=== PATIENT | male | born 1980 | race Caucasian/White ===

== ENCOUNTER 2018-01-05 03:18 | Inpatient (IN) ==
[2018-01-05] MEDS ORDERED: Sodium Chlor 0.9% Inj 500 ML IV.SIG ONE (03:25)
--- NOTE | 2018-01-05 03:35 | ED ---
HPI General Chief complaint: Overdose Stated complaint: Medical Time Seen by Provider: 01/05/18 03:24 Source: patient and EMS Mode of arrival: EMS Limitations: altered mental status (The patient is drowsy on arrival.) History of Present Illness HPI narrative: The patient is a 37 year old male who presents to the [facility] emergency department with a history of being found by a friend with a decreased level of consciousness. The patient according to the friend had used heroin this evening. The patient was noted to be apneic by ambulance services. The patient had emesis noted on his person. The patient had a thready pulse. The patient had IV access obtained and was given an total 2.4 mg of Narcan before he became more awake and alert. The patient continues to be slightly drowsy, however he had 2 episodes of vomiting in route to this facility. The patient reportedly has wheezes, rhonchi in bilateral lung gorman with diminished O2 saturations in spite of use of nonrebreather mask at high as 91%. Ambulance services are concerned that the patient may have aspirated. They report that they placed an NG tube in the patient and suctioned out a significant amount of fluid from his stomach, however he did not tolerate having the tube in place and it was removed prior to arrival. The patient's history is limited as the patient is drowsy on exam and IV heroin this evening. He reports that this is the first time that he is used heroin. He denies using any other drugs. Related Data Home Medications Medication Instructions Recorded Confirmed Unable to Obtain Home Meds 01/05/18 01/05/18 Allergies Allergy/AdvReac Type Severity Reaction Status Date / Time No Allergy Information Allergy Unverified 01/05/18 03:22 Available Review of Systems ROS Unobtainable ROS Unobtainable: unobtainable due to mental status PMFSH History History Provided By: Patient and Medical Record Medical History Medical History IVDU (intravenous drug user) (Acute) Patient denies medical problems (Acute) Surgical History Surgical History No history of previous surgery (Acute) Social History Social History Substance History: Active Abuse Smoking Status: Unknown if ever smoked How Often Do You Have a Drink Containing Alcohol: Unable to Obtain Recent Travel in [facility] within the Last 8 Weeks: No Recent Out of Country Travel within the Last 8 Weeks: No Exam Const General: cooperative and lethargic Orientation: awake, oriented to person, not oriented to place and not oriented to time [facility] Head: normocephalic and atraumatic Nose: no nasal discharge and no epistaxis Mouth: moist mucous membranes Throat: posterior oropharynx normal and uvula midline Eyes Sclera: normal sclerae Pupils: PERRL Neck Neck: no meningeal signs, trachea midline and no JVD Resp Effort & Inspection: audible wheezes and uses accessory muscles Auscultation: no crackles, rhonchi, wheezes and other (Patient has scattered rhonchi audible. The patient has expiratory wheezes audible anteriorly and posteriorly.) Cardio Rate: tachycardic (Sinus tachycardia in the 1 teens, no pulse deficits to the extremities on simultaneous auscultation and palpation of his radial artery) Rhythm: regular rhythm Heart Sounds: no gallops, no murmurs and no rubs GI Inspection: non-distended Palpation: soft, no hepatosplenomegaly and nontender Skin General: dry skin (warm) Neuro General: alert, awake, oriented (To person, however not place or time. ) and other ( The patient is uncooperative with formal neurologic testing although he does not have any noted facial asymmetry. The patient does spontaneously move all extremities with equal strength. Patient has intact sensation over all dermatomes.) Speech: speech normal Motor: no movement abnormalities noted Extrem General: normal to inspection, no clubbing, no cyanosis and no edema Procedures Intubation Time Out Performed: Yes Sedative: etomidate Mg Given: 20 Paralytic: succinylcholine Mg Given: 100 Laryngoscope: fiber optic video scope ET Tube Size: 8 ET Tube Uncuffed: Yes Tube Secured Depth (cm): 23 Tube Secured Location: teeth Tube Placement Confirmation: visualized tube passing through cords, equal breath sounds bilaterally, no breath sounds over epigastrium and confirmation by capnometry Patient Tolerated Procedure: well Intubation Complications: none Course Initial Documented Vital Signs Temperature 97.6 F 01/05/18 03:22 Pulse Rate 114 H 01/05/18 03:22 Respiratory Rate 28 H 01/05/18 03:22 Blood Pressure 150/86 H 01/05/18 03:22 Pulse Oximetry 91 L 01/05/18 03:22 Last Documented Vital Signs Temperature 100.3 F H 01/05/18 16:00 Pulse Rate 109 H 01/05/18 18:00 Respiratory Rate 20 01/05/18 18:00 Blood Pressure 106/63 01/05/18 18:00 Pulse Oximetry 91 L 01/05/18 18:00 Critical Care Time Critical Care Time: Yes Total Critical Care Time: 38 Attestation: Aggregate critical care time was 38 minutes. Time to perform other separately billable procedures was not included in the critical care time. My time did not include minutes spent treating any other patients simultaneously or on activities that did not directly contribute to the patient's treatment. The services I provided to this patient were to treat and/or prevent clinically significant deterioration that could result in: Hypoxic brain injury, versus respiratory failure, versus cardiovascular collapse from recurrent apnea, versus sepsis I provided critical care services requiring my management, as noted below: Chart data review, documentation time, medication orders and management, vital sign assessments/reviewing monitor data, ordering and reviewing lab tests, ordering and interpreting/reviewing x-rays and diagnostic studies, care of the patient and discussion of the patient with the admitting physicians. Medical Decision Making MDM Narrative Medical decision making narrative: During the course of the patient's emergency department visit, the patient's history, examination, and differential diagnosis were reviewed with the patient. The patient was placed on a monitor tech with oximetry and frequent blood pressure monitoring. The patient had IV access obtained and blood work sent for analysis. Diagnostic evaluation was started regarding the patient altered level of consciousness, possible aspiration. The patient was initially provided normal saline 500 mL bolus x1, DuoNeb's x3, continuation on a nonrebreather mask to supplement his oxygenation. The patient was being observed in the emergency department, the patient had another episode of vomiting. The patient was given Zofran 4 mg IV. The chest x -ray revealed a significant infiltrate in the right lower lung field, with continued desaturation in spite of placement on a nonrebreather mask, the patient was prepped for rapid sequence intubation which he consented to. The patient was intubated by me. An OG tube was placed to low intermittent suction, Barlow catheter was placed to gravity. The patient was placed on a propofol drip for sedation on the ventilator. Diagnostic studies revealed a white count of 14.3, hemoglobin 15.4, platelets 248 was 75.1 neutrophils, PT 10.3, PTT 24.9, chemistry revealed a BUN of 19, creatinine 1.44, calcium 7.5, AST 61, cardiac enzymes within normal limits, BNP is 4, lipase 162. Urine drug screen is positive for opiates, cocaine, cannabinoids. Alcohol level is 61, acetaminophen is less than 2, salicylate 2.4. A CT scan of the brain showed no acute intracranial abnormality, air- fluid levels in the right maxillary and sphenoid sinuses. CT scan of the chest revealed bilateral pulmonary opacity with prominent areas of consolidation in the lower lobes, central peribronchial vascular opacities in the mid to upper lung zones, difficult to diagnose if this is related to pulmonary edema versus infection. He has prominent elevation of the right hemidiaphragm, old right clavicle fracture. The patient's case including history, pertinent physical examination findings, and laboratory studies were discussed with Dr. Cortes. It was agreed that the patient would be admitted to the intensivit's service. The patient was admitted to the hospital in critical condition and sent to a bed under the care of the public health nutritionist's service. Medical Screen Exam Complete: Yes Emergency Medical Condition: Yes Differential Diagnosis Differential Diagnosis: Accidental versus intentional heroin overdose, versus polysubstance abuse, versus pulmonary edema, versus congestive heart failure, versus endocarditis, versus aspiration Medical Records Medical records reviewed: Yes I reviewed the patient's medical records. Lab Data Lab results reviewed: Yes I reviewed the patient's lab results. Result diagrams: 01/05/18 14:20 01/05/18 14:20 Lab Results 01/05/18 01/05/18 01/05/18 Range/Units 03:45 03:45 03:45 WBC 14.3 H (4.0-11.0) th/mm3 RBC 4.64 (4.50-5.90) mil/mm3 Hgb 15.4 (13.0-17.0) gm/dL Hct 46.1 (39.0-51.0) % MCV 99.3 (80.0-100.0) fL MCH 33.3 (27.0-34.0) pg MCHC 33.5 (32.0-36.0) % RDW 13.5 (11.6-17.2) % Plt Count 248 (150-450) th/mm3 MPV 8.6 (7.0-11.0) fL Neut % (Auto) 75.1 H (16.0-70.0) % Lymph % (Auto) 15.4 (9.0-44.0) % [place] % (Auto) 8.4 H (0.0-8.0) % Eos % (Auto) 0.5 (0.0-4.0) % Baso % (Auto) 0.6 (0.0-2.0) % Neut # (Auto) 10.7 H (1.8-7.7) th/mm3 Lymph # (Auto) 2.2 (1.0-4.8) th/mm3 [place] # (Auto) 1.2 H (0.0-0.9) th/mm3 Eos # (Auto) 0.1 (0.0-0.4) th/mm3 Baso # (Auto) 0.1 (0.0-0.2) th/mm3 WBC Differential . Differential Comment Auto diff final PT 10.3 (9.8-11.6) sec INR 1.0 Ratio APTT 24.9 (23.4-31.7) sec Puncture Site Patient Temperature O2 Saturation (90-100) % ABG pH (7.380-7.420) ABG pCO2 (38-42) mmHg ABG pO2 (61-120) mmHg ABG HCO3 (22-26) mmol/L ABG O2 Content (12.0-20.0) Vol % ABG Base Excess (-2-2) mmol/L ABG Methemoglobin (0-2) % Chang Test Hemoglobin (12.0-16.0) G/DL Carboxyhemoglobin (0-4) % O2 Delivery Device Vent Setting Inspired O2 % Critical Value Sodium 142 (136-145) meq/L Potassium 4.0 (3.5-5.1) meq/L Chloride 107 (98-107) meq/L Carbon Dioxide 24.4 (21.0-32.0) meq/L Anion Gap 11 (5-15) meq/L BUN 19 H (7-18) mg/dL Creatinine 1.44 H (0.60-1.30) mg/dL Estimated GFR 56 L (>89) mL/min POC Glucose (68-110) mg/dl Random Glucose 206 H (74-106) mg/dL Lactic Acid (0.4-2.0) mmol/L Calcium 7.5 L (8.5-10.1) mg/dL Magnesium (1.5-2.5) mg/dL Total Bilirubin 0.4 (0.2-1.0) mg/dL AST 61 H (15-37) U/L ALT 64 (12-78) U/L Alkaline Phosphatase 82 (45-117) U/L Total Creatine Kinase 121 (39-308) U/L CK-MB (CK-2) Less than 1.0 (0.5-3.6) ng/mL Troponin I Less than 0.02 L (0.02-0.05) ng/mL B-Natriuretic Peptide (0-100) pg/mL Total Protein 8.3 H (6.4-8.2) g/dL Albumin 4.1 (3.4-5.0) g/dL Lipase 162 (73-393) U/L Nasal Screen MRSA (PCR) (Negative) Salicylates Urine Opiates Screen (Neg) Acetaminophen (10.0-30.0) mcg/mL Ur Barbiturates Screen (Neg) Ur Amphetamines Screen (Neg) U Benzodiazepines Scrn (Neg) Urine Cocaine Screen (Neg) U Cannabinoids Screen (Neg) Serum Alcohol 61 H (0-5) mg/dL 01/05/18 01/05/18 01/05/18 Range/Units 03:45 03:45 03:45 WBC (4.0-11.0) th/mm3 RBC (4.50-5.90) mil/mm3 Hgb (13.0-17.0) gm/dL Hct (39.0-51.0) % MCV (80.0-100.0) fL MCH (27.0-34.0) pg MCHC (32.0-36.0) % RDW (11.6-17.2) % Plt Count (150-450) th/mm3 MPV (7.0-11.0) fL Neut % (Auto) (16.0-70.0) % Lymph % (Auto) (9.0-44.0) % [place] % (Auto) (0.0-8.0) % Eos % (Auto) (0.0-4.0) % Baso % (Auto) (0.0-2.0) % Neut # (Auto) (1.8-7.7) th/mm3 Lymph # (Auto) (1.0-4.8) th/mm3 [place] # (Auto) (0.0-0.9) th/mm3 Eos # (Auto) (0.0-0.4) th/mm3 Baso # (Auto) (0.0-0.2) th/mm3 WBC Differential Differential Comment PT (9.8-11.6) sec INR Ratio APTT (23.4-31.7) sec Puncture Site Patient Temperature O2 Saturation (90-100) % ABG pH (7.380-7.420) ABG pCO2 (38-42) mmHg ABG pO2 (61-120) mmHg ABG HCO3 (22-26) mmol/L ABG O2 Content (12.0-20.0) Vol % ABG Base Excess (-2-2) mmol/L ABG Methemoglobin (0-2) % Chang Test Hemoglobin (12.0-16.0) G/DL Carboxyhemoglobin (0-4) % O2 Delivery Device Vent Setting Inspired O2 % Critical Value Sodium (136-145) meq/L Potassium (3.5-5.1) meq/L Chloride (98-107) meq/L Carbon Dioxide (21.0-32.0) meq/L Anion Gap (5-15) meq/L BUN (7-18) mg/dL Creatinine (0.60-1.30) mg/dL Estimated GFR (>89) mL/min POC Glucose (68-110) mg/dl Random Glucose (74-106) mg/dL Lactic Acid (0.4-2.0) mmol/L Calcium (8.5-10.1) mg/dL Magnesium (1.5-2.5) mg/dL Total Bilirubin (0.2-1.0) mg/dL AST (15-37) U/L ALT (12-78) U/L Alkaline Phosphatase (45-117) U/L Total Creatine Kinase (39-308) U/L CK-MB (CK-2) (0.5-3.6) ng/mL Troponin I (0.02-0.05) ng/mL B-Natriuretic Peptide 4 (0-100) pg/mL Total Protein (6.4-8.2) g/dL Albumin (3.4-5.0) g/dL Lipase (73-393) U/L Nasal Screen MRSA (PCR) (Negative) Salicylates Cancelled Urine Opiates Screen (Neg) Acetaminophen Less than 2.0 L (10.0-30.0) mcg/mL Ur Barbiturates Screen (Neg) Ur Amphetamines Screen (Neg) U Benzodiazepines Scrn (Neg) Urine Cocaine Screen (Neg) U Cannabinoids Screen (Neg) Serum Alcohol (0-5) mg/dL 01/05/18 01/05/18 01/05/18 Range/Units 03:45 04:20 04:24 WBC (4.0-11.0) th/mm3 RBC (4.50-5.90) mil/mm3 Hgb (13.0-17.0) gm/dL Hct (39.0-51.0) % MCV (80.0-100.0) fL MCH (27.0-34.0) pg MCHC (32.0-36.0) % RDW (11.6-17.2) % Plt Count (150-450) th/mm3 MPV (7.0-11.0) fL Neut % (Auto) (16.0-70.0) % Lymph % (Auto) (9.0-44.0) % [place] % (Auto) (0.0-8.0) % Eos % (Auto) (0.0-4.0) % Baso % (Auto) (0.0-2.0) % Neut # (Auto) (1.8-7.7) th/mm3 Lymph # (Auto) (1.0-4.8) th/mm3 [place] # (Auto) (0.0-0.9) th/mm3 Eos # (Auto) (0.0-0.4) th/mm3 Baso # (Auto) (0.0-0.2) th/mm3 WBC Differential Differential Comment PT (9.8-11.6) sec INR Ratio APTT (23.4-31.7) sec Puncture Site Patient Temperature O2 Saturation (90-100) % ABG pH (7.380-7.420) ABG pCO2 (38-42) mmHg ABG pO2 (61-120) mmHg ABG HCO3 (22-26) mmol/L ABG O2 Content (12.0-20.0) Vol % ABG Base Excess (-2-2) mmol/L ABG Methemoglobin (0-2) % Chang Test Hemoglobin (12.0-16.0) G/DL Carboxyhemoglobin (0-4) % O2 Delivery Device Vent Setting Inspired O2 % Critical Value Sodium (136-145) meq/L Potassium (3.5-5.1) meq/L Chloride (98-107) meq/L Carbon Dioxide (21.0-32.0) meq/L Anion Gap (5-15) meq/L BUN (7-18) mg/dL Creatinine (0.60-1.30) mg/dL Estimated GFR (>89) mL/min POC Glucose (68-110) mg/dl Random Glucose (74-106) mg/dL Lactic Acid 2.6 H (0.4-2.0) mmol/L Calcium (8.5-10.1) mg/dL Magnesium (1.5-2.5) mg/dL Total Bilirubin (0.2-1.0) mg/dL AST (15-37) U/L ALT (12-78) U/L Alkaline Phosphatase (45-117) U/L Total Creatine Kinase (39-308) U/L CK-MB (CK-2) (0.5-3.6) ng/mL Troponin I (0.02-0.05) ng/mL B-Natriuretic Peptide (0-100) pg/mL Total Protein (6.4-8.2) g/dL Albumin (3.4-5.0) g/dL Lipase (73-393) U/L Nasal Screen MRSA (PCR) (Negative) Salicylates 2.4 L Urine Opiates Screen Pos H (Neg) Acetaminophen (10.0-30.0) mcg/mL Ur Barbiturates Screen Neg (Neg) Ur Amphetamines Screen Neg (Neg) U Benzodiazepines Scrn Neg (Neg) Urine Cocaine Screen Pos H (Neg) U Cannabinoids Screen Pos H (Neg) Serum Alcohol (0-5) mg/dL 01/05/18 01/05/18 01/05/18 Range/Units 05:00 07:00 07:33 WBC (4.0-11.0) th/mm3 RBC (4.50-5.90) mil/mm3 Hgb (13.0-17.0) gm/dL Hct (39.0-51.0) % MCV (80.0-100.0) fL MCH (27.0-34.0) pg MCHC (32.0-36.0) % RDW (11.6-17.2) % Plt Count (150-450) th/mm3 MPV (7.0-11.0) fL Neut % (Auto) (16.0-70.0) % Lymph % (Auto) (9.0-44.0) % [place] % (Auto) (0.0-8.0) % Eos % (Auto) (0.0-4.0) % Baso % (Auto) (0.0-2.0) % Neut # (Auto) (1.8-7.7) th/mm3 Lymph # (Auto) (1.0-4.8) th/mm3 [place] # (Auto) (0.0-0.9) th/mm3 Eos # (Auto) (0.0-0.4) th/mm3 Baso # (Auto) (0.0-0.2) th/mm3 WBC Differential Differential Comment PT (9.8-11.6) sec INR Ratio APTT (23.4-31.7) sec Puncture Site Right radial Patient Temperature 98.6 O2 Saturation 93 (90-100) % ABG pH 7.26 L* (7.380-7.420) ABG pCO2 52 H* (38-42) mmHg ABG pO2 133 H (61-120) mmHg ABG HCO3 23 (22-26) mmol/L ABG O2 Content 19.8 (12.0-20.0) Vol % ABG Base Excess -3.4 L (-2-2) mmol/L ABG Methemoglobin 1.0 (0-2) % Chang Test Present Hemoglobin 15.0 (12.0-16.0) G/DL Carboxyhemoglobin 4.1 H (0-4) % O2 Delivery Device Ventilator Vent Setting Inspired O2 100 % Critical Value Yes Sodium (136-145) meq/L Potassium (3.5-5.1) meq/L Chloride (98-107) meq/L Carbon Dioxide (21.0-32.0) meq/L Anion Gap (5-15) meq/L BUN (7-18) mg/dL Creatinine (0.60-1.30) mg/dL Estimated GFR (>89) mL/min POC Glucose (68-110) mg/dl Random Glucose (74-106) mg/dL Lactic Acid 2.6 H (0.4-2.0) mmol/L Calcium (8.5-10.1) mg/dL Magnesium (1.5-2.5) mg/dL Total Bilirubin (0.2-1.0) mg/dL AST (15-37) U/L ALT (12-78) U/L Alkaline Phosphatase (45-117) U/L Total Creatine Kinase (39-308) U/L CK-MB (CK-2) (0.5-3.6) ng/mL Troponin I (0.02-0.05) ng/mL B-Natriuretic Peptide (0-100) pg/mL Total Protein (6.4-8.2) g/dL Albumin (3.4-5.0) g/dL Lipase (73-393) U/L Nasal Screen MRSA (PCR) Not detected (Negative) Salicylates Urine Opiates Screen (Neg) Acetaminophen (10.0-30.0) mcg/mL Ur Barbiturates Screen (Neg) Ur Amphetamines Screen (Neg) U Benzodiazepines Scrn (Neg) Urine Cocaine Screen (Neg) U Cannabinoids Screen (Neg) Serum Alcohol (0-5) mg/dL 01/05/18 01/05/18 01/05/18 Range/Units 09:36 12:57 14:17 WBC (4.0-11.0) th/mm3 RBC (4.50-5.90) mil/mm3 Hgb (13.0-17.0) gm/dL Hct (39.0-51.0) % MCV (80.0-100.0) fL MCH (27.0-34.0) pg MCHC (32.0-36.0) % RDW (11.6-17.2) % Plt Count (150-450) th/mm3 MPV (7.0-11.0) fL Neut % (Auto) (16.0-70.0) % Lymph % (Auto) (9.0-44.0) % [place] % (Auto) (0.0-8.0) % Eos % (Auto) (0.0-4.0) % Baso % (Auto) (0.0-2.0) % Neut # (Auto) (1.8-7.7) th/mm3 Lymph # (Auto) (1.0-4.8) th/mm3 [place] # (Auto) (0.0-0.9) th/mm3 Eos # (Auto) (0.0-0.4) th/mm3 Baso # (Auto) (0.0-0.2) th/mm3 WBC Differential Differential Comment PT (9.8-11.6) sec INR Ratio APTT (23.4-31.7) sec Puncture Site Right radial Left radial Patient Temperature 98.6 98.6 O2 Saturation 89 L* 94 (90-100) % ABG pH 7.31 L 7.36 L (7.380-7.420) ABG pCO2 50 H 45 H (38-42) mmHg ABG pO2 68 90 (61-120) mmHg ABG HCO3 24 25 (22-26) mmol/L ABG O2 Content 19.7 20.5 H (12.0-20.0) Vol % ABG Base Excess -1.0 -0.2 (-2-2) mmol/L ABG Methemoglobin 1.4 1.5 (0-2) % Chang Test Present Present Hemoglobin 15.8 15.4 (12.0-16.0) G/DL Carboxyhemoglobin 1.9 1.2 (0-4) % O2 Delivery Device Ventilator Ventilator Vent Setting Prvc ac Prvc ac Inspired O2 75 70 % Critical Value Yes No Sodium (136-145) meq/L Potassium (3.5-5.1) meq/L Chloride (98-107) meq/L Carbon Dioxide (21.0-32.0) meq/L Anion Gap (5-15) meq/L BUN (7-18) mg/dL Creatinine (0.60-1.30) mg/dL Estimated GFR (>89) mL/min POC Glucose 122 H (68-110) mg/dl Random Glucose (74-106) mg/dL Lactic Acid (0.4-2.0) mmol/L Calcium (8.5-10.1) mg/dL Magnesium (1.5-2.5) mg/dL Total Bilirubin (0.2-1.0) mg/dL AST (15-37) U/L ALT (12-78) U/L Alkaline Phosphatase (45-117) U/L Total Creatine Kinase (39-308) U/L CK-MB (CK-2) (0.5-3.6) ng/mL Troponin I (0.02-0.05) ng/mL B-Natriuretic Peptide (0-100) pg/mL Total Protein (6.4-8.2) g/dL Albumin (3.4-5.0) g/dL Lipase (73-393) U/L Nasal Screen MRSA (PCR) (Negative) Salicylates Urine Opiates Screen (Neg) Acetaminophen (10.0-30.0) mcg/mL Ur Barbiturates Screen (Neg) Ur Amphetamines Screen (Neg) U Benzodiazepines Scrn (Neg) Urine Cocaine Screen (Neg) U Cannabinoids Screen (Neg) Serum Alcohol (0-5) mg/dL 01/05/18 01/05/18 Range/Units 14:20 14:20 WBC 8.0 (4.0-11.0) th/mm3 RBC 4.44 L (4.50-5.90) mil/mm3 Hgb 15.4 (13.0-17.0) gm/dL Hct 43.3 (39.0-51.0) % MCV 97.6 (80.0-100.0) fL MCH 34.6 H (27.0-34.0) pg MCHC 35.5 (32.0-36.0) % RDW 13.4 (11.6-17.2) % Plt Count 180 (150-450) th/mm3 MPV 8.9 (7.0-11.0) fL Neut % (Auto) 80.4 H (16.0-70.0) % Lymph % (Auto) 6.7 L (9.0-44.0) % [place] % (Auto) 12.5 H (0.0-8.0) % Eos % (Auto) 0.3 (0.0-4.0) % Baso % (Auto) 0.1 (0.0-2.0) % Neut # (Auto) 6.4 (1.8-7.7) th/mm3 Lymph # (Auto) 0.5 L (1.0-4.8) th/mm3 [place] # (Auto) 1.0 H (0.0-0.9) th/mm3 Eos # (Auto) 0.0 (0.0-0.4) th/mm3 Baso # (Auto) 0.0 (0.0-0.2) th/mm3 WBC Differential . Differential Comment Auto diff final PT (9.8-11.6) sec INR Ratio APTT (23.4-31.7) sec Puncture Site Patient Temperature O2 Saturation (90-100) % ABG pH (7.380-7.420) ABG pCO2 (38-42) mmHg ABG pO2 (61-120) mmHg ABG HCO3 (22-26) mmol/L ABG O2 Content (12.0-20.0) Vol % ABG Base Excess (-2-2) mmol/L ABG Methemoglobin (0-2) % Chang Test Hemoglobin (12.0-16.0) G/DL Carboxyhemoglobin (0-4) % O2 Delivery Device Vent Setting Inspired O2 % Critical Value Sodium 145 (136-145) meq/L Potassium 3.9 (3.5-5.1) meq/L Chloride 111 H (98-107) meq/L Carbon Dioxide 26.6 (21.0-32.0) meq/L Anion Gap 7 (5-15) meq/L BUN 20 H (7-18) mg/dL Creatinine 1.13 (0.60-1.30) mg/dL Estimated GFR 73 L (>89) mL/min POC Glucose (68-110) mg/dl Random Glucose 108 H (74-106) mg/dL Lactic Acid (0.4-2.0) mmol/L Calcium 8.0 L (8.5-10.1) mg/dL Magnesium 1.5 (1.5-2.5) mg/dL Total Bilirubin 1.3 H (0.2-1.0) mg/dL AST 41 H (15-37) U/L ALT 48 (12-78) U/L Alkaline Phosphatase 56 (45-117) U/L Total Creatine Kinase (39-308) U/L CK-MB (CK-2) (0.5-3.6) ng/mL Troponin I (0.02-0.05) ng/mL B-Natriuretic Peptide (0-100) pg/mL Total Protein 6.3 L D (6.4-8.2) g/dL Albumin 3.3 L D (3.4-5.0) g/dL Lipase (73-393) U/L Nasal Screen MRSA (PCR) (Negative) Salicylates Urine Opiates Screen (Neg) Acetaminophen (10.0-30.0) mcg/mL Ur Barbiturates Screen (Neg) Ur Amphetamines Screen (Neg) U Benzodiazepines Scrn (Neg) Urine Cocaine Screen (Neg) U Cannabinoids Screen (Neg) Serum Alcohol (0-5) mg/dL Imaging Data Radiologist's impression: Chest CT 01/05/18 00:00 CONCLUSION: 1. Bilateral pulmonary opacity with prominent areas of consolidation in the lower lobes. Central peribronchovascular opacities in the mid to upper lung zones. Difficult diagnosis is pulmonary edema versus infection. 2. No significant pleural effusion. 3. Prominent elevation of the right hemidiaphragm. 4. Old right clavicle fracture. Chest X-Ray 01/05/18 03:25 CONCLUSION: 1. Prominent elevation of right hemidiaphragm. 2. Right lower lobe consolidation versus atelectasis. 3. Small to moderate sized right pleural effusion. Chest X-Ray 01/05/18 04:08 CONCLUSION: Persistent elevation of the right hemidiaphragm. Increased patchy bilateral pulmonary opacity. Right pleural effusion unchanged. Head CT 01/05/18 05:01 CONCLUSION: 1. No acute intracranial findings. 2. Air-fluid levels in the right maxillary and sphenoid sinuses suggesting possible acute sinusitis versus air-fluid levels related to intubation.. . ECG Data Attestation: I personally reviewed and interpreted this ECG as follows: Interpretation: The patient had an EKG done on arrival. The patient's EKG reveals a sinus tachycardia rate of 115, QRS duration is 95 ms, QTC [address] segment elevation. Discharge Plan Discharge Disposition Patient Disposition: 30 Still Patient Discharge Details Diagnosis: Respiratory failure, Heroin overdose Physicians Team ED Provider: Leeanne Lovett Primary Care Provider: UNKNOWN, Attending Provider: Izzy Cortes Status ED Status: Left Department Discharge Information Discharge Date/Time: 01/05/18 06:01
[2018-01-05] MEDS ORDERED: Propofol 1000 mg/100 ml Inj 1,000 MG/100 ML BOTTLE IV.CONT PRN (03:44)
[2018-01-05] MEDS ORDERED: Etomidate Inj 40 MG/20 ML Vial IV.PUSH ONE (03:44)
[2018-01-05] MEDS ORDERED: Succinylcholine Inj 100 MG/5 ML Syringe IV.PUSH ONE (03:44)
[2018-01-05 03:53] LABS: Baso # (Auto) 0.1 th/mm3 (0.0-0.2); Baso % (Auto) 0.6 % (0.0-2.0); Eos # (Auto) 0.1 th/mm3 (0.0-0.4); Eos % (Auto) 0.5 % (0.0-4.0); Hematocrit 46.1 % (39.0-51.0); Hemoglobin 15.4 gm/dL (13.0-17.0); Lymph # (Auto) 2.2 th/mm3 (1.0-4.8); Lymph % (Auto) 15.4 % (9.0-44.0); Mean Corpuscular HGB Conc 33.5 % (32.0-36.0); Mean Corpuscular Hemoglobin 33.3 pg (27.0-34.0); Mean Corpuscular Volume 99.3 fL (80.0-100.0); Mean Platelet Volume 8.6 fL (7.0-11.0); Mono # (Auto) 1.2 th/mm3 (0.0-0.9); Mono % (Auto) 8.4 % (0.0-8.0); Neut # (Auto) 10.7 th/mm3 (1.8-7.7); Neut % (Auto) 75.1 % (16.0-70.0); Platelet Count 248 th/mm3 (150-450); Red Blood Count 4.64 mil/mm3 (4.50-5.90); Red Cell Distribution Width 13.5 % (11.6-17.2); White Blood Count 14.3 th/mm3 (4.0-11.0)
--- NOTE | 2018-01-05 03:53 | XR ---
EXAM DATE: 01/05/2018 3:48 AM EST AGE/SEX: 37 years / Male INDICATIONS: Short of breath. Possible overdose. CLINICAL DATA: This is the patient's initial encounter. Patient reports that signs and symptoms have been present for 1 day and indicates a pain score of Nonresponsive. MEDICAL/SURGICAL HISTORY: Non-responsive. Non-responsive. COMPARISON: No prior exams available for comparison. FINDINGS: Single AP view of the chest. Elevation of the right hemidiaphragm. Small to moderate-sized right pleu ral effusion. Right lower lobe consolidation versus atelectasis. Left lung clear. No evidence of pneu mothorax. Cardiomediastinal silhouette within normal limits. CONCLUSION: 1. Prominent elevation of right hemidiaphragm. 2. Right lower lobe consolidation versus atelectasis. 3. Small to moderate sized right pleural effusion. Electronically signed by: Joseph Locke MD 01/05/2018 3:52 AM EST
[2018-01-05 04:04] LABS: Activated Partial Thrombo Time 24.9 sec (23.4-31.7); Prothrombin Time 10.3 sec (9.8-11.6)
[2018-01-05 04:12] LABS: Alanine Aminotransferase 64 U/L (12-78)
[2018-01-05 04:16] LABS: Alkaline Phosphatase 82 U/L (45-117); Creatine Kinase 121 U/L (39-308); Total Protein 8.3 g/dL (6.4-8.2)
[2018-01-05 04:17] LABS: Albumin 4.1 g/dL (3.4-5.0); Anion Gap 11 meq/L (5-15); Aspartate Aminotransferase 61 U/L (15-37); Blood Urea Nitrogen 19 mg/dL (7-18); Calcium 7.5 mg/dL (8.5-10.1); Carbon Dioxide 24.4 meq/L (21.0-32.0); Chloride 107 meq/L (98-107); Glomerular Filtration Rate 56 mL/min (>89); Glucose,Random 206 mg/dL (74-106); Lipase 162 U/L (73-393); Sodium 142 meq/L (136-145)
[2018-01-05 04:24] LABS: Alcohol 61 mg/dL (0-5)
[2018-01-05] MEDS ORDERED: Ampicillin/Sulbactam Inj 3 GM in Sodium Chloride 0.9% Inj 100 ML IV.SIG ONE (04:24)
[2018-01-05 04:43] LABS: Amphetamine Screen,Urine Neg (Neg); Barbiturate Screen,Urine Neg (Neg); Cannabinoid Screen,Urine Pos (Neg); Cocaine Screen,Urine Pos (Neg)
[2018-01-05 04:46] LABS: Opiate Screen,Urine Pos (Neg)
[2018-01-05] MEDS ORDERED: fentaNYL Citrate Inj 100 MCG/2 ML Ampul IV PUSH PRN (04:48)
[2018-01-05] MEDS ORDERED: Bisacodyl 10 MG Supp RECTAL PRN (04:48)
--- NOTE | 2018-01-05 05:04 | P.HPCC ---
History of Present Illness Service: Critical care medicine Primary Care Physician: UNKNOWN Chief Complaint: Opioid overdose, vomiting, hypoxia History of Present Illness: 37-year-old male who is brought to [facility] emergency department after friends contacted [facility] due to decreased mental status with suspected heroin overdose. He had used heroin earlier in the evening. [facility] reportedly found him laying in emesis with a thready pulse. They gave him sequential doses of Narcan to a total of 2.4 mg IV at which point he became more awake and alert. He then had multiple episodes of vomiting in route. NG tube was placed by the paramedics and they aspirated gastric contents and then removed s NG prior to arrival. His room air sats were reportedly 84% and he was placed on NR. Patient told Dr. Lovett that this was his first time using heroin and that he injected it. CXR demonstrated RLL opacity. He was started on Unasyn for aspiration pneumonia and given nebs. He eventually was intubated due to hypoxia with sats in high 80s despite nonrebreather. Talkback Host consulted for admission. - Diagnosis (1) Heroin overdose (2) Polysubstance abuse (3) Cocaine abuse (4) Elevated ETOH level (5) Marijuana abuse (6) TORREY (acute kidney injury) (7) Severe sepsis (8) Acute respiratory failure with hypoxia (9) Aspiration pneumonia (10) Vomiting (11) Hyperglycemia Review of Systems unobtainable due to endotracheal tube, unobtainable due to mental status PMFSH - History History Provided By: Patient, Medical Record - Medical / Surgical Hx Neg / Unobtainable Medical Problems Denied: Unable to Obtain Surgical History: Unable to Obtain - Medical History Medical History: Medical History (Last Updated 01/05/18 @ 03:25 by Jodie Vaz) Patient denies medical problems - Surgical History Surgical History: Surgical History (Last Updated 01/05/18 @ 03:25 by Jodie Vaz) No history of previous surgery - Social History I have reviewed the patient's Social History: Yes - Tobacco History Smoking Status: Unknown if ever smoked - Alcohol History How Often Do You Have a Drink Containing Alcohol: Unable to Obtain - Substance Use History Substance History: Active Abuse - Substance Use Type LSD, Mushrooms Status: Active Route Used: Inhalation - Travel History Recent Travel in the [facility] Within the Last 8 Weeks: No Recent Travel Out of the Country Within the Last 8 Weeks: No - Immunization History Tetanus Immunization: Unable to Assess Medications and Allergies Active Medications: Active Medications Acetaminophen (Tylenol) 650 mg PO Q6H PRN PRN Reason: PAIN 1-10 AND/OR FEVER >101F Al Hydroxide/Mg Hydroxide (Milk Of Magnesia Liq) 30 ml PO Q12H PRN PRN Reason: Mild Constipation Albuterol (Albuterol Neb (Prn)) 2.5 mg NEB Q2HR NEB PRN PRN Reason: SHORTNESS OF BREATH/WHEEZING Albuterol (Duoneb Neb (Ocsar)) 1 ampul NEB Q6HR NEB OSCAR Bisacodyl (Dulcolax Supp) 10 mg RECTAL DAILY PRN PRN Reason: SEVERE CONSITIPATION Chlorhexidine Gluconate (Chlorhexidine 2% Cloth) 3 pack TOPICAL DAILY@0400 OSCAR Stop: 01/11/18 03:59 Chlorhexidine Gluconate (Chlorhexidine 2% Cloth) 3 pack TOPICAL DAILY@0400 PRN PRN Reason: Extra cloth needed Stop: 01/11/18 03:59 Dextrose (D50w Vial) 50 ml IV.PUSH UNSCH PRN PRN Reason: PER HYPOGLYCEMIA PROTOCOL Famotidine (Pepcid Pf Inj) 20 mg IV.PUSH Q12HR OSCAR Fentanyl Citrate (Fentanyl Inj) 50 mcg IV PUSH Q1H PRN PRN Reason: Pain scale 6-10, &/or sedation Glucagon (Glucagon Inj) 1 mg OTHER PRN PRN PRN Reason: for Hypoglycemia Protocol Propofol (Diprivan 1000 Mg/100 Ml Inj) 1,000 mg in 100 mls @ 2.585 mls/hr IV.CONT TITRATE PRN; Protocol PRN Reason: Per Protocol Last Titration: 01/05/18 04:31 Dose: 60 mcg/kg/min, 31.03 mls/hr Ampicillin Sodium/Sulbactam (Sodium 3 gm/ Sodium Chloride) 100 mls @ 200 mls/ hr IV.SIG Q6H OSCAR Potassium Chloride/Dextrose/Sod Cl (D5w/1/2ns + Kcl 20 Meq Inj) 1,000 mls @ 100 mls/hr IV.CONT .Q10H OSCAR Insulin Aspart (Novolog Insulin Correctional Sugar Inj) 0 unit SQ Q6HR OSCAR; Protocol Lactulose (Lactulose Liq) 30 ml PO DAILY PRN PRN Reason: SEVERE CONSITIPATION Ondansetron HCl (Zofran Inj) 4 mg IV.PUSH Q6H PRN PRN Reason: NAUSEA OR VOMITING Senna/Docusate Sodium (Rosette-Colace) 1 tab PO BID OSCAR Sennosides (Senokot) 17.2 mg PO Q12H PRN PRN Reason: Moderate Constipation Sodium Chloride (Ns Flush) 2 ml IV.FLUSH PRN PRN PRN Reason: FLUSH AFTER USING IV ACCESS Sodium Chloride (Ns Flush) 2 ml IV.FLUSH BID OSCAR Sodium Chloride (Ns Flush) 2 ml IV.FLUSH PRN PRN PRN Reason: FLUSH AFTER USING IV ACCESS Allergies Allergy/AdvReac Type Severity Reaction Status Date / Time No Allergy Information Allergy Unverified 01/05/18 03:22 Available Home Medications Medication Instructions Recorded Confirmed Type Unable to Obtain Home Meds 01/05/18 01/05/18 History Results - Labs CBC & Chem 7: 01/05/18 03:45 01/05/18 03:45 Labs: Short CBC 01/05/18 Range/Units 03:45 WBC 14.3 H (4.0-11.0) th/mm3 Hgb 15.4 (13.0-17.0) gm/dL Hct 46.1 (39.0-51.0) % Plt Count 248 (150-450) th/mm3 BMP 01/05/18 03:45 Sodium 142 Potassium 4.0 Chloride 107 Carbon Dioxide 24.4 BUN 19 H Creatinine 1.44 H Calcium 7.5 L Cardiac Enzymes 01/05/18 Range/Units 03:45 Total Creatine Kinase 121 (39-308) U/L CK-MB (CK-2) Less than 1.0 (0.5-3.6) ng/mL Troponin I Less than 0.02 L (0.02-0.05) ng/mL Liver Function 01/05/18 Range/Units 03:45 Total Bilirubin 0.4 (0.2-1.0) mg/dL AST 61 H (15-37) U/L ALT 64 (12-78) U/L Alkaline Phosphatase 82 (45-117) U/L Albumin 4.1 (3.4-5.0) g/dL - Imaging Impressions Chest X-Ray 01/05/18 03:25 CONCLUSION: 1. Prominent elevation of right hemidiaphragm. 2. Right lower lobe consolidation versus atelectasis. 3. Small to moderate sized right pleural effusion. Exam Vital signs: Vital Signs 01/05/18 03:22 01/05/18 03:24 01/05/18 03:25 Temperature 97.6 F Pulse Rate 114 H 114 H 118 H Respiratory Rate 28 H 16 Blood Pressure 150/86 H Pulse Oximetry 91 L 01/05/18 03:33 01/05/18 03:35 01/05/18 03:42 Temperature Pulse Rate 116 H 118 H 120 H Respiratory Rate 29 H 24 16 Blood Pressure 142/77 H Pulse Oximetry 86 L 01/05/18 04:08 01/05/18 04:09 01/05/18 04:17 Temperature Pulse Rate 106 H 109 H 106 H Respiratory Rate 14 25 H Blood Pressure 132/75 150/80 H Pulse Oximetry 93 L 91 L 97 01/05/18 04:20 01/05/18 04:45 Temperature Pulse Rate 96 H Respiratory Rate 23 14 Blood Pressure 132/70 Pulse Oximetry 94 L 98 Intake & Output 01/04/18 01/04/18 01/05/18 06:59 18:59 06:59 Intake Total 500 / 500 Balance 500 / 500 Weight 86.183 kg Intake: IV 500 / 500 NS Inj 500 ML @ Wide Open IV. 500 / 500 SIG BOLUS ONE Rx#:[id number] Narrative: GENERAL: Well-nourished, well-developed patient who is orotracheally intubated. He is on sedation with propofol 60 mg/kg/min currently. SKIN: Warm and dry. No splinter hemorrhages HEAD: Atraumatic. Normocephalic. EYES: Pupils equal and round, 2 mm and sluggishly reactive bilaterally.. No scleral icterus. No injection or drainage. ENT: No nasal bleeding or discharge. Mucous membranes pink and moist. NECK: Trachea midline. No JVD. CARDIOVASCULAR: Regular rate and rhythm. No murmurs rubs or gallops. RESPIRATORY: Orotracheally intubated. Rhonchorous breath sounds bilaterally. Diminished right base. Occasional wheeze. GASTROINTESTINAL: Abdomen soft, non-tender, nondistended. Bowel sounds present. OG tube in place. MUSCULOSKELETAL: Extremities without clubbing, cyanosis, or edema. No obvious deformities. NEUROLOGICAL: Sedated on propofol. Opens eyes to stimulation and all extremities without apparent focal deficit. Caprini VTE Risk Assessment Caprini VTE Risk Assessment: Moderate/High Risk (score >= 2) Caprini Risk Assessment Model: Point Value = 1 Point Value = 2 Point Value = 3 Point Value = 5 Age 41-60 Minor surgery BMI > 25 kg/m2 Swollen legs Varicose veins or History of unexplained or recurrent spontaneous Oral contraceptives or hormone replacement Sepsis (< 1 month) Serious lung disease, including pneumonia (< 1 month) Abnormal pulmonary function Acute myocardial infarction Congestive heart failure (< 1 month) History of inflammatory bowel disease Medical patient at bed rest Age 61-74 Arthroscopic surgery Major open surgery (> 45 min) Laparoscopic surgery (> 45 min) Malignancy Confined to bed (> 72 hours) Immobilizing plaster cast Central venous access Age >= 75 History of VTE Family history of VTE Factor V Leiden Prothrombin [id number] Lupus anticoagulant Anticardiolipin antibodies Elevated serum homocysteine Heparin-induced thrombocytopenia Other congenital or acquired thrombophilia Stroke (< 1 month) Elective arthroplasty Hip, pelvis, or leg fracture Acute spinal cord injury (< 1 month) Prophylaxis Regimen: Total Risk Factor Score Risk Level Prophylaxis Regimen 0-1 Low Early ambulation 2 Moderate Order ONE of the following: *Sequential Compression Device (SCD) *Heparin 5000 units SQ BID 3-4 Higher Order ONE of the following medications: *Heparin 5000 units SQ TID *Enoxaparin/Lovenox 40 mg SQ daily (WT < 150 kg, CrCl > 30 mL/min) *Enoxaparin/Lovenox 30 mg SQ daily (WT < 150 kg, CrCl > 10-29 mL/min) *Enoxaparin/Lovenox 30 mg SQ BID (WT < 150 kg, CrCl > 30 mL/min) AND/OR *Sequential Compression Device (SCD) 5 or more Highest Order ONE of the following medications: *Heparin 5000 units SQ TID (Preferred with Epidurals) *Enoxaparin/Lovenox 40 mg SQ daily (WT < 150 kg, CrCl > 30 mL/min) *Enoxaparin/Lovenox 30 mg SQ daily (WT < 150 kg, CrCl > 10-29 mL/min) *Enoxaparin/Lovenox 30 mg SQ BID (WT < 150 kg, CrCl > 30 mL/min) AND *Sequential Compression Device (SCD) Assessment and Plan - Problem List (1) Heroin overdose Code(s): T40.1X1A - Poisoning by heroin, accidental (unintentional), initial encounter Status: Acute (2) Polysubstance abuse Code(s): F19.10 - Other psychoactive substance abuse, uncomplicated Status: Chronic (3) Cocaine abuse Code(s): F14.10 - Cocaine abuse, uncomplicated Status: Acute (4) Elevated ETOH level Code(s): R78.0 - Finding of alcohol in blood Status: Acute (5) Marijuana abuse Code(s): F12.10 - Cannabis abuse, uncomplicated Status: Acute (6) TORREY (acute kidney injury) Code(s): N17.9 - Acute kidney failure, unspecified Status: Acute (7) Severe sepsis Code(s): A41.9 - Sepsis, unspecified organism; R65.20 - Severe sepsis without septic shock Status: Acute (8) Acute respiratory failure with hypoxia Code(s): J96.01 - Acute respiratory failure with hypoxia Status: Acute (9) Aspiration pneumonia Code(s): J69.0 - Pneumonitis due to inhalation of food and vomit Status: Acute (10) Vomiting Code(s): R11.10 - Vomiting, unspecified Status: Acute (11) Hyperglycemia Code(s): R73.9 - Hyperglycemia, unspecified Status: Acute - Assessment and Plan Plan: NEURO: Heroin overdose Polysubstance abuse (marijuana, opiate, cocaine) Alcohol level was 61 on admission. Propofol and fentanyl will provide sedation. Monitor for signs and symptoms of alcohol withdrawal Thiamine/multivitamin supplementation Follow-up CT brain RESP: Acute hypoxemic respiratory failure Acute aspiration pneumonia Intubated in ED 01/05 due to hypoxia. PRVC with ventilator bundle. Daily sedation vacation and spontaneous breathing trial 01/06 DuoNeb every 6 hours. Albuterol every 2 hours as needed. CXR shows RLL opacity. F/u CT scan to evaluate for effusion. CV: Telemetry and BP monitoring in ICU Received normal saline 500 in the emergency department. We will give another 1 L normal saline bolus now. GI: Vomiting - likely secondary to opioid withdrawal OGT to RENNY Eng prn . FEN/RENAL: TORREY - suspect pre-renal secondary to overdose and sepsis. CPK is normal ID: Severe Sepsis secondary to aspiration pneumonia Follow-up blood cultures. Send sputum culture. Received Unasyn in the emergency department for community-acquired aspiration pneumonia which will continue for now. We will add vancomycin if there is any evidence septic emboli noted on the CT scan. HEME: No acute hematologic issues. Coags are normal. ENDO: Acute hyperglycemia Monitor bedside glucose every 6 hours and administer low-dose insulin sliding scale as indicated. PROPH: SCDs for DVT prophylaxis. Initiate Lovenox 40 mg subcu daily for DVT prophylaxis if CT brain is negative. Famotidine IV for stress ulcer prophylaxis ACCESS: Peripheral IV in left EJ is providing adequate access at this time. Full code There is no family contact information at this point Discussed with Dr. Lovett. Level 3 H&P
[2018-01-05] MEDS: KCL 20 mEq/D5W/NaCl 0.45% Inj 1,000 ML IV.CONT SCH ×2 (05:13→15:12)
[2018-01-05 05:26] LABS: ABG Base Excess -3.4 mmol/L (-2-2); ABG PCO2 52 mmHg (38-42); ABG PO2 133 mmHg (61-120)
--- NOTE | 2018-01-05 05:32 | XR ---
EXAM DATE: 01/05/2018 5:01 AM EST AGE/SEX: 37 years / Male INDICATIONS: Post intubation. CLINICAL DATA: This is the patient's subsequent encounter. Patient reports that signs and symptoms h ave been present for 1 day and indicates a pain score of Nonresponsive. MEDICAL/SURGICAL HISTORY: Non-responsive. Non-responsive. COMPARISON: [facility] [place] 1V SINGLE AP, 01/05/2018. . FINDINGS: Single AP view the chest. Endotracheal tube is now in place with the tip 4 to 5 cm above the jhony. Nasogastric tube is in place with the tip below the [id number] of the radiograph. Persistent eleva tion of the right hemidiaphragm. Increased patchy bilateral pulmonary opacity. Right pleural effusion unchanged. CONCLUSION: Persistent elevation of the right hemidiaphragm. Increased patchy bilateral pulmonary opacity. Right pleural effusion unchanged. Electronically signed by: Joseph Locke MD 01/05/2018 5:31 AM EST
[2018-01-05] MEDS: fentaNYL 10 mcg/mL Premix Drip 2,500 MCG/250 ML BAG IV.SIG PRN ×2 (05:42→22:50)
[2018-01-05] MEDS ORDERED: Sod Chloride 0.9% Inj 1,000 ML IV.SIG SCH (05:45)
--- NOTE | 2018-01-05 06:34 | CT ---
EXAM DATE: 01/05/2018 6:20 AM EST AGE/SEX: 37 years / Male INDICATIONS: Altered mental status. CLINICAL DATA: This is the patient's initial encounter. Patient reports that signs and symptoms have been present for 1 day and indicates a pain score of Nonresponsive. MEDICAL/SURGICAL HISTORY: Non-responsive. Non-responsive. RADIATION DOSE: 56.35 CTDI (mGy) COMPARISON: No prior exams available for comparison. TECHNIQUE: CT of the head without contrast. Using automated exposure control and adjustment of the mA and/or kV according to patient size, radiation dose was kept as low as reasonably achievable to ob tain optimal diagnostic quality images. DICOM format image data is available electronically for revi ew and comparison. FINDINGS: Cerebrum: The ventricles are normal for age. No evidence of midline shift, mass lesion, hemorrhage or acute infarction. No extraaxial fluid collections are seen. Posterior Fossa: The cerebellum and brainstem are intact. The 4th ventricle is midline. The cerebe llopontine angle is unremarkable. Extracranial: Moderate partial opacification of the ethmoid sinuses. Small air-fluid level right max illary sinus. Moderate-sized air-fluid levels sphenoid sinus. Skull: The calvaria is intact. No evidence of skull fracture. CONCLUSION: 1. No acute intracranial findings. 2. Air-fluid levels in the right maxillary and sphenoid sinuses suggesting possible acute sinusitis versus air-fluid levels related to intubation.. . Electronically signed by: Joseph Locke MD 01/05/2018 6:33 AM EST
--- NOTE | 2018-01-05 06:40 | CT ---
EXAM DATE: 01/05/2018 6:21 AM EST AGE/SEX: 37 years / Male INDICATIONS: Respiratory failure. CLINICAL DATA: This is the patient's initial encounter. Patient reports that signs and symptoms have been present for 1 day and indicates a pain score of Nonresponsive. MEDICAL/SURGICAL HISTORY: Non-responsive. Non-responsive. RADIATION DOSE: 7.09 CTDI (mGy) COMPARISON: No prior exams available for comparison. TECHNIQUE: Multiple contiguous axial images were obtained through the chest without contrast. Image s were obtained in suspended respiration using multiple row detector helical technique. Using [place] exposure control and adjustment of the mA and/or kV according to patient size, radiation dose was kept as low as reasonably achievable to obtain optimal diagnostic quality images. DICOM format imag e data is available electronically for review and comparison. FINDINGS: Lungs: Large area of left lower lobe consolidation with air bronchograms. Moderate-sized area of rig ht lower lobe pulmonary consolidation Fairly symmetric central bilateral mid to upper lung zone perib ronchovascular opacities that are mixed rounded opacities and ill-defined groundglass opacity. Promin ent elevation of the right hemidiaphragm. Mediastinum: No enlarged lymph nodes. Aortic diameter within normal limits. Pleurae: No significant pleural effusion. No evidence of pneumothorax. Axillae: Unremarkable. Bony Structures: Old right clavicle fracture. Miscellaneous: Upper abdomen is unremarkable. CONCLUSION: 1. Bilateral pulmonary opacity with prominent areas of consolidation in the lower lobes. Central per ibronchovascular opacities in the mid to upper lung zones. Difficult diagnosis is pulmonary edema yudi phuong infection. 2. No significant pleural effusion. 3. Prominent elevation of the right hemidiaphragm. 4. Old right clavicle fracture. Electronically signed by: Joseph Locke MD 01/05/2018 6:39 AM EST
[2018-01-05] MEDS ORDERED: Propofol Inj 500 MG/50 ML Vial ONE (07:18)
[2018-01-05] MEDS: Famotidine PF Inj 20 MG/2 ML Vial IV.PUSH SCH ×2 (08:37→22:32)
[2018-01-05] MEDS: Insulin NovoLOG Aspart Correctional Sugar Inj SQ SCH ×3 (08:38→18:15)
[2018-01-05] MEDS: Chlorhexidine 0.12% Oral Kit 15 ML UDC OROPHARYNG SCH ×2 (08:38→22:32)
[2018-01-05] MEDS: Senna/Docusate Sodium 8.6/50 MG Tablet PO SCH ×2 (08:39→22:33)
[2018-01-05] MEDS: Propofol 1000 mg/100 ml Inj 1,000 MG/100 ML BOTTLE IV.CONT PRN ×3 (08:39→18:45)
[2018-01-05] MEDS: Thiamine Inj 100 MG in Sodium Chlor 0.9% Inj 100 ML IV.SIG SCH (09:24)
[2018-01-05] MEDS: Ampicillin/Sulbactam Inj 3 GM in Sodium Chloride 0.9% Inj 100 ML IV.SIG SCH ×3 (09:24→22:33)
[2018-01-05 09:46] LABS: ABG PCO2 50 mmHg (38-42); ABG PO2 68 mmHg (61-120)
--- NOTE | 2018-01-05 13:25 | ECG ---
Date Performed: 01/05/2018 Time Performed: 03:29:43 PTAGE: 37 years EKG: SINUS TACHYCARDIA ABNORMAL RHYTHM ECG Since the PREVIOUS TRACING , no significant change noted PREVIOUS TRACIN09/02/1994 17.35 DOCTOR: Macey Esparza Interpretating Date/Time 01/05/2018 13:22:53
[2018-01-05] MEDS: Oral Hygiene Kit OROPHARYNG SCH ×2 (13:32→15:55)
--- NOTE | 2018-01-05 13:47 | ECG ---
Date Performed: 01/05/2018 Time Performed: 09:58:57 PTAGE: 37 years EKG: Sinus tachycardia NONSPECIFIC T-WAVE ABNORMALITY Compared to previous tracing patient has d eveloped inferior T wave inversion but there is otherwise no overt serial change ABNORMAL RHYTHM ECG PREVIOUS TRACING : 01/05/2018 03.29 DOCTOR: Macey Esparza Interpretating Date/Time 01/05/2018 13:45:51
[2018-01-05 14:27] LABS: ABG Base Excess -0.2 mmol/L (-2-2); ABG PCO2 45 mmHg (38-42); ABG PO2 90 mmHg (61-120)
[2018-01-05 14:52] LABS: Baso % (Auto) 0.1 % (0.0-2.0); Eos % (Auto) 0.3 % (0.0-4.0); Hematocrit 43.3 % (39.0-51.0); Hemoglobin 15.4 gm/dL (13.0-17.0); Lymph # (Auto) 0.5 th/mm3 (1.0-4.8); Lymph % (Auto) 6.7 % (9.0-44.0); Mean Corpuscular HGB Conc 35.5 % (32.0-36.0); Mean Corpuscular Hemoglobin 34.6 pg (27.0-34.0); Mean Corpuscular Volume 97.6 fL (80.0-100.0); Mean Platelet Volume 8.9 fL (7.0-11.0); Mono % (Auto) 12.5 % (0.0-8.0); Neut # (Auto) 6.4 th/mm3 (1.8-7.7); Neut % (Auto) 80.4 % (16.0-70.0); Platelet Count 180 th/mm3 (150-450); Red Blood Count 4.44 mil/mm3 (4.50-5.90); Red Cell Distribution Width 13.4 % (11.6-17.2)
[2018-01-05 15:18] LABS: Alanine Aminotransferase 48 U/L (12-78); Albumin 3.3 g/dL (3.4-5.0); Alkaline Phosphatase 56 U/L (45-117); Anion Gap 7 meq/L (5-15); Aspartate Aminotransferase 41 U/L (15-37); Blood Urea Nitrogen 20 mg/dL (7-18); Carbon Dioxide 26.6 meq/L (21.0-32.0); Chloride 111 meq/L (98-107); Glomerular Filtration Rate 73 mL/min (>89); Glucose,Random 108 mg/dL (74-106); Magnesium 1.5 mg/dL (1.5-2.5); Potassium 3.9 meq/L (3.5-5.1); Sodium 145 meq/L (136-145); Total Protein 6.3 g/dL (6.4-8.2)
[2018-01-06] MEDS: Propofol 1000 mg/100 ml Inj 1,000 MG/100 ML BOTTLE IV.CONT PRN ×5 (00:50→22:34)
[2018-01-06] MEDS: Insulin NovoLOG Aspart Correctional Sugar Inj SQ SCH ×4 (01:10→17:47)
[2018-01-06] MEDS: Oral Hygiene Kit OROPHARYNG SCH ×4 (01:11→16:18)
[2018-01-06] MEDS: KCL 20 mEq/D5W/NaCl 0.45% Inj 1,000 ML IV.CONT SCH ×4 (01:58→23:02)
--- NOTE | 2018-01-06 03:47 | XR ---
EXAM DATE: 01/06/2018 3:44 AM EST AGE/SEX: 37 years / Male INDICATIONS: Respiratory disease. CLINICAL DATA: This is the patient's subsequent encounter. Patient reports that signs and symptoms h ave been present for 2 days and indicates a pain score of Nonresponsive. MEDICAL/SURGICAL HISTORY: . Respiratory failure. S/P heroin overdose. Non-responsive. COMPARISON: [facility], CHEST 1V SINGLE AP, 01/05/2018. . FINDINGS: Single AP view of the chest. Endotracheal tube and nasogastric tube remain in place. Bilateral lower lung zone opacity right greater than left with slight decrease on the right and no significant change of the left. No evidence of pleural effusion or pneumothorax. Cardiomediastinal silhouette unchanged . Persistent elevation of the right hemidiaphragm. CONCLUSION: Persistent elevation of the right hemidiaphragm. Persistent bilateral lower lung zone parenchymal opa city. Slight increase in right lower lung aeration when compared to the prior study. Electronically signed by: Joseph Locke MD 01/06/2018 3:46 AM EST
[2018-01-06] MEDS ORDERED: Chlorhexidine Gluconate 2% 1 Pack (2 Cloths) TOPICAL PRN (04:00)
[2018-01-06 04:09] LABS: Baso % (Auto) 0.4 % (0.0-2.0); Eos # (Auto) 0.1 th/mm3 (0.0-0.4); Eos % (Auto) 0.8 % (0.0-4.0); Hematocrit 39.8 % (39.0-51.0); Hemoglobin 13.7 gm/dL (13.0-17.0); Lymph # (Auto) 1.4 th/mm3 (1.0-4.8); Lymph % (Auto) 13.5 % (9.0-44.0); Mean Corpuscular HGB Conc 34.5 % (32.0-36.0); Mean Corpuscular Hemoglobin 33.6 pg (27.0-34.0); Mean Corpuscular Volume 97.2 fL (80.0-100.0); Mono # (Auto) 0.8 th/mm3 (0.0-0.9); Mono % (Auto) 7.9 % (0.0-8.0); Neut # (Auto) 8.1 th/mm3 (1.8-7.7); Neut % (Auto) 77.4 % (16.0-70.0); Platelet Count 158 th/mm3 (150-450); Red Cell Distribution Width 13.4 % (11.6-17.2); White Blood Count 10.5 th/mm3 (4.0-11.0)
[2018-01-06 04:28] LABS: Alanine Aminotransferase 39 U/L (12-78); Albumin 2.9 g/dL (3.4-5.0); Anion Gap 6 meq/L (5-15); Aspartate Aminotransferase 38 U/L (15-37); Blood Urea Nitrogen 27 mg/dL (7-18); Calcium 7.7 mg/dL (8.5-10.1); Carbon Dioxide 26.8 meq/L (21.0-32.0); Chloride 108 meq/L (98-107); Glomerular Filtration Rate 67 mL/min (>89); Glucose,Random 136 mg/dL (74-106); Potassium 4.6 meq/L (3.5-5.1); Sodium 141 meq/L (136-145)
[2018-01-06 04:30] LABS: Alkaline Phosphatase 50 U/L (45-117)
[2018-01-06] MEDS: Chlorhexidine Gluconate 2% 1 Pack (2 Cloths) TOPICAL SCH (04:46)
[2018-01-06] MEDS: Ampicillin/Sulbactam Inj 3 GM in Sodium Chloride 0.9% Inj 100 ML IV.SIG SCH ×4 (04:46→23:06)
[2018-01-06] MEDS: Thiamine Inj 100 MG in Sodium Chlor 0.9% Inj 100 ML IV.SIG SCH (05:38)
[2018-01-06] MEDS: Senna/Docusate Sodium 8.6/50 MG Tablet PO SCH ×2 (08:25→23:06)
[2018-01-06] MEDS: Famotidine PF Inj 20 MG/2 ML Vial IV.PUSH SCH ×2 (08:25→23:02)
[2018-01-06] MEDS: Chlorhexidine 0.12% Oral Kit 15 ML UDC OROPHARYNG SCH ×2 (08:25→22:33)
--- NOTE | 2018-01-06 08:58 | P.PNCC ---
Subjective Subjective Remarks/Hospital Course: 37-year-old male who is brought to [facility] emergency department after friends contacted [facility] due to decreased mental status with suspected heroin overdose. He had used heroin earlier in the evening. [facility] reportedly found him laying in emesis with a thready pulse. They gave him sequential doses of Narcan to a total of 2.4 mg IV at which point he became more awake and alert. He then had multiple episodes of vomiting in route. NG tube was placed by the paramedics and they aspirated gastric contents and then removed s NG prior to arrival. His room air sats were reportedly 84% and he was placed on NR. Patient told Dr. Lovett that this was his first time using heroin and that he injected it. CXR demonstrated RLL opacity. He was started on Unasyn for aspiration pneumonia and given nebs. He eventually was intubated due to hypoxia with sats in high 80s despite nonrebreather. [employer] consulted for admission. 01/06: Remains sedated and intubated, requires PEEP 12 and FiO2 70%, will try to wean these today if tolerated. Objective Vital Signs / I&O: Vital Signs 01/05/18 09:00 01/05/18 09:30 01/05/18 10:00 Temperature Pulse Rate 109 H 108 H 104 H Respiratory Rate 16 16 20 Blood Pressure 114/69 101/59 L Pulse Oximetry 92 L 91 L 95 01/05/18 10:30 01/05/18 11:00 01/05/18 11:29 Temperature Pulse Rate 104 H 103 H Respiratory Rate 20 20 20 Blood Pressure 104/60 Pulse Oximetry 95 96 96 01/05/18 11:30 01/05/18 12:00 01/05/18 12:30 Temperature 100.3 F H Pulse Rate 103 H 103 H 103 H Respiratory Rate 20 20 20 Blood Pressure 101/58 L Pulse Oximetry 96 96 96 01/05/18 13:00 01/05/18 13:30 01/05/18 14:00 Temperature Pulse Rate 103 H 103 H 103 H Respiratory Rate 20 20 20 Blood Pressure 94/59 L 98/54 L Pulse Oximetry 95 95 96 01/05/18 14:30 01/05/18 15:00 01/05/18 15:30 Temperature Pulse Rate 103 H 101 H 101 H Respiratory Rate 20 20 20 Blood Pressure 92/53 L 90/58 L Pulse Oximetry 94 L 95 94 L 01/05/18 15:35 01/05/18 15:53 01/05/18 16:00 Temperature 100.3 F H Pulse Rate 100 H 102 H 101 H Respiratory Rate 20 20 20 Blood Pressure 89/56 L 101/57 L 95/54 L Pulse Oximetry 94 L 93 L 94 L 01/05/18 16:28 01/05/18 16:30 01/05/18 16:31 Temperature Pulse Rate 101 H 104 H Respiratory Rate 20 20 24 Blood Pressure 110/58 L Pulse Oximetry 95 95 01/05/18 17:00 01/05/18 17:30 01/05/18 18:00 Temperature Pulse Rate 107 H 109 H 109 H Respiratory Rate 20 20 20 Blood Pressure 103/56 L 101/59 L 106/63 Pulse Oximetry 95 92 L 91 L 01/05/18 19:00 01/05/18 19:30 01/05/18 19:55 Temperature 100.4 F H Pulse Rate 110 H 107 H 105 H Respiratory Rate 19 20 20 Blood Pressure 114/63 102/57 L Pulse Oximetry 94 L 93 L 95 01/05/18 20:00 01/05/18 20:30 01/05/18 21:00 Temperature Pulse Rate 105 H 113 H 110 H Respiratory Rate 20 19 20 Blood Pressure 117/58 L 100/56 L 103/59 L Pulse Oximetry 95 91 L 94 L 01/05/18 21:30 01/05/18 22:00 01/05/18 22:30 Temperature Pulse Rate 109 H 106 H 103 H Respiratory Rate 20 19 20 Blood Pressure 107/55 L 103/57 L 101/57 L Pulse Oximetry 94 L 95 95 01/05/18 23:00 01/05/18 23:30 01/06/18 00:00 Temperature 100 F H Pulse Rate 105 H 105 H 104 H Respiratory Rate 20 20 20 Blood Pressure 108/55 L 99/57 L 113/56 L Pulse Oximetry 93 L 95 94 L 01/06/18 00:18 01/06/18 00:30 01/06/18 01:00 Temperature Pulse Rate 100 H 100 H Respiratory Rate 20 20 20 Blood Pressure 95/54 L 93/53 L Pulse Oximetry 97 96 01/06/18 01:08 01/06/18 01:30 01/06/18 02:00 Temperature Pulse Rate 99 H 99 H Respiratory Rate 20 20 20 Blood Pressure 98/56 L 93/52 L Pulse Oximetry 96 99 98 01/06/18 02:30 01/06/18 03:00 01/06/18 03:30 Temperature Pulse Rate 98 H 97 H 96 H Respiratory Rate 20 20 20 Blood Pressure 94/55 L 96/54 L 106/62 Pulse Oximetry 98 98 98 01/06/18 03:35 01/06/18 04:00 01/06/18 04:15 Temperature 100 F H Pulse Rate 96 H 102 H Respiratory Rate 20 20 20 Blood Pressure 104/59 L Pulse Oximetry 99 99 01/06/18 04:30 01/06/18 05:00 01/06/18 05:30 Temperature Pulse Rate 98 H 94 H 93 H Respiratory Rate 20 20 20 Blood Pressure 103/59 L 100/58 L Pulse Oximetry 98 99 99 01/06/18 06:00 Temperature Pulse Rate 90 Respiratory Rate 20 Blood Pressure 101/59 L Pulse Oximetry 99 Intake & Output 01/05/18 01/06/18 01/06/18 18:59 06:59 18:59 Intake Total 2591 / 2591 1650 / 1650 Output Total 1080 / 1080 470 / 470 Balance 1511 / 1511 1180 / 1180 Weight 83.1 kg Intake: IV 2591 / 2591 1650 / 1650 D5W/1/2NS + KCL 20 mEq Inj 1, 950 / 950 1000 / 1000 000 ML @ 100 mls/hr IV.CONT . Q10H VU Rx#:[id number] Diprivan 1000 mg/100 ml Inj 1, 340 / 340 200 / 200 000 mg In 100 ml @ 5 MCG/KG/MIN 2.585 mls/hr IV.CONT TITRATE PRN Rx#:[id number] Unasyn Inj 3 GM In NS Inj 100 200 / 200 200 / 200 ML @ 200 mls/hr IV.SIG Q6H VU Rx#:[id number] NS Inj 1,000 ML @ 1000 mls/hr 1000 / 1000 IV.SIG BOLUS VU Rx#:[id number] Thiamine Inj 100 MG In NS Inj 101 / 101 100 ML @ 100 mls/hr IV.SIG DAILY@0600 VU Rx#:[id number] fentaNYL 10 mcg/mL Premix Drip 250 / 250 2,500 mcg In 250 ml @ 50 MCG/HR 5 mls/hr IV.SIG TITRATE PRN Rx #:[id number] Output: Urine Amount (Catheter) 1050 / 1050 400 / 400 Indwelling Urethral Catheter 1050 / 1050 400 / 400 Gastric Drainage 30 / 30 70 / 70 Orogastric Tube 70 / 70 Result Diagrams: 01/06/18 03:58 01/06/18 03:58 Objective Remarks: GEN: Intubated and sedated, no acute distress HEENT: NCAT, pupils pinpoint NECK: Trachea midline CARDIO: Regular rate and rhythm PULM: Diminished at bases bilaterally, slight rhonchi, no wheezing ABD/GI: Soft, non-distended EXT/MSK: No peripheral edema SKIN: No rashes or lesions NEURO: GCS 5T (E1VTM4), RASS -2 PSYCH: Unable to assess Assessment and Plan - Assessment and Plan Plan: NEURO: Heroin overdose Polysubstance abuse (marijuana, opiate, cocaine) Alcohol level was 61 on admission. Propofol and fentanyl for sedation, sedation vacation today Thiamine/multivitamin supplementation CTH negative RESP: Acute hypoxemic respiratory failure Acute aspiration pneumonia Intubated in ED 01/05 due to hypoxia. PRVC with ventilator bundle. Daily sedation vacation and spontaneous breathing trial starting today DuoNeb every 6 hours. Albuterol every 2 hours as needed. CXR shows RLL opacity, likely aspiration pneumonia (see below) CV: Telemetry and BP monitoring in ICU LR @ maintenance GI: Vomiting - likely secondary to opioid withdrawal Start TFs today Zofran prn . FEN/RENAL: TORREY - suspect pre-renal secondary to overdose and sepsis, improving CPK is normal Urine output adequate ID: Severe Sepsis secondary to aspiration pneumonia Continue Unasyn for aspiration MRSA swab negative Blood and sputum cultures pending Tmax 100.4F overnight HEME: No acute hematologic issues. Coags are normal. ENDO: Acute hyperglycemia Monitor bedside glucose every 6 hours and administer low-dose insulin sliding scale as indicated. PROPH: -PPI -SCDs/ lovenox ACCESS: Peripheral IV in left EJ OVERALL: This patient remains critically ill requiring ventilator support for aspiration pneumonia/ pneumonitis and drug overdose. He requires continued ICU level of care. Level 2 follow up To help prompt me to consider important information that might be impacting today's encounter and assessment, information from prior notes written by myself or my colleagues may have been "brought forward" into today's note. My signature on this note, however, is an attestation that I personally performed the exam, history, and/or decision-making noted today, and, unless otherwise indicated, the interactions with patient, family, and staff as well as the review of records all occurred today. I also attest that the listed assessment and stated plan reflect my best clinical judgment today based on the combination of historical information, prior notes, and today's exam/ interactions. Code Status: Full
[2018-01-06] MEDS ORDERED: Sodium Phosphate Inj 30 MMOL in Sodium Chlor 0.9% Inj 250 ML IV.SIG PRN (08:59)
[2018-01-06] MEDS ORDERED: Magnesium Sulfate Inj 4 GM in Sodium Chlor 0.9% Inj 92 ML IV.SIG PRN (08:59)
[2018-01-06] MEDS ORDERED: Magnesium Oxide 400 MG Tablet PO PRN (08:59)
[2018-01-06] MEDS ORDERED: Magnesium Sulfate Inj 2 GM in Sodium Chlor 0.9% Inj 96 ML IV.SIG PRN (08:59)
[2018-01-06] MEDS ORDERED: Potassium Phosphate 500 MG Soluble Tablet PO PRN ×2 (08:59)
[2018-01-06] MEDS ORDERED: Potassium Phosphate Inj 30 MMOL in Sodium Chlor 0.9% Inj 250 ML IV.SIG PRN (08:59)
[2018-01-06] MEDS ORDERED: Vancomycin Consult Pharmacy OTHER PRN (09:12)
[2018-01-06] MEDS ORDERED: Vancomycin Inj 1,500 MG in Sodium Chlor 0.9% Inj 500 ML IV.SIG ONE (10:00)
[2018-01-06] MEDS ORDERED: Vancomycin Inj 1,000 MG in Sodium Chlor 0.9% Inj 250 ML IV.SIG SCH (10:00)
[2018-01-06] MEDS: Enoxaparin Inj 40 MG/0.4 ML Syringe SQ SCH (11:05)
[2018-01-06] MEDS: Beneprotein Powder Packet G-TUBE SCH ×2 (12:54→17:47)
--- NOTE | 2018-01-06 13:33 | P.DIET ---
Nutritional Evaluation Type of nutrition evaluation: initial Nutrition consult regarding: Tube Feeding Objective - Diagnosis Respiratory Failure s/p heroin overdose - Objective % IBW: 103 (IBW = 178#) Energy Needs - Lower Range (kCal/kg): 28 Energy Needs - Upper Range (kCal/kg): 32 Lower Limit kCal/kg (kCals): 2,327 Upper Limit kCal/kg (kCals): 2,659 Lower Limit Protein Factor (Grams per Kg): 1.2 Upper Limit Protein Factor (Grams per Kg): 1.6 Lower Protein Needs (Protein): 100 Upper Protein Needs (Protein): 133 Dietitian Reviewed in Medical Record: Curent medications, Intake & Output, Labs , Medical history, Tube feeding Feeding - Current Tube Feeding Diprivan Rate: 18 (mls/hr) Lipid kCals From Diprivan: 475 Assessment Assessment: Pt is at high nutrition risk 2' to the need for TFing. Current order is for Jevity 1.5 @ 45 mls/hr goal with Beneprotein 2 packs tid. Recommend increase TF rate to 65 mls/hr to provide 2340 kcals, 100 gms protein and 1186 mls of free water. Beneprotein as ordered will provide 36 additional grams of protein. Some additional kcals will also come from propofol (1.1 kcal/ml) when running. Recommendations: Jevity 1.5 @ 65 mls/hr goal Beneprotein as ordered Dietitian to Monitor: Lab values, Tube feeding tolerance, Weight change, Medical course
[2018-01-06] MEDS: fentaNYL 10 mcg/mL Premix Drip 2,500 MCG/250 ML BAG IV.SIG PRN (15:32)
[2018-01-06] MEDS: Vancomycin Inj 1,500 MG in Sodium Chlor 0.9% Inj 500 ML IV.SIG SCH (23:55)
[2018-01-07] MEDS: Propofol 1000 mg/100 ml Inj 1,000 MG/100 ML BOTTLE IV.CONT PRN ×6 (02:08→23:55)
[2018-01-07] MEDS: Oral Hygiene Kit OROPHARYNG SCH ×5 (02:08→23:56)
[2018-01-07] MEDS: fentaNYL 10 mcg/mL Premix Drip 2,500 MCG/250 ML BAG IV.SIG PRN ×3 (02:09→22:05)
[2018-01-07] MEDS: Ampicillin/Sulbactam Inj 3 GM in Sodium Chloride 0.9% Inj 100 ML IV.SIG SCH ×4 (03:55→21:10)
[2018-01-07 04:37] LABS: Baso % (Auto) 0.3 % (0.0-2.0); Eos # (Auto) 0.2 th/mm3 (0.0-0.4); Eos % (Auto) 1.8 % (0.0-4.0); Hematocrit 37.4 % (39.0-51.0); Hemoglobin 12.9 gm/dL (13.0-17.0); Lymph # (Auto) 1.1 th/mm3 (1.0-4.8); Lymph % (Auto) 11.3 % (9.0-44.0); Mean Corpuscular HGB Conc 34.4 % (32.0-36.0); Mean Corpuscular Hemoglobin 34.3 pg (27.0-34.0); Mean Corpuscular Volume 99.9 fL (80.0-100.0); Mono # (Auto) 0.8 th/mm3 (0.0-0.9); Mono % (Auto) 8.2 % (0.0-8.0); Neut # (Auto) 7.6 th/mm3 (1.8-7.7); Neut % (Auto) 78.4 % (16.0-70.0); Platelet Count 126 th/mm3 (150-450); Red Blood Count 3.75 mil/mm3 (4.50-5.90); Red Cell Distribution Width 13.5 % (11.6-17.2); White Blood Count 9.7 th/mm3 (4.0-11.0)
[2018-01-07 04:55] LABS: Alanine Aminotransferase 31 U/L (12-78); Albumin 2.7 g/dL (3.4-5.0); Alkaline Phosphatase 53 U/L (45-117); Anion Gap 7 meq/L (5-15); Aspartate Aminotransferase 28 U/L (15-37); Blood Urea Nitrogen 14 mg/dL (7-18); Calcium 8.3 mg/dL (8.5-10.1); Carbon Dioxide 24.2 meq/L (21.0-32.0); Chloride 106 meq/L (98-107); Glomerular Filtration Rate Greater Than 89 mL/min (>89); Glucose,Random 110 mg/dL (74-106); Magnesium 1.6 mg/dL (1.5-2.5); Potassium 4.1 meq/L (3.5-5.1); Sodium 137 meq/L (136-145); Total Protein 6.1 g/dL (6.4-8.2)
[2018-01-07] MEDS: Chlorhexidine Gluconate 2% 1 Pack (2 Cloths) TOPICAL SCH (05:46)
[2018-01-07] MEDS: Insulin NovoLOG Aspart Correctional Sugar Inj SQ SCH ×4 (05:47→17:25)
[2018-01-07] MEDS: Thiamine Inj 100 MG in Sodium Chlor 0.9% Inj 100 ML IV.SIG SCH (06:00)
[2018-01-07] MEDS: Senna/Docusate Sodium 8.6/50 MG Tablet PO SCH ×2 (08:55→21:09)
[2018-01-07] MEDS: Enoxaparin Inj 40 MG/0.4 ML Syringe SQ SCH (08:55)
[2018-01-07] MEDS: Beneprotein Powder Packet G-TUBE SCH ×3 (08:56→17:21)
[2018-01-07] MEDS: Famotidine PF Inj 20 MG/2 ML Vial IV.PUSH SCH ×2 (08:56→21:09)
[2018-01-07] MEDS: Chlorhexidine 0.12% Oral Kit 15 ML UDC OROPHARYNG SCH ×2 (08:56→21:09)
[2018-01-07] MEDS: Vancomycin Inj 1,500 MG in Sodium Chlor 0.9% Inj 500 ML IV.SIG SCH (10:20)
--- NOTE | 2018-01-07 14:06 | P.PNCC ---
Subjective Subjective Remarks/Hospital Course: 37-year-old male who is brought to [facility] emergency department after friends contacted [facility] due to decreased mental status with suspected heroin overdose. He had used heroin earlier in the evening. [facility] reportedly found him laying in emesis with a thready pulse. They gave him sequential doses of Narcan to a total of 2.4 mg IV at which point he became more awake and alert. He then had multiple episodes of vomiting in route. NG tube was placed by the paramedics and they aspirated gastric contents and then removed s NG prior to arrival. His room air sats were reportedly 84% and he was placed on NR. Patient told Dr. Lovett that this was his first time using heroin and that he injected it. CXR demonstrated RLL opacity. He was started on Unasyn for aspiration pneumonia and given nebs. He eventually was intubated due to hypoxia with sats in high 80s despite nonrebreather. [employer] consulted for admission. 01/06: Remains sedated and intubated, requires PEEP 12 and FiO2 70%, will try to wean these today if tolerated. 01/07: Agitated overnight and this morning, 2 episodes where the patient bit down on ETT, desaturated, and became unstable. Not tolerating pressure support trials. Objective Vital Signs / I&O: Vital Signs 01/06/18 14:30 01/06/18 15:00 01/06/18 15:30 Temperature Pulse Rate 88 90 90 Respiratory Rate 20 20 20 Blood Pressure 106/59 L 103/59 L 106/59 L Pulse Oximetry 98 97 96 01/06/18 16:00 01/06/18 16:30 01/06/18 17:00 Temperature 100 F H Pulse Rate 92 H 89 88 Respiratory Rate 20 20 20 Blood Pressure 110/61 110/61 110/61 Pulse Oximetry 96 95 96 01/06/18 17:30 01/06/18 17:47 01/06/18 18:00 Temperature 99.8 F H Pulse Rate 90 88 92 H Respiratory Rate 20 20 Blood Pressure 106/56 L 108/58 L Pulse Oximetry 97 97 01/06/18 20:00 01/06/18 21:20 01/06/18 21:24 Temperature Pulse Rate 89 Respiratory Rate 20 20 19 Blood Pressure Pulse Oximetry 95 01/06/18 23:26 01/06/18 23:30 01/06/18 23:31 Temperature Pulse Rate 96 H 95 H 96 H Respiratory Rate 20 20 20 Blood Pressure 114/58 L 120/60 Pulse Oximetry 100 100 99 01/06/18 23:36 01/06/18 23:41 01/06/18 23:46 Temperature Pulse Rate 94 H 94 H 94 H Respiratory Rate 20 20 20 Blood Pressure 120/61 122/62 122/62 Pulse Oximetry 100 99 99 01/06/18 23:51 01/06/18 23:56 01/07/18 00:00 Temperature Pulse Rate 92 H 91 H 91 H Respiratory Rate 20 20 20 Blood Pressure 124/60 126/61 Pulse Oximetry 99 100 99 01/07/18 00:01 01/07/18 00:06 01/07/18 00:11 Temperature Pulse Rate 91 H 90 90 Respiratory Rate 20 20 20 Blood Pressure 122/61 125/61 123/61 Pulse Oximetry 99 99 99 01/07/18 00:16 01/07/18 00:21 01/07/18 00:26 Temperature Pulse Rate 90 86 88 Respiratory Rate 20 20 20 Blood Pressure 118/57 L 116/56 L 126/61 Pulse Oximetry 99 99 98 01/07/18 00:30 01/07/18 00:31 01/07/18 00:36 Temperature Pulse Rate 89 88 85 Respiratory Rate 20 20 20 Blood Pressure 117/59 L 119/59 L Pulse Oximetry 98 98 98 01/07/18 00:41 01/07/18 00:46 01/07/18 00:51 Temperature Pulse Rate 83 83 82 Respiratory Rate 20 20 20 Blood Pressure 121/60 121/61 125/64 Pulse Oximetry 99 99 99 01/07/18 00:56 01/07/18 01:00 01/07/18 01:01 Temperature Pulse Rate 84 81 81 Respiratory Rate 20 20 20 Blood Pressure 123/64 125/64 Pulse Oximetry 98 98 99 01/07/18 01:06 01/07/18 01:11 01/07/18 01:16 Temperature Pulse Rate 80 81 79 Respiratory Rate 20 20 20 Blood Pressure 126/68 128/67 127/70 Pulse Oximetry 98 99 99 01/07/18 01:21 01/07/18 01:26 01/07/18 01:30 Temperature Pulse Rate 81 81 79 Respiratory Rate 20 20 20 Blood Pressure 123/66 124/66 Pulse Oximetry 98 98 98 01/07/18 01:31 01/07/18 01:36 01/07/18 01:41 Temperature Pulse Rate 79 78 78 Respiratory Rate 20 20 20 Blood Pressure 120/66 117/66 119/66 Pulse Oximetry 98 98 99 01/07/18 01:46 01/07/18 01:51 01/07/18 01:56 Temperature Pulse Rate 87 80 77 Respiratory Rate 15 20 20 Blood Pressure 123/70 120/68 125/68 Pulse Oximetry 99 97 98 01/07/18 02:00 01/07/18 02:01 01/07/18 02:06 Temperature Pulse Rate 77 79 75 Respiratory Rate 20 20 20 Blood Pressure 127/70 128/73 Pulse Oximetry 99 99 100 01/07/18 02:11 01/07/18 02:16 01/07/18 02:21 Temperature Pulse Rate 73 75 77 Respiratory Rate 20 20 20 Blood Pressure 129/75 124/74 120/73 Pulse Oximetry 99 99 99 01/07/18 02:26 01/07/18 02:30 01/07/18 02:31 Temperature Pulse Rate 78 78 76 Respiratory Rate 20 20 20 Blood Pressure 121/73 125/73 Pulse Oximetry 99 99 99 01/07/18 02:36 01/07/18 02:41 01/07/18 02:46 Temperature Pulse Rate 75 75 74 Respiratory Rate 20 20 20 Blood Pressure 130/74 127/73 122/75 Pulse Oximetry 99 100 100 01/07/18 02:51 01/07/18 02:56 01/07/18 03:00 Temperature Pulse Rate 75 74 75 Respiratory Rate 20 20 20 Blood Pressure 125/75 128/74 Pulse Oximetry 100 99 100 01/07/18 03:01 01/07/18 03:06 01/07/18 03:11 Temperature Pulse Rate 75 75 75 Respiratory Rate 20 20 20 Blood Pressure 123/73 128/79 123/77 Pulse Oximetry 99 99 99 01/07/18 03:30 01/07/18 04:00 01/07/18 04:02 Temperature 98.7 F Pulse Rate 76 74 74 Respiratory Rate 20 20 20 Blood Pressure 125/74 Pulse Oximetry 99 100 100 01/07/18 04:09 01/07/18 04:30 01/07/18 05:00 Temperature Pulse Rate 74 78 76 Respiratory Rate 20 20 20 Blood Pressure Pulse Oximetry 98 99 99 01/07/18 05:02 01/07/18 05:30 01/07/18 06:00 Temperature Pulse Rate 77 77 76 Respiratory Rate 20 20 20 Blood Pressure 115/65 Pulse Oximetry 99 99 99 01/07/18 06:02 01/07/18 06:30 01/07/18 07:00 Temperature 98.8 F Pulse Rate 74 78 74 Respiratory Rate 20 20 20 Blood Pressure 119/67 117/67 Pulse Oximetry 99 99 99 01/07/18 07:02 01/07/18 07:30 01/07/18 08:00 Temperature 98.8 F Pulse Rate 74 74 75 Respiratory Rate 20 20 20 Blood Pressure 117/67 117/67 Pulse Oximetry 99 99 98 01/07/18 08:02 01/07/18 08:30 01/07/18 09:00 Temperature 98.8 F Pulse Rate 72 71 70 Respiratory Rate 20 20 20 Blood Pressure 117/67 116/64 Pulse Oximetry 98 100 100 01/07/18 09:02 01/07/18 09:30 01/07/18 10:00 Temperature Pulse Rate 72 72 73 Respiratory Rate 20 20 20 Blood Pressure 116/64 106/64 Pulse Oximetry 99 99 100 01/07/18 10:02 01/07/18 10:08 01/07/18 10:30 Temperature Pulse Rate 74 77 77 Respiratory Rate 20 20 20 Blood Pressure 106/64 Pulse Oximetry 98 99 98 01/07/18 11:00 01/07/18 11:02 01/07/18 11:30 Temperature Pulse Rate 79 77 74 Respiratory Rate 20 20 20 Blood Pressure 117/65 117/65 Pulse Oximetry 95 94 L 99 01/07/18 11:52 01/07/18 12:00 01/07/18 12:02 Temperature 98.4 F Pulse Rate 92 H 85 84 Respiratory Rate 24 21 20 Blood Pressure 129/71 129/71 127/70 Pulse Oximetry 97 97 98 01/07/18 12:30 01/07/18 13:27 Temperature Pulse Rate 78 Respiratory Rate 20 20 Blood Pressure Pulse Oximetry 99 Intake & Output 01/06/18 01/07/18 01/07/18 18:59 06:59 18:59 Intake Total 1650 / 1650 2558 / 2558 551 / 551 Output Total 680 / 680 1280 / 1280 Balance 970 / 970 1278 / 1278 551 / 551 Weight 83.1 kg 86.7 kg Intake: IV 1650 / 1650 1265 / 1265 551 / 551 D5W/1/2NS + KCL 20 mEq Inj 1, 1000 / 1000 000 ML @ 100 mls/hr IV.CONT . Q10H VU Rx#:[id number] Diprivan 1000 mg/100 ml Inj 1, 200 / 200 300 / 300 100 / 100 000 mg In 100 ml @ 5 MCG/KG/MIN 2.585 mls/hr IV.CONT TITRATE PRN Rx#:[id number] Unasyn Inj 3 GM In NS Inj 100 200 / 200 200 / 200 100 / 100 ML @ 200 mls/hr IV.SIG Q6H VU Rx#:[id number] Thiamine Inj 100 MG In NS Inj 101 / 101 100 ML @ 100 mls/hr IV.SIG DAILY@0600 VU Rx#:[id number] Vancomycin Inj 1,500 MG In NS 515 / 515 Inj 500 ML @ 250 mls/hr IV.SIG Q12H VU Rx#:[id number] fentaNYL 10 mcg/mL Premix Drip 250 / 250 250 / 250 250 / 250 2,500 mcg In 250 ml @ 50 MCG/HR 5 mls/hr IV.SIG TITRATE PRN Rx #:[id number] Tube Feeding 243 / 243 Tube Irrigant 1050 / 1050 Output: Urine Amount (Catheter) 600 / 600 1200 / 1200 Indwelling Urethral Catheter 600 / 600 1200 / 1200 Gastric Drainage 80 / 80 80 / 80 Orogastric Tube 80 / 80 80 / 80 Other: Weight On Admission 83.1 kg Result Diagrams: 01/07/18 04:22 01/07/18 04:22 Objective Remarks: GEN: Intubated and sedated, no current agitation HEENT: NCAT, pupils pinpoint NECK: Trachea midline CARDIO: Regular rate and rhythm PULM: Mechanical breath sounds bilaterally ABD/GI: Soft, non-distended EXT/MSK: No peripheral edema SKIN: No rashes or lesions NEURO: GCS 9T (E3VTM5), RASS 0 to -1 PSYCH: Unable to assess Assessment and Plan - Assessment and Plan Plan: NEURO: Heroin overdose Polysubstance abuse (marijuana, opiate, cocaine) Alcohol level was 61 on admission. Propofol and fentanyl for sedation-- will add PRN ativan and precedex gtt as patient becomes extremely agitated with even slight drop in sedation Thiamine/multivitamin supplementation CTH negative RESP: Acute hypoxemic respiratory failure Acute aspiration pneumonia Intubated in ED 01/05 due to hypoxia. PRVC with ventilator bundle, would like to continue spontaneous breathing trials when sedation regimen is changed DuoNeb every 6 hours. Albuterol every 2 hours as needed. CXR shows RLL opacity, likely aspiration pneumonia (see below) CV: Telemetry and BP monitoring in ICU GI: Vomiting - likely secondary to opioid withdrawal Continue TFs at goal Zofran prn. FEN/RENAL: TORREY - suspect pre-renal secondary to overdose and sepsis, improving CPK is normal Urine output adequate D/C maintenance fluids ID: Severe Sepsis secondary to aspiration pneumonia Continue Unasyn for aspiration for total of 1 week MRSA swab negative Blood cultures from 01/05 growing staph epidermidis in both bottles, repeat cultures sent 01/06 no growth at 1 day * Start on vancomycin yesterday when prelim results showed staph, now identified as not MRSA, d/c Afebrile overnight HEME: No acute hematologic issues. Coags are normal. ENDO: Acute hyperglycemia Monitor bedside glucose every 6 hours and administer low-dose insulin sliding scale as indicated. PROPH: -PPI -SCDs/ lovenox ACCESS: Peripheral IV in left EJ OVERALL: This patient remains critically ill requiring ventilator support for aspiration pneumonia/ pneumonitis and drug overdose. He requires continued ICU level of care. Level 2 follow up To help prompt me to consider important information that might be impacting today's encounter and assessment, information from prior notes written by myself or my colleagues may have been "brought forward" into today's note. My signature on this note, however, is an attestation that I personally performed the exam, history, and/or decision-making noted today, and, unless otherwise indicated, the interactions with patient, family, and staff as well as the review of records all occurred today. I also attest that the listed assessment and stated plan reflect my best clinical judgment today based on the combination of historical information, prior notes, and today's exam/ interactions. Code Status: Full
[2018-01-07] MEDS ORDERED: Dexmedetomidine Inj 200 MCG in Sodium Chlor 0.9% Inj 48 ML IV.CONT PRN (15:21)
--- NOTE | 2018-01-07 15:46 | XR ---
EXAM DATE: 01/07/2018 3:29 PM EST AGE/SEX: 37 years / Male INDICATIONS: Respiratory failure. CLINICAL DATA: This is the patient's subsequent encounter. Patient reports that signs and symptoms h ave been present for 4 - 6 days and indicates a pain score of Nonresponsive. MEDICAL/SURGICAL HISTORY: . Respiratory failure. S/P heroin overdose. Non-responsive. COMPARISON: [facility] [place], CHEST 1V SINGLE AP, 01/06/2018. . FINDINGS: Worsening consolidation with pleural fluid and probably a basilar pneumothorax seen on the right. Mild patchy consolidation of the left mid and lower lung only slightly worse in the interim. No left pneumothorax or large effusion seen. Endotracheal tube tip is at the level of the thoracic inlet. There is a nasogastric tube coiled in th e stomach. CONCLUSION: 1. Worsening consolidation and a suspected developing hydropneumothorax at the right base. 2. Modest worsening of parenchymal consolidation of the left mid and lower lung. Electronically signed by: Yo Gautam MD 01/07/2018 3:44 PM EST
[2018-01-07] MEDS ORDERED: RASS Change Order OTHER ONE (16:00)
[2018-01-07] MEDS ORDERED: HYDROmorphone PF Inj 2 MG/ML Vial IV.PUSH ONE (16:34)
[2018-01-07 17:00] LABS: ABG Base Excess -1.1 mmol/L (-2-2); ABG PCO2 82 mmHg (38-42); ABG PO2 92 mmHg (61-120)
[2018-01-07 20:24] LABS: ABG Base Excess 0.5 mmol/L (-2-2); ABG PCO2 36 mmHg (38-42); ABG PO2 130 mmHg (61-120)
[2018-01-07] MEDS ORDERED: Pharmacy Ordered Lab Info OTHER ONE (21:45)
[2018-01-08] MEDS: Insulin NovoLOG Aspart Correctional Sugar Inj SQ SCH ×4 (00:54→18:41)
[2018-01-08] MEDS: Chlorhexidine Gluconate 2% 1 Pack (2 Cloths) TOPICAL SCH (03:22)
[2018-01-08] MEDS: Ampicillin/Sulbactam Inj 3 GM in Sodium Chloride 0.9% Inj 100 ML IV.SIG SCH ×4 (03:22→21:45)
[2018-01-08] MEDS: Oral Hygiene Kit OROPHARYNG SCH ×3 (03:22→17:01)
[2018-01-08 03:59] LABS: Baso % (Auto) 0.4 % (0.0-2.0); Eos # (Auto) 0.2 th/mm3 (0.0-0.4); Eos % (Auto) 2.1 % (0.0-4.0); Hemoglobin 13.2 gm/dL (13.0-17.0); Lymph # (Auto) 0.9 th/mm3 (1.0-4.8); Mean Corpuscular HGB Conc 34.8 % (32.0-36.0); Mean Corpuscular Hemoglobin 33.9 pg (27.0-34.0); Mean Corpuscular Volume 97.3 fL (80.0-100.0); Mean Platelet Volume 9.8 fL (7.0-11.0); Mono # (Auto) 0.9 th/mm3 (0.0-0.9); Mono % (Auto) 9.8 % (0.0-8.0); Neut # (Auto) 7.3 th/mm3 (1.8-7.7); Neut % (Auto) 77.7 % (16.0-70.0); Platelet Count 151 th/mm3 (150-450); White Blood Count 9.4 th/mm3 (4.0-11.0)
[2018-01-08 04:20] LABS: Albumin 2.5 g/dL (3.4-5.0); Anion Gap 9 meq/L (5-15); Aspartate Aminotransferase 28 U/L (15-37); Blood Urea Nitrogen 9 mg/dL (7-18); Calcium 8.8 mg/dL (8.5-10.1); Carbon Dioxide 23.2 meq/L (21.0-32.0); Chloride 110 meq/L (98-107); Glomerular Filtration Rate Greater Than 89 mL/min (>89); Glucose,Random 86 mg/dL (74-106); Magnesium 1.9 mg/dL (1.5-2.5); Potassium 3.4 meq/L (3.5-5.1); Sodium 142 meq/L (136-145)
[2018-01-08 04:26] LABS: Alanine Aminotransferase 27 U/L (12-78); Alkaline Phosphatase 95 U/L (45-117); Total Protein 6.3 g/dL (6.4-8.2)
[2018-01-08] MEDS: Propofol 1000 mg/100 ml Inj 1,000 MG/100 ML BOTTLE IV.CONT PRN ×5 (06:23→22:55)
[2018-01-08] MEDS: fentaNYL 10 mcg/mL Premix Drip 2,500 MCG/250 ML BAG IV.SIG PRN ×2 (07:49→18:45)
[2018-01-08 09:23] LABS: ABG Base Excess -0.6 mmol/L (-2-2); ABG PCO2 37 mmHg (38-42); ABG PO2 100 mmHg (61-120)
[2018-01-08] MEDS: Enoxaparin Inj 40 MG/0.4 ML Syringe SQ SCH (10:54)
[2018-01-08] MEDS: Senna/Docusate Sodium 8.6/50 MG Tablet PO SCH ×2 (10:54→21:23)
[2018-01-08] MEDS: Famotidine PF Inj 20 MG/2 ML Vial IV.PUSH SCH ×2 (10:54→21:23)
[2018-01-08] MEDS: Chlorhexidine 0.12% Oral Kit 15 ML UDC OROPHARYNG SCH ×2 (10:55→21:24)
[2018-01-08] MEDS: Beneprotein Powder Packet G-TUBE SCH ×3 (10:56→18:41)
--- NOTE | 2018-01-08 12:14 | CT ---
EXAM DATE: 01/08/2018 12:03 PM EST AGE/SEX: 37 years / Male INDICATIONS: Pneumonia, worsening right lower lobe consolidation CLINICAL DATA: This is the patient's initial encounter. Patient reports that signs and symptoms have been present for 3 days and indicates a pain score of Nonresponsive. MEDICAL/SURGICAL HISTORY: . IV drug use None. RADIATION DOSE: 15.89 CTDI (mGy) ; Patient positioning COMPARISON: [facility] [place], [place] CHEST W/O CONTRAST, 01/05/2018. . TECHNIQUE: Multiple contiguous axial images were obtained through the chest without contrast. Image s were obtained in suspended respiration using multiple row detector helical technique. Using [employer] exposure control and adjustment of the mA and/or kV according to patient size, radiation dose was kept as low as reasonably achievable to obtain optimal diagnostic quality images. DICOM format imag e data is available electronically for review and comparison. FINDINGS: Lungs: Increasing patchy airspace disease is identified throughout both upper lobes. There is persis tent dense consolidating infiltrate in both lower lobes with air bronchograms. Endotracheal tube remains in good position. Mediastinum: There is good visualization of the great vessels of the middle mediastinum. No evidenc e of mediastinal or hilar adenopathy/mass. Pleurae: Increasing right pleural effusion is noted. Axillae: Unremarkable. Bony Structures: Unremarkable. Miscellaneous: The examination was extended to include the upper abdomen, and both adrenal glands ar e normal in size and configuration. CONCLUSION: 1. Increasing airspace disease especially in both upper lobes. 2. Persistent dense consolidation in the lower lobes without significant improvement. 3. Increasing right pleural effusion. Electronically signed by: Eugenio Houston MD 01/08/2018 12:13 PM EST
--- NOTE | 2018-01-08 14:59 | P.PNCC ---
Subjective Subjective Remarks/Hospital Course: 37-year-old male who is brought to [facility] emergency department after friends contacted [facility] due to decreased mental status with suspected heroin overdose. He had used heroin earlier in the evening. [facility] reportedly found him laying in emesis with a thready pulse. They gave him sequential doses of Narcan to a total of 2.4 mg IV at which point he became more awake and alert. He then had multiple episodes of vomiting in route. NG tube was placed by the paramedics and they aspirated gastric contents and then removed s NG prior to arrival. His room air sats were reportedly 84% and he was placed on NR. Patient told Dr. Lovett that this was his first time using heroin and that he injected it. CXR demonstrated RLL opacity. He was started on Unasyn for aspiration pneumonia and given nebs. He eventually was intubated due to hypoxia with sats in high 80s despite nonrebreather. [employer] consulted for admission. 01/06: Remains sedated and intubated, requires PEEP 12 and FiO2 70%, will try to wean these today if tolerated. 01/07: Agitated overnight and this morning, 2 episodes where the patient bit down on ETT, desaturated, and became unstable. Not tolerating pressure support trials. 01/08: Remains sedated, orally intubated on mechanical ventilation. PEEP remains at +12. CT chest done today shows worsening consolidations. Pleural effusion. Objective Vital Signs / I&O: Vital Signs 01/07/18 15:00 01/07/18 15:02 01/07/18 15:08 Temperature Pulse Rate 82 86 102 H Respiratory Rate 21 18 10 L Blood Pressure 125/58 L 153/81 H Pulse Oximetry 98 97 01/07/18 15:10 01/07/18 15:15 01/07/18 15:20 Temperature Pulse Rate 94 H 88 92 H Respiratory Rate 17 14 12 Blood Pressure 156/81 H 135/68 134/65 Pulse Oximetry 86 L 99 94 L 01/07/18 15:25 01/07/18 15:30 01/07/18 15:35 Temperature Pulse Rate 94 H 94 H 100 H Respiratory Rate 13 12 12 Blood Pressure 133/64 132/64 138/66 Pulse Oximetry 93 L 94 L 94 L 01/07/18 15:40 01/07/18 15:45 01/07/18 15:50 Temperature Pulse Rate 99 H 100 H 102 H Respiratory Rate 12 12 12 Blood Pressure 131/66 139/70 149/71 H Pulse Oximetry 92 L 92 L 90 L 01/07/18 15:55 01/07/18 16:00 01/07/18 16:04 Temperature Pulse Rate 104 H 108 H 109 H Respiratory Rate 12 15 12 Blood Pressure 138/70 149/73 H 140/73 Pulse Oximetry 94 L 91 L 94 L 01/07/18 16:05 01/07/18 16:10 01/07/18 16:15 Temperature Pulse Rate 109 H 109 H 107 H Respiratory Rate 15 12 12 Blood Pressure 147/75 H 139/70 149/73 H Pulse Oximetry 93 L 94 L 95 01/07/18 16:20 01/07/18 16:25 01/07/18 16:26 Temperature Pulse Rate 108 H 121 H 121 H Respiratory Rate 12 13 16 Blood Pressure 139/84 175/88 H 165/83 H Pulse Oximetry 91 L 92 L 93 L 01/07/18 16:30 01/07/18 16:35 01/07/18 16:40 Temperature Pulse Rate 125 H 120 H 114 H Respiratory Rate 21 12 12 Blood Pressure 178/84 H 159/71 H 160/73 H Pulse Oximetry 92 L 94 L 93 L 01/07/18 16:45 01/07/18 16:50 01/07/18 16:55 Temperature Pulse Rate 115 H 115 H 115 H Respiratory Rate 13 12 14 Blood Pressure 156/74 H 155/74 H 166/82 H Pulse Oximetry 89 L 92 L 92 L 01/07/18 17:00 01/07/18 17:05 01/07/18 17:10 Temperature 98.4 F Pulse Rate 116 H 116 H 114 H Respiratory Rate 16 20 16 Blood Pressure 152/78 H 160/74 H 164/77 H Pulse Oximetry 92 L 92 L 91 L 01/07/18 17:15 01/07/18 17:16 01/07/18 17:20 Temperature Pulse Rate 112 H 110 H Respiratory Rate 16 16 16 Blood Pressure 144/66 H 140/68 Pulse Oximetry 93 L 93 L 01/07/18 17:21 01/07/18 17:26 01/07/18 17:30 Temperature Pulse Rate 103 H 101 H 99 H Respiratory Rate 16 16 16 Blood Pressure 132/67 127/66 Pulse Oximetry 93 L 93 L 93 L 01/07/18 17:31 01/07/18 17:36 01/07/18 17:41 Temperature Pulse Rate 98 H 96 H 95 H Respiratory Rate 16 16 16 Blood Pressure 126/64 124/65 124/65 Pulse Oximetry 93 L 95 96 01/07/18 17:46 01/07/18 17:51 01/07/18 17:56 Temperature Pulse Rate 93 H 92 H 91 H Respiratory Rate 16 16 16 Blood Pressure 127/65 128/64 128/65 Pulse Oximetry 98 99 99 01/07/18 18:00 01/07/18 18:01 01/07/18 18:02 Temperature Pulse Rate 90 90 90 Respiratory Rate 16 16 16 Blood Pressure 128/66 Pulse Oximetry 99 99 99 01/07/18 18:06 01/07/18 20:09 01/07/18 22:06 Temperature Pulse Rate 90 77 74 Respiratory Rate 16 16 16 Blood Pressure 135/69 131/70 Pulse Oximetry 99 100 100 01/07/18 22:11 01/07/18 22:16 01/07/18 22:21 Temperature Pulse Rate 74 73 73 Respiratory Rate 16 16 16 Blood Pressure 132/71 131/73 131/73 Pulse Oximetry 99 99 99 01/07/18 22:26 01/07/18 22:31 01/07/18 22:36 Temperature Pulse Rate 73 73 72 Respiratory Rate 16 16 16 Blood Pressure 135/76 128/73 129/72 Pulse Oximetry 99 98 98 01/07/18 22:41 01/07/18 22:46 01/07/18 22:51 Temperature Pulse Rate 72 73 71 Respiratory Rate 16 16 16 Blood Pressure 130/73 134/71 132/73 Pulse Oximetry 99 100 100 01/07/18 22:56 01/07/18 23:00 01/07/18 23:01 Temperature Pulse Rate 71 71 71 Respiratory Rate 16 16 16 Blood Pressure 135/72 135/69 Pulse Oximetry 100 100 100 01/07/18 23:06 01/07/18 23:11 01/07/18 23:16 Temperature Pulse Rate 71 72 77 Respiratory Rate 16 16 20 Blood Pressure 135/71 129/71 122/65 Pulse Oximetry 100 100 100 01/07/18 23:21 01/07/18 23:26 01/07/18 23:31 Temperature Pulse Rate 77 68 72 Respiratory Rate 16 22 16 Blood Pressure 123/66 128/76 118/68 Pulse Oximetry 100 96 97 01/07/18 23:34 01/07/18 23:47 01/07/18 23:52 Temperature Pulse Rate 70 67 Respiratory Rate 15 16 16 Blood Pressure 123/70 126/68 Pulse Oximetry 97 98 97 01/08/18 00:00 01/08/18 00:02 01/08/18 00:17 Temperature 99 F Pulse Rate 65 66 61 Respiratory Rate 16 16 16 Blood Pressure 124/68 124/68 128/72 Pulse Oximetry 97 97 98 01/08/18 00:32 01/08/18 00:47 01/08/18 01:00 Temperature Pulse Rate 63 64 63 Respiratory Rate 16 16 16 Blood Pressure 124/70 120/66 Pulse Oximetry 98 97 97 01/08/18 01:02 01/08/18 01:17 01/08/18 01:32 Temperature Pulse Rate 62 58 L 58 L Respiratory Rate 16 16 16 Blood Pressure 127/67 125/71 131/75 Pulse Oximetry 97 98 98 01/08/18 01:47 01/08/18 02:00 01/08/18 02:02 Temperature Pulse Rate 60 59 L 57 L Respiratory Rate 16 16 16 Blood Pressure 126/72 127/77 Pulse Oximetry 96 97 98 01/08/18 02:17 01/08/18 02:32 01/08/18 02:47 Temperature Pulse Rate 57 L 59 L 58 L Respiratory Rate 16 16 16 Blood Pressure 130/78 130/75 122/71 Pulse Oximetry 98 98 96 01/08/18 03:00 01/08/18 03:02 01/08/18 03:17 Temperature Pulse Rate 59 L 57 L 56 L Respiratory Rate 16 16 16 Blood Pressure 125/75 123/75 Pulse Oximetry 96 96 97 01/08/18 03:32 01/08/18 03:47 01/08/18 03:54 Temperature Pulse Rate 56 L 60 56 L Respiratory Rate 16 16 16 Blood Pressure 118/75 116/70 Pulse Oximetry 96 95 01/08/18 04:00 01/08/18 04:02 01/08/18 04:05 Temperature 98.1 F Pulse Rate 56 L 57 L Respiratory Rate 16 16 16 Blood Pressure 122/72 122/72 Pulse Oximetry 96 96 95 01/08/18 04:17 01/08/18 04:32 01/08/18 04:47 Temperature Pulse Rate 59 L 57 L 54 L Respiratory Rate 16 16 16 Blood Pressure 128/73 119/70 121/73 Pulse Oximetry 95 95 95 01/08/18 05:00 01/08/18 05:02 01/08/18 05:17 Temperature Pulse Rate 55 L 56 L 53 L Respiratory Rate 16 16 16 Blood Pressure 118/72 123/77 Pulse Oximetry 94 L 94 L 95 01/08/18 05:32 01/08/18 05:47 01/08/18 06:00 Temperature Pulse Rate 51 L 50 L 51 L Respiratory Rate 16 16 16 Blood Pressure 122/78 124/82 Pulse Oximetry 96 97 96 01/08/18 06:02 01/08/18 06:17 01/08/18 08:00 Temperature Pulse Rate 50 L 53 L Respiratory Rate 16 16 16 Blood Pressure 123/80 125/81 Pulse Oximetry 96 96 01/08/18 08:47 01/08/18 08:49 01/08/18 09:00 Temperature Pulse Rate 46 L 48 L 50 L Respiratory Rate 16 16 16 Blood Pressure 131/84 130/86 Pulse Oximetry 99 100 100 01/08/18 09:02 01/08/18 09:17 01/08/18 09:32 Temperature Pulse Rate 50 L 53 L 55 L Respiratory Rate 16 16 16 Blood Pressure 130/86 131/81 127/78 Pulse Oximetry 100 100 100 01/08/18 09:47 01/08/18 10:00 01/08/18 10:02 Temperature Pulse Rate 68 78 74 Respiratory Rate 17 16 16 Blood Pressure 123/65 119/66 Pulse Oximetry 100 74 L 100 01/08/18 10:17 01/08/18 10:32 01/08/18 10:47 Temperature Pulse Rate 75 86 73 Respiratory Rate 16 16 16 Blood Pressure 114/66 118/65 109/61 Pulse Oximetry 98 78 L 95 01/08/18 11:00 01/08/18 11:02 01/08/18 11:17 Temperature Pulse Rate 69 76 73 Respiratory Rate 16 16 16 Blood Pressure 103/58 L 103/58 L 97/55 L Pulse Oximetry 96 93 L 93 L 01/08/18 11:32 01/08/18 11:47 01/08/18 12:00 Temperature Pulse Rate 84 81 83 Respiratory Rate 12 14 16 Blood Pressure 126/79 125/75 118/66 Pulse Oximetry 93 L 95 86 L 01/08/18 12:02 01/08/18 12:17 01/08/18 12:22 Temperature Pulse Rate 80 70 Respiratory Rate 16 16 16 Blood Pressure 118/66 112/60 Pulse Oximetry 86 L 89 L 96 01/08/18 12:32 01/08/18 12:47 01/08/18 13:00 Temperature Pulse Rate 67 65 64 Respiratory Rate 16 16 16 Blood Pressure 107/55 L 108/55 L 110/55 L Pulse Oximetry 90 L 91 L 88 L 01/08/18 13:02 01/08/18 13:17 01/08/18 13:32 Temperature Pulse Rate 63 61 59 L Respiratory Rate 16 16 16 Blood Pressure 110/55 L 110/56 L 107/57 L Pulse Oximetry 88 L 88 L 89 L 01/08/18 13:47 01/08/18 14:00 01/08/18 14:02 Temperature Pulse Rate 59 L 57 L 58 L Respiratory Rate 16 16 16 Blood Pressure 115/64 110/64 110/64 Pulse Oximetry 89 L 91 L 91 L Intake & Output 01/07/18 01/08/18 01/08/18 18:59 06:59 18:59 Intake Total 4091 / 4091 650 / 650 350 / 350 Output Total 1300 / 1300 600 / 600 Balance 2791 / 2791 50 / 50 350 / 350 Weight 86.4 kg Intake: IV 3266 / 3266 650 / 650 350 / 350 LR 1000 mL Inj 1,000 ML @ 84 1000 / 1000 mls/hr IV.CONT .[id number] [facility] Rx# :[id number] Diprivan 1000 mg/100 ml Inj 1, 200 / 200 200 / 200 100 / 100 000 mg In 100 ml @ 5 MCG/KG/MIN 2.585 mls/hr IV.CONT TITRATE PRN Rx#:[id number] Unasyn Inj 3 GM In NS Inj 100 200 / 200 200 / 200 ML @ 200 mls/hr IV.SIG Q6H [facility] Rx#:[id number] Thiamine Inj 100 MG In NS Inj 101 / 101 100 ML @ 100 mls/hr IV.SIG DAILY@0600 [facility] Rx#:[id number] Vancomycin Inj 1,500 MG In NS 515 / 515 Inj 500 ML @ 250 mls/hr IV.SIG Q12H [facility] Rx#:[id number] fentaNYL 10 mcg/mL Premix Drip 250 / 250 250 / 250 250 / 250 2,500 mcg In 250 ml @ 50 MCG/HR 5 mls/hr IV.SIG TITRATE PRN Rx #:[id number] Oral 0 / 0 Tube Feeding 225 / 225 Tube Irrigant 0 / 0 Water Bolus Amount 600 / 600 Output: Stool 0 / 0 Urine Amount (Catheter) 1300 / 1300 600 / 600 Indwelling Urethral Catheter 1300 / 1300 600 / 600 Result Diagrams: 01/08/18 03:33 01/08/18 03:33 Objective Remarks: GEN: Intubated and sedated, no current agitation HEENT: NCAT, pupils pinpoint NECK: Trachea midline CARDIO: Regular rate and rhythm PULM: Orally intubated on mechanical ventilation, air entry decreased bilaterally at bases, scattered rhonchi. Bilateral wheezing. ABD/GI: Soft, non-distended EXT/MSK: No peripheral edema SKIN: No rashes or lesions NEURO: Sedated, orally intubated on mechanical ventilation. PSYCH: Unable to assess Assessment and Plan - Problem List (1) Heroin overdose Code(s): T40.1X1A - Poisoning by heroin, accidental (unintentional), initial encounter Status: Acute (2) Polysubstance abuse Code(s): F19.10 - Other psychoactive substance abuse, uncomplicated Status: Chronic (3) Cocaine abuse Code(s): F14.10 - Cocaine abuse, uncomplicated Status: Acute (4) Elevated ETOH level Code(s): R78.0 - Finding of alcohol in blood Status: Acute (5) Marijuana abuse Code(s): F12.10 - Cannabis abuse, uncomplicated Status: Acute (6) TORREY (acute kidney injury) Code(s): N17.9 - Acute kidney failure, unspecified Status: Acute (7) Severe sepsis Code(s): A41.9 - Sepsis, unspecified organism; R65.20 - Severe sepsis without septic shock Status: Acute (8) Acute respiratory failure with hypoxia Code(s): J96.01 - Acute respiratory failure with hypoxia Status: Acute (9) Aspiration pneumonia Code(s): J69.0 - Pneumonitis due to inhalation of food and vomit Status: Acute (10) Vomiting Code(s): R11.10 - Vomiting, unspecified Status: Acute (11) Hyperglycemia Code(s): R73.9 - Hyperglycemia, unspecified Status: Acute - Assessment and Plan Plan: NEURO: Heroin overdose Polysubstance abuse (marijuana, opiate, cocaine) Alcohol level was 61 on admission. Propofol and fentanyl for sedation-- will add PRN ativan and precedex gtt as patient becomes extremely agitated with even slight drop in sedation Thiamine/multivitamin supplementation CTH negative RESP: Acute hypoxemic respiratory failure Acute aspiration pneumonia Intubated in ED 01/05 due to hypoxia. PRVC with ventilator bundle, would like to continue spontaneous breathing trials when sedation regimen is changed DuoNeb every 6 hours. Albuterol every 2 hours as needed. CXR shows RLL opacity, likely aspiration pneumonia (see below) CT chest with bilateral consolidations and right pleural effusion which on my review does not appear to be large hence scheduling for CT-guided pigtail catheter placement and to obtain pleural fluid samples for cultures. CV: Telemetry and BP monitoring in ICU GI: Vomiting - likely secondary to opioid withdrawal Continue TFs at goal Zofran prn. FEN/RENAL: TORREY - suspect pre-renal secondary to overdose and sepsis, improving CPK is normal Urine output adequate D/C maintenance fluids ID: Severe Sepsis secondary to aspiration pneumonia Continue Unasyn for aspiration. MRSA swab negative Blood cultures from 01/05 growing staph epidermidis in both bottles, repeat cultures sent 01/06 no growth at 1 day * Start on vancomycin yesterday when prelim results showed staph, now identified as not MRSA, stopped on 01/07 Consult ID for antibiotic management in view of worsening respiratory status/ sepsis. HEME: No acute hematologic issues. Coags are normal. ENDO: Acute hyperglycemia Monitor bedside glucose every 6 hours and administer low-dose insulin sliding scale as indicated. PROPH: -PPI -SCDs/ lovenox ACCESS: Peripheral IV in left EJ OVERALL: This patient remains critically ill requiring ventilator support for aspiration pneumonia/ pneumonitis and drug overdose. He requires continued ICU level of care. Condition remains critical. Time spent on critical care excluding procedures 35 minutes To help prompt me to consider important information that might be impacting today's encounter and assessment, information from prior notes written by myself or my colleagues may have been "brought forward" into today's note. My signature on this note, however, is an attestation that I personally performed the exam, history, and/or decision-making noted today, and, unless otherwise indicated, the interactions with patient, family, and staff as well as the review of records all occurred today. I also attest that the listed assessment and stated plan reflect my best clinical judgment today based on the combination of historical information, prior notes, and today's exam/ interactions.
--- NOTE | 2018-01-08 15:04 | P.PNADD ---
Addendum to Inpatient Note Reason for Addendum: Additional Documentation Additional information: Spoke with Dr. Sunshine from interventional radiology. On review of CT films both of us agreed that the right pleural effusion is not large enough to tap at this time. Patient has significant consolidation and an elevated right hemidiaphragm. Will hold off on thoracentesis/pigtail catheter placement at this time.
[2018-01-08] MEDS: Methadone 10 MG Tablet PO SCH (18:44)
--- NOTE | 2018-01-08 20:11 | MG ---
cc: Arturo Lucas MD ELECTROENCEPHALOGRAM NUMBER: [id number]. CLINICAL HISTORY: Intubated on Diprivan, used heroine, vomited, clenching fists. MEDICATIONS: Ativan. DESCRIPTION: Diffuse 5 Hz slowing is seen, sometimes up into the 6 Hz range. Recording overall is synchronous and symmetric. No epileptiform or seizure activity is noted. There are no hemisphere asymmetries. Photic stimulation is performed without any posterior driving. IMPRESSION: Diffuse theta slowing consistent with a moderate diffuse encephalopathy, but no focal abnormalities noted. No seizure activity is seen. Arturo Lucas MD DJM/ts , 07:19 PM , 07:22 PM
[2018-01-09] MEDS: Insulin NovoLOG Aspart Correctional Sugar Inj SQ SCH ×4 (01:09→18:51)
[2018-01-09] MEDS: Oral Hygiene Kit OROPHARYNG SCH ×4 (01:09→16:40)
[2018-01-09] MEDS: Potassium Chlor 20 mEq Premix 20 MEQ/100 ML PIGGYBACK IV.SIG PRN ×3 (01:49→22:25)
[2018-01-09] MEDS: Propofol 1000 mg/100 ml Inj 1,000 MG/100 ML BOTTLE IV.CONT PRN ×5 (03:04→19:43)
[2018-01-09] MEDS: fentaNYL 10 mcg/mL Premix Drip 2,500 MCG/250 ML BAG IV.SIG PRN ×3 (03:09→22:27)
[2018-01-09] MEDS: Ampicillin/Sulbactam Inj 3 GM in Sodium Chloride 0.9% Inj 100 ML IV.SIG SCH (03:40)
[2018-01-09 05:08] LABS: Baso % (Auto) 0.4 % (0.0-2.0); Eos # (Auto) 0.2 th/mm3 (0.0-0.4); Eos % (Auto) 2.1 % (0.0-4.0); Hematocrit 38.4 % (39.0-51.0); Lymph # (Auto) 0.8 th/mm3 (1.0-4.8); Lymph % (Auto) 8.6 % (9.0-44.0); Mean Corpuscular HGB Conc 33.9 % (32.0-36.0); Mean Corpuscular Hemoglobin 33.5 pg (27.0-34.0); Mean Platelet Volume 8.9 fL (7.0-11.0); Mono # (Auto) 1.5 th/mm3 (0.0-0.9); Mono % (Auto) 16.4 % (0.0-8.0); Neut # (Auto) 6.6 th/mm3 (1.8-7.7); Neut % (Auto) 72.5 % (16.0-70.0); Platelet Count 184 th/mm3 (150-450); Red Blood Count 3.88 mil/mm3 (4.50-5.90); Red Cell Distribution Width 13.4 % (11.6-17.2)
[2018-01-09 05:27] LABS: Alanine Aminotransferase 22 U/L (12-78); Albumin 2.4 g/dL (3.4-5.0); Anion Gap 10 meq/L (5-15); Aspartate Aminotransferase 25 U/L (15-37); Blood Urea Nitrogen 9 mg/dL (7-18); Calcium 8.6 mg/dL (8.5-10.1); Carbon Dioxide 24.8 meq/L (21.0-32.0); Chloride 111 meq/L (98-107); Glomerular Filtration Rate Greater Than 89 mL/min (>89); Glucose,Random 72 mg/dL (74-106); Magnesium 1.8 mg/dL (1.5-2.5); Potassium 3.2 meq/L (3.5-5.1); Sodium 146 meq/L (136-145)
[2018-01-09 05:30] LABS: Alkaline Phosphatase 99 U/L (45-117); Total Protein 6.4 g/dL (6.4-8.2)
[2018-01-09] MEDS: Chlorhexidine Gluconate 2% 1 Pack (2 Cloths) TOPICAL SCH (05:55)
[2018-01-09] MEDS: Methadone 10 MG Tablet PO SCH ×2 (06:01→17:48)
--- NOTE | 2018-01-09 09:47 | P.PNCC ---
Subjective Subjective Remarks/Hospital Course: 37-year-old male who is brought to [facility] emergency department after friends contacted [facility] due to decreased mental status with suspected heroin overdose. He had used heroin earlier in the evening. [facility] reportedly found him laying in emesis with a thready pulse. They gave him sequential doses of Narcan to a total of 2.4 mg IV at which point he became more awake and alert. He then had multiple episodes of vomiting in route. NG tube was placed by the paramedics and they aspirated gastric contents and then removed s NG prior to arrival. His room air sats were reportedly 84% and he was placed on NR. Patient told Dr. Lovett that this was his first time using heroin and that he injected it. CXR demonstrated RLL opacity. He was started on Unasyn for aspiration pneumonia and given nebs. He eventually was intubated due to hypoxia with sats in high 80s despite nonrebreather. Focused Factory Manager consulted for admission. 01/06: Remains sedated and intubated, requires PEEP 12 and FiO2 70%, will try to wean these today if tolerated. 01/07: Agitated overnight and this morning, 2 episodes where the patient bit down on ETT, desaturated, and became unstable. Not tolerating pressure support trials. 01/08: Remains sedated, orally intubated on mechanical ventilation. PEEP remains at +12. CT chest done today shows worsening consolidations. Pleural effusion. 01/09: Remains critically ill with severe bilateral lower lobe consolidated pneumonias. Requiring markedly elevated mean airway pressure still. Patient is nutritionally depleted and not responding well to our aggressive medical treatment. Objective Vital Signs / I&O: Vital Signs 01/08/18 09:47 01/08/18 10:00 01/08/18 10:02 Temperature Pulse Rate 68 78 74 Respiratory Rate 17 16 16 Blood Pressure 123/65 119/66 Pulse Oximetry 100 74 L 100 01/08/18 10:17 01/08/18 10:32 01/08/18 10:47 Temperature Pulse Rate 75 86 73 Respiratory Rate 16 16 16 Blood Pressure 114/66 118/65 109/61 Pulse Oximetry 98 78 L 95 01/08/18 11:00 01/08/18 11:02 01/08/18 11:17 Temperature Pulse Rate 69 76 73 Respiratory Rate 16 16 16 Blood Pressure 103/58 L 103/58 L 97/55 L Pulse Oximetry 96 93 L 93 L 01/08/18 11:32 01/08/18 11:47 01/08/18 12:00 Temperature Pulse Rate 84 81 83 Respiratory Rate 12 14 18 Blood Pressure 126/79 125/75 118/66 Pulse Oximetry 93 L 95 86 L 01/08/18 12:02 01/08/18 12:17 01/08/18 12:22 Temperature Pulse Rate 80 70 Respiratory Rate 16 16 16 Blood Pressure 118/66 112/60 Pulse Oximetry 86 L 89 L 96 01/08/18 12:32 01/08/18 12:47 01/08/18 13:00 Temperature Pulse Rate 67 65 64 Respiratory Rate 16 16 16 Blood Pressure 107/55 L 108/55 L 110/55 L Pulse Oximetry 90 L 91 L 88 L 01/08/18 13:02 01/08/18 13:17 01/08/18 13:32 Temperature Pulse Rate 63 61 59 L Respiratory Rate 16 16 16 Blood Pressure 110/55 L 110/56 L 107/57 L Pulse Oximetry 88 L 88 L 89 L 01/08/18 13:47 01/08/18 14:00 01/08/18 14:02 Temperature Pulse Rate 59 L 57 L 58 L Respiratory Rate 16 16 16 Blood Pressure 115/64 110/64 110/64 Pulse Oximetry 89 L 91 L 91 L 01/08/18 14:17 01/08/18 14:32 01/08/18 14:47 Temperature 98.2 F 98.8 F Pulse Rate 58 L 56 L 59 L Respiratory Rate 16 16 16 Blood Pressure 115/66 111/65 113/65 Pulse Oximetry 92 L 93 L 92 L 01/08/18 15:00 01/08/18 15:02 01/08/18 15:17 Temperature 98.2 F Pulse Rate 59 L 60 59 L Respiratory Rate 16 16 16 Blood Pressure 116/66 116/66 118/67 Pulse Oximetry 92 L 93 L 93 L 01/08/18 15:32 01/08/18 15:47 01/08/18 16:00 Temperature Pulse Rate 62 63 81 Respiratory Rate 16 16 18 Blood Pressure 118/66 121/68 Pulse Oximetry 93 L 93 L 91 L 01/08/18 16:02 01/08/18 16:17 01/08/18 16:32 Temperature 99.0 F Pulse Rate 84 80 93 H Respiratory Rate 17 16 16 Blood Pressure 113/58 L 124/63 148/77 H Pulse Oximetry 90 L 90 L 87 L 01/08/18 16:47 01/08/18 17:00 01/08/18 17:02 Temperature 97.9 F Pulse Rate 87 81 81 Respiratory Rate 18 18 18 Blood Pressure 121/55 L 118/58 L Pulse Oximetry 94 L 93 L 93 L 01/08/18 17:15 01/08/18 17:17 01/08/18 17:32 Temperature Pulse Rate 77 76 Respiratory Rate 18 18 18 Blood Pressure 112/58 L 112/57 L Pulse Oximetry 94 L 94 L 95 01/08/18 17:47 01/08/18 18:00 01/08/18 18:02 Temperature 98.1 F Pulse Rate 78 74 74 Respiratory Rate 18 18 18 Blood Pressure 109/58 L 111/58 L 111/58 L Pulse Oximetry 96 96 96 01/08/18 18:17 01/08/18 18:32 01/08/18 18:47 Temperature Pulse Rate 73 72 72 Respiratory Rate 18 18 18 Blood Pressure 109/58 L 114/62 114/62 Pulse Oximetry 97 97 97 01/08/18 19:00 01/08/18 19:02 01/08/18 19:17 Temperature Pulse Rate 73 73 73 Respiratory Rate 18 18 18 Blood Pressure 114/63 115/63 Pulse Oximetry 97 97 96 01/08/18 19:32 01/08/18 19:47 01/08/18 20:00 Temperature 99.0 F Pulse Rate 74 79 75 Respiratory Rate 18 18 18 Blood Pressure 116/66 116/63 Pulse Oximetry 96 94 L 92 L 01/08/18 20:02 01/08/18 20:17 01/08/18 20:32 Temperature Pulse Rate 75 75 76 Respiratory Rate 18 18 18 Blood Pressure 110/61 110/59 L 109/59 L Pulse Oximetry 92 L 96 100 01/08/18 20:58 01/08/18 21:00 01/08/18 21:02 Temperature Pulse Rate 96 H 99 H Respiratory Rate 17 19 17 Blood Pressure Pulse Oximetry 94 L 94 L 01/08/18 21:30 01/08/18 22:00 01/08/18 22:30 Temperature Pulse Rate 104 H 106 H 95 H Respiratory Rate 21 20 18 Blood Pressure 142/87 H 156/83 H 136/68 Pulse Oximetry 94 L 95 90 L 01/08/18 23:00 01/08/18 23:30 01/08/18 23:32 Temperature Pulse Rate 95 H 96 H Respiratory Rate 18 18 18 Blood Pressure 141/79 H 140/75 Pulse Oximetry 92 L 93 L 93 L 01/09/18 00:00 01/09/18 00:30 01/09/18 01:00 Temperature 99.8 F H Pulse Rate 108 H 93 H 89 Respiratory Rate 18 18 18 Blood Pressure 145/76 H 133/68 133/72 Pulse Oximetry 93 L 93 L 94 L 01/09/18 01:30 01/09/18 02:00 01/09/18 02:30 Temperature Pulse Rate 90 86 85 Respiratory Rate 18 18 18 Blood Pressure 130/69 127/69 125/68 Pulse Oximetry 95 95 96 01/09/18 03:00 01/09/18 03:30 01/09/18 03:42 Temperature Pulse Rate 89 97 H 101 H Respiratory Rate 18 22 22 Blood Pressure 119/71 169/102 H Pulse Oximetry 95 94 L 94 L 01/09/18 03:49 01/09/18 04:00 01/09/18 04:30 Temperature 99.6 F Pulse Rate 93 H 95 H 92 H Respiratory Rate 18 18 18 Blood Pressure 136/73 140/72 130/71 Pulse Oximetry 96 94 L 95 01/09/18 05:00 01/09/18 05:30 01/09/18 06:00 Temperature Pulse Rate 89 87 84 Respiratory Rate 18 18 18 Blood Pressure 123/67 123/63 112/57 L Pulse Oximetry 94 L 93 L 92 L 01/09/18 08:49 01/09/18 08:50 Temperature Pulse Rate 72 Respiratory Rate 18 18 Blood Pressure Pulse Oximetry 97 Intake & Output 01/08/18 01/09/18 01/09/18 18:59 06:59 18:59 Intake Total 1700 / 1700 750 / 750 Output Total 700 / 700 425 / 425 Balance 1000 / 1000 325 / 325 Weight 86.9 kg Intake: IV 1000 / 1000 750 / 750 Diprivan 1000 mg/100 ml Inj 1, 300 / 300 200 / 200 000 mg In 100 ml @ 5 MCG/KG/MIN 2.585 mls/hr IV.CONT TITRATE PRN Rx#:[id number] Unasyn Inj 3 GM In NS Inj 100 200 / 200 200 / 200 ML @ 200 mls/hr IV.SIG Q6H VU Rx#:[id number] KCl 20 mEq Premix Inj 20 meq In 100 / 100 100 ml @ 50 mls/hr IV.SIG Q2H PRN Rx#:[id number] fentaNYL 10 mcg/mL Premix Drip 500 / 500 250 / 250 2,500 mcg In 250 ml @ 50 MCG/HR 5 mls/hr IV.SIG TITRATE PRN Rx #:[id number] Tube Feeding 0 / 0 Water Bolus Amount 700 / 700 Output: Urine Amount (Catheter) 700 / 700 375 / 375 Indwelling Urethral Catheter 700 / 700 375 / 375 Gastric Drainage 50 / 50 Orogastric Tube 50 / 50 Other: # Bowel Movements 0 Result Diagrams: 01/09/18 04:32 01/09/18 04:32 Objective Remarks: GEN: Intubated and sedated, HEENT: NCAT, pupils 2mm NECK: Trachea midline, orotracheal intubation, neck supple CARDIO: Regular rate and rhythm PULM: Air entry markedly decreased bilaterally at bases, scattered rhonchi and mobile secretions persist. Light bilateral wheezing. ABD/GI: Soft, non-distended. No guarding, bowel sounds are active. EXT/MSK: No peripheral edema, tepid, adequately perfused. SKIN: No rashes or lesions NEURO: Sedated, orally intubated on mechanical ventilation. Withdraws 4 limbs to noxious stimulation. PSYCH: Unable to assess Assessment and Plan - Problem List (1) Heroin overdose Code(s): T40.1X1A - Poisoning by heroin, accidental (unintentional), initial encounter Status: Acute (2) Polysubstance abuse Code(s): F19.10 - Other psychoactive substance abuse, uncomplicated Status: Chronic (3) Cocaine abuse Code(s): F14.10 - Cocaine abuse, uncomplicated Status: Acute (4) Elevated ETOH level Code(s): R78.0 - Finding of alcohol in blood Status: Acute (5) Marijuana abuse Code(s): F12.10 - Cannabis abuse, uncomplicated Status: Acute (6) TORREY (acute kidney injury) Code(s): N17.9 - Acute kidney failure, unspecified Status: Acute (7) Severe sepsis Code(s): A41.9 - Sepsis, unspecified organism; R65.20 - Severe sepsis without septic shock Status: Acute (8) Acute respiratory failure with hypoxia Code(s): J96.01 - Acute respiratory failure with hypoxia Status: Acute (9) Aspiration pneumonia Code(s): J69.0 - Pneumonitis due to inhalation of food and vomit Status: Acute (10) Vomiting Code(s): R11.10 - Vomiting, unspecified Status: Acute (11) Hyperglycemia Code(s): R73.9 - Hyperglycemia, unspecified Status: Acute (12) Protein-calorie malnutrition, moderate Code(s): E44.0 - Moderate protein-calorie malnutrition Status: Acute - Assessment and Plan Plan: NEURO: Heroin overdose Polysubstance abuse (marijuana, opiate, cocaine) Alcohol level was 61 on admission. Propofol and fentanyl for sedation-- PRN ativan and precedex gtt as patient becomes extremely agitated with even slight drop in sedation Thiamine/multivitamin supplementation CTH negative Tolerance to narcotic analgesia implies chronic narcotic use RESP: Acute hypoxemic respiratory failure Acute aspiration pneumonia Intubated in ED 01/05 due to hypoxia. PRVC with ventilator bundle, would like to continue spontaneous breathing trials when sedation regimen is changed. PEEP 12 DuoNeb every 6 hours. Albuterol every 2 hours as needed. CXR shows RLL opacity, likely aspiration pneumonia (see below) CT chest with dense bilateral basilar consolidations and small right pleural effusion CV: Telemetry and BP monitoring in ICU GI: Vomiting - likely secondary to opioid withdrawal Continue TFs at goal Zofran prn. FEN/RENAL: TORREY - suspect pre-renal secondary to overdose and sepsis, improving CPK is normal Urine output adequate D/C maintenance fluids ID: Severe Sepsis secondary to aspiration pneumonia Continue Unasyn for aspiration. MRSA swab negative Blood cultures from 01/05 growing staph epidermidis in both bottles, repeat cultures sent 01/06 no growth at 1 day * Start on vancomycin yesterday when prelim results showed staph, now identified as not MRSA, stopped on 01/07 Consult ID for antibiotic management in view of worsening respiratory status/ sepsis. HEME: No acute hematologic issues. Coags are normal. ENDO: Acute hyperglycemia Monitor bedside glucose every 6 hours and administer low-dose insulin sliding scale as indicated. Poor control continues PROPH: -PPI -SCDs/ lovenox ACCESS: Peripheral IV in left EJ OVERALL: This patient remains critically ill requiring ventilator support for aspiration pneumonia and drug overdose. He requires continued ICU level of care. His early response to aggressive medical therapy has been poor undoubtedly related to chronic debilitation and poor baseline nutritional status. Critical care time 40 minutes aside from procedures.
[2018-01-09] MEDS: Enoxaparin Inj 40 MG/0.4 ML Syringe SQ SCH (10:06)
[2018-01-09] MEDS ORDERED: Vancomycin Consult Pharmacy 1 EACH OTHER SCH (10:30)
[2018-01-09] MEDS: Senna/Docusate Sodium 8.6/50 MG Tablet PO SCH ×2 (11:06→22:24)
[2018-01-09] MEDS: Chlorhexidine 0.12% Oral Kit 15 ML UDC OROPHARYNG SCH ×2 (11:06→22:24)
[2018-01-09] MEDS: Famotidine PF Inj 20 MG/2 ML Vial IV.PUSH SCH ×2 (11:07→22:27)
[2018-01-09] MEDS: Beneprotein Powder Packet G-TUBE SCH ×3 (11:07→18:41)
[2018-01-09] MEDS: Piperacil/Tazo 4.5 GM Premix 4.5 GM/100 ML BAG IV.SIG SCH ×3 (11:09→22:24)
[2018-01-09] MEDS: Vancomycin Inj 1,500 MG in Sodium Chlor 0.9% Inj 500 ML IV.SIG SCH (11:59)
--- NOTE | 2018-01-09 12:25 | MB ---
cc: Bishnu Lozoya MD DATE: 01/09/2018 REQUESTING PHYSICIAN: Julio Kent MD REASON: Sepsis, pneumonia. HISTORY OF PRESENT ILLNESS: This is a 37-year-old white male who was brought in to the emergency department when he was found down by a friend. The patient was noted to have overdosed on drugs. He was noted to have used IV heroin. In the emergency department, his temperature was normal. Chest x-ray was performed and showed an elevation of the right hemidiaphragm and right lower lobe consolidation versus atelectasis and small to moderate-sized right pleural effusion. The white blood cell count was elevated at 14.3. The patient was admitted on 01/05/2018. Later in the day, the white blood cell count was down to 8.0 on 01/05/2018 and it has remained normal since that time. The patient was intubated. He remains on the ventilator and on sedation. He is currently on 100% FiO2. He was put on Unasyn for aspiration pneumonia on admission. Blood cultures obtained on admission have Staph coagulase negative. This is present in 4/4 bottles. Sputum culture on 01/06/2018 has no growth. Repeated blood culture on 01/06/2018 has no growth in 2 days. Information was obtained from medical records since the patient is unresponsive. PAST MEDICAL HISTORY: Intravenous drug abuse. ALLERGIES: NO ALLERGY INFORMATION AVAILABLE. MEDICATIONS: 1. Lovenox. 2. Pepcid. 3. Ativan. 4. Theragran. 5. Potassium. 6. Rosette-Colace. 7. Beneprotein powder. 8. Ampicillin. SOCIAL HISTORY: Unable to obtain. REVIEW OF SYSTEMS: Unable to obtain. PHYSICAL EXAMINATION: GENERAL: This is a well-developed male who on the ventilator and unresponsive. VITAL SIGNS: Include temperature 99.6, BP 112/72, heart rate 72. HEENT: Unable to fully assess. The sclerae are nonicteric. Mild scleral edema. Pupils reactive to light. No icterus. Oropharynx intubated. NECK: No adenopathy or swelling. LUNGS: Coarse breath sounds bilaterally. HEART: Regular S1, S2, without murmurs, rubs or gallops. ABDOMEN: Bowel sounds present. Soft. No tenderness appreciated. RECTAL: Not performed. EXTREMITIES: No clubbing or cyanosis or edema. No embolic lesions visible. SKIN: No diffuse rash. NEUROLOGIC: Unable to assess. PSYCHIATRIC: Unable to assess. LABORATORY DATA: WBC 9.0, platelets 184, 72% neutrophils, 8% lymphocytes, 16% monocytes. Creatinine 0.67. Estimated GFR greater than 89. Sodium 146. Liver function tests normal. IMPRESSION: 1. Pneumonia. 2. Bacteremia due to Staphylococcus. 3. Acute respiratory failure. 4. Intravenous drug use. 5. Probable aspiration. RECOMMENDATIONS: 1. Discontinue ampicillin/sulbactam. 2. Begin piperacillin/tazobactam. 3. Begin vancomycin. Pharmacy to manage. 4. Follow the blood cultures. 5. Monitor clinical response. Thank you for this consultation. I will follow the patient's progress with you and make further recommendations and followup as necessary. MD SHADIA Christensen/marian , 10:38 AM , 10:51 AM
[2018-01-09] MEDS: Potassium Chlor 40 mEq Premix 40 MEQ/100 ML PIGGYBACK IV.SIG PRN (12:43)
[2018-01-10] MEDS: Insulin NovoLOG Aspart Correctional Sugar Inj SQ SCH ×5 (00:13→23:09)
[2018-01-10] MEDS: Oral Hygiene Kit OROPHARYNG SCH ×5 (00:14→23:09)
[2018-01-10] MEDS: Propofol 1000 mg/100 ml Inj 1,000 MG/100 ML BOTTLE IV.CONT PRN ×5 (00:18→23:45)
[2018-01-10] MEDS: Vancomycin Inj 1,500 MG in Sodium Chlor 0.9% Inj 500 ML IV.SIG SCH ×3 (00:31→23:08)
[2018-01-10] MEDS: Chlorhexidine Gluconate 2% 1 Pack (2 Cloths) TOPICAL SCH (03:27)
[2018-01-10] MEDS: Piperacil/Tazo 4.5 GM Premix 4.5 GM/100 ML BAG IV.SIG SCH ×4 (04:19→22:15)
[2018-01-10 05:40] LABS: Hematocrit 42.5 % (39.0-51.0); Hemoglobin 14.3 gm/dL (13.0-17.0); Mean Corpuscular HGB Conc 33.6 % (32.0-36.0); Mean Corpuscular Hemoglobin 33.5 pg (27.0-34.0); Mean Corpuscular Volume 99.5 fL (80.0-100.0); Mean Platelet Volume 9.4 fL (7.0-11.0); Platelet Count 182 th/mm3 (150-450); Red Blood Count 4.27 mil/mm3 (4.50-5.90); Red Cell Distribution Width 13.5 % (11.6-17.2); White Blood Count 9.8 th/mm3 (4.0-11.0)
[2018-01-10] MEDS: Methadone 10 MG Tablet PO SCH ×2 (05:40→18:34)
[2018-01-10 06:01] LABS: Alanine Aminotransferase 21 U/L (12-78); Albumin 2.3 g/dL (3.4-5.0); Anion Gap 12 meq/L (5-15); Aspartate Aminotransferase 25 U/L (15-37); Blood Urea Nitrogen 8 mg/dL (7-18); Calcium 8.5 mg/dL (8.5-10.1); Carbon Dioxide 23.3 meq/L (21.0-32.0); Chloride 109 meq/L (98-107); Glomerular Filtration Rate Greater Than 89 mL/min (>89); Glucose,Random 66 mg/dL (74-106); Magnesium 1.6 mg/dL (1.5-2.5); Potassium 3.7 meq/L (3.5-5.1); Sodium 144 meq/L (136-145)
[2018-01-10 06:04] LABS: Alkaline Phosphatase 110 U/L (45-117); Total Protein 6.5 g/dL (6.4-8.2)
[2018-01-10] MEDS: Dextrose 50% in Water 50 ML Vial IV.PUSH PRN ×2 (06:48→21:30)
[2018-01-10] MEDS: fentaNYL 10 mcg/mL Premix Drip 2,500 MCG/250 ML BAG IV.SIG PRN ×2 (09:02→18:32)
[2018-01-10] MEDS: Famotidine PF Inj 20 MG/2 ML Vial IV.PUSH SCH ×2 (09:46→20:23)
[2018-01-10] MEDS: Enoxaparin Inj 40 MG/0.4 ML Syringe SQ SCH (09:46)
[2018-01-10 10:54] LABS: Eosinophils 1 % (0-4); Lymphocytes 10 % (9-44); Monocytes 16 % (0-8)
[2018-01-10 10:55] LABS: Platelet Estimate Normal (Normal); Platelet Morphology Clumped (Normal); Toxic Vacuolation Present
[2018-01-10] MEDS: Beneprotein Powder Packet G-TUBE SCH ×3 (11:37→18:29)
[2018-01-10] MEDS: Chlorhexidine 0.12% Oral Kit 15 ML UDC OROPHARYNG SCH ×2 (11:37→20:24)
[2018-01-10] MEDS: Senna/Docusate Sodium 8.6/50 MG Tablet PO SCH ×2 (11:47→20:23)
--- NOTE | 2018-01-10 12:36 | P.PNCC ---
Subjective Subjective Remarks/Hospital Course: 37-year-old male who is brought to [facility] emergency department after friends contacted [facility] due to decreased mental status with suspected heroin overdose. He had used heroin earlier in the evening. [facility] reportedly found him laying in emesis with a thready pulse. They gave him sequential doses of Narcan to a total of 2.4 mg IV at which point he became more awake and alert. He then had multiple episodes of vomiting in route. NG tube was placed by the paramedics and they aspirated gastric contents and then removed s NG prior to arrival. His room air sats were reportedly 84% and he was placed on NR. Patient told Dr. Lovett that this was his first time using heroin and that he injected it. CXR demonstrated RLL opacity. He was started on Unasyn for aspiration pneumonia and given nebs. He eventually was intubated due to hypoxia with sats in high 80s despite nonrebreather. Archivist Economic History consulted for admission. 01/06: Remains sedated and intubated, requires PEEP 12 and FiO2 70%, will try to wean these today if tolerated. 01/07: Agitated overnight and this morning, 2 episodes where the patient bit down on ETT, desaturated, and became unstable. Not tolerating pressure support trials. 01/08: Remains sedated, orally intubated on mechanical ventilation. PEEP remains at +12. CT chest done today shows worsening consolidations. Pleural effusion. 01/09: Remains critically ill with severe bilateral lower lobe consolidated pneumonias. Requiring markedly elevated mean airway pressure still. Patient is nutritionally depleted and not responding well to our aggressive medical treatment. 01/10: Continued requirements for markedly elevated fractional inspiratory oxygen concentration. Continued dense consolidation in both lower lobes PEEP reduced to avoid overexpansion of upper lobes. Objective Vital Signs / I&O: Vital Signs 01/09/18 13:00 01/09/18 13:30 01/09/18 14:00 Temperature 98.4 F 98.5 F Pulse Rate 60 59 L 57 L Respiratory Rate 18 18 18 Blood Pressure 115/70 118/75 125/82 Pulse Oximetry 95 95 96 01/09/18 14:30 01/09/18 15:00 01/09/18 15:30 Temperature Pulse Rate 56 L 62 63 Respiratory Rate 18 18 18 Blood Pressure 125/83 117/74 112/70 Pulse Oximetry 96 96 94 L 01/09/18 16:00 01/09/18 16:30 01/09/18 16:55 Temperature 98.8 F Pulse Rate 59 L 57 L Respiratory Rate 18 18 18 Blood Pressure 112/66 120/78 Pulse Oximetry 95 96 01/09/18 17:00 01/09/18 17:30 01/09/18 18:00 Temperature Pulse Rate 56 L 58 L 72 Respiratory Rate 18 18 18 Blood Pressure 119/77 117/75 115/76 Pulse Oximetry 95 94 L 94 L 01/09/18 18:30 01/09/18 19:00 01/09/18 19:30 Temperature Pulse Rate 83 79 77 Respiratory Rate 18 18 18 Blood Pressure 124/72 124/70 120/66 Pulse Oximetry 88 L 87 L 96 01/09/18 20:00 01/09/18 20:30 01/09/18 20:49 Temperature 99.4 F Pulse Rate 70 79 86 Respiratory Rate 18 18 18 Blood Pressure 120/69 124/75 Pulse Oximetry 94 L 97 96 01/09/18 21:00 01/09/18 21:30 01/09/18 22:00 Temperature Pulse Rate 85 94 H 86 Respiratory Rate 18 18 18 Blood Pressure 123/75 133/75 122/72 Pulse Oximetry 96 93 L 94 L 01/09/18 22:30 01/09/18 23:00 01/09/18 23:30 Temperature Pulse Rate 84 79 74 Respiratory Rate 18 18 18 Blood Pressure 123/71 118/70 122/75 Pulse Oximetry 94 L 95 96 01/10/18 00:00 01/10/18 01:00 01/10/18 01:39 Temperature 99.2 F Pulse Rate 86 80 Respiratory Rate 18 18 18 Blood Pressure 131/82 120/70 Pulse Oximetry 94 L 94 L 94 L 01/10/18 02:00 01/10/18 03:00 01/10/18 04:00 Temperature 99 F Pulse Rate 74 70 85 Respiratory Rate 18 18 18 Blood Pressure 122/72 125/80 127/75 Pulse Oximetry 95 95 92 L 01/10/18 04:08 01/10/18 05:00 01/10/18 06:00 Temperature Pulse Rate 79 72 Respiratory Rate 19 18 18 Blood Pressure 118/66 129/81 Pulse Oximetry 92 L 93 L 95 01/10/18 09:40 Temperature Pulse Rate 76 Respiratory Rate 14 Blood Pressure Pulse Oximetry 95 Intake & Output 01/09/18 01/10/18 01/10/18 18:59 06:59 18:59 Intake Total 1450 / 1450 2680 / 2680 350 / 350 Output Total 600 / 600 500 / 500 Balance 850 / 850 2180 / 2180 350 / 350 Weight 87.6 kg Intake: IV 750 / 750 1979 / 1979 350 / 350 Diprivan 1000 mg/100 ml Inj 1, 200 / 200 300 / 300 100 / 100 000 mg In 100 ml @ 5 MCG/KG/MIN 2.585 mls/hr IV.CONT TITRATE PRN Rx#:[id number] Zosyn 4.5 GM Premix 4.5 gm In 200 / 200 200 / 200 100 ml @ 200 mls/hr IV.SIG Q6H VU Rx#:[id number] KCl 20 mEq Premix Inj 20 meq In 200 / 200 100 ml @ 50 mls/hr IV.SIG Q2H PRN Rx#:[id number] KCl 40 mEq Premix Inj 40 meq In 100 / 100 100 ml @ 25 mls/hr IV.SIG Q2H PRN Rx#:[id number] Vancomycin Inj 1,500 MG In NS 1030 / 1030 Inj 500 ML @ 250 mls/hr IV.SIG Q12H VU Rx#:[id number] fentaNYL 10 mcg/mL Premix Drip 250 / 250 250 / 250 250 / 250 2,500 mcg In 250 ml @ 50 MCG/HR 5 mls/hr IV.SIG TITRATE PRN Rx #:[id number] Oral 0 / 0 0 / 0 Tube Feeding 0 / 0 0 / 0 Tube Irrigant 0 / 0 0 / 0 Water Bolus Amount 700 / 700 700 / 700 Output: Stool 0 / 0 0 / 0 Urine Amount (Catheter) 450 / 450 500 / 500 Indwelling Urethral Catheter 450 / 450 500 / 500 Gastric Drainage 150 / 150 Orogastric Tube 150 / 150 Other: # Bowel Movements 0 0 Result Diagrams: 01/10/18 04:37 01/10/18 04:37 Objective Remarks: GEN: Intubated and sedated, HEENT: NCAT, pupils 2mm NECK: Trachea midline, orotracheal intubation, neck supple CARDIO: Regular rate and rhythm, no JVD. PULM: Air entry markedly decreased bilaterally at bases. Bilateral rhonchi and mobile secretions persist. Light bilateral wheezing. ABD/GI: Soft, non-distended. No guarding, bowel sounds are active. EXT/MSK: No peripheral edema, tepid, adequately perfused. SKIN: No rashes or lesions NEURO: Sedated, orally intubated on mechanical ventilation. Withdraws 4 limbs to noxious stimulation. Assessment and Plan - Problem List (1) Heroin overdose Code(s): T40.1X1A - Poisoning by heroin, accidental (unintentional), initial encounter Status: Acute (2) Polysubstance abuse Code(s): F19.10 - Other psychoactive substance abuse, uncomplicated Status: Chronic (3) Cocaine abuse Code(s): F14.10 - Cocaine abuse, uncomplicated Status: Acute (4) Elevated ETOH level Code(s): R78.0 - Finding of alcohol in blood Status: Acute (5) Marijuana abuse Code(s): F12.10 - Cannabis abuse, uncomplicated Status: Acute (6) TORREY (acute kidney injury) Code(s): N17.9 - Acute kidney failure, unspecified Status: Acute (7) Severe sepsis Code(s): A41.9 - Sepsis, unspecified organism; R65.20 - Severe sepsis without septic shock Status: Acute (8) Acute respiratory failure with hypoxia Code(s): J96.01 - Acute respiratory failure with hypoxia Status: Acute (9) Aspiration pneumonia Code(s): J69.0 - Pneumonitis due to inhalation of food and vomit Status: Acute (10) Vomiting Code(s): R11.10 - Vomiting, unspecified Status: Acute (11) Hyperglycemia Code(s): R73.9 - Hyperglycemia, unspecified Status: Acute (12) Protein-calorie malnutrition, moderate Code(s): E44.0 - Moderate protein-calorie malnutrition Status: Acute - Assessment and Plan Plan: NEURO: Heroin overdose Polysubstance abuse (marijuana, opiate, cocaine) Alcohol level was 61 on admission. Propofol and fentanyl for sedation-- PRN ativan and precedex gtt as patient becomes extremely agitated with even slight drop in sedation Thiamine/multivitamin supplementation CTH negative Tolerance to narcotic analgesia implies chronic narcotic use We may need to start methadone to wean fentanyl. RESP: Acute hypoxemic respiratory failure Acute aspiration pneumonia Intubated in ED 01/05 due to hypoxia. PRVC with ventilator bundle, would like to continue spontaneous breathing trials when sedation regimen is changed. PEEP 12 DuoNeb every 6 hours. Albuterol every 2 hours as needed. CXR shows RLL opacity, likely aspiration pneumonia (see below) CT chest with dense bilateral basilar consolidations and small right pleural effusion CV: Telemetry and BP monitoring in ICU GI: Vomiting - likely secondary to opioid withdrawal Continue TFs at goal Zofran prn. FEN/RENAL: TORREY - suspect pre-renal secondary to overdose and sepsis, improving CPK is normal Urine output adequate D/C maintenance fluids ID: Severe Sepsis secondary to aspiration pneumonia Continue Unasyn for aspiration. MRSA swab negative Blood cultures from 01/05 growing staph epidermidis in both bottles, repeat cultures sent 01/06 no growth at 1 day * Start on vancomycin yesterday when prelim results showed staph, now identified as not MRSA, stopped on 01/07 Consult ID for antibiotic management in view of worsening respiratory status/ sepsis. HEME: No acute hematologic issues. Coags are normal. ENDO: Acute hyperglycemia Monitor bedside glucose every 6 hours and administer low-dose insulin sliding scale as indicated. Poor control continues PROPH: -PPI -SCDs/ lovenox ACCESS: Peripheral IV in left EJ OVERALL: This patient remains critically ill requiring ventilator support for aspiration pneumonia and heroin drug overdose. He requires continued ICU level of care. His early response to aggressive medical therapy has been poor, undoubtedly related to chronic debilitation and poor baseline nutritional status. His long-term prognosis is guarded, largely due to concerns about his nutritional and immune status. Critical care time 42 minutes aside from procedures.
[2018-01-11] MEDS: fentaNYL 10 mcg/mL Premix Drip 2,500 MCG/250 ML BAG IV.SIG PRN ×3 (02:50→21:18)
[2018-01-11] MEDS: Oral Hygiene Kit OROPHARYNG SCH ×6 (03:29→23:46)
[2018-01-11] MEDS: Propofol 1000 mg/100 ml Inj 1,000 MG/100 ML BOTTLE IV.CONT PRN ×5 (03:52→19:50)
[2018-01-11] MEDS: Piperacil/Tazo 4.5 GM Premix 4.5 GM/100 ML BAG IV.SIG SCH ×4 (04:28→22:00)
[2018-01-11 04:59] LABS: Albumin 2.2 g/dL (3.4-5.0); Anion Gap 6 meq/L (5-15); Aspartate Aminotransferase 28 U/L (15-37); Blood Urea Nitrogen 5 mg/dL (7-18); Calcium 8.6 mg/dL (8.5-10.1); Carbon Dioxide 27.6 meq/L (21.0-32.0); Chloride 108 meq/L (98-107); Glomerular Filtration Rate Greater Than 89 mL/min (>89); Glucose,Random 86 mg/dL (74-106); Magnesium 1.6 mg/dL (1.5-2.5); Potassium 3.5 meq/L (3.5-5.1); Sodium 142 meq/L (136-145)
[2018-01-11 05:01] LABS: Alanine Aminotransferase 22 U/L (12-78)
[2018-01-11 05:03] LABS: Alkaline Phosphatase 112 U/L (45-117); Total Protein 6.3 g/dL (6.4-8.2)
[2018-01-11] MEDS: Methadone 10 MG Tablet PO SCH ×2 (05:03→15:37)
[2018-01-11] MEDS: Insulin NovoLOG Aspart Correctional Sugar Inj SQ SCH ×4 (05:04→23:46)
[2018-01-11 05:58] LABS: Baso # (Auto) 0.1 th/mm3 (0.0-0.2); Baso % (Auto) 0.9 % (0.0-2.0); Eos # (Auto) 0.2 th/mm3 (0.0-0.4); Eos % (Auto) 2.6 % (0.0-4.0); Hematocrit 38.9 % (39.0-51.0); Hemoglobin 13.5 gm/dL (13.0-17.0); Lymph # (Auto) 1.2 th/mm3 (1.0-4.8); Lymph % (Auto) 13.9 % (9.0-44.0); Mean Corpuscular HGB Conc 34.6 % (32.0-36.0); Mean Corpuscular Hemoglobin 33.7 pg (27.0-34.0); Mean Corpuscular Volume 97.3 fL (80.0-100.0); Mean Platelet Volume 9.1 fL (7.0-11.0); Mono # (Auto) 1.4 th/mm3 (0.0-0.9); Mono % (Auto) 17.1 % (0.0-8.0); Neut # (Auto) 5.5 th/mm3 (1.8-7.7); Neut % (Auto) 65.5 % (16.0-70.0); Platelet Count 220 th/mm3 (150-450); Red Cell Distribution Width 13.2 % (11.6-17.2); White Blood Count 8.4 th/mm3 (4.0-11.0)
[2018-01-11] MEDS: Chlorhexidine 0.12% Oral Kit 15 ML UDC OROPHARYNG SCH ×3 (08:45→20:57)
[2018-01-11] MEDS: Famotidine PF Inj 20 MG/2 ML Vial IV.PUSH SCH ×2 (08:46→20:56)
[2018-01-11] MEDS: Enoxaparin Inj 40 MG/0.4 ML Syringe SQ SCH (08:46)
[2018-01-11] MEDS: Beneprotein Powder Packet G-TUBE SCH ×3 (08:46→18:06)
[2018-01-11] MEDS: Senna/Docusate Sodium 8.6/50 MG Tablet PO SCH ×2 (08:46→20:56)
[2018-01-11] MEDS ORDERED: Pharmacy Ordered Lab Info OTHER ONE (11:45)
[2018-01-11] MEDS: Vancomycin Inj 1,500 MG in Sodium Chlor 0.9% Inj 500 ML IV.SIG SCH (12:15)
--- NOTE | 2018-01-11 13:29 | P.PNID ---
Subjective Remarks: Patient is on the ventilator and is not responsive. He has his eyes open and is staring straight ahead of the ceiling. Not moving the eyes from side to side. Afebrile. White blood cell count is normal. Repeated blood culture is negative. 37-year-old white male who was brought in to the emergency department when he was found down by a friend. The patient was noted to have overdosed on drugs. He was noted to have used IV heroin. In the emergency department, his temperature was normal. Chest x-ray was performed and showed an elevation of the right hemidiaphragm and right lower lobe consolidation versus atelectasis and small to moderate-sized right pleural effusion. The white blood cell count was elevated at 14.3. Blood cultures obtained on admission have Staph coagulase negative. This is present in 4/4 bottles. Past Medical History: PAST MEDICAL HISTORY: Intravenous drug abuse. Allergies/Adverse Reactions: Allergies No Allergy Information Available Allergy (Unverified 01/05/18 03:22) UTO Objective Vital Signs 01/10/18 14:00 01/10/18 15:00 01/10/18 16:00 Temperature 98.0 F 98.4 F Pulse Rate 70 68 70 Respiratory Rate 14 14 14 Blood Pressure 116/74 140/87 142/95 H Pulse Oximetry 93 L 94 L 93 L 01/10/18 17:00 01/10/18 18:00 01/10/18 18:37 Temperature 98.5 F 98.7 F Pulse Rate 70 76 Respiratory Rate 14 14 14 Blood Pressure 126/82 124/75 Pulse Oximetry 91 L 91 L 91 L 01/10/18 19:00 01/10/18 20:00 01/10/18 20:18 Temperature 99.3 F Pulse Rate 79 75 Respiratory Rate 14 14 14 Blood Pressure 121/72 113/65 Pulse Oximetry 90 L 91 L 93 L 01/10/18 20:24 01/10/18 21:00 01/10/18 22:00 Temperature Pulse Rate 72 83 73 Respiratory Rate 14 14 14 Blood Pressure 127/76 118/71 Pulse Oximetry 92 L 93 L 01/10/18 23:00 01/11/18 00:00 01/11/18 01:00 Temperature 97.7 F Pulse Rate 68 65 68 Respiratory Rate 14 14 14 Blood Pressure 114/74 122/83 123/85 Pulse Oximetry 93 L 95 94 L 01/11/18 01:20 01/11/18 02:00 01/11/18 03:00 Temperature Pulse Rate 65 69 Respiratory Rate 14 14 14 Blood Pressure 116/74 121/81 Pulse Oximetry 95 93 L 92 L 01/11/18 04:00 01/11/18 04:10 01/11/18 05:00 Temperature 98.0 F Pulse Rate 69 73 Respiratory Rate 14 14 14 Blood Pressure 120/78 117/70 Pulse Oximetry 92 L 93 L 91 L 01/11/18 06:00 01/11/18 08:04 01/11/18 12:19 Temperature Pulse Rate 75 Respiratory Rate 14 14 14 Blood Pressure 113/64 Pulse Oximetry 94 L 93 L 92 L Intake & Output 01/10/18 01/11/18 01/11/18 18:59 06:59 18:59 Intake Total 1400 / 1400 2930 / 2930 550 / 550 Output Total 150 / 150 1300 / 1300 Balance 1250 / 1250 1630 / 1630 550 / 550 Weight 89.3 kg Intake: IV 700 / 700 1880 / 1880 550 / 550 Diprivan 1000 mg/100 ml Inj 1, 100 / 100 300 / 300 200 / 200 000 mg In 100 ml @ 5 MCG/KG/MIN 2.585 mls/hr IV.CONT TITRATE PRN Rx#:[id number] Zosyn 4.5 GM Premix 4.5 gm In 100 / 100 300 / 300 100 / 100 100 ml @ 200 mls/hr IV.SIG Q6H [facility] Rx#:[id number] Vancomycin Inj 1,500 MG In NS 1030 / 1030 Inj 500 ML @ 250 mls/hr IV.SIG Q12H [facility] Rx#:[id number] fentaNYL 10 mcg/mL Premix Drip 500 / 500 250 / 250 250 / 250 2,500 mcg In 250 ml @ 50 MCG/HR 5 mls/hr IV.SIG TITRATE PRN Rx #:[id number] Oral 0 / 0 Tube Feeding 0 / 0 0 / 0 Tube Irrigant 0 / 0 0 / 0 Water Bolus Amount 700 / 700 1050 / 1050 Output: Stool 0 / 0 Urine Amount (Catheter) 1300 / 1300 Indwelling Urethral Catheter 1300 / 1300 Gastric Drainage 150 / 150 Orogastric Tube 150 / 150 Other: # Bowel Movements 0 01/06/18 10:00 Blood - Peripheral Aerobic Blood Culture - Final No growth in 5 days 01/06/18 10:00 Blood - Peripheral Anaerobic Blood Culture - Final No growth in 5 days 01/06/18 09:50 Blood - Peripheral Aerobic Blood Culture - Final No growth in 5 days 01/06/18 09:50 Blood - Peripheral Anaerobic Blood Culture - Final No growth in 5 days 01/05/18 04:25 Blood - Peripheral Aerobic Blood Culture - Final Staphylococcus haemolyticus 01/05/18 04:25 Blood - Peripheral Anaerobic Blood Culture - Final Staphylococcus coag negative 01/06/18 01:50 Sputum - Endotracheal Gram Stain - Final 01/06/18 01:50 Sputum - Endotracheal Sputum Culture - Final Rare growth normal respiratory alistair 01/05/18 04:15 Blood - Peripheral Aerobic Blood Culture - Final Staphylococcus epidermidis 01/05/18 04:15 Blood - Peripheral Anaerobic Blood Culture - Final Staphylococcus coag negative Lab - Hematology Results 01/10/18 01/11/18 04:37 05:29 WBC 9.8 8.4 RBC 4.27 L 4.00 L Hgb 14.3 13.5 Hct 42.5 38.9 L MCV 99.5 97.3 MCH 33.5 33.7 MCHC 33.6 34.6 RDW 13.5 13.2 Plt Count 182 220 MPV 9.4 9.1 Prelim Diff (Auto) Manual diff required Neut % (Auto) 65.5 Lymph % (Auto) 13.9 [place] % (Auto) 17.1 H Eos % (Auto) 2.6 Baso % (Auto) 0.9 Neut # (Auto) 5.5 Lymph # (Auto) 1.2 [place] # (Auto) 1.4 H Eos # (Auto) 0.2 Baso # (Auto) 0.1 WBC Differential Manual diff final . Seg Neuts % (Manual) 65 Band Neuts % (Manual) 8 H Lymphocytes % (Manual) 10 Monocytes % (Manual) 16 H Eosinophils % (Manual) 1 Abs Neuts (Manual) 7.2 Differential Comment . Auto diff final Toxic Vacuolation Present H Platelet Estimate Normal Platelet Morphology Clumped H Lab - Chemistry Results 01/10/18 01/10/18 01/10/18 00:07 04:37 07:02 Sodium 144 Potassium 3.7 Chloride 109 H Carbon Dioxide 23.3 Anion Gap 12 BUN 8 Creatinine 0.66 Estimated GFR Greater than 89 POC Glucose 79 187 H Random Glucose 66 L Calcium 8.5 Magnesium 1.6 Total Bilirubin 0.7 AST 25 ALT 21 Alkaline Phosphatase 110 Total Protein 6.5 Albumin 2.3 L 01/10/18 01/10/18 01/10/18 18:36 21:26 22:05 Sodium Potassium Chloride Carbon Dioxide Anion Gap BUN Creatinine Estimated GFR POC Glucose 80 72 173 H Random Glucose Calcium Magnesium Total Bilirubin AST ALT Alkaline Phosphatase Total Protein Albumin 01/11/18 01/11/18 01/11/18 01:01 04:25 12:22 Sodium 142 Potassium 3.5 Chloride 108 H Carbon Dioxide 27.6 Anion Gap 6 BUN 5 L Creatinine 0.60 Estimated GFR Greater than 89 POC Glucose 110 96 Random Glucose 86 Calcium 8.6 Magnesium 1.6 Total Bilirubin 0.7 AST 28 ALT 22 Alkaline Phosphatase 112 Total Protein 6.3 L Albumin 2.2 L Imaging: ITS Impressions Head CT 01/05/18 05:01 CONCLUSION: 1. No acute intracranial findings. 2. Air-fluid levels in the right maxillary and sphenoid sinuses suggesting possible acute sinusitis versus air-fluid levels related to intubation.. . Chest X-Ray 01/07/18 15:11 CONCLUSION: 1. Worsening consolidation and a suspected developing hydropneumothorax at the right base. 2. Modest worsening of parenchymal consolidation of the left mid and lower lung. Chest CT 01/08/18 00:00 CONCLUSION: 1. Increasing airspace disease especially in both upper lobes. 2. Persistent dense consolidation in the lower lobes without significant improvement. 3. Increasing right pleural effusion. Physical Exam: PHYSICAL EXAMINATION: GENERAL: On the ventilator and unresponsive. HEENT: The sclerae are nonicteric. Mild scleral edema. Pupils reactive to light. No icterus. Oropharynx intubated. LUNGS: Coarse breath sounds bilaterally. HEART: Regular S1, S2, without murmurs, rubs or gallops. ABDOMEN: Bowel sounds present. Soft. No tenderness appreciated. EXTREMITIES: No clubbing or cyanosis or edema. No embolic lesions visible. SKIN: No diffuse rash. NEUROLOGIC: Unable to assess. PSYCHIATRIC: Unable to assess. Assessment and Plan - Plan IMPRESSION: 1. Pneumonia. 2. Bacteremia due to Staphylococcus coag negative. 3. Acute respiratory failure. 4. Intravenous drug use. 5. Probable aspiration. RECOMMENDATIONS: 1. Continue piperacillin/tazobactam. 2. Continue vancomycin. Pharmacy to manage. 3. Monitor clinical response.
[2018-01-11 14:15] LABS: ABG Base Excess 0.2 mmol/L (-2-2); ABG PCO2 45 mmHg (38-42); ABG PO2 78 mmHg (61-120)
--- NOTE | 2018-01-11 14:34 | P.PNCC ---
Subjective Subjective Remarks/Hospital Course: 37-year-old male who is brought to [facility] emergency department after friends contacted [facility] due to decreased mental status with suspected heroin overdose. He had used heroin earlier in the evening. [facility] reportedly found him laying in emesis with a thready pulse. They gave him sequential doses of Narcan to a total of 2.4 mg IV at which point he became more awake and alert. He then had multiple episodes of vomiting in route. NG tube was placed by the paramedics and they aspirated gastric contents and then removed s NG prior to arrival. His room air sats were reportedly 84% and he was placed on NR. Patient told Dr. Lovett that this was his first time using heroin and that he injected it. CXR demonstrated RLL opacity. He was started on Unasyn for aspiration pneumonia and given nebs. He eventually was intubated due to hypoxia with sats in high 80s despite nonrebreather. [employer] consulted for admission. 01/06: Remains sedated and intubated, requires PEEP 12 and FiO2 70%, will try to wean these today if tolerated. 01/07: Agitated overnight and this morning, 2 episodes where the patient bit down on ETT, desaturated, and became unstable. Not tolerating pressure support trials. 01/08: Remains sedated, orally intubated on mechanical ventilation. PEEP remains at +12. CT chest done today shows worsening consolidations. Pleural effusion. 01/09: Remains critically ill with severe bilateral lower lobe consolidated pneumonias. Requiring markedly elevated mean airway pressure still. Patient is nutritionally depleted and not responding well to our aggressive medical treatment. 01/10: Continued requirements for markedly elevated fractional inspiratory oxygen concentration. Continued dense consolidation in both lower lobes PEEP reduced to avoid overexpansion of upper lobes. 01/11: Converted to airway pressure release ventilation because of inability to oxygenate adequately. We will probably have to add Flolan. Lengthy discussion with family about the severity of his respiratory problems and pneumonia. Objective Vital Signs / I&O: Vital Signs 01/10/18 15:00 01/10/18 16:00 01/10/18 17:00 Temperature 98.4 F 98.5 F Pulse Rate 68 70 70 Respiratory Rate 14 14 14 Blood Pressure 140/87 142/95 H 126/82 Pulse Oximetry 94 L 93 L 91 L 01/10/18 18:00 01/10/18 18:37 01/10/18 19:00 Temperature 98.7 F Pulse Rate 76 79 Respiratory Rate 14 14 14 Blood Pressure 124/75 121/72 Pulse Oximetry 91 L 91 L 90 L 01/10/18 20:00 01/10/18 20:18 01/10/18 20:24 Temperature 99.3 F Pulse Rate 75 72 Respiratory Rate 14 14 14 Blood Pressure 113/65 Pulse Oximetry 91 L 93 L 01/10/18 21:00 01/10/18 22:00 01/10/18 23:00 Temperature Pulse Rate 83 73 68 Respiratory Rate 14 14 14 Blood Pressure 127/76 118/71 114/74 Pulse Oximetry 92 L 93 L 93 L 01/11/18 00:00 01/11/18 01:00 01/11/18 01:20 Temperature 97.7 F Pulse Rate 65 68 Respiratory Rate 14 14 14 Blood Pressure 122/83 123/85 Pulse Oximetry 95 94 L 95 01/11/18 02:00 01/11/18 03:00 01/11/18 04:00 Temperature 98.0 F Pulse Rate 65 69 69 Respiratory Rate 14 14 14 Blood Pressure 116/74 121/81 120/78 Pulse Oximetry 93 L 92 L 92 L 01/11/18 04:10 01/11/18 05:00 01/11/18 06:00 Temperature Pulse Rate 73 75 Respiratory Rate 14 14 14 Blood Pressure 117/70 113/64 Pulse Oximetry 93 L 91 L 94 L 01/11/18 07:00 01/11/18 08:00 01/11/18 08:04 Temperature 99.1 F Pulse Rate 75 75 Respiratory Rate 14 14 14 Blood Pressure 111/69 111/65 Pulse Oximetry 93 L 93 L 93 L 01/11/18 09:00 01/11/18 10:00 01/11/18 11:00 Temperature Pulse Rate 78 77 80 Respiratory Rate 14 14 14 Blood Pressure 115/70 114/68 113/68 Pulse Oximetry 93 L 93 L 93 L 01/11/18 12:00 01/11/18 12:03 01/11/18 12:19 Temperature 99.7 F H Pulse Rate 81 81 Respiratory Rate 14 14 14 Blood Pressure 112/64 Pulse Oximetry 92 L 92 L 92 L 01/11/18 13:00 Temperature Pulse Rate 113 H Respiratory Rate 27 H Blood Pressure 166/83 H Pulse Oximetry 86 L Intake & Output 01/10/18 01/11/18 01/11/18 18:59 06:59 18:59 Intake Total 1400 / 1400 2930 / 2930 550 / 550 Output Total 150 / 150 1300 / 1300 Balance 1250 / 1250 1630 / 1630 550 / 550 Weight 89.3 kg Intake: IV 700 / 700 1880 / 1880 550 / 550 Diprivan 1000 mg/100 ml Inj 1, 100 / 100 300 / 300 200 / 200 000 mg In 100 ml @ 5 MCG/KG/MIN 2.585 mls/hr IV.CONT TITRATE PRN Rx#:[id number] Zosyn 4.5 GM Premix 4.5 gm In 100 / 100 300 / 300 100 / 100 100 ml @ 200 mls/hr IV.SIG Q6H [facility] Rx#:[id number] Vancomycin Inj 1,500 MG In NS 1030 / 1030 Inj 500 ML @ 250 mls/hr IV.SIG Q12H [facility] Rx#:[id number] fentaNYL 10 mcg/mL Premix Drip 500 / 500 250 / 250 250 / 250 2,500 mcg In 250 ml @ 50 MCG/HR 5 mls/hr IV.SIG TITRATE PRN Rx #:[id number] Oral 0 / 0 Tube Feeding 0 / 0 0 / 0 Tube Irrigant 0 / 0 0 / 0 Water Bolus Amount 700 / 700 1050 / 1050 Output: Stool 0 / 0 Urine Amount (Catheter) 1300 / 1300 Indwelling Urethral Catheter 1300 / 1300 Gastric Drainage 150 / 150 Orogastric Tube 150 / 150 Other: # Bowel Movements 0 Result Diagrams: 01/11/18 05:29 01/11/18 04:25 Objective Remarks: GEN: Intubated and sedated, ill appearing HEENT: NCAT, pupils 2mm, reactive to light NECK: Trachea midline, orotracheal intubation, neck supple CARDIO: Regular rate and rhythm, no JVD. PULM: Air entry markedly decreased bilaterally at bases. Bilateral rhonchi and mobile secretions persist. ABD/GI: Soft, non-distended. No guarding, bowel sounds are active. EXT/MSK: 1+ peripheral edema, warm, adequately perfused. SKIN: No rashes or lesions NEURO: Sedated, orally intubated on mechanical ventilation. Withdraws 4 limbs to noxious stimulation. Opens eyes but does not track. Attempts to squeeze with left hand. Assessment and Plan - Problem List (1) Heroin overdose Code(s): T40.1X1A - Poisoning by heroin, accidental (unintentional), initial encounter Status: Acute (2) Polysubstance abuse Code(s): F19.10 - Other psychoactive substance abuse, uncomplicated Status: Chronic (3) Cocaine abuse Code(s): F14.10 - Cocaine abuse, uncomplicated Status: Acute (4) Elevated ETOH level Code(s): R78.0 - Finding of alcohol in blood Status: Acute (5) Marijuana abuse Code(s): F12.10 - Cannabis abuse, uncomplicated Status: Acute (6) TORREY (acute kidney injury) Code(s): N17.9 - Acute kidney failure, unspecified Status: Acute (7) Severe sepsis Code(s): A41.9 - Sepsis, unspecified organism; R65.20 - Severe sepsis without septic shock Status: Acute (8) Acute respiratory failure with hypoxia Code(s): J96.01 - Acute respiratory failure with hypoxia Status: Acute (9) Aspiration pneumonia Code(s): J69.0 - Pneumonitis due to inhalation of food and vomit Status: Acute (10) Vomiting Code(s): R11.10 - Vomiting, unspecified Status: Acute (11) Hyperglycemia Code(s): R73.9 - Hyperglycemia, unspecified Status: Acute (12) Protein-calorie malnutrition, moderate Code(s): E44.0 - Moderate protein-calorie malnutrition Status: Acute - Assessment and Plan Plan: NEURO: Heroin overdose Polysubstance abuse (marijuana, opiate, cocaine) Alcohol level was 61 on admission. Propofol and fentanyl for sedation-- PRN ativan and precedex gtt as patient becomes extremely agitated with even slight drop in sedation Thiamine/multivitamin supplementation CT negative Tolerance to narcotic analgesia implies chronic narcotic use We may need to start methadone to wean fentanyl. RESP: Acute hypoxemic respiratory failure Acute aspiration pneumonia Intubated in ED 01/05 due to hypoxia. PRVC with ventilator bundle, would like to continue spontaneous breathing trials when sedation regimen is changed. PEEP 12 DuoNeb every 6 hours. Albuterol every 2 hours as needed. CXR shows RLL opacity, likely aspiration pneumonia (see below) CT chest with dense bilateral basilar consolidations and small right pleural effusion CV: Telemetry and BP monitoring in ICU GI: Vomiting - likely secondary to opioid withdrawal Continue TFs at goal Zofran prn. FEN/RENAL: TORREY - suspect pre-renal secondary to overdose and sepsis, improving CPK is normal Urine output adequate D/C maintenance fluids ID: Severe Sepsis secondary to aspiration pneumonia Continue Unasyn for aspiration. MRSA swab negative Blood cultures from 01/05 growing staph epidermidis in both bottles, repeat cultures sent 01/06 no growth at 1 day * Start on vancomycin yesterday when prelim results showed staph, now identified as not MRSA, stopped on 01/07 Consult ID for antibiotic management in view of worsening respiratory status/ sepsis. HEME: No acute hematologic issues. Coags are normal. ENDO: Acute hyperglycemia Monitor bedside glucose every 6 hours and administer low-dose insulin sliding scale as indicated. Poor control continues PROPH: -PPI -SCDs/ lovenox ACCESS: Peripheral IV in left EJ OVERALL: This patient remains critically ill requiring ventilator support for aspiration pneumonia and heroin drug overdose. He requires continued ICU level of care. His early response to aggressive medical therapy has been poor, undoubtedly related to chronic debilitation and poor baseline nutritional status. His long-term prognosis is guarded, largely due to concerns about his nutritional and immune status. Critical care time 42 minutes aside from procedures.
[2018-01-11] MEDS ORDERED: EPOPROSTENOL NEB SCH (14:45)
[2018-01-11] MEDS: Epoprostenol (30,000/mL) Neb 100 ML in Sodium Chlor 0.9% Inj 0 ML NEB SCH ×2 (16:40→23:45)
[2018-01-11] MEDS: Ampicillin/Sulbactam Inj 3 GM in Sodium Chloride 0.9% Inj 100 ML IV.SIG SCH (21:23)
[2018-01-11] MEDS: Vancomycin Inj 1,750 MG in Sodium Chlor 0.9% Inj 500 ML IV.SIG SCH (23:45)
[2018-01-12] MEDS: Propofol 1000 mg/100 ml Inj 1,000 MG/100 ML BOTTLE IV.CONT PRN ×7 (03:29→23:48)
[2018-01-12] MEDS: Methadone 10 MG Tablet PO SCH ×2 (03:30→15:37)
[2018-01-12] MEDS: Oral Hygiene Kit OROPHARYNG SCH ×6 (03:30→17:01)
[2018-01-12] MEDS: Piperacil/Tazo 4.5 GM Premix 4.5 GM/100 ML BAG IV.SIG SCH ×4 (04:18→22:24)
[2018-01-12 04:36] LABS: ABG Base Excess 1.9 mmol/L (-2-2); ABG PCO2 58 mmHg (38-42); ABG PO2 109 mmHg (61-120)
[2018-01-12 05:12] LABS: Baso # (Auto) 0.1 th/mm3 (0.0-0.2); Baso % (Auto) 0.5 % (0.0-2.0); Eos # (Auto) 0.1 th/mm3 (0.0-0.4); Hematocrit 37.1 % (39.0-51.0); Hemoglobin 12.8 gm/dL (13.0-17.0); Lymph # (Auto) 0.9 th/mm3 (1.0-4.8); Lymph % (Auto) 9.1 % (9.0-44.0); Mean Corpuscular HGB Conc 34.6 % (32.0-36.0); Mean Corpuscular Hemoglobin 33.6 pg (27.0-34.0); Mean Corpuscular Volume 97.1 fL (80.0-100.0); Mean Platelet Volume 8.9 fL (7.0-11.0); Mono # (Auto) 1.8 th/mm3 (0.0-0.9); Mono % (Auto) 18.7 % (0.0-8.0); Neut # (Auto) 6.9 th/mm3 (1.8-7.7); Neut % (Auto) 70.7 % (16.0-70.0); Platelet Count 263 th/mm3 (150-450); Red Blood Count 3.82 mil/mm3 (4.50-5.90); Red Cell Distribution Width 13.2 % (11.6-17.2); White Blood Count 9.8 th/mm3 (4.0-11.0)
[2018-01-12 05:29] LABS: Albumin 2.3 g/dL (3.4-5.0); Anion Gap 6 meq/L (5-15); Aspartate Aminotransferase 32 U/L (15-37); Blood Urea Nitrogen 12 mg/dL (7-18); Calcium 8.6 mg/dL (8.5-10.1); Carbon Dioxide 28.7 meq/L (21.0-32.0); Chloride 104 meq/L (98-107); Glomerular Filtration Rate Greater Than 89 mL/min (>89); Glucose,Random 116 mg/dL (74-106); Potassium 3.7 meq/L (3.5-5.1); Sodium 139 meq/L (136-145)
[2018-01-12 05:31] LABS: Alanine Aminotransferase 22 U/L (12-78)
[2018-01-12 05:33] LABS: Alkaline Phosphatase 108 U/L (45-117); Total Protein 6.7 g/dL (6.4-8.2)
[2018-01-12] MEDS: Insulin NovoLOG Aspart Correctional Sugar Inj SQ SCH ×3 (05:38→18:31)
[2018-01-12] MEDS: fentaNYL 10 mcg/mL Premix Drip 2,500 MCG/250 ML BAG IV.SIG PRN ×2 (06:45→16:30)
--- NOTE | 2018-01-12 08:10 | P.PNCC ---
Subjective Subjective Remarks/Hospital Course: 37-year-old male who is brought to [facility] emergency department after friends contacted [facility] due to decreased mental status with suspected heroin overdose. He had used heroin earlier in the evening. [facility] reportedly found him laying in emesis with a thready pulse. They gave him sequential doses of Narcan to a total of 2.4 mg IV at which point he became more awake and alert. He then had multiple episodes of vomiting in route. NG tube was placed by the paramedics and they aspirated gastric contents and then removed s NG prior to arrival. His room air sats were reportedly 84% and he was placed on NR. Patient told Dr. Lovett that this was his first time using heroin and that he injected it. CXR demonstrated RLL opacity. He was started on Unasyn for aspiration pneumonia and given nebs. He eventually was intubated due to hypoxia with sats in high 80s despite nonrebreather. [employer] consulted for admission. 01/06: Remains sedated and intubated, requires PEEP 12 and FiO2 70%, will try to wean these today if tolerated. 01/07: Agitated overnight and this morning, 2 episodes where the patient bit down on ETT, desaturated, and became unstable. Not tolerating pressure support trials. 01/08: Remains sedated, orally intubated on mechanical ventilation. PEEP remains at +12. CT chest done today shows worsening consolidations. Pleural effusion. 01/09: Remains critically ill with severe bilateral lower lobe consolidated pneumonias. Requiring markedly elevated mean airway pressure still. Patient is nutritionally depleted and not responding well to our aggressive medical treatment. 01/10: Continued requirements for markedly elevated fractional inspiratory oxygen concentration. Continued dense consolidation in both lower lobes PEEP reduced to avoid overexpansion of upper lobes. 01/11: Converted to airway pressure release ventilation because of inability to oxygenate adequately. We will probably have to add Flolan. Lengthy discussion with family about the severity of his respiratory problems and pneumonia. 01/12: Some progress but remains with high A-aO2 gradient. ET tube above clavicles; repositioned. Copious foul secretions. High requirement requirements for analgesia and sedation due to alcohol history. Will continue methadone and start scheduled Librium in an attempt to lower the intravenous requirements. Objective Vital Signs / I&O: Vital Signs 01/11/18 09:00 01/11/18 10:00 01/11/18 11:00 Temperature Pulse Rate 78 77 80 Respiratory Rate 14 14 14 Blood Pressure 115/70 114/68 113/68 Pulse Oximetry 93 L 93 L 93 L 01/11/18 12:00 01/11/18 12:03 01/11/18 12:19 Temperature 99.7 F H Pulse Rate 81 81 Respiratory Rate 14 14 14 Blood Pressure 112/64 Pulse Oximetry 92 L 92 L 92 L 01/11/18 13:00 01/11/18 14:00 01/11/18 15:00 Temperature Pulse Rate 113 H 114 H 110 H Respiratory Rate 27 H 20 21 Blood Pressure 166/83 H 175/96 H 155/90 H Pulse Oximetry 86 L 91 L 92 L 01/11/18 16:00 01/11/18 16:01 01/11/18 16:06 Temperature 100.0 F H Pulse Rate 106 H 116 H Respiratory Rate 23 28 H 15 Blood Pressure 170/116 H 172/106 H Pulse Oximetry 92 L 91 L 92 L 01/11/18 17:00 01/11/18 18:00 01/11/18 19:00 Temperature 99.9 F H Pulse Rate 130 H 127 H 97 H Respiratory Rate 20 27 H 18 Blood Pressure 178/109 H 164/106 H 126/70 Pulse Oximetry 94 L 95 94 L 01/11/18 20:00 01/11/18 20:49 01/11/18 21:00 Temperature Pulse Rate 80 88 Respiratory Rate 18 11 L 14 Blood Pressure 112/66 137/90 Pulse Oximetry 95 97 95 01/11/18 22:00 01/11/18 23:00 01/11/18 23:46 Temperature Pulse Rate 96 H 90 Respiratory Rate 19 10 L 11 L Blood Pressure 144/80 H 117/68 Pulse Oximetry 93 L 91 L 92 L 01/12/18 00:00 01/12/18 01:00 01/12/18 02:00 Temperature 98.7 F Pulse Rate 84 91 H 93 H Respiratory Rate 10 L 20 10 L Blood Pressure 122/75 144/99 H 128/72 Pulse Oximetry 94 L 92 L 96 01/12/18 03:00 01/12/18 04:00 01/12/18 04:10 Temperature 99.0 F Pulse Rate 85 79 Respiratory Rate 10 L 9 L 10 L Blood Pressure 105/83 122/68 Pulse Oximetry 96 95 95 11/27/18 05:00 01/12/18 06:00 Temperature Pulse Rate 77 75 Respiratory Rate 10 L 10 L Blood Pressure 116/70 118/71 Pulse Oximetry 95 93 L Intake & Output 01/11/18 01/12/18 01/12/18 18:59 06:59 18:59 Intake Total 2047 / 2047 3037.5 / 3037.5 Output Total 2099 600 / 600 Balance -52 / -52 2437.5 / 2437.5 Weight 89.7 kg Intake: IV 1265 / 1265 1587.5 / 1587.5 Diprivan 1000 mg/100 ml Inj 1, 300 / 300 300 / 300 000 mg In 100 ml @ 5 MCG/KG/MIN 2.585 mls/hr IV.CONT TITRATE PRN Rx#:[id number] Zosyn 4.5 GM Premix 4.5 gm In 200 / 200 200 / 200 100 ml @ 200 mls/hr IV.SIG Q6H VU Rx#:[id number] Vancomycin Inj 1,750 MG In NS 515 / 515 517.5 / 517.5 Inj 500 ML @ 250 mls/hr IV.SIG Q12H VU Rx#:[id number] fentaNYL 10 mcg/mL Premix Drip 250 / 250 500 / 500 2,500 mcg In 250 ml @ 50 MCG/HR 5 mls/hr IV.SIG TITRATE PRN Rx #:[id number] Flolan (30,000 ng/mL) Neb 100 70 / 70 ML In NS Inj 0 ML @ 5 mls/hr NEB Q8H VU Rx#:[id number] Oral 0 / 0 Tube Feeding 83 / 83 300 / 300 Water Bolus Amount 700 / 700 1150 / 1150 Output: Stool 0 / 0 Urine Amount (Catheter) 2099 600 / 600 Indwelling Urethral Catheter 2099 600 / 600 Other: # Bowel Movements 0 Result Diagrams: 01/12/18 04:53 01/12/18 04:53 Objective Remarks: GEN: Intubated and sedated, ill appearing HEENT: NCAT, pupils 2mm, reactive to light NECK: Trachea midline, orotracheal intubation, neck supple CARDIO: Regular rate and rhythm, NL S1S2, no JVD. PULM: Air entry markedly decreased bilaterally at bases. Profuse bilateral rhonchi and many mobile secretions persist. ABD/GI: Soft, non-distended. No guarding, bowel sounds are active. EXT/MSK: 1+ peripheral edema, warm, adequately perfused. SKIN: No rashes or lesions, clammy. NEURO: Sedated, orally intubated on mechanical ventilation. Withdraws 4 limbs to noxious stimulation. Opens eyes but does not track. Attempts to squeeze with left hand.Strong cough and gag reflex. Assessment and Plan - Problem List (1) Heroin overdose Code(s): T40.1X1A - Poisoning by heroin, accidental (unintentional), initial encounter Status: Acute (2) Polysubstance abuse Code(s): F19.10 - Other psychoactive substance abuse, uncomplicated Status: Chronic (3) Cocaine abuse Code(s): F14.10 - Cocaine abuse, uncomplicated Status: Acute (4) Elevated ETOH level Code(s): R78.0 - Finding of alcohol in blood Status: Acute (5) Marijuana abuse Code(s): F12.10 - Cannabis abuse, uncomplicated Status: Acute (6) TORREY (acute kidney injury) Code(s): N17.9 - Acute kidney failure, unspecified Status: Acute (7) Severe sepsis Code(s): A41.9 - Sepsis, unspecified organism; R65.20 - Severe sepsis without septic shock Status: Acute (8) Acute respiratory failure with hypoxia Code(s): J96.01 - Acute respiratory failure with hypoxia Status: Acute (9) Aspiration pneumonia Code(s): J69.0 - Pneumonitis due to inhalation of food and vomit Status: Acute (10) Vomiting Code(s): R11.10 - Vomiting, unspecified Status: Acute (11) Hyperglycemia Code(s): R73.9 - Hyperglycemia, unspecified Status: Acute (12) Protein-calorie malnutrition, moderate Code(s): E44.0 - Moderate protein-calorie malnutrition Status: Acute - Assessment and Plan Plan: NEURO: Heroin overdose Polysubstance abuse (marijuana, opiate, cocaine) Alcohol level was 61 on admission. Propofol and fentanyl for sedation-- PRN ativan and precedex gtt as patient becomes extremely agitated with even slight drop in sedation Thiamine/multivitamin supplementation CTH negative Tolerance to narcotic analgesia implies chronic narcotic use We may need to start methadone to wean fentanyl. RESP: Acute hypoxemic respiratory failure Acute aspiration pneumonia Intubated in ED 01/05 due to hypoxia. PRVC with ventilator bundle, would like to continue spontaneous breathing trials when sedation regimen is changed. PEEP 12 DuoNeb every 6 hours. Albuterol every 2 hours as needed. CXR shows RLL opacity, likely aspiration pneumonia (see below) CT chest with dense bilateral basilar consolidations and small right pleural effusion CV: Telemetry and BP monitoring in ICU GI: Vomiting - likely secondary to opioid withdrawal Continue TFs at goal Zofran prn. FEN/RENAL: TORREY - suspect pre-renal secondary to overdose and sepsis, improving CPK is normal Urine output adequate D/C maintenance fluids ID: Severe Sepsis secondary to aspiration pneumonia Continue Unasyn for aspiration. MRSA swab negative Blood cultures from 01/05 growing staph epidermidis in both bottles, repeat cultures sent 01/06 no growth at 1 day * Start on vancomycin yesterday when prelim results showed staph, now identified as not MRSA, stopped on 01/07 Consult ID for antibiotic management in view of worsening respiratory status/ sepsis. HEME: No acute hematologic issues. Coags are normal. ENDO: Acute hyperglycemia Monitor bedside glucose every 6 hours and administer low-dose insulin sliding scale as indicated. Poor control continues PROPH: -PPI -SCDs/ lovenox ACCESS: Peripheral IV in left EJ OVERALL: This patient remains critically ill requiring ventilator support for aspiration pneumonia and heroin drug overdose. He requires continued ICU level of care. His early response to aggressive medical therapy has been poor, undoubtedly related to chronic debilitation and poor baseline nutritional status. His long-term prognosis is guarded, largely due to concerns about his nutritional and immune status. Critical care time 42 minutes aside from procedures.
[2018-01-12] MEDS: Chlorhexidine 0.12% Oral Kit 15 ML UDC OROPHARYNG SCH ×4 (08:40→20:54)
--- NOTE | 2018-01-12 09:01 | XR ---
EXAM DATE: 01/12/2018 8:57 AM EST AGE/SEX: 37 years / Male INDICATIONS: Evaluate et tube placement. CLINICAL DATA: This is the patient's subsequent encounter. Patient reports that signs and symptoms h ave been present for 1 week and indicates a pain score of Nonresponsive. MEDICAL/SURGICAL HISTORY: Non-responsive. Non-responsive. COMPARISON: [facility], CHEST 1V SINGLE AP, 01/07/2018. . FINDINGS: The ET tube is in good position. The nasogastric tube present. There are bilateral parenchymal infilt rates most notably in the right lower lobe. These are unchanged when compared to previous examination . There is right basilar effusion again stable compared to prior. The heart is normal in size. Visualized bony structures are intact. CONCLUSION: 1. ET tube in good position. 2. Extensive bibasilar infiltrates worse on the right than the left. 3. Stable appearance of the pulmonary parenchyma compared to previous. Electronically signed by: Ramin Ayala MD 01/12/2018 9:00 AM EST
[2018-01-12] MEDS: Enoxaparin Inj 40 MG/0.4 ML Syringe SQ SCH (09:38)
[2018-01-12] MEDS: Beneprotein Powder Packet G-TUBE SCH ×3 (09:38→17:01)
[2018-01-12] MEDS: Famotidine PF Inj 20 MG/2 ML Vial IV.PUSH SCH ×2 (09:39→20:54)
[2018-01-12] MEDS: Senna/Docusate Sodium 8.6/50 MG Tablet PO SCH ×2 (09:39→20:55)
[2018-01-12] MEDS: Epoprostenol (30,000/mL) Neb 100 ML in Sodium Chlor 0.9% Inj 0 ML NEB SCH ×3 (11:20→23:52)
[2018-01-12] MEDS: Vancomycin Inj 1,750 MG in Sodium Chlor 0.9% Inj 500 ML IV.SIG SCH ×2 (11:25→23:03)
--- NOTE | 2018-01-12 15:08 | P.PNID ---
Subjective Remarks: Patient is on the ventilator and is not responsive. Copious secretions noted. White blood cell count is normal. Afebrile. 37-year-old white male who was brought in to the emergency department when he was found down by a friend. The patient was noted to have overdosed on drugs. He was noted to have used IV heroin. In the emergency department, his temperature was normal. Chest x-ray was performed and showed an elevation of the right hemidiaphragm and right lower lobe consolidation versus atelectasis and small to moderate-sized right pleural effusion. The white blood cell count was elevated at 14.3. Blood cultures obtained on admission have Staph coagulase negative. This is present in 4/4 bottles. Past Medical History: PAST MEDICAL HISTORY: Intravenous drug abuse. Allergies/Adverse Reactions: Allergies No Allergy Information Available Allergy (Unverified 01/05/18 03:22) UTO Objective Vital Signs 01/11/18 16:00 01/11/18 16:01 01/11/18 16:06 Temperature 100.0 F H Pulse Rate 106 H 116 H Respiratory Rate 23 28 H 15 Blood Pressure 170/116 H 172/106 H Pulse Oximetry 92 L 91 L 92 L 01/11/18 17:00 01/11/18 18:00 01/11/18 19:00 Temperature 99.9 F H Pulse Rate 130 H 127 H 97 H Respiratory Rate 20 27 H 18 Blood Pressure 178/109 H 164/106 H 126/70 Pulse Oximetry 94 L 95 94 L 01/11/18 20:00 01/11/18 20:49 01/11/18 21:00 Temperature Pulse Rate 80 88 Respiratory Rate 18 11 L 14 Blood Pressure 112/66 137/90 Pulse Oximetry 95 97 95 01/11/18 22:00 01/11/18 23:00 01/11/18 23:46 Temperature Pulse Rate 96 H 90 Respiratory Rate 19 10 L 11 L Blood Pressure 144/80 H 117/68 Pulse Oximetry 93 L 91 L 92 L 01/12/18 00:00 01/12/18 01:00 01/12/18 02:00 Temperature 98.7 F Pulse Rate 84 91 H 93 H Respiratory Rate 10 L 20 10 L Blood Pressure 122/75 144/99 H 128/72 Pulse Oximetry 94 L 92 L 96 01/12/18 03:00 01/12/18 04:00 01/12/18 04:10 Temperature 99.0 F Pulse Rate 85 79 Respiratory Rate 10 L 9 L 10 L Blood Pressure 105/83 122/68 Pulse Oximetry 96 95 95 01/12/18 05:00 01/12/18 06:00 01/12/18 07:00 Temperature Pulse Rate 77 75 79 Respiratory Rate 10 L 10 L 10 L Blood Pressure 116/70 118/71 121/76 Pulse Oximetry 95 93 L 93 L 01/12/18 08:00 01/12/18 08:09 01/12/18 09:00 Temperature 99.7 F H Pulse Rate 85 78 Respiratory Rate 10 L 10 L 0 L Blood Pressure 124/75 130/81 Pulse Oximetry 94 L 95 96 01/12/18 10:00 01/12/18 11:00 01/12/18 11:36 Temperature Pulse Rate 97 H 90 Respiratory Rate 11 L 0 L 10 L Blood Pressure 137/92 H 130/80 Pulse Oximetry 96 94 L 98 01/12/18 12:00 01/12/18 13:00 Temperature 99.9 F H Pulse Rate 89 85 Respiratory Rate 10 L 10 L Blood Pressure 131/86 130/74 Pulse Oximetry 96 95 Intake & Output 01/11/18 01/12/18 01/12/18 18:59 06:59 18:59 Intake Total 2048 / 2048 3037.5 / 3037.5 400 / 400 Output Total 2100 / 2100 600 / 600 Balance -52 / -52 2437.5 / 2437.5 400 / 400 Weight 89.7 kg Intake: IV 1265 / 1265 1587.5 / 1587.5 400 / 400 Diprivan 1000 mg/100 ml Inj 1, 300 / 300 300 / 300 200 / 200 000 mg In 100 ml @ 5 MCG/KG/MIN 2.585 mls/hr IV.CONT TITRATE PRN Rx#:[id number] Zosyn 4.5 GM Premix 4.5 gm In 200 / 200 200 / 200 100 / 100 100 ml @ 200 mls/hr IV.SIG Q6H VU Rx#:[id number] Vancomycin Inj 1,750 MG In NS 515 / 515 517.5 / 517.5 Inj 500 ML @ 250 mls/hr IV.SIG Q12H VU Rx#:[id number] fentaNYL 10 mcg/mL Premix Drip 250 / 250 500 / 500 2,500 mcg In 250 ml @ 50 MCG/HR 5 mls/hr IV.SIG TITRATE PRN Rx #:[id number] Flolan (30,000 ng/mL) Neb 100 70 / 70 100 / 100 ML In NS Inj 0 ML @ 5 mls/hr NEB Q8H VU Rx#:[id number] Oral 0 / 0 Tube Feeding 83 / 83 300 / 300 Water Bolus Amount 700 / 700 1150 / 1150 Output: Stool 0 / 0 Urine Amount (Catheter) 2099 600 / 600 Indwelling Urethral Catheter 2099 600 / 600 Other: # Bowel Movements 0 01/06/18 10:00 Blood - Peripheral Aerobic Blood Culture - Final No growth in 5 days 01/06/18 10:00 Blood - Peripheral Anaerobic Blood Culture - Final No growth in 5 days 01/06/18 09:50 Blood - Peripheral Aerobic Blood Culture - Final No growth in 5 days 01/06/18 09:50 Blood - Peripheral Anaerobic Blood Culture - Final No growth in 5 days 01/05/18 04:25 Blood - Peripheral Aerobic Blood Culture - Final Staphylococcus haemolyticus 01/05/18 04:25 Blood - Peripheral Anaerobic Blood Culture - Final Staphylococcus coag negative Lab - Hematology Results 01/11/18 01/12/18 05:29 04:53 WBC 8.4 9.8 RBC 4.00 L 3.82 L Hgb 13.5 12.8 L Hct 38.9 L 37.1 L MCV 97.3 97.1 MCH 33.7 33.6 MCHC 34.6 34.6 RDW 13.2 13.2 Plt Count 220 263 MPV 9.1 8.9 Neut % (Auto) 65.5 70.7 H Lymph % (Auto) 13.9 9.1 [place] % (Auto) 17.1 H 18.7 H Eos % (Auto) 2.6 1.0 Baso % (Auto) 0.9 0.5 Neut # (Auto) 5.5 6.9 Lymph # (Auto) 1.2 0.9 L [place] # (Auto) 1.4 H 1.8 H Eos # (Auto) 0.2 0.1 Baso # (Auto) 0.1 0.1 WBC Differential . . Differential Comment Auto diff final Auto diff final Lab - Chemistry Results 01/10/18 01/10/18 01/10/18 18:36 21:26 22:05 Sodium Potassium Chloride Carbon Dioxide Anion Gap BUN Creatinine Estimated GFR POC Glucose 80 72 173 H Random Glucose Calcium Magnesium Total Bilirubin AST ALT Alkaline Phosphatase Total Protein Albumin 01/11/18 01/11/18 01/11/18 01:01 04:25 12:22 Sodium 142 Potassium 3.5 Chloride 108 H Carbon Dioxide 27.6 Anion Gap 6 BUN 5 L Creatinine 0.60 Estimated GFR Greater than 89 POC Glucose 110 96 Random Glucose 86 Calcium 8.6 Magnesium 1.6 Total Bilirubin 0.7 AST 28 ALT 22 Alkaline Phosphatase 112 Total Protein 6.3 L Albumin 2.2 L 01/11/18 01/11/18 01/12/18 18:12 23:30 04:53 Sodium 139 Potassium 3.7 Chloride 104 Carbon Dioxide 28.7 Anion Gap 6 BUN 12 Creatinine 0.73 Estimated GFR Greater than 89 POC Glucose 103 100 Random Glucose 116 H Calcium 8.6 Magnesium Total Bilirubin 0.7 AST 32 ALT 22 Alkaline Phosphatase 108 Total Protein 6.7 Albumin 2.3 L 01/12/18 12:50 Sodium Potassium Chloride Carbon Dioxide Anion Gap BUN Creatinine Estimated GFR POC Glucose 114 H Random Glucose Calcium Magnesium Total Bilirubin AST ALT Alkaline Phosphatase Total Protein Albumin Imaging: ITS Impressions Head CT 01/05/18 05:01 CONCLUSION: 1. No acute intracranial findings. 2. Air-fluid levels in the right maxillary and sphenoid sinuses suggesting possible acute sinusitis versus air-fluid levels related to intubation.. . Chest CT 01/08/18 00:00 CONCLUSION: 1. Increasing airspace disease especially in both upper lobes. 2. Persistent dense consolidation in the lower lobes without significant improvement. 3. Increasing right pleural effusion. Chest X-Ray 01/12/18 00:00 CONCLUSION: 1. ET tube in good position. 2. Extensive bibasilar infiltrates worse on the right than the left. 3. Stable appearance of the pulmonary parenchyma compared to previous. Physical Exam: PHYSICAL EXAMINATION: GENERAL: On the ventilator and unresponsive. HEENT: The sclerae are nonicteric. Mild scleral edema. Pupils reactive to light. No icterus. Oropharynx intubated. LUNGS: Coarse breath sounds bilaterally. HEART: Regular S1, S2, without murmurs, rubs or gallops. ABDOMEN: Bowel sounds present. Soft. No tenderness appreciated. EXTREMITIES: No clubbing or cyanosis or edema. No embolic lesions visible. SKIN: No diffuse rash. NEUROLOGIC: Unable to assess. PSYCHIATRIC: Unable to assess. Assessment and Plan - Plan IMPRESSION: 1. Pneumonia. 2. Bacteremia due to Staphylococcus coag negative. 3. Acute respiratory failure. 4. Intravenous drug use. 5. Probable aspiration. RECOMMENDATIONS: 1. Continue piperacillin/tazobactam. 2. Continue vancomycin. 3. Monitor temperature. 4. Monitor clinical response.
[2018-01-12 17:00] LABS: ABG Base Excess 4.5 mmol/L (-2-2); ABG PCO2 43 mmHg (38-42); ABG PO2 97 mmHg (61-120)
[2018-01-12] MEDS: chlordiazePOXIDE 25 MG Capsule PO SCH (18:10)
--- NOTE | 2018-01-12 21:55 | XR ---
EXAM DATE: 01/12/2018 9:51 PM EST AGE/SEX: 37 years / Male INDICATIONS: Ileus. CLINICAL DATA: This is the patient's initial encounter. Patient reports that signs and symptoms have been present for 1 day and indicates a pain score of Nonresponsive. MEDICAL/SURGICAL HISTORY: Non-responsive. Non-responsive. COMPARISON: No prior exams available for comparison. FINDINGS: The abdominal bowel gas pattern is normal. No abnormal masses, calcifications, or organomegaly is s een. The osseous structures are unremarkable. Nasogastric tube within the stomach. CONCLUSION: Normal bowel gas pattern. No concerning calcifications seen. Electronically signed by: Alvarado Marshall MD 01/12/2018 9:54 PM EST
[2018-01-13] MEDS: Insulin NovoLOG Aspart Correctional Sugar Inj SQ SCH ×4 (00:28→17:15)
[2018-01-13] MEDS: Oral Hygiene Kit OROPHARYNG SCH ×8 (00:29→16:19)
[2018-01-13] MEDS: Methadone 10 MG Tablet PO SCH ×2 (02:03→14:01)
[2018-01-13] MEDS: chlordiazePOXIDE 25 MG Capsule PO SCH ×3 (02:03→17:06)
[2018-01-13 04:00] LABS: ABG Base Excess 4.3 mmol/L (-2-2); ABG PCO2 39 mmHg (38-42); ABG PO2 90 mmHg (61-120)
[2018-01-13] MEDS: Propofol 1000 mg/100 ml Inj 1,000 MG/100 ML BOTTLE IV.CONT PRN ×6 (04:06→23:37)
[2018-01-13] MEDS: Piperacil/Tazo 4.5 GM Premix 4.5 GM/100 ML BAG IV.SIG SCH ×4 (04:09→23:36)
[2018-01-13 05:14] LABS: Baso # (Auto) 0.1 th/mm3 (0.0-0.2); Baso % (Auto) 0.5 % (0.0-2.0); Eos # (Auto) 0.1 th/mm3 (0.0-0.4); Eos % (Auto) 0.6 % (0.0-4.0); Hematocrit 35.7 % (39.0-51.0); Hemoglobin 12.5 gm/dL (13.0-17.0); Lymph # (Auto) 1.1 th/mm3 (1.0-4.8); Mean Corpuscular HGB Conc 35.1 % (32.0-36.0); Mean Corpuscular Hemoglobin 33.1 pg (27.0-34.0); Mean Corpuscular Volume 94.2 fL (80.0-100.0); Mono # (Auto) 1.8 th/mm3 (0.0-0.9); Mono % (Auto) 15.2 % (0.0-8.0); Neut % (Auto) 74.7 % (16.0-70.0); Platelet Count 278 th/mm3 (150-450); Red Blood Count 3.79 mil/mm3 (4.50-5.90); Red Cell Distribution Width 13.2 % (11.6-17.2)
[2018-01-13] MEDS: Epoprostenol (30,000/mL) Neb 100 ML in Sodium Chlor 0.9% Inj 0 ML NEB SCH ×3 (08:35→23:37)
[2018-01-13] MEDS: Senna/Docusate Sodium 8.6/50 MG Tablet PO SCH ×2 (09:00→21:04)
[2018-01-13] MEDS: Famotidine PF Inj 20 MG/2 ML Vial IV.PUSH SCH ×2 (09:01→21:02)
[2018-01-13] MEDS: Enoxaparin Inj 40 MG/0.4 ML Syringe SQ SCH (09:01)
[2018-01-13] MEDS: Chlorhexidine 0.12% Oral Kit 15 ML UDC OROPHARYNG SCH ×4 (09:02→21:03)
[2018-01-13] MEDS: Vancomycin Inj 1,750 MG in Sodium Chlor 0.9% Inj 500 ML IV.SIG SCH (10:40)
[2018-01-13] MEDS ORDERED: Pharmacy Ordered Lab Info OTHER ONE (10:45)
[2018-01-13] MEDS: Beneprotein Powder Packet G-TUBE SCH ×3 (11:24→17:06)
[2018-01-13 11:36] LABS: Alanine Aminotransferase 19 U/L (12-78); Albumin 2.2 g/dL (3.4-5.0); Anion Gap 11 meq/L (5-15); Aspartate Aminotransferase 24 U/L (15-37); Blood Urea Nitrogen 17 mg/dL (7-18); Carbon Dioxide 29.3 meq/L (21.0-32.0); Chloride 102 meq/L (98-107); Glomerular Filtration Rate Greater Than 89 mL/min (>89); Glucose,Random 117 mg/dL (74-106); Potassium 3.2 meq/L (3.5-5.1); Sodium 142 meq/L (136-145)
[2018-01-13 11:38] LABS: Alkaline Phosphatase 95 U/L (45-117); Total Protein 6.9 g/dL (6.4-8.2); Vancomycin,Trough 10.9 mcg/mL (5.0-10.0)
[2018-01-13] MEDS: Potassium Chlor 20 mEq Premix 20 MEQ/100 ML PIGGYBACK IV.SIG PRN ×4 (15:04→21:51)
--- NOTE | 2018-01-13 15:19 | P.PNID ---
Subjective Remarks: Patient is on the ventilator and is not responsive. Copious secretions noted. White blood cell count is normal. Low grade fever. 37-year-old white male who was brought in to the emergency department when he was found down by a friend. The patient was noted to have overdosed on drugs. He was noted to have used IV heroin. In the emergency department, his temperature was normal. Chest x-ray was performed and showed an elevation of the right hemidiaphragm and right lower lobe consolidation versus atelectasis and small to moderate-sized right pleural effusion. The white blood cell count was elevated at 14.3. Blood cultures obtained on admission have Staph coagulase negative. This is present in 4/4 bottles. Past Medical History: PAST MEDICAL HISTORY: Intravenous drug abuse. Allergies/Adverse Reactions: Allergies No Allergy Information Available Allergy (Unverified 01/05/18 03:22) UTO Objective Vital Signs 01/12/18 15:22 01/12/18 16:00 01/12/18 17:00 Temperature 97.9 F Pulse Rate 86 87 Respiratory Rate 10 L 10 L 11 L Blood Pressure 129/82 130/75 Pulse Oximetry 96 94 L 96 01/12/18 18:00 01/12/18 19:00 01/12/18 20:00 Temperature 100.4 F H Pulse Rate 89 82 81 Respiratory Rate 11 L 16 15 Blood Pressure 134/82 135/82 135/79 Pulse Oximetry 95 93 L 96 01/12/18 20:15 01/12/18 21:00 01/12/18 22:00 Temperature Pulse Rate 88 87 Respiratory Rate 11 L 16 13 Blood Pressure 149/93 H 144/80 H Pulse Oximetry 97 94 L 95 01/12/18 23:00 01/12/18 23:48 01/13/18 00:00 Temperature 99.4 F Pulse Rate 92 H 84 Respiratory Rate 14 11 L 12 Blood Pressure 147/93 H 137/83 Pulse Oximetry 97 96 96 01/13/18 01:00 01/13/18 02:00 01/13/18 03:00 Temperature Pulse Rate 89 87 84 Respiratory Rate 16 17 13 Blood Pressure 139/90 143/98 H 136/89 Pulse Oximetry 95 97 01/13/18 04:00 01/13/18 04:12 01/13/18 05:00 Temperature 99.1 F Pulse Rate 74 77 Respiratory Rate 14 10 L 20 Blood Pressure 136/85 139/83 Pulse Oximetry 95 95 96 01/13/18 06:00 01/13/18 07:00 01/13/18 08:00 Temperature 98.8 F Pulse Rate 80 79 88 Respiratory Rate 24 25 H 31 H Blood Pressure 146/83 H 137/84 149/100 H Pulse Oximetry 95 95 93 L 01/13/18 08:17 01/13/18 09:00 01/13/18 10:00 Temperature Pulse Rate 85 77 Respiratory Rate 25 H 15 10 L Blood Pressure 133/78 124/74 Pulse Oximetry 95 95 01/13/18 11:00 01/13/18 11:44 01/13/18 12:00 Temperature 98.5 F Pulse Rate 78 82 Respiratory Rate 10 L 12 14 Blood Pressure 130/81 138/86 Pulse Oximetry 96 97 95 01/13/18 13:00 01/13/18 14:00 01/13/18 15:00 Temperature Pulse Rate 77 75 78 Respiratory Rate 10 L 10 L 10 L Blood Pressure 146/96 H 147/96 H 142/86 H Pulse Oximetry 91 L 95 95 Intake & Output 01/12/18 01/13/18 01/13/18 18:59 06:59 18:59 Intake Total 1501.5 / 1501.5 1317.5 / 1317.5 917.5 / 917.5 Output Total 2100 / 2100 700 / 700 Balance -598.5 / -598.5 617.5 / 617.5 917.5 / 917.5 Weight 88.7 kg Intake: IV 1367.5 / 1367.5 1217.5 / 1217.5 917.5 / 917.5 Diprivan 1000 mg/100 ml Inj 1, 300 / 300 400 / 400 200 / 200 000 mg In 100 ml @ 5 MCG/KG/MIN 2.585 mls/hr IV.CONT TITRATE PRN Rx#:[id number] Zosyn 4.5 GM Premix 4.5 gm In 200 / 200 200 / 200 100 / 100 100 ml @ 200 mls/hr IV.SIG Q6H VU Rx#:[id number] Vancomycin Inj 1,750 MG In NS 517.5 / 517.5 517.5 / 517.5 517.5 / 517.5 Inj 500 ML @ 250 mls/hr IV.SIG Q12H [facility], [facility]1983 Rx#:[id number] fentaNYL 10 mcg/mL Premix Drip 250 / 250 2,500 mcg In 250 ml @ 50 MCG/HR 5 mls/hr IV.SIG TITRATE PRN Rx #:[id number] Flolan (30,000 ng/mL) Neb 100 100 / 100 100 / 100 100 / 100 ML In NS Inj 0 ML @ 5 mls/hr NEB Q8H [facility], [facility]–1983 Rx#:[id number] Tube Feeding 134 / 134 Tube Irrigant 100 / 100 Output: Urine Amount (Catheter) 2099 500 / 500 Indwelling Urethral Catheter 2099 500 / 500 Gastric Drainage 200 / 200 Orogastric Tube 200 / 200 01/06/18 10:00 Blood - Peripheral Aerobic Blood Culture - Final No growth in 5 days 01/06/18 10:00 Blood - Peripheral Anaerobic Blood Culture - Final No growth in 5 days 01/06/18 09:50 Blood - Peripheral Aerobic Blood Culture - Final No growth in 5 days 01/06/18 09:50 Blood - Peripheral Anaerobic Blood Culture - Final No growth in 5 days Lab - Hematology Results 01/12/18 01/13/18 04:53 05:00 WBC 9.8 12.0 H RBC 3.82 L 3.79 L Hgb 12.8 L 12.5 L Hct 37.1 L 35.7 L MCV 97.1 94.2 MCH 33.6 33.1 MCHC 34.6 35.1 RDW 13.2 13.2 Plt Count 263 278 MPV 8.9 9.0 Neut % (Auto) 70.7 H 74.7 H Lymph % (Auto) 9.1 9.0 [place] % (Auto) 18.7 H 15.2 H Eos % (Auto) 1.0 0.6 Baso % (Auto) 0.5 0.5 Neut # (Auto) 6.9 9.0 H Lymph # (Auto) 0.9 L 1.1 [place] # (Auto) 1.8 H 1.8 H Eos # (Auto) 0.1 0.1 Baso # (Auto) 0.1 0.1 WBC Differential . . Differential Comment Auto diff final Auto diff final Lab - Chemistry Results 01/11/18 01/11/18 01/12/18 18:12 23:30 04:53 Sodium 139 Potassium 3.7 Chloride 104 Carbon Dioxide 28.7 Anion Gap 6 BUN 12 Creatinine 0.73 Estimated GFR Greater than 89 POC Glucose 103 100 Random Glucose 116 H Calcium 8.6 Total Bilirubin 0.7 AST 32 ALT 22 Alkaline Phosphatase 108 Total Protein 6.7 Albumin 2.3 L 01/12/18 01/12/18 01/13/18 12:50 18:18 00:04 Sodium Potassium Chloride Carbon Dioxide Anion Gap BUN Creatinine Estimated GFR POC Glucose 114 H 120 H 118 H Random Glucose Calcium Total Bilirubin AST ALT Alkaline Phosphatase Total Protein Albumin 01/13/18 01/13/18 01/13/18 06:49 10:45 11:15 Sodium 142 Potassium 3.2 L Chloride 102 Carbon Dioxide 29.3 Anion Gap 11 BUN 17 Creatinine 0.55 L Estimated GFR Greater than 89 POC Glucose 115 H 133 H Random Glucose 117 H Calcium 9.0 Total Bilirubin 0.7 AST 24 ALT 19 Alkaline Phosphatase 95 Total Protein 6.9 Albumin 2.2 L Imaging: ITS Impressions Head CT 01/05/18 05:01 CONCLUSION: 1. No acute intracranial findings. 2. Air-fluid levels in the right maxillary and sphenoid sinuses suggesting possible acute sinusitis versus air-fluid levels related to intubation.. . Chest CT 01/08/18 00:00 CONCLUSION: 1. Increasing airspace disease especially in both upper lobes. 2. Persistent dense consolidation in the lower lobes without significant improvement. 3. Increasing right pleural effusion. Abdomen X-Ray 01/12/18 00:00 CONCLUSION: Normal bowel gas pattern. No concerning calcifications seen. Chest X-Ray 01/12/18 00:00 CONCLUSION: 1. ET tube in good position. 2. Extensive bibasilar infiltrates worse on the right than the left. 3. Stable appearance of the pulmonary parenchyma compared to previous. Physical Exam: PHYSICAL EXAMINATION: GENERAL: On the ventilator and unresponsive. HEENT: The sclerae are nonicteric. Mild scleral edema. Pupils reactive to light. No icterus. Oropharynx intubated. LUNGS: Coarse breath sounds bilaterally. HEART: Regular S1, S2, without murmurs, rubs or gallops. ABDOMEN: Bowel sounds present. Soft. No tenderness appreciated. EXTREMITIES: No clubbing or cyanosis or edema. No embolic lesions visible. SKIN: No diffuse rash. NEUROLOGIC: Unable to assess. PSYCHIATRIC: Unable to assess. Assessment and Plan - Plan IMPRESSION: 1. Pneumonia. 2. Bacteremia due to Staphylococcus coag negative. 3. Acute respiratory failure. 4. Intravenous drug use. 5. Probable aspiration. RECOMMENDATIONS: 1. Continue piperacillin/tazobactam. 2. Continue vancomycin. 3. Monitor temperature. 4. Monitor clinical response.
--- NOTE | 2018-01-13 18:37 | P.PNCC ---
Subjective Subjective Remarks/Hospital Course: 37-year-old male who is brought to [facility] emergency department after friends contacted [facility] due to decreased mental status with suspected heroin overdose. He had used heroin earlier in the evening. [facility] reportedly found him laying in emesis with a thready pulse. They gave him sequential doses of Narcan to a total of 2.4 mg IV at which point he became more awake and alert. He then had multiple episodes of vomiting in route. NG tube was placed by the paramedics and they aspirated gastric contents and then removed s NG prior to arrival. His room air sats were reportedly 84% and he was placed on NR. Patient told Dr. Lovett that this was his first time using heroin and that he injected it. CXR demonstrated RLL opacity. He was started on Unasyn for aspiration pneumonia and given nebs. He eventually was intubated due to hypoxia with sats in high 80s despite nonrebreather. [employer] consulted for admission. 01/06: Remains sedated and intubated, requires PEEP 12 and FiO2 70%, will try to wean these today if tolerated. 01/07: Agitated overnight and this morning, 2 episodes where the patient bit down on ETT, desaturated, and became unstable. Not tolerating pressure support trials. 01/08: Remains sedated, orally intubated on mechanical ventilation. PEEP remains at +12. CT chest done today shows worsening consolidations. Pleural effusion. 01/09: Remains critically ill with severe bilateral lower lobe consolidated pneumonias. Requiring markedly elevated mean airway pressure still. Patient is nutritionally depleted and not responding well to our aggressive medical treatment. 01/10: Continued requirements for markedly elevated fractional inspiratory oxygen concentration. Continued dense consolidation in both lower lobes PEEP reduced to avoid overexpansion of upper lobes. 01/11: Converted to airway pressure release ventilation because of inability to oxygenate adequately. We will probably have to add Flolan. Lengthy discussion with family about the severity of his respiratory problems and pneumonia. 01/12: Some progress but remains with high A-aO2 gradient. ET tube above clavicles; repositioned. Copious foul secretions. High requirement requirements for analgesia and sedation due to alcohol history. Will continue methadone and start scheduled Librium in an attempt to lower the intravenous requirements. 01/13: Remains sedated, orally intubated on mechanical ventilation. Objective Vital Signs / I&O: Vital Signs 01/12/18 19:00 01/12/18 20:00 01/12/18 20:15 Temperature 100.4 F H Pulse Rate 82 81 Respiratory Rate 16 15 11 L Blood Pressure 135/82 135/79 Pulse Oximetry 93 L 96 97 01/12/18 21:00 01/12/18 22:00 01/12/18 23:00 Temperature Pulse Rate 88 87 92 H Respiratory Rate 16 13 14 Blood Pressure 149/93 H 144/80 H 147/93 H Pulse Oximetry 94 L 95 97 01/12/18 23:48 01/13/18 00:00 01/13/18 01:00 Temperature 99.4 F Pulse Rate 84 89 Respiratory Rate 11 L 12 16 Blood Pressure 137/83 139/90 Pulse Oximetry 96 96 95 01/13/18 02:00 01/13/18 03:00 01/13/18 04:00 Temperature 99.1 F Pulse Rate 87 84 74 Respiratory Rate 17 13 14 Blood Pressure 143/98 H 136/89 136/85 Pulse Oximetry 97 95 01/13/18 04:12 01/13/18 05:00 01/13/18 06:00 Temperature Pulse Rate 77 80 Respiratory Rate 10 L 20 24 Blood Pressure 139/83 146/83 H Pulse Oximetry 95 96 95 01/13/18 07:00 01/13/18 08:00 01/13/18 08:17 Temperature 98.8 F Pulse Rate 79 88 Respiratory Rate 25 H 31 H 25 H Blood Pressure 137/84 149/100 H Pulse Oximetry 95 93 L 95 01/13/18 09:00 01/13/18 10:00 01/13/18 11:00 Temperature Pulse Rate 85 77 78 Respiratory Rate 15 10 L 10 L Blood Pressure 133/78 124/74 130/81 Pulse Oximetry 95 96 01/13/18 11:44 01/13/18 12:00 01/13/18 13:00 Temperature 98.5 F Pulse Rate 82 77 Respiratory Rate 12 14 10 L Blood Pressure 138/86 146/96 H Pulse Oximetry 97 95 91 L 01/13/18 14:00 01/13/18 15:00 01/13/18 16:00 Temperature 99.4 F Pulse Rate 75 78 80 Respiratory Rate 10 L 10 L 20 Blood Pressure 147/96 H 142/86 H 146/92 H Pulse Oximetry 95 95 98 01/13/18 16:26 01/13/18 17:00 01/13/18 18:00 Temperature Pulse Rate 78 80 Respiratory Rate 11 L 11 L 11 L Blood Pressure 143/89 H 150/90 H Pulse Oximetry 97 98 98 Intake & Output 01/12/18 01/13/18 01/13/18 18:59 06:59 18:59 Intake Total 1501.5 / 1501.5 1317.5 / 1317.5 1317.5 / 1317.5 Output Total 2099 700 / 700 550 / 550 Balance -598.5 / -598.5 617.5 / 617.5 767.5 / 767.5 Weight 88.7 kg Intake: IV 1367.5 / 1367.5 1217.5 / 1217.5 1317.5 / 1317.5 Diprivan 1000 mg/100 ml Inj 1, 300 / 300 400 / 400 300 / 300 000 mg In 100 ml @ 5 MCG/KG/MIN 2.585 mls/hr IV.CONT TITRATE PRN Rx#:[id number] Zosyn 4.5 GM Premix 4.5 gm In 200 / 200 200 / 200 200 / 200 100 ml @ 200 mls/hr IV.SIG Q6H VU Rx#:[id number] KCl 20 mEq Premix Inj 20 meq In 200 / 200 100 ml @ 50 mls/hr IV.SIG Q2H PRN Rx#:[id number] Vancomycin Inj 1,750 MG In NS 517.5 / 517.5 517.5 / 517.5 517.5 / 517.5 Inj 500 ML @ 250 mls/hr IV.SIG Q12H VU Rx#:[id number] fentaNYL 10 mcg/mL Premix Drip 250 / 250 2,500 mcg In 250 ml @ 50 MCG/HR 5 mls/hr IV.SIG TITRATE PRN Rx #:[id number] Flolan (30,000 ng/mL) Neb 100 100 / 100 100 / 100 100 / 100 ML In NS Inj 0 ML @ 5 mls/hr NEB Q8H VU Rx#:[id number] Tube Feeding 134 / 134 Tube Irrigant 100 / 100 Output: Urine Amount (Catheter) 2099 500 / 500 450 / 450 Indwelling Urethral Catheter 2099 500 / 500 450 / 450 Gastric Drainage 200 / 200 100 / 100 Orogastric Tube 200 / 200 100 / 100 Other: Date of Last Bowel Movement 01/13/18 # Bowel Movements 1 Result Diagrams: 01/13/18 05:00 01/13/18 10:45 Objective Remarks: GEN: Intubated and sedated, ill appearing HEENT: NCAT, pupils 2mm, reactive to light NECK: Trachea midline, orotracheal intubation, neck supple CARDIO: Regular rate and rhythm, NL S1S2, no JVD. PULM: Air entry markedly decreased bilaterally at bases. Profuse bilateral rhonchi and many mobile secretions persist. ABD/GI: Soft, non-distended. No guarding, bowel sounds are active. EXT/MSK: 1+ peripheral edema, warm, adequately perfused. SKIN: No rashes or lesions, clammy. NEURO: Sedated, orally intubated on mechanical ventilation. Withdraws 4 limbs to noxious stimulation. Opens eyes but does not track. Attempts to squeeze with left hand.Strong cough and gag reflex. Assessment and Plan - Problem List (1) Heroin overdose Code(s): T40.1X1A - Poisoning by heroin, accidental (unintentional), initial encounter Status: Acute (2) Polysubstance abuse Code(s): F19.10 - Other psychoactive substance abuse, uncomplicated Status: Chronic (3) Cocaine abuse Code(s): F14.10 - Cocaine abuse, uncomplicated Status: Acute (4) Elevated ETOH level Code(s): R78.0 - Finding of alcohol in blood Status: Acute (5) Marijuana abuse Code(s): F12.10 - Cannabis abuse, uncomplicated Status: Acute (6) TORREY (acute kidney injury) Code(s): N17.9 - Acute kidney failure, unspecified Status: Acute (7) Severe sepsis Code(s): A41.9 - Sepsis, unspecified organism; R65.20 - Severe sepsis without septic shock Status: Acute (8) Acute respiratory failure with hypoxia Code(s): J96.01 - Acute respiratory failure with hypoxia Status: Acute (9) Aspiration pneumonia Code(s): J69.0 - Pneumonitis due to inhalation of food and vomit Status: Acute (10) Vomiting Code(s): R11.10 - Vomiting, unspecified Status: Acute (11) Hyperglycemia Code(s): R73.9 - Hyperglycemia, unspecified Status: Acute (12) Protein-calorie malnutrition, moderate Code(s): E44.0 - Moderate protein-calorie malnutrition Status: Acute - Assessment and Plan Plan: NEURO: Heroin overdose Polysubstance abuse (marijuana, opiate, cocaine) Alcohol level was 61 on admission. Propofol and fentanyl for sedation-- PRN ativan and precedex gtt as patient becomes extremely agitated with even slight drop in sedation Thiamine/multivitamin supplementation CTH negative Tolerance to narcotic analgesia implies chronic narcotic use On methadone to wean fentanyl. RESP: Acute hypoxemic respiratory failure Acute aspiration pneumonia Intubated in ED 01/05 due to hypoxia. PRVC with ventilator bundle, would like to continue spontaneous breathing trials when sedation regimen is changed. PEEP 12 DuoNeb every 6 hours. Albuterol every 2 hours as needed. CXR shows RLL opacity, likely aspiration pneumonia (see below) CT chest with dense bilateral basilar consolidations and small right pleural effusion CV: Telemetry and BP monitoring in ICU GI: Vomiting - likely secondary to opioid withdrawal Continue TFs at goal Zofran prn. FEN/RENAL: TORREY - suspect pre-renal secondary to overdose and sepsis, improving CPK is normal Urine output adequate D/C maintenance fluids ID: Severe Sepsis secondary to aspiration pneumonia Continue Unasyn for aspiration. MRSA swab negative Blood cultures from 01/05 growing staph epidermidis in both bottles, repeat cultures sent 01/06 no growth at 1 day * Start on vancomycin yesterday when prelim results showed staph, now identified as not MRSA, stopped on 01/07 Consult ID for antibiotic management in view of worsening respiratory status/ sepsis. HEME: No acute hematologic issues. Coags are normal. ENDO: Acute hyperglycemia Monitor bedside glucose every 6 hours and administer low-dose insulin sliding scale as indicated. Poor control continues PROPH: -PPI -SCDs/ lovenox ACCESS: Peripheral IV in left EJ OVERALL: This patient remains critically ill requiring ventilator support for aspiration pneumonia and heroin drug overdose. He requires continued ICU level of care. His early response to aggressive medical therapy has been poor, undoubtedly related to chronic debilitation and poor baseline nutritional status. His long-term prognosis is guarded, largely due to concerns about his nutritional and immune status. Critical care time 40 minutes aside from procedures.
[2018-01-13] MEDS: Vancomycin Inj 2,000 MG in Sodium Chlor 0.9% Inj 500 ML IV.SIG SCH (21:02)
[2018-01-14] MEDS: Insulin NovoLOG Aspart Correctional Sugar Inj SQ SCH ×4 (02:15→17:27)
[2018-01-14] MEDS: Oral Hygiene Kit OROPHARYNG SCH ×8 (02:16→16:59)
[2018-01-14] MEDS: chlordiazePOXIDE 25 MG Capsule PO SCH ×3 (02:17→17:04)
[2018-01-14] MEDS: Methadone 10 MG Tablet PO SCH ×2 (02:17→14:51)
[2018-01-14 04:42] LABS: ABG Base Excess 3.9 mmol/L (-2-2); ABG PCO2 39 mmHg (38-42); ABG PO2 59 mmHg (61-120)
[2018-01-14] MEDS: Piperacil/Tazo 4.5 GM Premix 4.5 GM/100 ML BAG IV.SIG SCH ×4 (04:54→23:00)
[2018-01-14 05:06] LABS: Baso # (Auto) 0.1 th/mm3 (0.0-0.2); Baso % (Auto) 0.4 % (0.0-2.0); Eos # (Auto) 0.1 th/mm3 (0.0-0.4); Eos % (Auto) 0.7 % (0.0-4.0); Hematocrit 35.8 % (39.0-51.0); Hemoglobin 12.4 gm/dL (13.0-17.0); Lymph # (Auto) 1.4 th/mm3 (1.0-4.8); Lymph % (Auto) 9.2 % (9.0-44.0); Mean Corpuscular HGB Conc 34.8 % (32.0-36.0); Mean Corpuscular Volume 94.9 fL (80.0-100.0); Mean Platelet Volume 8.9 fL (7.0-11.0); Mono # (Auto) 1.8 th/mm3 (0.0-0.9); Mono % (Auto) 12.1 % (0.0-8.0); Neut # (Auto) 11.7 th/mm3 (1.8-7.7); Neut % (Auto) 77.6 % (16.0-70.0); Platelet Count 349 th/mm3 (150-450); Red Blood Count 3.77 mil/mm3 (4.50-5.90); Red Cell Distribution Width 13.5 % (11.6-17.2); White Blood Count 15.1 th/mm3 (4.0-11.0)
[2018-01-14 05:16] LABS: Albumin 2.2 g/dL (3.4-5.0); Anion Gap 8 meq/L (5-15); Aspartate Aminotransferase 25 U/L (15-37); Blood Urea Nitrogen 18 mg/dL (7-18); Calcium 9.3 mg/dL (8.5-10.1); Carbon Dioxide 27.1 meq/L (21.0-32.0); Chloride 105 meq/L (98-107); Glomerular Filtration Rate Greater Than 89 mL/min (>89); Glucose,Random 103 mg/dL (74-106); Potassium 3.5 meq/L (3.5-5.1); Sodium 140 meq/L (136-145)
[2018-01-14 05:17] LABS: Alanine Aminotransferase 20 U/L (12-78)
[2018-01-14 05:19] LABS: Alkaline Phosphatase 139 U/L (45-117); Total Protein 7.1 g/dL (6.4-8.2)
[2018-01-14] MEDS: Propofol 1000 mg/100 ml Inj 1,000 MG/100 ML BOTTLE IV.CONT PRN ×5 (06:54→23:20)
[2018-01-14] MEDS: fentaNYL 10 mcg/mL Premix Drip 2,500 MCG/250 ML BAG IV.SIG PRN (06:57)
[2018-01-14] MEDS: Enoxaparin Inj 40 MG/0.4 ML Syringe SQ SCH (08:17)
[2018-01-14] MEDS: Vancomycin Inj 2,000 MG in Sodium Chlor 0.9% Inj 500 ML IV.SIG SCH ×2 (08:17→21:02)
[2018-01-14] MEDS: Famotidine PF Inj 20 MG/2 ML Vial IV.PUSH SCH ×2 (08:18→20:59)
[2018-01-14] MEDS: Epoprostenol (30,000/mL) Neb 100 ML in Sodium Chlor 0.9% Inj 0 ML NEB SCH ×2 (08:36→17:00)
[2018-01-14] MEDS: Beneprotein Powder Packet G-TUBE SCH ×3 (09:39→17:05)
[2018-01-14] MEDS: Chlorhexidine 0.12% Oral Kit 15 ML UDC OROPHARYNG SCH ×3 (09:39→20:59)
[2018-01-14] MEDS: Senna/Docusate Sodium 8.6/50 MG Tablet PO SCH ×2 (09:40→21:00)
--- NOTE | 2018-01-14 12:29 | P.PNID ---
Subjective Remarks: Patient is on the ventilator and is not responsive. Sedated. Copious secretions noted. Continues to have low-grade fever. Blood culture from 01/06 as no growth. White blood cell count has increased. 37-year-old white male who was brought in to the emergency department when he was found down by a friend. The patient was noted to have overdosed on drugs. He was noted to have used IV heroin. In the emergency department, his temperature was normal. Chest x-ray was performed and showed an elevation of the right hemidiaphragm and right lower lobe consolidation versus atelectasis and small to moderate-sized right pleural effusion. The white blood cell count was elevated at 14.3. Blood cultures obtained on admission have Staph coagulase negative. This is present in 4/4 bottles. Past Medical History: PAST MEDICAL HISTORY: Intravenous drug abuse. Allergies/Adverse Reactions: Allergies No Allergy Information Available Allergy (Unverified 01/05/18 03:22) UTO Objective Vital Signs 01/13/18 13:00 01/13/18 14:00 01/13/18 15:00 Temperature Pulse Rate 77 75 78 Respiratory Rate 10 L 10 L 10 L Blood Pressure 146/96 H 147/96 H 142/86 H Pulse Oximetry 91 L 95 95 01/13/18 16:00 01/13/18 16:26 01/13/18 17:00 Temperature 99.4 F Pulse Rate 80 78 Respiratory Rate 20 11 L 11 L Blood Pressure 146/92 H 143/89 H Pulse Oximetry 98 97 98 01/13/18 18:00 01/13/18 19:00 01/13/18 19:53 Temperature Pulse Rate 80 84 Respiratory Rate 11 L 21 12 Blood Pressure 150/90 H 150/96 H Pulse Oximetry 98 97 96 01/13/18 20:00 01/13/18 21:00 01/13/18 22:00 Temperature 99.8 F H Pulse Rate 84 79 76 Respiratory Rate 16 11 L 10 L Blood Pressure 151/95 H 142/92 H 143/89 H Pulse Oximetry 95 96 96 01/13/18 23:00 01/13/18 23:31 01/14/18 00:00 Temperature 99.8 F H Pulse Rate 68 71 Respiratory Rate 11 L 11 L 10 L Blood Pressure 145/95 H 145/91 H Pulse Oximetry 95 96 95 01/14/18 01:00 01/14/18 02:00 01/14/18 02:25 Temperature Pulse Rate 73 77 Respiratory Rate 10 L 10 L 11 L Blood Pressure 149/96 H 151/98 H Pulse Oximetry 98 98 99 01/14/18 03:00 01/14/18 04:00 01/14/18 04:08 Temperature 100.8 F H Pulse Rate 80 79 Respiratory Rate 11 L 12 10 L Blood Pressure 144/85 H 149/97 H Pulse Oximetry 92 L 93 L 92 L 01/14/18 05:00 01/14/18 06:00 01/14/18 07:00 Temperature Pulse Rate 75 73 75 Respiratory Rate 10 L 11 L 11 L Blood Pressure 137/81 137/82 141/85 H Pulse Oximetry 92 L 93 L 91 L 01/14/18 07:22 01/14/18 08:00 01/14/18 09:00 Temperature 99.6 F Pulse Rate 81 86 Respiratory Rate 11 L 11 L 11 L Blood Pressure 142/93 H 142/82 H Pulse Oximetry 92 L 92 L 94 L 01/14/18 10:00 01/14/18 11:00 01/14/18 12:00 Temperature 99.4 F Pulse Rate 79 76 78 Respiratory Rate 11 L 11 L 11 L Blood Pressure 138/84 145/91 H 143/88 H Pulse Oximetry 92 L 93 L 94 L 01/14/18 12:14 Temperature Pulse Rate Respiratory Rate 11 L Blood Pressure Pulse Oximetry 93 L Intake & Output 01/13/18 01/14/18 01/14/18 18:59 06:59 18:59 Intake Total 1317.5 / 1317.5 1470 / 1470 300 / 300 Output Total 550 / 550 375 / 375 Balance 767.5 / 767.5 1095 / 1095 300 / 300 Weight 89.4 kg Intake: IV 1317.5 / 1317.5 1470 / 1470 300 / 300 Diprivan 1000 mg/100 ml Inj 1, 300 / 300 200 / 200 100 / 100 000 mg In 100 ml @ 5 MCG/KG/MIN 2.585 mls/hr IV.CONT TITRATE PRN Rx#:[id number] Zosyn 4.5 GM Premix 4.5 gm In 200 / 200 200 / 200 100 / 100 100 ml @ 200 mls/hr IV.SIG Q6H [facility] Rx#:[id number] KCl 20 mEq Premix Inj 20 meq In 200 / 200 200 / 200 100 ml @ 50 mls/hr IV.SIG Q2H PRN Rx#:[id number] Vancomycin Inj 2,000 MG In NS 517.5 / 517.5 520 / 520 Inj 500 ML @ 260 mls/hr IV.SIG Q12H [facility] Rx#:[id number] fentaNYL 10 mcg/mL Premix Drip 250 / 250 2,500 mcg In 250 ml @ 50 MCG/HR 5 mls/hr IV.SIG TITRATE PRN Rx #:[id number] Flolan (30,000 ng/mL) Neb 100 100 / 100 100 / 100 100 / 100 ML In NS Inj 0 ML @ 5 mls/hr NEB Q8H [facility] Rx#:[id number] Output: Urine 350 / 350 Urine Amount (Catheter) 450 / 450 Indwelling Urethral Catheter 450 / 450 Gastric Drainage 100 / 100 25 / 25 Orogastric Tube 100 / 100 25 / 25 Other: Date of Last Bowel Movement 01/13/18 # Bowel Movements 1 0 # Emeses 1 01/06/18 10:00 Blood - Peripheral Aerobic Blood Culture - Final No growth in 5 days 01/06/18 10:00 Blood - Peripheral Anaerobic Blood Culture - Final No growth in 5 days 01/06/18 09:50 Blood - Peripheral Aerobic Blood Culture - Final No growth in 5 days 01/06/18 09:50 Blood - Peripheral Anaerobic Blood Culture - Final No growth in 5 days Lab - Hematology Results 01/13/18 01/14/18 05:00 04:23 WBC 12.0 H 15.1 H RBC 3.79 L 3.77 L Hgb 12.5 L 12.4 L Hct 35.7 L 35.8 L MCV 94.2 94.9 MCH 33.1 33.0 MCHC 35.1 34.8 RDW 13.2 13.5 Plt Count 278 349 MPV 9.0 8.9 Prelim Diff (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 . Differential Comment Auto diff final Auto diff final Lab - Chemistry Results 01/12/18 01/12/18 01/13/18 12:50 18:18 00:04 Sodium Potassium Chloride Carbon Dioxide Anion Gap BUN Creatinine Estimated GFR POC Glucose 114 H 120 H 118 H Random Glucose Calcium Total Bilirubin AST ALT Alkaline Phosphatase Total Protein Albumin 01/13/18 01/13/18 01/13/18 06:49 10:45 11:15 Sodium 142 Potassium 3.2 L Chloride 102 Carbon Dioxide 29.3 Anion Gap 11 BUN 17 Creatinine 0.55 L Estimated GFR Greater than 89 POC Glucose 115 H 133 H Random Glucose 117 H Calcium 9.0 Total Bilirubin 0.7 AST 24 ALT 19 Alkaline Phosphatase 95 Total Protein 6.9 Albumin 2.2 L 01/13/18 01/13/18 01/14/18 17:13 23:27 04:23 Sodium 140 Potassium 3.5 Chloride 105 Carbon Dioxide 27.1 Anion Gap 8 BUN 18 Creatinine 0.54 L Estimated GFR Greater than 89 POC Glucose 115 H 136 H Random Glucose 103 Calcium 9.3 Total Bilirubin 0.9 AST 25 ALT 20 Alkaline Phosphatase 139 H Total Protein 7.1 Albumin 2.2 L 01/14/18 10:41 Sodium Potassium Chloride Carbon Dioxide Anion Gap BUN Creatinine Estimated GFR POC Glucose 102 Random Glucose Calcium Total Bilirubin AST ALT Alkaline Phosphatase Total Protein Albumin Imaging: ITS Impressions Head CT 01/05/18 05:01 CONCLUSION: 1. No acute intracranial findings. 2. Air-fluid levels in the right maxillary and sphenoid sinuses suggesting possible acute sinusitis versus air-fluid levels related to intubation.. . Chest CT 01/08/18 00:00 CONCLUSION: 1. Increasing airspace disease especially in both upper lobes. 2. Persistent dense consolidation in the lower lobes without significant improvement. 3. Increasing right pleural effusion. Abdomen X-Ray 01/12/18 00:00 CONCLUSION: Normal bowel gas pattern. No concerning calcifications seen. Chest X-Ray 01/12/18 00:00 CONCLUSION: 1. ET tube in good position. 2. Extensive bibasilar infiltrates worse on the right than the left. 3. Stable appearance of the pulmonary parenchyma compared to previous. Physical Exam: PHYSICAL EXAMINATION: GENERAL: On the ventilator and unresponsive. HEENT: The sclerae are nonicteric. Mild scleral edema. No icterus. Oropharynx intubated. LUNGS: Coarse breath sounds bilateral. HEART: Regular S1, S2, without murmurs, rubs or gallops. ABDOMEN: Bowel sounds present. Soft. EXTREMITIES: No clubbing or cyanosis or edema. No embolic lesions visible. SKIN: No diffuse rash. NEUROLOGIC: Unable to assess. PSYCHIATRIC: Unable to assess. Assessment and Plan - Plan IMPRESSION: 1. Pneumonia. 2. Bacteremia due to Staphylococcus coag negative. Repeat blood cultures have no growth. This possibly could be contamination. 3. Acute respiratory failure. 4. Intravenous drug use. 5. Probable aspiration. RECOMMENDATIONS: 1. Continue piperacillin/tazobactam. 2. Continue vancomycin. 3. Monitor temperature. 4. Monitor clinical response. 5. Monitor white blood cell count.
--- NOTE | 2018-01-14 13:14 | P.PNCC ---
Subjective Subjective Remarks/Hospital Course: 37-year-old male who is brought to [facility] emergency department after friends contacted [facility] due to decreased mental status with suspected heroin overdose. He had used heroin earlier in the evening. [facility] reportedly found him laying in emesis with a thready pulse. They gave him sequential doses of Narcan to a total of 2.4 mg IV at which point he became more awake and alert. He then had multiple episodes of vomiting in route. NG tube was placed by the paramedics and they aspirated gastric contents and then removed s NG prior to arrival. His room air sats were reportedly 84% and he was placed on NR. Patient told Dr. Lovett that this was his first time using heroin and that he injected it. CXR demonstrated RLL opacity. He was started on Unasyn for aspiration pneumonia and given nebs. He eventually was intubated due to hypoxia with sats in high 80s despite nonrebreather. Heating Operators Engineer consulted for admission. 01/06: Remains sedated and intubated, requires PEEP 12 and FiO2 70%, will try to wean these today if tolerated. 01/07: Agitated overnight and this morning, 2 episodes where the patient bit down on ETT, desaturated, and became unstable. Not tolerating pressure support trials. 01/08: Remains sedated, orally intubated on mechanical ventilation. PEEP remains at +12. CT chest done today shows worsening consolidations. Pleural effusion. 01/09: Remains critically ill with severe bilateral lower lobe consolidated pneumonias. Requiring markedly elevated mean airway pressure still. Patient is nutritionally depleted and not responding well to our aggressive medical treatment. 01/10: Continued requirements for markedly elevated fractional inspiratory oxygen concentration. Continued dense consolidation in both lower lobes PEEP reduced to avoid overexpansion of upper lobes. 01/11: Converted to airway pressure release ventilation because of inability to oxygenate adequately. We will probably have to add Flolan. Lengthy discussion with family about the severity of his respiratory problems and pneumonia. 01/12: Some progress but remains with high A-aO2 gradient. ET tube above clavicles; repositioned. Copious foul secretions. High requirement requirements for analgesia and sedation due to alcohol history. Will continue methadone and start scheduled Librium in an attempt to lower the intravenous requirements. 01/13: Remains sedated, orally intubated on mechanical ventilation. 01/14: Remains sedated, orally intubated on mechanical ventilation. Remains on APRV mode. On inhaled Flolan. Objective Vital Signs / I&O: Vital Signs 01/13/18 14:00 01/13/18 15:00 01/13/18 16:00 Temperature 99.4 F Pulse Rate 75 78 80 Respiratory Rate 10 L 10 L 20 Blood Pressure 147/96 H 142/86 H 146/92 H Pulse Oximetry 95 95 98 01/13/18 16:26 01/13/18 17:00 01/13/18 18:00 Temperature Pulse Rate 78 80 Respiratory Rate 11 L 11 L 11 L Blood Pressure 143/89 H 150/90 H Pulse Oximetry 97 98 98 01/13/18 19:00 01/13/18 19:53 01/13/18 20:00 Temperature 99.8 F H Pulse Rate 84 84 Respiratory Rate 21 12 16 Blood Pressure 150/96 H 151/95 H Pulse Oximetry 97 96 95 01/13/18 21:00 01/13/18 22:00 01/13/18 23:00 Temperature Pulse Rate 79 76 68 Respiratory Rate 11 L 10 L 11 L Blood Pressure 142/92 H 143/89 H 145/95 H Pulse Oximetry 96 96 95 01/13/18 23:31 01/14/18 00:00 01/14/18 01:00 Temperature 99.8 F H Pulse Rate 71 73 Respiratory Rate 11 L 10 L 10 L Blood Pressure 145/91 H 149/96 H Pulse Oximetry 96 95 98 01/14/18 02:00 01/14/18 02:25 01/14/18 03:00 Temperature Pulse Rate 77 80 Respiratory Rate 10 L 11 L 11 L Blood Pressure 151/98 H 144/85 H Pulse Oximetry 98 99 92 L 01/14/18 04:00 01/14/18 04:08 01/14/18 05:00 Temperature 100.8 F H Pulse Rate 79 75 Respiratory Rate 12 10 L 10 L Blood Pressure 149/97 H 137/81 Pulse Oximetry 93 L 92 L 92 L 01/14/18 06:00 01/14/18 07:00 01/14/18 07:22 Temperature Pulse Rate 73 75 Respiratory Rate 11 L 11 L 11 L Blood Pressure 137/82 141/85 H Pulse Oximetry 93 L 91 L 92 L 01/14/18 08:00 01/14/18 09:00 01/14/18 10:00 Temperature 99.6 F Pulse Rate 81 86 79 Respiratory Rate 11 L 11 L 11 L Blood Pressure 142/93 H 142/82 H 138/84 Pulse Oximetry 92 L 94 L 92 L 01/14/18 11:00 01/14/18 12:00 01/14/18 12:14 Temperature 99.4 F Pulse Rate 76 78 Respiratory Rate 11 L 11 L 11 L Blood Pressure 145/91 H 143/88 H Pulse Oximetry 93 L 94 L 93 L Intake & Output 01/13/18 01/14/18 01/14/18 18:59 06:59 18:59 Intake Total 1317.5 / 1317.5 1470 / 1470 300 / 300 Output Total 550 / 550 375 / 375 Balance 767.5 / 767.5 1095 / 1095 300 / 300 Weight 89.4 kg Intake: IV 1317.5 / 1317.5 1470 / 1470 300 / 300 Diprivan 1000 mg/100 ml Inj 1, 300 / 300 200 / 200 100 / 100 000 mg In 100 ml @ 5 MCG/KG/MIN 2.585 mls/hr IV.CONT TITRATE PRN Rx#:[id number] Zosyn 4.5 GM Premix 4.5 gm In 200 / 200 200 / 200 100 / 100 100 ml @ 200 mls/hr IV.SIG Q6H [facility] Rx#:[id number] KCl 20 mEq Premix Inj 20 meq In 200 / 200 200 / 200 100 ml @ 50 mls/hr IV.SIG Q2H PRN Rx#:[id number] Vancomycin Inj 2,000 MG In NS 517.5 / 517.5 520 / 520 Inj 500 ML @ 260 mls/hr IV.SIG Q12H [facility] Rx#:[id number] fentaNYL 10 mcg/mL Premix Drip 250 / 250 2,500 mcg In 250 ml @ 50 MCG/HR 5 mls/hr IV.SIG TITRATE PRN Rx #:[id number] Flolan (30,000 ng/mL) Neb 100 100 / 100 100 / 100 100 / 100 ML In NS Inj 0 ML @ 5 mls/hr NEB Q8H [facility] Rx#:[id number] Output: Urine 350 / 350 Urine Amount (Catheter) 450 / 450 Indwelling Urethral Catheter 450 / 450 Gastric Drainage 100 / 100 25 / 25 Orogastric Tube 100 / 100 25 / 25 Other: Date of Last Bowel Movement 01/13/18 # Bowel Movements 1 0 # Emeses 1 Result Diagrams: 01/14/18 04:23 01/14/18 04:23 Objective Remarks: GEN: Intubated and sedated, ill appearing HEENT: NCAT, pupils 2mm, reactive to light NECK: Trachea midline, orotracheal intubation, neck supple CARDIO: Regular rate and rhythm, NL S1S2, no JVD. PULM: Air entry markedly decreased bilaterally at bases. Profuse bilateral rhonchi and many mobile secretions persist. ABD/GI: Soft, non-distended. No guarding, bowel sounds are active. EXT/MSK: 1+ peripheral edema, warm, adequately perfused. SKIN: No rashes or lesions, clammy. NEURO: Sedated, orally intubated on mechanical ventilation. Withdraws 4 limbs to noxious stimulation. Opens eyes but does not track. Attempts to squeeze with left hand.Strong cough and gag reflex. Assessment and Plan - Problem List (1) Heroin overdose Code(s): T40.1X1A - Poisoning by heroin, accidental (unintentional), initial encounter Status: Acute (2) Polysubstance abuse Code(s): F19.10 - Other psychoactive substance abuse, uncomplicated Status: Chronic (3) Cocaine abuse Code(s): F14.10 - Cocaine abuse, uncomplicated Status: Acute (4) Elevated ETOH level Code(s): R78.0 - Finding of alcohol in blood Status: Acute (5) Marijuana abuse Code(s): F12.10 - Cannabis abuse, uncomplicated Status: Acute (6) TORREY (acute kidney injury) Code(s): N17.9 - Acute kidney failure, unspecified Status: Acute (7) Severe sepsis Code(s): A41.9 - Sepsis, unspecified organism; R65.20 - Severe sepsis without septic shock Status: Acute (8) Acute respiratory failure with hypoxia Code(s): J96.01 - Acute respiratory failure with hypoxia Status: Acute (9) Aspiration pneumonia Code(s): J69.0 - Pneumonitis due to inhalation of food and vomit Status: Acute (10) Vomiting Code(s): R11.10 - Vomiting, unspecified Status: Acute (11) Hyperglycemia Code(s): R73.9 - Hyperglycemia, unspecified Status: Acute (12) Protein-calorie malnutrition, moderate Code(s): E44.0 - Moderate protein-calorie malnutrition Status: Acute - Assessment and Plan Plan: NEURO: Heroin overdose Polysubstance abuse (marijuana, opiate, cocaine) Alcohol level was 61 on admission. Propofol and fentanyl for sedation-- PRN ativan and precedex gtt as patient becomes extremely agitated with even slight drop in sedation Thiamine/multivitamin supplementation CTH negative Tolerance to narcotic analgesia implies chronic narcotic use On methadone to wean fentanyl. RESP: Acute hypoxemic respiratory failure Acute aspiration pneumonia Intubated in ED 01/05 due to hypoxia. PRVC with ventilator bundle, would like to continue spontaneous breathing trials when sedation regimen is changed. PEEP 12 DuoNeb every 6 hours. Albuterol every 2 hours as needed. CXR shows RLL opacity, likely aspiration pneumonia (see below) CT chest with dense bilateral basilar consolidations and small right pleural effusion CV: Telemetry and BP monitoring in ICU GI: Vomiting - likely secondary to opioid withdrawal Continue TFs at goal Zofran prn. FEN/RENAL: TORREY - suspect pre-renal secondary to overdose and sepsis, improving CPK is normal Urine output adequate D/C maintenance fluids ID: Severe Sepsis secondary to aspiration pneumonia Continue for aspiration. MRSA swab negative Blood cultures from 01/05 growing staph epidermidis in both bottles, repeat cultures sent 01/06 no growth at 1 day Consulted ID for antibiotic management in view of worsening respiratory status/ sepsis. On zosyn/ Vancomycin IV. HEME: No acute hematologic issues. Coags are normal. ENDO: Acute hyperglycemia Monitor bedside glucose every 6 hours and administer low-dose insulin sliding scale as indicated. Poor control continues PROPH: -PPI -SCDs/ lovenox ACCESS: Peripheral IV in left EJ OVERALL: This patient remains critically ill requiring ventilator support for aspiration pneumonia and heroin drug overdose. He requires continued ICU level of care. His early response to aggressive medical therapy has been poor, undoubtedly related to chronic debilitation and poor baseline nutritional status. His long-term prognosis is guarded, largely due to concerns about his nutritional and immune status. Critical care time 40 minutes aside from procedures.
--- NOTE | 2018-01-14 14:42 | P.DIET ---
Nutritional Evaluation Type of nutrition evaluation: follow-up Nutrition consult regarding: Tube Feeding Objective - Diagnosis Respiratory Failure s/p heroin overdose - Objective % IBW: 103 (IBW = 178#) Energy Needs - Lower Range (kCal/kg): 28 Energy Needs - Upper Range (kCal/kg): 32 Lower Limit kCal/kg (kCals): 2,327 Upper Limit kCal/kg (kCals): 2,659 Lower Limit Protein Factor (Grams per Kg): 1.2 Upper Limit Protein Factor (Grams per Kg): 1.6 Lower Protein Needs (Protein): 100 Upper Protein Needs (Protein): 133 Dietitian Reviewed in Medical Record: Curent medications, Intake & Output, Labs , Medical history, Tube feeding Diet Order: NPO Assessment Assessment: Pt remains at high nutrition risk 2' to the need for TFing. TF currrently on hold. Recommend Jevity 1.5 @ 65 mls/hr to provide 2340 kcals, 100 gms protein and 1186 mls of free water. Beneprotein as ordered will provide 36 additional grams of protein. Some additional kcals will also come from propofol (1.1 kcal/ ml) when running. Labs, wts and clinical course reviewed. Recommendations: Jevity 1.5 @ 65 mls/hr goal Beneprotein as ordered Dietitian to Monitor: Lab values, Tube feeding tolerance, Weight change, Medical course
[2018-01-14] MEDS ORDERED: Epoprostenol (30,000/mL) Neb 80 ML in Sodium Chlor 0.9% Inj 20 ML NEB SCH (17:00)
[2018-01-14] MEDS ORDERED: Labetalol HCl Inj 100 MG/20 ML Vial IV.PUSH PRN (17:45)
[2018-01-15] MEDS ORDERED: Epoprostenol (30,000/mL) Neb 60 ML in Sodium Chlor 0.9% Inj 40 ML NEB SCH (01:00)
[2018-01-15] MEDS: Oral Hygiene Kit OROPHARYNG SCH ×4 (01:25→17:21)
[2018-01-15] MEDS: Insulin NovoLOG Aspart Correctional Sugar Inj SQ SCH ×4 (01:25→17:47)
[2018-01-15] MEDS: Piperacil/Tazo 4.5 GM Premix 4.5 GM/100 ML BAG IV.SIG SCH ×4 (04:11→23:02)
[2018-01-15] MEDS: Methadone 10 MG Tablet PO SCH ×2 (04:12→14:07)
[2018-01-15] MEDS: chlordiazePOXIDE 25 MG Capsule PO SCH ×3 (04:14→17:21)
--- NOTE | 2018-01-15 04:18 | XR ---
EXAM DATE: 01/15/2018 4:05 AM EST AGE/SEX: 37 years / Male INDICATIONS: Respiratory failure. CLINICAL DATA: This is the patient's subsequent encounter. Patient reports that signs and symptoms h ave been present for 1 week and indicates a pain score of Nonresponsive. MEDICAL/SURGICAL HISTORY: . Respiratory failure. S/P heroin overdose Non-responsive. COMPAR[place]: [facility] [place] 1[place] SING[place], 01/12/[place]. . FINDINGS: Portable AP views of the chest demonstrate a normal size cardiac silhouette. ETT and nasogastric tube remain present. EKG lines overlie the patient. There is elevation the right hemidiaphragm with mild opacity at the right base. There is mild patchy airspace opacity in the left midlung zone. No pneumot horax or pleural effusion is identified. CONCLUSION: Mildly improved airspace opacity in the left midlung zone and right lung base. Electronically signed by: Yo Patricia MD 01/15/2018 4:17 AM EST
[2018-01-15] MEDS: Propofol 1000 mg/100 ml Inj 1,000 MG/100 ML BOTTLE IV.CONT PRN ×6 (04:42→21:39)
[2018-01-15 04:44] LABS: Baso # (Auto) 0.1 th/mm3 (0.0-0.2); Baso % (Auto) 0.6 % (0.0-2.0); Eos # (Auto) 0.3 th/mm3 (0.0-0.4); Eos % (Auto) 2.1 % (0.0-4.0); Hematocrit 34.4 % (39.0-51.0); Lymph # (Auto) 1.4 th/mm3 (1.0-4.8); Lymph % (Auto) 11.9 % (9.0-44.0); Mean Corpuscular HGB Conc 34.9 % (32.0-36.0); Mean Corpuscular Hemoglobin 33.1 pg (27.0-34.0); Mean Corpuscular Volume 94.8 fL (80.0-100.0); Mean Platelet Volume 8.6 fL (7.0-11.0); Mono # (Auto) 1.7 th/mm3 (0.0-0.9); Mono % (Auto) 14.3 % (0.0-8.0); Neut # (Auto) 8.6 th/mm3 (1.8-7.7); Neut % (Auto) 71.1 % (16.0-70.0); Platelet Count 374 th/mm3 (150-450); Red Blood Count 3.63 mil/mm3 (4.50-5.90); Red Cell Distribution Width 13.5 % (11.6-17.2); White Blood Count 12.1 th/mm3 (4.0-11.0)
[2018-01-15 05:05] LABS: Alanine Aminotransferase 22 U/L (12-78); Albumin 2.2 g/dL (3.4-5.0); Anion Gap 9 meq/L (5-15); Aspartate Aminotransferase 34 U/L (15-37); Blood Urea Nitrogen 20 mg/dL (7-18); Calcium 8.6 mg/dL (8.5-10.1); Carbon Dioxide 28.1 meq/L (21.0-32.0); Chloride 105 meq/L (98-107); Glomerular Filtration Rate Greater Than 89 mL/min (>89); Glucose,Random 101 mg/dL (74-106); Potassium 3.5 meq/L (3.5-5.1); Sodium 142 meq/L (136-145)
[2018-01-15 05:08] LABS: Alkaline Phosphatase 134 U/L (45-117); Total Protein 7.1 g/dL (6.4-8.2)
[2018-01-15 05:42] LABS: ABG Base Excess 2.2 mmol/L (-2-2); ABG PCO2 43 mmHg (38-42); ABG PO2 74 mmHg (61-120)
[2018-01-15] MEDS: Vancomycin Inj 2,000 MG in Sodium Chlor 0.9% Inj 500 ML IV.SIG SCH ×2 (08:00→20:59)
[2018-01-15] MEDS: Famotidine PF Inj 20 MG/2 ML Vial IV.PUSH SCH ×2 (08:01→20:59)
[2018-01-15] MEDS: Enoxaparin Inj 40 MG/0.4 ML Syringe SQ SCH (08:01)
[2018-01-15] MEDS: Senna/Docusate Sodium 8.6/50 MG Tablet PO SCH ×2 (08:01→20:59)
[2018-01-15] MEDS: Beneprotein Powder Packet G-TUBE SCH ×3 (08:37→17:21)
[2018-01-15] MEDS ORDERED: Pharmacy Ordered Lab Info OTHER ONE (08:45)
[2018-01-15] MEDS ORDERED: Epoprostenol (30,000/mL) Neb 40 ML in Sodium Chlor 0.9% Inj 60 ML NEB SCH (09:00)
[2018-01-15] MEDS: Chlorhexidine 0.12% Oral Kit 15 ML UDC OROPHARYNG SCH ×2 (10:06→20:58)
[2018-01-15] MEDS: fentaNYL 10 mcg/mL Premix Drip 2,500 MCG/250 ML BAG IV.SIG PRN (10:55)
--- NOTE | 2018-01-15 12:54 | P.PNID ---
Subjective Remarks: Patient is on the ventilator and is not responsive. Sedated. On roto bed. Copious secretions noted. Continues to have low-grade fever. Blood culture from 01/06 as no growth. Sputum culture pending. 37-year-old white male who was brought in to the emergency department when he was found down by a friend. The patient was noted to have overdosed on drugs. He was noted to have used IV heroin. In the emergency department, his temperature was normal. Chest x-ray was performed and showed an elevation of the right hemidiaphragm and right lower lobe consolidation versus atelectasis and small to moderate-sized right pleural effusion. The white blood cell count was elevated at 14.3. Blood cultures obtained on admission have Staph coagulase negative. Past Medical History: PAST MEDICAL HISTORY: Intravenous drug abuse. Allergies/Adverse Reactions: Allergies No Allergy Information Available Allergy (Unverified 01/05/18 03:22) UTO Objective Vital Signs 01/14/18 13:00 01/14/18 14:00 01/14/18 14:09 Temperature Pulse Rate 77 81 80 Respiratory Rate 10 L 10 L 19 Blood Pressure 135/82 139/86 Pulse Oximetry 94 L 97 92 L 01/14/18 15:00 01/14/18 16:00 01/14/18 16:18 Temperature 99.4 F Pulse Rate 82 80 Respiratory Rate 14 11 L 10 L Blood Pressure 145/92 H 142/84 H Pulse Oximetry 94 L 94 L 92 L 01/14/18 17:00 01/14/18 18:00 01/14/18 19:00 Temperature Pulse Rate 76 78 80 Respiratory Rate 11 L 13 28 H Blood Pressure 133/85 137/84 145/92 H Pulse Oximetry 92 L 92 L 93 L 01/14/18 20:00 01/14/18 20:06 01/14/18 21:00 Temperature 100.1 F H Pulse Rate 92 H 91 H 91 H Respiratory Rate 30 H 30 H 27 H Blood Pressure 153/89 H 127/73 Pulse Oximetry 92 L 93 L 93 L 01/14/18 22:00 01/14/18 23:00 01/15/18 00:00 Temperature Pulse Rate 80 79 75 Respiratory Rate 11 L 17 19 Blood Pressure 145/92 H 143/96 H 145/92 H Pulse Oximetry 93 L 92 L 95 01/15/18 00:15 01/15/18 01:00 01/15/18 02:00 Temperature 100.2 F H Pulse Rate 76 80 83 Respiratory Rate 13 14 16 Blood Pressure 144/83 H 126/68 Pulse Oximetry 95 93 L 93 L 01/15/18 03:00 01/15/18 04:00 01/15/18 05:00 Temperature 100.1 F H Pulse Rate 82 80 82 Respiratory Rate 17 13 20 Blood Pressure 149/93 H 135/78 140/76 Pulse Oximetry 93 L 95 90 L 01/15/18 06:00 01/15/18 07:00 01/15/18 08:00 Temperature 98.2 F Pulse Rate 78 74 71 Respiratory Rate 21 21 20 Blood Pressure 138/85 139/92 H 129/79 Pulse Oximetry 91 L 92 L 93 L 01/15/18 08:37 01/15/18 09:00 01/15/18 10:00 Temperature Pulse Rate 71 71 Respiratory Rate 22 11 L 21 Blood Pressure 121/75 125/77 Pulse Oximetry 92 L 91 L 89 L 01/15/18 11:00 01/15/18 12:00 Temperature 99.7 F H Pulse Rate 74 77 Respiratory Rate 21 24 Blood Pressure 136/86 141/90 H Pulse Oximetry 91 L 91 L Intake & Output 01/14/18 01/15/18 01/15/18 18:59 06:59 18:59 Intake Total 1220 / 1220 1212 / 1212 1070 / 1070 Output Total 600 / 600 325 / 325 Balance 620 / 620 887 / 887 1070 / 1070 Intake: IV 1220 / 1220 1020 / 1020 1070 / 1070 Diprivan 1000 mg/100 ml Inj 1, 300 / 300 200 / 200 200 / 200 000 mg In 100 ml @ 5 MCG/KG/MIN 2.585 mls/hr IV.CONT TITRATE PRN Rx#:[id number] Zosyn 4.5 GM Premix 4.5 gm In 200 / 200 200 / 200 100 / 100 100 ml @ 200 mls/hr IV.SIG Q6H [facility] Rx#:[id number] Vancomycin Inj 2,000 MG In NS 520 / 520 520 / 520 520 / 520 Inj 500 ML @ 260 mls/hr IV.SIG Q12H [facility] Rx#:[id number] fentaNYL 10 mcg/mL Premix Drip 250 / 250 2,500 mcg In 250 ml @ 50 MCG/HR 5 mls/hr IV.SIG TITRATE PRN Rx #:[id number] Flolan (30,000 ng/mL) Neb 80 ML 200 / 200 100 / 100 In NS Inj 20 ML @ 5 mls/hr NEB Q8H [facility] Rx#:[id number] Tube Feeding 192 / 192 Output: Urine 500 / 500 Urine Amount (Catheter) 325 / 325 Indwelling Urethral Catheter 325 / 325 Gastric Drainage 100 / 100 Orogastric Tube 100 / 100 Other: Date of Last Bowel Movement 01/13/18 01/14/18 01/14/18 # Bowel Movements 0 01/14/18 15:15 Sputum - Endotracheal Gram Stain - Final 01/14/18 15:15 Sputum - Endotracheal Sputum Culture - Pending Lab - Hematology Results 01/14/18 01/15/18 04:23 04:33 WBC 15.1 H 12.1 H RBC 3.77 L 3.63 L Hgb 12.4 L 12.0 L Hct 35.8 L 34.4 L MCV 94.9 94.8 MCH 33.0 33.1 MCHC 34.8 34.9 RDW 13.5 13.5 Plt Count 349 374 MPV 8.9 8.6 Prelim Diff (Auto) [employer] Neut % (Auto) 77.6 H 71.1 H Lymph % (Auto) 9.2 11.9 [place] % (Auto) 12.1 H 14.3 H Eos % (Auto) 0.7 2.1 Baso % (Auto) 0.4 0.6 Neut # (Auto) 11.7 H 8.6 H Lymph # (Auto) 1.4 1.4 [place] # (Auto) 1.8 H 1.7 H Eos # (Auto) 0.1 0.3 Baso # (Auto) 0.1 0.1 WBC Differential . . Differential Comment Auto diff final Auto diff final Lab - Chemistry Results 01/13/18 01/13/18 01/14/18 17:13 23:27 04:23 Sodium 140 Potassium 3.5 Chloride 105 Carbon Dioxide 27.1 Anion Gap 8 BUN 18 Creatinine 0.54 L Estimated GFR Greater than 89 POC Glucose 115 H 136 H Random Glucose 103 Calcium 9.3 Total Bilirubin 0.9 AST 25 ALT 20 Alkaline Phosphatase 139 H Total Protein 7.1 Albumin 2.2 L 01/14/18 01/14/18 01/15/18 10:41 17:22 01:23 Sodium Potassium Chloride Carbon Dioxide Anion Gap BUN Creatinine Estimated GFR POC Glucose 102 90 97 Random Glucose Calcium Total Bilirubin AST ALT Alkaline Phosphatase Total Protein Albumin 01/15/18 01/15/18 04:33 11:24 Sodium 142 Potassium 3.5 Chloride 105 Carbon Dioxide 28.1 Anion Gap 9 BUN 20 H Creatinine 0.60 Estimated GFR Greater than 89 POC Glucose 101 Random Glucose 101 Calcium 8.6 Total Bilirubin 1.0 AST 34 ALT 22 Alkaline Phosphatase 134 H Total Protein 7.1 Albumin 2.2 L Imaging: ITS Impressions Head CT 01/05/18 05:01 CONCLUSION: 1. No acute intracranial findings. 2. Air-fluid levels in the right maxillary and sphenoid sinuses suggesting possible acute sinusitis versus air-fluid levels related to intubation.. . Chest CT 01/08/18 00:00 CONCLUSION: 1. Increasing airspace disease especially in both upper lobes. 2. Persistent dense consolidation in the lower lobes without significant improvement. 3. Increasing right pleural effusion. Abdomen X-Ray 01/12/18 00:00 CONCLUSION: Normal bowel gas pattern. No concerning calcifications seen. Chest X-Ray 01/15/18 05:00 CONCLUSION: Mildly improved airspace opacity in the left midlung zone and right lung base. Physical Exam: PHYSICAL EXAMINATION: GENERAL: On the ventilator. Unresponsive. HEENT: The sclerae are nonicteric. Mild scleral edema. No icterus. Oropharynx intubated. LUNGS: Good air movement bilateral. HEART: Regular S1, S2, without murmurs, rubs or gallops. ABDOMEN: Bowel sounds present. Soft. EXTREMITIES: No clubbing or cyanosis or edema. No embolic lesions visible. SKIN: No diffuse rash. NEUROLOGIC: Unable to assess. PSYCHIATRIC: Unable to assess. Assessment and Plan - Plan IMPRESSION: 1. Pneumonia. 2. Bacteremia due to Staphylococcus coag negative. Repeat blood cultures have no growth. This possibly could be contamination. 3. Acute respiratory failure. 4. Intravenous drug use. 5. Probable aspiration. RECOMMENDATIONS: 1. Continue piperacillin/tazobactam. 2. Continue vancomycin. 3. Monitor temperature. 4. Follow sputum culture. 5. Monitor clinical response.
[2018-01-15] MEDS: Epoprostenol (30,000/mL) Neb 60 ML in Sodium Chlor 0.9% Inj 40 ML NEB SCH (13:07)
--- NOTE | 2018-01-15 17:44 | P.PNCC ---
Subjective Subjective Remarks/Hospital Course: 37-year-old male who is brought to [facility] emergency department after friends contacted [facility] due to decreased mental status with suspected heroin overdose. He had used heroin earlier in the evening. [facility] reportedly found him laying in emesis with a thready pulse. They gave him sequential doses of Narcan to a total of 2.4 mg IV at which point he became more awake and alert. He then had multiple episodes of vomiting in route. NG tube was placed by the paramedics and they aspirated gastric contents and then removed s NG prior to arrival. His room air sats were reportedly 84% and he was placed on NR. Patient told Dr. Lovett that this was his first time using heroin and that he injected it. CXR demonstrated RLL opacity. He was started on Unasyn for aspiration pneumonia and given nebs. He eventually was intubated due to hypoxia with sats in high 80s despite nonrebreather. [employer] consulted for admission. 01/06: Remains sedated and intubated, requires PEEP 12 and FiO2 70%, will try to wean these today if tolerated. 01/07: Agitated overnight and this morning, 2 episodes where the patient bit down on ETT, desaturated, and became unstable. Not tolerating pressure support trials. 01/08: Remains sedated, orally intubated on mechanical ventilation. PEEP remains at +12. CT chest done today shows worsening consolidations. Pleural effusion. 01/09: Remains critically ill with severe bilateral lower lobe consolidated pneumonias. Requiring markedly elevated mean airway pressure still. Patient is nutritionally depleted and not responding well to our aggressive medical treatment. 01/10: Continued requirements for markedly elevated fractional inspiratory oxygen concentration. Continued dense consolidation in both lower lobes PEEP reduced to avoid overexpansion of upper lobes. 01/11: Converted to airway pressure release ventilation because of inability to oxygenate adequately. We will probably have to add Flolan. Lengthy discussion with family about the severity of his respiratory problems and pneumonia. 01/12: Some progress but remains with high A-aO2 gradient. ET tube above clavicles; repositioned. Copious foul secretions. High requirement requirements for analgesia and sedation due to alcohol history. Will continue methadone and start scheduled Librium in an attempt to lower the intravenous requirements. 01/13: Remains sedated, orally intubated on mechanical ventilation. 01/14: Remains sedated, orally intubated on mechanical ventilation. Remains on APRV mode. On inhaled Flolan. 01/15: Remains sedated, intubated on AP RV mode mechanical ventilation. Inhaled Flolan titrated down to 30 ng/kg/min. Placed on rotarest bed yesterday. Starting Lasix to mobilize fluid in view of positive fluid balance. Objective Vital Signs / I&O: Vital Signs 01/14/18 18:00 01/14/18 19:00 01/14/18 20:00 Temperature 100.1 F H Pulse Rate 78 80 92 H Respiratory Rate 13 28 H 30 H Blood Pressure 137/84 145/92 H 153/89 H Pulse Oximetry 92 L 93 L 92 L 01/14/18 20:06 01/14/18 21:00 01/14/18 22:00 Temperature Pulse Rate 91 H 91 H 80 Respiratory Rate 30 H 27 H 11 L Blood Pressure 127/73 145/92 H Pulse Oximetry 93 L 93 L 93 L 01/14/18 23:00 01/15/18 00:00 01/15/18 00:15 Temperature Pulse Rate 79 75 76 Respiratory Rate 17 19 13 Blood Pressure 143/96 H 145/92 H Pulse Oximetry 92 L 95 95 01/15/18 01:00 01/15/18 02:00 01/15/18 03:00 Temperature 100.2 F H Pulse Rate 80 83 82 Respiratory Rate 14 16 17 Blood Pressure 144/83 H 126/68 149/93 H Pulse Oximetry 93 L 93 L 93 L 01/15/18 04:00 01/15/18 05:00 01/15/18 06:00 Temperature 100.1 F H Pulse Rate 80 82 78 Respiratory Rate 13 20 21 Blood Pressure 135/78 140/76 138/85 Pulse Oximetry 95 90 L 91 L 01/15/18 07:00 01/15/18 08:00 01/15/18 08:37 Temperature 98.2 F Pulse Rate 74 71 Respiratory Rate 21 20 22 Blood Pressure 139/92 H 129/79 Pulse Oximetry 92 L 93 L 92 L 01/15/18 09:00 01/15/18 10:00 01/15/18 11:00 Temperature Pulse Rate 71 71 74 Respiratory Rate 11 L 21 21 Blood Pressure 121/75 125/77 136/86 Pulse Oximetry 91 L 89 L 91 L 01/15/18 12:00 01/15/18 13:00 01/15/18 14:00 Temperature 99.7 F H Pulse Rate 77 76 77 Respiratory Rate 24 21 21 Blood Pressure 141/90 H 133/82 128/72 Pulse Oximetry 91 L 92 L 92 L 01/15/18 15:00 01/15/18 15:45 01/15/18 16:00 Temperature 98.5 F Pulse Rate 78 75 Respiratory Rate 21 25 H 32 H Blood Pressure 128/78 157/98 H Pulse Oximetry 92 L 92 L 91 L 01/15/18 17:00 Temperature Pulse Rate 78 Respiratory Rate 20 Blood Pressure 139/75 Pulse Oximetry 92 L Intake & Output 01/14/18 01/15/18 01/15/18 18:59 06:59 18:59 Intake Total 1220 / 1220 1212 / 1212 1270 / 1270 Output Total 600 / 600 325 / 325 Balance 620 / 620 887 / 887 1270 / 1270 Intake: IV 1220 / 1220 1020 / 1020 1270 / 1270 Diprivan 1000 mg/100 ml Inj 1, 300 / 300 200 / 200 400 / 400 000 mg In 100 ml @ 5 MCG/KG/MIN 2.585 mls/hr IV.CONT TITRATE PRN Rx#:[id number] Zosyn 4.5 GM Premix 4.5 gm In 200 / 200 200 / 200 100 / 100 100 ml @ 200 mls/hr IV.SIG Q6H [facility] Rx#:[id number] Vancomycin Inj 2,000 MG In NS 520 / 520 520 / 520 520 / 520 Inj 500 ML @ 260 mls/hr IV.SIG Q12H [facility] Rx#:[id number] fentaNYL 10 mcg/mL Premix Drip 250 / 250 2,500 mcg In 250 ml @ 50 MCG/HR 5 mls/hr IV.SIG TITRATE PRN Rx #:[id number] Flolan (30,000 ng/mL) Neb 80 ML 200 / 200 100 / 100 In NS Inj 20 ML @ 5 mls/hr NEB Q8H [facility] Rx#:[id number] Tube Feeding 192 / 192 Output: Urine 500 / 500 Urine Amount (Catheter) 325 / 325 Indwelling Urethral Catheter 325 / 325 Gastric Drainage 100 / 100 Orogastric Tube 100 / 100 Other: Date of Last Bowel Movement 01/13/18 01/14/18 01/14/18 # Bowel Movements 0 Result Diagrams: 01/15/18 04:33 01/15/18 04:33 Imaging: Impressions Chest X-Ray 01/15/18 05:00 CONCLUSION: Mildly improved airspace opacity in the left midlung zone and right lung base. Objective Remarks: GEN: Intubated and sedated, ill appearing HEENT: NCAT, pupils 2mm, reactive to light NECK: Trachea midline, orotracheal intubation, neck supple CARDIO: Regular rate and rhythm, NL S1S2, no JVD. PULM: Air entry markedly decreased bilaterally at bases. Profuse bilateral rhonchi and many mobile secretions persist. ABD/GI: Soft, non-distended. No guarding, bowel sounds are active. EXT/MSK: 1+ peripheral edema, warm, adequately perfused. SKIN: No rashes or lesions, clammy. NEURO: Sedated, orally intubated on mechanical ventilation. Withdraws 4 limbs to noxious stimulation. Opens eyes but does not track. Attempts to squeeze with left hand.Strong cough and gag reflex. Assessment and Plan - Problem List (1) Heroin overdose Code(s): T40.1X1A - Poisoning by heroin, accidental (unintentional), initial encounter Status: Acute (2) Polysubstance abuse Code(s): F19.10 - Other psychoactive substance abuse, uncomplicated Status: Chronic (3) Cocaine abuse Code(s): F14.10 - Cocaine abuse, uncomplicated Status: Acute (4) Elevated ETOH level Code(s): R78.0 - Finding of alcohol in blood Status: Acute (5) Marijuana abuse Code(s): F12.10 - Cannabis abuse, uncomplicated Status: Acute (6) TORREY (acute kidney injury) Code(s): N17.9 - Acute kidney failure, unspecified Status: Acute (7) Severe sepsis Code(s): A41.9 - Sepsis, unspecified organism; R65.20 - Severe sepsis without septic shock Status: Acute (8) Acute respiratory failure with hypoxia Code(s): J96.01 - Acute respiratory failure with hypoxia Status: Acute (9) Aspiration pneumonia Code(s): J69.0 - Pneumonitis due to inhalation of food and vomit Status: Acute (10) Vomiting Code(s): R11.10 - Vomiting, unspecified Status: Acute (11) Hyperglycemia Code(s): R73.9 - Hyperglycemia, unspecified Status: Acute (12) Protein-calorie malnutrition, moderate Code(s): E44.0 - Moderate protein-calorie malnutrition Status: Acute - Assessment and Plan Plan: NEURO: Heroin overdose Polysubstance abuse (marijuana, opiate, cocaine) Alcohol level was 61 on admission. Propofol and fentanyl for sedation-- PRN ativan and precedex gtt as patient becomes extremely agitated with even slight drop in sedation Thiamine/multivitamin supplementation CTH negative Tolerance to narcotic analgesia implies chronic narcotic use On methadone to wean fentanyl. Continue librium RESP: Acute hypoxemic respiratory failure Acute aspiration pneumonia Intubated in ED 01/05 due to hypoxia. APRV mode mech ventilation, inhaled flolan titrated down to 30 ng/kg/min. DuoNeb every 6 hours. Albuterol every 2 hours as needed. CXR shows RLL opacity, likely aspiration pneumonia (see below) CT chest with dense bilateral basilar consolidations and small right pleural effusion CV: Telemetry and BP monitoring in ICU GI: Vomiting - likely secondary to opioid withdrawal Continue TFs at goal Zofran prn. FEN/RENAL: TORREY - suspect pre-renal secondary to overdose and sepsis, improved CPK is normal Urine output adequate Starting Lasix 40 mg IV daily to mobilize fluid on 01/15 in view of positive fluid balance. ID: Severe Sepsis secondary to aspiration pneumonia Continue for aspiration. MRSA swab negative Blood cultures from 01/05 growing staph epidermidis in both bottles, repeat cultures sent 01/06 no growth at 1 day Consulted ID for antibiotic management in view of worsening respiratory status/ sepsis. On zosyn/ Vancomycin IV. HEME: No acute hematologic issues. Coags are normal. ENDO: Acute hyperglycemia Monitor bedside glucose every 6 hours and administer low-dose insulin sliding scale as indicated. Poor control continues PROPH: -PPI -SCDs/ lovenox ACCESS: Peripheral IV in left EJ OVERALL: This patient remains critically ill requiring ventilator support for aspiration pneumonia and heroin drug overdose. He requires continued ICU level of care. His early response to aggressive medical therapy has been poor, undoubtedly related to chronic debilitation and poor baseline nutritional status. His long-term prognosis is guarded, largely due to concerns about his nutritional and immune status. Critical care time 40 minutes aside from procedures.
[2018-01-16] MEDS: Insulin NovoLOG Aspart Correctional Sugar Inj SQ SCH ×4 (00:17→18:45)
[2018-01-16] MEDS: Oral Hygiene Kit OROPHARYNG SCH ×5 (00:17→23:41)
[2018-01-16] MEDS: Epoprostenol (30,000/mL) Neb 60 ML in Sodium Chlor 0.9% Inj 40 ML NEB SCH ×4 (00:36→20:12)
[2018-01-16] MEDS: Methadone 10 MG Tablet PO SCH ×2 (02:15→15:42)
[2018-01-16] MEDS: chlordiazePOXIDE 25 MG Capsule PO SCH ×3 (02:15→17:29)
[2018-01-16] MEDS: Propofol 1000 mg/100 ml Inj 1,000 MG/100 ML BOTTLE IV.CONT PRN ×6 (02:16→21:34)
[2018-01-16] MEDS: Piperacil/Tazo 4.5 GM Premix 4.5 GM/100 ML BAG IV.SIG SCH ×4 (04:05→23:40)
[2018-01-16 04:46] LABS: Glomerular Filtration Rate Greater Than 89 mL/min (>89)
[2018-01-16 05:06] LABS: ABG Base Excess 5.5 mmol/L (-2-2); ABG PCO2 44 mmHg (38-42); ABG PO2 120 mmHg (61-120)
[2018-01-16] MEDS: Senna/Docusate Sodium 8.6/50 MG Tablet PO SCH ×2 (08:17→20:28)
[2018-01-16] MEDS: fentaNYL 10 mcg/mL Premix Drip 2,500 MCG/250 ML BAG IV.SIG PRN (08:18)
[2018-01-16] MEDS: Enoxaparin Inj 40 MG/0.4 ML Syringe SQ SCH (08:19)
[2018-01-16] MEDS: Beneprotein Powder Packet G-TUBE SCH ×3 (08:19→17:29)
[2018-01-16] MEDS: Chlorhexidine 0.12% Oral Kit 15 ML UDC OROPHARYNG SCH ×2 (08:19→19:35)
[2018-01-16] MEDS: Famotidine PF Inj 20 MG/2 ML Vial IV.PUSH SCH ×2 (08:20→20:28)
[2018-01-16] MEDS ORDERED: Pharmacy Ordered Lab Info OTHER ONE (08:45)
[2018-01-16] MEDS: Vancomycin Inj 2,000 MG in Sodium Chlor 0.9% Inj 500 ML IV.SIG SCH ×2 (09:05→20:29)
--- NOTE | 2018-01-16 12:52 | P.PNCC ---
Subjective Subjective Remarks/Hospital Course: 37-year-old male who is brought to [facility] emergency department after friends contacted [facility] due to decreased mental status with suspected heroin overdose. He had used heroin earlier in the evening. [facility] reportedly found him laying in emesis with a thready pulse. They gave him sequential doses of Narcan to a total of 2.4 mg IV at which point he became more awake and alert. He then had multiple episodes of vomiting in route. NG tube was placed by the paramedics and they aspirated gastric contents and then removed s NG prior to arrival. His room air sats were reportedly 84% and he was placed on NR. Patient told Dr. Lovett that this was his first time using heroin and that he injected it. CXR demonstrated RLL opacity. He was started on Unasyn for aspiration pneumonia and given nebs. He eventually was intubated due to hypoxia with sats in high 80s despite nonrebreather. Trolley Collector consulted for admission. 01/06: Remains sedated and intubated, requires PEEP 12 and FiO2 70%, will try to wean these today if tolerated. 01/07: Agitated overnight and this morning, 2 episodes where the patient bit down on ETT, desaturated, and became unstable. Not tolerating pressure support trials. 01/08: Remains sedated, orally intubated on mechanical ventilation. PEEP remains at +12. CT chest done today shows worsening consolidations. Pleural effusion. 01/09: Remains critically ill with severe bilateral lower lobe consolidated pneumonias. Requiring markedly elevated mean airway pressure still. Patient is nutritionally depleted and not responding well to our aggressive medical treatment. 01/10: Continued requirements for markedly elevated fractional inspiratory oxygen concentration. Continued dense consolidation in both lower lobes PEEP reduced to avoid overexpansion of upper lobes. 01/11: Converted to airway pressure release ventilation because of inability to oxygenate adequately. We will probably have to add Flolan. Lengthy discussion with family about the severity of his respiratory problems and pneumonia. 01/12: Some progress but remains with high A-aO2 gradient. ET tube above clavicles; repositioned. Copious foul secretions. High requirement requirements for analgesia and sedation due to alcohol history. Will continue methadone and start scheduled Librium in an attempt to lower the intravenous requirements. 01/13: Remains sedated, orally intubated on mechanical ventilation. 01/14: Remains sedated, orally intubated on mechanical ventilation. Remains on APRV mode. On inhaled Flolan. 01/15: Remains sedated, intubated on AP RV mode mechanical ventilation. Inhaled Flolan titrated down to 30 ng/kg/min. Placed on rotarest bed yesterday. Starting Lasix to mobilize fluid in view of positive fluid balance. 01/16: Dense consolidation right lower lobe causing severe shunting and hypoxemia. He will likely require pronating to drain the basilar lower lobes. Patient remains critically ill with an unrelenting bilateral pneumonia proving refractory to our best antibiotic and ventilatory interventions. Objective Vital Signs / I&O: Vital Signs 01/15/18 13:00 01/15/18 14:00 01/15/18 15:00 Temperature Pulse Rate 76 77 78 Respiratory Rate 21 21 21 Blood Pressure 133/82 128/72 128/78 Pulse Oximetry 92 L 92 L 92 L 01/15/18 15:45 01/15/18 16:00 01/15/18 17:00 Temperature 98.5 F Pulse Rate 75 78 Respiratory Rate 25 H 32 H 20 Blood Pressure 157/98 H 139/75 Pulse Oximetry 92 L 91 L 92 L 01/15/18 18:00 01/15/18 19:00 01/15/18 20:00 Temperature 101.0 F H Pulse Rate 76 84 85 Respiratory Rate 14 14 17 Blood Pressure 145/89 H 149/89 H 142/85 H Pulse Oximetry 92 L 91 L 92 L 01/15/18 20:49 01/15/18 21:00 01/15/18 22:00 Temperature Pulse Rate 84 86 Respiratory Rate 20 16 21 Blood Pressure 129/73 129/66 Pulse Oximetry 94 L 93 L 91 L 01/15/18 23:00 01/16/18 00:00 01/16/18 00:06 Temperature Pulse Rate 82 81 Respiratory Rate 11 L 14 10 L Blood Pressure 140/88 130/69 Pulse Oximetry 91 L 94 L 94 L 01/16/18 01:00 01/16/18 02:00 01/16/18 03:00 Temperature Pulse Rate 81 79 78 Respiratory Rate 12 11 L 12 Blood Pressure 127/69 130/71 132/78 Pulse Oximetry 92 L 92 L 94 L 01/16/18 03:38 01/16/18 04:00 01/16/18 05:00 Temperature 100.3 F H Pulse Rate 80 77 Respiratory Rate 10 L 10 L 11 L Blood Pressure 137/82 136/83 Pulse Oximetry 94 L 95 92 L 01/16/18 06:00 01/16/18 07:00 01/16/18 07:45 Temperature Pulse Rate 74 79 Respiratory Rate 11 L 21 21 Blood Pressure 146/89 H 134/70 Pulse Oximetry 84 L 92 L 93 L 01/16/18 08:00 01/16/18 09:00 01/16/18 10:00 Temperature 99.4 F 100.3 F H Pulse Rate 78 79 84 Respiratory Rate 21 21 21 Blood Pressure Pulse Oximetry 92 L 93 L 92 L 01/16/18 11:00 01/16/18 11:16 01/16/18 12:00 Temperature Pulse Rate 84 87 Respiratory Rate 21 22 21 Blood Pressure Pulse Oximetry 91 L 92 L 92 L Intake & Output 01/15/18 01/16/18 01/16/18 18:59 06:59 18:59 Intake Total 1602 / 1602 1302 / 1302 350 / 350 Output Total 500 / 500 2700 / 2700 Balance 1102 / 1102 -1398 / -1398 350 / 350 Weight 97.6 kg Intake: IV 1370 / 1370 1120 / 1120 350 / 350 Diprivan 1000 mg/100 ml Inj 1, 400 / 400 250 / 250 100 / 100 000 mg In 100 ml @ 5 MCG/KG/MIN 2.585 mls/hr IV.CONT TITRATE PRN Rx#:[id number] Zosyn 4.5 GM Premix 4.5 gm In 200 / 200 200 / 200 100 ml @ 200 mls/hr IV.SIG Q6H VU Rx#:[id number] Vancomycin Inj 2,000 MG In NS 520 / 520 520 / 520 Inj 500 ML @ 260 mls/hr IV.SIG Q12H VU Rx#:[id number] fentaNYL 10 mcg/mL Premix Drip 250 / 250 250 / 250 2,500 mcg In 250 ml @ 50 MCG/HR 5 mls/hr IV.SIG TITRATE PRN Rx #:[id number] Flolan (30,000 ng/mL) Neb 60 ML 100 / 100 In NS Inj 40 ML @ 5 mls/hr NEB Q8H VU Rx#:[id number] Tube Feeding 232 / 232 182 / 182 Output: Urine Amount (Catheter) 500 / 500 2700 / 2700 Indwelling Urethral Catheter 500 / 500 2700 / 2700 Other: Date of Last Bowel Movement 01/13/18 01/14/18 01/14/18 # Bowel Movements 0 Result Diagrams: 01/15/18 04:33 01/16/18 04:17 Objective Remarks: GEN: Intubated and sedated, ill appearing HEENT: NCAT, pupils 2mm, reactive to light. Trachea midline, orotracheal intubation, neck supple CARDIO: Tachycardic rate and rhythm, NL S1S2, no JVD. PULM: Air entry markedly decreased in bases. Continued bilateral rhonchi and many mobile secretions persist. ABD/GI: Soft, non-distended. No guarding, bowel sounds are active. No tenderness. EXT/MSK: 1+ peripheral edema, warm, adequately perfused. SKIN: No rashes or lesions. Well perfused. NEURO: Sedated, orally intubated on mechanical ventilation. Withdraws 4 limbs to noxious stimulation. Opens eyes but does not track. Attempts to squeeze with left hand intermittently. Strong cough and gag reflex persist. Assessment and Plan - Problem List (1) Heroin overdose Code(s): T40.1X1A - Poisoning by heroin, accidental (unintentional), initial encounter Status: Acute (2) Polysubstance abuse Code(s): F19.10 - Other psychoactive substance abuse, uncomplicated Status: Chronic (3) Cocaine abuse Code(s): F14.10 - Cocaine abuse, uncomplicated Status: Acute (4) Elevated ETOH level Code(s): R78.0 - Finding of alcohol in blood Status: Acute (5) Marijuana abuse Code(s): F12.10 - Cannabis abuse, uncomplicated Status: Acute (6) TORREY (acute kidney injury) Code(s): N17.9 - Acute kidney failure, unspecified Status: Acute (7) Severe sepsis Code(s): A41.9 - Sepsis, unspecified organism; R65.20 - Severe sepsis without septic shock Status: Acute (8) Acute respiratory failure with hypoxia Code(s): J96.01 - Acute respiratory failure with hypoxia Status: Acute (9) Aspiration pneumonia Code(s): J69.0 - Pneumonitis due to inhalation of food and vomit Status: Acute (10) Vomiting Code(s): R11.10 - Vomiting, unspecified Status: Acute (11) Hyperglycemia Code(s): R73.9 - Hyperglycemia, unspecified Status: Acute (12) Protein-calorie malnutrition, moderate Code(s): E44.0 - Moderate protein-calorie malnutrition Status: Acute - Assessment and Plan Plan: NEURO: Heroin overdose Polysubstance abuse (marijuana, opiate, cocaine) Alcohol level was 61 on admission. Propofol and fentanyl for sedation-- PRN ativan and precedex gtt as patient becomes extremely agitated with even slight drop in sedation Thiamine/multivitamin supplementation CTH negative Tolerance to narcotic analgesia implies chronic narcotic use On methadone to wean fentanyl. Continue librium. No further withdrawal symptomatology. RESP: Acute hypoxemic respiratory failure Acute aspiration pneumonia Intubated in ED 01/05 due to hypoxia. APRV mode mech ventilation, inhaled flolan titrated down to 30 ng/kg/min. DuoNeb every 6 hours. Albuterol every 2 hours as needed. CXR shows RLL opacity, likely aspiration pneumonia (see below) CT chest with dense bilateral basilar consolidations and small right pleural effusion Patient initially improved on APR V mode but is now deteriorating, may well require proning. CV: Telemetry and BP monitoring in ICU GI: Vomiting - likely secondary to opioid withdrawal Continue TFs at goal Zofran prn. Problem resolved. FEN/RENAL: TORREY - suspect pre-renal secondary to overdose and sepsis, improved CPK is normal Urine output adequate Starting Lasix 40 mg IV daily to mobilize fluid on 01/15 in view of positive fluid balance. ID: Severe Sepsis secondary to aspiration pneumonia Continue for aspiration. MRSA swab negative Blood cultures from 01/05 growing staph epidermidis in both bottles, repeat cultures sent 01/06 no growth at 1 day Consulted ID for antibiotic management in view of worsening respiratory status/ sepsis. On zosyn/ Vancomycin IV. Organism eludes us. HEME: No acute hematologic issues aside from leukocytosis.. Coags are normal. ENDO: Acute hyperglycemia Monitor bedside glucose every 6 hours and administer low-dose insulin sliding scale as indicated. Poor diabetic control continues PROPH: -PPI -SCDs/ lovenox ACCESS: Peripheral IV in left EJ OVERALL: This patient remains critically ill requiring quite high levels of ventilator support for aspiration pneumonia and heroin drug overdose. He requires continued ICU level of care. His initial response to aggressive medical therapy has been poor, undoubtedly related to chronic debilitation and poor baseline nutritional status. His long-term prognosis is guarded, largely due to concerns about his nutritional and immune status. At this juncture he is failing bilevel ventilation and may require to be prone. Critical care time 45 minutes aside from procedures.
--- NOTE | 2018-01-16 17:28 | P.PCN ---
Date of procedure: 01/16/18 Procedure: Diagnosis: Hypoxia make respiratory failure, pneumonia Procedure: Therapeutic flexible bronchoscopy Narrative: Timeout performed and patient was suitably identified. Through an elbow and the side port of a ventilatory circuit the bronchoscope was delivered into the tracheobronchial tree. The patient is on mechanical ventilation and usual ICU devices are in place. Sedation is minimized such that we can produce vigorous coughing. The left tracheobronchial tree is inspected, branching anatomy is normal, all bronchial segments are widely patent. The mucosa is generally clean. The right tracheobronchial tree demonstrates a clean right upper lobe takeoff and subsegmental bronchi. The middle lobe orifice and the basilar segments have inspissated sputum which has been suctioned and sent for culture. Irrigation with normal saline was used to clean out all bronchial segments in the lower lobe and middle lobe. Bronchoscope was then removed and the elbow replaced with a regular circuit. Sputum is foul and dark in color.
[2018-01-17] MEDS: Insulin NovoLOG Aspart Correctional Sugar Inj SQ SCH ×4 (00:08→17:46)
[2018-01-17] MEDS: chlordiazePOXIDE 25 MG Capsule PO SCH ×3 (00:16→16:53)
[2018-01-17] MEDS: Propofol 1000 mg/100 ml Inj 1,000 MG/100 ML BOTTLE IV.CONT PRN ×6 (01:00→22:03)
[2018-01-17] MEDS: Methadone 10 MG Tablet PO SCH ×2 (03:35→14:24)
[2018-01-17] MEDS: Epoprostenol (30,000/mL) Neb 60 ML in Sodium Chlor 0.9% Inj 40 ML NEB SCH ×3 (04:02→20:58)
[2018-01-17] MEDS: Oral Hygiene Kit OROPHARYNG SCH ×3 (04:02→16:54)
[2018-01-17] MEDS: Piperacil/Tazo 4.5 GM Premix 4.5 GM/100 ML BAG IV.SIG SCH ×4 (04:56→23:48)
[2018-01-17 05:39] LABS: Baso # (Auto) 0.1 th/mm3 (0.0-0.2); Baso % (Auto) 0.4 % (0.0-2.0); Eos # (Auto) 0.3 th/mm3 (0.0-0.4); Eos % (Auto) 2.3 % (0.0-4.0); Hematocrit 34.6 % (39.0-51.0); Hemoglobin 11.6 gm/dL (13.0-17.0); Lymph # (Auto) 1.1 th/mm3 (1.0-4.8); Lymph % (Auto) 9.7 % (9.0-44.0); Mean Corpuscular HGB Conc 33.5 % (32.0-36.0); Mean Corpuscular Hemoglobin 32.3 pg (27.0-34.0); Mean Corpuscular Volume 96.3 fL (80.0-100.0); Mean Platelet Volume 8.9 fL (7.0-11.0); Mono # (Auto) 2.2 th/mm3 (0.0-0.9); Mono % (Auto) 18.5 % (0.0-8.0); Neut # (Auto) 8.1 th/mm3 (1.8-7.7); Neut % (Auto) 69.1 % (16.0-70.0); Platelet Count 353 th/mm3 (150-450); Red Blood Count 3.59 mil/mm3 (4.50-5.90); Red Cell Distribution Width 13.3 % (11.6-17.2); White Blood Count 11.8 th/mm3 (4.0-11.0)
[2018-01-17 06:07] LABS: Albumin 2.2 g/dL (3.4-5.0); Anion Gap 6 meq/L (5-15); Aspartate Aminotransferase 37 U/L (15-37); Blood Urea Nitrogen 19 mg/dL (7-18); Carbon Dioxide 30.4 meq/L (21.0-32.0); Chloride 101 meq/L (98-107); Glomerular Filtration Rate Greater Than 89 mL/min (>89); Glucose,Random 105 mg/dL (74-106); Potassium 3.6 meq/L (3.5-5.1); Sodium 137 meq/L (136-145)
[2018-01-17 06:09] LABS: Alanine Aminotransferase 30 U/L (12-78)
[2018-01-17 06:11] LABS: Alkaline Phosphatase 145 U/L (45-117)
--- NOTE | 2018-01-17 06:43 | XR ---
EXAM DATE: 01/17/2018 6:27 AM EST AGE/SEX: 37 years / Male INDICATIONS: Hypoxemia. Evaluate for pneumonia. CLINICAL DATA: This is the patient's subsequent encounter. Patient reports that signs and symptoms h ave been present for 1 week and indicates a pain score of Nonresponsive. MEDICAL/SURGICAL HISTORY: . IV drug user. Non-responsive. [place]PARISON: [facility] [place] 1[place] SING[place] AP[place]/15/2018. . FINDINGS: Portable AP view of the chest demonstrates a normal-sized cardiac silhouette. Endotracheal tube and n asogastric tube remain present and EKG lines overlie the patient. There is persistent elevation of th e right hemidiaphragm with opacity at the right lung base. No pneumothorax or definite effusion is id entified. The bones demonstrate no acute finding. CONCLUSION: No significant interval change is identified. There is persistent right basilar opacity representing either atelectasis or consolidation. Electronically signed by: Yo Patricia MD 01/17/2018 6:42 AM EST
[2018-01-17 07:15] LABS: ABG Base Excess 6.8 mmol/L (-2-2); ABG PCO2 52 mmHg (38-42); ABG PO2 115 mmHg (61-120)
[2018-01-17] MEDS: fentaNYL 10 mcg/mL Premix Drip 2,500 MCG/250 ML BAG IV.SIG PRN (07:51)
[2018-01-17] MEDS: Chlorhexidine 0.12% Oral Kit 15 ML UDC OROPHARYNG SCH ×2 (07:52→20:57)
[2018-01-17] MEDS: Beneprotein Powder Packet G-TUBE SCH ×3 (08:42→17:46)
[2018-01-17] MEDS: Enoxaparin Inj 40 MG/0.4 ML Syringe SQ SCH (08:42)
[2018-01-17] MEDS: Famotidine PF Inj 20 MG/2 ML Vial IV.PUSH SCH ×2 (08:42→20:57)
[2018-01-17] MEDS: Senna/Docusate Sodium 8.6/50 MG Tablet PO SCH ×2 (08:42→20:58)
[2018-01-17] MEDS: Vancomycin Inj 2,000 MG in Sodium Chlor 0.9% Inj 500 ML IV.SIG SCH ×2 (08:43→20:56)
--- NOTE | 2018-01-17 14:48 | P.PNCC ---
Subjective Subjective Remarks/Hospital Course: 37-year-old male who is brought to [facility] emergency department after friends contacted [facility] due to decreased mental status with suspected heroin overdose. He had used heroin earlier in the evening. [facility] reportedly found him laying in emesis with a thready pulse. They gave him sequential doses of Narcan to a total of 2.4 mg IV at which point he became more awake and alert. He then had multiple episodes of vomiting in route. NG tube was placed by the paramedics and they aspirated gastric contents and then removed s NG prior to arrival. His room air sats were reportedly 84% and he was placed on NR. Patient told Dr. Lovett that this was his first time using heroin and that he injected it. CXR demonstrated RLL opacity. He was started on Unasyn for aspiration pneumonia and given nebs. He eventually was intubated due to hypoxia with sats in high 80s despite nonrebreather. Undertaker Assistant consulted for admission. 01/06: Remains sedated and intubated, requires PEEP 12 and FiO2 70%, will try to wean these today if tolerated. 01/07: Agitated overnight and this morning, 2 episodes where the patient bit down on ETT, desaturated, and became unstable. Not tolerating pressure support trials. 01/08: Remains sedated, orally intubated on mechanical ventilation. PEEP remains at +12. CT chest done today shows worsening consolidations. Pleural effusion. 01/09: Remains critically ill with severe bilateral lower lobe consolidated pneumonias. Requiring markedly elevated mean airway pressure still. Patient is nutritionally depleted and not responding well to our aggressive medical treatment. 01/10: Continued requirements for markedly elevated fractional inspiratory oxygen concentration. Continued dense consolidation in both lower lobes PEEP reduced to avoid overexpansion of upper lobes. 01/11: Converted to airway pressure release ventilation because of inability to oxygenate adequately. We will probably have to add Flolan. Lengthy discussion with family about the severity of his respiratory problems and pneumonia. 01/12: Some progress but remains with high A-aO2 gradient. ET tube above clavicles; repositioned. Copious foul secretions. High requirement requirements for analgesia and sedation due to alcohol history. Will continue methadone and start scheduled Librium in an attempt to lower the intravenous requirements. 01/13: Remains sedated, orally intubated on mechanical ventilation. 01/14: Remains sedated, orally intubated on mechanical ventilation. Remains on APRV mode. On inhaled Flolan. 01/15: Remains sedated, intubated on AP RV mode mechanical ventilation. Inhaled Flolan titrated down to 30 ng/kg/min. Placed on rotarest bed yesterday. Starting Lasix to mobilize fluid in view of positive fluid balance. 01/16: Dense consolidation right lower lobe causing severe shunting and hypoxemia. He will likely require pronating to drain the basilar lower lobes. Patient remains critically ill with an unrelenting bilateral pneumonia proving refractory to our best antibiotic and ventilatory interventions. 01/17: Persistent shunting through consolidated right lower lobe is producing profound hypoxemia. Presently requiring roto-rest bed and markedly elevated mean airway pressures on mechanical ventilation. Sputum obtained during alveolar lavage of the right lower lobe yesterday is still pending. Patient remains critically ill and generally edematous. Objective Vital Signs / I&O: Vital Signs 01/16/18 15:00 01/16/18 15:18 01/16/18 16:00 Temperature 99.2 F Pulse Rate 85 85 Respiratory Rate 19 19 20 Blood Pressure Pulse Oximetry 93 L 93 L 92 L 01/16/18 17:00 01/16/18 17:20 01/16/18 18:00 Temperature Pulse Rate 113 H 93 H Respiratory Rate 45 H 21 Blood Pressure 162/88 H 144/71 H Pulse Oximetry 89 L 92 L 99 01/16/18 19:00 01/16/18 20:00 01/16/18 21:00 Temperature 100.0 F H Pulse Rate 87 87 84 Respiratory Rate Blood Pressure 139/74 140/73 140/75 Pulse Oximetry 100 99 98 01/16/18 21:20 01/16/18 22:00 01/16/18 23:00 Temperature Pulse Rate 87 87 Respiratory Rate 21 Blood Pressure 138/75 140/78 Pulse Oximetry 98 98 97 01/17/18 00:00 01/17/18 00:19 01/17/18 01:00 Temperature 100.0 F H Pulse Rate 87 87 Respiratory Rate 22 Blood Pressure 144/82 H 153/92 H Pulse Oximetry 97 98 98 01/17/18 02:00 01/17/18 03:00 01/17/18 04:00 Temperature 99.8 F H Pulse Rate 89 89 91 H Respiratory Rate Blood Pressure 156/91 H 154/81 H 156/87 H Pulse Oximetry 96 97 96 01/17/18 04:34 01/17/18 04:36 01/17/18 05:00 Temperature Pulse Rate 91 H 90 Respiratory Rate 28 H Blood Pressure 153/90 H 152/84 H Pulse Oximetry 99 99 96 01/17/18 06:00 01/17/18 07:00 01/17/18 07:46 Temperature Pulse Rate 93 H 89 Respiratory Rate 18 20 Blood Pressure 144/81 H Pulse Oximetry 96 96 96 01/17/18 08:00 01/17/18 09:00 01/17/18 10:00 Temperature 99.1 F Pulse Rate 87 84 84 Respiratory Rate 18 18 19 Blood Pressure Pulse Oximetry 95 95 96 01/17/18 11:00 01/17/18 11:17 01/17/18 12:00 Temperature 100.2 F H Pulse Rate 89 90 Respiratory Rate 19 20 20 Blood Pressure Pulse Oximetry 95 96 96 Intake & Output 01/16/18 01/17/18 01/17/18 18:59 06:59 18:59 Intake Total 1969 / 1970 1393 / 1393 1170 / 1170 Output Total 1850 / 1850 750 / 750 Balance 120 / 120 643 / 643 1170 / 1170 Intake: IV 1370 / 1370 1120 / 1120 1170 / 1170 Diprivan 1000 mg/100 ml Inj 1, 300 / 300 300 / 300 200 / 200 000 mg In 100 ml @ 5 MCG/KG/MIN 2.585 mls/hr IV.CONT TITRATE PRN Rx#:[id number] Zosyn 4.5 GM Premix 4.5 gm In 200 / 200 200 / 200 100 / 100 100 ml @ 200 mls/hr IV.SIG Q6H UV Rx#:[id number] Vancomycin Inj 2,000 MG In NS 520 / 520 520 / 520 520 / 520 Inj 500 ML @ 260 mls/hr IV.SIG Q12H VU Rx#:[id number] fentaNYL 10 mcg/mL Premix Drip 250 / 250 250 / 250 2,500 mcg In 250 ml @ 50 MCG/HR 5 mls/hr IV.SIG TITRATE PRN Rx #:[id number] Flolan (30,000 ng/mL) Neb 60 ML 100 / 100 100 / 100 100 / 100 In NS Inj 40 ML @ 5 mls/hr NEB Q8H VU Rx#:[id number] Tube Feeding 240 / 240 273 / 273 Water Bolus Amount 360 / 360 Output: Urine Amount (Catheter) 1849 750 / 750 Indwelling Urethral Catheter 1849 750 / 750 Gastric Drainage 0 / 0 Orogastric Tube 0 / 0 Other: Date of Last Bowel Movement 01/14/18 01/14/18 01/14/18 # Bowel Movements 0 Result Diagrams: 01/17/18 05:25 01/17/18 05:25 Objective Remarks: GEN: Intubated and sedated, ill appearing, encephalopathic. HEENT: Reactive pupils 2mm, Trachea midline, orotracheal intubation, neck supple CARDIO: Tachycardic rate and rhythm, NL S1S2, no JVD. PULM: Air entry markedly decreased in right base continued bilateral rhonchi and some mobile secretions persist. ABD/GI: Soft, non-distended. No guarding, bowel sounds are active. No tenderness. EXT/MSK: 2+ peripheral edema, warm, adequately perfused. SKIN: No rashes or lesions. Well perfused. NEURO: Sedated, orally intubated on mechanical ventilation. Withdraws 4 limbs to noxious stimulation. Opens eyes but does not track. Strong cough and gag reflex persist. No more tremors or seizures. Assessment and Plan - Problem List (1) Heroin overdose Code(s): T40.1X1A - Poisoning by heroin, accidental (unintentional), initial encounter Status: Acute (2) Polysubstance abuse Code(s): F19.10 - Other psychoactive substance abuse, uncomplicated Status: Chronic (3) Cocaine abuse Code(s): F14.10 - Cocaine abuse, uncomplicated Status: Acute (4) Elevated ETOH level Code(s): R78.0 - Finding of alcohol in blood Status: Acute (5) Marijuana abuse Code(s): F12.10 - Cannabis abuse, uncomplicated Status: Acute (6) TORREY (acute kidney injury) Code(s): N17.9 - Acute kidney failure, unspecified Status: Acute (7) Severe sepsis Code(s): A41.9 - Sepsis, unspecified organism; R65.20 - Severe sepsis without septic shock Status: Acute (8) Acute respiratory failure with hypoxia Code(s): J96.01 - Acute respiratory failure with hypoxia Status: Acute (9) Aspiration pneumonia Code(s): J69.0 - Pneumonitis due to inhalation of food and vomit Status: Acute (10) Vomiting Code(s): R11.10 - Vomiting, unspecified Status: Acute (11) Hyperglycemia Code(s): R73.9 - Hyperglycemia, unspecified Status: Acute (12) Protein-calorie malnutrition, moderate Code(s): E44.0 - Moderate protein-calorie malnutrition Status: Acute - Assessment and Plan Plan: NEURO: Heroin overdose Polysubstance abuse (marijuana, opiate, cocaine) Propofol and fentanyl for sedation-- PRN ativan and precedex gtt Thiamine/multivitamin supplementation CTH negative Tolerance to narcotic analgesia implies chronic narcotic use On methadone to wean fentanyl. Continue librium, reduced to 25 mg p.o. twice daily No further withdrawal symptomatology. RESP: Acute hypoxemic respiratory failure Acute aspiration pneumonia Intubated in ED 01/05 due to hypoxia. APRV mode mech ventilation, inhaled flolan titrated down to 30 ng/kg/min. DuoNeb every 6 hours. Albuterol every 2 hours as needed. CXR shows RLL opacity, likely aspiration pneumonia (see below) CT chest with dense bilateral basilar consolidations and small right pleural effusion Patient initially improved on APRV mode but is now deteriorating, may well require proning. Considerable sputum withdrawn from right lower lobe yesterday during bronchoscopy, culture results pending CV: Telemetry and BP monitoring in ICU GI: Continue tube feedings at goal Zofran prn. Problem resolved. FEN/RENAL: TORREY - suspect pre-renal secondary to overdose and sepsis, improved CPK is normal Urine output adequate Increase Lasix 40 mg IV twice daily to mobilize fluid ID: Severe Sepsis secondary to aspiration pneumonia Continue for aspiration. MRSA swab negative Blood cultures from 01/05 growing staph epidermidis in both bottles, repeat cultures sent 01/06 no growth at 1 day Consulted ID for antibiotic management in view of worsening respiratory status/ sepsis. On zosyn/ Vancomycin IV. Organism eludes us, sputum culture from 01/16 pending result HEME: No acute hematologic issues aside from leukocytosis.. Coags are normal. ENDO: Acute hyperglycemia Monitor bedside glucose every 6 hours and administer low-dose insulin sliding scale as indicated. Poor diabetic control has been an intermittent problem PROPH: -PPI -SCDs/ lovenox ACCESS: OVERALL: This patient remains critically ill requiring quite high levels of ventilator support for aspiration pneumonia and heroin drug overdose. His initial response to aggressive medical therapy has been poor, undoubtedly related to chronic debilitation and poor baseline nutritional status. His long- term prognosis is guarded, largely due to concerns about his nutritional and immune status. He initially failed bilevel ventilation but did more poorly on conventional. He requires constant manipulation of the assessment of his arterial blood gases, fluid removal, and antibiotic adjustment. He remains very unstable from a respiratory standpoint. Critical care time 46 minutes aside from procedures.
[2018-01-18] MEDS: Propofol 1000 mg/100 ml Inj 1,000 MG/100 ML BOTTLE IV.CONT PRN ×5 (01:59→21:31)
[2018-01-18] MEDS: fentaNYL 10 mcg/mL Premix Drip 2,500 MCG/250 ML BAG IV.SIG PRN ×2 (02:00→13:37)
[2018-01-18] MEDS: Methadone 10 MG Tablet PO SCH ×2 (03:36→15:52)
[2018-01-18] MEDS: chlordiazePOXIDE 25 MG Capsule PO SCH ×2 (03:37→15:36)
--- NOTE | 2018-01-18 03:38 | XR ---
EXAM DATE: 01/18/2018 3:14 AM EST AGE/SEX: 37 years / Male INDICATIONS: Hypoxemia. Evaluate for pneumonia. CLINICAL DATA: This is the patient's subsequent encounter. Patient reports that signs and symptoms h ave been present for 2 weeks and indicates a pain score of Nonresponsive. MEDICAL/SURGICAL HISTORY: . Smoker. IV drug user. None. COMPARISON: [facility] – [place], CHEST 1V SINGLE AP, 01/17/2018. . FINDINGS: A single AP view of the chest demonstrates right basilar consolidation which is unchanged. Left lung is clear. Heart is normal in size. Tip of the endotracheal tube 6 cm from the jhony. Nasogastric tub e tip courses off the inferior margin of the film. CONCLUSION: Unchanged right lower lobe consolidation. Electronically signed by: Srinivas Sharpe MD 01/18/2018 3:37 AM EST
[2018-01-18] MEDS: Oral Hygiene Kit OROPHARYNG SCH ×4 (04:21→15:36)
[2018-01-18] MEDS: Epoprostenol (30,000/mL) Neb 60 ML in Sodium Chlor 0.9% Inj 40 ML NEB SCH ×4 (04:21→11:39)
[2018-01-18 04:45] LABS: Baso # (Auto) 0.1 th/mm3 (0.0-0.2); Baso % (Auto) 0.8 % (0.0-2.0); Eos # (Auto) 0.3 th/mm3 (0.0-0.4); Eos % (Auto) 2.9 % (0.0-4.0); Lymph % (Auto) 8.8 % (9.0-44.0); Mean Corpuscular HGB Conc 34.5 % (32.0-36.0); Mean Corpuscular Hemoglobin 33.1 pg (27.0-34.0); Mean Corpuscular Volume 95.9 fL (80.0-100.0); Mono # (Auto) 2.6 th/mm3 (0.0-0.9); Mono % (Auto) 22.1 % (0.0-8.0); Neut # (Auto) 7.8 th/mm3 (1.8-7.7); Neut % (Auto) 65.4 % (16.0-70.0); Platelet Count 342 th/mm3 (150-450); Red Blood Count 3.34 mil/mm3 (4.50-5.90); Red Cell Distribution Width 13.5 % (11.6-17.2); White Blood Count 11.9 th/mm3 (4.0-11.0)
[2018-01-18] MEDS: Piperacil/Tazo 4.5 GM Premix 4.5 GM/100 ML BAG IV.SIG SCH ×4 (04:55→23:00)
[2018-01-18 05:06] LABS: Anion Gap 6 meq/L (5-15); Blood Urea Nitrogen 21 mg/dL (7-18); Calcium 8.8 mg/dL (8.5-10.1); Chloride 99 meq/L (98-107); Glomerular Filtration Rate Greater Than 89 mL/min (>89); Glucose,Random 102 mg/dL (74-106); Potassium 3.4 meq/L (3.5-5.1); Sodium 138 meq/L (136-145)
[2018-01-18] MEDS: Potassium Chlor 20 mEq Premix 20 MEQ/100 ML PIGGYBACK IV.SIG PRN (05:26)
[2018-01-18] MEDS: Insulin NovoLOG Aspart Correctional Sugar Inj SQ SCH ×4 (05:53→19:02)
[2018-01-18 06:12] LABS: ABG PCO2 53 mmHg (38-42); ABG PO2 68 mmHg (61-120)
[2018-01-18 07:35] LABS: Eosinophils 1 % (0-4); Lymphocytes 9 % (9-44); Monocytes 15 % (0-8); Myelocytes 1 % (0-0); Platelet Estimate Normal (Normal); Platelet Morphology Normal (Normal)
[2018-01-18] MEDS ORDERED: Cisatracurium Inj 20 MG/10 ML Vial IV.PUSH ONE (10:08)
[2018-01-18] MEDS: Famotidine PF Inj 20 MG/2 ML Vial IV.PUSH SCH ×2 (10:13→21:31)
[2018-01-18] MEDS: Vancomycin Inj 2,000 MG in Sodium Chlor 0.9% Inj 500 ML IV.SIG SCH (10:13)
--- NOTE | 2018-01-18 10:16 | P.PNCC ---
Subjective Subjective Remarks/Hospital Course: 37-year-old male who is brought to [facility] emergency department after friends contacted [facility] due to decreased mental status with suspected heroin overdose. He had used heroin earlier in the evening. [facility] reportedly found him laying in emesis with a thready pulse. They gave him sequential doses of Narcan to a total of 2.4 mg IV at which point he became more awake and alert. He then had multiple episodes of vomiting in route. NG tube was placed by the paramedics and they aspirated gastric contents and then removed s NG prior to arrival. His room air sats were reportedly 84% and he was placed on NR. Patient told Dr. Lovett that this was his first time using heroin and that he injected it. CXR demonstrated RLL opacity. He was started on Unasyn for aspiration pneumonia and given nebs. He eventually was intubated due to hypoxia with sats in high 80s despite nonrebreather. [employer] consulted for admission. 01/06: Remains sedated and intubated, requires PEEP 12 and FiO2 70%, will try to wean these today if tolerated. 01/07: Agitated overnight and this morning, 2 episodes where the patient bit down on ETT, desaturated, and became unstable. Not tolerating pressure support trials. 01/08: Remains sedated, orally intubated on mechanical ventilation. PEEP remains at +12. CT chest done today shows worsening consolidations. Pleural effusion. 01/09: Remains critically ill with severe bilateral lower lobe consolidated pneumonias. Requiring markedly elevated mean airway pressure still. Patient is nutritionally depleted and not responding well to our aggressive medical treatment. 01/10: Continued requirements for markedly elevated fractional inspiratory oxygen concentration. Continued dense consolidation in both lower lobes PEEP reduced to avoid overexpansion of upper lobes. 01/11: Converted to airway pressure release ventilation because of inability to oxygenate adequately. We will probably have to add Flolan. Lengthy discussion with family about the severity of his respiratory problems and pneumonia. 01/12: Some progress but remains with high A-aO2 gradient. ET tube above clavicles; repositioned. Copious foul secretions. High requirement requirements for analgesia and sedation due to alcohol history. Will continue methadone and start scheduled Librium in an attempt to lower the intravenous requirements. 01/13: Remains sedated, orally intubated on mechanical ventilation. 01/14: Remains sedated, orally intubated on mechanical ventilation. Remains on APRV mode. On inhaled Flolan. 01/15: Remains sedated, intubated on AP RV mode mechanical ventilation. Inhaled Flolan titrated down to 30 ng/kg/min. Placed on rotarest bed yesterday. Starting Lasix to mobilize fluid in view of positive fluid balance. 01/16: Dense consolidation right lower lobe causing severe shunting and hypoxemia. He will likely require pronating to drain the basilar lower lobes. Patient remains critically ill with an unrelenting bilateral pneumonia proving refractory to our best antibiotic and ventilatory interventions. 01/17: Persistent shunting through consolidated right lower lobe is producing profound hypoxemia. Presently requiring roto-rest bed and markedly elevated mean airway pressures on mechanical ventilation. Sputum obtained during alveolar lavage of the right lower lobe yesterday is still pending. Patient remains critically ill and generally edematous. 01/18: Not progressing on Roto-Rest bed. Remains on 65% FiO2, inhaled Flolan, AP RV mode mechanical ventilation. We will attempt to place on prone ventilation after neuromuscular blockade and switching to pressure control inverse ratio mode mechanical ventilation. Also placing Dobbhoff to see if he tolerates tube feeds better and will be placing central line Objective Vital Signs / I&O: Vital Signs 01/17/18 11:00 01/17/18 11:17 01/17/18 12:00 Temperature 100.2 F H Pulse Rate 89 90 Respiratory Rate 19 20 20 Blood Pressure Pulse Oximetry 95 96 96 01/17/18 13:00 01/17/18 14:00 01/17/18 15:00 Temperature Pulse Rate 89 88 87 Respiratory Rate 15 15 18 Blood Pressure Pulse Oximetry 96 95 96 01/17/18 15:24 01/17/18 16:00 01/17/18 17:00 Temperature 100.2 F H Pulse Rate 89 89 Respiratory Rate 21 20 18 Blood Pressure Pulse Oximetry 95 95 95 01/17/18 18:00 01/17/18 19:00 01/17/18 20:00 Temperature 100.1 F H Pulse Rate 92 H 94 H 95 H Respiratory Rate 22 19 Blood Pressure 138/75 131/72 Pulse Oximetry 93 L 93 L 93 L 01/17/18 20:27 01/17/18 21:00 01/17/18 22:00 Temperature Pulse Rate 93 H 95 H Respiratory Rate 20 Blood Pressure 132/72 136/81 Pulse Oximetry 96 94 L 94 L 01/17/18 23:00 01/18/18 00:00 01/18/18 00:05 Temperature Pulse Rate 95 H 94 H Respiratory Rate 21 Blood Pressure 133/75 Pulse Oximetry 93 L 93 L 94 L 01/18/18 01:00 01/18/18 02:00 01/18/18 03:00 Temperature Pulse Rate 92 H 90 88 Respiratory Rate Blood Pressure 130/69 Pulse Oximetry 94 L 94 L 94 L 01/18/18 03:53 01/18/18 04:00 01/18/18 05:00 Temperature 99.2 F Pulse Rate 87 85 Respiratory Rate 21 21 Blood Pressure 127/72 Pulse Oximetry 92 L 93 L 92 L 01/18/18 06:00 Temperature Pulse Rate 83 Respiratory Rate Blood Pressure 133/83 Pulse Oximetry 91 L Intake & Output 01/17/18 01/18/18 01/18/18 18:59 06:59 18:59 Intake Total 2135 / 2135 1707 / 1707 Output Total 1850 / 1850 1000 / 1000 Balance 285 / 285 707 / 707 Weight 98.8 kg Intake: IV 1370 / 1370 1370 / 1370 Diprivan 1000 mg/100 ml Inj 1, 300 / 300 300 / 300 000 mg In 100 ml @ 5 MCG/KG/MIN 2.585 mls/hr IV.CONT TITRATE PRN Rx#:[id number] Zosyn 4.5 GM Premix 4.5 gm In 200 / 200 200 / 200 100 ml @ 200 mls/hr IV.SIG Q6H VU Rx#:[id number] Vancomycin Inj 2,000 MG In NS 520 / 520 520 / 520 Inj 500 ML @ 260 mls/hr IV.SIG Q12H VU Rx#:[id number] fentaNYL 10 mcg/mL Premix Drip 250 / 250 250 / 250 2,500 mcg In 250 ml @ 50 MCG/HR 5 mls/hr IV.SIG TITRATE PRN Rx #:[id number] Flolan (30,000 ng/mL) Neb 60 ML 100 / 100 100 / 100 In NS Inj 40 ML @ 5 mls/hr NEB Q8H VU Rx#:[id number] Oral 0 / 0 Tube Feeding 345 / 345 237 / 237 Water Bolus Amount 420 / 420 100 / 100 Output: Urine 1850 / 1850 Stool 0 / 0 Urine Amount (Catheter) 1000 / 1000 Indwelling Urethral Catheter 1000 / 1000 Gastric Drainage 0 / 0 Orogastric Tube 0 / 0 Other: Date of Last Bowel Movement 01/14/18 01/14/18 # Bowel Movements 0 0 Result Diagrams: 01/18/18 04:35 01/18/18 04:35 Objective Remarks: GEN: Intubated and sedated, ill appearing, encephalopathic. HEENT: Reactive pupils 2mm, Trachea midline, orotracheal intubation, neck supple CARDIO: Tachycardic rate and rhythm, NL S1S2, no JVD. PULM: Air entry markedly decreased in right base continued bilateral rhonchi and some mobile secretions persist. ABD/GI: Soft, non-distended. No guarding, bowel sounds are active. No tenderness. EXT/MSK: 2+ peripheral edema, warm, adequately perfused. SKIN: No rashes or lesions. Well perfused. NEURO: Sedated, orally intubated on mechanical ventilation. Withdraws 4 limbs to noxious stimulation. Opens eyes but does not track. Strong cough and gag reflex persist. No more tremors or seizures. Assessment and Plan - Problem List (1) Heroin overdose Code(s): T40.1X1A - Poisoning by heroin, accidental (unintentional), initial encounter Status: Acute (2) Polysubstance abuse Code(s): F19.10 - Other psychoactive substance abuse, uncomplicated Status: Chronic (3) Cocaine abuse Code(s): F14.10 - Cocaine abuse, uncomplicated Status: Acute (4) Elevated ETOH level Code(s): R78.0 - Finding of alcohol in blood Status: Acute (5) Marijuana abuse Code(s): F12.10 - Cannabis abuse, uncomplicated Status: Acute (6) TORREY (acute kidney injury) Code(s): N17.9 - Acute kidney failure, unspecified Status: Acute (7) Severe sepsis Code(s): A41.9 - Sepsis, unspecified organism; R65.20 - Severe sepsis without septic shock Status: Acute (8) Acute respiratory failure with hypoxia Code(s): J96.01 - Acute respiratory failure with hypoxia Status: Acute (9) Aspiration pneumonia Code(s): J69.0 - Pneumonitis due to inhalation of food and vomit Status: Acute (10) Vomiting Code(s): R11.10 - Vomiting, unspecified Status: Acute (11) Hyperglycemia Code(s): R73.9 - Hyperglycemia, unspecified Status: Acute (12) Protein-calorie malnutrition, moderate Code(s): E44.0 - Moderate protein-calorie malnutrition Status: Acute - Assessment and Plan Plan: NEURO: Heroin overdose Polysubstance abuse (marijuana, opiate, cocaine) Propofol and fentanyl for sedation-- PRN ativan and precedex gtt Thiamine/multivitamin supplementation CTH negative Tolerance to narcotic analgesia implies chronic narcotic use On methadone to wean fentanyl. Continue librium, reduced to 25 mg p.o. twice daily No further withdrawal symptomatology. RESP: Acute hypoxemic respiratory failure Acute aspiration pneumonia Intubated in ED 01/05 due to hypoxia. APRV mode mech ventilation, inhaled flolan titrated down to 30 ng/kg/min. Plan to switching to pressure control mode mechanical ventilation inverse ratio with neuromuscular blockade and then prone ventilation on 01/18 DuoNeb every 6 hours. Albuterol every 2 hours as needed. CXR shows RLL opacity, likely aspiration pneumonia (see below) CT chest with dense bilateral basilar consolidations and small right pleural effusion Patient initially improved on APRV mode but is now deteriorating, may well require proning. Considerable sputum withdrawn from right lower lobe yesterday during bronchoscopy, culture results pending CV: Telemetry and BP monitoring in ICU GI: Continue tube feedings at goal Zofran prn. Problem resolved. FEN/RENAL: TORREY - suspect pre-renal secondary to overdose and sepsis, improved CPK is normal Urine output adequate Increase Lasix 40 mg IV twice daily to mobilize fluid ID: Severe Sepsis secondary to aspiration pneumonia Continue for aspiration. MRSA swab negative Blood cultures from 01/05 growing staph epidermidis in both bottles, repeat cultures sent 01/06 no growth at 1 day Consulted ID for antibiotic management in view of worsening respiratory status/ sepsis. On zosyn/ Vancomycin IV. Organism eludes us, sputum culture from 01/16 pending result HEME: No acute hematologic issues aside from leukocytosis.. Coags are normal. ENDO: Acute hyperglycemia Monitor bedside glucose every 6 hours and administer low-dose insulin sliding scale as indicated. Poor diabetic control has been an intermittent problem PROPH: -PPI -SCDs/ lovenox ACCESS: OVERALL: This patient remains critically ill requiring quite high levels of ventilator support for aspiration pneumonia and heroin drug overdose. His initial response to aggressive medical therapy has been poor, undoubtedly related to chronic debilitation and poor baseline nutritional status. His long- term prognosis is guarded, largely due to concerns about his nutritional and immune status. He initially failed bilevel ventilation but did more poorly on conventional. He requires constant manipulation of the assessment of his arterial blood gases, fluid removal, and antibiotic adjustment. He remains very unstable from a respiratory standpoint. Critical care time 45 minutes aside from procedures.
[2018-01-18] MEDS: Beneprotein Powder Packet G-TUBE SCH ×3 (10:19→17:31)
[2018-01-18] MEDS: Senna/Docusate Sodium 8.6/50 MG Tablet PO SCH ×2 (10:19→21:31)
[2018-01-18] MEDS: Enoxaparin Inj 40 MG/0.4 ML Syringe SQ SCH (10:19)
[2018-01-18] MEDS: Chlorhexidine 0.12% Oral Kit 15 ML UDC OROPHARYNG SCH ×2 (10:19→22:05)
--- NOTE | 2018-01-18 12:14 | XR ---
EXAM DATE: 01/18/2018 12:05 PM EST AGE/SEX: 37 years / Male INDICATIONS: Central line placement. CLINICAL DATA: This is the patient's subsequent encounter. Patient reports that signs and symptoms h ave been present for 1 week and indicates a pain score of Nonresponsive. MEDICAL/SURGICAL HISTORY: . Smoker. IV drug user. None. COMPARISON: [facility], CHEST 1V SINGLE AP, 01/18/2018. . FINDINGS: Portable AP view of the chest demonstrates a normal-sized cardiac silhouette. ETT, nasogastric tube, and feeding tube are present. Right IJ line distal tip is in the SVC. No pneumothorax is identified. There is stable elevation of the right hemidiaphragm with right basilar airspace opacity. CONCLUSION: 1. Right IJ central line distal tip overlies the SVC. No pneumothorax is visualized. 2. Stable opacity at the right lung base. Electronically signed by: Yo Patricia MD 01/18/2018 12:13 PM EST
--- NOTE | 2018-01-18 12:15 | XR ---
EXAM DATE: 01/18/2018 12:07 PM EST AGE/SEX: 37 years / Male INDICATIONS: Dobbhoff placement. CLINICAL DATA: This is the patient's subsequent encounter. Patient reports that signs and symptoms h ave been present for 1 week and indicates a pain score of Nonresponsive. MEDICAL/SURGICAL HISTORY: . Smoker. IV drug user. None. COMPARISON: [facility] – [place], ABDOMEN 1V KUB, 01/12/2018. . FINDINGS: Single portable frontal view of the abdomen demonstrates nasogastric tube distal tip in the stomach a nd the feeding tube distal tip in the antropyloric region. There is a nonobstructive bowel gas patter n. Right hemidiaphragm remains elevated. CONCLUSION: Feeding tube distal tip is in the distal stomach in the antropyloric region. Electronically signed by: Yo Patricia MD 01/18/2018 12:14 PM EST
--- NOTE | 2018-01-18 13:11 | P.PCN ---
Date of procedure: 01/18/18 Pre-op diagnosis: Acute resp failure, ARDS Post-op diagnosis: same Procedure: PROCEDURE PERFORMED Right internal jugular vein central venous catheter placement INFORMED CONSENT Informed consent obtained from family and documented on chart. ANESTHESIA 1% Lidocaine for local infiltration anesthesia. PROCEDURE After sterile prepping and draping using 1% lidocaine for local infiltration anesthesia, the right external jugular vein was cannulated using an introducer angiocath with dark non-pulsatile blood return. Angiocath was advanced via the rt external jugular vein without any resistance and the needle was then removed. Blood return was confirmed through the Angiocath following which a guidewire was passed through the Angiocath into the right external jugular vein without any resistance and the Angiocath was then removed. After making a skin rafi and dilation of tract, a 20 cm antimicrobial coated triple lumen catheter was passed over the guidewire by modified Seldinger technique into the right internal jugular vein up to the 19 cm joe and the guidewire was then removed. Good blood return obtained through all three ports which were then flushed and capped. After suturing the catheter in place, a Bio-occlusive dressing with Biopatch was applied to the site. The patient tolerated the procedure well with no immediate complications noted. A postprocedure chest x-ray was ordered and reviewed with good placement of Right IJ central venous catheter with tip overlying SVC. No pneumothorax on post- procedure film. Central line was sutured in place due to high risk for dislodgment with prone ventilation as well as excessive moisture/sweating in the neck region making it difficult to place StatLock.
--- NOTE | 2018-01-18 13:27 | P.PNID ---
Subjective Remarks: Patient nonresponsive on the ventilator. Sedated. On roto bed. Continues to have low-grade fever. Blood culture from 01/06 as no growth. Sputum culture has no growth. 37-year-old white male who was brought in to the emergency department when he was found down by a friend. The patient was noted to have overdosed on drugs. He was noted to have used IV heroin. In the emergency department, his temperature was normal. Chest x-ray was performed and showed an elevation of the right hemidiaphragm and right lower lobe consolidation versus atelectasis and small to moderate-sized right pleural effusion. The white blood cell count was elevated at 14.3. Blood cultures obtained on admission have Staph coagulase negative. Past Medical History: PAST MEDICAL HISTORY: Intravenous drug abuse. Allergies/Adverse Reactions: Allergies No Allergy Information Available Allergy (Unverified 01/05/18 03:22) UTO Objective Vital Signs 01/17/18 14:00 01/17/18 15:00 01/17/18 15:24 Temperature Pulse Rate 88 87 Respiratory Rate 15 18 21 Blood Pressure Pulse Oximetry 95 96 95 01/17/18 16:00 01/17/18 17:00 01/17/18 18:00 Temperature 100.2 F H Pulse Rate 89 89 92 H Respiratory Rate 20 18 22 Blood Pressure Pulse Oximetry 95 95 93 L 01/17/18 19:00 01/17/18 20:00 01/17/18 20:27 Temperature 100.1 F H Pulse Rate 94 H 95 H Respiratory Rate 19 20 Blood Pressure 138/75 131/72 Pulse Oximetry 93 L 93 L 96 01/17/18 21:00 01/17/18 22:00 01/17/18 23:00 Temperature Pulse Rate 93 H 95 H 95 H Respiratory Rate Blood Pressure 132/72 136/81 Pulse Oximetry 94 L 94 L 93 L 01/18/18 00:00 01/18/18 00:05 01/18/18 01:00 Temperature Pulse Rate 94 H 92 H Respiratory Rate 21 Blood Pressure 133/75 Pulse Oximetry 93 L 94 L 94 L 01/18/18 02:00 01/18/18 03:00 01/18/18 03:53 Temperature Pulse Rate 90 88 Respiratory Rate 21 Blood Pressure 130/69 Pulse Oximetry 94 L 94 L 92 L 01/18/18 04:00 01/18/18 05:00 01/18/18 06:00 Temperature 99.2 F Pulse Rate 87 85 83 Respiratory Rate 21 Blood Pressure 127/72 133/83 Pulse Oximetry 93 L 92 L 91 L 01/18/18 10:00 Temperature Pulse Rate Respiratory Rate 11 L Blood Pressure Pulse Oximetry 93 L Intake & Output 01/17/18 01/18/18 01/18/18 18:59 06:59 18:59 Intake Total 2135 / 2135 1707 / 1707 100 / 100 Output Total 1850 / 1850 1000 / 1000 Balance 285 / 285 707 / 707 100 / 100 Weight 98.8 kg Intake: IV 1370 / 1370 1370 / 1370 100 / 100 Diprivan 1000 mg/100 ml Inj 1, 300 / 300 300 / 300 000 mg In 100 ml @ 5 MCG/KG/MIN 2.585 mls/hr IV.CONT TITRATE PRN Rx#:[id number] Zosyn 4.5 GM Premix 4.5 gm In 200 / 200 200 / 200 100 ml @ 200 mls/hr IV.SIG Q6H VU Rx#:[id number] Vancomycin Inj 2,000 MG In NS 520 / 520 520 / 520 Inj 500 ML @ 260 mls/hr IV.SIG Q12H VU Rx#:[id number] fentaNYL 10 mcg/mL Premix Drip 250 / 250 250 / 250 2,500 mcg In 250 ml @ 50 MCG/HR 5 mls/hr IV.SIG TITRATE PRN Rx #:[id number] Flolan (30,000 ng/mL) Neb 60 ML 100 / 100 100 / 100 100 / 100 In NS Inj 40 ML @ 5 mls/hr NEB Q8H VU Rx#:[id number] Oral 0 / 0 Tube Feeding 345 / 345 237 / 237 Water Bolus Amount 420 / 420 100 / 100 Output: Urine 1850 / 1850 Stool 0 / 0 Urine Amount (Catheter) 1000 / 1000 Indwelling Urethral Catheter 1000 / 1000 Gastric Drainage 0 / 0 Orogastric Tube 0 / 0 Other: Date of Last Bowel Movement 01/14/18 01/14/18 # Bowel Movements 0 0 01/16/18 16:40 Sputum - Endotracheal Gram Stain - Final 01/16/18 16:40 Sputum - Endotracheal Sputum Culture - Final Rare growth normal respiratory alistair 01/14/18 15:15 Sputum - Endotracheal Gram Stain - Final 01/14/18 15:15 Sputum - Endotracheal Sputum Culture - Final Rare growth normal respiratory alistair at 24 hours Lab - Hematology Results 01/17/18 01/18/18 05:25 04:35 WBC 11.8 H 11.9 H RBC 3.59 L 3.34 L Hgb 11.6 L 11.0 L Hct 34.6 L 32.0 L MCV 96.3 95.9 MCH 32.3 33.1 MCHC 33.5 34.5 RDW 13.3 13.5 Plt Count 353 342 MPV 8.9 9.0 Prelim Diff (Auto) Slide review pending Slide review pending Neut % (Auto) 69.1 65.4 Lymph % (Auto) 9.7 8.8 L Surry % (Auto) 18.5 H 22.1 H Eos % (Auto) 2.3 2.9 Baso % (Auto) 0.4 0.8 Neut # (Auto) 8.1 H 7.8 H Lymph # (Auto) 1.1 1.0 Surry # (Auto) 2.2 H 2.6 H Eos # (Auto) 0.3 0.3 Baso # (Auto) 0.1 0.1 WBC Differential . Manual diff final Diff Scan Auto diff confirmed Seg Neuts % (Manual) 68 Band Neuts % (Manual) 5 Lymphocytes % (Manual) 9 Monocytes % (Manual) 15 H Eosinophils % (Manual) 1 Basophils % (Manual) 1 Myelocytes % (Man) 1 H Abs Neuts (Manual) 8.8 H Differential Comment . . Platelet Estimate Normal Platelet Morphology Normal Lab - Chemistry Results 01/16/18 01/17/18 01/17/18 18:43 00:04 05:25 Sodium 137 Potassium 3.6 Chloride 101 Carbon Dioxide 30.4 Anion Gap 6 BUN 19 H Creatinine 0.71 Estimated GFR Greater than 89 POC Glucose 95 102 Random Glucose 105 Calcium 9.0 Total Bilirubin 1.5 H AST 37 ALT 30 Alkaline Phosphatase 145 H Total Protein 7.0 Albumin 2.2 L 01/17/18 01/17/18 01/17/18 05:28 11:33 17:40 Sodium Potassium Chloride Carbon Dioxide Anion Gap BUN Creatinine Estimated GFR POC Glucose 106 92 101 Random Glucose Calcium Total Bilirubin AST ALT Alkaline Phosphatase Total Protein Albumin 01/17/18 01/18/18 01/18/18 23:55 04:35 11:43 Sodium 138 Potassium 3.4 L Chloride 99 Carbon Dioxide 33.0 H Anion Gap 6 BUN 21 H Creatinine 0.82 Estimated GFR Greater than 89 POC Glucose 106 108 Random Glucose 102 Calcium 8.8 Total Bilirubin AST ALT Alkaline Phosphatase Total Protein Albumin Imaging: ITS Impressions Head CT 01/05/18 05:01 CONCLUSION: 1. No acute intracranial findings. 2. Air-fluid levels in the right maxillary and sphenoid sinuses suggesting possible acute sinusitis versus air-fluid levels related to intubation.. . Chest CT 01/08/18 00:00 CONCLUSION: 1. Increasing airspace disease especially in both upper lobes. 2. Persistent dense consolidation in the lower lobes without significant improvement. 3. Increasing right pleural effusion. Chest X-Ray 01/18/18 11:26 CONCLUSION: 1. Right IJ central line distal tip overlies the SVC. No pneumothorax is visualized. 2. Stable opacity at the right lung base. Abdomen X-Ray 01/18/18 11:51 CONCLUSION: Feeding tube distal tip is in the distal stomach in the antropyloric region. Physical Exam: PHYSICAL EXAMINATION: GENERAL: On the ventilator. Unresponsive. HEENT: The sclerae are nonicteric. Mild scleral edema. No icterus. Oropharynx intubated. LUNGS: Decreased breath sounds. HEART: Regular S1, S2, without murmurs, rubs or gallops. ABDOMEN: Bowel sounds present. Soft. EXTREMITIES: No clubbing or cyanosis or edema. No embolic lesions visible. SKIN: No diffuse rash. NEUROLOGIC: Unable to assess. PSYCHIATRIC: Unable to assess. Assessment and Plan - Plan IMPRESSION: 1. Pneumonia. 2. Bacteremia due to Staphylococcus coag negative. Repeat blood cultures have no growth. This possibly could be contamination. 3. Acute respiratory failure. 4. Intravenous drug use. 5. Probable aspiration. RECOMMENDATIONS: 1. Continue piperacillin/tazobactam. 2. Stop vancomycin. 3. Monitor temperature. 4. Follow sputum culture. 5. Monitor clinical response.
[2018-01-18] MEDS: Cisatracurium Inj 100 MG in Sodium Chlor 0.9% Inj 240 ML IV.CONT PRN ×2 (13:30→19:42)
[2018-01-18] MEDS: Midazolam 100 MG/100 ML Inj 100 MG/100 ML BAG IV.CONT PRN (13:34)
[2018-01-18 14:04] LABS: ABG Base Excess 9.5 mmol/L (-2-2); ABG PCO2 57 mmHg (38-42); ABG PO2 70 mmHg (61-120)
[2018-01-18 16:31] LABS: ABG Base Excess 7.4 mmol/L (-2-2); ABG PCO2 47 mmHg (38-42); ABG PO2 66 mmHg (61-120)
[2018-01-18] MEDS: Dextrose 50% in Water 50 ML Vial IV.PUSH PRN (19:06)
[2018-01-19] MEDS: Propofol 1000 mg/100 ml Inj 1,000 MG/100 ML BOTTLE IV.CONT PRN ×5 (01:48→21:28)
[2018-01-19] MEDS: Oral Hygiene Kit OROPHARYNG SCH ×4 (01:48→15:44)
[2018-01-19] MEDS: Cisatracurium Inj 100 MG in Sodium Chlor 0.9% Inj 240 ML IV.CONT PRN ×6 (01:50→20:53)
[2018-01-19] MEDS: chlordiazePOXIDE 25 MG Capsule PO SCH ×2 (03:29→15:43)
[2018-01-19] MEDS: Methadone 10 MG Tablet PO SCH ×2 (03:29→15:43)
[2018-01-19] MEDS: Insulin NovoLOG Aspart Correctional Sugar Inj SQ SCH ×4 (03:33→17:13)
[2018-01-19 05:09] LABS: ABG Base Excess 8.4 mmol/L (-2-2); ABG PCO2 66 mmHg (38-42); ABG PO2 70 mmHg (61-120)
[2018-01-19] MEDS: Midazolam 100 MG/100 ML Inj 100 MG/100 ML BAG IV.CONT PRN ×2 (05:10→20:15)
[2018-01-19] MEDS: Piperacil/Tazo 4.5 GM Premix 4.5 GM/100 ML BAG IV.SIG SCH ×4 (05:12→22:47)
[2018-01-19 05:36] LABS: Hematocrit 32.7 % (39.0-51.0); Hemoglobin 11.3 gm/dL (13.0-17.0); Mean Corpuscular HGB Conc 34.6 % (32.0-36.0); Mean Corpuscular Hemoglobin 33.1 pg (27.0-34.0); Mean Corpuscular Volume 95.8 fL (80.0-100.0); Mean Platelet Volume 9.4 fL (7.0-11.0); Platelet Count 409 th/mm3 (150-450); Red Blood Count 3.42 mil/mm3 (4.50-5.90); Red Cell Distribution Width 13.1 % (11.6-17.2)
[2018-01-19] MEDS: Epoprostenol (30,000/mL) Neb 60 ML in Sodium Chlor 0.9% Inj 40 ML NEB SCH ×3 (07:14→13:51)
[2018-01-19 07:20] LABS: Anion Gap 6 meq/L (5-15); Blood Urea Nitrogen 23 mg/dL (7-18); Calcium 8.5 mg/dL (8.5-10.1); Carbon Dioxide 35.8 meq/L (21.0-32.0); Chloride 98 meq/L (98-107); Glomerular Filtration Rate Greater Than 89 mL/min (>89); Glucose,Random 96 mg/dL (74-106); Potassium 3.5 meq/L (3.5-5.1); Sodium 140 meq/L (136-145)
[2018-01-19] MEDS: fentaNYL 10 mcg/mL Premix Drip 2,500 MCG/250 ML BAG IV.SIG PRN ×2 (07:30→17:59)
[2018-01-19 07:40] LABS: Eosinophils 3 % (0-4); Lymphocytes 9 % (9-44); Monocytes 17 % (0-8); Myelocytes 1 % (0-0)
[2018-01-19 07:41] LABS: Platelet Estimate Normal (Normal)
--- NOTE | 2018-01-19 08:07 | XR ---
EXAM DATE: 01/19/2018 8:01 AM EST AGE/SEX: 37 years / Male INDICATIONS: Pulmonary Edema. CLINICAL DATA: This is the patient's subsequent encounter. Patient reports that signs and symptoms h ave been present for 2 weeks and indicates a pain score of Nonresponsive. MEDICAL/SURGICAL HISTORY: . Smoker. IV drug user. None. COMPARISON: [facility] – [place], CHEST 1V SINGLE AP, 01/18/2018. . FINDINGS: Portable AP view of the chest demonstrates a normal-sized cardiac silhouette. Right IJ line, nasogast glynn tube, and ETT remain present. EKG lines overlie the patient. There is stable elevation the right hemidiaphragm. No effusion, consolidation, or pneumothorax is identified. There are a few linear opac ities in the left upper to midlung zone peripherally and in the right midlung zone. Bones demonstrate no acute finding. CONCLUSION: Mild interstitial opacity in the mid aspect of the lungs bilaterally. Although nonspecific this could represent a mild degree of interstitial pulmonary edema. Otherwise, there is improved aeration at th e right lung base. Electronically signed by: Yo Patricia MD 01/19/2018 8:06 AM EST
[2018-01-19] MEDS: Chlorhexidine 0.12% Oral Kit 15 ML UDC OROPHARYNG SCH ×2 (08:28→20:54)
[2018-01-19] MEDS: Beneprotein Powder Packet G-TUBE SCH ×3 (08:37→17:04)
[2018-01-19] MEDS: Famotidine PF Inj 20 MG/2 ML Vial IV.PUSH SCH ×2 (08:37→21:26)
[2018-01-19] MEDS: Senna/Docusate Sodium 8.6/50 MG Tablet PO SCH ×2 (08:37→21:27)
[2018-01-19] MEDS: Enoxaparin Inj 40 MG/0.4 ML Syringe SQ SCH (08:37)
--- NOTE | 2018-01-19 10:05 | P.PNCC ---
Subjective Subjective Remarks/Hospital Course: 37-year-old male who is brought to [facility] emergency department after friends contacted [facility] due to decreased mental status with suspected heroin overdose. He had used heroin earlier in the evening. [facility] reportedly found him laying in emesis with a thready pulse. They gave him sequential doses of Narcan to a total of 2.4 mg IV at which point he became more awake and alert. He then had multiple episodes of vomiting in route. NG tube was placed by the paramedics and they aspirated gastric contents and then removed s NG prior to arrival. His room air sats were reportedly 84% and he was placed on NR. Patient told Dr. Lovett that this was his first time using heroin and that he injected it. CXR demonstrated RLL opacity. He was started on Unasyn for aspiration pneumonia and given nebs. He eventually was intubated due to hypoxia with sats in high 80s despite nonrebreather. Service Line Coordinator consulted for admission. 01/06: Remains sedated and intubated, requires PEEP 12 and FiO2 70%, will try to wean these today if tolerated. 01/07: Agitated overnight and this morning, 2 episodes where the patient bit down on ETT, desaturated, and became unstable. Not tolerating pressure support trials. 01/08: Remains sedated, orally intubated on mechanical ventilation. PEEP remains at +12. CT chest done today shows worsening consolidations. Pleural effusion. 01/09: Remains critically ill with severe bilateral lower lobe consolidated pneumonias. Requiring markedly elevated mean airway pressure still. Patient is nutritionally depleted and not responding well to our aggressive medical treatment. 01/10: Continued requirements for markedly elevated fractional inspiratory oxygen concentration. Continued dense consolidation in both lower lobes PEEP reduced to avoid overexpansion of upper lobes. 01/11: Converted to airway pressure release ventilation because of inability to oxygenate adequately. We will probably have to add Flolan. Lengthy discussion with family about the severity of his respiratory problems and pneumonia. 01/12: Some progress but remains with high A-aO2 gradient. ET tube above clavicles; repositioned. Copious foul secretions. High requirement requirements for analgesia and sedation due to alcohol history. Will continue methadone and start scheduled Librium in an attempt to lower the intravenous requirements. 01/13: Remains sedated, orally intubated on mechanical ventilation. 01/14: Remains sedated, orally intubated on mechanical ventilation. Remains on APRV mode. On inhaled Flolan. 01/15: Remains sedated, intubated on AP RV mode mechanical ventilation. Inhaled Flolan titrated down to 30 ng/kg/min. Placed on rotarest bed yesterday. Starting Lasix to mobilize fluid in view of positive fluid balance. 01/16: Dense consolidation right lower lobe causing severe shunting and hypoxemia. He will likely require pronating to drain the basilar lower lobes. Patient remains critically ill with an unrelenting bilateral pneumonia proving refractory to our best antibiotic and ventilatory interventions. 01/17: Persistent shunting through consolidated right lower lobe is producing profound hypoxemia. Presently requiring roto-rest bed and markedly elevated mean airway pressures on mechanical ventilation. Sputum obtained during alveolar lavage of the right lower lobe yesterday is still pending. Patient remains critically ill and generally edematous. 01/18: Not progressing on Roto-Rest bed. Remains on 65% FiO2, inhaled Flolan, AP RV mode mechanical ventilation. We will attempt to place on prone ventilation after neuromuscular blockade and switching to pressure control inverse ratio mode mechanical ventilation. Also placing Dobbhoff to see if he tolerates tube feeds better and will be placing central line 01/19: Placed on prone ventilation on 01/19 after switching to PC/AC PIP+18, PEEP+ 15, Rate 18, I :E 3.5:1, FiO2 65%. FiO2 requirement down to 40% with proning. Remains on inhaled flolan. On neuromuscular blockade. Objective Vital Signs / I&O: Vital Signs 01/18/18 10:00 01/18/18 11:00 01/18/18 12:00 Temperature Pulse Rate 83 81 79 Respiratory Rate 11 L Blood Pressure 122/69 121/73 Pulse Oximetry 92 L 93 L 92 L 01/18/18 13:00 01/18/18 13:29 01/18/18 14:00 Temperature 99.1 F Pulse Rate 78 78 Respiratory Rate 18 Blood Pressure 121/72 Pulse Oximetry 94 L 94 L 93 L 01/18/18 15:00 01/18/18 16:00 01/18/18 16:15 Temperature 99.1 F 99.3 F Pulse Rate 78 Respiratory Rate 18 Blood Pressure 112/58 L Pulse Oximetry 94 L 93 L 91 L 01/18/18 17:00 01/18/18 18:00 01/18/18 19:00 Temperature 99.7 F H 100.4 F H 100.9 F H Pulse Rate 78 80 84 Respiratory Rate 18 Blood Pressure 139/91 H Pulse Oximetry 93 L 98 96 01/18/18 19:57 01/18/18 20:00 01/18/18 21:00 Temperature 100.9 F H 100.4 F H Pulse Rate 82 83 Respiratory Rate 18 18 18 Blood Pressure 122/67 Pulse Oximetry 95 100 95 01/18/18 22:00 01/18/18 23:00 01/19/18 00:00 Temperature 100.6 F H 99.7 F H 99.7 F H Pulse Rate 88 89 84 Respiratory Rate 18 18 18 Blood Pressure 122/74 126/78 Pulse Oximetry 93 L 93 L 93 L 01/19/18 01:00 01/19/18 01:15 01/19/18 02:00 Temperature 99.5 F 99.7 F H Pulse Rate 86 89 Respiratory Rate 18 18 18 Blood Pressure 122/74 Pulse Oximetry 92 L 92 L 89 L 01/19/18 03:00 01/19/18 03:51 01/19/18 04:00 Temperature 99.9 F H 100.2 F H Pulse Rate 95 H 92 H Respiratory Rate 18 18 18 Blood Pressure 105/54 L Pulse Oximetry 94 L 93 L 93 L 01/19/18 05:00 01/19/18 06:00 01/19/18 07:00 Temperature 100.6 F H 100.9 F H 100.8 F H Pulse Rate 93 H 93 H 94 H Respiratory Rate 18 18 Blood Pressure 142/89 H Pulse Oximetry 92 L 95 92 L 01/19/18 08:00 01/19/18 08:55 01/19/18 09:00 Temperature 99.4 F Pulse Rate 93 H 84 Respiratory Rate 18 Blood Pressure 118/65 Pulse Oximetry 91 L 97 93 L Intake & Output 01/18/18 01/19/18 01/19/18 18:59 06:59 18:59 Intake Total 870 / 870 2519 / 2519 100 / 100 Output Total 2875 / 2875 1350 / 1350 Balance -2004 / 1169 / 1169 100 / 100 Intake: IV 750 / 750 2220 / 2220 100 / 100 Nimbex Inj 100 MG In NS Inj 240 750 / 750 ML @ 1 MCG/KG/MIN 14.82 mls/hr IV.CONT TITRATE PRN Rx#: [id number] Versed Inj 100 mg In 100 ml @ 2 100 / 100 MG/HR 2 mls/hr IV.CONT TITRATE PRN Rx#:[id number] Diprivan 1000 mg/100 ml Inj 1, 200 / 200 300 / 300 000 mg In 100 ml @ 5 MCG/KG/MIN 2.585 mls/hr IV.CONT TITRATE PRN Rx#:[id number] Zosyn 4.5 GM Premix 4.5 gm In 100 / 100 200 / 200 100 / 100 100 ml @ 200 mls/hr IV.SIG Q6H [facility] Rx#:[id number] KCl 20 mEq Premix Inj 20 meq In 100 / 100 100 ml @ 50 mls/hr IV.SIG Q2H PRN Rx#:[id number] Vancomycin Inj 2,000 MG In NS 520 / 520 Inj 500 ML @ 260 mls/hr IV.SIG Q12H [facility] Rx#:[id number] fentaNYL 10 mcg/mL Premix Drip 250 / 250 250 / 250 2,500 mcg In 250 ml @ 50 MCG/HR 5 mls/hr IV.SIG TITRATE PRN Rx #:[id number] Flolan (30,000 ng/mL) Neb 60 ML 100 / 100 100 / 100 In NS Inj 40 ML @ 5 mls/hr NEB Q8H [facility] Rx#:[id number] Tube Feeding 60 / 60 239 / 239 Tube Irrigant 60 / 60 Water Bolus Amount 60 / 60 Output: Urine 1050 / 1050 Urine Amount (Catheter) 2575 / 2575 Indwelling Urethral Catheter 2575 / 2575 Gastric Drainage 300 / 300 300 / 300 Left Nare 250 / 250 Orogastric Tube 50 / 50 300 / 300 Other: Date of Last Bowel Movement 02/13/18 01/14/18 01/14/18 Result Diagrams: 01/19/18 05:20 01/19/18 06:30 Other Results: Laboratory Results - last 24 hr 01/18/18 01/18/18 01/18/18 11:43 13:55 16:20 WBC RBC Hgb Hct MCV MCH MCHC RDW Plt Count MPV Prelim Diff (Auto) WBC Differential Seg Neuts % (Manual) Band Neuts % (Manual) Lymphocytes % (Manual) Monocytes % (Manual) Eosinophils % (Manual) Basophils % (Manual) Myelocytes % (Man) Abs Neuts (Manual) Differential Comment Platelet Estimate Platelet Morphology Puncture Site Art line Art line Patient Temperature 98.6 98.6 O2 Saturation 91 91 ABG pH 7.40 7.44 H ABG pCO2 57 H* 47 H ABG pO2 70 66 ABG HCO3 35 H 32 H ABG O2 Content 14.3 16.9 ABG Base Excess 9.5 H 7.4 H ABG Methemoglobin 1.3 1.3 Hemoglobin 11.1 L 13.2 Carboxyhemoglobin 1.2 1.2 O2 Delivery Device Ventilator Ventilator Vent Setting Inspired O2 65 40 Critical Value Yes No Sodium Potassium Chloride Carbon Dioxide Anion Gap BUN Creatinine Estimated GFR POC Glucose 108 Random Glucose Calcium 01/18/18 01/19/18 01/19/18 23:03 04:59 05:20 WBC 11.0 RBC 3.42 L Hgb 11.3 L Hct 32.7 L MCV 95.8 MCH 33.1 MCHC 34.6 RDW 13.1 Plt Count 409 MPV 9.4 Prelim Diff (Auto) Manual diff required WBC Differential Manual diff final Seg Neuts % (Manual) 60 Band Neuts % (Manual) 9 H Lymphocytes % (Manual) 9 Monocytes % (Manual) 17 H Eosinophils % (Manual) 3 Basophils % (Manual) 1 Myelocytes % (Man) 1 H Abs Neuts (Manual) 7.7 Differential Comment . Platelet Estimate Normal Platelet Morphology Enlarged H Puncture Site Art line Patient Temperature 98.6 O2 Saturation 90 ABG pH 7.33 L ABG pCO2 66 H* ABG pO2 70 ABG HCO3 34 H ABG O2 Content 14.3 ABG Base Excess 8.4 H ABG Methemoglobin 1.4 Hemoglobin 11.3 L Carboxyhemoglobin 1.4 O2 Delivery Device Ventilator Vent Setting Pc/ac Inspired O2 40 Critical Value Yes Sodium Potassium Chloride Carbon Dioxide Anion Gap BUN Creatinine Estimated GFR POC Glucose 91 Random Glucose Calcium 01/19/18 06:30 WBC RBC Hgb Hct MCV MCH MCHC RDW Plt Count MPV Prelim Diff (Auto) WBC Differential Seg Neuts % (Manual) Band Neuts % (Manual) Lymphocytes % (Manual) Monocytes % (Manual) Eosinophils % (Manual) Basophils % (Manual) Myelocytes % (Man) Abs Neuts (Manual) Differential Comment Platelet Estimate Platelet Morphology Puncture Site Patient Temperature O2 Saturation ABG pH ABG pCO2 ABG pO2 ABG HCO3 ABG O2 Content ABG Base Excess ABG Methemoglobin Hemoglobin Carboxyhemoglobin O2 Delivery Device Vent Setting Inspired O2 Critical Value Sodium 140 Potassium 3.5 Chloride 98 Carbon Dioxide 35.8 H Anion Gap 6 BUN 23 H Creatinine 0.69 Estimated GFR Greater than 89 POC Glucose Random Glucose 96 Calcium 8.5 Imaging: Impressions Chest X-Ray 01/18/18 04:00 CONCLUSION: Unchanged right lower lobe consolidation. Chest X-Ray 01/18/18 11:26 CONCLUSION: 1. Right IJ central line distal tip overlies the SVC. No pneumothorax is visualized. 2. Stable opacity at the right lung base. Abdomen X-Ray 01/18/18 11:51 CONCLUSION: Feeding tube distal tip is in the distal stomach in the antropyloric region. Chest X-Ray 01/19/18 07:05 CONCLUSION: Mild interstitial opacity in the mid aspect of the lungs bilaterally. Although nonspecific this could represent a mild degree of interstitial pulmonary edema. Otherwise, there is improved aeration at the right lung base. Objective Remarks: GEN: Intubated and sedated, ill appearing, encephalopathic. HEENT: Reactive pupils 2mm, Trachea midline, orotracheal intubation, neck supple CARDIO: Tachycardic rate and rhythm, NL S1S2, no JVD. PULM: Air entry markedly decreased in right base continued bilateral rhonchi and some mobile secretions persist. ABD/GI: Soft, non-distended. No guarding, bowel sounds are active. No tenderness. EXT/MSK: 2+ peripheral edema, warm, adequately perfused. SKIN: No rashes or lesions. Well perfused. NEURO: Sedated, orally intubated on mechanical ventilation. Withdraws 4 limbs to noxious stimulation. Opens eyes but does not track. Strong cough and gag reflex persist. No more tremors or seizures. Assessment and Plan - Problem List (1) Heroin overdose Code(s): T40.1X1A - Poisoning by heroin, accidental (unintentional), initial encounter Status: Acute (2) Polysubstance abuse Code(s): F19.10 - Other psychoactive substance abuse, uncomplicated Status: Chronic (3) Cocaine abuse Code(s): F14.10 - Cocaine abuse, uncomplicated Status: Acute (4) Elevated ETOH level Code(s): R78.0 - Finding of alcohol in blood Status: Acute (5) Marijuana abuse Code(s): F12.10 - Cannabis abuse, uncomplicated Status: Acute (6) TORREY (acute kidney injury) Code(s): N17.9 - Acute kidney failure, unspecified Status: Acute (7) Severe sepsis Code(s): A41.9 - Sepsis, unspecified organism; R65.20 - Severe sepsis without septic shock Status: Acute (8) Acute respiratory failure with hypoxia Code(s): J96.01 - Acute respiratory failure with hypoxia Status: Acute (9) Aspiration pneumonia Code(s): J69.0 - Pneumonitis due to inhalation of food and vomit Status: Acute (10) Vomiting Code(s): R11.10 - Vomiting, unspecified Status: Acute (11) Hyperglycemia Code(s): R73.9 - Hyperglycemia, unspecified Status: Acute (12) Protein-calorie malnutrition, moderate Code(s): E44.0 - Moderate protein-calorie malnutrition Status: Acute - Assessment and Plan Plan: NEURO: Heroin overdose Polysubstance abuse (marijuana, opiate, cocaine) Propofol/ versed/ fentanyl for sedation Thiamine/multivitamin supplementation CTH negative Tolerance to narcotic analgesia implies chronic narcotic use On methadone to wean fentanyl. Continue librium, reduced to 25 mg p.o. twice daily No further withdrawal symptomatology. RESP: Acute hypoxemic respiratory failure Acute aspiration pneumonia Intubated in ED 01/05 due to hypoxia. inhaled flolan titrated down to 30 ng/kg/min. Switched from APRV to pressure control mode mechanical ventilation inverse ratio with neuromuscular blockade and prone ventilation on 01/18 with decrease in FiO2 requirement DuoNeb every 6 hours. Albuterol every 2 hours as needed. CXR shows improvement RLL opacity following proning CT chest with dense bilateral basilar consolidations and small right pleural effusion Considerable sputum withdrawn from right lower lobe yesterday during bronchoscopy, culture results pending CV: Telemetry and BP monitoring in ICU GI: Continue tube feedings via dobhoff, advance to goal as tolerated. Having high residuals. On Reglan IV. May need to decrease fentanyl gtt as also on methadone. Zofran prn. FEN/RENAL: TORREY - suspect pre-renal secondary to overdose and sepsis, improved CPK is normal Urine output adequate Increase Lasix 40 mg IV Q6H to mobilize fluid ID: Severe Sepsis secondary to aspiration pneumonia Continue for aspiration. MRSA swab negative Blood cultures from 01/05 growing staph epidermidis in both bottles, repeat cultures sent 01/06 no growth at 1 day Consulted ID for antibiotic management in view of worsening respiratory status/ sepsis. On zosyn/ Vancomycin IV. Organism eludes us, sputum culture from 01/16 pending result HEME: No acute hematologic issues aside from leukocytosis.. Coags are normal. ENDO: Acute hyperglycemia Monitor bedside glucose every 6 hours and administer low-dose insulin sliding scale as indicated. Poor diabetic control has been an intermittent problem PROPH: -PPI -SCDs/ lovenox ACCESS: RIJ central line placed 01/18 OVERALL: This patient remains critically ill requiring quite high levels of ventilator support for aspiration pneumonia and heroin drug overdose. His initial response to aggressive medical therapy has been poor, undoubtedly related to chronic debilitation and poor baseline nutritional status. His long- term prognosis is guarded, largely due to concerns about his nutritional and immune status. He initially failed bilevel ventilation but did more poorly on conventional. He requires constant manipulation of the assessment of his arterial blood gases, fluid removal, and antibiotic adjustment. He remains very unstable from a respiratory standpoint. Critical care time 45 minutes aside from procedures.
--- NOTE | 2018-01-19 12:02 | P.PNID ---
Subjective Remarks: Patient nonresponsive on the ventilator. FiO2 decreased to 40%. Sedated. Prone on roto bed. Continues to have low-grade fever. Blood culture from 01/06 as no growth. Sputum culture has normal alistair. 37-year-old white male who was brought in to the emergency department when he was found down by a friend. The patient was noted to have overdosed on drugs. He was noted to have used IV heroin. In the emergency department, his temperature was normal. Chest x-ray was performed and showed an elevation of the right hemidiaphragm and right lower lobe consolidation versus atelectasis and small to moderate-sized right pleural effusion. The white blood cell count was elevated at 14.3. Blood cultures on admission had Staph coagulase negative. Past Medical History: PAST MEDICAL HISTORY: Intravenous drug abuse. Allergies/Adverse Reactions: Allergies No Allergy Information Available Allergy (Unverified 01/05/18 03:22) UTO Objective Vital Signs 01/18/18 12:00 01/18/18 13:00 01/18/18 13:29 Temperature 99.1 F Pulse Rate 79 78 Respiratory Rate 18 Blood Pressure 121/73 Pulse Oximetry 92 L 94 L 94 L 01/18/18 14:00 01/18/18 15:00 01/18/18 16:00 Temperature 99.1 F 99.3 F Pulse Rate 78 78 Respiratory Rate Blood Pressure 121/72 112/58 L Pulse Oximetry 93 L 94 L 93 L 01/18/18 16:15 01/18/18 17:00 01/18/18 18:00 Temperature 99.7 F H 100.4 F H Pulse Rate 78 80 Respiratory Rate 18 Blood Pressure 139/91 H Pulse Oximetry 91 L 93 L 98 01/18/18 19:00 01/18/18 19:57 01/18/18 20:00 Temperature 100.9 F H 100.9 F H Pulse Rate 84 82 Respiratory Rate 18 18 18 Blood Pressure 122/67 Pulse Oximetry 96 95 100 01/18/18 21:00 01/18/18 22:00 01/18/18 23:00 Temperature 100.4 F H 100.6 F H 99.7 F H Pulse Rate 83 88 89 Respiratory Rate 18 18 18 Blood Pressure 122/74 Pulse Oximetry 95 93 L 93 L 01/19/18 00:00 01/19/18 01:00 01/19/18 01:15 Temperature 99.7 F H 99.5 F Pulse Rate 84 86 Respiratory Rate 18 18 18 Blood Pressure 126/78 Pulse Oximetry 93 L 92 L 92 L 01/19/18 02:00 01/19/18 03:00 01/19/18 03:51 Temperature 99.7 F H 99.9 F H Pulse Rate 89 95 H Respiratory Rate 18 18 18 Blood Pressure 122/74 Pulse Oximetry 89 L 94 L 93 L 01/19/18 04:00 01/19/18 05:00 01/19/18 06:00 Temperature 100.2 F H 100.6 F H 100.9 F H Pulse Rate 92 H 93 H 93 H Respiratory Rate 18 18 18 Blood Pressure 105/54 L 142/89 H Pulse Oximetry 93 L 92 L 95 01/19/18 07:00 01/19/18 08:00 01/19/18 08:55 Temperature 100.8 F H Pulse Rate 94 H 93 H Respiratory Rate 18 Blood Pressure 118/65 Pulse Oximetry 92 L 91 L 97 01/19/18 09:00 01/19/18 10:00 01/19/18 11:00 Temperature 99.4 F Pulse Rate 84 80 79 Respiratory Rate Blood Pressure 121/72 Pulse Oximetry 93 L 88 L 95 Intake & Output 01/18/18 01/19/18 01/19/18 18:59 06:59 18:59 Intake Total 870 / 870 2519 / 2519 450 / 450 Output Total 2875 / 2875 1350 / 1350 Balance -2004 / 1169 / 1169 450 / 450 Intake: IV 750 / 750 2220 / 2220 450 / 450 Nimbex Inj 100 MG In NS Inj 240 750 / 750 250 / 250 ML @ 1 MCG/KG/MIN 14.82 mls/hr IV.CONT TITRATE PRN Rx#: [id number] Versed Inj 100 mg In 100 ml @ 2 100 / 100 MG/HR 2 mls/hr IV.CONT TITRATE PRN Rx#:[id number] Diprivan 1000 mg/100 ml Inj 1, 200 / 200 300 / 300 000 mg In 100 ml @ 5 MCG/KG/MIN 2.585 mls/hr IV.CONT TITRATE PRN Rx#:[id number] Zosyn 4.5 GM Premix 4.5 gm In 100 / 100 200 / 200 200 / 200 100 ml @ 200 mls/hr IV.SIG Q6H [facility] Rx#:[id number] KCl 20 mEq Premix Inj 20 meq In 100 / 100 100 ml @ 50 mls/hr IV.SIG Q2H PRN Rx#:[id number] Vancomycin Inj 2,000 MG In NS 520 / 520 Inj 500 ML @ 260 mls/hr IV.SIG Q12H [facility] Rx#:[id number] fentaNYL 10 mcg/mL Premix Drip 250 / 250 250 / 250 2,500 mcg In 250 ml @ 50 MCG/HR 5 mls/hr IV.SIG TITRATE PRN Rx #:[id number] Flolan (30,000 ng/mL) Neb 60 ML 100 / 100 100 / 100 In NS Inj 40 ML @ 5 mls/hr NEB Q8H [facility] Rx#:[id number] Tube Feeding 60 / 60 239 / 239 Tube Irrigant 60 / 60 Water Bolus Amount 60 / 60 Output: Urine 1050 / 1050 Urine Amount (Catheter) 2575 / 2575 Indwelling Urethral Catheter 2575 / 2575 Gastric Drainage 300 / 300 300 / 300 Left Nare 250 / 250 Orogastric Tube 50 / 50 300 / 300 Other: Date of Last Bowel Movement 02/13/18 01/14/18 01/14/18 01/16/18 16:40 Sputum - Endotracheal Gram Stain - Final 01/16/18 16:40 Sputum - Endotracheal Sputum Culture - Final Rare growth normal respiratory alistair 01/14/18 15:15 Sputum - Endotracheal Gram Stain - Final 01/14/18 15:15 Sputum - Endotracheal Sputum Culture - Final Rare growth normal respiratory alistair at 24 hours Lab - Hematology Results 01/18/18 01/19/18 04:35 05:20 WBC 11.9 H 11.0 RBC 3.34 L 3.42 L Hgb 11.0 L 11.3 L Hct 32.0 L 32.7 L MCV 95.9 95.8 MCH 33.1 33.1 MCHC 34.5 34.6 RDW 13.5 13.1 Plt Count 342 409 MPV 9.0 9.4 Prelim Diff (Auto) Slide review pending Manual diff required Neut % (Auto) 65.4 Lymph % (Auto) 8.[address] [place] % (Auto) 22.1 H Eos % (Auto) 2.9 Baso % (Auto) 0.8 Neut # (Auto) 7.8 H Lymph # (Auto) 1.0 [place] # (Auto) 2.6 H Eos # (Auto) 0.3 Baso # (Auto) 0.1 WBC Differential Manual diff final Manual diff final Seg Neuts % (Manual) 68 60 Band Neuts % (Manual) 5 9 H Lymphocytes % (Manual) 9 9 Monocytes % (Manual) 15 H 17 H Eosinophils % (Manual) 1 3 Basophils % (Manual) 1 1 Myelocytes % (Man) 1 H 1 H Abs Neuts (Manual) 8.8 H 7.7 Differential Comment . . Platelet Estimate Normal Normal Platelet Morphology Normal Enlarged H Lab - Chemistry Results 01/17/18 01/17/18 01/18/18 17:40 23:55 04:35 Sodium 138 Potassium 3.4 L Chloride 99 Carbon Dioxide 33.0 H Anion Gap 6 BUN 21 H Creatinine 0.82 Estimated GFR Greater than 89 POC Glucose 101 106 Random Glucose 102 Calcium 8.8 01/18/18 01/18/18 01/19/18 11:43 23:03 06:30 Sodium 140 Potassium 3.5 Chloride 98 Carbon Dioxide 35.8 H Anion Gap 6 BUN 23 H Creatinine 0.69 Estimated GFR Greater than 89 POC Glucose 108 91 Random Glucose 96 Calcium 8.5 01/19/18 11:22 Sodium Potassium Chloride Carbon Dioxide Anion Gap BUN Creatinine Estimated GFR POC Glucose 98 Random Glucose Calcium Imaging: ITS Impressions Head CT 01/05/18 05:01 CONCLUSION: 1. No acute intracranial findings. 2. Air-fluid levels in the right maxillary and sphenoid sinuses suggesting possible acute sinusitis versus air-fluid levels related to intubation.. . Chest CT 01/08/18 00:00 CONCLUSION: 1. Increasing airspace disease especially in both upper lobes. 2. Persistent dense consolidation in the lower lobes without significant improvement. 3. Increasing right pleural effusion. Abdomen X-Ray 01/18/18 11:51 CONCLUSION: Feeding tube distal tip is in the distal stomach in the antropyloric region. Chest X-Ray 01/19/18 07:05 CONCLUSION: Mild interstitial opacity in the mid aspect of the lungs bilaterally. Although nonspecific this could represent a mild degree of interstitial pulmonary edema. Otherwise, there is improved aeration at the right lung base. Physical Exam: PHYSICAL EXAMINATION: GENERAL: On the ventilator. Unresponsive. HEENT: Oropharynx intubated. LUNGS: Decreased breath sounds. HEART: Regular S1, S2, without murmurs, rubs or gallops. ABDOMEN: Unable to assess because of rotator bed. EXTREMITIES: No clubbing or cyanosis or edema. No embolic lesions visible. SKIN: No diffuse rash. NEUROLOGIC: Unable to assess. PSYCHIATRIC: Unable to assess. Assessment and Plan - Plan IMPRESSION: 1. Pneumonia. 2. Bacteremia due to Staphylococcus coag negative. Repeat blood cultures have no growth. This possibly could be contamination. 3. Acute respiratory failure. 4. Intravenous drug use. 5. Probable aspiration. Chest x-ray shows improved aeration. RECOMMENDATIONS: 1. Continue piperacillin/tazobactam. 2. Monitor temperature. 3. Monitor clinical status.
--- NOTE | 2018-01-19 18:47 | XR ---
EXAM DATE: 01/19/2018 6:36 PM EST AGE/SEX: 37 years / Male INDICATIONS: F/U dobhoff position. CLINICAL DATA: This is the patient's subsequent encounter. Patient reports that signs and symptoms h ave been present for 2 weeks and indicates a pain score of Nonresponsive. MEDICAL/SURGICAL HISTORY: . Smoker. IV drug user. Non-responsive. COMPARISON: [facility] [place], [facility] [place], 01/18/2018. . FINDINGS: Dobbhoff feeding tube tip is in the mid stomach, actually a little more proximal than was yesterday. There appears to be a nasogastric tube with tip in the upper stomach, sidehole near the GE junction. CONCLUSION: Nasogastric tube tip is in the upper stomach and Dobbhoff feeding tube tip is in the mid stomach. Electronically signed by: Yo Gautam MD 01/19/2018 6:46 PM EST
[2018-01-19] MEDS ORDERED: Epoprostenol (30,000/mL) Neb 40 ML in Sodium Chlor 0.9% Inj 60 ML NEB SCH (20:00)
[2018-01-19] MEDS ORDERED: Dextrose 5%/NaCl 0.9% Inj 1,000 ML IV.CONT SCH (23:15)
[2018-01-20] MEDS: Propofol 1000 mg/100 ml Inj 1,000 MG/100 ML BOTTLE IV.CONT PRN ×6 (01:00→21:22)
[2018-01-20] MEDS: Insulin NovoLOG Aspart Correctional Sugar Inj SQ SCH ×4 (01:08→18:47)
[2018-01-20] MEDS: Cisatracurium Inj 100 MG in Sodium Chlor 0.9% Inj 240 ML IV.CONT PRN ×8 (03:39→22:12)
[2018-01-20] MEDS: Oral Hygiene Kit OROPHARYNG SCH ×4 (03:54→16:56)
[2018-01-20] MEDS ORDERED: Epoprostenol (30,000/mL) Neb 20 ML in Sodium Chlor 0.9% Inj 80 ML NEB SCH (04:00)
[2018-01-20] MEDS: Piperacil/Tazo 4.5 GM Premix 4.5 GM/100 ML BAG IV.SIG SCH ×4 (04:07→23:00)
[2018-01-20 04:30] LABS: Baso # (Auto) 0.1 th/mm3 (0.0-0.2); Baso % (Auto) 1.1 % (0.0-2.0); Eos # (Auto) 0.4 th/mm3 (0.0-0.4); Eos % (Auto) 5.8 % (0.0-4.0); Hematocrit 31.5 % (39.0-51.0); Lymph # (Auto) 1.3 th/mm3 (1.0-4.8); Lymph % (Auto) 17.5 % (9.0-44.0); Mean Corpuscular HGB Conc 34.8 % (32.0-36.0); Mean Corpuscular Hemoglobin 32.8 pg (27.0-34.0); Mean Corpuscular Volume 94.5 fL (80.0-100.0); Mean Platelet Volume 9.1 fL (7.0-11.0); Mono # (Auto) 1.7 th/mm3 (0.0-0.9); Mono % (Auto) 23.3 % (0.0-8.0); Neut # (Auto) 3.9 th/mm3 (1.8-7.7); Neut % (Auto) 52.3 % (16.0-70.0); Platelet Count 440 th/mm3 (150-450); Red Blood Count 3.34 mil/mm3 (4.50-5.90); Red Cell Distribution Width 13.4 % (11.6-17.2); White Blood Count 7.4 th/mm3 (4.0-11.0)
[2018-01-20 04:44] LABS: Anion Gap 6 meq/L (5-15); Blood Urea Nitrogen 20 mg/dL (7-18); Calcium 8.5 mg/dL (8.5-10.1); Carbon Dioxide 35.8 meq/L (21.0-32.0); Chloride 99 meq/L (98-107); Glomerular Filtration Rate Greater Than 89 mL/min (>89); Glucose,Random 90 mg/dL (74-106); Sodium 141 meq/L (136-145)
[2018-01-20 04:52] LABS: Potassium 2.9 meq/L (3.5-5.1)
[2018-01-20] MEDS: Methadone 10 MG Tablet PO SCH ×2 (05:18→16:55)
[2018-01-20] MEDS: chlordiazePOXIDE 25 MG Capsule PO SCH ×2 (05:18→16:55)
[2018-01-20] MEDS: Potassium Chlor 40 mEq Premix 40 MEQ/100 ML PIGGYBACK IV.SIG PRN ×2 (05:31→09:49)
[2018-01-20 05:40] LABS: ABG PCO2 47 mmHg (38-42); ABG PO2 144 mmHg (61-120)
[2018-01-20] MEDS: fentaNYL 10 mcg/mL Premix Drip 2,500 MCG/250 ML BAG IV.SIG PRN ×2 (06:57→22:13)
--- NOTE | 2018-01-20 08:41 | XR ---
EXAM DATE: 01/20/2018 8:34 AM EST AGE/SEX: 37 years / Male INDICATIONS: Dobbhoff placement. CLINICAL DATA: This is the patient's subsequent encounter. Patient reports that signs and symptoms h ave been present for 2 weeks and indicates a pain score of Nonresponsive. MEDICAL/SURGICAL HISTORY: . Smoker. IV drug user. None. None. COMPARISON: [facility] – [place], ABDOMEN 1V KUB, 01/19/2018. . FINDINGS: Single portable supine frontal view the abdomen demonstrates nasogastric tube tip in the gastric body . Feeding tube is also present with weighted tip in the right upper quadrant likely within the first portion the duodenum or gastric pylorus. There is a nonobstructive bowel gas pattern. CONCLUSION: Feeding tube distal tip is either in the first portion of the duodenum or pylorus region of the stoma ch. Electronically signed by: Yo Patricia MD 01/20/2018 8:39 AM EST
--- NOTE | 2018-01-20 08:42 | XR ---
EXAM DATE: 01/20/2018 8:35 AM EST AGE/SEX: 37 years / Male INDICATIONS: Respiratory Disease. CLINICAL DATA: This is the patient's subsequent encounter. Patient reports that signs and symptoms h ave been present for 2 weeks and indicates a pain score of Nonresponsive. MEDICAL/SURGICAL HISTORY: . Smoker. IV drug user. None. COMPAR[place]: [facility] [place] 1V SINGLE AP, 01/19/2018. [facility] [place] 1V SINGLE AP, 01/18/2018. . FINDINGS: Portable AP view of the chest demonstrates a normal-sized cardiac silhouette. ETT, nasogastric tube, feeding tube, and right IJ line remain present. Additionally, EKG lines overlie the patient. There is elevation the right hemidiaphragm with small oral based opacity. No airspace consolidation or pneumo thorax is identified. CONCLUSION: Small pleural-based opacity on the right likely representing a small volume of pleural fluid. No othe r abnormality is identified. Electronically signed by: Yo Patricia MD 01/20/2018 8:41 AM EST
[2018-01-20] MEDS: Chlorhexidine 0.12% Oral Kit 15 ML UDC OROPHARYNG SCH ×2 (08:58→20:47)
[2018-01-20] MEDS: Famotidine PF Inj 20 MG/2 ML Vial IV.PUSH SCH ×2 (08:59→20:46)
[2018-01-20] MEDS: Senna/Docusate Sodium 8.6/50 MG Tablet PO SCH ×2 (09:01→20:47)
[2018-01-20] MEDS: Beneprotein Powder Packet G-TUBE SCH ×3 (09:02→18:29)
[2018-01-20] MEDS: Enoxaparin Inj 40 MG/0.4 ML Syringe SQ SCH (09:02)
[2018-01-20] MEDS: Midazolam 100 MG/100 ML Inj 100 MG/100 ML BAG IV.CONT PRN ×2 (09:49→23:45)
--- NOTE | 2018-01-20 11:32 | P.PNCC ---
Subjective Subjective Remarks/Hospital Course: 37-year-old male who is brought to [facility] emergency department after friends contacted [facility] due to decreased mental status with suspected heroin overdose. He had used heroin earlier in the evening. [facility] reportedly found him laying in emesis with a thready pulse. They gave him sequential doses of Narcan to a total of 2.4 mg IV at which point he became more awake and alert. He then had multiple episodes of vomiting in route. NG tube was placed by the paramedics and they aspirated gastric contents and then removed s NG prior to arrival. His room air sats were reportedly 84% and he was placed on NR. Patient told Dr. Lovett that this was his first time using heroin and that he injected it. CXR demonstrated RLL opacity. He was started on Unasyn for aspiration pneumonia and given nebs. He eventually was intubated due to hypoxia with sats in high 80s despite nonrebreather. [facility] Shopper consulted for admission. 01/06: Remains sedated and intubated, requires PEEP 12 and FiO2 70%, will try to wean these today if tolerated. 01/07: Agitated overnight and this morning, 2 episodes where the patient bit down on ETT, desaturated, and became unstable. Not tolerating pressure support trials. 01/08: Remains sedated, orally intubated on mechanical ventilation. PEEP remains at +12. CT chest done today shows worsening consolidations. Pleural effusion. 01/09: Remains critically ill with severe bilateral lower lobe consolidated pneumonias. Requiring markedly elevated mean airway pressure still. Patient is nutritionally depleted and not responding well to our aggressive medical treatment. 01/10: Continued requirements for markedly elevated fractional inspiratory oxygen concentration. Continued dense consolidation in both lower lobes PEEP reduced to avoid overexpansion of upper lobes. 01/11: Converted to airway pressure release ventilation because of inability to oxygenate adequately. We will probably have to add Flolan. Lengthy discussion with family about the severity of his respiratory problems and pneumonia. 01/12: Some progress but remains with high A-aO2 gradient. ET tube above clavicles; repositioned. Copious foul secretions. High requirement requirements for analgesia and sedation due to alcohol history. Will continue methadone and start scheduled Librium in an attempt to lower the intravenous requirements. 01/13: Remains sedated, orally intubated on mechanical ventilation. 01/14: Remains sedated, orally intubated on mechanical ventilation. Remains on APRV mode. On inhaled Flolan. 01/15: Remains sedated, intubated on AP RV mode mechanical ventilation. Inhaled Flolan titrated down to 30 ng/kg/min. Placed on rotarest bed yesterday. Starting Lasix to mobilize fluid in view of positive fluid balance. 01/16: Dense consolidation right lower lobe causing severe shunting and hypoxemia. He will likely require pronating to drain the basilar lower lobes. Patient remains critically ill with an unrelenting bilateral pneumonia proving refractory to our best antibiotic and ventilatory interventions. 01/17: Persistent shunting through consolidated right lower lobe is producing profound hypoxemia. Presently requiring roto-rest bed and markedly elevated mean airway pressures on mechanical ventilation. Sputum obtained during alveolar lavage of the right lower lobe yesterday is still pending. Patient remains critically ill and generally edematous. 01/18: Not progressing on Roto-Rest bed. Remains on 65% FiO2, inhaled Flolan, AP RV mode mechanical ventilation. We will attempt to place on prone ventilation after neuromuscular blockade and switching to pressure control inverse ratio mode mechanical ventilation. Also placing Dobbhoff to see if he tolerates tube feeds better and will be placing central line 01/19: Placed on prone ventilation on 01/19 after switching to PC/AC PIP+18, PEEP+ 15, Rate 18, I :E 3.5:1, FiO2 65%. FiO2 requirement down to 40% with proning. Remains on inhaled flolan. On neuromuscular blockade. 01/20: Continue to include ventilation. Flolan being titrated down. Chest x- ray showed significant improvement in aeration bilaterally. Objective Vital Signs / I&O: Vital Signs 01/19/18 12:00 01/19/18 12:24 01/19/18 13:00 Temperature 98.5 F Pulse Rate 78 80 84 Respiratory Rate Blood Pressure 127/81 119/70 Pulse Oximetry 95 94 L 94 L 01/19/18 14:00 01/19/18 15:00 01/19/18 16:00 Temperature 99.4 F Pulse Rate 83 80 78 Respiratory Rate 18 18 Blood Pressure 110/64 99/57 L Pulse Oximetry 93 L 94 L 94 L 01/19/18 16:01 01/19/18 16:23 01/19/18 16:28 Temperature Pulse Rate 78 79 Respiratory Rate 18 Blood Pressure 102/58 L 104/57 L Pulse Oximetry 94 L 94 L 96 01/19/18 17:00 01/19/18 18:00 01/19/18 19:00 Temperature 99.3 F Pulse Rate 78 78 80 Respiratory Rate 18 18 Blood Pressure 111/64 Pulse Oximetry 94 L 95 95 01/19/18 20:00 01/19/18 21:00 01/19/18 21:02 Temperature 99.3 F Pulse Rate 75 75 Respiratory Rate 18 Blood Pressure 117/70 Pulse Oximetry 95 96 96 01/19/18 22:00 01/19/18 23:00 01/20/18 00:00 Temperature 99.1 F Pulse Rate 74 77 78 Respiratory Rate 18 18 18 Blood Pressure 148/100 H 108/59 L Pulse Oximetry 96 96 96 01/20/18 01:00 01/20/18 01:21 01/20/18 02:00 Temperature 99.3 F 99.5 F Pulse Rate 78 78 Respiratory Rate 18 18 18 Blood Pressure 106/54 L Pulse Oximetry 96 96 96 01/20/18 03:00 01/20/18 04:00 01/20/18 04:28 Temperature 99.3 F 99.1 F Pulse Rate 76 75 Respiratory Rate 18 18 18 Blood Pressure 132/80 Pulse Oximetry 96 99 96 01/20/18 05:00 01/20/18 06:00 01/20/18 07:00 Temperature 99.1 F 99.3 F Pulse Rate 77 78 81 Respiratory Rate 18 18 Blood Pressure 137/89 Pulse Oximetry 96 95 96 01/20/18 08:00 01/20/18 08:31 01/20/18 09:00 Temperature 97.8 F Pulse Rate 79 76 Respiratory Rate 18 Blood Pressure 129/80 Pulse Oximetry 94 L 40 L 93 L 01/20/18 10:00 Temperature Pulse Rate 77 Respiratory Rate Blood Pressure 104/56 L Pulse Oximetry 96 Intake & Output 01/19/18 01/20/18 01/20/18 18:59 06:59 18:59 Intake Total 1652 / 1652 1830 / 1830 550 / 550 Output Total 3450 / 3450 2200 / 2200 Balance -1798 / -1798 -370 / -370 550 / 550 Weight 104.4 kg Intake: IV 1500 / 1500 1760 / 1760 550 / 550 Nimbex Inj 100 MG In NS Inj 240 750 / 750 1000 / 1000 250 / 250 ML @ 1 MCG/KG/MIN 14.82 mls/hr IV.CONT TITRATE PRN Rx#: [id number] Versed Inj 100 mg In 100 ml @ 2 100 / 100 100 / 100 MG/HR 2 mls/hr IV.CONT TITRATE PRN Rx#:[id number] Diprivan 1000 mg/100 ml Inj 1, 200 / 200 210 / 210 100 / 100 000 mg In 100 ml @ 5 MCG/KG/MIN 2.585 mls/hr IV.CONT TITRATE PRN Rx#:[id number] Zosyn 4.5 GM Premix 4.5 gm In 300 / 300 200 / 200 100 ml @ 200 mls/hr IV.SIG Q6H VU Rx#:[id number] KCl 40 mEq Premix Inj 40 meq In 100 / 100 100 ml @ 25 mls/hr IV.SIG Q2H PRN Rx#:[id number] fentaNYL 10 mcg/mL Premix Drip 250 / 250 250 / 250 2,500 mcg In 250 ml @ 50 MCG/HR 5 mls/hr IV.SIG TITRATE PRN Rx #:[id number] Tube Feeding 152 / 152 40 / 40 Water Bolus Amount 30 / 30 Output: Urine 2200 / 2200 Urine Amount (Catheter) 3150 / 3150 Indwelling Urethral Catheter 3150 / 3150 Gastric Drainage 300 / 300 Orogastric Tube 300 / 300 Other: Date of Last Bowel Movement 01/14/18 01/19/18 # Bowel Movements 1 # Incontinent Bowel Movements 0 Result Diagrams: 01/20/18 04:00 01/20/18 04:00 Objective Remarks: GEN: Intubated and sedated, on neuromuscular blockade HEENT: Reactive pupils 2mm, Trachea midline, orotracheal intubation, neck supple CARDIO: S1-S2 regular, no murmur. Neck: Right IJ central line in place PULM: Orally intubated on mechanical ventilation, good air entry bilaterally, scattered rhonchi, no wheezing ABD/GI: Soft, non-distended. No guarding, bowel sounds are active. No tenderness. EXT/MSK: 2+ peripheral edema, warm, adequately perfused. SKIN: No rashes or lesions. Well perfused. Skin blistering over abdominal wall. NEURO: Sedated, orally intubated on mechanical ventilation. On neuromuscular blockade Assessment and Plan - Problem List (1) Heroin overdose Code(s): T40.1X1A - Poisoning by heroin, accidental (unintentional), initial encounter Status: Acute (2) Polysubstance abuse Code(s): F19.10 - Other psychoactive substance abuse, uncomplicated Status: Chronic (3) Cocaine abuse Code(s): F14.10 - Cocaine abuse, uncomplicated Status: Acute (4) Elevated ETOH level Code(s): R78.0 - Finding of alcohol in blood Status: Acute (5) Marijuana abuse Code(s): F12.10 - Cannabis abuse, uncomplicated Status: Acute (6) TORREY (acute kidney injury) Code(s): N17.9 - Acute kidney failure, unspecified Status: Acute (7) Severe sepsis Code(s): A41.9 - Sepsis, unspecified organism; R65.20 - Severe sepsis without septic shock Status: Acute (8) Acute respiratory failure with hypoxia Code(s): J96.01 - Acute respiratory failure with hypoxia Status: Acute (9) Aspiration pneumonia Code(s): J69.0 - Pneumonitis due to inhalation of food and vomit Status: Acute (10) Vomiting Code(s): R11.10 - Vomiting, unspecified Status: Acute (11) Hyperglycemia Code(s): R73.9 - Hyperglycemia, unspecified Status: Acute (12) Protein-calorie malnutrition, moderate Code(s): E44.0 - Moderate protein-calorie malnutrition Status: Acute - Assessment and Plan Plan: NEURO: Heroin overdose Polysubstance abuse (marijuana, opiate, cocaine) Propofol/ versed/ fentanyl for sedation. On Nimbex for neuromuscular blockade Thiamine/multivitamin supplementation CT head negative Tolerance to narcotic analgesia implies chronic narcotic use On methadone to wean fentanyl. Continue librium, reduced to 25 mg p.o. twice daily RESP: Acute hypoxemic respiratory failure Acute aspiration pneumonia Intubated in ED 01/05 due to hypoxia. inhaled flolan being titrated down and hopefully will discontinue on 01/21 Switched from APRV to pressure control mode mechanical ventilation inverse ratio with neuromuscular blockade and prone ventilation on 01/18 with decrease in FiO2 requirement. Inspiratory pressure to keep tidal volume 450-500 cc, rate 18 peep +15, decreasing I time gradually, FiO2 40% DuoNeb every 6 hours. Albuterol every 2 hours as needed. CXR shows improvement RLL opacity following proning CT chest with dense bilateral basilar consolidations and small right pleural effusion Considerable sputum withdrawn from right lower lobe yesterday during bronchoscopy, culture results normal alistair. Significant improvement in lung aeration following prone ventilation. CV: Telemetry and BP monitoring in ICU Being diuresed to mobilize fluid GI: Continue tube feedings via dobhoff, advance to goal as tolerated. Having high residuals. On Reglan IV. Decrease fentanyl gtt as also on methadone. Zofran prn. FEN/RENAL: TORREY - suspect pre-renal secondary to overdose and sepsis, improved CPK is normal Urine output adequate Increased Lasix 40 mg IV Q6H to mobilize fluid on 01/19. Added Diamox for 01/20 and 01/21 for metabolic alkalosis secondary to diuresis with Lasix. ID: Severe Sepsis secondary to aspiration pneumonia MRSA swab negative Blood cultures from 01/05 growing staph epidermidis in both bottles, repeat cultures sent 01/06 no growth at 1 day Consulted ID for antibiotic management in view of worsening respiratory status/ sepsis. On zosyn IV. Vancomycin discontinued Organism eludes us, sputum culture from 01/16 pending result HEME: No acute hematologic issues aside from leukocytosis.. Coags are normal. ENDO: Acute hyperglycemia Monitor bedside glucose every 6 hours and administer low-dose insulin sliding scale as indicated. Poor diabetic control has been an intermittent problem PROPH: -PPI -SCDs/ lovenox ACCESS: RIJ central line placed 01/18 OVERALL: This patient remains critically ill requiring quite high levels of ventilator support for aspiration pneumonia and heroin drug overdose. His initial response to aggressive medical therapy has been poor, undoubtedly related to chronic debilitation and poor baseline nutritional status. His long- term prognosis is guarded, largely due to concerns about his nutritional and immune status. He initially failed bilevel ventilation but did more poorly on conventional. Now on prone ventilation. He requires constant manipulation of the assessment of his arterial blood gases, fluid removal, and antibiotic adjustment. He remains very unstable from a respiratory standpoint. Critical care time 45 minutes aside from procedures.
--- NOTE | 2018-01-20 11:33 | P.PNID ---
Subjective Remarks: Patient nonresponsive on the ventilator. FiO2 at 40%. Prone on roto bed. Temperature is lower. Blood culture from 01/06 as no growth. Sputum culture has normal alistair. 37-year-old white male who was brought in to the emergency department when he was found down by a friend. The patient was noted to have overdosed on drugs. He was noted to have used IV heroin. In the emergency department, his temperature was normal. Chest x-ray was performed and showed an elevation of the right hemidiaphragm and right lower lobe consolidation versus atelectasis and small to moderate-sized right pleural effusion. The white blood cell count was elevated at 14.3. Blood cultures on admission had Staph coagulase negative. Past Medical History: PAST MEDICAL HISTORY: Intravenous drug abuse. Allergies/Adverse Reactions: Allergies No Allergy Information Available Allergy (Verified 01/20/18 01:00) UTO Objective Vital Signs 01/19/18 12:00 01/19/18 12:24 01/19/18 13:00 Temperature 98.5 F Pulse Rate 78 80 84 Respiratory Rate Blood Pressure 127/81 119/70 Pulse Oximetry 95 94 L 94 L 01/19/18 14:00 01/19/18 15:00 01/19/18 16:00 Temperature 99.4 F Pulse Rate 83 80 78 Respiratory Rate 18 18 Blood Pressure 110/64 99/57 L Pulse Oximetry 93 L 94 L 94 L 01/19/18 16:01 01/19/18 16:23 01/19/18 16:28 Temperature Pulse Rate 78 79 Respiratory Rate 18 Blood Pressure 102/58 L 104/57 L Pulse Oximetry 94 L 94 L 96 01/19/18 17:00 01/19/18 18:00 01/19/18 19:00 Temperature 99.3 F Pulse Rate 78 78 80 Respiratory Rate 18 18 Blood Pressure 111/64 Pulse Oximetry 94 L 95 95 01/19/18 20:00 01/19/18 21:00 01/19/18 21:02 Temperature 99.3 F Pulse Rate 75 75 Respiratory Rate 18 Blood Pressure 117/70 Pulse Oximetry 95 96 96 01/19/18 22:00 01/19/18 23:00 01/20/18 00:00 Temperature 99.1 F Pulse Rate 74 77 78 Respiratory Rate 18 18 18 Blood Pressure 148/100 H 108/59 L Pulse Oximetry 96 96 96 01/20/18 01:00 01/20/18 01:21 01/20/18 02:00 Temperature 99.3 F 99.5 F Pulse Rate 78 78 Respiratory Rate 18 18 18 Blood Pressure 106/54 L Pulse Oximetry 96 96 96 01/20/18 03:00 01/20/18 04:00 01/20/18 04:28 Temperature 99.3 F 99.1 F Pulse Rate 76 75 Respiratory Rate 18 18 18 Blood Pressure 132/80 Pulse Oximetry 96 99 96 01/20/18 05:00 01/20/18 06:00 01/20/18 07:00 Temperature 99.1 F 99.3 F Pulse Rate 77 78 81 Respiratory Rate 18 18 Blood Pressure 137/89 Pulse Oximetry 96 95 96 01/20/18 08:00 01/20/18 08:31 01/20/18 09:00 Temperature 97.8 F Pulse Rate 79 76 Respiratory Rate 18 Blood Pressure 129/80 Pulse Oximetry 94 L 40 L 93 L 01/20/18 10:00 Temperature Pulse Rate 77 Respiratory Rate Blood Pressure 104/56 L Pulse Oximetry 96 Intake & Output 01/19/18 01/20/18 01/20/18 18:59 06:59 18:59 Intake Total 1652 / 1652 1830 / 1830 550 / 550 Output Total 3450 / 3450 2200 / 2200 Balance -1798 / -1798 -370 / -370 550 / 550 Weight 104.4 kg Intake: IV 1500 / 1500 1760 / 1760 550 / 550 Nimbex Inj 100 MG In NS Inj 240 750 / 750 1000 / 1000 250 / 250 ML @ 1 MCG/KG/MIN 14.82 mls/hr IV.CONT TITRATE PRN Rx#: [id number] Versed Inj 100 mg In 100 ml @ 2 100 / 100 100 / 100 MG/HR 2 mls/hr IV.CONT TITRATE PRN Rx#:[id number] Diprivan 1000 mg/100 ml Inj 1, 200 / 200 210 / 210 100 / 100 000 mg In 100 ml @ 5 MCG/KG/MIN 2.585 mls/hr IV.CONT TITRATE PRN Rx#:[id number] Zosyn 4.5 GM Premix 4.5 gm In 300 / 300 200 / 200 100 ml @ 200 mls/hr IV.SIG Q6H VU Rx#:[id number] KCl 40 mEq Premix Inj 40 meq In 100 / 100 100 ml @ 25 mls/hr IV.SIG Q2H PRN Rx#:[id number] fentaNYL 10 mcg/mL Premix Drip 250 / 250 250 / 250 2,500 mcg In 250 ml @ 50 MCG/HR 5 mls/hr IV.SIG TITRATE PRN Rx #:[id number] Tube Feeding 152 / 152 40 / 40 Water Bolus Amount 30 / 30 Output: Urine 2200 / 2200 Urine Amount (Catheter) 3150 / 3150 Indwelling Urethral Catheter 3150 / 3150 Gastric Drainage 300 / 300 Orogastric Tube 300 / 300 Other: Date of Last Bowel Movement 01/14/18 01/19/18 01/19/18 # Bowel Movements 1 # Incontinent Bowel Movements 0 01/16/18 16:40 Sputum - Endotracheal Gram Stain - Final 01/16/18 16:40 Sputum - Endotracheal Sputum Culture - Final Rare growth normal respiratory alistair Lab - Hematology Results 01/19/18 01/20/18 05:20 04:00 WBC 11.0 7.4 RBC 3.42 L 3.34 L Hgb 11.3 L 11.0 L Hct 32.7 L 31.5 L MCV 95.8 94.5 MCH 33.1 32.8 MCHC 34.6 34.8 RDW 13.1 13.4 Plt Count 409 440 MPV 9.4 9.1 Prelim Diff (Auto) Manual diff required Neut % (Auto) 52.3 Lymph % (Auto) 17.5 [place] % (Auto) 23.3 H Eos % (Auto) 5.8 H Baso % (Auto) 1.1 Neut # (Auto) 3.9 Lymph # (Auto) 1.3 [place] # (Auto) 1.7 H Eos # (Auto) 0.4 Baso # (Auto) 0.1 WBC Differential Manual diff final . Seg Neuts % (Manual) 60 Band Neuts % (Manual) 9 H Lymphocytes % (Manual) 9 Monocytes % (Manual) 17 H Eosinophils % (Manual) 3 Basophils % (Manual) 1 Myelocytes % (Man) 1 H Abs Neuts (Manual) 7.7 Differential Comment . Auto diff final Platelet Estimate Normal Platelet Morphology Enlarged H Lab - Chemistry Results 01/18/18 01/18/18 01/19/18 11:43 23:03 06:30 Sodium 140 Potassium 3.5 Chloride 98 Carbon Dioxide 35.8 H Anion Gap 6 BUN 23 H Creatinine 0.69 Estimated GFR Greater than 89 POC Glucose 108 91 Random Glucose 96 Calcium 8.5 01/19/18 01/19/18 01/20/18 11:22 17:12 00:13 Sodium Potassium Chloride Carbon Dioxide Anion Gap BUN Creatinine Estimated GFR POC Glucose 98 73 103 Random Glucose Calcium 01/20/18 01/20/18 03:58 04:00 Sodium 141 Potassium 2.9 L* Chloride 99 Carbon Dioxide 35.8 H Anion Gap 6 BUN 20 H Creatinine 0.65 Estimated GFR Greater than 89 POC Glucose 76 Random Glucose 90 Calcium 8.5 Imaging: ITS Impressions Head CT 01/05/18 05:01 CONCLUSION: 1. No acute intracranial findings. 2. Air-fluid levels in the right maxillary and sphenoid sinuses suggesting possible acute sinusitis versus air-fluid levels related to intubation.. . Chest CT 01/08/18 00:00 CONCLUSION: 1. Increasing airspace disease especially in both upper lobes. 2. Persistent dense consolidation in the lower lobes without significant improvement. 3. Increasing right pleural effusion. Chest X-Ray 01/20/18 00:00 CONCLUSION: Small pleural-based opacity on the right likely representing a small volume of pleural fluid. No other abnormality is identified. Abdomen X-Ray 01/20/18 05:00 CONCLUSION: Feeding tube distal tip is either in the first portion of the duodenum or pylorus region of the stomach. Physical Exam: PHYSICAL EXAMINATION: Limited by patient being on Rotobed. GENERAL: On the ventilator. Unresponsive. HEENT: Oropharynx intubated. LUNGS: Breath sounds are diminished.. HEART: Regular S1, S2, without murmurs, rubs or gallops. ABDOMEN: Unable to assess because of rotator bed. EXTREMITIES: No clubbing or cyanosis or edema. No embolic lesions visible. SKIN: No diffuse rash. NEUROLOGIC: Unable to assess. PSYCHIATRIC: Unable to assess. Assessment and Plan - Plan IMPRESSION: 1. Pneumonia. 2. Bacteremia due to Staphylococcus coag negative. Repeat blood cultures have no growth. This possibly could be contamination. 3. Acute respiratory failure. 4. Intravenous drug use. 5. Probable aspiration. Chest x-ray shows improved aeration. RECOMMENDATIONS: 1. Continue piperacillin/tazobactam. 2. Monitor temperature. 3. Monitor clinical status. I will be off 01/21/18 - 01/25/18. Other ID MD covering in my absence.
[2018-01-20 15:06] LABS: ABG Base Excess 8.8 mmol/L (-2-2); ABG PCO2 45 mmHg (38-42); ABG PO2 119 mmHg (61-120)
[2018-01-20] MEDS: Potassium Chloride 25 MEQ Effervescent Tablet PO PRN (16:58)
[2018-01-20] MEDS ORDERED: Albumin Human 5% Inj 500 ML IV.SIG ONE (21:13)
[2018-01-20 23:59] LABS: Anion Gap 6 meq/L (5-15); Blood Urea Nitrogen 21 mg/dL (7-18); Calcium 8.3 mg/dL (8.5-10.1); Carbon Dioxide 33.2 meq/L (21.0-32.0); Chloride 102 meq/L (98-107); Glomerular Filtration Rate Greater Than 89 mL/min (>89); Glucose,Random 109 mg/dL (74-106); Phosphorus 4.5 mg/dL (2.5-4.9); Potassium 3.4 meq/L (3.5-5.1); Sodium 141 meq/L (136-145)
[2018-01-21] MEDS: Oral Hygiene Kit OROPHARYNG SCH ×4 (00:26→16:33)
[2018-01-21] MEDS: Insulin NovoLOG Aspart Correctional Sugar Inj SQ SCH ×4 (00:26→17:43)
[2018-01-21] MEDS: Potassium Chloride 25 MEQ Effervescent Tablet PO PRN (00:35)
[2018-01-21] MEDS: Propofol 1000 mg/100 ml Inj 1,000 MG/100 ML BOTTLE IV.CONT PRN ×6 (01:21→21:38)
[2018-01-21] MEDS: Cisatracurium Inj 100 MG in Sodium Chlor 0.9% Inj 240 ML IV.CONT PRN ×6 (01:47→22:30)
[2018-01-21] MEDS: chlordiazePOXIDE 25 MG Capsule PO SCH ×2 (02:08→15:32)
[2018-01-21] MEDS: Methadone 10 MG Tablet PO SCH ×2 (02:08→14:29)
[2018-01-21] MEDS: Piperacil/Tazo 4.5 GM Premix 4.5 GM/100 ML BAG IV.SIG SCH ×4 (04:25→22:01)
[2018-01-21 05:35] LABS: Hematocrit 32.8 % (39.0-51.0); Hemoglobin 11.1 gm/dL (13.0-17.0); Mean Corpuscular HGB Conc 33.8 % (32.0-36.0); Mean Corpuscular Hemoglobin 32.5 pg (27.0-34.0); Mean Platelet Volume 8.6 fL (7.0-11.0); Platelet Count 477 th/mm3 (150-450); Red Blood Count 3.42 mil/mm3 (4.50-5.90); Red Cell Distribution Width 13.3 % (11.6-17.2); White Blood Count 6.1 th/mm3 (4.0-11.0)
[2018-01-21 05:36] LABS: ABG Base Excess 5.6 mmol/L (-2-2); ABG PCO2 50 mmHg (38-42); ABG PO2 154 mmHg (61-120)
[2018-01-21 05:57] LABS: Anion Gap 8 meq/L (5-15); Blood Urea Nitrogen 19 mg/dL (7-18); Calcium 8.8 mg/dL (8.5-10.1); Carbon Dioxide 29.3 meq/L (21.0-32.0); Chloride 103 meq/L (98-107); Glomerular Filtration Rate Greater Than 89 mL/min (>89); Glucose,Random 106 mg/dL (74-106); Potassium 3.5 meq/L (3.5-5.1); Sodium 140 meq/L (136-145)
[2018-01-21] MEDS: Potassium Chlor 40 mEq Premix 40 MEQ/100 ML PIGGYBACK IV.SIG PRN ×3 (05:59→18:31)
--- NOTE | 2018-01-21 07:47 | XR ---
EXAM DATE: 01/21/2018 7:44 AM EST AGE/SEX: 37 years / Male INDICATIONS: Respiratory disease CLINICAL DATA: This is the patient's subsequent encounter. Patient reports that signs and symptoms h ave been present for 4 - 6 days and indicates a pain score of Nonresponsive. MEDICAL/SURGICAL HISTORY: None. Smoker. IV drug user. None. COMPARISON: [facility] – [place], CHEST 1V SINGLE AP, 01/20/2018. . FINDINGS: Portable AP view of the chest demonstrates a normal-sized cardiac silhouette. ETT, nasogastric tube, feeding tube, and right IJ line are present and EKG lines overlie the patient. There is stable elevat ion of the right hemidiaphragm with small right pleural-based opacity. No airspace consolidation or p neumothorax is identified. The bones and soft tissues demonstrate no acute abnormality. CONCLUSION: Stable chest x-ray with small right pleural-based opacity which could represent a small volume of ple ural fluid. Electronically signed by: Yo Patricia MD 01/21/2018 7:46 AM EST
[2018-01-21] MEDS: Chlorhexidine 0.12% Oral Kit 15 ML UDC OROPHARYNG SCH ×2 (07:49→20:33)
[2018-01-21 08:16] LABS: ABG Base Excess 4.7 mmol/L (-2-2); ABG PCO2 60 mmHg (38-42); ABG PO2 76 mmHg (61-120)
[2018-01-21] MEDS ORDERED: Pharmacy Ordered Lab Info OTHER ONE (08:45)
[2018-01-21] MEDS: Senna/Docusate Sodium 8.6/50 MG Tablet PO SCH ×2 (08:56→20:33)
[2018-01-21] MEDS: Famotidine PF Inj 20 MG/2 ML Vial IV.PUSH SCH ×2 (08:56→20:33)
[2018-01-21] MEDS: Enoxaparin Inj 40 MG/0.4 ML Syringe SQ SCH (08:56)
[2018-01-21 09:01] LABS: Eosinophils 9 % (0-4); Monocytes 20 % (0-8); Myelocytes 3 % (0-0)
[2018-01-21 09:02] LABS: Lymphocytes 20 % (9-44); Platelet Morphology Normal (Normal); RBC Morphology Normal (Normal)
[2018-01-21] MEDS: Beneprotein Powder Packet G-TUBE SCH ×4 (11:17→18:00)
[2018-01-21] MEDS: Midazolam 100 MG/100 ML Inj 100 MG/100 ML BAG IV.CONT PRN (13:29)
[2018-01-21] MEDS: fentaNYL 10 mcg/mL Premix Drip 2,500 MCG/250 ML BAG IV.SIG PRN (13:56)
--- NOTE | 2018-01-21 17:02 | P.PNCC ---
Subjective Subjective Remarks/Hospital Course: 37-year-old male who is brought to [facility] emergency department after friends contacted [facility] due to decreased mental status with suspected heroin overdose. He had used heroin earlier in the evening. [facility] reportedly found him laying in emesis with a thready pulse. They gave him sequential doses of Narcan to a total of 2.4 mg IV at which point he became more awake and alert. He then had multiple episodes of vomiting in route. NG tube was placed by the paramedics and they aspirated gastric contents and then removed s NG prior to arrival. His room air sats were reportedly 84% and he was placed on NR. Patient told Dr. Lovett that this was his first time using heroin and that he injected it. CXR demonstrated RLL opacity. He was started on Unasyn for aspiration pneumonia and given nebs. He eventually was intubated due to hypoxia with sats in high 80s despite nonrebreather. [facility] consulted for admission. 01/06: Remains sedated and intubated, requires PEEP 12 and FiO2 70%, will try to wean these today if tolerated. 01/07: Agitated overnight and this morning, 2 episodes where the patient bit down on ETT, desaturated, and became unstable. Not tolerating pressure support trials. 01/08: Remains sedated, orally intubated on mechanical ventilation. PEEP remains at +12. CT chest done today shows worsening consolidations. Pleural effusion. 01/09: Remains critically ill with severe bilateral lower lobe consolidated pneumonias. Requiring markedly elevated mean airway pressure still. Patient is nutritionally depleted and not responding well to our aggressive medical treatment. 01/10: Continued requirements for markedly elevated fractional inspiratory oxygen concentration. Continued dense consolidation in both lower lobes PEEP reduced to avoid overexpansion of upper lobes. 01/11: Converted to airway pressure release ventilation because of inability to oxygenate adequately. We will probably have to add Flolan. Lengthy discussion with family about the severity of his respiratory problems and pneumonia. 01/12: Some progress but remains with high A-aO2 gradient. ET tube above clavicles; repositioned. Copious foul secretions. High requirement requirements for analgesia and sedation due to alcohol history. Will continue methadone and start scheduled Librium in an attempt to lower the intravenous requirements. 01/13: Remains sedated, orally intubated on mechanical ventilation. 01/14: Remains sedated, orally intubated on mechanical ventilation. Remains on APRV mode. On inhaled Flolan. 01/15: Remains sedated, intubated on AP RV mode mechanical ventilation. Inhaled Flolan titrated down to 30 ng/kg/min. Placed on rotarest bed yesterday. Starting Lasix to mobilize fluid in view of positive fluid balance. 01/16: Dense consolidation right lower lobe causing severe shunting and hypoxemia. He will likely require pronating to drain the basilar lower lobes. Patient remains critically ill with an unrelenting bilateral pneumonia proving refractory to our best antibiotic and ventilatory interventions. 01/17: Persistent shunting through consolidated right lower lobe is producing profound hypoxemia. Presently requiring roto-rest bed and markedly elevated mean airway pressures on mechanical ventilation. Sputum obtained during alveolar lavage of the right lower lobe yesterday is still pending. Patient remains critically ill and generally edematous. 01/18: Not progressing on Roto-Rest bed. Remains on 65% FiO2, inhaled Flolan, AP RV mode mechanical ventilation. We will attempt to place on prone ventilation after neuromuscular blockade and switching to pressure control inverse ratio mode mechanical ventilation. Also placing Dobbhoff to see if he tolerates tube feeds better and will be placing central line 01/19: Placed on prone ventilation on 01/19 after switching to PC/AC PIP+18, PEEP+ 15, Rate 18, I :E 3.5:1, FiO2 65%. FiO2 requirement down to 40% with proning. Remains on inhaled flolan. On neuromuscular blockade. 01/20: Continues on prone ventilation. Flolan being titrated down. Chest x-ray showed significant improvement in aeration bilaterally. 01/21: Remains on prone ventilation. On sedation and neuromuscular blockade. Flolan off since yesterday. O2 sats dropped on attempting to titrate PEEP below 14. Remains on 45-50% FiO2, rate 18, I:E ratio 1.5 :1 Objective Vital Signs / I&O: Vital Signs 01/20/18 17:00 01/20/18 17:27 01/20/18 18:00 Temperature Pulse Rate 78 88 Respiratory Rate 16 Blood Pressure 110/65 Pulse Oximetry 96 94 L 94 L 01/20/18 19:00 01/20/18 20:00 01/20/18 20:29 Temperature 98.6 F Pulse Rate 81 81 Respiratory Rate 16 Blood Pressure Pulse Oximetry 95 97 97 01/20/18 20:35 01/20/18 20:37 01/20/18 20:46 Temperature Pulse Rate 79 79 78 Respiratory Rate Blood Pressure 98/56 L 134/81 127/76 Pulse Oximetry 97 96 96 01/20/18 21:00 01/20/18 22:00 01/20/18 22:32 Temperature Pulse Rate 82 81 82 Respiratory Rate Blood Pressure 117/66 124/75 Pulse Oximetry 96 96 96 01/20/18 23:00 01/21/18 00:00 01/21/18 01:00 Temperature 98.6 F Pulse Rate 76 76 81 Respiratory Rate 16 Blood Pressure 112/55 L Pulse Oximetry 96 97 96 01/21/18 01:22 01/21/18 02:00 01/21/18 03:00 Temperature Pulse Rate 76 74 Respiratory Rate 16 16 16 Blood Pressure 101/56 L Pulse Oximetry 96 96 96 01/21/18 04:00 01/21/18 04:52 01/21/18 05:00 Temperature 98 F Pulse Rate 72 70 Respiratory Rate 16 16 16 Blood Pressure 111/67 Pulse Oximetry 96 96 97 01/21/18 06:00 01/21/18 07:00 01/21/18 08:00 Temperature 97.5 F L Pulse Rate 75 77 79 Respiratory Rate 16 16 16 Blood Pressure 105/55 L Pulse Oximetry 96 94 L 94 L 01/21/18 08:12 01/21/18 08:51 01/21/18 09:00 Temperature Pulse Rate 93 H Respiratory Rate 17 18 Blood Pressure Pulse Oximetry 93 L 95 96 01/21/18 10:00 01/21/18 11:00 01/21/18 12:00 Temperature 97.3 F L 97.7 F 97.9 F Pulse Rate 84 79 78 Respiratory Rate 18 18 18 Blood Pressure Pulse Oximetry 98 98 98 01/21/18 12:08 01/21/18 13:00 01/21/18 14:00 Temperature 98.2 F 98.2 F Pulse Rate 82 88 Respiratory Rate 19 18 18 Blood Pressure Pulse Oximetry 98 97 96 01/21/18 15:00 01/21/18 15:19 01/21/18 16:00 Temperature 98.8 F 98.6 F Pulse Rate 97 H 96 H Respiratory Rate 18 18 18 Blood Pressure Pulse Oximetry 96 95 96 Intake & Output 01/20/18 01/21/18 01/21/18 18:59 06:59 18:59 Intake Total 2602 / 2602 2531 / 2531 1250 / 1250 Output Total 3125 / 3125 2350 / 2350 200 / 200 Balance -523 / -523 181 / 181 1050 / 1050 Weight 72.6 kg Intake: IV 0 / 2070 2050 / 0 1250 / 1250 Nimbex Inj 100 MG In NS Inj 240 750 / 750 700 / 700 500 / 500 ML @ 1 MCG/KG/MIN 14.82 mls/hr IV.CONT TITRATE PRN Rx#: [id number] D5W/Normal Saline Inj 1,000 ML 420 / 420 @ 42 mls/hr IV.CONT .[id number] [facility] Rx#:[id number] Versed Inj 100 mg In 100 ml @ 2 100 / 100 100 / 100 100 / 100 MG/HR 2 mls/hr IV.CONT TITRATE PRN Rx#:[id number] Diprivan 1000 mg/100 ml Inj 1, 300 / 300 300 / 300 200 / 200 000 mg In 100 ml @ 5 MCG/KG/MIN 2.585 mls/hr IV.CONT TITRATE PRN Rx#:[id number] Alburx 5% Inj 500 ML @ 250 mls/ 500 / 500 hr IV.SIG NOW ONE Rx#:[id number] Zosyn 4.5 GM Premix 4.5 gm In 200 / 200 200 / 200 100 / 100 100 ml @ 200 mls/hr IV.SIG Q6H [facility] Rx#:[id number] KCl 40 mEq Premix Inj 40 meq In 200 / 200 100 / 100 100 ml @ 25 mls/hr IV.SIG UNSCH PRN Rx#:[id number] fentaNYL 10 mcg/mL Premix Drip 250 / 250 250 / 250 2,500 mcg In 250 ml @ 50 MCG/HR 5 mls/hr IV.SIG TITRATE PRN Rx #:[id number] Tube Feeding 292 / 292 361 / 361 Tube Irrigant 240 / 240 120 / 120 Output: Urine Amount (Catheter) 3025 / 3025 2250 / 2250 Indwelling Urethral Catheter 3025 / 3025 2250 / 2250 Gastric Drainage 100 / 100 100 / 100 200 / 200 Orogastric Tube 100 / 100 100 / 100 200 / 200 Other: Date of Last Bowel Movement 01/20/18 01/20/18 01/20/18 # Incontinent Bowel Movements 1 Result Diagrams: 01/21/18 05:15 01/21/18 14:18 Imaging: Impressions Abdomen X-Ray 01/19/18 16:00 CONCLUSION: Nasogastric tube tip is in the upper stomach and Dobbhoff feeding tube tip is in the mid stomach. Chest X-Ray 01/20/18 00:00 CONCLUSION: Small pleural-based opacity on the right likely representing a small volume of pleural fluid. No other abnormality is identified. Abdomen X-Ray 01/20/18 05:00 CONCLUSION: Feeding tube distal tip is either in the first portion of the duodenum or pylorus region of the stomach. Chest X-Ray 01/21/18 07:09 CONCLUSION: Stable chest x-ray with small right pleural-based opacity which could represent a small volume of pleural fluid. Objective Remarks: GEN: Intubated and sedated, on neuromuscular blockade HEENT: Reactive pupils 2mm, Trachea midline, orotracheal intubation CARDIO: S1-S2 regular, no murmur. Neck: Right IJ central line in place PULM: Orally intubated on mechanical ventilation, good air entry bilaterally, scattered rhonchi, no wheezing ABD/GI: Soft, non-distended. No guarding, bowel sounds are active. No tenderness. EXT/MSK: 2+ peripheral edema, warm, adequately perfused. SKIN: No rashes or lesions. Well perfused. Skin blistering over abdominal wall. NEURO: Sedated, orally intubated on mechanical ventilation. On neuromuscular blockade Assessment and Plan - Problem List (1) Heroin overdose Code(s): T40.1X1A - Poisoning by heroin, accidental (unintentional), initial encounter Status: Acute (2) Polysubstance abuse Code(s): F19.10 - Other psychoactive substance abuse, uncomplicated Status: Chronic (3) Cocaine abuse Code(s): F14.10 - Cocaine abuse, uncomplicated Status: Acute (4) Elevated ETOH level Code(s): R78.0 - Finding of alcohol in blood Status: Acute (5) Marijuana abuse Code(s): F12.10 - Cannabis abuse, uncomplicated Status: Acute (6) TORREY (acute kidney injury) Code(s): N17.9 - Acute kidney failure, unspecified Status: Acute (7) Severe sepsis Code(s): A41.9 - Sepsis, unspecified organism; R65.20 - Severe sepsis without septic shock Status: Acute (8) Acute respiratory failure with hypoxia Code(s): J96.01 - Acute respiratory failure with hypoxia Status: Acute (9) Aspiration pneumonia Code(s): J69.0 - Pneumonitis due to inhalation of food and vomit Status: Acute (10) Vomiting Code(s): R11.10 - Vomiting, unspecified Status: Acute (11) Hyperglycemia Code(s): R73.9 - Hyperglycemia, unspecified Status: Acute (12) Protein-calorie malnutrition, moderate Code(s): E44.0 - Moderate protein-calorie malnutrition Status: Acute - Assessment and Plan Plan: NEURO: Heroin overdose Polysubstance abuse (marijuana, opiate, cocaine) Propofol/ versed/ fentanyl for sedation. On Nimbex for neuromuscular blockade Thiamine/multivitamin supplementation CT head negative Tolerance to narcotic analgesia implies chronic narcotic use On methadone to wean fentanyl. Continue librium 25 mg p.o. twice daily RESP: Acute hypoxemic respiratory failure Acute aspiration pneumonia Intubated in ED 01/05 due to hypoxia. inhaled flolan being titrated down and discontinued on 01/21 Switched from APRV to pressure control mode mechanical ventilation inverse ratio with neuromuscular blockade and prone ventilation on 01/18 with decrease in FiO2 requirement. Inspiratory pressure to keep tidal volume 450-500 cc, rate 18 peep +14, decreasing I time gradually, FiO2 40-50%% DuoNeb every 6 hours. Albuterol every [address] chest with dense bilateral basilar consolidations and small right pleural effusion Considerable sputum withdrawn from right lower lobe on 01/16 during bronchoscopy , culture results normal alistair. Significant improvement in lung aeration following prone ventilation. CV: Telemetry and BP monitoring in ICU Being diuresed to mobilize fluid GI: Continue tube feedings via dobhoff, advance to goal as tolerated. Having high residuals. On Reglan IV. Decrease fentanyl gtt as also on methadone. Zofran prn. FEN/RENAL: TORREY - suspect pre-renal secondary to overdose and sepsis, improved CPK is normal Urine output adequate Lasix 40 mg IV Q6H to mobilize fluid on 01/19. Added Diamox for 01/20 and 01/21 for metabolic alkalosis secondary to diuresis with Lasix. ID: Severe Sepsis secondary to aspiration pneumonia MRSA swab negative Blood cultures from 01/05 growing staph epidermidis in both bottles, repeat cultures sent 01/06 no growth at 1 day Consulted ID for antibiotic management in view of worsening respiratory status/ sepsis. On zosyn IV. Vancomycin discontinued Organism eludes us, sputum culture from 01/16 pending result HEME: No acute hematologic issues aside from leukocytosis.. Coags are normal. ENDO: Acute hyperglycemia Monitor bedside glucose every 6 hours and administer low-dose insulin sliding scale as indicated. Poor diabetic control has been an intermittent problem PROPH: -PPI -SCDs/ lovenox ACCESS: RIJ central line placed 01/18 OVERALL: This patient remains critically ill requiring quite high levels of ventilator support for aspiration pneumonia and heroin drug overdose. His initial response to aggressive medical therapy has been poor, undoubtedly related to chronic debilitation and poor baseline nutritional status. His long- term prognosis is guarded, largely due to concerns about his nutritional and immune status. He initially failed bilevel ventilation but did more poorly on conventional. Now on prone ventilation. He requires constant manipulation of the assessment of his arterial blood gases, fluid removal, and antibiotic adjustment. He remains very unstable from a respiratory standpoint. Critical care time 45 minutes aside from procedures.
[2018-01-22] MEDS: Midazolam 100 MG/100 ML Inj 100 MG/100 ML BAG IV.CONT PRN ×3 (00:39→18:07)
[2018-01-22] MEDS: Oral Hygiene Kit OROPHARYNG SCH ×5 (00:40→23:08)
[2018-01-22] MEDS: Insulin NovoLOG Aspart Correctional Sugar Inj SQ SCH ×5 (00:40→23:53)
[2018-01-22] MEDS: Cisatracurium Inj 100 MG in Sodium Chlor 0.9% Inj 240 ML IV.CONT PRN ×9 (01:19→22:50)
[2018-01-22] MEDS: Propofol 1000 mg/100 ml Inj 1,000 MG/100 ML BOTTLE IV.CONT PRN ×7 (01:38→23:55)
[2018-01-22] MEDS: chlordiazePOXIDE 25 MG Capsule PO SCH (02:33)
[2018-01-22] MEDS: Methadone 10 MG Tablet PO SCH ×2 (02:33→14:06)
[2018-01-22] MEDS: Piperacil/Tazo 4.5 GM Premix 4.5 GM/100 ML BAG IV.SIG SCH ×4 (04:41→22:35)
[2018-01-22 05:48] LABS: ABG Base Excess 4.6 mmol/L (-2-2); ABG PCO2 75 mmHg (38-42); ABG PO2 258 mmHg (61-120)
[2018-01-22 06:06] LABS: Hematocrit 35.8 % (39.0-51.0); Hemoglobin 12.3 gm/dL (13.0-17.0); Mean Corpuscular HGB Conc 34.3 % (32.0-36.0); Mean Corpuscular Hemoglobin 32.7 pg (27.0-34.0); Mean Corpuscular Volume 95.5 fL (80.0-100.0); Mean Platelet Volume 8.5 fL (7.0-11.0); Platelet Count 620 th/mm3 (150-450); Red Blood Count 3.75 mil/mm3 (4.50-5.90); Red Cell Distribution Width 13.4 % (11.6-17.2); White Blood Count 13.3 th/mm3 (4.0-11.0)
[2018-01-22 06:26] LABS: Alanine Aminotransferase 36 U/L (12-78)
[2018-01-22 06:28] LABS: Alkaline Phosphatase 146 U/L (45-117); Total Protein 7.8 g/dL (6.4-8.2)
[2018-01-22 06:31] LABS: Albumin 2.5 g/dL (3.4-5.0); Anion Gap 4 meq/L (5-15); Aspartate Aminotransferase 58 U/L (15-37); Blood Urea Nitrogen 23 mg/dL (7-18); Calcium 9.1 mg/dL (8.5-10.1); Carbon Dioxide 33.6 meq/L (21.0-32.0); Chloride 98 meq/L (98-107); Glomerular Filtration Rate Greater Than 89 mL/min (>89); Glucose,Random 127 mg/dL (74-106); Sodium 136 meq/L (136-145)
[2018-01-22 06:32] LABS: Potassium 4.7 meq/L (3.5-5.1)
[2018-01-22] MEDS: Chlorhexidine 0.12% Oral Kit 15 ML UDC OROPHARYNG SCH ×2 (08:35→21:06)
[2018-01-22] MEDS: Beneprotein Powder Packet G-TUBE SCH ×3 (08:36→17:23)
[2018-01-22] MEDS: Enoxaparin Inj 40 MG/0.4 ML Syringe SQ SCH (08:36)
[2018-01-22] MEDS: Famotidine PF Inj 20 MG/2 ML Vial IV.PUSH SCH ×2 (08:36→21:06)
[2018-01-22] MEDS: Senna/Docusate Sodium 8.6/50 MG Tablet PO SCH ×2 (08:36→21:06)
[2018-01-22 08:42] LABS: ABG Base Excess 4.5 mmol/L (-2-2); ABG PCO2 78 mmHg (38-42); ABG PO2 130 mmHg (61-120)
--- NOTE | 2018-01-22 08:45 | XR ---
EXAM DATE: 01/22/2018 8:39 AM EST AGE/SEX: 37 years / Male INDICATIONS: Respiratory Disease. CLINICAL DATA: This is the patient's subsequent encounter. Patient reports that signs and symptoms h ave been present for 3 weeks and indicates a pain score of Nonresponsive. MEDICAL/SURGICAL HISTORY: . Smoker. IV drug user. None. COMPARISON: C, CHEST 1V SINGLE AP, 01/21/2018. . FINDINGS: 2 portable AP views of the chest demonstrate a normal-sized cardiac silhouette. ETT, NG tube, feeding tube, and right IJ line remain present. Multiple EKG lines overlie the patient. There is chronic sandor vation of the right hemidiaphragm. No effusion, consolidation, or pneumothorax is identified. Bones a nd soft tissues demonstrate no acute abnormality. CONCLUSION: No acute abnormality is identified. The pleural-based opacity on the right documented on yesterday's examination is no longer visualized. Electronically signed by: Yo Patricia MD 01/22/2018 8:43 AM EST
[2018-01-22] MEDS: fentaNYL 10 mcg/mL Premix Drip 2,500 MCG/250 ML BAG IV.SIG PRN (10:18)
--- NOTE | 2018-01-22 11:58 | P.PNCC ---
Subjective Subjective Remarks/Hospital Course: 37-year-old male who is brought to [facility] emergency department after friends contacted [facility] due to decreased mental status with suspected heroin overdose. He had used heroin earlier in the evening. [facility] reportedly found him laying in emesis with a thready pulse. They gave him sequential doses of Narcan to a total of 2.4 mg IV at which point he became more awake and alert. He then had multiple episodes of vomiting in route. NG tube was placed by the paramedics and they aspirated gastric contents and then removed s NG prior to arrival. His room air sats were reportedly 84% and he was placed on NR. Patient told Dr. Lovett that this was his first time using heroin and that he injected it. CXR demonstrated RLL opacity. He was started on Unasyn for aspiration pneumonia and given nebs. He eventually was intubated due to hypoxia with sats in high 80s despite nonrebreather. Sand [employer]er consulted for admission. 01/06: Remains sedated and intubated, requires PEEP 12 and FiO2 70%, will try to wean these today if tolerated. 01/07: Agitated overnight and this morning, 2 episodes where the patient bit down on ETT, desaturated, and became unstable. Not tolerating pressure support trials. 01/08: Remains sedated, orally intubated on mechanical ventilation. PEEP remains at +12. CT chest done today shows worsening consolidations. Pleural effusion. 01/09: Remains critically ill with severe bilateral lower lobe consolidated pneumonias. Requiring markedly elevated mean airway pressure still. Patient is nutritionally depleted and not responding well to our aggressive medical treatment. 01/10: Continued requirements for markedly elevated fractional inspiratory oxygen concentration. Continued dense consolidation in both lower lobes PEEP reduced to avoid overexpansion of upper lobes. 01/11: Converted to airway pressure release ventilation because of inability to oxygenate adequately. We will probably have to add Flolan. Lengthy discussion with family about the severity of his respiratory problems and pneumonia. 01/12: Some progress but remains with high A-aO2 gradient. ET tube above clavicles; repositioned. Copious foul secretions. High requirement requirements for analgesia and sedation due to alcohol history. Will continue methadone and start scheduled Librium in an attempt to lower the intravenous requirements. 01/13: Remains sedated, orally intubated on mechanical ventilation. 01/14: Remains sedated, orally intubated on mechanical ventilation. Remains on APRV mode. On inhaled Flolan. 01/15: Remains sedated, intubated on AP RV mode mechanical ventilation. Inhaled Flolan titrated down to 30 ng/kg/min. Placed on rotarest bed yesterday. Starting Lasix to mobilize fluid in view of positive fluid balance. 01/16: Dense consolidation right lower lobe causing severe shunting and hypoxemia. He will likely require pronating to drain the basilar lower lobes. Patient remains critically ill with an unrelenting bilateral pneumonia proving refractory to our best antibiotic and ventilatory interventions. 01/17: Persistent shunting through consolidated right lower lobe is producing profound hypoxemia. Presently requiring roto-rest bed and markedly elevated mean airway pressures on mechanical ventilation. Sputum obtained during alveolar lavage of the right lower lobe yesterday is still pending. Patient remains critically ill and generally edematous. 01/18: Not progressing on Roto-Rest bed. Remains on 65% FiO2, inhaled Flolan, AP RV mode mechanical ventilation. We will attempt to place on prone ventilation after neuromuscular blockade and switching to pressure control inverse ratio mode mechanical ventilation. Also placing Dobbhoff to see if he tolerates tube feeds better and will be placing central line 01/19: Placed on prone ventilation on 01/19 after switching to PC/AC PIP+18, PEEP+ 15, Rate 18, I :E 3.5:1, FiO2 65%. FiO2 requirement down to 40% with proning. Remains on inhaled flolan. On neuromuscular blockade. 01/20: Continues on prone ventilation. Flolan being titrated down. Chest x-ray showed significant improvement in aeration bilaterally. 01/21: Remains on prone ventilation. On sedation and neuromuscular blockade. Flolan off since yesterday. O2 sats dropped on attempting to titrate PEEP below 14. Remains on 45-50% FiO2, rate 18, I:E ratio 1.5 :1 01/22: Sedated, orally intubated on mechanical ventilation. Remains on prone ventilation. PCO2 climbing. Changed to PRBC mode, PEEP +12. Increased rate to 24 and tidal volume to 500 this morning in view of elevated PCO2 on ABG. Chest x-ray is essentially clear bilaterally. Obtaining lower extremity venous Dopplers to evaluate for DVT and a 2D echo. Objective Vital Signs / I&O: Vital Signs 01/21/18 12:00 01/21/18 12:08 01/21/18 13:00 Temperature 97.9 F 98.2 F Pulse Rate 78 82 Respiratory Rate 18 19 18 Pulse Oximetry 98 98 97 01/21/18 14:00 01/21/18 15:00 01/21/18 15:19 Temperature 98.2 F 98.8 F Pulse Rate 88 97 H Respiratory Rate 18 18 18 Pulse Oximetry 96 96 95 01/21/18 16:00 01/21/18 17:00 01/21/18 18:00 Temperature 98.6 F 98.8 F 99.1 F Pulse Rate 96 H 93 H 103 H Respiratory Rate 18 18 18 Pulse Oximetry 96 96 97 01/21/18 19:00 01/21/18 19:52 01/21/18 20:00 Temperature 99.0 F Pulse Rate 104 H 106 H Respiratory Rate 18 18 18 Pulse Oximetry 97 96 96 01/21/18 21:00 01/21/18 22:00 01/21/18 23:00 Temperature 98.6 F 99.3 F 100.2 F H Pulse Rate 112 H 110 H 118 H Respiratory Rate 18 18 18 Pulse Oximetry 97 100 96 01/21/18 23:25 01/22/18 00:00 01/22/18 01:00 Temperature 99.9 F H 99.3 F Pulse Rate 117 H 117 H Respiratory Rate 18 18 18 Pulse Oximetry 96 97 96 01/22/18 02:00 01/22/18 03:00 01/22/18 04:00 Temperature 99.0 F 98.6 F 98.4 F Pulse Rate 116 H 112 H 107 H Respiratory Rate 18 18 18 Pulse Oximetry 95 98 96 01/22/18 04:22 01/22/18 05:00 01/22/18 06:00 Temperature 98.2 F 98.1 F Pulse Rate 104 H 105 H Respiratory Rate 18 18 18 Pulse Oximetry 96 96 96 01/22/18 07:00 01/22/18 08:00 01/22/18 08:29 Temperature 98.1 F 98.1 F Pulse Rate 108 H 105 H Respiratory Rate 22 Pulse Oximetry 95 95 96 01/22/18 09:00 01/22/18 10:00 01/22/18 11:00 Temperature 97.7 F 97.9 F 97.9 F Pulse Rate 99 H 97 H 92 H Respiratory Rate Pulse Oximetry 96 97 100 01/22/18 11:32 Temperature Pulse Rate Respiratory Rate 27 H Pulse Oximetry Intake & Output 01/21/18 01/22/18 01/22/18 18:59 06:59 18:59 Intake Total 2654 / 2654 1918 / 1918 800 / 800 Output Total 3825 / 3825 4000 / 4000 Balance -1171 / -1171 -2082 / -2082 800 / 800 Weight 75.2 kg Intake: IV 1800 / 1800 1700 / 1700 800 / 800 Nimbex Inj 100 MG In NS Inj 240 750 / 750 1000 / 1000 500 / 500 ML @ 1 MCG/KG/MIN 14.82 mls/hr IV.CONT TITRATE PRN Rx#: [id number] Versed Inj 100 mg In 100 ml @ 2 100 / 100 100 / 100 100 / 100 MG/HR 2 mls/hr IV.CONT TITRATE PRN Rx#:[id number] Diprivan 1000 mg/100 ml Inj 1, 300 / 300 300 / 300 100 / 100 000 mg In 100 ml @ 5 MCG/KG/MIN 2.585 mls/hr IV.CONT TITRATE PRN Rx#:[id number] Zosyn 4.5 GM Premix 4.5 gm In 200 / 200 200 / 200 100 / 100 100 ml @ 200 mls/hr IV.SIG Q6H VU Rx#:[id number] KCl 40 mEq Premix Inj 40 meq In 200 / 200 100 / 100 100 ml @ 25 mls/hr IV.SIG UNSCH PRN Rx#:[id number] fentaNYL 10 mcg/mL Premix Drip 250 / 250 2,500 mcg In 250 ml @ 50 MCG/HR 5 mls/hr IV.SIG TITRATE PRN Rx #:[id number] Tube Feeding 394 / 394 158 / 158 Tube Irrigant 60 / 60 Water Bolus Amount 460 / 460 Output: Stool 0 / 0 100 / 100 Urine Amount (Catheter) 3625 / 3625 3400 / 3400 Indwelling Urethral Catheter 3625 / 3625 3400 / 3400 Gastric Drainage 200 / 200 500 / 500 Orogastric Tube 200 / 200 500 / 500 Other: Date of Last Bowel Movement 01/20/18 01/22/18 01/22/18 Result Diagrams: 01/22/18 05:45 01/22/18 05:45 Imaging: Impressions Chest X-Ray 01/21/18 07:09 CONCLUSION: Stable chest x-ray with small right pleural-based opacity which could represent a small volume of pleural fluid. Chest X-Ray 01/22/18 07:38 CONCLUSION: No acute abnormality is identified. The pleural-based opacity on the right documented on yesterday's examination is no longer visualized. Objective Remarks: GEN: Intubated and sedated, on neuromuscular blockade HEENT: Reactive pupils 2mm, Trachea midline, orotracheal intubation CARDIO: S1-S2 regular, no murmur. Neck: Right IJ central line in place PULM: Orally intubated on mechanical ventilation, good air entry bilaterally, scattered rhonchi, no wheezing ABD/GI: Soft, non-distended. No guarding, bowel sounds are active. No tenderness. EXT/MSK: 2+ peripheral edema, warm, adequately perfused. SKIN: No rashes or lesions. Well perfused. Skin blistering over abdominal wall. NEURO: Sedated, orally intubated on mechanical ventilation. On neuromuscular blockade Assessment and Plan - Problem List (1) Heroin overdose Code(s): T40.1X1A - Poisoning by heroin, accidental (unintentional), initial encounter Status: Acute (2) Polysubstance abuse Code(s): F19.10 - Other psychoactive substance abuse, uncomplicated Status: Chronic (3) Cocaine abuse Code(s): F14.10 - Cocaine abuse, uncomplicated Status: Acute (4) Elevated ETOH level Code(s): R78.0 - Finding of alcohol in blood Status: Acute (5) Marijuana abuse Code(s): F12.10 - Cannabis abuse, uncomplicated Status: Acute (6) TORREY (acute kidney injury) Code(s): N17.9 - Acute kidney failure, unspecified Status: Acute (7) Severe sepsis Code(s): A41.9 - Sepsis, unspecified organism; R65.20 - Severe sepsis without septic shock Status: Acute (8) Acute respiratory failure with hypoxia Code(s): J96.01 - Acute respiratory failure with hypoxia Status: Acute (9) Aspiration pneumonia Code(s): J69.0 - Pneumonitis due to inhalation of food and vomit Status: Acute (10) Vomiting Code(s): R11.10 - Vomiting, unspecified Status: Acute (11) Hyperglycemia Code(s): R73.9 - Hyperglycemia, unspecified Status: Acute (12) Protein-calorie malnutrition, moderate Code(s): E44.0 - Moderate protein-calorie malnutrition Status: Acute - Assessment and Plan Plan: NEURO: Heroin overdose Polysubstance abuse (marijuana, opiate, cocaine) Propofol/ versed/ fentanyl for sedation. On Nimbex for neuromuscular blockade Thiamine/multivitamin supplementation CT head negative Tolerance to narcotic analgesia implies chronic narcotic use On methadone to wean fentanyl. Continue librium 25 mg p.o. twice daily RESP: Acute hypoxemic respiratory failure Acute aspiration pneumonia Intubated in ED 01/05 due to hypoxia. inhaled flolan discontinued on 01/21 Initially on AP RV mode which was switched to pressure control inverse ratio mechanical ventilation with Proning on 01/18. Changed to PRVC on 01/21 a.m. in view of elevated PCO2 to ensure adequate tidal volumes. PEEP +12, rate 22, FiO2 45%. I:E 1:1 DuoNeb every 6 hours. Albuterol every [address] chest with dense bilateral basilar consolidations and small right pleural effusion Considerable sputum withdrawn from right lower lobe on 01/16 during bronchoscopy , culture results normal alistair. Significant improvement in lung aeration following prone ventilation however now PCO2 climbing. CV: Telemetry and BP monitoring in ICU Being diuresed to mobilize fluid Check lower extremity venous Dopplers for DVTs and 2D echo to assess RV/LV function and for shunting. GI: Continue tube feedings via dobhoff, advance to goal as tolerated. Having high residuals. On Reglan IV. Decrease fentanyl gtt as also on methadone. Zofran prn. FEN/RENAL: TORREY - suspect pre-renal secondary to overdose and sepsis, improved CPK is normal Urine output adequate Lasix 40 mg IV Q6H to mobilize fluid on 01/19. Received Diamox on 01/20 and 01/21 for metabolic alkalosis secondary to diuresis with Lasix. ID: Severe Sepsis secondary to aspiration pneumonia MRSA swab negative Blood cultures from 01/05 growing staph epidermidis in both bottles, repeat cultures sent 01/06 no growth at 1 day Consulted ID for antibiotic management in view of worsening respiratory status/ sepsis. On zosyn IV. Vancomycin discontinued Organism eludes us, sputum culture from 01/16 pending result Will obtain akers cultures on 01/22 due to fever and leukocytosis. HEME: No acute hematologic issues aside from leukocytosis.. Coags are normal. ENDO: Acute hyperglycemia Monitor bedside glucose every 6 hours and administer low-dose insulin sliding scale as indicated. Poor diabetic control has been an intermittent problem PROPH: -PPI -SCDs/ lovenox ACCESS: RIJ central line placed 01/18 OVERALL: This patient remains critically ill requiring quite high levels of ventilator support for aspiration pneumonia and heroin drug overdose. His initial response to aggressive medical therapy has been poor, undoubtedly related to chronic debilitation and poor baseline nutritional status. His long- term prognosis is guarded, largely due to concerns about his nutritional and immune status. He initially failed bilevel ventilation but did more poorly on conventional. Now on prone ventilation. He requires constant manipulation of the assessment of his arterial blood gases, fluid removal, and antibiotic adjustment. He remains very unstable from a respiratory standpoint. Critical care time 45 minutes aside from procedures.
[2018-01-22 13:23] LABS: ABG Base Excess 7.2 mmol/L (-2-2); ABG PCO2 55 mmHg (38-42); ABG PO2 78 mmHg (61-120)
--- NOTE | 2018-01-22 14:38 | US ---
EXAM DATE: 01/22/2018 2:34 PM EST AGE/SEX: 37 years / Male INDICATIONS: Bilateral leg swelling. CLINICAL DATA: This is the patient's initial encounter. Patient reports that signs and symptoms have been present for 1 day and indicates a pain score of Nonresponsive. MEDICAL/SURGICAL HISTORY: . IV drug abuse/overdose. None. COMPARISON: No prior exams available for comparison. TECHNIQUE: Venous ultrasound of both lower extremities was performed from the inguinal ligament to t he proximal calf. Real-time, color Doppler and spectral tracing, compression and augmentation techni ques were used. FINDINGS: Right Leg: Normal compression of the deep venous system from the inguinal region to the proximal tyler f. No echogenic clot is seen. Normal response of the venous system to augmentation and respiration. Left Leg: Normal compression of the deep venous system from the inguinal region to the proximal calf . No echogenic clot is seen. Normal response of the venous system to augmentation and respiration. Other: None. CONCLUSION: No venous thrombosis is identified within either lower extremity. Electronically signed by: Yo Patricia MD 01/22/2018 2:36 PM EST
--- NOTE | 2018-01-22 14:38 | US ---
EXAM DATE: 01/22/2018 2:36 PM EST AGE/SEX: 37 years / Male INDICATIONS: Bilateral arm swelling. CLINICAL DATA: This is the patient's initial encounter. Patient reports that signs and symptoms have been present for 1 day and indicates a pain score of Nonresponsive. MEDICAL/SURGICAL HISTORY: . IV drug abuse/overdose. None. COMPARISON: No prior exams available for comparison. FINDINGS: Right Upper Extremity: The vessels are compressible and augmentation response is documented. No fill ing defects are seen. The flow is phasic with respiration. Left Upper Extremity: The vessels are compressible and augmentation response is documented. No filli ng defects are seen. The flow is phasic with respiration. Other: None. CONCLUSION: No venous thrombosis is identified within either upper extremity. Electronically signed by: Yo Patricia MD 01/22/2018 2:37 PM EST
--- NOTE | 2018-01-22 15:07 | P.CONGS ---
[facility] Consult Note Consult date: 01/22/18 Reason for consult: other (Ventilator dependent need tracheostomy) Narrative: CONSULTATION NOTE FOR SURGICAL ATTENDING, DR. KEHINDE IVEY Discussed with Dr. Milner critical care Patient on the ventilator aspiration pneumonitis needs tracheostomy Review of Systems unobtainable due to endotracheal tube, unobtainable due to mental condition, unobtainable due to mental status PMFSH - History History Provided By: Family Member, Medical Record - Medical / Surgical Hx Neg / Unobtainable Medical Problems Denied: Unable to Obtain - Medical History Medical History: Medical History (Last Reviewed 01/22/18 @ 15:03 by Kehinde Ivey MD) IVDU (intravenous drug user) Patient denies medical problems - Surgical History Surgical History: Surgical History (Last Reviewed 01/22/18 @ 15:03 by Kehinde Ivey MD) No history of previous surgery - Social History I have reviewed the patient's Social History: Yes - Tobacco History Second Hand Smoke Exposure: Yes Tobacco Use In Past 30 Days: Yes Smoking Status: Current every day smoker Tobacco Type: Cigarettes - Alcohol History How Often Do You Have a Drink Containing Alcohol: 4 or more times a week - Substance Use History Substance History: Active Abuse - Substance Use Type LSD, Mushrooms Status: Active Route Used: By Mouth, Inhalation, Intravenously Frequency: weekly Last Used: 6 days ago - Travel History Recent Travel in the [place] Within the Last 8 Weeks: Yes Recent Travel Out of the Country Within the Last 8 Weeks: No - Immunization History Tetanus Immunization: <5 Years Hx Influenza Vaccine This Season: No Medications and Allergies Active Medications: Active Medications Acetaminophen (Tylenol) 650 mg PO Q6H PRN PRN Reason: PAIN 1-10 AND/OR FEVER >101F Al Hydroxide/Mg Hydroxide (Milk Of Magnesia Liq) 30 ml PO Q12H PRN PRN Reason: Mild Constipation Last Admin: 01/18/18 03:36 Dose: 30 ml Albuterol (Albuterol Neb (Prn)) 2.5 mg NEB Q2HR NEB PRN PRN Reason: SHORTNESS OF BREATH/WHEEZING Last Admin: 01/15/18 00:15 Dose: 2.5 mg Bisacodyl (Dulcolax Supp) 10 mg RECTAL DAILY PRN PRN Reason: SEVERE CONSITIPATION Last Admin: 01/19/18 08:38 Dose: 10 mg Chlordiazepoxide (Librium) 25 mg PO DAILY [facility] Chlorhexidine Gluconate (Peridex 0.12% Oral Kit) 15 ml OROPHARYNG BID@0800, 2000 [facility] Last Admin: 01/22/18 08:35 Dose: 15 ml Dextrose (D50w Vial) 50 ml IV.PUSH UNSCH PRN PRN Reason: PER HYPOGLYCEMIA PROTOCOL Last Admin: 01/18/18 19:06 Dose: 50 ml Enoxaparin Sodium (Lovenox Inj) 40 mg SQ DAILY [facility] Last Admin: 01/22/18 08:36 Dose: 40 mg Famotidine (Pepcid Pf Inj) 20 mg IV.PUSH Q12HR [facility] Last Admin: 01/22/18 08:36 Dose: 20 mg Fentanyl Citrate (Fentanyl Inj) 50 mcg IV PUSH Q1H PRN PRN Reason: Pain scale 6-10, &/or sedation Last Admin: 01/13/18 23:37 Dose: 50 mcg Furosemide (Lasix Inj) 40 mg IV.PUSH Q6H [facility] Last Admin: 01/22/18 10:10 Dose: 40 mg Glucagon (Glucagon Inj) 1 mg OTHER PRN PRN PRN Reason: for Hypoglycemia Protocol Fentanyl (Fentanyl 10 Mcg/Ml Premix Drip) 2,500 mcg in 250 mls @ 5 mls/hr IV.SIG TITRATE PRN; Protocol PRN Reason: Per Protocol Last Admin: 01/22/18 10:18 Dose: 150 mcg/hr, 15 mls/hr Propofol (Diprivan 1000 Mg/100 Ml Inj) 1,000 mg in 100 mls @ 2.585 mls/hr IV.CONT TITRATE PRN; Protocol PRN Reason: Per Protocol Last Admin: 01/22/18 12:36 Dose: 50 mcg/kg/min, 25.86 mls/hr Magnesium Sulfate 4 gm/ Sodium (Chloride) 100 mls @ 50 mls/hr IV.SIG UNSCH PRN PRN Reason: For Magnesium 0.9 - 1.1 mg/dL Magnesium Sulfate 2 gm/ Sodium (Chloride) 100 mls @ 50 mls/hr IV.SIG UNSCH PRN PRN Reason: For Magnesium 1.2 - 1.6 mg/dL Potassium Chloride (Kcl 40 Meq Premix Inj) 40 meq in 100 mls @ 25 mls/hr IV.SIG Q2H PRN PRN Reason: For Potassium 2.8 - 3.2 mEq/L Last Infusion: 01/20/18 11:00 Dose: Infused Potassium Chloride (Kcl 20 Meq Premix Inj) 20 meq in 100 mls @ 50 mls/hr IV.SIG Q2H PRN PRN Reason: For Potassium 3.3 - 3.5 mEq/L Last Infusion: 01/18/18 07:30 Dose: Infused Potassium Chloride (Kcl 40 Meq Premix Inj) 40 meq in 100 mls @ 25 mls/hr IV.SIG UNSCH PRN PRN Reason: For Potassium 3.3 - 3.5 mEq/L Last Infusion: 01/21/18 20:39 Dose: Infused Potassium Chloride (Kcl 20 Meq Premix Inj) 20 meq in 100 mls @ 50 mls/hr IV.SIG Q2H PRN PRN Reason: For Potassium 2.8 - 3.2 mEq/L Last Infusion: 01/13/18 20:30 Dose: Infused Potassium Phosphate 30 mmol/ (Sodium Chloride) 260 mls @ 42 mls/hr IV.SIG UNSCH PRN PRN Reason: SEE LABEL COMMENTS Sodium Phosphate 30 mmol/ (Sodium Chloride) 260 mls @ 42 mls/hr IV.SIG UNSCH PRN PRN Reason: For Phosphorus < 2.5 mg/dL Piperacillin/Tazobactam/Dextrose (Zosyn 4.5 Gm Premix) 4.5 gm in 100 mls @ 200 mls/hr IV.SIG Q6H VU Last Infusion: 01/22/18 11:22 Dose: Infused Midazolam HCl (Versed Inj) 100 mg in 100 mls @ 2 mls/hr IV.CONT TITRATE PRN; Protocol PRN Reason: See protocol Last Admin: 01/22/18 08:36 Dose: 10 mg/hr, 10 mls/hr Cisatracurium Besylate 100 mg/ (Sodium Chloride) 250 mls @ 14.82 mls/hr IV.CONT TITRATE PRN; Protocol PRN Reason: Per Protocol Last Admin: 01/22/18 13:33 Dose: 7 mcg/kg/min, 103.74 mls/hr Insulin Aspart (Novolog Insulin Correctional Sugar Inj) 0 unit SQ Q6HR VU; Protocol Last Admin: 01/22/18 11:38 Dose: Not Given Labetalol HCl (Trandate Inj) 20 mg IV.PUSH Q2H PRN PRN Reason: SBP>160, DBP>90 Lactulose (Lactulose Liq) 30 ml PO DAILY PRN PRN Reason: SEVERE CONSITIPATION Last Admin: 01/21/18 17:19 Dose: 30 ml Lorazepam (Ativan Inj) 1 mg IV.PUSH Q2H PRN PRN Reason: AGITATION Last Admin: 01/12/18 01:59 Dose: 1 mg Magnesium Oxide (Mag-Ox) 800 mg PO UNSCH PRN PRN Reason: For Magnesium 1.2 - 1.6 mg/dL Methadone HCl (Dolophine) 10 mg PO Q12H VU Last Admin: 01/22/18 14:06 Dose: 10 mg Metoclopramide HCl (Reglan Inj) 10 mg IV.PUSH Q8HR VU; Protocol Last Admin: 01/22/18 13:41 Dose: 10 mg Miscellaneous (Pill Splitter) 1 each OTHER UNSCH PRN PRN Reason: PILL SPLITTER Miscellaneous Medication () 1 each OROPHARYNG 0000,0400,1200,1600 VU Last Admin: 01/22/18 11:39 Dose: 1 each Multivitamins (Theragran) 1 tab NG/OG DAILY VU Last Admin: 01/22/18 08:36 Dose: 1 tab Ondansetron HCl (Zofran Inj) 4 mg IV.PUSH Q6H PRN PRN Reason: NAUSEA OR VOMITING Last Admin: 01/13/18 06:28 Dose: 4 mg Potassium Bicarb/Potassium Chloride (K-Lyte Cl Eff) 50 meq PO UNSCH PRN PRN Reason: For Potassium 3.3 - 3.5 mEq/L Last Admin: 01/21/18 00:35 Dose: 50 meq Potassium Phosphate (K-Phos Original) 2,000 mg PO Q4H PRN PRN Reason: Phosphorus Less Than 2.5 mg/dL Potassium Phosphate (K-Phos Original) 2,000 mg PO UNSCH PRN PRN Reason: SEE LABEL COMMENTS Senna/Docusate Sodium (Rosette-Colace) 1 tab PO BID [facility] Last Admin: 01/22/18 08:36 Dose: 1 tab Sennosides (Senokot) 17.2 mg PO Q12H PRN PRN Reason: Moderate Constipation Sodium Chloride (Ns Flush) 2 ml IV.FLUSH BID [facility] Last Admin: 01/22/18 08:36 Dose: 2 ml Sodium Chloride (Ns Flush) 2 ml IV.FLUSH PRN PRN PRN Reason: FLUSH AFTER USING IV ACCESS Whey (Beneprotein Powder) 2 packet G-TUBE TID [facility] Last Admin: 01/22/18 12:04 Dose: 2 packet Allergies Allergy/AdvReac Type Severity Reaction Status Date / Time No Allergy Information Allergy Verified 01/20/18 01:00 Available Home Medications Medication Instructions Recorded Confirmed Type No Known Home Medications 01/11/18 01/11/18 History Exam Vital signs: Initial Documented Vital Signs Temperature 97.6 F 01/05/18 03:22 Pulse Rate 114 H 01/05/18 03:22 Respiratory Rate 28 H 01/05/18 03:22 Blood Pressure 150/86 H 01/05/18 03:22 Pulse Oximetry 91 L 01/05/18 03:22 Last Documented Vital Signs Temperature 99.5 F 01/22/18 15:00 Pulse Rate 102 H 01/22/18 15:00 Respiratory Rate 20 01/22/18 14:51 Blood Pressure 105/55 L 01/21/18 06:00 Pulse Oximetry 94 L 01/22/18 15:00 Narrative: Patient on the ventilator on the Rotobed Limited examination Of face and head covered by Rotobed pillows Endotracheal tube in place Neck is thin High ventilator settings Barlow catheter NG tube Results - Labs 01/22/18 05:45 01/22/18 05:45 Laboratory Last Values WBC 13.3 th/mm3 (4.0-11.0) H 01/22/18 05:45 RBC 3.75 mil/mm3 (4.50-5.90) L 01/22/18 05:45 Hgb 12.3 gm/dL (13.0-17.0) L 01/22/18 05:45 Hct 35.8 % (39.0-51.0) L 01/22/18 05:45 MCV 95.5 fL (80.0-100.0) 01/22/18 05:45 MCH 32.7 pg (27.0-34.0) 01/22/18 05:45 MCHC 34.3 % (32.0-36.0) 01/22/18 05:45 RDW 13.4 % (11.6-17.2) 01/22/18 05:45 Plt Count 620 th/mm3 (150-450) H 01/22/18 05:45 MPV 8.5 fL (7.0-11.0) 01/22/18 05:45 Prelim Diff (Auto) Manual diff required 01/21/18 05:15 Neut % (Auto) 52.3 % (16.0-70.0) 01/20/18 04:00 Lymph % (Auto) 17.5 % (9.0-44.0) 01/20/18 04:00 Haskell % (Auto) 23.3 % (0.0-8.0) H 01/20/18 04:00 Eos % (Auto) 5.8 % (0.0-4.0) H 01/20/18 04:00 Baso % (Auto) 1.1 % (0.0-2.0) 01/20/18 04:00 Neut # (Auto) 3.9 th/mm3 (1.8-7.7) 01/20/18 04:00 Lymph # (Auto) 1.3 th/mm3 (1.0-4.8) 01/20/18 04:00 Haskell # (Auto) 1.7 th/mm3 (0.0-0.9) H 01/20/18 04:00 Eos # (Auto) 0.4 th/mm3 (0.0-0.4) 01/20/18 04:00 Baso # (Auto) 0.1 th/mm3 (0.0-0.2) 01/20/18 04:00 WBC Differential Manual diff final 01/21/18 05:15 Diff Scan Auto diff confirmed 01/17/18 05:25 Seg Neuts % (Manual) 38 % (16-70) 01/21/18 05:15 Band Neuts % (Manual) 8 % (0-6) H 01/21/18 05:15 Lymphocytes % (Manual) 20 % (9-44) 01/21/18 05:15 Monocytes % (Manual) 20 % (0-8) H 01/21/18 05:15 Eosinophils % (Manual) 9 % (0-4) H 01/21/18 05:15 Basophils % (Manual) 2 % (0-2) 01/21/18 05:15 Myelocytes % (Man) 3 % (0-0) H 01/21/18 05:15 Abs Neuts (Manual) 3.0 th/mm3 (1.8-7.7) 01/21/18 05:15 Differential Comment . 01/21/18 05:15 Toxic Vacuolation Present (None) H 01/10/18 04:37 Platelet Estimate High (Normal) H 01/21/18 05:15 Platelet Morphology Normal (Normal) 01/21/18 05:15 RBC Morphology Normal (Normal) 01/21/18 05:15 PT 10.3 sec (9.8-11.6) 01/05/18 03:45 INR 1.0 Ratio 01/05/18 03:45 APTT 24.9 sec (23.4-31.7) 01/05/18 03:45 Puncture Site Art line 01/22/18 13:10 Patient Temperature 98.6 01/22/18 13:10 O2 Saturation 93 % (90-100) 01/22/18 13:10 ABG pH 7.39 (7.380-7.420) 01/22/18 13:10 ABG pCO2 55 mmHg (38-42) H* 01/22/18 13:10 ABG pO2 78 mmHg (61-120) 01/22/18 13:10 ABG HCO3 32 mmol/L (22-26) H 01/22/18 13:10 ABG O2 Content 14.5 Vol % (12.0-20.0) 01/22/18 13:10 ABG Base Excess 7.2 mmol/L (-2-2) H 01/22/18 13:10 ABG Methemoglobin 1.5 % (0-2) 01/22/18 13:10 Chang Test Present 01/21/18 08:06 Hemoglobin 11.0 G/DL (12.0-16.0) L 01/22/18 13:10 Carboxyhemoglobin 1.0 % (0-4) 01/22/18 13:10 O2 Delivery Device Ventilator 01/22/18 13:10 Vent Setting Prvc/ac 01/22/18 13:10 Inspired O2 40 % 01/22/18 13:10 Critical Value Yes 01/22/18 13:10 Sodium 136 meq/L (136-145) 01/22/18 05:45 Potassium 4.7 meq/L (3.5-5.1) 01/22/18 05:45 Chloride 98 meq/L (98-107) 01/22/18 05:45 Carbon Dioxide 33.6 meq/L (21.0-32.0) H 01/22/18 05:45 Anion Gap 4 meq/L (5-15) L 01/22/18 05:45 BUN 23 mg/dL (7-18) H 01/22/18 05:45 Creatinine 0.90 mg/dL (0.60-1.30) 01/22/18 05:45 Estimated GFR Greater than 89 mL/min (>89) 01/22/18 05:45 POC Glucose 111 mg/dl (68-110) H 01/22/18 11:34 Random Glucose 127 mg/dL (74-106) H 01/22/18 05:45 Lactic Acid 2.6 mmol/L (0.4-2.0) H 01/05/18 07:33 Calcium 9.1 mg/dL (8.5-10.1) 01/22/18 05:45 Phosphorus 4.5 mg/dL (2.5-4.9) 01/20/18 23:48 Magnesium 2.0 mg/dL (1.5-2.5) 01/20/18 23:48 Total Bilirubin 0.7 mg/dL (0.2-1.0) 01/22/18 05:45 AST 58 U/L (15-37) H 01/22/18 05:45 ALT 36 U/L (12-78) 01/22/18 05:45 Alkaline Phosphatase 146 U/L (45-117) H 01/22/18 05:45 Total Creatine Kinase 121 U/L (39-308) 01/05/18 03:45 CK-MB (CK-2) Less than 1.0 ng/mL (0.5-3.6) 01/05/18 03:45 Troponin I Less than 0.02 ng/mL (0.02-0.05) L 01/05/18 03:45 B-Natriuretic Peptide 4 pg/mL (0-100) 01/05/18 03:45 Total Protein 7.8 g/dL (6.4-8.2) D 01/22/18 05:45 Albumin 2.5 g/dL (3.4-5.0) L 01/22/18 05:45 Lipase 162 U/L (73-393) 01/05/18 03:45 Nasal Screen MRSA (PCR) Not detected (Negative) 01/05/18 07:00 Vancomycin Trough 13.6 mcg/mL (5.0-10.0) H 01/16/18 08:46 Salicylates 2.4 mg/dL (2.8-20.0) L 01/05/18 03:45 Urine Opiates Screen Pos (Neg) H 01/05/18 04:24 Acetaminophen Less than 2.0 mcg/mL (10.0-30.0) L 01/05/18 03:45 Ur Barbiturates Screen Neg (Neg) 01/05/18 04:24 Ur Amphetamines Screen Neg (Neg) 01/05/18 04:24 U Benzodiazepines Scrn Neg (Neg) 01/05/18 04:24 Urine Cocaine Screen Pos (Neg) H 01/05/18 04:24 U Cannabinoids Screen Pos (Neg) H 01/05/18 04:24 Serum Alcohol 61 mg/dL (0-5) H 01/05/18 03:45 - Imaging Imaging: ITS Impressions Head CT 01/05/18 05:01 CONCLUSION: 1. No acute intracranial findings. 2. Air-fluid levels in the right maxillary and sphenoid sinuses suggesting possible acute sinusitis versus air-fluid levels related to intubation.. . Chest CT 01/08/18 00:00 CONCLUSION: 1. Increasing airspace disease especially in both upper lobes. 2. Persistent dense consolidation in the lower lobes without significant improvement. 3. Increasing right pleural effusion. Abdomen X-Ray 01/20/18 05:00 CONCLUSION: Feeding tube distal tip is either in the first portion of the duodenum or pylorus region of the stomach. Venous Doppler Study 01/22/18 00:00 CONCLUSION: No venous thrombosis is identified within either upper extremity. Chest X-Ray 01/22/18 07:38 CONCLUSION: No acute abnormality is identified. The pleural-based opacity on the right documented on yesterday's examination is no longer visualized. Chest x-ray: report reviewed, image reviewed Assessment and Plan - Assessment (1) Ventilator dependent Code(s): Z99.11 - Dependence on respirator [ventilator] status Status: Acute (2) Respiratory failure Code(s): J96.90 - Respiratory failure, unspecified, unspecified whether with hypoxia or hypercapnia Status: Acute Qualifiers: Chronicity: acute Respiratory failure complication: hypoxia and hypercapnia Qualified Code(s): J96.01 - Acute respiratory failure with hypoxia ; J96.02 - Acute respiratory failure with hypercapnia (3) Heroin overdose Code(s): T40.1X1A - Poisoning by heroin, accidental (unintentional), initial encounter Status: Acute Qualifiers: Encounter type: initial encounter Injury intent: undetermined intent Qualified Code(s): T40.1X4A - Poisoning by heroin, undetermined, initial encounter (4) Polysubstance abuse Code(s): F19.10 - Other psychoactive substance abuse, uncomplicated Status: Chronic (5) Cocaine abuse Code(s): F14.10 - Cocaine abuse, uncomplicated Status: Acute (6) Aspiration pneumonia Code(s): J69.0 - Pneumonitis due to inhalation of food and vomit Status: Acute - Attending Attestation CONSULTATION NOTE FOR SURGICAL ATTENDING, DR. KEHINDE IVEY Discussed with Dr. Noble critical care Hopefully will be stable enough to perform tracheostomy later next week I attest that I had a [id number] encounter with the patient on the same day, and personally performed and documented my assessment and findings in the medical record. The following services were provided during this hospital visit: Chart data review, vital sign assessments/reviewing monitor data Review of consultations notes if present. Medication orders/review and/or management Ordering and/or reviewing lab tests Ordering and/or interpreting/reviewing x-rays and/or diagnostic studies Care of the patient and discussion of the patient with the care team Documentation time To help prompt me to consider important information that might be impacting today's encounter and assessment, Information from prior notes written by myself or my colleagues may have been "brought forward/copy and pasted" into today's note.
--- NOTE | 2018-01-22 15:47 | P.DIET ---
Nutritional Evaluation Type of nutrition evaluation: follow-up Nutrition consult regarding: Tube Feeding Objective - Diagnosis Respiratory Failure s/p heroin overdose - Objective % IBW: 103 (IBW = 178#) Energy Needs - Lower Range (kCal/kg): 28 Energy Needs - Upper Range (kCal/kg): 32 Lower Limit kCal/kg (kCals): 2,327 Upper Limit kCal/kg (kCals): 2,659 Lower Limit Protein Factor (Grams per Kg): 1.2 Upper Limit Protein Factor (Grams per Kg): 1.6 Lower Protein Needs (Protein): 100 Upper Protein Needs (Protein): 133 Dietitian Reviewed in Medical Record: Curent medications, Intake & Output, Labs , Medical history, Tube feeding Diet Order: NPO Assessment Assessment: Pt remains at high nutrition risk 2' to the need for TFing. TF of Oxepa @ 10 mls /hr running, although that is not the order. Recommend Jevity 1.5 @ 65 mls/hr as ordered to provide 2340 kcals, 100 gms protein and 1186 mls of free water. Beneprotein as ordered will provide 36 additional grams of protein. Some additional kcals will also come from propofol (1.1 kcal/ml) when running. Labs, wts and clinical course reviewed. Recommendations: Jevity 1.5 @ 65 mls/hr goal Beneprotein as ordered Dietitian to Monitor: Lab values, Tube feeding tolerance, Weight change, Medical course
[2018-01-22 15:58] LABS: Bilirubin,Urine Negative (Negative); Clarity,Urine Clear (Clear); Color,Urine Yellow (Yellw/Straw); Glucose,Urine (UA) Negative (Negative); Hyaline Casts,Urine 5 /lpf (0-3); Leukocyte Esterase,Urine Negative (Negative); Nitrite,Urine Negative (Negative); Specific Gravity,Urine 1.026 (1.002-1.035)
--- NOTE | 2018-01-22 16:22 | ECHRPT ---
Indication: SHORTNESS OF BREATH CONCLUSIONS Normal left ventricular size. Wall thickness is normal. The left ventricular systolic function is mildly reduced with an estimated ejection fraction in the range of 45- 50%. The estimated pulmonary arterial pressure is 18 mmHg. BP: / HR: Rhythm: MEASUREMENTS (Male / Female) Normal Values Technical Quality:Very technically difficult study 2D ECHO LV Diastolic Diameter PLAX 4.4 cm 4.2 - 5.9 / 3.9 - 5.3 cm LV Systolic Diameter PLAX 3.2 cm IVS Diastolic Thickness 1.1 cm 0.6 - 1.0 / 0.6 - 0.9 cm LVPW Diastolic Thickness 1.0 cm 0.6 - 1.0 / 0.6 - 0.9 cm LV Relative Wall Thickness 0.5 RV Internal Dim ED PLAX 2.5 cm LVOT Diameter 2.0 cm Aortic Root Diameter 2.7 cm LA Systolic Diameter LX 2.2 cm 3.0 - 4.0 / 2.7 - 3.8 cm DOPPLER TR Peak Velocity 137.0 cm/s TR Peak Gradient 7.5 mmHg Right Atrial Pressure 10.0 mmHg Pulmonary Artery Systolic Pressu 17.5 mmHg Right Ventricular Systolic Press 17.5 mmHg FINDINGS LEFT VENTRICLE Normal left ventricular size. Wall thickness is normal. The left ventricular systolic function is mildly reduced with an estimated ejection fraction in the range of 45- 50%. RIGHT VENTRICLE Normal right ventricular size and systolic function. LEFT ATRIUM The left atrial size is normal. RIGHT ATRIUM The right atrium is not well visualized. ATRIAL SEPTUM The interatrial septum not well visualized. MITRAL VALVE Structurally normal mitral valve. No mitral valve regurgitation. AORTIC VALVE The aortic valve cusps are not well visualized. No stenosis TRICUSPID VALVE The estimated pulmonary arterial pressure is 18 mmHg. PULMONARY VALVE The pulmonary valve is not well visualized. VESSELS The inferior vena cava was not well visualized. PERICARDIUM No pericardial effusion. Shane Lovett MD (Electronically Signed) Final Date:22 January 2018 16:21
[2018-01-22 19:40] LABS: ABG Base Excess 6.7 mmol/L (-2-2); ABG PCO2 49 mmHg (38-42); ABG PO2 78 mmHg (61-120)
[2018-01-23] MEDS: Cisatracurium Inj 100 MG in Sodium Chlor 0.9% Inj 240 ML IV.CONT PRN ×8 (01:27→23:57)
[2018-01-23] MEDS: fentaNYL 10 mcg/mL Premix Drip 2,500 MCG/250 ML BAG IV.SIG PRN ×2 (01:39→18:30)
[2018-01-23] MEDS: Methadone 10 MG Tablet PO SCH ×2 (02:55→16:56)
[2018-01-23] MEDS: Midazolam 100 MG/100 ML Inj 100 MG/100 ML BAG IV.CONT PRN ×3 (03:08→21:36)
[2018-01-23] MEDS: Piperacil/Tazo 4.5 GM Premix 4.5 GM/100 ML BAG IV.SIG SCH ×4 (04:03→22:18)
[2018-01-23] MEDS: Oral Hygiene Kit OROPHARYNG SCH ×3 (04:03→16:53)
[2018-01-23] MEDS: Propofol 1000 mg/100 ml Inj 1,000 MG/100 ML BOTTLE IV.CONT PRN ×5 (04:10→21:38)
[2018-01-23] MEDS: Insulin NovoLOG Aspart Correctional Sugar Inj SQ SCH ×3 (05:01→18:29)
[2018-01-23 05:22] LABS: ABG Base Excess 8.9 mmol/L (-2-2); ABG PCO2 51 mmHg (38-42); ABG PO2 100 mmHg (61-120)
[2018-01-23 07:52] LABS: Anion Gap 6 meq/L (5-15); Blood Urea Nitrogen 19 mg/dL (7-18); Calcium 8.2 mg/dL (8.5-10.1); Carbon Dioxide 35.5 meq/L (21.0-32.0); Chloride 99 meq/L (98-107); Glomerular Filtration Rate Greater Than 89 mL/min (>89); Glucose,Random 109 mg/dL (74-106); Magnesium 2.1 mg/dL (1.5-2.5); Phosphorus 2.4 mg/dL (2.5-4.9); Sodium 140 meq/L (136-145); Triglycerides 520 mg/dL (42-150)
[2018-01-23 07:54] LABS: Potassium 2.6 meq/L (3.5-5.1)
[2018-01-23] MEDS: Potassium Chloride 25 MEQ Effervescent Tablet PO PRN (08:09)
[2018-01-23] MEDS: Senna/Docusate Sodium 8.6/50 MG Tablet PO SCH ×2 (08:09→20:17)
[2018-01-23] MEDS: Famotidine PF Inj 20 MG/2 ML Vial IV.PUSH SCH ×2 (08:09→20:17)
[2018-01-23] MEDS: Enoxaparin Inj 40 MG/0.4 ML Syringe SQ SCH (08:09)
[2018-01-23] MEDS: Potassium Chlor 40 mEq Premix 40 MEQ/100 ML PIGGYBACK IV.SIG PRN ×2 (08:10→17:48)
[2018-01-23] MEDS: Beneprotein Powder Packet G-TUBE SCH ×3 (08:11→17:00)
[2018-01-23] MEDS: Chlorhexidine 0.12% Oral Kit 15 ML UDC OROPHARYNG SCH ×2 (08:11→20:17)
[2018-01-23 10:11] LABS: ABG Base Excess 7.2 mmol/L (-2-2); ABG PCO2 60 mmHg (38-42); ABG PO2 65 mmHg (61-120)
--- NOTE | 2018-01-23 10:32 | P.PNCC ---
Subjective Subjective Remarks/Hospital Course: 37-year-old male who is brought to [facility] emergency department after friends contacted [facility] due to decreased mental status with suspected heroin overdose. He had used heroin earlier in the evening. [facility] reportedly found him laying in emesis with a thready pulse. They gave him sequential doses of Narcan to a total of 2.4 mg IV at which point he became more awake and alert. He then had multiple episodes of vomiting in route. NG tube was placed by the paramedics and they aspirated gastric contents and then removed s NG prior to arrival. His room air sats were reportedly 84% and he was placed on NR. Patient told Dr. Lovett that this was his first time using heroin and that he injected it. CXR demonstrated RLL opacity. He was started on Unasyn for aspiration pneumonia and given nebs. He eventually was intubated due to hypoxia with sats in high 80s despite nonrebreather. [employer] consulted for admission. 01/06: Remains sedated and intubated, requires PEEP 12 and FiO2 70%, will try to wean these today if tolerated. 01/07: Agitated overnight and this morning, 2 episodes where the patient bit down on ETT, desaturated, and became unstable. Not tolerating pressure support trials. 01/08: Remains sedated, orally intubated on mechanical ventilation. PEEP remains at +12. CT chest done today shows worsening consolidations. Pleural effusion. 01/09: Remains critically ill with severe bilateral lower lobe consolidated pneumonias. Requiring markedly elevated mean airway pressure still. Patient is nutritionally depleted and not responding well to our aggressive medical treatment. 01/10: Continued requirements for markedly elevated fractional inspiratory oxygen concentration. Continued dense consolidation in both lower lobes PEEP reduced to avoid overexpansion of upper lobes. 01/11: Converted to airway pressure release ventilation because of inability to oxygenate adequately. We will probably have to add Flolan. Lengthy discussion with family about the severity of his respiratory problems and pneumonia. 01/12: Some progress but remains with high A-aO2 gradient. ET tube above clavicles; repositioned. Copious foul secretions. High requirement requirements for analgesia and sedation due to alcohol history. Will continue methadone and start scheduled Librium in an attempt to lower the intravenous requirements. 01/13: Remains sedated, orally intubated on mechanical ventilation. 01/14: Remains sedated, orally intubated on mechanical ventilation. Remains on APRV mode. On inhaled Flolan. 01/15: Remains sedated, intubated on AP RV mode mechanical ventilation. Inhaled Flolan titrated down to 30 ng/kg/min. Placed on rotarest bed yesterday. Starting Lasix to mobilize fluid in view of positive fluid balance. 01/16: Dense consolidation right lower lobe causing severe shunting and hypoxemia. He will likely require pronating to drain the basilar lower lobes. Patient remains critically ill with an unrelenting bilateral pneumonia proving refractory to our best antibiotic and ventilatory interventions. 01/17: Persistent shunting through consolidated right lower lobe is producing profound hypoxemia. Presently requiring roto-rest bed and markedly elevated mean airway pressures on mechanical ventilation. Sputum obtained during alveolar lavage of the right lower lobe yesterday is still pending. Patient remains critically ill and generally edematous. 01/18: Not progressing on Roto-Rest bed. Remains on 65% FiO2, inhaled Flolan, AP RV mode mechanical ventilation. We will attempt to place on prone ventilation after neuromuscular blockade and switching to pressure control inverse ratio mode mechanical ventilation. Also placing Dobbhoff to see if he tolerates tube feeds better and will be placing central line 01/19: Placed on prone ventilation on 01/19 after switching to PC/AC PIP+18, PEEP+ 15, Rate 18, I :E 3.5:1, FiO2 65%. FiO2 requirement down to 40% with proning. Remains on inhaled flolan. On neuromuscular blockade. 01/20: Continues on prone ventilation. Flolan being titrated down. Chest x-ray showed significant improvement in aeration bilaterally. 01/21: Remains on prone ventilation. On sedation and neuromuscular blockade. Flolan off since yesterday. O2 sats dropped on attempting to titrate PEEP below 14. Remains on 45-50% FiO2, rate 18, I:E ratio 1.5 :1 01/22: Sedated, orally intubated on mechanical ventilation. Remains on prone ventilation. PCO2 climbing. Changed to PRVC mode, PEEP +12. Increased rate to 24 and tidal volume to 500 this morning in view of elevated PCO2 on ABG. Chest x-ray is essentially clear bilaterally. Obtaining lower extremity venous Dopplers to evaluate for DVT and a 2D echo. 01/23: Remains sedated, orally intubated on neuromuscular blockade. Stopping from ventilation today. On PRVC mode mechanical ventilation tidal volume 450, rate 18, FiO2 40%, PEEP +10. Decreased I time to 1.2 seconds. Gradually advancing Dobbhoff feeds. Plan on stopping neuromuscular blockade later today. Objective Vital Signs / I&O: Vital Signs 01/22/18 11:00 01/22/18 11:32 01/22/18 12:00 Temperature 97.9 F 98.4 F Pulse Rate 92 H 85 Respiratory Rate 27 H Blood Pressure Pulse Oximetry 100 100 01/22/18 13:00 01/22/18 14:00 01/22/18 14:51 Temperature 99.3 F 99.9 F H Pulse Rate 90 98 H Respiratory Rate 20 Blood Pressure Pulse Oximetry 98 100 01/22/18 15:00 01/22/18 16:00 01/22/18 17:00 Temperature 99.5 F 98.8 F 98.2 F Pulse Rate 102 H 89 86 Respiratory Rate Blood Pressure Pulse Oximetry 94 L 96 97 01/22/18 18:00 01/22/18 19:00 01/22/18 20:00 Temperature 98.4 F 98.8 F 98.8 F Pulse Rate 87 83 86 Respiratory Rate 20 20 20 Blood Pressure Pulse Oximetry 97 100 100 01/22/18 20:39 01/22/18 21:00 01/22/18 22:00 Temperature 99.0 F 99.1 F Pulse Rate 91 H 92 H Respiratory Rate 20 20 20 Blood Pressure Pulse Oximetry 96 96 98 01/22/18 23:00 01/22/18 23:39 01/23/18 00:00 Temperature 98.6 F 98.4 F Pulse Rate 92 H 90 Respiratory Rate 20 20 20 Blood Pressure Pulse Oximetry 95 95 94 L 01/23/18 01:00 01/23/18 02:00 01/23/18 03:00 Temperature 98.4 F 98.6 F 98.6 F Pulse Rate 87 87 85 Respiratory Rate 20 20 20 Blood Pressure Pulse Oximetry 95 95 95 01/23/18 03:37 01/23/18 04:00 01/23/18 05:00 Temperature 98.6 F 98.6 F Pulse Rate 82 86 Respiratory Rate 20 20 20 Blood Pressure 131/67 Pulse Oximetry 95 96 95 01/23/18 05:56 01/23/18 05:57 12/08/18 08:38 Temperature 98.8 F Pulse Rate 87 88 Respiratory Rate 20 18 Blood Pressure Pulse Oximetry 95 94 L Intake & Output 01/22/18 01/23/18 01/23/18 18:59 06:59 18:59 Intake Total 2165 / 2165 2111 / 2111 350 / 350 Output Total 2675 / 2675 3025 / 3025 Balance -510 / -510 -914 / -914 350 / 350 Intake: IV 1950 / 1950 1850 / 1850 350 / 350 Nimbex Inj 100 MG In NS Inj 240 1250 / 1250 1000 / 1000 250 / 250 ML @ 1 MCG/KG/MIN 14.82 mls/hr IV.CONT TITRATE PRN Rx#: [id number] Versed Inj 100 mg In 100 ml @ 2 200 / 200 100 / 100 MG/HR 2 mls/hr IV.CONT TITRATE PRN Rx#:[id number] Diprivan 1000 mg/100 ml Inj 1, 300 / 300 300 / 300 100 / 100 000 mg In 100 ml @ 5 MCG/KG/MIN 2.585 mls/hr IV.CONT TITRATE PRN Rx#:[id number] Zosyn 4.5 GM Premix 4.5 gm In 200 / 200 200 / 200 100 ml @ 200 mls/hr IV.SIG Q6H VU Rx#:[id number] fentaNYL 10 mcg/mL Premix Drip 250 / 250 2,500 mcg In 250 ml @ 50 MCG/HR 5 mls/hr IV.SIG TITRATE PRN Rx #:[id number] Tube Feeding 95 / 95 261 / 261 Water Bolus Amount 120 / 120 Output: Stool 25 / 25 100 / 100 Urine Amount (Catheter) 2450 / 2450 2725 / 2725 Indwelling Urethral Catheter 2450 / 2450 2725 / 2725 Gastric Drainage 200 / 200 200 / 200 Orogastric Tube 200 / 200 200 / 200 Other: Date of Last Bowel Movement 01/22/18 01/22/18 Result Diagrams: 01/22/18 05:45 01/23/18 07:10 Imaging: Impressions Venous Doppler Study 01/22/18 00:00 CONCLUSION: No venous thrombosis is identified within either lower extremity. Venous Doppler Study 01/22/18 00:00 CONCLUSION: No venous thrombosis is identified within either upper extremity. Chest X-Ray 01/22/18 07:38 CONCLUSION: No acute abnormality is identified. The pleural-based opacity on the right documented on yesterday's examination is no longer visualized. Objective Remarks: GEN: Intubated and sedated, on neuromuscular blockade HEENT: Reactive pupils 2mm, Trachea midline, orotracheal intubation CARDIO: S1-S2 regular, no murmur. Neck: Right IJ central line in place PULM: Orally intubated on mechanical ventilation, good air entry bilaterally, scattered rhonchi, no wheezing ABD/GI: Soft, non-distended. No guarding, bowel sounds are active. No tenderness. EXT/MSK: 2+ peripheral edema, warm, adequately perfused. SKIN: No rashes or lesions. Well perfused. Skin blistering over abdominal wall. NEURO: Sedated, orally intubated on mechanical ventilation. On neuromuscular blockade Assessment and Plan - Problem List (1) Heroin overdose Code(s): T40.1X1A - Poisoning by heroin, accidental (unintentional), initial encounter Status: Acute (2) Polysubstance abuse Code(s): F19.10 - Other psychoactive substance abuse, uncomplicated Status: Chronic (3) Cocaine abuse Code(s): F14.10 - Cocaine abuse, uncomplicated Status: Acute (4) Elevated ETOH level Code(s): R78.0 - Finding of alcohol in blood Status: Acute (5) Marijuana abuse Code(s): F12.10 - Cannabis abuse, uncomplicated Status: Acute (6) TORREY (acute kidney injury) Code(s): N17.9 - Acute kidney failure, unspecified Status: Acute (7) Severe sepsis Code(s): A41.9 - Sepsis, unspecified organism; R65.20 - Severe sepsis without septic shock Status: Acute (8) Acute respiratory failure with hypoxia Code(s): J96.01 - Acute respiratory failure with hypoxia Status: Acute (9) Aspiration pneumonia Code(s): J69.0 - Pneumonitis due to inhalation of food and vomit Status: Acute (10) Vomiting Code(s): R11.10 - Vomiting, unspecified Status: Acute (11) Hyperglycemia Code(s): R73.9 - Hyperglycemia, unspecified Status: Acute (12) Protein-calorie malnutrition, moderate Code(s): E44.0 - Moderate protein-calorie malnutrition Status: Acute - Assessment and Plan Plan: NEURO: Heroin overdose Polysubstance abuse (marijuana, opiate, cocaine) Propofol/ versed/ fentanyl for sedation. On Nimbex for neuromuscular blockade Thiamine/multivitamin supplementation CT head negative Tolerance to narcotic analgesia implies chronic narcotic use On methadone to wean fentanyl. Continue librium 25 mg p.o. twice daily RESP: Acute hypoxemic respiratory failure Acute aspiration pneumonia Intubated in ED 01/05 due to hypoxia. inhaled flolan discontinued on 01/21 Initially on AP RV mode which was switched to pressure control inverse ratio mechanical ventilation with Proning on 01/18. Changed to PRVC on 01/21 a.m. in view of elevated PCO2 to ensure adequate tidal volumes. PEEP +12, rate 22, FiO2 45%. I:E 1:1 DuoNeb every 6 hours. Albuterol every [address] chest with dense bilateral basilar consolidations and small right pleural effusion Considerable sputum withdrawn from right lower lobe on 01/16 during bronchoscopy , culture results normal alistair. Significant improvement in lung aeration following prone ventilation however now PCO2 climbing. CV: Telemetry and BP monitoring in ICU Being diuresed to mobilize fluid Lower extremity venous Dopplers negative for DVTs. F/U 2D echo to assess RV/LV function and for shunting. GI: Continue tube feedings via dobhoff, advance to goal as tolerated. Having high residuals. On Reglan IV. Decrease fentanyl gtt as also on methadone. Zofran prn. FEN/RENAL: TORREY - suspect pre-renal secondary to overdose and sepsis, improved CPK is normal Urine output adequate Lasix 40 mg IV Q6H to mobilize fluid on 01/19. Received Diamox on 01/20 and 01/21 for metabolic alkalosis secondary to diuresis with Lasix. ID: Severe Sepsis secondary to aspiration pneumonia MRSA swab negative Blood cultures from 01/05 growing staph epidermidis in both bottles, repeat cultures sent 01/06 no growth at 1 day Consulted ID for antibiotic management in view of worsening respiratory status/ sepsis. On zosyn IV. Vancomycin discontinued Organism eludes us, sputum culture from 01/16 pending result Ordered akers cultures on 01/22 due to fever and leukocytosis. HEME: No acute hematologic issues aside from leukocytosis.. Coags are normal. ENDO: Acute hyperglycemia Monitor bedside glucose every 6 hours and administer low-dose insulin sliding scale as indicated. Poor diabetic control has been an intermittent problem PROPH: -PPI -SCDs/ lovenox ACCESS: RIJ central line placed 01/18 OVERALL: This patient remains critically ill requiring quite high levels of ventilator support for aspiration pneumonia and heroin drug overdose. His initial response to aggressive medical therapy has been poor, undoubtedly related to chronic debilitation and poor baseline nutritional status. His long- term prognosis is guarded, largely due to concerns about his nutritional and immune status. He initially failed bilevel ventilation but did more poorly on conventional. Now on prone ventilation. He requires constant manipulation of the assessment of his arterial blood gases, fluid removal, and antibiotic adjustment. He remains very unstable from a respiratory standpoint. Critical care time 45 minutes aside from procedures.
[2018-01-23] MEDS: chlordiazePOXIDE 25 MG Capsule PO SCH (18:29)
[2018-01-24] MEDS: Insulin NovoLOG Aspart Correctional Sugar Inj SQ SCH ×4 (00:05→17:32)
[2018-01-24] MEDS: Oral Hygiene Kit OROPHARYNG SCH ×4 (00:08→16:41)
[2018-01-24] MEDS: Propofol 1000 mg/100 ml Inj 1,000 MG/100 ML BOTTLE IV.CONT PRN ×6 (00:19→22:06)
[2018-01-24] MEDS: Methadone 10 MG Tablet PO SCH ×2 (02:55→14:43)
[2018-01-24] MEDS: Cisatracurium Inj 100 MG in Sodium Chlor 0.9% Inj 240 ML IV.CONT PRN ×4 (03:39→12:00)
[2018-01-24 04:20] LABS: ABG Base Excess 9.5 mmol/L (-2-2); ABG PCO2 62 mmHg (38-42); ABG PO2 106 mmHg (61-120)
[2018-01-24] MEDS: Piperacil/Tazo 4.5 GM Premix 4.5 GM/100 ML BAG IV.SIG SCH ×4 (04:57→23:35)
[2018-01-24 05:13] LABS: Alkaline Phosphatase 130 U/L (45-117)
[2018-01-24 05:14] LABS: Alanine Aminotransferase 31 U/L (12-78); Albumin 2.2 g/dL (3.4-5.0); Anion Gap 4 meq/L (5-15); Aspartate Aminotransferase 44 U/L (15-37); Blood Urea Nitrogen 17 mg/dL (7-18); Calcium 8.5 mg/dL (8.5-10.1); Carbon Dioxide 35.6 meq/L (21.0-32.0); Chloride 99 meq/L (98-107); Glomerular Filtration Rate Greater Than 89 mL/min (>89); Glucose,Random 108 mg/dL (74-106); Potassium 3.5 meq/L (3.5-5.1); Sodium 139 meq/L (136-145)
[2018-01-24] MEDS: Midazolam 100 MG/100 ML Inj 100 MG/100 ML BAG IV.CONT PRN ×2 (07:24→16:37)
--- NOTE | 2018-01-24 08:07 | XR ---
EXAM DATE: 01/24/2018 7:54 AM EST AGE/SEX: 37 years / Male INDICATIONS: Shortness of breath. CLINICAL DATA: This is the patient's subsequent encounter. Patient reports that signs and symptoms h ave been present for 3 days and indicates a pain score of Nonresponsive. MEDICAL/SURGICAL HISTORY: None. None. COMPARISON: [facility] [place] CHEST 1V SINGLE AP, 01/22/2018. . FINDINGS: Supportive devices remain in stable position. Increasing interstitial vascular prominence and development of significant right basilar opacity has occurred since the previous study. Osseous structures remain intact. CONCLUSION: Interval development of right basilar opacity characteristic of developing airspace disease and possi ble right pleural effusion. Increasing interstitial vascular prominence. Stable supportive devices. Electronically signed by: Eugenio Houston MD 01/24/2018 8:06 AM EST
[2018-01-24] MEDS: Beneprotein Powder Packet G-TUBE SCH ×3 (08:22→17:32)
[2018-01-24] MEDS: Famotidine PF Inj 20 MG/2 ML Vial IV.PUSH SCH ×2 (08:22→21:29)
[2018-01-24] MEDS: Potassium Chloride 25 MEQ Effervescent Tablet PO PRN (08:22)
[2018-01-24] MEDS: chlordiazePOXIDE 25 MG Capsule PO SCH (08:22)
[2018-01-24] MEDS: Senna/Docusate Sodium 8.6/50 MG Tablet PO SCH ×2 (08:22→21:29)
[2018-01-24] MEDS: Enoxaparin Inj 40 MG/0.4 ML Syringe SQ SCH (08:22)
[2018-01-24] MEDS: Chlorhexidine 0.12% Oral Kit 15 ML UDC OROPHARYNG SCH ×2 (08:23→21:28)
[2018-01-24] MEDS: fentaNYL 10 mcg/mL Premix Drip 2,500 MCG/250 ML BAG IV.SIG PRN (12:04)
--- NOTE | 2018-01-24 12:08 | P.PCN ---
Date of procedure: 01/24/18 Pre-op diagnosis: Acute hypoxemic respiratory failure, right lower lobe atelectasis Post-op diagnosis: same Procedure: Procedure fiberoptic bronchoscopy and bronchoalveolar lavage Informed consent obtained from family and documented in chart Anesthesia used patient is on continuous propofol, Versed, fentanyl and Nimbex infusions Procedure: Patient was placed on 100% oxygen via ET tube/mechanical ventilator. After ensuring adequate sedation/analgesia/ neuromuscular blockade, fiberoptic bronchoscope was inserted via adapter on ET tube and advanced into the trachea upto the jhony. Subsequently bronchoscope was advanced into the right mainstem bronchus and to the right lower lobe bronchus were mild to moderate amount of mucus was suctioned out. Bronchoalveolar lavage was performed RLL. Subsequently bronchoscope was withdrawn and advanced down the left sided airways with minimal mucous plugs which were suctioned out and bronchoalveolar lavage was performed. bronchoscope was withdrawn out of the ET tube. Patient tolerated the procedure well with no immediate complications noted. We will follow-up chest x-ray when available. Anesthesia: GETA Surgeon: Taqueria Ram Estimated blood loss (mL): 0 Pathology: other (BAL) Condition: critical Disposition: ICU
--- NOTE | 2018-01-24 12:10 | P.PNCC ---
Subjective Subjective Remarks/Hospital Course: 37-year-old male who is brought to [facility] emergency department after friends contacted [facility] due to decreased mental status with suspected heroin overdose. He had used heroin earlier in the evening. [facility] reportedly found him laying in emesis with a thready pulse. They gave him sequential doses of Narcan to a total of 2.4 mg IV at which point he became more awake and alert. He then had multiple episodes of vomiting in route. NG tube was placed by the paramedics and they aspirated gastric contents and then removed s NG prior to arrival. His room air sats were reportedly 84% and he was placed on NR. Patient told Dr. Lovett that this was his first time using heroin and that he injected it. CXR demonstrated RLL opacity. He was started on Unasyn for aspiration pneumonia and given nebs. He eventually was intubated due to hypoxia with sats in high 80s despite nonrebreather. Rules Examiner consulted for admission. 01/06: Remains sedated and intubated, requires PEEP 12 and FiO2 70%, will try to wean these today if tolerated. 01/07: Agitated overnight and this morning, 2 episodes where the patient bit down on ETT, desaturated, and became unstable. Not tolerating pressure support trials. 01/08: Remains sedated, orally intubated on mechanical ventilation. PEEP remains at +12. CT chest done today shows worsening consolidations. Pleural effusion. 01/09: Remains critically ill with severe bilateral lower lobe consolidated pneumonias. Requiring markedly elevated mean airway pressure still. Patient is nutritionally depleted and not responding well to our aggressive medical treatment. 01/10: Continued requirements for markedly elevated fractional inspiratory oxygen concentration. Continued dense consolidation in both lower lobes PEEP reduced to avoid overexpansion of upper lobes. 01/11: Converted to airway pressure release ventilation because of inability to oxygenate adequately. We will probably have to add Flolan. Lengthy discussion with family about the severity of his respiratory problems and pneumonia. 01/12: Some progress but remains with high A-aO2 gradient. ET tube above clavicles; repositioned. Copious foul secretions. High requirement requirements for analgesia and sedation due to alcohol history. Will continue methadone and start scheduled Librium in an attempt to lower the intravenous requirements. 01/13: Remains sedated, orally intubated on mechanical ventilation. 01/14: Remains sedated, orally intubated on mechanical ventilation. Remains on APRV mode. On inhaled Flolan. 01/15: Remains sedated, intubated on AP RV mode mechanical ventilation. Inhaled Flolan titrated down to 30 ng/kg/min. Placed on rotarest bed yesterday. Starting Lasix to mobilize fluid in view of positive fluid balance. 01/16: Dense consolidation right lower lobe causing severe shunting and hypoxemia. He will likely require pronating to drain the basilar lower lobes. Patient remains critically ill with an unrelenting bilateral pneumonia proving refractory to our best antibiotic and ventilatory interventions. 01/17: Persistent shunting through consolidated right lower lobe is producing profound hypoxemia. Presently requiring roto-rest bed and markedly elevated mean airway pressures on mechanical ventilation. Sputum obtained during alveolar lavage of the right lower lobe yesterday is still pending. Patient remains critically ill and generally edematous. 01/18: Not progressing on Roto-Rest bed. Remains on 65% FiO2, inhaled Flolan, AP RV mode mechanical ventilation. We will attempt to place on prone ventilation after neuromuscular blockade and switching to pressure control inverse ratio mode mechanical ventilation. Also placing Dobbhoff to see if he tolerates tube feeds better and will be placing central line 01/19: Placed on prone ventilation on 01/19 after switching to PC/AC PIP+18, PEEP+ 15, Rate 18, I :E 3.5:1, FiO2 65%. FiO2 requirement down to 40% with proning. Remains on inhaled flolan. On neuromuscular blockade. 01/20: Continues on prone ventilation. Flolan being titrated down. Chest x-ray showed significant improvement in aeration bilaterally. 01/21: Remains on prone ventilation. On sedation and neuromuscular blockade. Flolan off since yesterday. O2 sats dropped on attempting to titrate PEEP below 14. Remains on 45-50% FiO2, rate 18, I:E ratio 1.5 :1 01/22: Sedated, orally intubated on mechanical ventilation. Remains on prone ventilation. PCO2 climbing. Changed to PRVC mode, PEEP +12. Increased rate to 24 and tidal volume to 500 this morning in view of elevated PCO2 on ABG. Chest x-ray is essentially clear bilaterally. Obtaining lower extremity venous Dopplers to evaluate for DVT and a 2D echo. 01/23: Remains sedated, orally intubated on neuromuscular blockade. Stopping from ventilation today. On PRVC mode mechanical ventilation tidal volume 450, rate 18, FiO2 40%, PEEP +10. Decreased I time to 1.2 seconds. Gradually advancing Dobbhoff feeds. Plan on stopping neuromuscular blockade later today. 01/24: Intubated sedated remains on neuromuscular blockade. Worsening oxygenation FiO2 up to 60% PEEP increased to 12. Chest x-ray shows right-sided atelectasis versus airspace disease. Bronchoscopy performed and BAL sent. off prone therapy. Mother updated at the bedside Objective Vital Signs / I&O: Vital Signs 01/23/18 12:36 01/23/18 13:00 01/23/18 14:00 Temperature 98.6 F 98.6 F Pulse Rate 97 H 95 H Respiratory Rate 18 18 Pulse Oximetry 95 91 L 92 L 01/23/18 15:00 01/23/18 16:00 01/23/18 16:45 Temperature 98.8 F 99.0 F Pulse Rate 96 H 98 H Respiratory Rate 18 18 Pulse Oximetry 93 L 93 L 93 L 01/23/18 17:00 01/23/18 18:00 01/23/18 19:00 Temperature 99.0 F 99.1 F 99.0 F Pulse Rate 96 H 96 H 94 H Respiratory Rate 18 Pulse Oximetry 94 L 93 L 95 01/23/18 19:31 01/23/18 20:00 01/23/18 21:00 Temperature 98.8 F 98.8 F Pulse Rate 98 H 97 H Respiratory Rate 18 18 18 Pulse Oximetry 95 94 L 95 01/23/18 22:00 01/23/18 22:17 01/23/18 23:00 Temperature 99.0 F 99.3 F Pulse Rate 105 H 111 H Respiratory Rate 18 18 Pulse Oximetry 90 L 93 L 90 L 01/23/18 23:12 01/24/18 00:00 01/24/18 01:00 Temperature 99.3 F 97.9 F Pulse Rate 105 H 104 H Respiratory Rate 18 18 18 Pulse Oximetry 92 L 94 L 93 L 01/24/18 02:00 01/24/18 03:00 01/24/18 03:44 Temperature 99.0 F 99.0 F Pulse Rate 105 H 100 H Respiratory Rate 18 18 18 Pulse Oximetry 94 L 94 L 95 01/24/18 04:00 01/24/18 05:00 01/24/18 06:00 Temperature 99.3 F 99.1 F 98.6 F Pulse Rate 101 H 103 H 102 H Respiratory Rate 18 18 18 Pulse Oximetry 94 L 95 95 01/24/18 07:00 01/24/18 07:49 01/24/18 08:00 Temperature 98.8 F 98.2 F Pulse Rate 100 H 99 H Respiratory Rate 18 18 18 Pulse Oximetry 97 98 97 01/24/18 09:00 01/24/18 10:00 Temperature 98.6 F 98.8 F Pulse Rate 100 H 99 H Respiratory Rate 18 18 Pulse Oximetry 97 96 Intake & Output 01/23/18 01/24/18 01/24/18 18:59 06:59 18:59 Intake Total 2139 / 2139 2128 / 2128 800 / 800 Output Total 2500 / 2500 2775 / 2775 Balance -361 / -361 -647 / -647 800 / 800 Weight 74.3 kg Intake: IV 1700 / 1700 1700 / 1700 800 / 800 Nimbex Inj 100 MG In NS Inj 240 750 / 750 1000 / 1000 250 / 250 ML @ 1 MCG/KG/MIN 14.82 mls/hr IV.CONT TITRATE PRN Rx#: [id number] Versed Inj 100 mg In 100 ml @ 2 100 / 100 100 / 100 100 / 100 MG/HR 2 mls/hr IV.CONT TITRATE PRN Rx#:[id number] Diprivan 1000 mg/100 ml Inj 1, 300 / 300 300 / 300 200 / 200 000 mg In 100 ml @ 5 MCG/KG/MIN 2.585 mls/hr IV.CONT TITRATE PRN Rx#:[id number] Zosyn 4.5 GM Premix 4.5 gm In 200 / 200 200 / 200 100 ml @ 200 mls/hr IV.SIG Q6H VU Rx#:[id number] KCl 40 mEq Premix Inj 40 meq In 100 / 100 100 / 100 100 ml @ 25 mls/hr IV.SIG Q2H PRN Rx#:[id number] fentaNYL 10 mcg/mL Premix Drip 250 / 250 250 / 250 2,500 mcg In 250 ml @ 50 MCG/HR 5 mls/hr IV.SIG TITRATE PRN Rx #:[id number] Tube Feeding 409 / 409 428 / 428 Water Bolus Amount 30 / 30 Output: Stool 0 / 0 0 / 0 Urine Amount (Catheter) 2249 2525 / 2525 Indwelling Urethral Catheter 2249 2525 / 2525 Gastric Drainage 250 / 250 250 / 250 Orogastric Tube 250 / 250 250 / 250 Other: Date of Last Bowel Movement 01/23/18 01/23/18 01/23/18 Result Diagrams: 01/22/18 05:45 01/24/18 04:15 Objective Remarks: GEN: Intubated and sedated, on neuromuscular blockade HEENT: Reactive pupils 2mm, Trachea midline, orotracheal intubation CARDIO: S1-S2 regular, no murmur. Neck: Right IJ central line in place PULM: Orally intubated on mechanical ventilation, scattered rhonchi, no wheezing. Diminished air entry at the right base ABD/GI: Soft, non-distended. No guarding, bowel sounds are active. No tenderness. EXT/MSK: 2+ peripheral edema, warm, adequately perfused. SKIN: No rashes or lesions. Well perfused. Skin blistering over abdominal wall and chest wall NEURO: Sedated, orally intubated on mechanical ventilation. On neuromuscular blockade which limits neuro exam Assessment and Plan - Problem List (1) Heroin overdose Code(s): T40.1X1A - Poisoning by heroin, accidental (unintentional), initial encounter Status: Acute (2) Polysubstance abuse Code(s): F19.10 - Other psychoactive substance abuse, uncomplicated Status: Chronic (3) Cocaine abuse Code(s): F14.10 - Cocaine abuse, uncomplicated Status: Acute (4) Elevated ETOH level Code(s): R78.0 - Finding of alcohol in blood Status: Acute (5) Marijuana abuse Code(s): F12.10 - Cannabis abuse, uncomplicated Status: Acute (6) TORREY (acute kidney injury) Code(s): N17.9 - Acute kidney failure, unspecified Status: Acute (7) Severe sepsis Code(s): A41.9 - Sepsis, unspecified organism; R65.20 - Severe sepsis without septic shock Status: Acute (8) Acute respiratory failure with hypoxia Code(s): J96.01 - Acute respiratory failure with hypoxia Status: Acute (9) Aspiration pneumonia Code(s): J69.0 - Pneumonitis due to inhalation of food and vomit Status: Acute (10) Vomiting Code(s): R11.10 - Vomiting, unspecified Status: Acute (11) Hyperglycemia Code(s): R73.9 - Hyperglycemia, unspecified Status: Acute (12) Protein-calorie malnutrition, moderate Code(s): E44.0 - Moderate protein-calorie malnutrition Status: Acute - Assessment and Plan Plan: NEURO: Heroin overdose Polysubstance abuse (marijuana, opiate, cocaine) Propofol/ versed/ fentanyl for sedation. On Nimbex for neuromuscular blockade Discontinue Nimbex today 01/24/2018 Thiamine/multivitamin supplementation CT head negative Tolerance to narcotic analgesia implies chronic narcotic use On methadone to wean fentanyl. Continue librium 25 mg p.o. twice daily RESP: Acute hypoxemic respiratory failure Acute aspiration pneumonia New right lower lobe pneumonia Intubated in ED 01/05 due to hypoxia. inhaled flolan discontinued on 01/21 Initially on APRV mode which was switched to pressure control inverse ratio mechanical ventilation with Proning on 01/18. Changed to PRVC on 01/21 a.m. in view of elevated PCO2 to ensure adequate tidal volumes. Today PEEP +12, rate 22, FiO2 60%. I:E 1:1 Bronchoscopy/BAL for right lower lobe new infiltrate DuoNeb every 6 hours. Albuterol every [address] chest with dense bilateral basilar consolidations and small right pleural effusion Considerable sputum withdrawn from right lower lobe on 01/16 during bronchoscopy , culture results normal alistair. We will discontinue neuromuscular blockade today CV: Telemetry and BP monitoring in ICU Being diuresed to mobilize fluid Lower extremity venous Dopplers negative for DVTs. F/U 2D echo to assess RV/LV function and for shunting. GI: Continue tube feedings via dobhoff, advance to goal as tolerated. Having high residuals. On Reglan IV. Decrease fentanyl gtt as also on methadone. Zofran prn. FEN/RENAL: TORREY - suspect pre-renal secondary to overdose and sepsis, improved CPK is normal Urine output adequate Lasix 40 mg IV Q6H to mobilize fluid on 01/19. Received Diamox on 01/20 and 01/21 for metabolic alkalosis secondary to diuresis with Lasix. ID: Severe Sepsis secondary to aspiration pneumonia New right lower lobe infiltrate MRSA swab negative Blood cultures from 01/05 growing staph epidermidis in both bottles, repeat cultures sent 01/06 no growth at 1 day Consulted ID for antibiotic management in view of worsening respiratory status/ sepsis. On zosyn IV. Vancomycin discontinued. Restart vancomycin today 01/24/2018 for new right lower lobe infiltrate Ordered akers cultures on 01/22 due to fever and leukocytosis. HEME: No acute hematologic issues aside from leukocytosis.. Coags are normal. ENDO: Acute hyperglycemia Monitor bedside glucose every 6 hours and administer low-dose insulin sliding scale as indicated. Poor diabetic control has been an intermittent problem PROPH: -PPI -SCDs/ lovenox ACCESS: RIJ central line placed 01/18 OVERALL: This patient remains critically ill requiring quite high levels of ventilator support for aspiration pneumonia and heroin drug overdose. His initial response to aggressive medical therapy has been poor, undoubtedly related to chronic debilitation and poor baseline nutritional status. His long- term prognosis is guarded, largely due to concerns about his nutritional and immune status. He initially failed bilevel ventilation but did more poorly on conventional. Now on prone ventilation. He requires constant manipulation of the assessment of his arterial blood gases, fluid removal, and antibiotic adjustment. He remains very unstable from a respiratory standpoint. Critical care time 42 minutes aside from procedures.
[2018-01-24] MEDS ORDERED: Vancomycin Consult Pharmacy OTHER PRN (12:16)
[2018-01-24] MEDS ORDERED: Vancomycin Inj 1,000 MG in Sodium Chlor 0.9% Inj 250 ML IV.SIG ONE (12:16)
--- NOTE | 2018-01-24 14:22 | XR ---
EXAM DATE: 01/24/2018 1:38 PM EST AGE/SEX: 37 years / Male INDICATIONS: Post right bronch. CLINICAL DATA: This is the patient's subsequent encounter. Patient reports that signs and symptoms h ave been present for 4 - 6 days and indicates a pain score of 0/10. MEDICAL/SURGICAL HISTORY: Non-responsive. Non-responsive. COMPARISON: [facility], CHEST 1V SINGLE AP, 01/24/2018. . FINDINGS: The ET tube and right internal jugular central lines are well placed. There appears to be a large bor e NG tube with its tip directed into the stomach. The heart size is normal. There is increased densit y at the lung bases bilaterally being worse on the right. There is silhouetting of the right hemidiap hragm and the lateral aspect of the left hemidiaphragm. There are some prominent interstitial marking s diffusely. A pneumothorax is not seen. CONCLUSION: Diffuse interstitial prominence/disease. Edema could've this appearance. Bibasilar areas of atelectasis or consolidation being worse on the right. Electronically signed by: Yo Brar MD 01/24/2018 2:21 PM EST
[2018-01-25] MEDS: Propofol 1000 mg/100 ml Inj 1,000 MG/100 ML BOTTLE IV.CONT PRN ×5 (00:07→23:02)
[2018-01-25] MEDS: Insulin NovoLOG Aspart Correctional Sugar Inj SQ SCH ×5 (00:43→23:51)
[2018-01-25] MEDS: Oral Hygiene Kit OROPHARYNG SCH ×5 (00:43→23:50)
[2018-01-25] MEDS: Vancomycin Inj 1,500 MG in Sodium Chlor 0.9% Inj 500 ML IV.SIG SCH ×2 (02:52→13:35)
[2018-01-25] MEDS: Methadone 10 MG Tablet PO SCH ×2 (02:52→14:52)
[2018-01-25] MEDS: fentaNYL 10 mcg/mL Premix Drip 2,500 MCG/250 ML BAG IV.SIG PRN ×2 (04:38→23:03)
[2018-01-25] MEDS: Piperacil/Tazo 4.5 GM Premix 4.5 GM/100 ML BAG IV.SIG SCH ×3 (04:38→17:40)
[2018-01-25 05:07] LABS: Hematocrit 33.9 % (39.0-51.0); Hemoglobin 11.8 gm/dL (13.0-17.0); Mean Corpuscular HGB Conc 34.7 % (32.0-36.0); Mean Corpuscular Hemoglobin 32.8 pg (27.0-34.0); Mean Corpuscular Volume 94.5 fL (80.0-100.0); Mean Platelet Volume 8.3 fL (7.0-11.0); Platelet Count 612 th/mm3 (150-450); Red Blood Count 3.59 mil/mm3 (4.50-5.90); Red Cell Distribution Width 13.6 % (11.6-17.2); White Blood Count 14.4 th/mm3 (4.0-11.0)
[2018-01-25 05:17] LABS: ABG Base Excess 10.1 mmol/L (-2-2); ABG PCO2 50 mmHg (38-42); ABG PO2 74 mmHg (61-120)
[2018-01-25 05:47] LABS: Alanine Aminotransferase 29 U/L (12-78); Albumin 2.2 g/dL (3.4-5.0); Alkaline Phosphatase 151 U/L (45-117); Anion Gap 7 meq/L (5-15); Aspartate Aminotransferase 40 U/L (15-37); Blood Urea Nitrogen 15 mg/dL (7-18); Calcium 8.8 mg/dL (8.5-10.1); Carbon Dioxide 33.9 meq/L (21.0-32.0); Chloride 98 meq/L (98-107); Glomerular Filtration Rate Greater Than 89 mL/min (>89); Glucose,Random 119 mg/dL (74-106); Potassium 3.8 meq/L (3.5-5.1); Sodium 139 meq/L (136-145)
--- NOTE | 2018-01-25 05:53 | XR ---
EXAM DATE: 01/25/2018 5:48 AM EST AGE/SEX: 37 years / Male INDICATIONS: Respiratory failure. CLINICAL DATA: This is the patient's subsequent encounter. Patient reports that signs and symptoms h ave been present for 3 weeks and indicates a pain score of Nonresponsive. MEDICAL/SURGICAL HISTORY: . IVDU. Smoker. . Central line. COMPARISON: 01/24/2018. FINDINGS: Single AP view the chest. Endotracheal tube, nasogastric tube, right IJ central venous catheter remai n in place. Persistent elevation of the right hemidiaphragm. Persistent right lower lung consolidatio n versus atelectasis. Persistent left perihilar pulmonary opacity. No significant interval change. No evidence of pneumothorax. CONCLUSION: Bilateral pulmonary opacity again seen along with elevation of the right hemidiaphragm. No significan t interval change. Electronically signed by: Joseph Locke MD 01/25/2018 5:52 AM EST
[2018-01-25] MEDS: Chlorhexidine 0.12% Oral Kit 15 ML UDC OROPHARYNG SCH ×2 (09:07→21:14)
[2018-01-25] MEDS: chlordiazePOXIDE 25 MG Capsule PO SCH (09:08)
[2018-01-25] MEDS: Famotidine PF Inj 20 MG/2 ML Vial IV.PUSH SCH ×2 (09:08→21:14)
[2018-01-25] MEDS: Enoxaparin Inj 40 MG/0.4 ML Syringe SQ SCH (09:08)
[2018-01-25] MEDS: Senna/Docusate Sodium 8.6/50 MG Tablet PO SCH ×2 (09:08→21:14)
[2018-01-25] MEDS: Beneprotein Powder Packet G-TUBE SCH ×3 (09:08→17:40)
--- NOTE | 2018-01-25 10:26 | P.PNCC ---
Subjective Subjective Remarks/Hospital Course: 37-year-old male who is brought to [facility] emergency department after friends contacted [facility] due to decreased mental status with suspected heroin overdose. He had used heroin earlier in the evening. [facility] reportedly found him laying in emesis with a thready pulse. They gave him sequential doses of Narcan to a total of 2.4 mg IV at which point he became more awake and alert. He then had multiple episodes of vomiting in route. NG tube was placed by the paramedics and they aspirated gastric contents and then removed s NG prior to arrival. His room air sats were reportedly 84% and he was placed on NR. Patient told Dr. Lovett that this was his first time using heroin and that he injected it. CXR demonstrated RLL opacity. He was started on Unasyn for aspiration pneumonia and given nebs. He eventually was intubated due to hypoxia with sats in high 80s despite nonrebreather. Transformer Mechanic consulted for admission. 01/06: Remains sedated and intubated, requires PEEP 12 and FiO2 70%, will try to wean these today if tolerated. 01/07: Agitated overnight and this morning, 2 episodes where the patient bit down on ETT, desaturated, and became unstable. Not tolerating pressure support trials. 01/08: Remains sedated, orally intubated on mechanical ventilation. PEEP remains at +12. CT chest done today shows worsening consolidations. Pleural effusion. 01/09: Remains critically ill with severe bilateral lower lobe consolidated pneumonias. Requiring markedly elevated mean airway pressure still. Patient is nutritionally depleted and not responding well to our aggressive medical treatment. 01/10: Continued requirements for markedly elevated fractional inspiratory oxygen concentration. Continued dense consolidation in both lower lobes PEEP reduced to avoid overexpansion of upper lobes. 01/11: Converted to airway pressure release ventilation because of inability to oxygenate adequately. We will probably have to add Flolan. Lengthy discussion with family about the severity of his respiratory problems and pneumonia. 01/12: Some progress but remains with high A-aO2 gradient. ET tube above clavicles; repositioned. Copious foul secretions. High requirement requirements for analgesia and sedation due to alcohol history. Will continue methadone and start scheduled Librium in an attempt to lower the intravenous requirements. 01/13: Remains sedated, orally intubated on mechanical ventilation. 01/14: Remains sedated, orally intubated on mechanical ventilation. Remains on APRV mode. On inhaled Flolan. 01/15: Remains sedated, intubated on AP RV mode mechanical ventilation. Inhaled Flolan titrated down to 30 ng/kg/min. Placed on rotarest bed yesterday. Starting Lasix to mobilize fluid in view of positive fluid balance. 01/16: Dense consolidation right lower lobe causing severe shunting and hypoxemia. He will likely require pronating to drain the basilar lower lobes. Patient remains critically ill with an unrelenting bilateral pneumonia proving refractory to our best antibiotic and ventilatory interventions. 01/17: Persistent shunting through consolidated right lower lobe is producing profound hypoxemia. Presently requiring roto-rest bed and markedly elevated mean airway pressures on mechanical ventilation. Sputum obtained during alveolar lavage of the right lower lobe yesterday is still pending. Patient remains critically ill and generally edematous. 01/18: Not progressing on Roto-Rest bed. Remains on 65% FiO2, inhaled Flolan, AP RV mode mechanical ventilation. We will attempt to place on prone ventilation after neuromuscular blockade and switching to pressure control inverse ratio mode mechanical ventilation. Also placing Dobbhoff to see if he tolerates tube feeds better and will be placing central line 01/19: Placed on prone ventilation on 01/19 after switching to PC/AC PIP+18, PEEP+ 15, Rate 18, I :E 3.5:1, FiO2 65%. FiO2 requirement down to 40% with proning. Remains on inhaled flolan. On neuromuscular blockade. 01/20: Continues on prone ventilation. Flolan being titrated down. Chest x-ray showed significant improvement in aeration bilaterally. 01/21: Remains on prone ventilation. On sedation and neuromuscular blockade. Flolan off since yesterday. O2 sats dropped on attempting to titrate PEEP below 14. Remains on 45-50% FiO2, rate 18, I:E ratio 1.5 :1 01/22: Sedated, orally intubated on mechanical ventilation. Remains on prone ventilation. PCO2 climbing. Changed to PRVC mode, PEEP +12. Increased rate to 24 and tidal volume to 500 this morning in view of elevated PCO2 on ABG. Chest x-ray is essentially clear bilaterally. Obtaining lower extremity venous Dopplers to evaluate for DVT and a 2D echo. 01/23: Remains sedated, orally intubated on neuromuscular blockade. Stopping from ventilation today. On PRVC mode mechanical ventilation tidal volume 450, rate 18, FiO2 40%, PEEP +10. Decreased I time to 1.2 seconds. Gradually advancing Dobbhoff feeds. Plan on stopping neuromuscular blockade later today. 01/24: Intubated sedated remains on neuromuscular blockade. Worsening oxygenation FiO2 up to 60% PEEP increased to 12. Chest x-ray shows right-sided atelectasis versus airspace disease. Bronchoscopy performed and BAL sent. off prone therapy. Mother updated at the bedside 01/25: Patient remains intubated sedation lightened. Eyes are open withdraws lower extremities localizes with left upper extremity slightly withdraws right. Off Nimbex. FiO2 down to 50% PEEP now 10. Persistent right lower lobe infiltrate/effusion. Check CT chest to better evaluate. Status post bronchoscopy yesterday Objective Vital Signs / I&O: Vital Signs 01/24/18 11:00 01/24/18 12:00 01/24/18 13:00 Temperature 99.0 F 98.6 F 98.4 F Pulse Rate 95 H 101 H 96 H Respiratory Rate Pulse Oximetry 100 96 96 01/24/18 14:00 01/24/18 15:00 01/24/18 16:00 Temperature 98.2 F 98.1 F 98.4 F Pulse Rate 96 H 90 88 Respiratory Rate Pulse Oximetry 96 99 98 01/24/18 16:28 01/24/18 16:29 01/24/18 17:00 Temperature 98.6 F Pulse Rate 87 Respiratory Rate 18 18 Pulse Oximetry 100 01/24/18 17:25 01/24/18 18:00 01/24/18 19:00 Temperature 99.1 F 99.7 F H Pulse Rate 94 H 104 H Respiratory Rate 18 18 Pulse Oximetry 100 100 97 01/24/18 19:50 01/24/18 20:00 01/24/18 21:00 Temperature 100.0 F H 100.2 F H Pulse Rate 105 H 111 H Respiratory Rate 19 18 18 Pulse Oximetry 92 L 92 L 95 01/24/18 22:00 01/24/18 23:00 01/24/18 23:33 Temperature 100.6 F H 100.6 F H Pulse Rate 107 H 102 H Respiratory Rate 18 20 18 Pulse Oximetry 98 94 L 95 01/25/18 00:00 01/25/18 01:00 01/25/18 02:00 Temperature 100.0 F H 100.4 F H 100.4 F H Pulse Rate 100 H 114 H 111 H Respiratory Rate 19 18 18 Pulse Oximetry 96 100 94 L 01/25/18 03:00 01/25/18 03:06 01/25/18 04:00 Temperature 100.4 F H 100.0 F H Pulse Rate 109 H 110 H Respiratory Rate 20 18 18 Pulse Oximetry 100 100 94 L 01/25/18 05:00 01/25/18 06:00 01/25/18 07:50 Temperature 100.0 F H 99.9 F H Pulse Rate 103 H 103 H Respiratory Rate 18 18 20 Pulse Oximetry 98 91 L 97 Intake & Output 01/24/18 01/25/18 01/25/18 18:59 06:59 18:59 Intake Total 1886 / 1886 1515 / 1515 100 / 100 Output Total 2500 / 2500 2675 / 2675 Balance -614 / -614 -1160 / -1160 100 / 100 Weight 84.1 kg Intake: IV 1850 / 1850 1265 / 1265 100 / 100 Nimbex Inj 100 MG In NS Inj 240 750 / 750 ML @ 1 MCG/KG/MIN 14.82 mls/hr IV.CONT TITRATE PRN Rx#: [id number] Versed Inj 100 mg In 100 ml @ 2 200 / 200 MG/HR 2 mls/hr IV.CONT TITRATE PRN Rx#:[id number] Diprivan 1000 mg/100 ml Inj 1, 300 / 300 300 / 300 100 / 100 000 mg In 100 ml @ 5 MCG/KG/MIN 2.585 mls/hr IV.CONT TITRATE PRN Rx#:[id number] Zosyn 4.5 GM Premix 4.5 gm In 100 / 100 200 / 200 100 ml @ 200 mls/hr IV.SIG Q6H [facility] Rx#:[id number] Vancomycin Inj 1,000 MG In NS 250 / 250 Inj 250 ML @ 250 mls/hr IV.SIG ONCE ONE Rx#:[id number] Vancomycin Inj 1,500 MG In NS 515 / 515 Inj 500 ML @ 250 mls/hr IV.SIG Q12H [facility] Rx#:[id number] fentaNYL 10 mcg/mL Premix Drip 250 / 250 250 / 250 2,500 mcg In 250 ml @ 50 MCG/HR 5 mls/hr IV.SIG TITRATE PRN Rx #:[id number] Tube Feeding 16 / 16 210 / 210 Tube Irrigant 40 / 40 Water Bolus Amount 20 / 20 Output: Stool 200 / 200 300 / 300 Urine Amount (Catheter) 2250 / 2250 2350 / 2350 Indwelling Urethral Catheter 2249 / 2249 2349 / 2350 Gastric Drainage 50 / 50 25 / 25 Orogastric Tube 50 / 50 25 / 25 Other: Date of Last Bowel Movement 01/24/18 01/25/18 Result Diagrams: 01/25/18 04:45 01/25/18 04:45 Objective Remarks: GEN: Intubated and sedated, off neuromuscular blockade HEENT: Reactive pupils 2mm, Trachea midline, orotracheally intubated CARDIO: S1-S2 regular, no murmur. Neck: Right IJ central line in place PULM: Orally intubated on mechanical ventilation, scattered rhonchi, no wheezing. Diminished air entry at the right base ABD/GI: Soft, non-distended. No guarding, bowel sounds are active. No tenderness. EXT/MSK: 2+ peripheral edema, warm, adequately perfused. SKIN: No rashes or lesions. Well perfused. Skin blistering over abdominal wall and chest wall NEURO: Sedated, orally intubated on mechanical ventilation. Localizes with left upper extremity withdraws bilateral lower extremity Assessment and Plan - Problem List (1) Heroin overdose Code(s): T40.1X1A - Poisoning by heroin, accidental (unintentional), initial encounter Status: Acute (2) Polysubstance abuse Code(s): F19.10 - Other psychoactive substance abuse, uncomplicated Status: Chronic (3) Cocaine abuse Code(s): F14.10 - Cocaine abuse, uncomplicated Status: Acute (4) Elevated ETOH level Code(s): R78.0 - Finding of alcohol in blood Status: Acute (5) Marijuana abuse Code(s): F12.10 - Cannabis abuse, uncomplicated Status: Acute (6) TORREY (acute kidney injury) Code(s): N17.9 - Acute kidney failure, unspecified Status: Acute (7) Severe sepsis Code(s): A41.9 - Sepsis, unspecified organism; R65.20 - Severe sepsis without septic shock Status: Acute (8) Acute respiratory failure with hypoxia Code(s): J96.01 - Acute respiratory failure with hypoxia Status: Acute (9) Aspiration pneumonia Code(s): J69.0 - Pneumonitis due to inhalation of food and vomit Status: Acute (10) Vomiting Code(s): R11.10 - Vomiting, unspecified Status: Acute (11) Hyperglycemia Code(s): R73.9 - Hyperglycemia, unspecified Status: Acute (12) Protein-calorie malnutrition, moderate Code(s): E44.0 - Moderate protein-calorie malnutrition Status: Acute - Assessment and Plan Plan: NEURO: Heroin overdose Polysubstance abuse (marijuana, opiate, cocaine) Propofol/versed/fentanyl for sedation. On Nimbex for neuromuscular blockade Discontinued Nimbex 01/24/2018 Thiamine/multivitamin supplementation CT head negative Tolerance to narcotic analgesia implies chronic narcotic use On methadone to wean fentanyl. Continue librium 25 mg p.o. twice daily RESP: Acute hypoxemic respiratory failure Acute aspiration pneumonia New right lower lobe infiltrate Intubated in ED 01/05 due to hypoxia. inhaled Flolan discontinued on 01/21. Nimbex discontinued 01/24/2018 Initially on APRV mode which was switched to pressure control inverse ratio mechanical ventilation with Proning on 01/18. Changed to PRVC on 01/21 a.m. in view of elevated PCO2 to ensure adequate tidal volumes. Currently on conventional ventilation PRVC AC PEEP +10, rate 18, FiO2 50%. I:E 1 :1.1 Bronchoscopy/BAL for right lower lobe new infiltrate. CT chest to better evaluate effusion DuoNeb every 6 hours. Albuterol every 2 hours as needed. Previous CT chest with dense bilateral basilar consolidations and small right pleural effusion Considerable sputum withdrawn from right lower lobe on 01/16 during bronchoscopy , culture results normal alistair. CV: Telemetry and BP monitoring in ICU Being diuresed to mobilize fluid Lower extremity venous Dopplers negative for DVTs. F/U 2D echo to assess RV/LV function and for shunting. Echo Normal left ventricular size. EF 45-50%. GI: Continue tube feedings via Dobbhoff, advance to goal as tolerated. Having high residuals. On Reglan IV. Decrease fentanyl gtt as also on methadone. Zofran prn. FEN/RENAL: TORREY - suspect pre-renal secondary to overdose and sepsis, improved CPK is normal Urine output adequate Lasix 40 mg IV Q6H to mobilize fluid started on 01/19. Received Diamox on 01/20 and 01/21 for metabolic alkalosis secondary to diuresis with Lasix. ID: Severe Sepsis secondary to aspiration pneumonia New right lower lobe infiltrate MRSA swab negative Blood cultures from 01/05 growing staph epidermidis in both bottles, repeat cultures sent 01/06 no growth at 1 day Consulted ID for antibiotic management in view of worsening respiratory status/ sepsis. On Zosyn IV. Vancomycin discontinued. Restarted vancomycin today 01/24/2018 for new right lower lobe infiltrate Ordered akers cultures on 01/22 due to fever and leukocytosis.-Negative to date HEME: No acute hematologic issues aside from leukocytosis. Coags are normal. ENDO: Acute hyperglycemia Monitor bedside glucose every 6 hours and administer low-dose insulin sliding scale as indicated. Poor diabetic control has been an intermittent problem PROPH: -PPI -SCDs/ lovenox ACCESS: RIJ central line placed 01/18 OVERALL: This patient remains critically ill requiring high levels of ventilator support for aspiration pneumonia and heroin drug overdose. His initial response to aggressive medical therapy has been poor, undoubtedly related to chronic debilitation and poor baseline nutritional status. His long- term prognosis is guarded, largely due to concerns about his nutritional and immune status. He initially failed bilevel ventilation but did more poorly on conventional. Improved on prone ventilation, now off. He remains very unstable from a respiratory standpoint. Critical care time 40 minutes aside from procedures. Code Status: Full
--- NOTE | 2018-01-25 18:11 | P.PNID ---
Subjective Remarks: ID X cover chart was reviewed 37-year-old white male who was brought in to the emergency department when he was found down by a friend. The patient was noted to have overdosed on drugs. He was noted to have used IV heroin. In the emergency department, his temperature was normal. Chest x-ray was performed and showed an elevation of the right hemidiaphragm and right lower lobe consolidation versus atelectasis and small to moderate-sized right pleural effusion. The white blood cell count was elevated at 14.3. Blood cultures on admission had Staph coagulase negative. low grade fevers noted in the last 48 hrs MIld leukocytosis On vent, CPAP persistent infiltrate, but BAL from RLL non purulent and NGTD @ 24 hrs Antibiotics: zosyn vanco Past Medical History: PAST MEDICAL HISTORY: Intravenous drug abuse. Allergies/Adverse Reactions: Allergies No Allergy Information Available Allergy (Verified 01/20/18 01:00) UTO Objective Vital Signs 01/24/18 19:00 01/24/18 19:50 01/24/18 20:00 Temperature 99.7 F H 100.0 F H Pulse Rate 104 H 105 H Respiratory Rate 18 19 18 Pulse Oximetry 97 92 L 92 L 01/24/18 21:00 01/24/18 22:00 01/24/18 23:00 Temperature 100.2 F H 100.6 F H 100.6 F H Pulse Rate 111 H 107 H 102 H Respiratory Rate 18 18 20 Pulse Oximetry 95 98 94 L 01/24/18 23:33 01/25/18 00:00 01/25/18 01:00 Temperature 100.0 F H 100.4 F H Pulse Rate 100 H 114 H Respiratory Rate 18 19 18 Pulse Oximetry 95 96 100 01/25/18 02:00 01/25/18 03:00 01/25/18 03:06 Temperature 100.4 F H 100.4 F H Pulse Rate 111 H 109 H Respiratory Rate 18 20 18 Pulse Oximetry 94 L 100 100 01/25/18 04:00 01/25/18 05:00 01/25/18 06:00 Temperature 100.0 F H 100.0 F H 99.9 F H Pulse Rate 110 H 103 H 103 H Respiratory Rate 18 18 18 Pulse Oximetry 94 L 98 91 L 01/25/18 07:00 01/25/18 07:50 01/25/18 08:00 Temperature 99.3 F 99.5 F Pulse Rate 102 H 105 H Respiratory Rate 18 20 19 Pulse Oximetry 96 97 95 01/25/18 09:00 01/25/18 10:00 01/25/18 11:00 Temperature 99.7 F H 99.7 F H 99.9 F H Pulse Rate 109 H 104 H 105 H Respiratory Rate 24 16 16 Pulse Oximetry 95 95 93 L 01/25/18 11:15 01/25/18 12:00 01/25/18 13:00 Temperature 99.9 F H 99.9 F H Pulse Rate 106 H 107 H 112 H Respiratory Rate 16 16 25 H Pulse Oximetry 93 L 93 L 93 L 01/25/18 14:00 01/25/18 15:00 01/25/18 16:00 Temperature 99.5 F 99.5 F 99.5 F Pulse Rate 103 H 107 H 104 H Respiratory Rate 16 17 16 Pulse Oximetry 95 97 92 L 01/25/18 17:00 01/25/18 17:03 01/25/18 18:00 Temperature 99.3 F 99.3 F Pulse Rate 104 H 106 H Respiratory Rate 12 12 34 H Pulse Oximetry 94 L 93 L 89 L Intake & Output 01/24/18 01/25/18 01/25/18 18:59 06:59 18:59 Intake Total 1886 / 1886 1515 / 1515 1797 / 1797 Output Total 2500 / 2500 2675 / 2675 2350 / 2350 Balance -614 / -614 -1160 / -1160 -553 / -553 Weight 84.1 kg Intake: IV 1850 / 1850 1265 / 1265 815 / 815 Nimbex Inj 100 MG In NS Inj 240 750 / 750 ML @ 1 MCG/KG/MIN 14.82 mls/hr IV.CONT TITRATE PRN Rx#: [id number] Versed Inj 100 mg In 100 ml @ 2 200 / 200 MG/HR 2 mls/hr IV.CONT TITRATE PRN Rx#:[id number] Diprivan 1000 mg/100 ml Inj 1, 300 / 300 300 / 300 200 / 200 000 mg In 100 ml @ 5 MCG/KG/MIN 2.585 mls/hr IV.CONT TITRATE PRN Rx#:[id number] Zosyn 4.5 GM Premix 4.5 gm In 100 / 100 200 / 200 100 / 100 100 ml @ 200 mls/hr IV.SIG Q6H [facility] Rx#:[id number] Vancomycin Inj 1,000 MG In NS 250 / 250 Inj 250 ML @ 250 mls/hr IV.SIG ONCE ONE Rx#:[id number] Vancomycin Inj 1,500 MG In NS 515 / 515 515 / 515 Inj 500 ML @ 250 mls/hr IV.SIG Q12H [facility] Rx#:[id number] fentaNYL 10 mcg/mL Premix Drip 250 / 250 250 / 250 2,500 mcg In 250 ml @ 50 MCG/HR 5 mls/hr IV.SIG TITRATE PRN Rx #:[id number] Tube Feeding 16 / 16 210 / 210 202 / 202 Tube Irrigant 40 / 40 Water Bolus Amount 20 / 20 Other 780 / 780 Output: Stool 200 / 200 300 / 300 450 / 450 Urine Amount (Catheter) 2250 / 2250 2350 / 2350 1750 / 1750 Indwelling Urethral Catheter 2250 / 2250 2350 / 2350 1750 / 1750 Gastric Drainage 50 / 50 25 / 25 150 / 150 Orogastric Tube 50 / 50 25 / 25 150 / 150 Other: Date of Last Bowel Movement 01/24/18 01/25/18 01/25/18 # Incontinent Bowel Movements 2 01/24/18 13:00 Bronchial - Right Lower Lobe Gram Stain - Final 01/24/18 13:00 Bronchial - Right Lower Lobe Bronchial Culture - Preliminary No growth in 24 hours 01/22/18 13:15 Blood - Peripheral Aerobic Blood Culture - Preliminary No growth in 3 days 01/22/18 13:15 Blood - Peripheral Anaerobic Blood Culture - Preliminary No growth in 3 days 01/22/18 13:24 Blood - Peripheral Aerobic Blood Culture - Preliminary No growth in 3 days 01/22/18 13:24 Blood - Peripheral Anaerobic Blood Culture - Preliminary No growth in 3 days 01/22/18 13:30 Sputum - Endotracheal Gram Stain - Final 01/22/18 13:30 Sputum - Endotracheal Sputum Culture - Final Heavy growth normal respiratory alistair Lab - Hematology Results 01/25/18 04:45 WBC 14.4 H RBC 3.59 L Hgb 11.8 L Hct 33.9 L MCV 94.5 MCH 32.8 MCHC 34.7 RDW 13.6 Plt Count 612 H MPV 8.3 Lab - Chemistry Results 01/24/18 01/24/18 01/24/18 00:02 04:15 14:51 Sodium 139 Potassium 3.5 D Chloride 99 Carbon Dioxide 35.6 H Anion Gap 4 L BUN 17 Creatinine 0.77 Estimated GFR Greater than 89 POC Glucose 109 90 Random Glucose 108 H Calcium 8.5 Total Bilirubin 0.5 AST 44 H ALT 31 Alkaline Phosphatase 130 H Total Protein 7.0 D Albumin 2.2 L 01/25/18 01/25/18 01/25/18 00:40 04:45 12:59 Sodium 139 Potassium 3.8 Chloride 98 Carbon Dioxide 33.9 H Anion Gap 7 BUN 15 Creatinine 0.68 Estimated GFR Greater than 89 POC Glucose 117 H 120 H Random Glucose 119 H Calcium 8.8 Total Bilirubin 0.7 AST 40 H ALT 29 Alkaline Phosphatase 151 H Total Protein 7.0 Albumin 2.2 L 01/25/18 17:32 Sodium Potassium Chloride Carbon Dioxide Anion Gap BUN Creatinine Estimated GFR POC Glucose 119 H Random Glucose Calcium Total Bilirubin AST ALT Alkaline Phosphatase Total Protein Albumin Imaging: ITS Impressions Head CT 01/05/18 05:01 CONCLUSION: 1. No acute intracranial findings. 2. Air-fluid levels in the right maxillary and sphenoid sinuses suggesting possible acute sinusitis versus air-fluid levels related to intubation.. . Chest CT 01/08/18 00:00 CONCLUSION: 1. Increasing airspace disease especially in both upper lobes. 2. Persistent dense consolidation in the lower lobes without significant improvement. 3. Increasing right pleural effusion. Abdomen X-Ray 01/20/18 05:00 CONCLUSION: Feeding tube distal tip is either in the first portion of the duodenum or pylorus region of the stomach. Venous Doppler Study 01/22/18 00:00 CONCLUSION: No venous thrombosis is identified within either upper extremity. Chest X-Ray 01/25/18 06:00 CONCLUSION: Bilateral pulmonary opacity again seen along with elevation of the right hemidiaphragm. No significant interval change. Physical Exam: PHYSICAL EXAMINATION: Limited by patient being on Rotobed. GENERAL: On the ventilator. Unresponsive. HEENT: Oropharynx intubated. NEECK: trach in midline no JVD LUNGS: Breath sounds are diminished.. HEART: Regular S1, S2, without murmurs, rubs or gallops. ABDOMEN: soft not tender inconmtinent of luiquid brown stool dignishield in place EXTREMITIES: No clubbing or cyanosis Promionent nopn pitting R forearm edema No embolic lesions visible. SKIN: No diffuse rash. NEUROLOGIC: Unable to assess. PSYCHIATRIC: Unable to assess. Assessment and Plan - Plan IMPRESSION: 1. Pneumonia. 2. Bacteremia due to Staphylococcus coag negative. Repeat blood cultures have no growth. This possibly could be contamination. 3. Acute respiratory failure. 4. Intravenous drug use. 5. Probable aspiration. Chest x-ray shows improved aeration. ? R UE DVT abx associated diarrhea, r/o c.diff RECOMMENDATIONS: 1. complete piperacillin/tazobactam. 2. US RUE 3. chk stool for c.diff CT to follow dDr Dontfraid is back in am
--- NOTE | 2018-01-25 22:57 | CT ---
EXAM DATE: 01/25/2018 10:47 PM EST AGE/SEX: 37 years / Male INDICATIONS: Evaluate pleural effusions. CLINICAL DATA: This is the patient's subsequent encounter. Patient reports that signs and symptoms h ave been present for 2 days and indicates a pain score of Nonresponsive. MEDICAL/SURGICAL HISTORY: . IV drug user None. RADIATION DOSE: 9.40 CTDI (mGy) COMPARISON: [facility] – [place], CT CHEST W/O CONTRAST, 01/08/2018. . TECHNIQUE: Multiple contiguous axial images were obtained through the chest without contrast. Image s were obtained in suspended respiration using multiple row detector helical technique. Using [place] exposure control and adjustment of the mA and/or kV according to patient size, radiation dose was kept as low as reasonably achievable to obtain optimal diagnostic quality images. DICOM format imag e data is available electronically for review and comparison. FINDINGS: Comparison is January 08. In the upper lobes airspace disease has improved bilaterally. There is als o overall improvement in airspace consolidation at both lung bases. Dense consolidation and atelectas is remains at the bases however with air bronchograms. Small bilateral pleural effusions have improve d. Nasogastric tube and feeding tube are seen entering the stomach. Right central line in superior vena cava. No acute findings in the upper abdomen. Spleen appears enlarged. CONCLUSION: 1. Small bilateral pleural effusions overall improved from January 08. 2. Improving bilateral airspace consolidation in the lungs. 3. Endotracheal tube, nasogastric tube and feeding tube and right central line in good position. Electronically signed by: Kehinde Olmstead MD 01/25/2018 10:56 PM EST
[2018-01-26] MEDS: Oral Hygiene Kit OROPHARYNG SCH ×4 (03:37→23:29)
[2018-01-26] MEDS: Methadone 10 MG Tablet PO SCH ×2 (03:40→14:31)
[2018-01-26] MEDS: Propofol 1000 mg/100 ml Inj 1,000 MG/100 ML BOTTLE IV.CONT PRN ×4 (03:45→22:21)
[2018-01-26 05:28] LABS: ABG Base Excess 11.8 mmol/L (-2-2); ABG PCO2 47 mmHg (38-42); ABG PO2 104 mmHg (61-120)
[2018-01-26 05:34] LABS: Alanine Aminotransferase 24 U/L (12-78); Albumin 2.3 g/dL (3.4-5.0); Alkaline Phosphatase 133 U/L (45-117); Anion Gap 9 meq/L (5-15); Aspartate Aminotransferase 29 U/L (15-37); Blood Urea Nitrogen 16 mg/dL (7-18); Calcium 8.8 mg/dL (8.5-10.1); Carbon Dioxide 36.7 meq/L (21.0-32.0); Chloride 94 meq/L (98-107); Glomerular Filtration Rate Greater Than 89 mL/min (>89); Glucose,Random 116 mg/dL (74-106); Sodium 140 meq/L (136-145); Total Protein 7.2 g/dL (6.4-8.2)
[2018-01-26 05:39] LABS: Potassium 2.9 meq/L (3.5-5.1)
[2018-01-26] MEDS: Insulin NovoLOG Aspart Correctional Sugar Inj SQ SCH ×4 (05:39→23:44)
[2018-01-26] MEDS: Potassium Chlor 40 mEq Premix 40 MEQ/100 ML PIGGYBACK IV.SIG PRN ×3 (05:46→18:53)
--- NOTE | 2018-01-26 08:02 | P.PNCC ---
Subjective Subjective Remarks/Hospital Course: 37-year-old male who is brought to [facility] emergency department after friends contacted [facility] due to decreased mental status with suspected heroin overdose. He had used heroin earlier in the evening. [facility] reportedly found him laying in emesis with a thready pulse. They gave him sequential doses of Narcan to a total of 2.4 mg IV at which point he became more awake and alert. He then had multiple episodes of vomiting in route. NG tube was placed by the paramedics and they aspirated gastric contents and then removed s NG prior to arrival. His room air sats were reportedly 84% and he was placed on NR. Patient told Dr. Lovett that this was his first time using heroin and that he injected it. CXR demonstrated RLL opacity. He was started on Unasyn for aspiration pneumonia and given nebs. He eventually was intubated due to hypoxia with sats in high 80s despite nonrebreather. Project Associate consulted for admission. 01/06: Remains sedated and intubated, requires PEEP 12 and FiO2 70%, will try to wean these today if tolerated. 01/07: Agitated overnight and this morning, 2 episodes where the patient bit down on ETT, desaturated, and became unstable. Not tolerating pressure support trials. 01/08: Remains sedated, orally intubated on mechanical ventilation. PEEP remains at +12. CT chest done today shows worsening consolidations. Pleural effusion. 01/09: Remains critically ill with severe bilateral lower lobe consolidated pneumonias. Requiring markedly elevated mean airway pressure still. Patient is nutritionally depleted and not responding well to our aggressive medical treatment. 01/10: Continued requirements for markedly elevated fractional inspiratory oxygen concentration. Continued dense consolidation in both lower lobes PEEP reduced to avoid overexpansion of upper lobes. 01/11: Converted to airway pressure release ventilation because of inability to oxygenate adequately. We will probably have to add Flolan. Lengthy discussion with family about the severity of his respiratory problems and pneumonia. 01/12: Some progress but remains with high A-aO2 gradient. ET tube above clavicles; repositioned. Copious foul secretions. High requirement requirements for analgesia and sedation due to alcohol history. Will continue methadone and start scheduled Librium in an attempt to lower the intravenous requirements. 01/13: Remains sedated, orally intubated on mechanical ventilation. 01/14: Remains sedated, orally intubated on mechanical ventilation. Remains on APRV mode. On inhaled Flolan. 01/15: Remains sedated, intubated on AP RV mode mechanical ventilation. Inhaled Flolan titrated down to 30 ng/kg/min. Placed on rotarest bed yesterday. Starting Lasix to mobilize fluid in view of positive fluid balance. 01/16: Dense consolidation right lower lobe causing severe shunting and hypoxemia. He will likely require pronating to drain the basilar lower lobes. Patient remains critically ill with an unrelenting bilateral pneumonia proving refractory to our best antibiotic and ventilatory interventions. 01/17: Persistent shunting through consolidated right lower lobe is producing profound hypoxemia. Presently requiring roto-rest bed and markedly elevated mean airway pressures on mechanical ventilation. Sputum obtained during alveolar lavage of the right lower lobe yesterday is still pending. Patient remains critically ill and generally edematous. 01/18: Not progressing on Roto-Rest bed. Remains on 65% FiO2, inhaled Flolan, AP RV mode mechanical ventilation. We will attempt to place on prone ventilation after neuromuscular blockade and switching to pressure control inverse ratio mode mechanical ventilation. Also placing Dobbhoff to see if he tolerates tube feeds better and will be placing central line 01/19: Placed on prone ventilation on 01/19 after switching to PC/AC PIP+18, PEEP+ 15, Rate 18, I :E 3.5:1, FiO2 65%. FiO2 requirement down to 40% with proning. Remains on inhaled flolan. On neuromuscular blockade. 01/20: Continues on prone ventilation. Flolan being titrated down. Chest x-ray showed significant improvement in aeration bilaterally. 01/21: Remains on prone ventilation. On sedation and neuromuscular blockade. Flolan off since yesterday. O2 sats dropped on attempting to titrate PEEP below 14. Remains on 45-50% FiO2, rate 18, I:E ratio 1.5 :1 01/22: Sedated, orally intubated on mechanical ventilation. Remains on prone ventilation. PCO2 climbing. Changed to PRVC mode, PEEP +12. Increased rate to 24 and tidal volume to 500 this morning in view of elevated PCO2 on ABG. Chest x-ray is essentially clear bilaterally. Obtaining lower extremity venous Dopplers to evaluate for DVT and a 2D echo. 01/23: Remains sedated, orally intubated on neuromuscular blockade. Stopping from ventilation today. On PRVC mode mechanical ventilation tidal volume 450, rate 18, FiO2 40%, PEEP +10. Decreased I time to 1.2 seconds. Gradually advancing Dobbhoff feeds. Plan on stopping neuromuscular blockade later today. 01/24: Intubated sedated remains on neuromuscular blockade. Worsening oxygenation FiO2 up to 60% PEEP increased to 12. Chest x-ray shows right-sided atelectasis versus airspace disease. Bronchoscopy performed and BAL sent. off prone therapy. Mother updated at the bedside 01/25: Patient remains intubated sedation lightened. Eyes are open withdraws lower extremities localizes with left upper extremity slightly withdraws right. Off Nimbex. FiO2 down to 50% PEEP now 10. Persistent right lower lobe infiltrate/effusion. Check CT chest to better evaluate. Status post bronchoscopy yesterday 01/26: Remains intubated sedated remains off Nimbex. More awake eyes are open spontaneously moving upper extremities though generalized weakness persist. Weaker on the lower extremity. FiO2 requirement has increased overnight now 55 % PEEP at 10. We will proceed with tracheostomy with general surgery Dr. Ivey Objective Vital Signs / I&O: Vital Signs 01/25/18 09:00 01/25/18 10:00 01/25/18 11:00 Temperature 99.7 F H 99.7 F H 99.9 F H Pulse Rate 109 H 104 H 105 H Respiratory Rate 24 16 16 Blood Pressure Pulse Oximetry 95 95 93 L 01/25/18 11:15 01/25/18 12:00 01/25/18 13:00 Temperature 99.9 F H 99.9 F H Pulse Rate 106 H 107 H 112 H Respiratory Rate 16 16 25 H Blood Pressure Pulse Oximetry 93 L 93 L 93 L 01/25/18 14:00 01/25/18 15:00 01/25/18 16:00 Temperature 99.5 F 99.5 F 99.5 F Pulse Rate 103 H 107 H 104 H Respiratory Rate 16 17 16 Blood Pressure Pulse Oximetry 95 97 92 L 01/25/18 17:00 01/25/18 17:03 01/25/18 18:00 Temperature 99.3 F 99.3 F Pulse Rate 104 H 106 H Respiratory Rate 12 12 34 H Blood Pressure Pulse Oximetry 94 L 93 L 89 L 01/25/18 19:00 01/25/18 20:00 01/25/18 21:00 Temperature 99.3 F 99.5 F 99.9 F H Pulse Rate 103 H 102 H 103 H Respiratory Rate 17 19 17 Blood Pressure Pulse Oximetry 89 L 88 L 92 L 01/25/18 22:00 01/25/18 22:22 01/25/18 22:41 Temperature 99.5 F Pulse Rate 100 H 105 H Respiratory Rate 16 22 Blood Pressure 142/92 H Pulse Oximetry 88 L 97 99 01/25/18 23:00 01/25/18 23:26 01/26/18 00:00 Temperature 99.7 F H 99.7 F H 99.9 F H Pulse Rate 107 H 105 H 108 H Respiratory Rate 24 19 21 Blood Pressure 141/81 H 155/88 H Pulse Oximetry 90 L 87 L 88 L 01/26/18 00:03 01/26/18 01:00 01/26/18 02:00 Temperature 99.9 F H 99.9 F H Pulse Rate 109 H 109 H 102 H Respiratory Rate 18 18 16 Blood Pressure 161/99 H 148/80 H Pulse Oximetry 94 L 94 L 01/26/18 03:00 01/26/18 04:00 01/26/18 04:17 Temperature 99.7 F H 99.7 F H Pulse Rate 103 H 100 H Respiratory Rate 16 16 16 Blood Pressure 142/91 H 133/80 Pulse Oximetry 100 95 94 L 01/26/18 05:00 01/26/18 06:00 Temperature 99.1 F 98.8 F Pulse Rate 97 H 104 H Respiratory Rate 16 16 Blood Pressure 134/82 138/81 Pulse Oximetry 95 93 L Intake & Output 01/25/18 01/26/18 01/26/18 18:59 06:59 18:59 Intake Total 1897 / 1897 377 / 377 Output Total 2350 / 2350 2486 / 2486 Balance -453 / -453 -2109 / -2109 Weight 76.8 kg Intake: IV 915 / 915 200 / 200 Diprivan 1000 mg/100 ml Inj 1, 200 / 200 200 / 200 000 mg In 100 ml @ 5 MCG/KG/MIN 2.585 mls/hr IV.CONT TITRATE PRN Rx#:[id number] Zosyn 4.5 GM Premix 4.5 gm In 200 / 200 100 ml @ 200 mls/hr IV.SIG Q6H VU Rx#:[id number] Vancomycin Inj 1,500 MG In NS 515 / 515 Inj 500 ML @ 250 mls/hr IV.SIG Q12H [facility] Rx#:[id number] Tube Feeding 202 / 202 117 / 117 Tube Irrigant 60 / 60 Other 780 / 780 Output: Stool 450 / 450 111 / 111 Urine Amount (Catheter) 1750 / 1750 2375 / 2375 Indwelling Urethral Catheter 1750 / 1750 2375 / 2375 Gastric Drainage 150 / 150 Orogastric Tube 150 / 150 Other: Date of Last Bowel Movement 01/25/18 01/25/18 # Incontinent Bowel Movements 2 Result Diagrams: 01/25/18 04:45 01/26/18 04:50 Objective Remarks: GEN: Intubated and sedated, off neuromuscular blockade HEENT: Reactive pupils 2mm, Trachea midline, orotracheally intubated CARDIO: S1-S2 regular, no murmur. Neck: Right IJ central line in place PULM: Orally intubated on mechanical ventilation, scattered rhonchi, no wheezing. PRVC PEEP 10, FiO2 55% ABD/GI: Soft, non-distended. No guarding, bowel sounds are active. No tenderness. EXT/MSK: 2+ peripheral edema, warm, adequately perfused. SKIN: No rashes or lesions. Well perfused. Skin blistering over abdominal wall and chest wall NEURO: Sedated, orally intubated on mechanical ventilation. Localizes with left upper extremity weakly withdraws bilateral lower extremity Assessment and Plan - Problem List (1) Heroin overdose Code(s): T40.1X1A - Poisoning by heroin, accidental (unintentional), initial encounter Status: Acute (2) Polysubstance abuse Code(s): F19.10 - Other psychoactive substance abuse, uncomplicated Status: Chronic (3) Cocaine abuse Code(s): F14.10 - Cocaine abuse, uncomplicated Status: Acute (4) Elevated ETOH level Code(s): R78.0 - Finding of alcohol in blood Status: Acute (5) Marijuana abuse Code(s): F12.10 - Cannabis abuse, uncomplicated Status: Acute (6) TORREY (acute kidney injury) Code(s): N17.9 - Acute kidney failure, unspecified Status: Acute (7) Severe sepsis Code(s): A41.9 - Sepsis, unspecified organism; R65.20 - Severe sepsis without septic shock Status: Acute (8) Acute respiratory failure with hypoxia Code(s): J96.01 - Acute respiratory failure with hypoxia Status: Acute (9) Aspiration pneumonia Code(s): J69.0 - Pneumonitis due to inhalation of food and vomit Status: Acute (10) Vomiting Code(s): R11.10 - Vomiting, unspecified Status: Acute (11) Hyperglycemia Code(s): R73.9 - Hyperglycemia, unspecified Status: Acute (12) Protein-calorie malnutrition, moderate Code(s): E44.0 - Moderate protein-calorie malnutrition Status: Acute - Assessment and Plan Plan: NEURO: Heroin overdose Polysubstance abuse (marijuana, opiate, cocaine) Critical illness neuromyopathy Propofol/versed/fentanyl for sedation. Discontinued Nimbex 01/24/2018 Thiamine/multivitamin supplementation CT head negative. Tolerance to narcotic analgesia implies chronic narcotic use On methadone to wean fentanyl. Continue librium 25 mg p.o. twice daily PT/OT daily RESP: Acute hypoxemic respiratory failure Acute aspiration pneumonia New right lower lobe infiltrate Intubated in ED 01/05 due to hypoxia. inhaled Flolan discontinued on 01/21. Nimbex discontinued 01/24/2018 Initially on APRV mode which was switched to pressure control inverse ratio mechanical ventilation with Proning on 01/18. Changed to PRVC on 01/21 a.m. in view of elevated PCO2 to ensure adequate tidal volumes. Currently on conventional ventilation PRVC AC PEEP +10, rate 18, FiO2 55%. Bronchoscopy/BAL for right lower lobe new infiltrate. CT chest -bibasilar consolidation DuoNeb every 6 hours. Albuterol every 2 hours as needed. Previous CT chest with dense bilateral basilar consolidations and small right pleural effusion Considerable sputum withdrawn from right lower lobe on 01/16 during bronchoscopy , culture results normal alistair. Tracheostomy today with general surgery CV: Telemetry and BP monitoring in ICU Being diuresed to mobilize fluid Lower extremity venous Dopplers negative for DVTs. F/U 2D echo to assess RV/LV function and for shunting. Echo Normal left ventricular size. EF 45-50%. GI: Continue tube feedings via Dobbhoff, advance to goal as tolerated. Having high residuals. Holding tube feeds for tracheostomy On Reglan IV. Zofran prn. FEN/RENAL: TORREY - suspect pre-renal secondary to overdose and sepsis, improved CPK is normal Urine output adequate Lasix 40 mg IV Q6H to mobilize fluid started on 01/19. Received Diamox on 01/20 and 01/21 for metabolic alkalosis secondary to diuresis with Lasix. ID: Severe Sepsis secondary to aspiration pneumonia Right lower lobe infiltrate MRSA swab negative Blood cultures from 01/05 growing staph epidermidis in both bottles, repeat cultures sent 01/06 no growth at 1 day Consulted ID for antibiotic management in view of worsening respiratory status/ sepsis. On Zosyn IV. Vancomycin discontinued. Restarted vancomycin 01/24/2018 for new right lower lobe infiltrate-if bronc cultures negative will discontinue- negative to date Ordered akers cultures on 01/22 due to fever and leukocytosis.-Negative to date HEME: No acute hematologic issues aside from leukocytosis. Coags are normal. ENDO: Acute hyperglycemia Monitor bedside glucose every 6 hours and administer low-dose insulin sliding scale as indicated. Poor diabetic control has been an intermittent problem PROPH: -PPI -SCDs/ lovenox-held for trach ACCESS: RIJ central line placed 01/18-DC after establishing PIV OVERALL: This patient remains critically ill requiring high levels of ventilator support for aspiration pneumonia and heroin drug overdose. His initial response to aggressive medical therapy has been poor, undoubtedly related to chronic debilitation and poor baseline nutritional status. His long- term prognosis is guarded, largely due to concerns about his nutritional and immune status. He initially failed bilevel ventilation but did more poorly on conventional. Improved on prone ventilation, now on conventional PRVC/AC. He remains very unstable from a respiratory standpoint. Critical care time 40 minutes aside from procedures.
[2018-01-26] MEDS: Beneprotein Powder Packet G-TUBE SCH ×3 (08:27→17:37)
[2018-01-26] MEDS: Famotidine PF Inj 20 MG/2 ML Vial IV.PUSH SCH ×2 (08:27→20:59)
[2018-01-26] MEDS: chlordiazePOXIDE 25 MG Capsule PO SCH (08:27)
[2018-01-26] MEDS: Senna/Docusate Sodium 8.6/50 MG Tablet PO SCH ×2 (08:27→20:59)
[2018-01-26] MEDS: Chlorhexidine 0.12% Oral Kit 15 ML UDC OROPHARYNG SCH ×2 (08:28→20:59)
--- NOTE | 2018-01-26 10:20 | P.PCN ---
Date of procedure: 01/26/18 Pre-op diagnosis: Acute hypoxemic respiratory failure Post-op diagnosis: same Procedure: Procedure: fiberoptic bronchoscopy for guiding percutaneous tracheostomy Informed consent obtained from family and documented in chart Anesthesia used patient is on continuous propofol, fentanyl and Versed, rocuronium IV push Procedure: Patient was placed on 100% oxygen via ET tube/mechanical ventilator. After ensuring adequate sedation/analgesia/ neuromuscular blockade, fiberoptic bronchoscope was inserted via adapter on ET tube and advanced into the trachea upto the jhony. Following this the ET tube was withdrawn to the 20 cm joe at the teeth to facilitate percutaneous tracheostomy. Percutaneous dilational tracheostomy performed by Dr. Ivey-see separate procedure note. Introduction of the Angiocath followed by guidewire placement and punch dilation followed by Blue Rhino dilation and insertion of the tracheostomy tube loaded on 28 Japanese dilator all visualized on video monitor. No visible injury to the posterior wall. Subsequently bronchoscope was removed from the ET tube and placed into the new tracheostomy and confirmed placement by visualizing main jhony. Patient tolerated procedure well Anesthesia: VELMA Surgeon: Taqueria Ram Estimated blood loss (mL): 0 Pathology: none sent Condition: critical Disposition: ICU
--- NOTE | 2018-01-26 10:28 | P.OP ---
- Preoperative Diagnosis (1) Ventilator dependent - Postoperative Diagnosis (1) Tracheostomy in place (2) Ventilator dependent Date of procedure: 01/26/18 Procedure: DATE OF PROCEDURE January 26 PREOP DIAGNOSIS: ventilator dependence POSTOP DIAGNOSIS: ventilator dependence PROCEDURE; Percutaneous Tracheostomy with bronchoscopic assistance. ANESTHESIA: IV sedation BRONCHOSCOPY done by [Dr. Rma] ATTENDING SURGEON: Kehinde Ivey M.D. DETAILS of PROCEDURE: Patient was in the intensive care unit on the ventilator. Patient was identified. Routine time out was performed. Neck was prepped with Betadine that was in the tracheostomy kit. Trachea was identified in the midline 2 fingerbreadths above the sternal notch. Area was anesthetized with the lidocaine supply within the tracheostomy Kit. 5mm horizontal incision is made. Angiocath was placed into the trachea. After air return a wire was threaded through the Angiocath. This was done under videoscopic surveillance by bronchoscopy. The blue rhino punch was then used to dilate up the tracheal track. Blue Rhino was then placed over the guidewire to dilate up the tracheal tract. The #8 Shiley tracheostomy was then placed over the Blue Rhino into the trachea. The Blue Rhino and the guidewire were removed. The tracheostomy was secured in place with the suture supply within the tracheostomy kit. Bronchoscopic evaluation showed the tracheostomy tube in good position with minimal bleeding. Sutured and dressing applied The patient was placed the on the ventilator in preprocedure state. Kehinde Ivey M.D. FACS. Surgeon: Kehinde Ivey MD Estimated blood loss (mL): 5
[2018-01-26] MEDS ORDERED: RESP: Racemic Epinephrine 2.25% 0.5 ML Neb ONE (10:39)
--- NOTE | 2018-01-26 10:44 | P.CONGI ---
History of Present Illness Consult date: 01/26/18 Consult reason: PEG tube placement Chief complaint: Respiratory Failure s/p Heroin Overdose History of Present Illness: This patient is a 37-year-old male who was brought to [place] emergency room post heroin overdose. Patient is now post placement of tracheostomy and is mechanically ventilated. Sinus tach in the 110's on cardiac rehabilitation program director blood pressure 114/68 patient currently with 95-96% saturation. Propofol and fentanyl currently infusing. Patient has NG tube in place with Oxepa infusing at 20 mL's per hour. Dignity shield in place with moderate amount of brown stool noted. Our service has been consulted to evaluate patient for PEG tube placement. Review of Systems All other systems reviewed negative except as stated in HPI PMFSH - History History Provided By: Family Member, Medical Record - Medical / Surgical Hx Neg / Unobtainable Medical Problems Denied: Unable to Obtain - Medical History Medical History: Medical History (Last Reviewed 01/26/18 @ 08:16 by Minerva Hoover) IVDU (intravenous drug user) Patient denies medical problems - Surgical History Surgical History: Surgical History (Last Reviewed 01/26/18 @ 08:16 by Minerva Hoover) No history of previous surgery - Tobacco History Second Hand Smoke Exposure: Yes Tobacco Use In Past 30 Days: Yes Smoking Status: Current every day smoker Tobacco Type: Cigarettes - Alcohol History How Often Do You Have a Drink Containing Alcohol: 4 or more times a week - Substance Use History Substance History: Active Abuse - Substance Use Type LSD, Mushrooms Status: Active Route Used: By Mouth, Inhalation, Intravenously Frequency: weekly Last Used: 6 days ago - Travel History Recent Travel in the [facility] Within the Last 8 Weeks: Yes Recent Travel Out of the Country Within the Last 8 Weeks: No - Immunization History Tetanus Immunization: <5 Years Hx Influenza Vaccine This Season: No Medications and Allergies Active Medications: Active Medications Acetaminophen (Tylenol) 650 mg PO Q6H PRN PRN Reason: PAIN 1-10 AND/OR FEVER >101F Al Hydroxide/Mg Hydroxide (Milk Of Magnesia Liq) 30 ml PO Q12H PRN PRN Reason: Mild Constipation Last Admin: 01/24/18 08:22 Dose: 30 ml Albuterol (Albuterol Neb (Prn)) 2.5 mg NEB Q2HR NEB PRN PRN Reason: SHORTNESS OF BREATH/WHEEZING Last Admin: 01/26/18 00:03 Dose: 2.5 mg Bisacodyl (Dulcolax Supp) 10 mg RECTAL DAILY PRN PRN Reason: SEVERE CONSITIPATION Last Admin: 01/19/18 08:38 Dose: 10 mg Chlordiazepoxide (Librium) 25 mg PO DAILY [facility] Last Admin: 01/26/18 08:27 Dose: 25 mg Chlorhexidine Gluconate (Peridex 0.12% Oral Kit) 15 ml OROPHARYNG BID@0800, 2000 [facility] Last Admin: 01/26/18 08:28 Dose: 15 ml Dextrose (D50w Vial) 50 ml IV.PUSH UNSCH PRN PRN Reason: PER HYPOGLYCEMIA PROTOCOL Last Admin: 01/18/18 19:06 Dose: 50 ml Enoxaparin Sodium (Lovenox Inj) 40 mg SQ DAILY [facility] Last Admin: 01/25/18 09:08 Dose: 40 mg Famotidine (Pepcid Pf Inj) 20 mg IV.PUSH Q12HR [facility] Last Admin: 01/26/18 08:27 Dose: 20 mg Fentanyl Citrate (Fentanyl Inj) 50 mcg IV PUSH Q1H PRN PRN Reason: Pain scale 6-10, &/or sedation Last Admin: 01/13/18 23:37 Dose: 50 mcg Furosemide (Lasix Inj) 40 mg IV.PUSH Q6H [facility] Last Admin: 01/26/18 05:27 Dose: 40 mg Glucagon (Glucagon Inj) 1 mg OTHER PRN PRN PRN Reason: for Hypoglycemia Protocol Fentanyl (Fentanyl 10 Mcg/Ml Premix Drip) 2,500 mcg in 250 mls @ 5 mls/hr IV.SIG TITRATE PRN; Protocol PRN Reason: Per Protocol Last Admin: 01/25/18 23:03 Dose: 1,000 mcg/hr, 100 mls/hr Propofol (Diprivan 1000 Mg/100 Ml Inj) 1,000 mg in 100 mls @ 2.585 mls/hr IV.CONT TITRATE PRN; Protocol PRN Reason: Per Protocol Last Admin: 01/26/18 09:33 Dose: 50 mcg/kg/min, 25.86 mls/hr Magnesium Sulfate 4 gm/ Sodium (Chloride) 100 mls @ 50 mls/hr IV.SIG UNSCH PRN PRN Reason: For Magnesium 0.9 - 1.1 mg/dL Magnesium Sulfate 2 gm/ Sodium (Chloride) 100 mls @ 50 mls/hr IV.SIG UNSCH PRN PRN Reason: For Magnesium 1.2 - 1.6 mg/dL Potassium Chloride (Kcl 40 Meq Premix Inj) 40 meq in 100 mls @ 25 mls/hr IV.SIG Q2H PRN PRN Reason: For Potassium 2.8 - 3.2 mEq/L Last Admin: 01/26/18 09:33 Dose: 25 mls/hr Potassium Chloride (Kcl 20 Meq Premix Inj) 20 meq in 100 mls @ 50 mls/hr IV.SIG Q2H PRN PRN Reason: For Potassium 3.3 - 3.5 mEq/L Last Infusion: 01/18/18 07:30 Dose: Infused Potassium Chloride (Kcl 40 Meq Premix Inj) 40 meq in 100 mls @ 25 mls/hr IV.SIG UNSCH PRN PRN Reason: For Potassium 3.3 - 3.5 mEq/L Last Infusion: 01/21/18 20:39 Dose: Infused Potassium Chloride (Kcl 20 Meq Premix Inj) 20 meq in 100 mls @ 50 mls/hr IV.SIG Q2H PRN PRN Reason: For Potassium 2.8 - 3.2 mEq/L Last Infusion: 01/13/18 20:30 Dose: Infused Potassium Phosphate 30 mmol/ (Sodium Chloride) 260 mls @ 42 mls/hr IV.SIG UNSCH PRN PRN Reason: SEE LABEL COMMENTS Sodium Phosphate 30 mmol/ (Sodium Chloride) 260 mls @ 42 mls/hr IV.SIG UNSCH PRN PRN Reason: For Phosphorus < 2.5 mg/dL Midazolam HCl (Versed Inj) 100 mg in 100 mls @ 2 mls/hr IV.CONT TITRATE PRN; Protocol PRN Reason: See protocol Last Titration: 01/25/18 00:36 Dose: 0 mg/hr, 0 mls/hr Cefazolin Sodium 1,000 mg/ (Sodium Chloride) 100 mls @ 200 mls/hr IV.SIG GEOLOGICAL SCOUT VU Stop: 01/29/18 10:32 Insulin Aspart (Novolog Insulin Correctional Sugar Inj) 0 unit SQ Q6HR VU; Protocol Last Admin: 01/26/18 05:39 Dose: Not Given Labetalol HCl (Trandate Inj) 20 mg IV.PUSH Q2H PRN PRN Reason: SBP>160, DBP>90 Last Admin: 01/25/18 04:54 Dose: 20 mg Lactulose (Lactulose Liq) 30 ml PO DAILY PRN PRN Reason: SEVERE CONSITIPATION Last Admin: 01/21/18 17:19 Dose: 30 ml Lorazepam (Ativan Inj) 1 mg IV.PUSH Q2H PRN PRN Reason: AGITATION Last Admin: 01/12/18 01:59 Dose: 1 mg Magnesium Oxide (Mag-Ox) 800 mg PO UNSCH PRN PRN Reason: For Magnesium 1.2 - 1.6 mg/dL Methadone HCl (Dolophine) 10 mg PO Q12H [facility] Last Admin: 01/26/18 03:40 Dose: 10 mg Metoclopramide HCl (Reglan Inj) 10 mg IV.PUSH Q8HR [facility]; Protocol Last Admin: 01/26/18 05:29 Dose: 10 mg Miscellaneous (Pill Splitter) 1 each OTHER UNSCH PRN PRN Reason: PILL SPLITTER Miscellaneous Medication () 1 each OROPHARYNG 0000,0400,1200,1600 [facility] Last Admin: 01/26/18 03:37 Dose: 1 each Multivitamins (Theragran) 1 tab NG/OG DAILY [facility] Last Admin: 01/26/18 08:28 Dose: 1 tab Ondansetron HCl (Zofran Inj) 4 mg IV.PUSH Q6H PRN PRN Reason: NAUSEA OR VOMITING Last Admin: 01/13/18 06:28 Dose: 4 mg Potassium Bicarb/Potassium Chloride (K-Lyte Cl Eff) 50 meq PO UNSCH PRN PRN Reason: For Potassium 3.3 - 3.5 mEq/L Last Admin: 01/24/18 08:22 Dose: 50 meq Potassium Phosphate (K-Phos Original) 2,000 mg PO Q4H PRN PRN Reason: Phosphorus Less Than 2.5 mg/dL Potassium Phosphate (K-Phos Original) 2,000 mg PO UNSCH PRN PRN Reason: SEE LABEL COMMENTS Senna/Docusate Sodium (Rosette-Colace) 1 tab PO BID [facility] Last Admin: 01/26/18 08:27 Dose: 1 tab Sennosides (Senokot) 17.2 mg PO Q12H PRN PRN Reason: Moderate Constipation Sodium Chloride (Ns Flush) 2 ml IV.FLUSH BID [facility] Last Admin: 01/26/18 08:27 Dose: 2 ml Sodium Chloride (Ns Flush) 2 ml IV.FLUSH PRN PRN PRN Reason: FLUSH AFTER USING IV ACCESS Whey (Beneprotein Powder) 2 packet G-TUBE TID [facility] Last Admin: 01/26/18 08:27 Dose: Not Given Allergies Allergy/AdvReac Type Severity Reaction Status Date / Time No Allergy Information Allergy Verified 01/20/18 01:00 Available Home Medications Medication Instructions Recorded Confirmed Type No Known Home Medications 01/11/18 01/11/18 History Exam Vital signs: Vital Signs 01/25/18 11:00 01/25/18 11:15 01/25/18 12:00 Temperature 99.9 F H 99.9 F H Pulse Rate 105 H 106 H 107 H Respiratory Rate 16 16 16 Blood Pressure Pulse Oximetry 93 L 93 L 93 L 01/25/18 13:00 01/25/18 14:00 01/25/18 15:00 Temperature 99.9 F H 99.5 F 99.5 F Pulse Rate 112 H 103 H 107 H Respiratory Rate 25 H 16 17 Blood Pressure Pulse Oximetry 93 L 95 97 01/25/18 16:00 01/25/18 17:00 01/25/18 17:03 Temperature 99.5 F 99.3 F Pulse Rate 104 H 104 H Respiratory Rate 16 12 12 Blood Pressure Pulse Oximetry 92 L 94 L 93 L 01/25/18 18:00 01/25/18 19:00 01/25/18 20:00 Temperature 99.3 F 99.3 F 99.5 F Pulse Rate 106 H 103 H 102 H Respiratory Rate 34 H 17 19 Blood Pressure Pulse Oximetry 89 L 89 L 88 L 01/25/18 21:00 01/25/18 22:00 01/25/18 22:22 Temperature 99.9 F H 99.5 F Pulse Rate 103 H 100 H Respiratory Rate 17 16 Blood Pressure Pulse Oximetry 92 L 88 L 97 01/25/18 22:41 01/25/18 23:00 01/25/18 23:26 Temperature 99.7 F H 99.7 F H Pulse Rate 105 H 107 H 105 H Respiratory Rate 22 24 19 Blood Pressure 142/92 H 141/81 H Pulse Oximetry 99 90 L 87 L 01/26/18 00:00 01/26/18 00:03 01/26/18 01:00 Temperature 99.9 F H 99.9 F H Pulse Rate 108 H 109 H 109 H Respiratory Rate 21 18 18 Blood Pressure 155/88 H 161/99 H Pulse Oximetry 88 L 94 L 01/26/18 02:00 01/26/18 03:00 01/26/18 04:00 Temperature 99.9 F H 99.7 F H 99.7 F H Pulse Rate 102 H 103 H 100 H Respiratory Rate 16 16 16 Blood Pressure 148/80 H 142/91 H 133/80 Pulse Oximetry 94 L 100 95 01/26/18 04:17 01/26/18 05:00 01/26/18 06:00 Temperature 99.1 F 98.8 F Pulse Rate 97 H 104 H Respiratory Rate 16 16 16 Blood Pressure 134/82 138/81 Pulse Oximetry 94 L 95 93 L 01/26/18 08:00 01/26/18 09:40 Temperature Pulse Rate Respiratory Rate 16 Blood Pressure Pulse Oximetry 93 L 98 Intake & Output 01/25/18 01/26/18 01/26/18 18:59 06:59 18:59 Intake Total 1897 / 1897 377 / 377 200 / 200 Output Total 2350 / 2350 2486 / 2486 Balance -453 / -453 -2109 / -2109 200 / 200 Weight 76.8 kg Intake: IV 915 / 915 200 / 200 200 / 200 Diprivan 1000 mg/100 ml Inj 1, 200 / 200 200 / 200 100 / 100 000 mg In 100 ml @ 5 MCG/KG/MIN 2.585 mls/hr IV.CONT TITRATE PRN Rx#:[id number] Zosyn 4.5 GM Premix 4.5 gm In 200 / 200 100 ml @ 200 mls/hr IV.SIG Q6H VU Rx#:[id number] KCl 40 mEq Premix Inj 40 meq In 100 / 100 100 ml @ 25 mls/hr IV.SIG Q2H PRN Rx#:[id number] Vancomycin Inj 1,500 MG In NS 515 / 515 Inj 500 ML @ 250 mls/hr IV.SIG Q12H VU Rx#:[id number] Tube Feeding 202 / 202 117 / 117 Tube Irrigant 60 / 60 Other 780 / 780 Output: Stool 450 / 450 111 / 111 Urine Amount (Catheter) 1750 / 1750 2375 / 2375 Indwelling Urethral Catheter 1749 Gastric Drainage 150 / 150 Orogastric Tube 150 / 150 Other: Date of Last Bowel Movement 01/25/18 01/25/18 # Incontinent Bowel Movements 2 - Constitutional Comments: Critically ill tracheostomy and mechanically ventilated - Routine HEENT Exam Head: Present: normocephalic - Routine Respiratory Exam Present: patient mechanically ventilated, CTA bilaterally - Routine Cardiovascular Exam Present: RRR, tachycardia - Routine Abdominal Exam Present: soft, normoactive bowel sounds. Absent: tenderness, distended, guarding, firm, surgical scars - Routine Skin Exam Present: dry, warm. Absent: pallor - Routine Neurological Exam Propofol Results - Labs CBC & Chem 7: 01/25/18 04:45 01/26/18 04:50 Labs: Laboratory Results - last 24 hr 01/25/18 01/25/18 01/25/18 12:59 17:32 23:45 Puncture Site Patient Temperature O2 Saturation ABG pH ABG pCO2 ABG pO2 ABG HCO3 ABG O2 Content ABG Base Excess ABG Methemoglobin Hemoglobin Carboxyhemoglobin O2 Delivery Device Vent Setting Inspired O2 Critical Value Sodium Potassium Chloride Carbon Dioxide Anion Gap BUN Creatinine Estimated GFR POC Glucose 120 H 119 H 114 H Random Glucose Calcium Total Bilirubin AST ALT Alkaline Phosphatase Total Protein Albumin Stl C.difficile DNA Amp St C. diff Tox Epid 027 01/26/18 01/26/18 01/26/18 04:50 05:14 05:32 Puncture Site Art line Patient Temperature 98.6 O2 Saturation 96 ABG pH 7.50 H ABG pCO2 47 H ABG pO2 104 ABG HCO3 36 H ABG O2 Content 15.3 ABG Base Excess 11.8 H ABG Methemoglobin 1.3 Hemoglobin 11.3 L Carboxyhemoglobin 1.0 O2 Delivery Device Vent Vent Setting Prvc/ac Inspired O2 55 Critical Value No Sodium 140 Potassium 2.9 L* D Chloride 94 L Carbon Dioxide 36.7 H Anion Gap 9 BUN 16 Creatinine 0.66 Estimated GFR Greater than 89 POC Glucose 111 H Random Glucose 116 H Calcium 8.8 Total Bilirubin 0.7 AST 29 ALT 24 Alkaline Phosphatase 133 H Total Protein 7.2 Albumin 2.3 L Stl C.difficile DNA Amp St C. diff Tox Epid 027 01/26/18 08:58 Puncture Site Patient Temperature O2 Saturation ABG pH ABG pCO2 ABG pO2 ABG HCO3 ABG O2 Content ABG Base Excess ABG Methemoglobin Hemoglobin Carboxyhemoglobin O2 Delivery Device Vent Setting Inspired O2 Critical Value Sodium Potassium Chloride Carbon Dioxide Anion Gap BUN Creatinine Estimated GFR POC Glucose Random Glucose Calcium Total Bilirubin AST ALT Alkaline Phosphatase Total Protein Albumin Stl C.difficile DNA Amp Negative St C. diff Tox Epid 027 Negative - Imaging Impressions Chest CT 01/25/18 00:00 CONCLUSION: 1. Small bilateral pleural effusions overall improved from January 08. 2. Improving bilateral airspace consolidation in the lungs. 3. Endotracheal tube, nasogastric tube and feeding tube and right central line in good position. Assessment and Plan - Plan This patient is a 37-year-old male who was brought to [place] emergency room post heroin overdose. Patient is now post placement of tracheostomy and is mechanically ventilated. Sinus tach in the 110's on cardiac rehabilitation program director blood pressure 114/68 patient currently with 95-96% saturation. Propofol and fentanyl currently infusing. Patient has NG tube in place with Oxepa infusing at 20 mL's per hour as per dietary recommendation. Dignity shield in place with moderate amount of brown stool noted. Our service has been consulted to evaluate patient for PEG tube placement. Plan -Hold tube feedings at midnight -Obtain consent for EGD with PEG placement -Hold Lovenox a.m. dose on 01/27/2018 -Ancef 1 g IV on-call for PEG tube placement -Supportive care -Further recommendations to follow This patient has been seen by myself and Dr. Nieto and this note is written on his behalf - Attending Attestation Dr. Nieto
--- NOTE | 2018-01-26 12:03 | P.PNID ---
Subjective Remarks: Notes reviewed. Patient just underwent tracheostomy. Sedated but opens eyes to command. Not following any other commands. No fever. Cultures no growth. 37-year-old white male who was brought in to the emergency department when he was found down by a friend. The patient was noted to have overdosed on drugs. He was noted to have used IV heroin. In the emergency department, his temperature was normal. Chest x-ray was performed and showed an elevation of the right hemidiaphragm and right lower lobe consolidation versus atelectasis and small to moderate-sized right pleural effusion. The white blood cell count was elevated at 14.3. Blood cultures on admission had Staph coagulase negative. Antibiotics: zosyn vanco Past Medical History: PAST MEDICAL HISTORY: Intravenous drug abuse. Allergies/Adverse Reactions: Allergies No Allergy Information Available Allergy (Verified 01/20/18 01:00) UTO Objective Vital Signs 01/25/18 12:00 01/25/18 13:00 01/25/18 14:00 Temperature 99.9 F H 99.9 F H 99.5 F Pulse Rate 107 H 112 H 103 H Respiratory Rate 16 25 H 16 Blood Pressure Pulse Oximetry 93 L 93 L 95 01/25/18 15:00 01/25/18 16:00 01/25/18 17:00 Temperature 99.5 F 99.5 F 99.3 F Pulse Rate 107 H 104 H 104 H Respiratory Rate 17 16 12 Blood Pressure Pulse Oximetry 97 92 L 94 L 01/25/18 17:03 01/25/18 18:00 01/25/18 19:00 Temperature 99.3 F 99.3 F Pulse Rate 106 H 103 H Respiratory Rate 12 34 H 17 Blood Pressure Pulse Oximetry 93 L 89 L 89 L 01/25/18 20:00 01/25/18 21:00 01/25/18 22:00 Temperature 99.5 F 99.9 F H 99.5 F Pulse Rate 102 H 103 H 100 H Respiratory Rate 19 17 16 Blood Pressure Pulse Oximetry 88 L 92 L 88 L 01/25/18 22:22 01/25/18 22:41 01/25/18 23:00 Temperature 99.7 F H Pulse Rate 105 H 107 H Respiratory Rate 22 24 Blood Pressure 142/92 H Pulse Oximetry 97 99 90 L 01/25/18 23:26 01/26/18 00:00 01/26/18 00:03 Temperature 99.7 F H 99.9 F H Pulse Rate 105 H 108 H 109 H Respiratory Rate 19 21 18 Blood Pressure 141/81 H 155/88 H Pulse Oximetry 87 L 88 L 01/26/18 01:00 01/26/18 02:00 01/26/18 03:00 Temperature 99.9 F H 99.9 F H 99.7 F H Pulse Rate 109 H 102 H 103 H Respiratory Rate 18 16 16 Blood Pressure 161/99 H 148/80 H 142/91 H Pulse Oximetry 94 L 94 L 100 01/26/18 04:00 01/26/18 04:17 01/26/18 05:00 Temperature 99.7 F H 99.1 F Pulse Rate 100 H 97 H Respiratory Rate 16 16 16 Blood Pressure 133/80 134/82 Pulse Oximetry 95 94 L 95 01/26/18 06:00 01/26/18 08:00 01/26/18 09:40 Temperature 98.8 F Pulse Rate 104 H Respiratory Rate 16 16 Blood Pressure 138/81 Pulse Oximetry 93 L 93 L 98 Intake & Output 01/25/18 01/26/18 01/26/18 18:59 06:59 18:59 Intake Total 1897 / 1897 377 / 377 200 / 200 Output Total 2350 / 2350 2486 / 2486 Balance -453 / -453 -2109 / -2109 200 / 200 Weight 76.8 kg Intake: IV 915 / 915 200 / 200 200 / 200 Diprivan 1000 mg/100 ml Inj 1, 200 / 200 200 / 200 100 / 100 000 mg In 100 ml @ 5 MCG/KG/MIN 2.585 mls/hr IV.CONT TITRATE PRN Rx#:[id number] Zosyn 4.5 GM Premix 4.5 gm In 200 / 200 100 ml @ 200 mls/hr IV.SIG Q6H VU Rx#:[id number] KCl 40 mEq Premix Inj 40 meq In 100 / 100 100 ml @ 25 mls/hr IV.SIG Q2H PRN Rx#:[id number] Vancomycin Inj 1,500 MG In NS 515 / 515 Inj 500 ML @ 250 mls/hr IV.SIG Q12H VU Rx#:[id number] Tube Feeding 202 / 202 117 / 117 Tube Irrigant 60 / 60 Other 780 / 780 Output: Stool 450 / 450 111 / 111 Urine Amount (Catheter) 1750 / 1750 2375 / 2375 Indwelling Urethral Catheter 1750 / 1750 2375 / 2375 Gastric Drainage 150 / 150 Orogastric Tube 150 / 150 Other: Date of Last Bowel Movement 01/25/18 01/25/18 # Incontinent Bowel Movements 2 01/22/18 13:15 Blood - Peripheral Aerobic Blood Culture - Preliminary No growth in 4 days 01/22/18 13:15 Blood - Peripheral Anaerobic Blood Culture - Preliminary No growth in 4 days 01/22/18 13:24 Blood - Peripheral Aerobic Blood Culture - Preliminary No growth in 4 days 01/22/18 13:24 Blood - Peripheral Anaerobic Blood Culture - Preliminary No growth in 4 days 01/24/18 13:00 Bronchial - Right Lower Lobe Gram Stain - Final 01/24/18 13:00 Bronchial - Right Lower Lobe Bronchial Culture - Final Moderate growth normal respiratory alistair 01/22/18 13:30 Sputum - Endotracheal Gram Stain - Final 01/22/18 13:30 Sputum - Endotracheal Sputum Culture - Final Heavy growth normal respiratory alistair Lab - Hematology Results 01/25/18 04:45 WBC 14.4 H RBC 3.59 L Hgb 11.8 L Hct 33.9 L MCV 94.5 MCH 32.8 MCHC 34.7 RDW 13.6 Plt Count 612 H MPV 8.3 Lab - Chemistry Results 01/24/18 01/25/18 01/25/18 14:51 00:40 04:45 Sodium 139 Potassium 3.8 Chloride 98 Carbon Dioxide 33.9 H Anion Gap 7 BUN 15 Creatinine 0.68 Estimated GFR Greater than 89 POC Glucose 90 117 H Random Glucose 119 H Calcium 8.8 Total Bilirubin 0.7 AST 40 H ALT 29 Alkaline Phosphatase 151 H Total Protein 7.0 Albumin 2.2 L 01/25/18 01/25/18 01/25/18 12:59 17:32 23:45 Sodium Potassium Chloride Carbon Dioxide Anion Gap BUN Creatinine Estimated GFR POC Glucose 120 H 119 H 114 H Random Glucose Calcium Total Bilirubin AST ALT Alkaline Phosphatase Total Protein Albumin 01/26/18 01/26/18 04:50 05:32 Sodium 140 Potassium 2.9 L* D Chloride 94 L Carbon Dioxide 36.7 H Anion Gap 9 BUN 16 Creatinine 0.66 Estimated GFR Greater than 89 POC Glucose 111 H Random Glucose 116 H Calcium 8.8 Total Bilirubin 0.7 AST 29 ALT 24 Alkaline Phosphatase 133 H Total Protein 7.2 Albumin 2.3 L Imaging: ITS Impressions Head CT 01/05/18 05:01 CONCLUSION: 1. No acute intracranial findings. 2. Air-fluid levels in the right maxillary and sphenoid sinuses suggesting possible acute sinusitis versus air-fluid levels related to intubation.. . Abdomen X-Ray 01/20/18 05:00 CONCLUSION: Feeding tube distal tip is either in the first portion of the duodenum or pylorus region of the stomach. Venous Doppler Study 01/22/18 00:00 CONCLUSION: No venous thrombosis is identified within either upper extremity. Chest CT 01/25/18 00:00 CONCLUSION: 1. Small bilateral pleural effusions overall improved from January 08. 2. Improving bilateral airspace consolidation in the lungs. 3. Endotracheal tube, nasogastric tube and feeding tube and right central line in good position. Chest X-Ray 01/25/18 06:00 CONCLUSION: Bilateral pulmonary opacity again seen along with elevation of the right hemidiaphragm. No significant interval change. Physical Exam: GENERAL: Patient in no acute distress. Sedated. HEENT: Oropharyngeal mucosa is slightly dry. LUNGS: Breath sounds are diminished but clear. HEART: Regular S1, S2, without murmurs, rubs or gallops. ABDOMEN: soft not tender EXTREMITIES: No clubbing or cyanosis or edema. SKIN: No diffuse rash. NEUROLOGIC: Unable to assess. PSYCHIATRIC: Unable to assess. Assessment and Plan - Plan IMPRESSION: 1. Pneumonia. 2. Bacteremia due to Staphylococcus coag negative. Repeat blood cultures have no growth. This possibly could be contamination. 3. Acute respiratory failure. 4. Intravenous drug use. 5. Probable aspiration. Chest x-ray shows improved aeration. ? R UE DVT abx associated diarrhea, c.diff negative. RECOMMENDATIONS: Monitor temperature. Monitor clinica status.
[2018-01-26] MEDS ORDERED: Pharmacy Ordered Lab Info OTHER ONE (13:45)
[2018-01-26 16:37] LABS: INR 1.1 Ratio; Prothrombin Time 10.8 sec (9.8-11.6)
[2018-01-26] MEDS: fentaNYL 10 mcg/mL Premix Drip 2,500 MCG/250 ML BAG IV.SIG PRN (16:38)
[2018-01-26] MEDS: Potassium Chlor 20 mEq Premix 20 MEQ/100 ML PIGGYBACK IV.SIG PRN ×3 (19:01→23:28)
[2018-01-27] MEDS: Potassium Chlor 20 mEq Premix 20 MEQ/100 ML PIGGYBACK IV.SIG PRN ×4 (01:41→23:10)
[2018-01-27] MEDS: Methadone 10 MG Tablet PO SCH ×2 (02:30→14:16)
[2018-01-27] MEDS: Oral Hygiene Kit OROPHARYNG SCH ×4 (04:11→23:47)
--- NOTE | 2018-01-27 04:17 | XR ---
EXAM DATE: 01/27/2018 4:13 AM EST AGE/SEX: 37 years / Male INDICATIONS: Respiratory disease. CLINICAL DATA: This is the patient's subsequent encounter. Patient reports that signs and symptoms h ave been present for 3 weeks and indicates a pain score of Nonresponsive. MEDICAL/SURGICAL HISTORY: . Smoker. IV drug user . Central line placement. COMPARISON: [facility] [place], CHEST 1V SINGLE AP, 01/25/2018. . FINDINGS: Single AP view the chest. Endotracheal tube is no longer seen. Tracheostomy tube is now present. Feed ing tube remains in place. Right IJ central venous catheter is no longer seen. There is persistent el evation of the right hemidiaphragm and right lower lung consolidation versus atelectasis. Lung opacit y at the right lung base has increased when compared to the prior study. Confluent opacity at the med ial left lung base is also increased. No evidence of pneumothorax. Cardiomediastinal silhouette uncha nged. CONCLUSION: 1. Tracheostomy tube now in place. 2. Increased confluent opacity at the lung bases indicating atelectasis versus consolidation. 3. Right hemidiaphragm elevation again seen. Electronically signed by: Joseph Locke MD 01/27/2018 4:16 AM EST
[2018-01-27] MEDS: Propofol 1000 mg/100 ml Inj 1,000 MG/100 ML BOTTLE IV.CONT PRN ×3 (04:52→17:25)
[2018-01-27 05:10] LABS: Alanine Aminotransferase 24 U/L (12-78); Albumin 2.4 g/dL (3.4-5.0); Anion Gap 6 meq/L (5-15); Aspartate Aminotransferase 29 U/L (15-37); Blood Urea Nitrogen 19 mg/dL (7-18); Calcium 8.9 mg/dL (8.5-10.1); Carbon Dioxide 33.9 meq/L (21.0-32.0); Chloride 100 meq/L (98-107); Glomerular Filtration Rate Greater Than 89 mL/min (>89); Glucose,Random 99 mg/dL (74-106); Magnesium 1.9 mg/dL (1.5-2.5); Potassium 3.4 meq/L (3.5-5.1); Sodium 140 meq/L (136-145)
[2018-01-27 05:12] LABS: Alkaline Phosphatase 124 U/L (45-117); Total Protein 7.1 g/dL (6.4-8.2)
[2018-01-27 05:21] LABS: Hematocrit 32.8 % (39.0-51.0); Hemoglobin 11.4 gm/dL (13.0-17.0); Mean Corpuscular HGB Conc 34.7 % (32.0-36.0); Mean Corpuscular Hemoglobin 32.6 pg (27.0-34.0); Mean Corpuscular Volume 93.9 fL (80.0-100.0); Mean Platelet Volume 8.6 fL (7.0-11.0); Platelet Count 498 th/mm3 (150-450); Red Blood Count 3.49 mil/mm3 (4.50-5.90); Red Cell Distribution Width 13.3 % (11.6-17.2); White Blood Count 16.4 th/mm3 (4.0-11.0)
[2018-01-27] MEDS: Insulin NovoLOG Aspart Correctional Sugar Inj SQ SCH ×4 (05:51→23:47)
[2018-01-27] MEDS: Chlorhexidine 0.12% Oral Kit 15 ML UDC OROPHARYNG SCH ×2 (08:32→20:46)
[2018-01-27] MEDS: chlordiazePOXIDE 25 MG Capsule PO SCH (08:32)
[2018-01-27] MEDS: Famotidine PF Inj 20 MG/2 ML Vial IV.PUSH SCH ×2 (08:32→21:28)
[2018-01-27] MEDS: Senna/Docusate Sodium 8.6/50 MG Tablet PO SCH ×2 (08:32→21:27)
[2018-01-27] MEDS: Beneprotein Powder Packet G-TUBE SCH ×3 (08:32→17:24)
--- NOTE | 2018-01-27 09:18 | P.PNGS ---
Subjective Interval history: DAILY PROGRESS NOTE FOR SURGICAL ATTENDING, DR. PREET BASILIO Eyes open On vent via trach TAWNY Maldonado at bedside Physical Exam Vital signs: Vital Signs 01/26/18 09:40 01/26/18 10:00 01/26/18 11:00 Temperature 99.3 F 99.0 F Pulse Rate 128 H 122 H Respiratory Rate 20 20 Blood Pressure Pulse Oximetry 98 98 94 L 01/26/18 12:00 01/26/18 12:06 01/26/18 13:00 Temperature 98.8 F 99.0 F Pulse Rate 117 H 119 H Respiratory Rate 20 16 16 Blood Pressure Pulse Oximetry 97 95 97 01/26/18 14:00 01/26/18 15:00 01/26/18 16:00 Temperature 98.6 F 98.8 F 98.8 F Pulse Rate 131 H 126 H 124 H Respiratory Rate 17 16 16 Blood Pressure 146/96 H 146/96 H Pulse Oximetry 93 L 93 L 95 01/26/18 16:22 01/26/18 17:00 01/26/18 18:00 Temperature 99.0 F Pulse Rate 109 H 104 H Respiratory Rate 16 22 16 Blood Pressure 152/90 H 139/85 Pulse Oximetry 93 L 94 L 93 L 01/26/18 19:00 01/26/18 20:00 01/26/18 21:00 Temperature 99.3 F Pulse Rate 108 H 96 H 88 Respiratory Rate 17 16 16 Blood Pressure 145/84 H 126/76 128/80 Pulse Oximetry 94 L 92 L 100 01/26/18 21:29 01/26/18 22:00 01/26/18 23:00 Temperature Pulse Rate 91 H 101 H Respiratory Rate 16 16 16 Blood Pressure 133/81 135/83 Pulse Oximetry 97 96 97 01/26/18 23:52 01/27/18 00:00 01/27/18 01:00 Temperature 99.1 F Pulse Rate 108 H 95 H Respiratory Rate 17 17 16 Blood Pressure 139/88 127/73 Pulse Oximetry 94 L 93 L 92 L 01/27/18 02:00 01/27/18 03:00 01/27/18 03:38 Temperature Pulse Rate 88 96 H Respiratory Rate 16 16 16 Blood Pressure 125/77 139/92 H Pulse Oximetry 95 100 94 L 01/27/18 04:00 01/27/18 05:00 01/27/18 06:00 Temperature 99.6 F Pulse Rate 89 90 86 Respiratory Rate 16 16 16 Blood Pressure 124/72 125/76 122/69 Pulse Oximetry 94 L 94 L 93 L 01/27/18 07:00 01/27/18 07:30 01/27/18 08:00 Temperature 98.7 F Pulse Rate 90 104 H 109 H Respiratory Rate 16 17 27 H Blood Pressure 123/71 140/87 Pulse Oximetry 92 L 93 L 94 L 01/27/18 08:43 Temperature Pulse Rate Respiratory Rate 17 Blood Pressure Pulse Oximetry 93 L Intake & Output 01/26/18 01/27/18 01/27/18 18:59 06:59 18:59 Intake Total 770 / 770 660 / 660 100 / 100 Output Total 2800 / 2800 1125 / 1125 Balance -2030 / -2030 -465 / -465 100 / 100 Weight 74.1 kg Intake: IV 650 / 650 600 / 600 100 / 100 Diprivan 1000 mg/100 ml Inj 1, 200 / 200 200 / 200 000 mg In 100 ml @ 5 MCG/KG/MIN 2.585 mls/hr IV.CONT TITRATE PRN Rx#:[id number] KCl 20 mEq Premix Inj 20 meq In 400 / 400 100 / 100 100 ml @ 50 mls/hr IV.SIG Q2H PRN Rx#:[id number] KCl 40 mEq Premix Inj 40 meq In 200 / 200 100 ml @ 25 mls/hr IV.SIG Q2H PRN Rx#:[id number] fentaNYL 10 mcg/mL Premix Drip 250 / 250 2,500 mcg In 250 ml @ 50 MCG/HR 5 mls/hr IV.SIG TITRATE PRN Rx #:[id number] Water Bolus Amount 60 / 60 Other 120 / 120 Output: Stool 100 / 100 Urine Amount (Catheter) 2700 / 2700 1125 / 1125 Indwelling Urethral Catheter 2700 / 2700 1125 / 1125 Other: Date of Last Bowel Movement 01/26/18 01/25/18 01/25/18 Narrative: Eyes open Trach in place with no drainage or bleeding - Urinary Catheter Management Indwelling Urethral Catheter Cath placed during this visit: yes, but has since been removed by the nurse Reason for continuing: Hourly intake/output Insertion date: 01/18/18 Insertion time: 09:10 Removal date: 01/17/18 Removal time: 09:14 Results - Labs 01/27/18 04:20 01/27/18 04:20 Laboratory Results - last 24 hr 01/26/18 01/26/18 01/26/18 08:58 16:15 18:05 WBC RBC Hgb Hct MCV MCH MCHC RDW Plt Count MPV PT 10.8 INR 1.1 Sodium Potassium 3.1 L Chloride Carbon Dioxide Anion Gap BUN Creatinine Estimated GFR POC Glucose Random Glucose Calcium Magnesium Total Bilirubin AST ALT Alkaline Phosphatase Total Protein Albumin Stl C.difficile DNA Amp Negative St C. diff Tox Epid 027 Negative 01/26/18 01/27/18 01/27/18 23:42 04:20 04:20 WBC 16.4 H RBC 3.49 L Hgb 11.4 L Hct 32.8 L MCV 93.9 MCH 32.6 MCHC 34.7 RDW 13.3 Plt Count 498 H MPV 8.6 PT INR Sodium 140 Potassium 3.4 L Chloride 100 Carbon Dioxide 33.9 H Anion Gap 6 BUN 19 H Creatinine 0.66 Estimated GFR Greater than 89 POC Glucose 95 Random Glucose 99 Calcium 8.9 Magnesium 1.9 Total Bilirubin 0.6 AST 29 ALT 24 Alkaline Phosphatase 124 H Total Protein 7.1 Albumin 2.4 L Stl C.difficile DNA Amp St C. diff Tox Epid 027 01/27/18 05:14 WBC RBC Hgb Hct MCV MCH MCHC RDW Plt Count MPV PT INR Sodium Potassium Chloride Carbon Dioxide Anion Gap BUN Creatinine Estimated GFR POC Glucose 95 Random Glucose Calcium Magnesium Total Bilirubin AST ALT Alkaline Phosphatase Total Protein Albumin Stl C.difficile DNA Amp St C. diff Tox Epid 027 - Imaging Imaging: ITS Impressions Head CT 01/05/18 05:01 CONCLUSION: 1. No acute intracranial findings. 2. Air-fluid levels in the right maxillary and sphenoid sinuses suggesting possible acute sinusitis versus air-fluid levels related to intubation.. . Abdomen X-Ray 01/20/18 05:00 CONCLUSION: Feeding tube distal tip is either in the first portion of the duodenum or pylorus region of the stomach. Venous Doppler Study 01/22/18 00:00 CONCLUSION: No venous thrombosis is identified within either upper extremity. Chest CT 01/25/18 00:00 CONCLUSION: 1. Small bilateral pleural effusions overall improved from January 08. 2. Improving bilateral airspace consolidation in the lungs. 3. Endotracheal tube, nasogastric tube and feeding tube and right central line in good position. Chest X-Ray 01/27/18 06:00 CONCLUSION: 1. Tracheostomy tube now in place. 2. Increased confluent opacity at the lung bases indicating atelectasis versus consolidation. 3. Right hemidiaphragm elevation again seen. Assessment and Plan - Assessment (1) Ventilator dependent Code(s): Z99.11 - Dependence on respirator [ventilator] status Status: Acute Plan: 37 year old make with aspiration pneumonitis; VDRF -POD1 trach placement -Continue routine trach care -Vent per [facility] -GS will sign off; Please call with any questions - Attending Attestation NOTE FOR SURGICAL ATTENDING, DR. PREET BASILIO I agree with above assessment and plan. The exam, history, and the medical decision-making described in the above note were completed with the assistance of the mid-level provider. I reviewed and agree with the findings presented. The following services were provided during this hospital visit: Chart data review, vital sign assessments/reviewing monitor data Review of consultations notes if present. Medication orders/review and/or management Ordering and/or reviewing lab tests Ordering and/or interpreting/reviewing x-rays and/or diagnostic studies Care of the patient and discussion of the patient with the care team Documentation time To help prompt me to consider important information that might be impacting today's encounter and assessment, Information from prior notes written by myself or my colleagues may have been "brought forward/copy and pasted" into today's note.
[2018-01-27] MEDS: fentaNYL 10 mcg/mL Premix Drip 2,500 MCG/250 ML BAG IV.SIG PRN (10:15)
--- NOTE | 2018-01-27 11:26 | P.PNCC ---
Subjective Subjective Remarks/Hospital Course: 37-year-old male who is brought to [facility] emergency department after friends contacted [facility] due to decreased mental status with suspected heroin overdose. He had used heroin earlier in the evening. [facility] reportedly found him laying in emesis with a thready pulse. They gave him sequential doses of Narcan to a total of 2.4 mg IV at which point he became more awake and alert. He then had multiple episodes of vomiting in route. NG tube was placed by the paramedics and they aspirated gastric contents and then removed s NG prior to arrival. His room air sats were reportedly 84% and he was placed on NR. Patient told Dr. Lovett that this was his first time using heroin and that he injected it. CXR demonstrated RLL opacity. He was started on Unasyn for aspiration pneumonia and given nebs. He eventually was intubated due to hypoxia with sats in high 80s despite nonrebreather. Lehr Stripper consulted for admission. 01/06: Remains sedated and intubated, requires PEEP 12 and FiO2 70%, will try to wean these today if tolerated. 01/07: Agitated overnight and this morning, 2 episodes where the patient bit down on ETT, desaturated, and became unstable. Not tolerating pressure support trials. 01/08: Remains sedated, orally intubated on mechanical ventilation. PEEP remains at +12. CT chest done today shows worsening consolidations. Pleural effusion. 01/09: Remains critically ill with severe bilateral lower lobe consolidated pneumonias. Requiring markedly elevated mean airway pressure still. Patient is nutritionally depleted and not responding well to our aggressive medical treatment. 01/10: Continued requirements for markedly elevated fractional inspiratory oxygen concentration. Continued dense consolidation in both lower lobes PEEP reduced to avoid overexpansion of upper lobes. 01/11: Converted to airway pressure release ventilation because of inability to oxygenate adequately. We will probably have to add Flolan. Lengthy discussion with family about the severity of his respiratory problems and pneumonia. 01/12: Some progress but remains with high A-aO2 gradient. ET tube above clavicles; repositioned. Copious foul secretions. High requirement requirements for analgesia and sedation due to alcohol history. Will continue methadone and start scheduled Librium in an attempt to lower the intravenous requirements. 01/13: Remains sedated, orally intubated on mechanical ventilation. 01/14: Remains sedated, orally intubated on mechanical ventilation. Remains on APRV mode. On inhaled Flolan. 01/15: Remains sedated, intubated on AP RV mode mechanical ventilation. Inhaled Flolan titrated down to 30 ng/kg/min. Placed on rotarest bed yesterday. Starting Lasix to mobilize fluid in view of positive fluid balance. 01/16: Dense consolidation right lower lobe causing severe shunting and hypoxemia. He will likely require pronating to drain the basilar lower lobes. Patient remains critically ill with an unrelenting bilateral pneumonia proving refractory to our best antibiotic and ventilatory interventions. 01/17: Persistent shunting through consolidated right lower lobe is producing profound hypoxemia. Presently requiring roto-rest bed and markedly elevated mean airway pressures on mechanical ventilation. Sputum obtained during alveolar lavage of the right lower lobe yesterday is still pending. Patient remains critically ill and generally edematous. 01/18: Not progressing on Roto-Rest bed. Remains on 65% FiO2, inhaled Flolan, AP RV mode mechanical ventilation. We will attempt to place on prone ventilation after neuromuscular blockade and switching to pressure control inverse ratio mode mechanical ventilation. Also placing Dobbhoff to see if he tolerates tube feeds better and will be placing central line 01/19: Placed on prone ventilation on 01/19 after switching to PC/AC PIP+18, PEEP+ 15, Rate 18, I :E 3.5:1, FiO2 65%. FiO2 requirement down to 40% with proning. Remains on inhaled flolan. On neuromuscular blockade. 01/20: Continues on prone ventilation. Flolan being titrated down. Chest x-ray showed significant improvement in aeration bilaterally. 01/21: Remains on prone ventilation. On sedation and neuromuscular blockade. Flolan off since yesterday. O2 sats dropped on attempting to titrate PEEP below 14. Remains on 45-50% FiO2, rate 18, I:E ratio 1.5 :1 01/22: Sedated, orally intubated on mechanical ventilation. Remains on prone ventilation. PCO2 climbing. Changed to PRVC mode, PEEP +12. Increased rate to 24 and tidal volume to 500 this morning in view of elevated PCO2 on ABG. Chest x-ray is essentially clear bilaterally. Obtaining lower extremity venous Dopplers to evaluate for DVT and a 2D echo. 01/23: Remains sedated, orally intubated on neuromuscular blockade. Stopping from ventilation today. On PRVC mode mechanical ventilation tidal volume 450, rate 18, FiO2 40%, PEEP +10. Decreased I time to 1.2 seconds. Gradually advancing Dobbhoff feeds. Plan on stopping neuromuscular blockade later today. 01/24: Intubated sedated remains on neuromuscular blockade. Worsening oxygenation FiO2 up to 60% PEEP increased to 12. Chest x-ray shows right-sided atelectasis versus airspace disease. Bronchoscopy performed and BAL sent. off prone therapy. Mother updated at the bedside 01/25: Patient remains intubated sedation lightened. Eyes are open withdraws lower extremities localizes with left upper extremity slightly withdraws right. Off Nimbex. FiO2 down to 50% PEEP now 10. Persistent right lower lobe infiltrate/effusion. Check CT chest to better evaluate. Status post bronchoscopy yesterday 01/26: Remains intubated sedated remains off Nimbex. More awake eyes are open spontaneously moving upper extremities though generalized weakness persist. Weaker on the lower extremity. FiO2 requirement has increased overnight now 55 % PEEP at 10. We will proceed with tracheostomy with general surgery Dr. Ivey. 01/27: Status post tracheostomy with acceptable airway pressures and improving oxygen requirements. Continues to look around a little bit better. Objective Vital Signs / I&O: Vital Signs 01/26/18 12:00 01/26/18 12:06 01/26/18 13:00 Temperature 98.8 F 99.0 F Pulse Rate 117 H 119 H Respiratory Rate 20 16 16 Blood Pressure Pulse Oximetry 97 95 97 01/26/18 14:00 01/26/18 15:00 01/26/18 16:00 Temperature 98.6 F 98.8 F 98.8 F Pulse Rate 131 H 126 H 124 H Respiratory Rate 17 16 16 Blood Pressure 146/96 H 146/96 H Pulse Oximetry 93 L 93 L 95 01/26/18 16:22 01/26/18 17:00 01/26/18 18:00 Temperature 99.0 F Pulse Rate 109 H 104 H Respiratory Rate 16 22 16 Blood Pressure 152/90 H 139/85 Pulse Oximetry 93 L 94 L 93 L 01/26/18 19:00 01/26/18 20:00 01/26/18 21:00 Temperature 99.3 F Pulse Rate 108 H 96 H 88 Respiratory Rate 17 16 16 Blood Pressure 145/84 H 126/76 128/80 Pulse Oximetry 94 L 92 L 100 01/26/18 21:29 01/26/18 22:00 01/26/18 23:00 Temperature Pulse Rate 91 H 101 H Respiratory Rate 16 16 16 Blood Pressure 133/81 135/83 Pulse Oximetry 97 96 97 01/26/18 23:52 01/27/18 00:00 01/27/18 01:00 Temperature 99.1 F Pulse Rate 108 H 95 H Respiratory Rate 17 17 16 Blood Pressure 139/88 127/73 Pulse Oximetry 94 L 93 L 92 L 01/27/18 02:00 01/27/18 03:00 01/27/18 03:38 Temperature Pulse Rate 88 96 H Respiratory Rate 16 16 16 Blood Pressure 125/77 139/92 H Pulse Oximetry 95 100 94 L 01/27/18 04:00 01/27/18 05:00 01/27/18 06:00 Temperature 99.6 F Pulse Rate 89 90 86 Respiratory Rate 16 16 16 Blood Pressure 124/72 125/76 122/69 Pulse Oximetry 94 L 94 L 93 L 01/27/18 07:00 01/27/18 07:30 01/27/18 08:00 Temperature 98.7 F Pulse Rate 90 104 H 109 H Respiratory Rate 16 17 27 H Blood Pressure 123/71 140/87 Pulse Oximetry 92 L 93 L 94 L 01/27/18 08:30 01/27/18 08:43 01/27/18 09:00 Temperature Pulse Rate 107 H 106 H Respiratory Rate 17 17 21 Blood Pressure 141/78 H Pulse Oximetry 93 L 93 L 94 L 01/27/18 09:30 01/27/18 10:00 Temperature Pulse Rate 100 H 101 H Respiratory Rate 16 17 Blood Pressure 139/81 Pulse Oximetry 94 L 93 L Intake & Output 01/26/18 01/27/18 01/27/18 18:59 06:59 18:59 Intake Total 770 / 770 660 / 660 450 / 450 Output Total 2800 / 2800 1125 / 1125 Balance -2030 / -2030 -465 / -465 450 / 450 Weight 74.1 kg Intake: IV 650 / 650 600 / 600 450 / 450 Diprivan 1000 mg/100 ml Inj 1, 200 / 200 200 / 200 100 / 100 000 mg In 100 ml @ 5 MCG/KG/MIN 2.585 mls/hr IV.CONT TITRATE PRN Rx#:[id number] KCl 20 mEq Premix Inj 20 meq In 400 / 400 100 / 100 100 ml @ 50 mls/hr IV.SIG Q2H PRN Rx#:[id number] KCl 40 mEq Premix Inj 40 meq In 200 / 200 100 ml @ 25 mls/hr IV.SIG Q2H PRN Rx#:[id number] fentaNYL 10 mcg/mL Premix Drip 250 / 250 250 / 250 2,500 mcg In 250 ml @ 50 MCG/HR 5 mls/hr IV.SIG TITRATE PRN Rx #:[id number] Water Bolus Amount 60 / 60 Other 120 / 120 Output: Stool 100 / 100 Urine Amount (Catheter) 2700 / 2700 1125 / 1125 Indwelling Urethral Catheter 2700 / 2700 1125 / 1125 Other: Date of Last Bowel Movement 01/26/18 01/25/18 01/25/18 Result Diagrams: 01/27/18 04:20 01/27/18 04:20 Objective Remarks: GEN: Intubated and sedated, off neuromuscular blockade HEENT: Reactive pupils. Trachea midline, new trach site clean and dry, CARDIO: S1-S2 regular, no murmur. Neck: Right IJ central line in place PULM: On mechanical ventilation, scattered rhonchi, no wheezing. PRVC PEEP 10, FiO2 50% ABD/GI: Soft, non-distended. No guarding, bowel sounds are active. No tenderness. EXT/MSK: 2+ peripheral edema, warm, adequately perfused. SKIN: No rashes or lesions. Skin blistering over abdominal wall and chest wall NEURO: Lightly sedated, localizes with left upper extremity weakly withdraws bilateral lower extremities. Attempts to track with eyes. Assessment and Plan - Problem List (1) Heroin overdose Code(s): T40.1X1A - Poisoning by heroin, accidental (unintentional), initial encounter Status: Acute (2) Polysubstance abuse Code(s): F19.10 - Other psychoactive substance abuse, uncomplicated Status: Chronic (3) Cocaine abuse Code(s): F14.10 - Cocaine abuse, uncomplicated Status: Acute (4) Elevated ETOH level Code(s): R78.0 - Finding of alcohol in blood Status: Acute (5) Marijuana abuse Code(s): F12.10 - Cannabis abuse, uncomplicated Status: Acute (6) TORREY (acute kidney injury) Code(s): N17.9 - Acute kidney failure, unspecified Status: Acute (7) Severe sepsis Code(s): A41.9 - Sepsis, unspecified organism; R65.20 - Severe sepsis without septic shock Status: Acute (8) Acute respiratory failure with hypoxia Code(s): J96.01 - Acute respiratory failure with hypoxia Status: Acute (9) Aspiration pneumonia Code(s): J69.0 - Pneumonitis due to inhalation of food and vomit Status: Acute (10) Vomiting Code(s): R11.10 - Vomiting, unspecified Status: Acute (11) Hyperglycemia Code(s): R73.9 - Hyperglycemia, unspecified Status: Acute (12) Protein-calorie malnutrition, moderate Code(s): E44.0 - Moderate protein-calorie malnutrition Status: Acute - Assessment and Plan Plan: NEURO: Heroin overdose Polysubstance abuse (marijuana, opiate, cocaine) Critical illness neuromyopathy Propofol/versed/fentanyl for sedation. Discontinued Nimbex 01/24/2018 Thiamine/multivitamin supplementation CT head negative. Tolerance to narcotic analgesia implies chronic narcotic use On methadone to wean fentanyl. Continue librium 25 mg p.o. twice daily PT/OT daily RESP: Acute hypoxemic respiratory failure Acute aspiration pneumonia New right lower lobe infiltrate Intubated in ED 01/05 due to hypoxia. inhaled Flolan discontinued on 01/21. Nimbex discontinued 01/24/2018 Initially on APRV mode which was switched to pressure control inverse ratio mechanical ventilation with Proning on 01/18. Changed to PRVC on 01/21 a.m. in view of elevated PCO2 to ensure adequate tidal volumes. Currently on conventional ventilation PRVC AC PEEP +10, rate 18, FiO2 55%. Bronchoscopy/BAL for right lower lobe new infiltrate. CT chest -bibasilar consolidation DuoNeb every 6 hours. Albuterol every 2 hours as needed. Previous CT chest with dense bilateral basilar consolidations and small right pleural effusion Considerable sputum withdrawn from right lower lobe on 01/16 during bronchoscopy , culture results normal alistair. Tracheostomy 01/26. CV: Telemetry and BP monitoring in ICU Being diuresed to mobilize fluid Lower extremity venous Dopplers negative for DVTs. F/U 2D echo to assess RV/LV function and for shunting. Echo Normal left ventricular size. Reduced EF 45-50%. GI: Continue tube feedings via Dobbhoff, advance to goal as tolerated. Having high residuals. Holding tube feeds for tracheostomy On Reglan IV. Zofran prn. FEN/RENAL: TORREY - suspect pre-renal secondary to overdose and sepsis, improved CPK is normal Urine output adequate Lasix 40 mg IV Q6H to mobilize fluid started on 01/19. Received Diamox on 01/20 and 01/21 for metabolic alkalosis secondary to diuresis with Lasix. ID: Severe Sepsis secondary to aspiration pneumonia Right lower lobe infiltrate MRSA swab negative Blood cultures from 01/05 growing staph epidermidis in both bottles, repeat cultures sent 01/06 no growth at 1 day Consulted ID for antibiotic management in view of worsening respiratory status/ sepsis. On Zosyn IV. Vancomycin discontinued. Restarted vancomycin 01/24/2018 for new right lower lobe infiltrate-if bronc cultures negative will discontinue- negative to date Ordered akers cultures on 01/22 due to fever and leukocytosis.-Negative to date HEME: No acute hematologic issues aside from leukocytosis. Coags are normal. Hemoglobin has remained stable. ENDO: Acute hyperglycemia Monitor bedside glucose every 6 hours and administer low-dose insulin sliding scale as indicated. Poor diabetic control has been an intermittent problem PROPH: -PPI -SCDs/restart Lovenox, held for trach ACCESS: RIJ central line placed 01/18-DC after establishing PIV OVERALL: This patient remains critically ill requiring high levels of ventilator support for aspiration pneumonia and heroin drug overdose. His initial response to aggressive medical therapy has been poor, undoubtedly related to chronic debilitation and poor baseline nutritional status. His long- term prognosis is guarded, largely due to concerns about his nutritional and immune status. He initially failed bilevel ventilation but did more poorly on conventional. Improved on prone ventilation, now on conventional PRVC/AC. He remains very unstable from a respiratory standpoint. He appears to be attempting to wake up more. Critical care time 38 minutes aside from procedures.
--- NOTE | 2018-01-27 13:49 | P.PCN ---
Date of procedure: 01/27/18 Pre-op diagnosis: Resp failure, unable to vent wean Post-op diagnosis: same Procedure: Percutaneous dilation tracheostomy Performed by Dr. Monteiro/Dr. Ram Informed consent was obtained family and documented in the chart. Neck was prepped with Betadine that was in the tracheostomy kit. Trachea was identified in the midline 2 fingerbreadths above the sternal notch. Area was anesthetized with the lidocaine with epinephrine within the tracheostomy Kit. Approximately half an inch vertical incision is made. Angiocath was placed into the trachea. A wire was threaded through the Angiocath under videoscopic guidance. The blue rhino punch was then used to dilate up the tracheal track. Blue Rhino was then placed over the guidewire to dilate followed by #8 Shiley tracheostomy placed over the 28 F loading dilator. The Blue Rhino and the guidewire were removed. The tracheostomy was secured in place with the suture supply within the tracheostomy kit. Bronchoscopic evaluation showed the tracheostomy tube in good position with minimal bleeding. Sutured and dressing applied and placed the on the ventilator with good tidal volume return. Estimated blood loss (mL): 2 Pathology: none sent Condition: critical Disposition: ICU
[2018-01-27 22:27] LABS: Albumin 2.6 g/dL (3.4-5.0); Anion Gap 12 meq/L (5-15); Aspartate Aminotransferase 32 U/L (15-37); Blood Urea Nitrogen 19 mg/dL (7-18); Calcium 9.6 mg/dL (8.5-10.1); Carbon Dioxide 28.5 meq/L (21.0-32.0); Chloride 99 meq/L (98-107); Glomerular Filtration Rate Greater Than 89 mL/min (>89); Glucose,Random 83 mg/dL (74-106); Potassium 3.1 meq/L (3.5-5.1); Sodium 139 meq/L (136-145)
[2018-01-27 22:28] LABS: Alanine Aminotransferase 24 U/L (12-78)
[2018-01-27 22:30] LABS: Alkaline Phosphatase 130 U/L (45-117); Total Protein 7.5 g/dL (6.4-8.2)
[2018-01-28] MEDS: Propofol 1000 mg/100 ml Inj 1,000 MG/100 ML BOTTLE IV.CONT PRN ×3 (00:10→10:52)
[2018-01-28] MEDS: Potassium Chlor 20 mEq Premix 20 MEQ/100 ML PIGGYBACK IV.SIG PRN ×5 (01:38→17:15)
[2018-01-28] MEDS: Methadone 10 MG Tablet PO SCH ×2 (03:05→17:12)
[2018-01-28] MEDS: Oral Hygiene Kit OROPHARYNG SCH ×4 (04:29→23:32)
[2018-01-28] MEDS: fentaNYL 10 mcg/mL Premix Drip 2,500 MCG/250 ML BAG IV.SIG PRN (04:48)
[2018-01-28] MEDS: Insulin NovoLOG Aspart Correctional Sugar Inj SQ SCH ×4 (05:55→23:32)
[2018-01-28] MEDS: Senna/Docusate Sodium 8.6/50 MG Tablet PO SCH ×2 (09:46→20:28)
[2018-01-28] MEDS: chlordiazePOXIDE 25 MG Capsule PO SCH (09:46)
[2018-01-28] MEDS: Famotidine PF Inj 20 MG/2 ML Vial IV.PUSH SCH ×2 (09:47→20:28)
[2018-01-28] MEDS: Chlorhexidine 0.12% Oral Kit 15 ML UDC OROPHARYNG SCH ×2 (09:50→20:28)
[2018-01-28] MEDS: Beneprotein Powder Packet G-TUBE SCH ×3 (11:56→17:47)
--- NOTE | 2018-01-28 12:16 | P.PNCC ---
Subjective Subjective Remarks/Hospital Course: 37-year-old male who is brought to [facility] emergency department after friends contacted [facility] due to decreased mental status with suspected heroin overdose. He had used heroin earlier in the evening. [facility] reportedly found him laying in emesis with a thready pulse. They gave him sequential doses of Narcan to a total of 2.4 mg IV at which point he became more awake and alert. He then had multiple episodes of vomiting in route. NG tube was placed by the paramedics and they aspirated gastric contents and then removed s NG prior to arrival. His room air sats were reportedly 84% and he was placed on NR. Patient told Dr. Lovett that this was his first time using heroin and that he injected it. CXR demonstrated RLL opacity. He was started on Unasyn for aspiration pneumonia and given nebs. He eventually was intubated due to hypoxia with sats in high 80s despite nonrebreather. Coordinator Of Placement consulted for admission. 01/06: Remains sedated and intubated, requires PEEP 12 and FiO2 70%, will try to wean these today if tolerated. 01/07: Agitated overnight and this morning, 2 episodes where the patient bit down on ETT, desaturated, and became unstable. Not tolerating pressure support trials. 01/08: Remains sedated, orally intubated on mechanical ventilation. PEEP remains at +12. CT chest done today shows worsening consolidations. Pleural effusion. 01/09: Remains critically ill with severe bilateral lower lobe consolidated pneumonias. Requiring markedly elevated mean airway pressure still. Patient is nutritionally depleted and not responding well to our aggressive medical treatment. 01/10: Continued requirements for markedly elevated fractional inspiratory oxygen concentration. Continued dense consolidation in both lower lobes PEEP reduced to avoid overexpansion of upper lobes. 01/11: Converted to airway pressure release ventilation because of inability to oxygenate adequately. We will probably have to add Flolan. Lengthy discussion with family about the severity of his respiratory problems and pneumonia. 01/12: Some progress but remains with high A-aO2 gradient. ET tube above clavicles; repositioned. Copious foul secretions. High requirement requirements for analgesia and sedation due to alcohol history. Will continue methadone and start scheduled Librium in an attempt to lower the intravenous requirements. 01/13: Remains sedated, orally intubated on mechanical ventilation. 01/14: Remains sedated, orally intubated on mechanical ventilation. Remains on APRV mode. On inhaled Flolan. 01/15: Remains sedated, intubated on AP RV mode mechanical ventilation. Inhaled Flolan titrated down to 30 ng/kg/min. Placed on rotarest bed yesterday. Starting Lasix to mobilize fluid in view of positive fluid balance. 01/16: Dense consolidation right lower lobe causing severe shunting and hypoxemia. He will likely require pronating to drain the basilar lower lobes. Patient remains critically ill with an unrelenting bilateral pneumonia proving refractory to our best antibiotic and ventilatory interventions. 01/17: Persistent shunting through consolidated right lower lobe is producing profound hypoxemia. Presently requiring roto-rest bed and markedly elevated mean airway pressures on mechanical ventilation. Sputum obtained during alveolar lavage of the right lower lobe yesterday is still pending. Patient remains critically ill and generally edematous. 01/18: Not progressing on Roto-Rest bed. Remains on 65% FiO2, inhaled Flolan, AP RV mode mechanical ventilation. We will attempt to place on prone ventilation after neuromuscular blockade and switching to pressure control inverse ratio mode mechanical ventilation. Also placing Dobbhoff to see if he tolerates tube feeds better and will be placing central line 01/19: Placed on prone ventilation on 01/19 after switching to PC/AC PIP+18, PEEP+ 15, Rate 18, I :E 3.5:1, FiO2 65%. FiO2 requirement down to 40% with proning. Remains on inhaled flolan. On neuromuscular blockade. 01/20: Continues on prone ventilation. Flolan being titrated down. Chest x-ray showed significant improvement in aeration bilaterally. 01/21: Remains on prone ventilation. On sedation and neuromuscular blockade. Flolan off since yesterday. O2 sats dropped on attempting to titrate PEEP below 14. Remains on 45-50% FiO2, rate 18, I:E ratio 1.5 :1 01/22: Sedated, orally intubated on mechanical ventilation. Remains on prone ventilation. PCO2 climbing. Changed to PRVC mode, PEEP +12. Increased rate to 24 and tidal volume to 500 this morning in view of elevated PCO2 on ABG. Chest x-ray is essentially clear bilaterally. Obtaining lower extremity venous Dopplers to evaluate for DVT and a 2D echo. 01/23: Remains sedated, orally intubated on neuromuscular blockade. Stopping from ventilation today. On PRVC mode mechanical ventilation tidal volume 450, rate 18, FiO2 40%, PEEP +10. Decreased I time to 1.2 seconds. Gradually advancing Dobbhoff feeds. Plan on stopping neuromuscular blockade later today. 01/24: Intubated sedated remains on neuromuscular blockade. Worsening oxygenation FiO2 up to 60% PEEP increased to 12. Chest x-ray shows right-sided atelectasis versus airspace disease. Bronchoscopy performed and BAL sent. off prone therapy. Mother updated at the bedside 01/25: Patient remains intubated sedation lightened. Eyes are open withdraws lower extremities localizes with left upper extremity slightly withdraws right. Off Nimbex. FiO2 down to 50% PEEP now 10. Persistent right lower lobe infiltrate/effusion. Check CT chest to better evaluate. Status post bronchoscopy yesterday 01/26: Remains intubated sedated remains off Nimbex. More awake eyes are open spontaneously moving upper extremities though generalized weakness persist. Weaker on the lower extremity. FiO2 requirement has increased overnight now 55 % PEEP at 10. We will proceed with tracheostomy with general surgery Dr. Ivey. 01/27: Status post tracheostomy with acceptable airway pressures and improving oxygen requirements. Continues to look around a little bit better. 01/28: TM temperature max 101.1, leukocytosis worsening. Neurologic function remains the same. Chest x-ray with clear gorman but unable to see behind the liver well. Objective Vital Signs / I&O: Vital Signs 01/27/18 12:30 01/27/18 13:00 01/27/18 13:30 Temperature Pulse Rate 100 H 127 H 108 H Respiratory Rate 16 16 18 Blood Pressure 159/99 H Pulse Oximetry 98 80 L 95 01/27/18 14:00 01/27/18 14:12 01/27/18 14:17 Temperature Pulse Rate 109 H 108 H 101 H Respiratory Rate 16 18 16 Blood Pressure 156/91 H 149/85 H 133/67 Pulse Oximetry 95 95 95 01/27/18 14:21 01/27/18 14:23 01/27/18 14:25 Temperature Pulse Rate 100 H 99 H 95 H Respiratory Rate 16 16 16 Blood Pressure 138/79 144/85 H 134/76 Pulse Oximetry 94 L 95 95 01/27/18 14:28 01/27/18 14:30 01/27/18 14:33 Temperature Pulse Rate 96 H 93 H 95 H Respiratory Rate 17 19 16 Blood Pressure 141/81 H 137/81 140/81 Pulse Oximetry 96 95 94 L 01/27/18 14:35 01/27/18 14:38 01/27/18 14:40 Temperature Pulse Rate 96 H 97 H 96 H Respiratory Rate 16 16 16 Blood Pressure 138/81 135/78 135/79 Pulse Oximetry 95 95 95 01/27/18 14:43 01/27/18 14:45 01/27/18 15:00 Temperature Pulse Rate 100 H 99 H 98 H Respiratory Rate 16 16 16 Blood Pressure 143/89 H 139/89 Pulse Oximetry 95 95 94 L 01/27/18 15:15 01/27/18 15:30 01/27/18 16:00 Temperature 100.1 F H Pulse Rate 99 H 97 H 102 H Respiratory Rate 16 16 23 Blood Pressure 138/89 142/87 H 141/87 H Pulse Oximetry 94 L 94 L 94 L 01/27/18 16:30 01/27/18 16:45 01/27/18 17:00 Temperature Pulse Rate 98 H 98 H Respiratory Rate 20 16 18 Blood Pressure 141/90 H 141/90 H Pulse Oximetry 94 L 95 94 L 01/27/18 17:30 01/27/18 17:48 01/27/18 18:00 Temperature Pulse Rate 101 H 103 H 105 H Respiratory Rate 24 21 Blood Pressure 137/85 140/84 Pulse Oximetry 94 L 93 L 01/27/18 18:30 01/27/18 19:00 01/27/18 19:30 Temperature Pulse Rate 102 H 101 H 101 H Respiratory Rate 16 17 16 Blood Pressure 138/82 141/83 H 135/84 Pulse Oximetry 94 L 95 95 01/27/18 20:00 01/27/18 20:30 01/27/18 21:00 Temperature 99.4 F Pulse Rate 106 H 100 H 100 H Respiratory Rate 21 16 16 Blood Pressure 139/84 139/85 138/86 Pulse Oximetry 95 95 95 01/27/18 21:18 01/27/18 21:30 01/27/18 22:00 Temperature Pulse Rate 101 H 99 H Respiratory Rate 18 16 16 Blood Pressure 141/89 H 140/82 Pulse Oximetry 95 95 93 L 01/27/18 22:30 01/27/18 23:00 12/12/18 23:30 Temperature Pulse Rate 98 H 107 H 110 H Respiratory Rate 17 19 28 H Blood Pressure 140/84 145/93 H 151/101 H Pulse Oximetry 94 L 94 L 94 L 01/28/18 00:00 01/28/18 00:30 01/28/18 01:00 Temperature 99.9 F H Pulse Rate 106 H 106 H 103 H Respiratory Rate 18 18 16 Blood Pressure 147/93 H 148/87 H 143/85 H Pulse Oximetry 93 L 93 L 94 L 01/28/18 01:30 01/28/18 01:56 01/28/18 02:00 Temperature Pulse Rate 96 H 92 H Respiratory Rate 16 16 16 Blood Pressure 119/68 117/71 Pulse Oximetry 94 L 94 L 94 L 01/28/18 02:30 01/28/18 03:00 01/28/18 03:30 Temperature Pulse Rate 90 89 90 Respiratory Rate 16 16 16 Blood Pressure 117/71 117/73 114/72 Pulse Oximetry 94 L 94 L 94 L 01/28/18 04:00 01/28/18 04:02 01/28/18 04:29 Temperature 98.8 F Pulse Rate 94 H 98 H Respiratory Rate 17 21 18 Blood Pressure 144/78 H Pulse Oximetry 95 94 L 95 01/28/18 04:30 01/28/18 05:00 01/28/18 05:30 Temperature Pulse Rate 100 H 98 H 107 H Respiratory Rate 16 17 16 Blood Pressure 141/86 H 137/95 H 133/88 Pulse Oximetry 95 96 96 01/28/18 06:00 01/28/18 07:00 01/28/18 08:00 Temperature 99.1 F Pulse Rate 92 H 88 95 H Respiratory Rate 16 16 17 Blood Pressure 123/75 126/78 127/79 Pulse Oximetry 96 97 96 01/28/18 09:00 01/28/18 10:00 01/28/18 11:00 Temperature Pulse Rate 86 84 86 Respiratory Rate 16 16 17 Blood Pressure 124/72 124/73 120/76 Pulse Oximetry 97 97 95 01/28/18 11:30 01/28/18 11:46 Temperature Pulse Rate 84 Respiratory Rate 18 17 Blood Pressure 119/66 Pulse Oximetry 95 95 Intake & Output 01/27/18 01/28/18 01/28/18 18:59 06:59 18:59 Intake Total 800 / 800 810 / 810 200 / 200 Output Total 1800 / 1800 2450 / 2450 Balance -1000 / -1000 -1640 / -1640 200 / 200 Weight 71.8 kg Intake: IV 750 / 750 750 / 750 100 / 100 Diprivan 1000 mg/100 ml Inj 1, 200 / 200 200 / 200 100 / 100 000 mg In 100 ml @ 5 MCG/KG/MIN 2.585 mls/hr IV.CONT TITRATE PRN Rx#:[id number] KCl 20 mEq Premix Inj 20 meq In 200 / 200 300 / 300 100 ml @ 50 mls/hr IV.SIG Q2H PRN Rx#:[id number] Ancef Inj 1,000 MG In NS Inj 100 / 100 100 ML @ 200 mls/hr IV.SIG PREPRESS PROOFER VU Rx#:[id number] fentaNYL 10 mcg/mL Premix Drip 250 / 250 250 / 250 2,500 mcg In 250 ml @ 50 MCG/HR 5 mls/hr IV.SIG TITRATE PRN Rx #:[id number] Tube Irrigant 60 / 60 Water Bolus Amount 100 / 100 Anesthesia Amount 50 / 50 Output: Stool 50 / 50 Urine Amount (Catheter) 1800 / 1800 2400 / 2400 Indwelling Urethral Catheter 1800 / 1800 2400 / 2400 Other: Date of Last Bowel Movement 01/25/18 01/28/18 01/28/18 Result Diagrams: 01/27/18 04:20 01/27/18 21:54 Objective Remarks: GEN: Intubated, calm HEENT: Reactive pupils to 1 mm. Trachea midline, new trach site clean and dry, CARDIO: S1-S2 regular, no murmur. Neck: Right IJ central line in place PULM: On mechanical ventilation, scattered rhonchi persist, no wheezing. ABD/GI: Soft, non-distended. No guarding, bowel sounds present. EXT/MSK: 1+ peripheral edema, warm, adequately perfused. SKIN: No rashes or lesions. Skin blistering over abdominal wall and chest wall NEURO: Lightly sedated, localizes with left upper extremity weakly withdraws both lower extremities to noxious stimulation. Attempts to track with eyes but does not focus. Breathes spontaneously over the ventilator. Assessment and Plan - Problem List (1) Heroin overdose Code(s): T40.1X1A - Poisoning by heroin, accidental (unintentional), initial encounter Status: Acute (2) Polysubstance abuse Code(s): F19.10 - Other psychoactive substance abuse, uncomplicated Status: Chronic (3) Cocaine abuse Code(s): F14.10 - Cocaine abuse, uncomplicated Status: Acute (4) Elevated ETOH level Code(s): R78.0 - Finding of alcohol in blood Status: Acute (5) Marijuana abuse Code(s): F12.10 - Cannabis abuse, uncomplicated Status: Acute (6) TORREY (acute kidney injury) Code(s): N17.9 - Acute kidney failure, unspecified Status: Acute (7) Severe sepsis Code(s): A41.9 - Sepsis, unspecified organism; R65.20 - Severe sepsis without septic shock Status: Acute (8) Acute respiratory failure with hypoxia Code(s): J96.01 - Acute respiratory failure with hypoxia Status: Acute (9) Aspiration pneumonia Code(s): J69.0 - Pneumonitis due to inhalation of food and vomit Status: Acute (10) Vomiting Code(s): R11.10 - Vomiting, unspecified Status: Acute (11) Hyperglycemia Code(s): R73.9 - Hyperglycemia, unspecified Status: Acute (12) Protein-calorie malnutrition, moderate Code(s): E44.0 - Moderate protein-calorie malnutrition Status: Acute - Assessment and Plan Plan: NEURO: Heroin overdose Polysubstance abuse (marijuana, opiate, cocaine) Critical illness neuromyopathy Propofol/versed/fentanyl for sedation. Discontinued Nimbex 01/24/2018 Thiamine/multivitamin supplementation CT head negative. Tolerance to narcotic analgesia implies chronic narcotic use On methadone to wean fentanyl. Taper off Librium 25 mg p.o. twice daily PT/OT daily RESP: Acute hypoxemic respiratory failure Acute aspiration pneumonia New right lower lobe infiltrate Intubated in ED 01/05 due to hypoxia. inhaled Flolan discontinued on 01/21. Nimbex discontinued 01/24/2018 Initially on APRV mode which was switched to pressure control inverse ratio mechanical ventilation with Proning on 01/18. Changed to PRVC on 01/21 a.m. in view of elevated PCO2 to ensure adequate tidal volumes. Currently on conventional ventilation PRVC AC PEEP +10, rate 18, FiO2 55%. Bronchoscopy/BAL for right lower lobe new infiltrate. CT chest -bibasilar consolidation DuoNeb every 6 hours. Albuterol every 2 hours as needed. Previous CT chest with dense bilateral basilar consolidations and small right pleural effusion Considerable sputum withdrawn from right lower lobe on 01/16 during bronchoscopy , culture results normal alistair. Tracheostomy 01/26. CV: Telemetry and BP monitoring in ICU Being diuresed to mobilize fluid Lower extremity venous Dopplers negative for DVTs. F/U 2D echo to assess RV/LV function and for shunting. Echo Normal left ventricular size. Reduced EF 45-50%. GI: Continue tube feedings via Dobbhoff, advance to goal as tolerated. Having high residuals. Holding tube feeds for tracheostomy On Reglan IV. Zofran prn. FEN/RENAL: TORREY - suspect pre-renal secondary to overdose and sepsis, improved CPK is normal Urine output adequate Lasix 40 mg IV Q6H to mobilize fluid started on 01/19. Received Diamox on 01/20 and 01/21 for metabolic alkalosis secondary to diuresis with Lasix. ID: Severe Sepsis secondary to aspiration pneumonia Right lower lobe infiltrate MRSA swab negative Blood cultures from 01/05 growing staph epidermidis in both bottles, repeat cultures sent 01/06 no growth at 1 day Consulted ID for antibiotic management in view of worsening respiratory status/ sepsis. On Zosyn IV. Vancomycin discontinued. Restarted vancomycin 01/24/2018 for new right lower lobe infiltrate-if bronc cultures negative will discontinue- negative to date Ordered akers cultures on 01/22 due to fever and leukocytosis.-Negative to date HEME: No acute hematologic issues aside from leukocytosis. Coags are normal. Hemoglobin has remained stable. ENDO: Acute hyperglycemia Monitor bedside glucose every 6 hours and administer low-dose insulin sliding scale as indicated. Poor diabetic control has been an intermittent problem PROPH: -PPI -SCDs/restart Lovenox, held for trach ACCESS: RIJ central line placed 01/18-DC after establishing PIV OVERALL: This patient remains critically ill requiring high levels of ventilator support for aspiration pneumonia and heroin drug overdose. His initial response to aggressive medical therapy has been poor, undoubtedly related to chronic debilitation and poor baseline nutritional status. His long- term prognosis is guarded, largely due to concerns about his nutritional and immune status. He initially failed bilevel ventilation but did more poorly on conventional. Improved on prone ventilation, now on conventional PRVC/AC. He remains very unstable from a respiratory standpoint. Critical care time 35 minutes aside from procedures.
--- NOTE | 2018-01-28 17:40 | P.PNGI ---
Subjective Interval history: Tolerating TF ok, site looks good Physical Exam Vital signs: Vital Signs 01/27/18 17:48 01/27/18 18:00 01/27/18 18:30 Temperature Pulse Rate 103 H 105 H 102 H Respiratory Rate 21 16 Blood Pressure 140/84 138/82 Pulse Oximetry 93 L 94 L 01/27/18 19:00 01/27/18 19:30 01/27/18 20:00 Temperature 99.4 F Pulse Rate 101 H 101 H 106 H Respiratory Rate 17 16 21 Blood Pressure 141/83 H 135/84 139/84 Pulse Oximetry 95 95 95 01/27/18 20:30 01/27/18 21:00 01/27/18 21:18 Temperature Pulse Rate 100 H 100 H Respiratory Rate 16 16 18 Blood Pressure 139/85 138/86 Pulse Oximetry 95 95 95 01/27/18 21:30 01/27/18 22:00 01/27/18 22:30 Temperature Pulse Rate 101 H 99 H 98 H Respiratory Rate 16 16 17 Blood Pressure 141/89 H 140/82 140/84 Pulse Oximetry 95 93 L 94 L 01/27/18 23:00 01/27/18 23:30 01/28/18 00:00 Temperature 99.9 F H Pulse Rate 107 H 110 H 106 H Respiratory Rate 19 28 H 18 Blood Pressure 145/93 H 151/101 H 147/93 H Pulse Oximetry 94 L 94 L 93 L 01/28/18 00:30 01/28/18 01:00 01/28/18 01:30 Temperature Pulse Rate 106 H 103 H 96 H Respiratory Rate 18 16 16 Blood Pressure 148/87 H 143/85 H 119/68 Pulse Oximetry 93 L 94 L 94 L 01/28/18 01:56 01/28/18 02:00 01/28/18 02:30 Temperature Pulse Rate 92 H 90 Respiratory Rate 16 16 16 Blood Pressure 117/71 117/71 Pulse Oximetry 94 L 94 L 94 L 01/28/18 03:00 01/28/18 03:30 01/28/18 04:00 Temperature 98.8 F Pulse Rate 89 90 94 H Respiratory Rate 16 16 17 Blood Pressure 117/73 114/72 Pulse Oximetry 94 L 94 L 95 01/28/18 04:02 01/28/18 04:29 01/28/18 04:30 Temperature Pulse Rate 98 H 100 H Respiratory Rate 21 18 16 Blood Pressure 144/78 H 141/86 H Pulse Oximetry 94 L 95 95 01/28/18 05:00 01/28/18 05:30 01/28/18 06:00 Temperature Pulse Rate 98 H 107 H 92 H Respiratory Rate 17 16 16 Blood Pressure 137/95 H 133/88 123/75 Pulse Oximetry 96 96 96 01/28/18 07:00 01/28/18 08:00 01/28/18 09:00 Temperature 99.1 F Pulse Rate 88 95 H 86 Respiratory Rate 16 17 16 Blood Pressure 126/78 127/79 124/72 Pulse Oximetry 97 96 97 01/28/18 10:00 01/28/18 11:00 01/28/18 11:30 Temperature Pulse Rate 84 86 84 Respiratory Rate 16 17 18 Blood Pressure 124/73 120/76 119/66 Pulse Oximetry 97 95 95 01/28/18 11:46 01/28/18 12:00 01/28/18 13:00 Temperature 99.0 F Pulse Rate 84 103 H Respiratory Rate 17 19 16 Blood Pressure 121/73 135/82 Pulse Oximetry 95 95 95 01/28/18 14:00 01/28/18 15:00 01/28/18 15:30 Temperature Pulse Rate 104 H 101 H 95 H Respiratory Rate 17 18 14 Blood Pressure 139/82 142/87 H Pulse Oximetry 90 L 93 L 96 01/28/18 16:00 01/28/18 17:00 01/28/18 17:27 Temperature 98.9 F Pulse Rate 97 H 102 H Respiratory Rate 17 26 H 18 Blood Pressure 135/93 H 142/88 H Pulse Oximetry 95 96 94 L Intake & Output 01/27/18 01/28/18 01/28/18 18:59 06:59 18:59 Intake Total 800 / 800 810 / 810 600 / 600 Output Total 1800 / 1800 2450 / 2450 Balance -1000 / -1000 -1640 / -1640 600 / 600 Weight 71.8 kg Intake: IV 750 / 750 750 / 750 300 / 300 Diprivan 1000 mg/100 ml Inj 1, 200 / 200 200 / 200 100 / 100 000 mg In 100 ml @ 5 MCG/KG/MIN 2.585 mls/hr IV.CONT TITRATE PRN Rx#:[id number] KCl 20 mEq Premix Inj 20 meq In 200 / 200 300 / 300 200 / 200 100 ml @ 50 mls/hr IV.SIG Q2H PRN Rx#:[id number] Ancef Inj 1,000 MG In NS Inj 100 / 100 100 ML @ 200 mls/hr IV.SIG FIRER GLOST KILN [facility] Rx#:[id number] fentaNYL 10 mcg/mL Premix Drip 250 / 250 250 / 250 2,500 mcg In 250 ml @ 50 MCG/HR 5 mls/hr IV.SIG TITRATE PRN Rx #:[id number] Tube Irrigant 60 / 60 Water Bolus Amount 300 / 300 Anesthesia Amount 50 / 50 Output: Stool 50 / 50 Urine Amount (Catheter) 1800 / 1800 2400 / 2400 Indwelling Urethral Catheter 1800 / 1800 2400 / 2400 Other: Date of Last Bowel Movement 01/25/18 01/28/18 01/28/18 Narrative: GEN: Awake CARDIO: S1-S2 regular, no murmur. Neck: Right IJ central line in place PULM: On mechanical ventilation via trach, scattered rhonchi ABD/GI: Soft, non-distended. No guarding, bowel sounds present. EXT/MSK: 1+ peripheral edema, warm, adequately perfused. SKIN: No rashes or lesions. NEURO: Lightly sedated, - Urinary Catheter Management Indwelling Urethral Catheter Cath placed during this visit: yes, but has since been removed by the nurse Reason for continuing: Decision to DC catheter Insertion date: 01/18/18 Insertion time: 09:10 Removal date: 01/28/18 Removal time: 06:00 Results - Labs CBC & Chem 7: 01/27/18 04:20 01/28/18 12:20 Laboratory Results - last 24 hr 01/27/18 01/27/18 01/27/18 17:31 21:54 23:29 Sodium 139 Potassium 3.1 L Chloride 99 Carbon Dioxide 28.5 Anion Gap 12 BUN 19 H Creatinine 0.62 Estimated GFR Greater than 89 POC Glucose 91 85 Random Glucose 83 Calcium 9.6 Total Bilirubin 0.7 AST 32 ALT 24 Alkaline Phosphatase 130 H Total Protein 7.5 Albumin 2.6 L 01/28/18 01/28/18 01/28/18 05:26 12:20 12:24 Sodium Potassium 3.5 Chloride Carbon Dioxide Anion Gap BUN Creatinine Estimated GFR POC Glucose 89 83 Random Glucose Calcium Total Bilirubin AST ALT Alkaline Phosphatase Total Protein Albumin 01/28/18 15:45 Sodium Potassium Chloride Carbon Dioxide Anion Gap BUN Creatinine Estimated GFR POC Glucose 84 Random Glucose Calcium Total Bilirubin AST ALT Alkaline Phosphatase Total Protein Albumin Assessment and Plan - Plan This patient is a 37-year-old male who was brought to [facility] emergency room post heroin overdose. Patient is now post placement of tracheostomy and is mechanically ventilated. Sinus tach in the 110's on electronic device monitor blood pressure 114/68 patient currently with 95-96% saturation. Propofol and fentanyl currently infusing. Patient has NG tube in place with Oxepa infusing at 20 mL's per hour as per dietary recommendation. Dignity shield in place with moderate amount of brown stool noted. Our service has been consulted to evaluate patient for PEG tube placement. 01/28/18 S/P EGD/PEG on 01/27/18 Plan -tube feedings per recommendations - Flush tube every feeding - GI will sign off -Supportive care This patient has been seen by myself and Dr. Nieto and this note is written on his behalf
[2018-01-29] MEDS: fentaNYL 10 mcg/mL Premix Drip 2,500 MCG/250 ML BAG IV.SIG PRN (02:07)
[2018-01-29] MEDS: Oral Hygiene Kit OROPHARYNG SCH ×4 (03:16→23:17)
[2018-01-29] MEDS: Methadone 10 MG Tablet PO SCH ×2 (03:16→15:17)
[2018-01-29 05:21] LABS: Baso # (Auto) 0.2 th/mm3 (0.0-0.2); Baso % (Auto) 1.4 % (0.0-2.0); Eos # (Auto) 0.8 th/mm3 (0.0-0.4); Eos % (Auto) 4.6 % (0.0-4.0); Hematocrit 34.6 % (39.0-51.0); Hemoglobin 11.8 gm/dL (13.0-17.0); Lymph # (Auto) 2.1 th/mm3 (1.0-4.8); Lymph % (Auto) 12.4 % (9.0-44.0); Mean Corpuscular Hemoglobin 31.5 pg (27.0-34.0); Mean Corpuscular Volume 92.5 fL (80.0-100.0); Mean Platelet Volume 8.8 fL (7.0-11.0); Mono % (Auto) 11.8 % (0.0-8.0); Neut # (Auto) 11.7 th/mm3 (1.8-7.7); Neut % (Auto) 69.8 % (16.0-70.0); Platelet Count 554 th/mm3 (150-450); Red Blood Count 3.74 mil/mm3 (4.50-5.90); Red Cell Distribution Width 13.2 % (11.6-17.2); White Blood Count 16.8 th/mm3 (4.0-11.0)
[2018-01-29] MEDS: Insulin NovoLOG Aspart Correctional Sugar Inj SQ SCH ×4 (05:57→23:16)
[2018-01-29 05:59] LABS: Albumin 2.9 g/dL (3.4-5.0); Anion Gap 10 meq/L (5-15); Aspartate Aminotransferase 33 U/L (15-37); Blood Urea Nitrogen 23 mg/dL (7-18); Calcium 9.6 mg/dL (8.5-10.1); Carbon Dioxide 31.4 meq/L (21.0-32.0); Chloride 97 meq/L (98-107); Glomerular Filtration Rate Greater Than 89 mL/min (>89); Glucose,Random 104 mg/dL (74-106); Potassium 3.3 meq/L (3.5-5.1); Sodium 138 meq/L (136-145)
[2018-01-29 06:00] LABS: Alanine Aminotransferase 29 U/L (12-78)
[2018-01-29] MEDS: Potassium Chlor 20 mEq Premix 20 MEQ/100 ML PIGGYBACK IV.SIG PRN ×2 (06:01→08:32)
[2018-01-29 06:02] LABS: Alkaline Phosphatase 151 U/L (45-117); Total Protein 8.1 g/dL (6.4-8.2)
[2018-01-29] MEDS: Chlorhexidine 0.12% Oral Kit 15 ML UDC OROPHARYNG SCH ×2 (08:33→20:53)
[2018-01-29] MEDS: chlordiazePOXIDE 25 MG Capsule PO SCH (08:33)
[2018-01-29] MEDS: Famotidine PF Inj 20 MG/2 ML Vial IV.PUSH SCH ×2 (08:33→20:53)
[2018-01-29] MEDS: Senna/Docusate Sodium 8.6/50 MG Tablet PO SCH ×2 (08:33→20:54)
[2018-01-29] MEDS: Beneprotein Powder Packet G-TUBE SCH ×3 (08:33→18:28)
--- NOTE | 2018-01-29 11:19 | P.DIET ---
Nutritional Evaluation Type of nutrition evaluation: follow-up Nutrition consult regarding: Tube Feeding Objective - Diagnosis Respiratory Failure s/p heroin overdose - Objective % IBW: 103 (IBW = 178#) Energy Needs - Lower Range (kCal/kg): 28 Energy Needs - Upper Range (kCal/kg): 32 Lower Limit kCal/kg (kCals): 2,327 Upper Limit kCal/kg (kCals): 2,659 Lower Limit Protein Factor (Grams per Kg): 1.2 Upper Limit Protein Factor (Grams per Kg): 1.6 Lower Protein Needs (Protein): 100 Upper Protein Needs (Protein): 133 Dietitian Reviewed in Medical Record: Curent medications, Intake & Output, Labs , Medical history, Tube feeding Diet Order: NPO Assessment Assessment: Pt remains at high nutrition risk 2' to the need for TFing. TF of Oxepa @ 20 mls /hr running and this provides 720 kcals and 30 gms protein. Recommend Jevity 1.5 @ 65 mls/hr to provide 2340 kcals, 100 gms protein and 1186 mls of free water. Beneprotein as ordered will provide 36 additional grams of protein. Labs , wts and clinical course reviewed. Hardware Assembler's note states "concern for nutritional status". Please note that the pt has been significantly underfed since admission. Recommendations: Jevity 1.5 @ 65 mls/hr goal Beneprotein as ordered Dietitian to Monitor: Lab values, Tube feeding tolerance, Weight change, Medical course
--- NOTE | 2018-01-29 12:48 | P.PNID ---
Infectious Disease Brief Note Vital Signs - 24 hr Patient is clinically stable at this point from ID standpoint. Continue to monitor without antibiotics. I will sign off now. Please call if further input is needed.
--- NOTE | 2018-01-29 14:56 | P.PNCC ---
Subjective Subjective Remarks/Hospital Course: 37-year-old male who is brought to [facility] emergency department after friends contacted [facility] due to decreased mental status with suspected heroin overdose. He had used heroin earlier in the evening. [facility] reportedly found him laying in emesis with a thready pulse. They gave him sequential doses of Narcan to a total of 2.4 mg IV at which point he became more awake and alert. He then had multiple episodes of vomiting in route. NG tube was placed by the paramedics and they aspirated gastric contents and then removed s NG prior to arrival. His room air sats were reportedly 84% and he was placed on NR. Patient told Dr. Lovett that this was his first time using heroin and that he injected it. CXR demonstrated RLL opacity. He was started on Unasyn for aspiration pneumonia and given nebs. He eventually was intubated due to hypoxia with sats in high 80s despite nonrebreather. Time Clerk consulted for admission. 01/06: Remains sedated and intubated, requires PEEP 12 and FiO2 70%, will try to wean these today if tolerated. 01/07: Agitated overnight and this morning, 2 episodes where the patient bit down on ETT, desaturated, and became unstable. Not tolerating pressure support trials. 01/08: Remains sedated, orally intubated on mechanical ventilation. PEEP remains at +12. CT chest done today shows worsening consolidations. Pleural effusion. 01/09: Remains critically ill with severe bilateral lower lobe consolidated pneumonias. Requiring markedly elevated mean airway pressure still. Patient is nutritionally depleted and not responding well to our aggressive medical treatment. 01/10: Continued requirements for markedly elevated fractional inspiratory oxygen concentration. Continued dense consolidation in both lower lobes PEEP reduced to avoid overexpansion of upper lobes. 01/11: Converted to airway pressure release ventilation because of inability to oxygenate adequately. We will probably have to add Flolan. Lengthy discussion with family about the severity of his respiratory problems and pneumonia. 01/12: Some progress but remains with high A-aO2 gradient. ET tube above clavicles; repositioned. Copious foul secretions. High requirement requirements for analgesia and sedation due to alcohol history. Will continue methadone and start scheduled Librium in an attempt to lower the intravenous requirements. 01/13: Remains sedated, orally intubated on mechanical ventilation. 01/14: Remains sedated, orally intubated on mechanical ventilation. Remains on APRV mode. On inhaled Flolan. 01/15: Remains sedated, intubated on AP RV mode mechanical ventilation. Inhaled Flolan titrated down to 30 ng/kg/min. Placed on rotarest bed yesterday. Starting Lasix to mobilize fluid in view of positive fluid balance. 01/16: Dense consolidation right lower lobe causing severe shunting and hypoxemia. He will likely require pronating to drain the basilar lower lobes. Patient remains critically ill with an unrelenting bilateral pneumonia proving refractory to our best antibiotic and ventilatory interventions. 01/17: Persistent shunting through consolidated right lower lobe is producing profound hypoxemia. Presently requiring roto-rest bed and markedly elevated mean airway pressures on mechanical ventilation. Sputum obtained during alveolar lavage of the right lower lobe yesterday is still pending. Patient remains critically ill and generally edematous. 01/18: Not progressing on Roto-Rest bed. Remains on 65% FiO2, inhaled Flolan, AP RV mode mechanical ventilation. We will attempt to place on prone ventilation after neuromuscular blockade and switching to pressure control inverse ratio mode mechanical ventilation. Also placing Dobbhoff to see if he tolerates tube feeds better and will be placing central line 01/19: Placed on prone ventilation on 01/19 after switching to PC/AC PIP+18, PEEP+ 15, Rate 18, I :E 3.5:1, FiO2 65%. FiO2 requirement down to 40% with proning. Remains on inhaled flolan. On neuromuscular blockade. 01/20: Continues on prone ventilation. Flolan being titrated down. Chest x-ray showed significant improvement in aeration bilaterally. 01/21: Remains on prone ventilation. On sedation and neuromuscular blockade. Flolan off since yesterday. O2 sats dropped on attempting to titrate PEEP below 14. Remains on 45-50% FiO2, rate 18, I:E ratio 1.5 :1 01/22: Sedated, orally intubated on mechanical ventilation. Remains on prone ventilation. PCO2 climbing. Changed to PRVC mode, PEEP +12. Increased rate to 24 and tidal volume to 500 this morning in view of elevated PCO2 on ABG. Chest x-ray is essentially clear bilaterally. Obtaining lower extremity venous Dopplers to evaluate for DVT and a 2D echo. 01/23: Remains sedated, orally intubated on neuromuscular blockade. Stopping from ventilation today. On PRVC mode mechanical ventilation tidal volume 450, rate 18, FiO2 40%, PEEP +10. Decreased I time to 1.2 seconds. Gradually advancing Dobbhoff feeds. Plan on stopping neuromuscular blockade later today. 01/24: Intubated sedated remains on neuromuscular blockade. Worsening oxygenation FiO2 up to 60% PEEP increased to 12. Chest x-ray shows right-sided atelectasis versus airspace disease. Bronchoscopy performed and BAL sent. off prone therapy. Mother updated at the bedside 01/25: Patient remains intubated sedation lightened. Eyes are open withdraws lower extremities localizes with left upper extremity slightly withdraws right. Off Nimbex. FiO2 down to 50% PEEP now 10. Persistent right lower lobe infiltrate/effusion. Check CT chest to better evaluate. Status post bronchoscopy yesterday 01/26: Remains intubated sedated remains off Nimbex. More awake eyes are open spontaneously moving upper extremities though generalized weakness persist. Weaker on the lower extremity. FiO2 requirement has increased overnight now 55 % PEEP at 10. We will proceed with tracheostomy with general surgery Dr. Ivey. 01/27: Status post tracheostomy with acceptable airway pressures and improving oxygen requirements. Continues to look around a little bit better. 01/28: TM temperature max 101.1, leukocytosis worsening. Neurologic function remains the same. Chest x-ray with clear gorman but unable to see behind the liver well. 01/29: Much more alert today. Up in chair breathing comfortably on T-piece. Continuing enteral nutrition. Objective Vital Signs / I&O: Vital Signs 01/28/18 15:00 01/28/18 15:30 01/28/18 16:00 Temperature 98.9 F Pulse Rate 101 H 95 H 97 H Respiratory Rate 18 14 17 Blood Pressure 142/87 H 135/93 H Pulse Oximetry 93 L 96 95 01/28/18 17:00 01/28/18 17:27 01/28/18 18:00 Temperature Pulse Rate 102 H 107 H Respiratory Rate 26 H 18 13 Blood Pressure 142/88 H 138/80 Pulse Oximetry 96 94 L 94 L 01/28/18 19:00 01/28/18 19:30 01/28/18 20:00 Temperature 99.1 F Pulse Rate 103 H 108 H 106 H Respiratory Rate 14 16 16 Blood Pressure 177/89 H 147/85 H 138/83 Pulse Oximetry 94 L 94 L 94 L 01/28/18 20:16 01/28/18 20:30 01/28/18 21:00 Temperature Pulse Rate 103 H 98 H Respiratory Rate 20 16 16 Blood Pressure 132/77 135/86 Pulse Oximetry 94 L 95 96 01/28/18 21:30 01/28/18 22:00 01/28/18 22:30 Temperature Pulse Rate 101 H 106 H 98 H Respiratory Rate 17 17 17 Blood Pressure 134/84 134/77 133/81 Pulse Oximetry 93 L 94 L 94 L 01/28/18 23:00 01/28/18 23:30 01/29/18 00:00 Temperature 99.0 F Pulse Rate 103 H 104 H 103 H Respiratory Rate 17 16 21 Blood Pressure 137/80 132/81 Pulse Oximetry 95 92 L 94 L 01/29/18 00:05 01/29/18 00:30 01/29/18 00:35 Temperature Pulse Rate 107 H 98 H Respiratory Rate 20 16 17 Blood Pressure 133/87 146/90 H Pulse Oximetry 93 L 92 L 01/29/18 01:00 01/29/18 01:30 01/29/18 02:00 Temperature Pulse Rate 101 H 102 H 103 H Respiratory Rate 16 16 16 Blood Pressure 145/90 H 141/85 H 143/87 H Pulse Oximetry 94 L 93 L 95 01/29/18 02:30 01/29/18 03:00 01/29/18 03:30 Temperature Pulse Rate 107 H 99 H 98 H Respiratory Rate 15 16 16 Blood Pressure 144/91 H 145/85 H 140/78 Pulse Oximetry 94 L 95 95 01/29/18 03:39 01/29/18 04:00 01/29/18 04:30 Temperature 99.2 F Pulse Rate 101 H 103 H Respiratory Rate 19 19 17 Blood Pressure 146/93 H 164/94 H Pulse Oximetry 96 94 L 95 01/29/18 05:00 01/29/18 05:30 01/29/18 06:00 Temperature Pulse Rate 96 H 104 H 94 H Respiratory Rate 16 16 16 Blood Pressure 158/79 H 136/79 127/81 Pulse Oximetry 92 L 94 L 93 L 01/29/18 06:30 01/29/18 07:00 01/29/18 08:00 Temperature 98.7 F Pulse Rate 102 H 95 H 94 H Respiratory Rate 17 16 16 Blood Pressure 129/77 143/75 H Pulse Oximetry 94 L 95 94 L 01/29/18 08:13 01/29/18 09:00 01/29/18 10:00 Temperature Pulse Rate 95 H 98 H Respiratory Rate 13 14 Blood Pressure 145/80 H 165/90 H Pulse Oximetry 93 L 94 L 01/29/18 11:00 01/29/18 12:00 01/29/18 12:01 Temperature 98.8 F Pulse Rate 96 H 105 H Respiratory Rate 16 14 12 Blood Pressure 135/80 129/84 Pulse Oximetry 95 96 95 01/29/18 13:00 01/29/18 14:00 Temperature Pulse Rate 104 H 104 H Respiratory Rate 14 17 Blood Pressure 127/84 138/91 H Pulse Oximetry 92 L 96 Intake & Output 01/28/18 01/29/18 01/29/18 18:59 06:59 18:59 Intake Total 800 / 800 753 / 753 580 / 580 Output Total 1350 / 1350 2650 / 2650 100 / 100 Balance -550 / -550 -1897 / -1897 480 / 480 Weight 72 kg Intake: IV 300 / 300 350 / 350 100 / 100 Diprivan 1000 mg/100 ml Inj 1, 100 / 100 000 mg In 100 ml @ 5 MCG/KG/MIN 2.585 mls/hr IV.CONT TITRATE PRN Rx#:[id number] KCl 20 mEq Premix Inj 20 meq In 200 / 200 100 / 100 100 / 100 100 ml @ 50 mls/hr IV.SIG Q2H PRN Rx#:[id number] fentaNYL 10 mcg/mL Premix Drip 250 / 250 2,500 mcg In 250 ml @ 50 MCG/HR 5 mls/hr IV.SIG TITRATE PRN Rx #:[id number] Tube Feeding 343 / 343 Water Bolus Amount 500 / 500 60 / 60 480 / 480 Output: Urine 1350 / 1350 Stool 50 / 50 Urine Amount (Catheter) 2600 / 2600 Condom 2600 / 2600 Gastric Drainage 100 / 100 Gastrostomy Tube (PEG) 100 / 100 Other: # Incontinent Voids 1 Date of Last Bowel Movement 01/28/18 01/29/18 01/29/18 Result Diagrams: 01/29/18 04:46 01/29/18 04:46 Objective Remarks: GEN: Intubated, calm HEENT: Reactive pupils to 1 mm. Trachea midline, new trach site clean and dry, CARDIO: S1-S2 regular, no murmur. Neck: Central line site clean, line has been removed PULM: Few scattered rhonchi persist, no wheezing. Comfortable respiratory pattern on T-piece. ABD/GI: Soft, non-distended. No guarding, bowel sounds present. EXT/MSK: 1+ peripheral edema, warm, adequately perfused. SKIN: No rashes or lesions. Skin blistering over abdominal wall and chest wall NEURO: Opens eyes and tracks well. Attempts to focus. Moves 4 limbs spontaneously. Very weak. Assessment and Plan - Problem List (1) Heroin overdose Code(s): T40.1X1A - Poisoning by heroin, accidental (unintentional), initial encounter Status: Acute (2) Polysubstance abuse Code(s): F19.10 - Other psychoactive substance abuse, uncomplicated Status: Chronic (3) Cocaine abuse Code(s): F14.10 - Cocaine abuse, uncomplicated Status: Acute (4) Elevated ETOH level Code(s): R78.0 - Finding of alcohol in blood Status: Acute (5) Marijuana abuse Code(s): F12.10 - Cannabis abuse, uncomplicated Status: Acute (6) TORREY (acute kidney injury) Code(s): N17.9 - Acute kidney failure, unspecified Status: Acute (7) Severe sepsis Code(s): A41.9 - Sepsis, unspecified organism; R65.20 - Severe sepsis without septic shock Status: Acute (8) Acute respiratory failure with hypoxia Code(s): J96.01 - Acute respiratory failure with hypoxia Status: Acute (9) Aspiration pneumonia Code(s): J69.0 - Pneumonitis due to inhalation of food and vomit Status: Acute (10) Vomiting Code(s): R11.10 - Vomiting, unspecified Status: Acute (11) Hyperglycemia Code(s): R73.9 - Hyperglycemia, unspecified Status: Acute (12) Protein-calorie malnutrition, moderate Code(s): E44.0 - Moderate protein-calorie malnutrition Status: Acute - Assessment and Plan Plan: NEURO: Heroin overdose Polysubstance abuse (marijuana, opiate, cocaine) Critical illness neuromyopathy Propofol/versed/fentanyl for sedation. Discontinued Nimbex 01/24/2018 Thiamine/multivitamin supplementation CT head negative. Tolerance to narcotic analgesia implies chronic narcotic use On methadone to wean fentanyl. PT/OT daily Librium has been discontinued RESP: Acute hypoxemic respiratory failure Acute aspiration pneumonia New right lower lobe infiltrate Intubated in ED 01/05 due to hypoxia. inhaled Flolan discontinued on 01/21. Nimbex discontinued 01/24/2018 Initially on APRV mode which was switched to pressure control inverse ratio mechanical ventilation with Proning on 01/18. Changed to PRVC on 01/21 a.m. in view of elevated PCO2 to ensure adequate tidal volumes. Currently on conventional ventilation PRVC AC PEEP +10, rate 18, FiO2 55%. Bronchoscopy/BAL for right lower lobe new infiltrate. CT chest -bibasilar consolidation DuoNeb every 6 hours. Albuterol every 2 hours as needed. Previous CT chest with dense bilateral basilar consolidations and small right pleural effusion Considerable sputum withdrawn from right lower lobe on 01/16 during bronchoscopy , culture results normal alistair. Tracheostomy 01/26. CV: Telemetry and BP monitoring in ICU Being diuresed to mobilize fluid Lower extremity venous Dopplers negative for DVTs. F/U 2D echo to assess RV/LV function and for shunting. Echo Normal left ventricular size. Reduced EF 45-50%. GI: Continue tube feedings via Dobbhoff, advance to goal as tolerated. Having high residuals. Holding tube feeds for tracheostomy On Reglan IV. Zofran prn. FEN/RENAL: TORREY - suspect pre-renal secondary to overdose and sepsis, improved CPK is normal Urine output adequate Lasix 40 mg IV Q6H to mobilize fluid started on 01/19. Received Diamox on 01/20 and 01/21 for metabolic alkalosis secondary to diuresis with Lasix. ID: Severe Sepsis secondary to aspiration pneumonia Right lower lobe infiltrate MRSA swab negative Blood cultures from 01/05 growing staph epidermidis in both bottles, repeat cultures sent 01/06 no growth at 1 day Consulted ID for antibiotic management in view of worsening respiratory status/ sepsis. On Zosyn IV. Vancomycin discontinued. Restarted vancomycin 01/24/2018 for new right lower lobe infiltrate-if bronc cultures negative will discontinue- negative to date Cultures negative to date HEME: No acute hematologic issues aside from leukocytosis. Coags are normal. Hemoglobin has remained stable. ENDO: Acute hyperglycemia Monitor bedside glucose every 6 hours and administer low-dose insulin sliding scale as indicated. Poor diabetic control has been an intermittent problem PROPH: -PPI -SCDs/restart Lovenox, held for trach ACCESS: RIJ central line placed 01/18-DC after establishing PIV OVERALL: This patient arrived to us critically ill requiring high levels of ventilator support for aspiration pneumonia and heroin drug overdose. His initial response to aggressive medical therapy has been poor, undoubtedly related to chronic debilitation and poor baseline nutritional status. His long- term prognosis was guarded, largely due to concerns about his nutritional and immune status. He initially failed bilevel ventilation but did more poorly on conventional. Improved on prone ventilation, now on conventional PRVC/AC. We are finally making some progress in clearing his pneumonia and weaning from the ventilator.
[2018-01-30] MEDS: Oral Hygiene Kit OROPHARYNG SCH ×3 (03:38→15:40)
[2018-01-30] MEDS: Methadone 10 MG Tablet PO SCH ×2 (03:38→15:40)
[2018-01-30 05:49] LABS: Baso # (Auto) 0.3 th/mm3 (0.0-0.2); Baso % (Auto) 1.4 % (0.0-2.0); Eos # (Auto) 0.9 th/mm3 (0.0-0.4); Eos % (Auto) 5.1 % (0.0-4.0); Hematocrit 35.8 % (39.0-51.0); Hemoglobin 12.6 gm/dL (13.0-17.0); Lymph # (Auto) 2.2 th/mm3 (1.0-4.8); Lymph % (Auto) 12.2 % (9.0-44.0); Mean Corpuscular HGB Conc 35.1 % (32.0-36.0); Mean Corpuscular Hemoglobin 31.9 pg (27.0-34.0); Mean Corpuscular Volume 90.8 fL (80.0-100.0); Mean Platelet Volume 8.9 fL (7.0-11.0); Mono # (Auto) 1.9 th/mm3 (0.0-0.9); Mono % (Auto) 10.3 % (0.0-8.0); Neut # (Auto) 12.9 th/mm3 (1.8-7.7); Platelet Count 577 th/mm3 (150-450); Red Blood Count 3.94 mil/mm3 (4.50-5.90); Red Cell Distribution Width 13.2 % (11.6-17.2); White Blood Count 18.2 th/mm3 (4.0-11.0)
[2018-01-30] MEDS: Insulin NovoLOG Aspart Correctional Sugar Inj SQ SCH ×2 (06:02→11:56)
[2018-01-30] MEDS: Beneprotein Powder Packet G-TUBE SCH ×3 (09:25→18:00)
[2018-01-30] MEDS: Chlorhexidine 0.12% Oral Kit 15 ML UDC OROPHARYNG SCH ×2 (09:25→20:40)
[2018-01-30] MEDS: Senna/Docusate Sodium 8.6/50 MG Tablet PO SCH ×2 (09:26→20:11)
[2018-01-30] MEDS: chlordiazePOXIDE 25 MG Capsule PO SCH (10:01)
[2018-01-30] MEDS: Famotidine PF Inj 20 MG/2 ML Vial IV.PUSH SCH ×2 (10:02→20:10)
--- NOTE | 2018-01-30 13:50 | P.PNCC ---
Subjective Subjective Remarks/Hospital Course: 37-year-old male who is brought to [facility] emergency department after friends contacted [facility] due to decreased mental status with suspected heroin overdose. He had used heroin earlier in the evening. [facility] reportedly found him laying in emesis with a thready pulse. They gave him sequential doses of Narcan to a total of 2.4 mg IV at which point he became more awake and alert. He then had multiple episodes of vomiting in route. NG tube was placed by the paramedics and they aspirated gastric contents and then removed s NG prior to arrival. His room air sats were reportedly 84% and he was placed on NR. Patient told Dr. Lovett that this was his first time using heroin and that he injected it. CXR demonstrated RLL opacity. He was started on Unasyn for aspiration pneumonia and given nebs. He eventually was intubated due to hypoxia with sats in high 80s despite nonrebreather. Instrumentation Designer consulted for admission. 01/06: Remains sedated and intubated, requires PEEP 12 and FiO2 70%, will try to wean these today if tolerated. 01/07: Agitated overnight and this morning, 2 episodes where the patient bit down on ETT, desaturated, and became unstable. Not tolerating pressure support trials. 01/08: Remains sedated, orally intubated on mechanical ventilation. PEEP remains at +12. CT chest done today shows worsening consolidations. Pleural effusion. 01/09: Remains critically ill with severe bilateral lower lobe consolidated pneumonias. Requiring markedly elevated mean airway pressure still. Patient is nutritionally depleted and not responding well to our aggressive medical treatment. 01/10: Continued requirements for markedly elevated fractional inspiratory oxygen concentration. Continued dense consolidation in both lower lobes PEEP reduced to avoid overexpansion of upper lobes. 01/11: Converted to airway pressure release ventilation because of inability to oxygenate adequately. We will probably have to add Flolan. Lengthy discussion with family about the severity of his respiratory problems and pneumonia. 01/12: Some progress but remains with high A-aO2 gradient. ET tube above clavicles; repositioned. Copious foul secretions. High requirement requirements for analgesia and sedation due to alcohol history. Will continue methadone and start scheduled Librium in an attempt to lower the intravenous requirements. 01/13: Remains sedated, orally intubated on mechanical ventilation. 01/14: Remains sedated, orally intubated on mechanical ventilation. Remains on APRV mode. On inhaled Flolan. 01/15: Remains sedated, intubated on AP RV mode mechanical ventilation. Inhaled Flolan titrated down to 30 ng/kg/min. Placed on rotarest bed yesterday. Starting Lasix to mobilize fluid in view of positive fluid balance. 01/16: Dense consolidation right lower lobe causing severe shunting and hypoxemia. He will likely require pronating to drain the basilar lower lobes. Patient remains critically ill with an unrelenting bilateral pneumonia proving refractory to our best antibiotic and ventilatory interventions. 01/17: Persistent shunting through consolidated right lower lobe is producing profound hypoxemia. Presently requiring roto-rest bed and markedly elevated mean airway pressures on mechanical ventilation. Sputum obtained during alveolar lavage of the right lower lobe yesterday is still pending. Patient remains critically ill and generally edematous. 01/18: Not progressing on Roto-Rest bed. Remains on 65% FiO2, inhaled Flolan, AP RV mode mechanical ventilation. We will attempt to place on prone ventilation after neuromuscular blockade and switching to pressure control inverse ratio mode mechanical ventilation. Also placing Dobbhoff to see if he tolerates tube feeds better and will be placing central line 01/19: Placed on prone ventilation on 01/19 after switching to PC/AC PIP+18, PEEP+ 15, Rate 18, I :E 3.5:1, FiO2 65%. FiO2 requirement down to 40% with proning. Remains on inhaled flolan. On neuromuscular blockade. 01/20: Continues on prone ventilation. Flolan being titrated down. Chest x-ray showed significant improvement in aeration bilaterally. 01/21: Remains on prone ventilation. On sedation and neuromuscular blockade. Flolan off since yesterday. O2 sats dropped on attempting to titrate PEEP below 14. Remains on 45-50% FiO2, rate 18, I:E ratio 1.5 :1 01/22: Sedated, orally intubated on mechanical ventilation. Remains on prone ventilation. PCO2 climbing. Changed to PRVC mode, PEEP +12. Increased rate to 24 and tidal volume to 500 this morning in view of elevated PCO2 on ABG. Chest x-ray is essentially clear bilaterally. Obtaining lower extremity venous Dopplers to evaluate for DVT and a 2D echo. 01/23: Remains sedated, orally intubated on neuromuscular blockade. Stopping from ventilation today. On PRVC mode mechanical ventilation tidal volume 450, rate 18, FiO2 40%, PEEP +10. Decreased I time to 1.2 seconds. Gradually advancing Dobbhoff feeds. Plan on stopping neuromuscular blockade later today. 01/24: Intubated sedated remains on neuromuscular blockade. Worsening oxygenation FiO2 up to 60% PEEP increased to 12. Chest x-ray shows right-sided atelectasis versus airspace disease. Bronchoscopy performed and BAL sent. off prone therapy. Mother updated at the bedside 01/25: Patient remains intubated sedation lightened. Eyes are open withdraws lower extremities localizes with left upper extremity slightly withdraws right. Off Nimbex. FiO2 down to 50% PEEP now 10. Persistent right lower lobe infiltrate/effusion. Check CT chest to better evaluate. Status post bronchoscopy yesterday 01/26: Remains intubated sedated remains off Nimbex. More awake eyes are open spontaneously moving upper extremities though generalized weakness persist. Weaker on the lower extremity. FiO2 requirement has increased overnight now 55 % PEEP at 10. We will proceed with tracheostomy with general surgery Dr. Ivey. 01/27: Status post tracheostomy with acceptable airway pressures and improving oxygen requirements. Continues to look around a little bit better. 01/28: TM temperature max 101.1, leukocytosis worsening. Neurologic function remains the same. Chest x-ray with clear gorman but unable to see behind the liver well. 01/29: Much more alert today. Up in chair breathing comfortably on T-piece. Continuing enteral nutrition. 01/30: Remains alert today, interactive through head nods, smiling occasionally. Seems to recognize family at bedside. Tolerating extending spontaneous breathing trials. We will work toward T-piece. Persistent leukocytosis is worrisome and we will investigate thoroughly. Objective Vital Signs / I&O: Vital Signs 01/29/18 14:00 01/29/18 15:00 01/29/18 15:30 Temperature Pulse Rate 104 H 99 H Respiratory Rate 17 16 Blood Pressure 138/91 H 130/73 Pulse Oximetry 96 95 93 L 01/29/18 16:00 01/29/18 17:00 01/29/18 18:00 Temperature 98.8 F Pulse Rate 108 H 107 H 106 H Respiratory Rate 21 20 22 Blood Pressure 133/78 135/78 147/90 H Pulse Oximetry 92 L 94 L 93 L 01/29/18 18:30 01/29/18 19:00 01/29/18 19:30 Temperature Pulse Rate 111 H 106 H Respiratory Rate 19 19 Blood Pressure 149/94 H 141/93 H 146/91 H Pulse Oximetry 97 98 01/29/18 20:00 01/29/18 20:29 01/29/18 20:30 Temperature 98.6 F Pulse Rate 105 H 104 H Respiratory Rate 18 15 17 Blood Pressure 138/89 140/88 Pulse Oximetry 94 L 94 L 96 01/29/18 21:00 01/29/18 21:30 01/29/18 22:00 Temperature Pulse Rate 99 H 99 H 96 H Respiratory Rate 12 15 16 Blood Pressure 140/90 129/81 120/75 Pulse Oximetry 95 95 95 01/29/18 22:30 01/29/18 23:00 01/29/18 23:30 Temperature Pulse Rate 97 H 91 H 104 H Respiratory Rate 18 17 16 Blood Pressure 119/76 123/81 139/90 Pulse Oximetry 95 96 93 L 01/30/18 00:00 01/30/18 00:10 01/30/18 00:30 Temperature 98.6 F Pulse Rate 109 H 102 H Respiratory Rate 14 22 15 Blood Pressure 132/83 135/85 Pulse Oximetry 94 L 93 L 95 01/30/18 01:00 01/30/18 01:30 01/30/18 02:00 Temperature Pulse Rate 101 H 100 H 100 H Respiratory Rate 13 13 14 Blood Pressure 138/87 137/79 Pulse Oximetry 95 95 95 01/30/18 02:30 01/30/18 03:00 01/30/18 03:01 Temperature Pulse Rate 100 H 95 H 93 H Respiratory Rate 13 20 18 Blood Pressure 146/85 H 139/91 H Pulse Oximetry 95 95 95 01/30/18 03:30 01/30/18 04:00 01/30/18 04:30 Temperature 98.7 F Pulse Rate 94 H 97 H 95 H Respiratory Rate 13 20 14 Blood Pressure 130/86 132/87 145/86 H Pulse Oximetry 95 98 97 01/30/18 05:00 01/30/18 05:02 01/30/18 05:30 Temperature Pulse Rate 99 H 95 H Respiratory Rate 17 17 14 Blood Pressure 132/85 126/78 Pulse Oximetry 96 97 96 01/30/18 06:00 01/30/18 06:30 01/30/18 07:00 Temperature Pulse Rate 97 H 94 H 97 H Respiratory Rate 13 13 17 Blood Pressure 136/83 131/82 132/82 Pulse Oximetry 96 95 96 01/30/18 07:30 01/30/18 08:00 01/30/18 08:13 Temperature 98.5 F Pulse Rate 92 H 97 H Respiratory Rate 18 16 14 Blood Pressure 131/78 132/79 Pulse Oximetry 96 95 94 L 01/30/18 08:30 01/30/18 09:00 01/30/18 09:30 Temperature Pulse Rate 99 H 91 H 91 H Respiratory Rate 14 12 13 Blood Pressure 132/79 121/72 123/73 Pulse Oximetry 92 L 92 L 93 L 01/30/18 10:00 01/30/18 10:30 01/30/18 11:00 Temperature Pulse Rate 96 H 103 H 104 H Respiratory Rate 13 13 13 Blood Pressure 129/81 130/81 131/77 Pulse Oximetry 95 92 L 91 L 01/30/18 11:30 01/30/18 11:45 01/30/18 12:00 Temperature 98.1 F Pulse Rate 107 H 114 H Respiratory Rate 19 13 17 Blood Pressure 129/82 133/86 Pulse Oximetry 90 L 92 L 91 L Intake & Output 01/29/18 01/30/18 01/30/18 18:59 06:59 18:59 Intake Total 1200 / 1200 470 / 470 250 / 250 Output Total 1090 / 1090 1999 / 1999 Balance 110 / 110 -1530 / -1530 250 / 250 Weight 71.7 kg Intake: IV 200 / 200 250 / 250 KCl 20 mEq Premix Inj 20 meq In 200 / 200 100 ml @ 50 mls/hr IV.SIG Q2H PRN Rx#:[id number] fentaNYL 10 mcg/mL Premix Drip 250 / 250 2,500 mcg In 250 ml @ 50 MCG/HR 5 mls/hr IV.SIG TITRATE PRN Rx #:[id number] Tube Feeding 240 / 240 250 / 250 Tube Irrigant 120 / 120 Water Bolus Amount 760 / 760 100 / 100 Output: Stool 40 / 40 Urine Amount (Catheter) 950 / 950 2000 / 2000 Condom 950 / 950 2000 / 1999 Gastric Drainage 100 / 100 Gastrostomy Tube (PEG) 100 / 100 Other: Date of Last Bowel Movement 01/29/18 01/29/1801/29/18 Result Diagrams: 01/30/18 05:17 01/30/18 10:03 Objective Remarks: GEN: Alert HEENT: Trachea midline, new trach site clean and dry, CARDIO: S1-S2 regular, no murmur. Neck: Supple. PULM: Few scattered rhonchi persist, no wheezing. Comfortable respiratory pattern on CPAP ABD/GI: Soft, non-distended. No guarding, bowel sounds present. EXT/MSK: 1+ peripheral edema, warm, adequately perfused. SKIN: No rashes or lesions. Superficial blisters drying nicely. NEURO: Opens eyes and tracks well. Now focusing. Moves 4 limbs spontaneously. Very weak but interactive. Assessment and Plan - Problem List (1) Heroin overdose Code(s): T40.1X1A - Poisoning by heroin, accidental (unintentional), initial encounter Status: Acute (2) Polysubstance abuse Code(s): F19.10 - Other psychoactive substance abuse, uncomplicated Status: Chronic (3) Cocaine abuse Code(s): F14.10 - Cocaine abuse, uncomplicated Status: Acute (4) Elevated ETOH level Code(s): R78.0 - Finding of alcohol in blood Status: Acute (5) Marijuana abuse Code(s): F12.10 - Cannabis abuse, uncomplicated Status: Acute (6) TORREY (acute kidney injury) Code(s): N17.9 - Acute kidney failure, unspecified Status: Acute (7) Severe sepsis Code(s): A41.9 - Sepsis, unspecified organism; R65.20 - Severe sepsis without septic shock Status: Acute (8) Acute respiratory failure with hypoxia Code(s): J96.01 - Acute respiratory failure with hypoxia Status: Acute (9) Aspiration pneumonia Code(s): J69.0 - Pneumonitis due to inhalation of food and vomit Status: Acute (10) Vomiting Code(s): R11.10 - Vomiting, unspecified Status: Acute (11) Hyperglycemia Code(s): R73.9 - Hyperglycemia, unspecified Status: Acute (12) Protein-calorie malnutrition, moderate Code(s): E44.0 - Moderate protein-calorie malnutrition Status: Acute - Assessment and Plan Plan: NEURO: Heroin overdose Polysubstance abuse (marijuana, opiate, cocaine) Critical illness neuromyopathy Propofol/versed/fentanyl for sedation. Discontinued Nimbex 01/24/2018 Thiamine/multivitamin supplementation CT head negative. Tolerance to narcotic analgesia implies chronic narcotic use On methadone and weaned fentanyl. PT/OT daily Librium has been discontinued and patient is more alert RESP: Acute hypoxemic respiratory failure Acute aspiration pneumonia New right lower lobe infiltrate Intubated in ED 01/05 due to hypoxia. inhaled Flolan discontinued on 01/21. Nimbex discontinued 01/24/2018 Initially on APRV mode which was switched to pressure control inverse ratio mechanical ventilation with Proning on 01/18. Changed to PRVC on 01/21 a.m. in view of elevated PCO2 to ensure adequate tidal volumes. Currently on conventional ventilation PRVC AC PEEP +10, rate 18, FiO2 55%. Bronchoscopy/BAL for right lower lobe new infiltrate. CT chest -bibasilar consolidation DuoNeb every 6 hours. Albuterol every 2 hours as needed. Previous CT chest with dense bilateral basilar consolidations and small right pleural effusion Considerable sputum withdrawn from right lower lobe on 01/16 during bronchoscopy , culture results normal alistair. Tracheostomy 01/26. CV: Telemetry and BP monitoring in ICU Being diuresed to mobilize fluid Lower extremity venous Dopplers negative for DVTs. F/U 2D echo to assess RV/LV function and for shunting. Echo Normal left ventricular size. Reduced EF 45-50%. GI: Continue tube feedings via Dobbhoff, advance to goal as tolerated. Having high residuals. Holding tube feeds for tracheostomy On Reglan IV. Zofran prn. Continue tube feeds on the clock FEN/RENAL: TORREY - suspect pre-renal secondary to overdose and sepsis, improved CPK is normal Urine output adequate Discontinue intravenous fluid. Received Diamox on 01/20 and 01/21 for metabolic alkalosis secondary to diuresis with Lasix. ID: Severe Sepsis secondary to aspiration pneumonia Right lower lobe infiltrate MRSA swab negative Blood cultures from 01/05 growing staph epidermidis in both bottles, repeat cultures sent 01/06 no growth at 1 day Consulted ID for antibiotic management in view of worsening respiratory status/ sepsis. On Zosyn IV. Vancomycin discontinued. Restarted vancomycin 01/24/2018 for new right lower lobe infiltrate-if bronc cultures negative will discontinue- negative to date Cultures negative to date Lung gorman have cleared nicely. Right hemidiaphragm is elevated due to intestine above the liver. HEME: No acute hematologic issues aside from leukocytosis. Coags are normal. Hemoglobin has remained stable. ENDO: Acute hyperglycemia Monitor bedside glucose every 6 hours and administer low-dose insulin sliding scale as indicated. Poor diabetic control has been an intermittent problem PROPH: -PPI -SCDs/ Lovenox ACCESS: Peripheral lines OVERALL: This patient arrived to us critically ill requiring high levels of ventilator support for aspiration pneumonia and heroin drug overdose. His initial response to aggressive medical therapy has been poor, undoubtedly related to chronic debilitation and poor baseline nutritional status. His long- term prognosis was guarded, largely due to concerns about his nutritional and immune status. He initially failed bilevel ventilation but did more poorly on conventional. Improved on prone ventilation, now on conventional PRVC/AC. We are finally making some progress in clearing his pneumonia and weaning from the ventilator. Another good day today for the patient.
[2018-01-31] MEDS: Methadone 10 MG Tablet PO SCH ×2 (03:44→15:00)
[2018-01-31] MEDS: Oral Hygiene Kit OROPHARYNG SCH ×4 (05:41→16:08)
[2018-01-31 06:04] LABS: Baso # (Auto) 0.2 th/mm3 (0.0-0.2); Baso % (Auto) 1.1 % (0.0-2.0); Eos # (Auto) 0.7 th/mm3 (0.0-0.4); Eos % (Auto) 3.2 % (0.0-4.0); Hemoglobin 12.9 gm/dL (13.0-17.0); Lymph # (Auto) 2.2 th/mm3 (1.0-4.8); Lymph % (Auto) 9.5 % (9.0-44.0); Mean Corpuscular HGB Conc 34.9 % (32.0-36.0); Mean Corpuscular Hemoglobin 31.7 pg (27.0-34.0); Mean Corpuscular Volume 90.9 fL (80.0-100.0); Mean Platelet Volume 9.1 fL (7.0-11.0); Mono # (Auto) 2.8 th/mm3 (0.0-0.9); Mono % (Auto) 12.1 % (0.0-8.0); Neut # (Auto) 17.1 th/mm3 (1.8-7.7); Neut % (Auto) 74.1 % (16.0-70.0); Platelet Count 568 th/mm3 (150-450); Red Blood Count 4.08 mil/mm3 (4.50-5.90); Red Cell Distribution Width 13.3 % (11.6-17.2); White Blood Count 23.1 th/mm3 (4.0-11.0)
[2018-01-31 07:26] LABS: Eosinophils 4 % (0-4); Lymphocytes 11 % (9-44); Metamyelocytes 1 % (0-1); Monocytes 13 % (0-8)
[2018-01-31 07:27] LABS: Platelet Morphology Normal (Normal); RBC Morphology Normal (Normal)
[2018-01-31] MEDS: Chlorhexidine 0.12% Oral Kit 15 ML UDC OROPHARYNG SCH ×2 (08:06→20:08)
[2018-01-31] MEDS: Senna/Docusate Sodium 8.6/50 MG Tablet PO SCH ×2 (08:52→20:07)
[2018-01-31] MEDS: Famotidine PF Inj 20 MG/2 ML Vial IV.PUSH SCH ×2 (08:52→20:07)
[2018-01-31] MEDS: Beneprotein Powder Packet G-TUBE SCH ×3 (08:53→17:31)
--- NOTE | 2018-01-31 12:54 | P.PNCC ---
Subjective Subjective Remarks/Hospital Course: 37-year-old male who is brought to [facility] emergency department after friends contacted [facility] due to decreased mental status with suspected heroin overdose. He had used heroin earlier in the evening. [facility] reportedly found him laying in emesis with a thready pulse. They gave him sequential doses of Narcan to a total of 2.4 mg IV at which point he became more awake and alert. He then had multiple episodes of vomiting in route. NG tube was placed by the paramedics and they aspirated gastric contents and then removed s NG prior to arrival. His room air sats were reportedly 84% and he was placed on NR. Patient told Dr. Lovett that this was his first time using heroin and that he injected it. CXR demonstrated RLL opacity. He was started on Unasyn for aspiration pneumonia and given nebs. He eventually was intubated due to hypoxia with sats in high 80s despite nonrebreather. Property Inspector consulted for admission. 01/06: Remains sedated and intubated, requires PEEP 12 and FiO2 70%, will try to wean these today if tolerated. 01/07: Agitated overnight and this morning, 2 episodes where the patient bit down on ETT, desaturated, and became unstable. Not tolerating pressure support trials. 01/08: Remains sedated, orally intubated on mechanical ventilation. PEEP remains at +12. CT chest done today shows worsening consolidations. Pleural effusion. 01/09: Remains critically ill with severe bilateral lower lobe consolidated pneumonias. Requiring markedly elevated mean airway pressure still. Patient is nutritionally depleted and not responding well to our aggressive medical treatment. 01/10: Continued requirements for markedly elevated fractional inspiratory oxygen concentration. Continued dense consolidation in both lower lobes PEEP reduced to avoid overexpansion of upper lobes. 01/11: Converted to airway pressure release ventilation because of inability to oxygenate adequately. We will probably have to add Flolan. Lengthy discussion with family about the severity of his respiratory problems and pneumonia. 01/12: Some progress but remains with high A-aO2 gradient. ET tube above clavicles; repositioned. Copious foul secretions. High requirement requirements for analgesia and sedation due to alcohol history. Will continue methadone and start scheduled Librium in an attempt to lower the intravenous requirements. 01/13: Remains sedated, orally intubated on mechanical ventilation. 01/14: Remains sedated, orally intubated on mechanical ventilation. Remains on APRV mode. On inhaled Flolan. 01/15: Remains sedated, intubated on AP RV mode mechanical ventilation. Inhaled Flolan titrated down to 30 ng/kg/min. Placed on rotarest bed yesterday. Starting Lasix to mobilize fluid in view of positive fluid balance. 01/16: Dense consolidation right lower lobe causing severe shunting and hypoxemia. He will likely require pronating to drain the basilar lower lobes. Patient remains critically ill with an unrelenting bilateral pneumonia proving refractory to our best antibiotic and ventilatory interventions. 01/17: Persistent shunting through consolidated right lower lobe is producing profound hypoxemia. Presently requiring roto-rest bed and markedly elevated mean airway pressures on mechanical ventilation. Sputum obtained during alveolar lavage of the right lower lobe yesterday is still pending. Patient remains critically ill and generally edematous. 01/18: Not progressing on Roto-Rest bed. Remains on 65% FiO2, inhaled Flolan, AP RV mode mechanical ventilation. We will attempt to place on prone ventilation after neuromuscular blockade and switching to pressure control inverse ratio mode mechanical ventilation. Also placing Dobbhoff to see if he tolerates tube feeds better and will be placing central line 01/19: Placed on prone ventilation on 01/19 after switching to PC/AC PIP+18, PEEP+ 15, Rate 18, I :E 3.5:1, FiO2 65%. FiO2 requirement down to 40% with proning. Remains on inhaled flolan. On neuromuscular blockade. 01/20: Continues on prone ventilation. Flolan being titrated down. Chest x-ray showed significant improvement in aeration bilaterally. 01/21: Remains on prone ventilation. On sedation and neuromuscular blockade. Flolan off since yesterday. O2 sats dropped on attempting to titrate PEEP below 14. Remains on 45-50% FiO2, rate 18, I:E ratio 1.5 :1 01/22: Sedated, orally intubated on mechanical ventilation. Remains on prone ventilation. PCO2 climbing. Changed to PRVC mode, PEEP +12. Increased rate to 24 and tidal volume to 500 this morning in view of elevated PCO2 on ABG. Chest x-ray is essentially clear bilaterally. Obtaining lower extremity venous Dopplers to evaluate for DVT and a 2D echo. 01/23: Remains sedated, orally intubated on neuromuscular blockade. Stopping from ventilation today. On PRVC mode mechanical ventilation tidal volume 450, rate 18, FiO2 40%, PEEP +10. Decreased I time to 1.2 seconds. Gradually advancing Dobbhoff feeds. Plan on stopping neuromuscular blockade later today. 01/24: Intubated sedated remains on neuromuscular blockade. Worsening oxygenation FiO2 up to 60% PEEP increased to 12. Chest x-ray shows right-sided atelectasis versus airspace disease. Bronchoscopy performed and BAL sent. off prone therapy. Mother updated at the bedside 01/25: Patient remains intubated sedation lightened. Eyes are open withdraws lower extremities localizes with left upper extremity slightly withdraws right. Off Nimbex. FiO2 down to 50% PEEP now 10. Persistent right lower lobe infiltrate/effusion. Check CT chest to better evaluate. Status post bronchoscopy yesterday 01/26: Remains intubated sedated remains off Nimbex. More awake eyes are open spontaneously moving upper extremities though generalized weakness persist. Weaker on the lower extremity. FiO2 requirement has increased overnight now 55 % PEEP at 10. We will proceed with tracheostomy with general surgery Dr. Ivey. 01/27: Status post tracheostomy with acceptable airway pressures and improving oxygen requirements. Continues to look around a little bit better. 01/28: TM temperature max 101.1, leukocytosis worsening. Neurologic function remains the same. Chest x-ray with clear gorman but unable to see behind the liver well. 01/29: Much more alert today. Up in chair breathing comfortably on T-piece. Continuing enteral nutrition. 01/30: Remains alert today, interactive through head nods, smiling occasionally. Seems to recognize family at bedside. Tolerating extending spontaneous breathing trials. We will work toward T-piece. Persistent leukocytosis is worrisome and we will investigate thoroughly. 01/31: Increasingly more alert each day. Now responding to family. Up in chair. Try to get him to T-piece now. Hopefully we can find inpatient rehab placement. Persistent leukocytosis is worrisome but he remains afebrile and he does not look ill. Objective Vital Signs / I&O: Vital Signs 01/30/18 13:00 01/30/18 13:30 01/30/18 14:00 Temperature Pulse Rate 113 H 115 H 109 H Respiratory Rate 18 19 Blood Pressure 137/82 136/85 Pulse Oximetry 91 L 91 L 01/30/18 14:06 01/30/18 14:11 01/30/18 14:30 Temperature Pulse Rate 110 H 109 H 100 H Respiratory Rate 21 19 Blood Pressure 135/82 131/80 Pulse Oximetry 94 L 93 L 93 L 01/30/18 15:00 01/30/18 15:30 01/30/18 16:00 Temperature 97.7 F Pulse Rate 98 H 96 H 102 H Respiratory Rate 21 21 21 Blood Pressure 122/75 124/77 120/77 Pulse Oximetry 93 L 93 L 94 L 01/30/18 16:07 01/30/18 16:30 01/30/18 17:00 Temperature Pulse Rate 101 H 117 H Respiratory Rate 19 22 11 L Blood Pressure 126/80 133/70 Pulse Oximetry 95 96 91 L 01/30/18 17:30 01/30/18 18:00 01/30/18 18:30 Temperature Pulse Rate 113 H 118 H 110 H Respiratory Rate 14 20 21 Blood Pressure 131/74 133/81 135/80 Pulse Oximetry 93 L 93 L 93 L 01/30/18 18:45 01/30/18 19:00 01/30/18 19:30 Temperature 98.0 F Pulse Rate 88 113 H 106 H Respiratory Rate 28 H 14 Blood Pressure 136/82 124/79 Pulse Oximetry 93 L 94 L 01/30/18 20:00 01/30/18 20:30 01/30/18 20:35 Temperature 97.9 F Pulse Rate 102 H 104 H Respiratory Rate 16 20 14 Blood Pressure 127/77 Pulse Oximetry 92 L 92 L 95 01/30/18 21:00 01/30/18 21:30 01/30/18 22:00 Temperature Pulse Rate 104 H 106 H 98 H Respiratory Rate 15 16 13 Blood Pressure 129/79 124/74 Pulse Oximetry 93 L 93 L 92 L 01/30/18 22:30 01/30/18 23:00 01/30/18 23:30 Temperature Pulse Rate 97 H 104 H 105 H Respiratory Rate 21 21 16 Blood Pressure 126/77 Pulse Oximetry 93 L 91 L 90 L 01/31/18 00:00 01/31/18 00:30 01/31/18 01:00 Temperature 98.4 F Pulse Rate 109 H 101 H 102 H Respiratory Rate 15 14 20 Blood Pressure 126/76 138/73 Pulse Oximetry 92 L 94 L 93 L 01/31/18 01:30 01/31/18 02:00 01/31/18 02:30 Temperature Pulse Rate 102 H 100 H 102 H Respiratory Rate 23 26 H 22 Blood Pressure 126/81 Pulse Oximetry 93 L 94 L 93 L 01/31/18 03:00 01/31/18 03:30 01/31/18 03:44 Temperature Pulse Rate 105 H 104 H Respiratory Rate 25 H 23 20 Blood Pressure 124/75 Pulse Oximetry 93 L 94 L 93 L 01/31/18 04:00 01/31/18 04:30 01/31/18 05:00 Temperature 98.7 F Pulse Rate 95 H 91 H 91 H Respiratory Rate 22 18 22 Blood Pressure 127/79 121/72 Pulse Oximetry 90 L 91 L 92 L 01/31/18 05:30 01/31/18 06:00 01/31/18 06:30 Temperature Pulse Rate 97 H 94 H 94 H Respiratory Rate 16 15 16 Blood Pressure 124/78 Pulse Oximetry 92 L 92 L 91 L 01/31/18 07:00 01/31/18 07:21 01/31/18 07:30 Temperature Pulse Rate 89 91 H Respiratory Rate 19 19 13 Blood Pressure 122/74 Pulse Oximetry 92 L 93 L 01/31/18 07:40 01/31/18 08:00 01/31/18 08:29 Temperature 97.7 F Pulse Rate 97 H 95 H Respiratory Rate 15 15 Blood Pressure 128/80 Pulse Oximetry 92 L 92 L 01/31/18 08:30 01/31/18 09:00 01/31/18 09:30 Temperature Pulse Rate 96 H 102 H 96 H Respiratory Rate 15 25 H 21 Blood Pressure 128/80 Pulse Oximetry 92 L 88 L 90 L 01/31/18 10:00 01/31/18 10:30 01/31/18 11:00 Temperature Pulse Rate 101 H 101 H 105 H Respiratory Rate 21 15 19 Blood Pressure 126/81 128/85 Pulse Oximetry 93 L 96 95 01/31/18 11:30 01/31/18 12:00 01/31/18 12:45 Temperature 97.9 F Pulse Rate 105 H 109 H Respiratory Rate 19 23 31 H Blood Pressure 137/88 Pulse Oximetry 97 96 94 L Intake & Output 01/30/18 01/31/18 01/31/18 18:59 06:59 18:59 Intake Total 610 / 610 681 / 681 Output Total 1275 / 1275 1000 / 1000 Balance -665 / -665 -319 / -319 Weight 73.1 kg Intake: IV 250 / 250 fentaNYL 10 mcg/mL Premix Drip 250 / 250 2,500 mcg In 250 ml @ 50 MCG/HR 5 mls/hr IV.SIG TITRATE PRN Rx #:[id number] Tube Feeding 300 / 300 621 / 621 Tube Irrigant 60 / 60 60 / 60 Output: Urine 1000 / 1000 Urine Amount (Catheter) 1275 / 1275 Condom 1275 / 1275 Other: Date of Last Bowel Movement 01/29/18 01/29/18 01/29/18 Result Diagrams: 01/31/18 05:08 01/30/18 10:03 Objective Remarks: GEN: Alert HEENT: Trachea midline, trach site clean and dry, CARDIO: S1-S2 regular, no murmur. Neck: Supple. PULM: Some mobile secretions but generally clear. Comfortable respiratory pattern on CPAP ABD/GI: Soft, non-distended. No guarding, bowel sounds active. EXT/MSK: Trace peripheral edema, warm, adequately perfused. SKIN: No rashes or lesions. Superficial blisters drying nicely. NEURO: Opens eyes and tracks well. Now focusing. Moves 4 limbs spontaneously. Assessment and Plan - Problem List (1) Heroin overdose Code(s): T40.1X1A - Poisoning by heroin, accidental (unintentional), initial encounter Status: Acute (2) Polysubstance abuse Code(s): F19.10 - Other psychoactive substance abuse, uncomplicated Status: Chronic (3) Cocaine abuse Code(s): F14.10 - Cocaine abuse, uncomplicated Status: Acute (4) Elevated ETOH level Code(s): R78.0 - Finding of alcohol in blood Status: Acute (5) Marijuana abuse Code(s): F12.10 - Cannabis abuse, uncomplicated Status: Acute (6) TORREY (acute kidney injury) Code(s): N17.9 - Acute kidney failure, unspecified Status: Acute (7) Severe sepsis Code(s): A41.9 - Sepsis, unspecified organism; R65.20 - Severe sepsis without septic shock Status: Acute (8) Acute respiratory failure with hypoxia Code(s): J96.01 - Acute respiratory failure with hypoxia Status: Acute (9) Aspiration pneumonia Code(s): J69.0 - Pneumonitis due to inhalation of food and vomit Status: Acute (10) Vomiting Code(s): R11.10 - Vomiting, unspecified Status: Acute (11) Hyperglycemia Code(s): R73.9 - Hyperglycemia, unspecified Status: Acute (12) Protein-calorie malnutrition, moderate Code(s): E44.0 - Moderate protein-calorie malnutrition Status: Acute - Assessment and Plan Plan: NEURO: Heroin overdose Polysubstance abuse (marijuana, opiate, cocaine) Critical illness neuromyopathy Propofol/versed/fentanyl for sedation. Discontinued Nimbex 01/24/2018 Thiamine/multivitamin supplementation CT head negative. Tolerance to narcotic analgesia implies chronic narcotic use On methadone and weaned fentanyl. PT/OT daily Librium has been discontinued and patient is more alert RESP: Acute hypoxemic respiratory failure Acute aspiration pneumonia New right lower lobe infiltrate Intubated in ED 01/05 due to hypoxia. inhaled Flolan discontinued on 01/21. Nimbex discontinued 01/24/2018 Initially on APRV mode which was switched to pressure control inverse ratio mechanical ventilation with Proning on 01/18. Changed to PRVC on 01/21 a.m. in view of elevated PCO2 to ensure adequate tidal volumes. Currently on conventional ventilation PRVC AC PEEP +10, rate 18, FiO2 55%. Bronchoscopy/BAL for right lower lobe new infiltrate. CT chest -bibasilar consolidation DuoNeb every 6 hours. Albuterol every 2 hours as needed. Previous CT chest with dense bilateral basilar consolidations and small right pleural effusion Considerable sputum withdrawn from right lower lobe on 01/16 during bronchoscopy , culture results normal alistair. Tracheostomy 01/26. CV: Telemetry and BP monitoring in ICU Being diuresed to mobilize fluid Lower extremity venous Dopplers negative for DVTs. F/U 2D echo to assess RV/LV function and for shunting. Echo Normal left ventricular size. Reduced EF 45-50%. GI: Continue tube feedings via Dobbhoff, advance to goal as tolerated. Having high residuals. Holding tube feeds for tracheostomy On Reglan IV. Zofran prn. Continue tube feeds on the clock FEN/RENAL: TORREY - suspect pre-renal secondary to overdose and sepsis, improved CPK is normal Urine output adequate Discontinue intravenous fluid. Received Diamox on 01/20 and 01/21 for metabolic alkalosis secondary to diuresis with Lasix. ID: Severe Sepsis secondary to aspiration pneumonia Right lower lobe infiltrate MRSA swab negative Blood cultures from 01/05 growing staph epidermidis in both bottles, repeat cultures sent 01/06 no growth at 1 day Consulted ID for antibiotic management in view of worsening respiratory status/ sepsis. On Zosyn IV. Vancomycin discontinued. Restarted vancomycin 01/24/2018 for new right lower lobe infiltrate-if bronc cultures negative will discontinue- negative to date Cultures negative to date Lung gorman have cleared nicely. Right hemidiaphragm is elevated due to intestine above the liver. HEME: No acute hematologic issues aside from leukocytosis. Coags are normal. Hemoglobin has remained stable. ENDO: Acute hyperglycemia Monitor bedside glucose every 6 hours and administer low-dose insulin sliding scale as indicated. Poor diabetic control has been an intermittent problem PROPH: -PPI -SCDs/ Lovenox ACCESS: Peripheral lines OVERALL: This patient arrived to us critically ill requiring high levels of ventilator support for aspiration pneumonia and heroin drug overdose. His initial response to aggressive medical therapy has been poor, undoubtedly related to chronic debilitation and poor baseline nutritional status. His long- term prognosis was guarded, largely due to concerns about his nutritional and immune status. He initially failed bilevel ventilation but did more poorly on conventional. Improved on prone ventilation, now on conventional PRVC/AC. We are finally making some progress in clearing his pneumonia and weaning from the ventilator. Another good day today for the patient.
[2018-02-01] MEDS: Methadone 10 MG Tablet PO SCH ×2 (03:13→15:53)
[2018-02-01] MEDS: Oral Hygiene Kit OROPHARYNG SCH ×4 (03:38→16:41)
[2018-02-01 06:55] LABS: Baso # (Auto) 0.2 th/mm3 (0.0-0.2); Eos # (Auto) 0.8 th/mm3 (0.0-0.4); Eos % (Auto) 3.4 % (0.0-4.0); Hematocrit 38.6 % (39.0-51.0); Lymph % (Auto) 8.1 % (9.0-44.0); Mean Corpuscular HGB Conc 33.7 % (32.0-36.0); Mean Corpuscular Hemoglobin 31.5 pg (27.0-34.0); Mean Corpuscular Volume 93.2 fL (80.0-100.0); Mean Platelet Volume 9.4 fL (7.0-11.0); Mono # (Auto) 2.9 th/mm3 (0.0-0.9); Mono % (Auto) 11.5 % (0.0-8.0); Neut # (Auto) 18.9 th/mm3 (1.8-7.7); Platelet Count 584 th/mm3 (150-450); Red Blood Count 4.14 mil/mm3 (4.50-5.90); Red Cell Distribution Width 13.5 % (11.6-17.2); White Blood Count 24.9 th/mm3 (4.0-11.0)
[2018-02-01 07:16] LABS: Anion Gap 6 meq/L (5-15); Blood Urea Nitrogen 24 mg/dL (7-18); Calcium 9.7 mg/dL (8.5-10.1); Carbon Dioxide 32.8 meq/L (21.0-32.0); Chloride 99 meq/L (98-107); Glomerular Filtration Rate Greater Than 89 mL/min (>89); Glucose,Random 124 mg/dL (74-106); Potassium 3.7 meq/L (3.5-5.1); Sodium 138 meq/L (136-145)
[2018-02-01] MEDS: Famotidine PF Inj 20 MG/2 ML Vial IV.PUSH SCH ×2 (08:25→21:06)
[2018-02-01] MEDS: Chlorhexidine 0.12% Oral Kit 15 ML UDC OROPHARYNG SCH ×2 (08:26→21:05)
[2018-02-01] MEDS: Senna/Docusate Sodium 8.6/50 MG Tablet PO SCH ×2 (08:26→21:06)
[2018-02-01] MEDS: Beneprotein Powder Packet G-TUBE SCH ×3 (08:26→18:56)
[2018-02-01 08:33] LABS: Eosinophils 8 % (0-4); Lymphocytes 10 % (9-44); Monocytes 16 % (0-8); Platelet Morphology Normal (Normal)
--- NOTE | 2018-02-01 12:58 | P.PNCC ---
Subjective Subjective Remarks/Hospital Course: 37-year-old male who is brought to [facility] emergency department after friends contacted [facility] due to decreased mental status with suspected heroin overdose. He had used heroin earlier in the evening. [facility] reportedly found him laying in emesis with a thready pulse. They gave him sequential doses of Narcan to a total of 2.4 mg IV at which point he became more awake and alert. He then had multiple episodes of vomiting in route. NG tube was placed by the paramedics and they aspirated gastric contents and then removed s NG prior to arrival. His room air sats were reportedly 84% and he was placed on NR. Patient told Dr. Lovett that this was his first time using heroin and that he injected it. CXR demonstrated RLL opacity. He was started on Unasyn for aspiration pneumonia and given nebs. He eventually was intubated due to hypoxia with sats in high 80s despite nonrebreather. [employer] consulted for admission. 01/06: Remains sedated and intubated, requires PEEP 12 and FiO2 70%, will try to wean these today if tolerated. 01/07: Agitated overnight and this morning, 2 episodes where the patient bit down on ETT, desaturated, and became unstable. Not tolerating pressure support trials. 01/08: Remains sedated, orally intubated on mechanical ventilation. PEEP remains at +12. CT chest done today shows worsening consolidations. Pleural effusion. 01/09: Remains critically ill with severe bilateral lower lobe consolidated pneumonias. Requiring markedly elevated mean airway pressure still. Patient is nutritionally depleted and not responding well to our aggressive medical treatment. 01/10: Continued requirements for markedly elevated fractional inspiratory oxygen concentration. Continued dense consolidation in both lower lobes PEEP reduced to avoid overexpansion of upper lobes. 01/11: Converted to airway pressure release ventilation because of inability to oxygenate adequately. We will probably have to add Flolan. Lengthy discussion with family about the severity of his respiratory problems and pneumonia. 01/12: Some progress but remains with high A-aO2 gradient. ET tube above clavicles; repositioned. Copious foul secretions. High requirement requirements for analgesia and sedation due to alcohol history. Will continue methadone and start scheduled Librium in an attempt to lower the intravenous requirements. 01/13: Remains sedated, orally intubated on mechanical ventilation. 01/14: Remains sedated, orally intubated on mechanical ventilation. Remains on APRV mode. On inhaled Flolan. 01/15: Remains sedated, intubated on AP RV mode mechanical ventilation. Inhaled Flolan titrated down to 30 ng/kg/min. Placed on rotarest bed yesterday. Starting Lasix to mobilize fluid in view of positive fluid balance. 01/16: Dense consolidation right lower lobe causing severe shunting and hypoxemia. He will likely require pronating to drain the basilar lower lobes. Patient remains critically ill with an unrelenting bilateral pneumonia proving refractory to our best antibiotic and ventilatory interventions. 01/17: Persistent shunting through consolidated right lower lobe is producing profound hypoxemia. Presently requiring roto-rest bed and markedly elevated mean airway pressures on mechanical ventilation. Sputum obtained during alveolar lavage of the right lower lobe yesterday is still pending. Patient remains critically ill and generally edematous. 01/18: Not progressing on Roto-Rest bed. Remains on 65% FiO2, inhaled Flolan, AP RV mode mechanical ventilation. We will attempt to place on prone ventilation after neuromuscular blockade and switching to pressure control inverse ratio mode mechanical ventilation. Also placing Dobbhoff to see if he tolerates tube feeds better and will be placing central line 01/19: Placed on prone ventilation on 01/19 after switching to PC/AC PIP+18, PEEP+ 15, Rate 18, I :E 3.5:1, FiO2 65%. FiO2 requirement down to 40% with proning. Remains on inhaled flolan. On neuromuscular blockade. 01/20: Continues on prone ventilation. Flolan being titrated down. Chest x-ray showed significant improvement in aeration bilaterally. 01/21: Remains on prone ventilation. On sedation and neuromuscular blockade. Flolan off since yesterday. O2 sats dropped on attempting to titrate PEEP below 14. Remains on 45-50% FiO2, rate 18, I:E ratio 1.5 :1 01/22: Sedated, orally intubated on mechanical ventilation. Remains on prone ventilation. PCO2 climbing. Changed to PRVC mode, PEEP +12. Increased rate to 24 and tidal volume to 500 this morning in view of elevated PCO2 on ABG. Chest x-ray is essentially clear bilaterally. Obtaining lower extremity venous Dopplers to evaluate for DVT and a 2D echo. 01/23: Remains sedated, orally intubated on neuromuscular blockade. Stopping from ventilation today. On PRVC mode mechanical ventilation tidal volume 450, rate 18, FiO2 40%, PEEP +10. Decreased I time to 1.2 seconds. Gradually advancing Dobbhoff feeds. Plan on stopping neuromuscular blockade later today. 01/24: Intubated sedated remains on neuromuscular blockade. Worsening oxygenation FiO2 up to 60% PEEP increased to 12. Chest x-ray shows right-sided atelectasis versus airspace disease. Bronchoscopy performed and BAL sent. off prone therapy. Mother updated at the bedside 01/25: Patient remains intubated sedation lightened. Eyes are open withdraws lower extremities localizes with left upper extremity slightly withdraws right. Off Nimbex. FiO2 down to 50% PEEP now 10. Persistent right lower lobe infiltrate/effusion. Check CT chest to better evaluate. Status post bronchoscopy yesterday 01/26: Remains intubated sedated remains off Nimbex. More awake eyes are open spontaneously moving upper extremities though generalized weakness persist. Weaker on the lower extremity. FiO2 requirement has increased overnight now 55 % PEEP at 10. We will proceed with tracheostomy with general surgery Dr. Ivey. 01/27: Status post tracheostomy with acceptable airway pressures and improving oxygen requirements. Continues to look around a little bit better. 01/28: TM temperature max 101.1, leukocytosis worsening. Neurologic function remains the same. Chest x-ray with clear gorman but unable to see behind the liver well. 01/29: Much more alert today. Up in chair breathing comfortably on T-piece. Continuing enteral nutrition. 01/30: Remains alert today, interactive through head nods, smiling occasionally. Seems to recognize family at bedside. Tolerating extending spontaneous breathing trials. We will work toward T-piece. Persistent leukocytosis is worrisome and we will investigate thoroughly. 01/31: Increasingly more alert each day. Now responding to family. Up in chair. Try to get him to T-piece now. Hopefully we can find inpatient rehab placement. Persistent leukocytosis is worrisome but he remains afebrile and he does not look ill. 02/01: Awake and alert. On CPAP trials. Wants to drink water. Tolerating PEG feeds. Objective Vital Signs / I&O: Vital Signs 01/31/18 13:00 01/31/18 13:30 01/31/18 13:51 Temperature Pulse Rate 106 H 106 H 102 H Respiratory Rate 23 21 Blood Pressure 130/83 Pulse Oximetry 92 L 93 L 01/31/18 14:00 01/31/18 14:30 01/31/18 15:00 Temperature Pulse Rate 104 H 103 H 99 H Respiratory Rate 20 18 20 Blood Pressure 131/83 132/84 Pulse Oximetry 94 L 96 95 01/31/18 15:30 01/31/18 15:50 01/31/18 15:51 Temperature Pulse Rate 103 H 100 H Respiratory Rate 20 19 Blood Pressure Pulse Oximetry 95 01/31/18 16:00 01/31/18 16:30 01/31/18 16:44 Temperature 97.9 F Pulse Rate 103 H 95 H Respiratory Rate 21 18 24 Blood Pressure 137/95 H Pulse Oximetry 93 L 94 L 95 01/31/18 17:00 01/31/18 17:30 01/31/18 17:56 Temperature Pulse Rate 96 H 94 H 98 H Respiratory Rate 18 16 Blood Pressure 120/72 Pulse Oximetry 92 L 94 L 01/31/18 18:00 01/31/18 18:30 01/31/18 19:00 Temperature Pulse Rate 96 H 96 H 107 H Respiratory Rate 20 18 113 H Blood Pressure 114/67 133/79 Pulse Oximetry 93 L 95 94 L 01/31/18 19:30 01/31/18 20:00 01/31/18 20:30 Temperature 98.0 F Pulse Rate 99 H 105 H 96 H Respiratory Rate 96 H 129 H 126 H Blood Pressure 130/76 Pulse Oximetry 93 L 94 L 93 L 01/31/18 20:54 01/31/18 21:00 01/31/18 21:30 Temperature Pulse Rate 103 H 95 H Respiratory Rate 20 105 H 125 H Blood Pressure 122/75 Pulse Oximetry 93 L 96 93 L 01/31/18 22:00 01/31/18 22:30 01/31/18 23:00 Temperature Pulse Rate 96 H 98 H 112 H Respiratory Rate 135 H 111 H 118 H Blood Pressure 114/70 133/87 Pulse Oximetry 92 L 93 L 92 L 01/31/18 23:30 01/31/18 23:39 02/01/18 00:00 Temperature Pulse Rate 109 H 112 H Respiratory Rate 119 H 24 114 H Blood Pressure 134/81 Pulse Oximetry 94 L 94 L 92 L 02/01/18 00:30 02/01/18 01:00 02/01/18 01:30 Temperature Pulse Rate 106 H 106 H 103 H Respiratory Rate 76 H 92 H 122 H Blood Pressure 135/79 Pulse Oximetry 92 L 94 L 94 L 02/01/18 02:00 02/01/18 02:30 02/01/18 03:00 Temperature Pulse Rate 101 H 97 H 100 H Respiratory Rate 99 H 125 H 131 H Blood Pressure 128/78 124/80 Pulse Oximetry 95 97 94 L 02/01/18 03:30 02/01/18 03:51 02/01/18 04:00 Temperature Pulse Rate 96 H 98 H Respiratory Rate 131 H 18 87 H Blood Pressure 134/87 Pulse Oximetry 95 95 94 L 02/01/18 04:30 02/01/18 05:00 02/01/18 05:30 Temperature Pulse Rate 96 H 91 H 92 H Respiratory Rate 91 H 88 H 80 H Blood Pressure 119/70 Pulse Oximetry 95 96 96 02/01/18 06:00 02/01/18 07:00 02/01/18 08:00 Temperature 98.1 F Pulse Rate 90 94 H 95 H Respiratory Rate 69 H 65 H 54 H Blood Pressure 122/76 121/76 132/85 Pulse Oximetry 95 94 L 97 02/01/18 08:30 02/01/18 09:00 02/01/18 09:50 Temperature Pulse Rate 96 H 95 H Respiratory Rate 20 31 H 20 Blood Pressure 122/83 Pulse Oximetry 94 L 96 97 02/01/18 10:00 02/01/18 11:00 02/01/18 11:38 Temperature Pulse Rate 96 H Respiratory Rate 28 H Blood Pressure 124/93 H 128/84 Pulse Oximetry 95 100 02/01/18 12:00 Temperature 98.6 F Pulse Rate 110 H Respiratory Rate 12 Blood Pressure 117/82 Pulse Oximetry 96 Intake & Output 01/31/18 02/01/18 02/01/18 18:59 06:59 18:59 Intake Total 769 / 769 2390 / 2390 Output Total 1025 / 1025 3065 / 3065 Balance -256 / -256 -675 / -675 Weight 75.3 kg Intake: IV 100 / 100 Diprivan 1000 mg/100 ml Inj 1, 100 / 100 000 mg In 100 ml @ 5 MCG/KG/MIN 2.585 mls/hr IV.CONT TITRATE PRN Rx#:[id number] Oral 669 / 669 669 / 669 Tube Feeding 1331 / 1331 Tube Irrigant 120 / 120 Water Bolus Amount 100 / 100 Anesthesia Amount 50 / 50 Other 120 / 120 Output: Urine 1000 / 1000 Stool 40 / 40 Urine Amount (Catheter) 1025 / 1025 1925 / 1925 Condom 1025 / 1025 1925 / 1925 Gastric Drainage 100 / 100 Gastrostomy Tube (PEG) 100 / 100 Other: # Incontinent Voids 1 Date of Last Bowel Movement 01/31/18 01/31/18 01/31/18 # Bowel Movements 1 1 # Incontinent Bowel Movements 2 # Emeses 1 Result Diagrams: 02/01/18 05:23 02/01/18 05:23 Objective Remarks: GEN: Alert HEENT: Trachea midline, trach site clean and dry, CARDIO: S1-S2 regular, no murmur. Neck: Supple. PULM: Some mobile secretions but generally clear. Comfortable respiratory pattern on CPAP ABD/GI: Soft, non-distended. No guarding, bowel sounds active. EXT/MSK: Trace peripheral edema, warm, adequately perfused. SKIN: No rashes or lesions. Superficial blisters drying nicely. NEURO: Opens eyes and tracks well. Now focusing. Moves 4 limbs spontaneously. Assessment and Plan - Problem List (1) Heroin overdose Code(s): T40.1X1A - Poisoning by heroin, accidental (unintentional), initial encounter Status: Acute (2) Polysubstance abuse Code(s): F19.10 - Other psychoactive substance abuse, uncomplicated Status: Chronic (3) Cocaine abuse Code(s): F14.10 - Cocaine abuse, uncomplicated Status: Acute (4) Elevated ETOH level Code(s): R78.0 - Finding of alcohol in blood Status: Acute (5) Marijuana abuse Code(s): F12.10 - Cannabis abuse, uncomplicated Status: Acute (6) TORREY (acute kidney injury) Code(s): N17.9 - Acute kidney failure, unspecified Status: Acute (7) Severe sepsis Code(s): A41.9 - Sepsis, unspecified organism; R65.20 - Severe sepsis without septic shock Status: Acute (8) Acute respiratory failure with hypoxia Code(s): J96.01 - Acute respiratory failure with hypoxia Status: Acute (9) Aspiration pneumonia Code(s): J69.0 - Pneumonitis due to inhalation of food and vomit Status: Acute (10) Vomiting Code(s): R11.10 - Vomiting, unspecified Status: Acute (11) Hyperglycemia Code(s): R73.9 - Hyperglycemia, unspecified Status: Acute (12) Protein-calorie malnutrition, moderate Code(s): E44.0 - Moderate protein-calorie malnutrition Status: Acute - Assessment and Plan Plan: NEURO: Heroin overdose Polysubstance abuse (marijuana, opiate, cocaine) Critical illness neuromyopathy Off Propofol/versed/fentanyl gtt. Discontinued Nimbex 01/24/2018 Thiamine/multivitamin supplementation CT head negative. Tolerance to narcotic analgesia implies chronic narcotic use On methadone and weaned fentanyl. PT/OT daily Librium has been discontinued and patient is more alert RESP: Acute hypoxemic respiratory failure Acute aspiration pneumonia New right lower lobe infiltrate Intubated in ED 01/05 due to hypoxia. inhaled Flolan discontinued on 01/21. Nimbex discontinued 01/24/2018 Initially on APRV mode which was switched to pressure control inverse ratio mechanical ventilation with Proning on 01/18. Changed to PRVC on 01/21 a.m. in view of elevated PCO2 to ensure adequate tidal volumes. Currently on conventional ventilation PRVC AC PEEP +10, rate 18, FiO2 55%. Bronchoscopy/BAL for right lower lobe new infiltrate. CT chest -bibasilar consolidation DuoNeb every 6 hours. Albuterol every 2 hours as needed. Previous CT chest with dense bilateral basilar consolidations and small right pleural effusion Considerable sputum withdrawn from right lower lobe on 01/16 during bronchoscopy , culture results normal alistair. Tracheostomy 01/26. CV: Telemetry and BP monitoring in ICU Being diuresed to mobilize fluid Lower extremity venous Dopplers negative for DVTs. F/U 2D echo to assess RV/LV function and for shunting. Echo Normal left ventricular size. Reduced EF 45-50%. GI: Continue tube feedings via PEG, advance to goal as tolerated. On Reglan IV. Zofran prn. Continue tube feeds on the clock FEN/RENAL: TORREY - suspect pre-renal secondary to overdose and sepsis, improved CPK is normal Urine output adequate Discontinue intravenous fluid. Received Diamox on 01/20 and 01/21 for metabolic alkalosis secondary to diuresis with Lasix. ID: Severe Sepsis secondary to aspiration pneumonia Right lower lobe infiltrate MRSA swab negative Blood cultures from 01/05 growing staph epidermidis in both bottles, repeat cultures sent 01/06 no growth at 1 day Consulted ID for antibiotic management in view of worsening respiratory status/ sepsis. On Zosyn IV. Vancomycin discontinued. Restarted vancomycin 01/24/2018 for new right lower lobe infiltrate-if bronc cultures negative will discontinue- negative to date Cultures negative to date Lung gorman have cleared nicely. Right hemidiaphragm is elevated due to intestine above the liver. HEME: No acute hematologic issues aside from leukocytosis. Coags are normal. Hemoglobin has remained stable. ENDO: Acute hyperglycemia Monitor bedside glucose every 6 hours and administer low-dose insulin sliding scale as indicated. Poor diabetic control has been an intermittent problem PROPH: -PPI -SCDs/ Lovenox ACCESS: Peripheral lines OVERALL: This patient arrived to us critically ill requiring high levels of ventilator support for aspiration pneumonia and heroin drug overdose. His initial response to aggressive medical therapy has been poor, undoubtedly related to chronic debilitation and poor baseline nutritional status. His long- term prognosis was guarded, largely due to concerns about his nutritional and immune status. He initially failed bilevel ventilation but did more poorly on conventional. Improved on prone ventilation, now on conventional PRVC/AC. We are finally making some progress in clearing his pneumonia and weaning from the ventilator. Another good day today for the patient.
--- NOTE | 2018-02-01 14:07 | P.PNID ---
Subjective Remarks: Asked to see patient again because his white blood cell count is increasing. Notes reviewed. Patient is on trach collar and he has copious green secretions. He is awake and alert. Not verbalizing however. No fever. No diarrhea. He has a condom catheter. 37-year-old white male who was brought in to the emergency department when he was found down by a friend. The patient was noted to have overdosed on drugs. He was noted to have used IV heroin. In the emergency department, his temperature was normal. Chest x-ray was performed and showed an elevation of the right hemidiaphragm and right lower lobe consolidation versus atelectasis and small to moderate-sized right pleural effusion. Blood cultures on admission had Staph coagulase negative. Past Medical History: Intravenous drug abuse. Allergies/Adverse Reactions: Allergies No Allergy Information Available Allergy (Verified 01/20/18 01:00) UTO Objective Vital Signs 01/31/18 14:30 01/31/18 15:00 01/31/18 15:30 Temperature Pulse Rate 103 H 99 H 103 H Respiratory Rate 18 20 20 Blood Pressure 132/84 Pulse Oximetry 96 95 95 01/31/18 15:50 01/31/18 15:51 01/31/18 16:00 Temperature 97.9 F Pulse Rate 100 H 103 H Respiratory Rate 19 21 Blood Pressure 137/95 H Pulse Oximetry 93 L 01/31/18 16:30 01/31/18 16:44 01/31/18 17:00 Temperature Pulse Rate 95 H 96 H Respiratory Rate 18 24 18 Blood Pressure 120/72 Pulse Oximetry 94 L 95 92 L 01/31/18 17:30 01/31/18 17:56 01/31/18 18:00 Temperature Pulse Rate 94 H 98 H 96 H Respiratory Rate 16 20 Blood Pressure 114/67 Pulse Oximetry 94 L 93 L 01/31/18 18:30 01/31/18 19:00 01/31/18 19:30 Temperature Pulse Rate 96 H 107 H 99 H Respiratory Rate 18 113 H 96 H Blood Pressure 133/79 Pulse Oximetry 95 94 L 93 L 01/31/18 20:00 01/31/18 20:30 01/31/18 20:54 Temperature 98.0 F Pulse Rate 105 H 96 H Respiratory Rate 129 H 126 H 20 Blood Pressure 130/76 Pulse Oximetry 94 L 93 L 93 L 01/31/18 21:00 01/31/18 21:30 01/31/18 22:00 Temperature Pulse Rate 103 H 95 H 96 H Respiratory Rate 105 H 125 H 135 H Blood Pressure 122/75 114/70 Pulse Oximetry 96 93 L 92 L 01/31/18 22:30 01/31/18 23:00 01/31/18 23:30 Temperature Pulse Rate 98 H 112 H 109 H Respiratory Rate 111 H 118 H 119 H Blood Pressure 133/87 Pulse Oximetry 93 L 92 L 94 L 01/31/18 23:39 02/01/18 00:00 02/01/18 00:30 Temperature Pulse Rate 112 H 106 H Respiratory Rate 24 114 H 76 H Blood Pressure 134/81 Pulse Oximetry 94 L 92 L 92 L 02/01/18 01:00 02/01/18 01:30 02/01/18 02:00 Temperature Pulse Rate 106 H 103 H 101 H Respiratory Rate 92 H 122 H 99 H Blood Pressure 135/79 128/78 Pulse Oximetry 94 L 94 L 95 02/01/18 02:30 02/01/18 03:00 02/01/18 03:30 Temperature Pulse Rate 97 H 100 H 96 H Respiratory Rate 125 H 131 H 131 H Blood Pressure 124/80 Pulse Oximetry 97 94 L 95 02/01/18 03:51 02/01/18 04:00 02/01/18 04:30 Temperature Pulse Rate 98 H 96 H Respiratory Rate 18 87 H 91 H Blood Pressure 134/87 Pulse Oximetry 95 94 L 95 02/01/18 05:00 02/01/18 05:30 02/01/18 06:00 Temperature Pulse Rate 91 H 92 H 90 Respiratory Rate 88 H 80 H 69 H Blood Pressure 119/70 122/76 Pulse Oximetry 96 96 95 02/01/18 07:00 02/01/18 08:00 02/01/18 08:30 Temperature 98.1 F Pulse Rate 94 H 95 H 96 H Respiratory Rate 65 H 54 H 20 Blood Pressure 121/76 132/85 Pulse Oximetry 94 L 97 94 L 02/01/18 09:00 02/01/18 09:50 02/01/18 10:00 Temperature Pulse Rate 95 H 96 H Respiratory Rate 31 H 20 28 H Blood Pressure 122/83 124/93 H Pulse Oximetry 96 97 95 02/01/18 11:00 02/01/18 11:38 02/01/18 12:00 Temperature 98.6 F Pulse Rate 110 H Respiratory Rate 12 Blood Pressure 128/84 117/82 Pulse Oximetry 100 96 Intake & Output 01/31/18 02/01/18 02/01/18 18:59 06:59 18:59 Intake Total 769 / 769 2390 / 2390 Output Total 1025 / 1025 3065 / 3065 Balance -256 / -256 -675 / -675 Weight 75.3 kg Intake: IV 100 / 100 Diprivan 1000 mg/100 ml Inj 1, 100 / 100 000 mg In 100 ml @ 5 MCG/KG/MIN 2.585 mls/hr IV.CONT TITRATE PRN Rx#:[id number] Oral 669 / 669 669 / 669 Tube Feeding 1331 / 1331 Tube Irrigant 120 / 120 Water Bolus Amount 100 / 100 Anesthesia Amount 50 / 50 Other 120 / 120 Output: Urine 1000 / 1000 Stool 40 / 40 Urine Amount (Catheter) 1025 / 1025 1925 / 1925 Condom 1025 / 1025 1925 / 1925 Gastric Drainage 100 / 100 Gastrostomy Tube (PEG) 100 / 100 Other: # Incontinent Voids 1 Date of Last Bowel Movement 01/31/18 01/31/18 01/31/18 # Bowel Movements 1 1 # Incontinent Bowel Movements 2 # Emeses 1 Lab - Hematology Results 01/31/18 02/01/18 05:08 05:23 WBC 23.1 H 24.9 H RBC 4.08 L 4.14 L Hgb 12.9 L 13.0 Hct 37.0 L 38.6 L MCV 90.9 93.2 MCH 31.7 31.5 MCHC 34.9 33.7 RDW 13.3 13.5 Plt Count 568 H 584 H MPV 9.1 9.4 Prelim Diff (Auto) Slide review pending Slide review pending Neut % (Auto) 74.1 H 76.0 H Lymph % (Auto) 9.5 8.1 L [place] % (Auto) 12.1 H 11.5 H Eos % (Auto) 3.2 3.4 Baso % (Auto) 1.1 1.0 Neut # (Auto) 17.1 H 18.9 H Lymph # (Auto) 2.2 2.0 [place] # (Auto) 2.8 H 2.9 H Eos # (Auto) 0.7 H 0.8 H Baso # (Auto) 0.2 0.2 WBC Differential Manual diff final Manual diff final Seg Neuts % (Manual) 70 64 Band Neuts % (Manual) 1 2 Lymphocytes % (Manual) 11 10 Monocytes % (Manual) 13 H 16 H Eosinophils % (Manual) 4 8 H Metamyelocytes % (Man) 1 Abs Neuts (Manual) 16.6 H 16.4 H Differential Comment . . Platelet Estimate High H High H Platelet Morphology Normal Normal RBC Morphology Normal Lab - Chemistry Results 02/01/18 05:23 Sodium 138 Potassium 3.7 Chloride 99 Carbon Dioxide 32.8 H Anion Gap 6 BUN 24 H Creatinine 0.76 Estimated GFR Greater than 89 Random Glucose 124 H Calcium 9.7 Imaging: ITS Impressions Head CT 01/05/18 05:01 CONCLUSION: 1. No acute intracranial findings. 2. Air-fluid levels in the right maxillary and sphenoid sinuses suggesting possible acute sinusitis versus air-fluid levels related to intubation.. . Abdomen X-Ray 01/20/18 05:00 CONCLUSION: Feeding tube distal tip is either in the first portion of the duodenum or pylorus region of the stomach. Venous Doppler Study 01/22/18 00:00 CONCLUSION: No venous thrombosis is identified within either upper extremity. Chest CT 01/25/18 00:00 CONCLUSION: 1. Small bilateral pleural effusions overall improved from January 08. 2. Improving bilateral airspace consolidation in the lungs. 3. Endotracheal tube, nasogastric tube and feeding tube and right central line in good position. Chest X-Ray 01/27/18 06:00 CONCLUSION: 1. Tracheostomy tube now in place. 2. Increased confluent opacity at the lung bases indicating atelectasis versus consolidation. 3. Right hemidiaphragm elevation again seen. Physical Exam: GENERAL: Patient in no acute distress. HEENT: Pupils reactive. Extraocular movements grossly intact. Oropharyngeal mucosa is slightly dry. LUNGS: Bilateral rhonchi. HEART: Regular S1, S2, without murmurs, rubs or gallops. ABDOMEN: soft, not tender, positive bowel sounds. EXTREMITIES: No clubbing or cyanosis or edema. SKIN: No diffuse rash. NEUROLOGIC: No gross focal finding PSYCHIATRIC: Calm Assessment and Plan - Plan IMPRESSION: 1. Pneumonia. 2. Bacteremia due to Staphylococcus coag negative. Repeat blood cultures have no growth. This possibly could be contamination. 3. Acute respiratory failure. 4. Intravenous drug use. 5. Probable aspiration. Chest x-ray shows improved aeration. ? R UE DVT Worsening leukocytosis. Possibly due to pulmonary infection. RECOMMENDATIONS: Monitor temperature. Send sputum for culture. Monitor white blood cell count. Currently patient appears stable. Will await sputum culture before giving antibiotics.
[2018-02-02] MEDS: Oral Hygiene Kit OROPHARYNG SCH ×4 (01:08→19:28)
[2018-02-02] MEDS: Methadone 10 MG Tablet PO SCH ×2 (02:18→19:27)
[2018-02-02 06:31] LABS: Baso # (Auto) 0.2 th/mm3 (0.0-0.2); Baso % (Auto) 1.2 % (0.0-2.0); Eos # (Auto) 1.1 th/mm3 (0.0-0.4); Eos % (Auto) 5.7 % (0.0-4.0); Hematocrit 38.5 % (39.0-51.0); Hemoglobin 13.5 gm/dL (13.0-17.0); Lymph # (Auto) 2.3 th/mm3 (1.0-4.8); Lymph % (Auto) 12.1 % (9.0-44.0); Mean Corpuscular Hemoglobin 32.2 pg (27.0-34.0); Mean Platelet Volume 9.4 fL (7.0-11.0); Mono # (Auto) 2.4 th/mm3 (0.0-0.9); Mono % (Auto) 12.4 % (0.0-8.0); Neut % (Auto) 68.6 % (16.0-70.0); Platelet Count 479 th/mm3 (150-450); Red Blood Count 4.19 mil/mm3 (4.50-5.90); Red Cell Distribution Width 13.6 % (11.6-17.2)
[2018-02-02] MEDS: Famotidine PF Inj 20 MG/2 ML Vial IV.PUSH SCH ×2 (09:26→20:15)
[2018-02-02] MEDS: Chlorhexidine 0.12% Oral Kit 15 ML UDC OROPHARYNG SCH ×2 (09:26→20:17)
[2018-02-02] MEDS: Beneprotein Powder Packet G-TUBE SCH ×3 (09:26→19:28)
--- NOTE | 2018-02-02 12:09 | P.PNID ---
Subjective Remarks: Asked to see patient again because his white blood cell count is increasing. Patient is on trach collar. He is awake and alert. Afebrile. WBC still elevated. Sputum culture pending. 37-year-old white male who was brought in to the emergency department when he was found down by a friend. The patient was noted to have overdosed on drugs. He was noted to have used IV heroin. In the emergency department, his temperature was normal. Chest x-ray was performed and showed an elevation of the right hemidiaphragm and right lower lobe consolidation versus atelectasis and small to moderate-sized right pleural effusion. Blood cultures on admission had Staph coagulase negative. Past Medical History: Intravenous drug abuse. Allergies/Adverse Reactions: Allergies No Allergy Information Available Allergy (Verified 01/20/18 01:00) UTO Objective Vital Signs 02/01/18 13:00 02/01/18 13:30 02/01/18 14:00 Temperature Pulse Rate 98 H 96 H 91 H Respiratory Rate 18 18 Blood Pressure 130/85 127/80 Pulse Oximetry 98 97 96 02/01/18 15:00 02/01/18 16:00 02/01/18 18:00 Temperature 98.4 F Pulse Rate 95 H 83 94 H Respiratory Rate 18 21 31 H Blood Pressure 129/88 118/72 128/82 Pulse Oximetry 97 95 96 02/01/18 18:30 02/01/18 19:00 02/01/18 19:30 Temperature 98.4 F Pulse Rate 93 H 93 H 84 Respiratory Rate 37 H 22 13 Blood Pressure 122/75 Pulse Oximetry 97 95 94 L 02/01/18 20:00 02/01/18 20:30 02/01/18 20:47 Temperature 98.6 F Pulse Rate 84 86 Respiratory Rate 15 19 Blood Pressure 113/67 Pulse Oximetry 94 L 93 L 96 02/01/18 21:00 02/01/18 22:00 02/01/18 23:00 Temperature 98.6 F Pulse Rate 92 H 89 90 Respiratory Rate 20 17 17 Blood Pressure 124/78 117/69 109/69 Pulse Oximetry 94 L 94 L 93 L 02/01/18 23:30 02/02/18 00:00 02/02/18 00:30 Temperature 98.4 F Pulse Rate 91 H 88 90 Respiratory Rate 22 19 19 Blood Pressure 112/66 Pulse Oximetry 91 L 92 L 90 L 12/18/18 01:00 02/02/18 01:30 02/02/18 02:00 Temperature Pulse Rate 99 H 98 H 92 H Respiratory Rate 32 H 23 23 Blood Pressure 121/76 122/70 Pulse Oximetry 92 L 94 L 95 02/02/18 02:30 02/02/18 03:00 02/02/18 03:30 Temperature Pulse Rate 94 H 96 H 91 H Respiratory Rate 26 H 23 26 H Blood Pressure 121/76 Pulse Oximetry 96 95 95 02/02/18 04:00 02/02/18 04:30 02/02/18 05:00 Temperature 98.5 F Pulse Rate 95 H 103 H 106 H Respiratory Rate 20 24 28 H Blood Pressure 123/75 Pulse Oximetry 95 97 02/02/18 05:30 02/02/18 06:00 02/02/18 10:21 Temperature Pulse Rate 103 H 95 H Respiratory Rate 58 H 18 Blood Pressure Pulse Oximetry 91 L 92 L 92 L Intake & Output 02/01/18 02/02/18 02/02/18 18:59 06:59 18:59 Intake Total 911 / 911 960 / 960 Output Total 650 / 650 450 / 450 Balance 261 / 261 510 / 510 Weight 67.8 kg Intake: Tube Feeding 761 / 761 720 / 720 Water Bolus Amount 150 / 150 240 / 240 Output: Urine Amount (Catheter) 650 / 650 450 / 450 Condom 650 / 650 450 / 450 Other: Date of Last Bowel Movement 01/31/18 02/02/18 # Bowel Movements 1 # Incontinent Bowel Movements 1 02/01/18 17:15 Sputum - Endotracheal Gram Stain - Final 02/01/18 17:15 Sputum - Endotracheal Sputum Culture - Pending Lab - Hematology Results 02/01/18 02/02/18 05:23 05:53 WBC 24.9 H 19.0 H RBC 4.14 L 4.19 L Hgb 13.0 13.5 Hct 38.6 L 38.5 L MCV 93.2 92.0 MCH 31.5 32.2 MCHC 33.7 35.0 RDW 13.5 13.6 Plt Count 584 H 479 H MPV 9.4 9.4 Prelim Diff (Auto) Slide review pending Slide review pending Neut % (Auto) 76.0 H 68.6 Lymph % (Auto) 8.1 L 12.1 [place] % (Auto) 11.5 H 12.4 H Eos % (Auto) 3.4 5.7 H Baso % (Auto) 1.0 1.2 Neut # (Auto) 18.9 H 13.0 H Lymph # (Auto) 2.0 2.3 [place] # (Auto) 2.9 H 2.4 H Eos # (Auto) 0.8 H 1.1 H Baso # (Auto) 0.2 0.2 WBC Differential Manual diff final . Diff Scan Auto diff confirmed Seg Neuts % (Manual) 64 Band Neuts % (Manual) 2 Lymphocytes % (Manual) 10 Monocytes % (Manual) 16 H Eosinophils % (Manual) 8 H Abs Neuts (Manual) 16.4 H Differential Comment . . Platelet Estimate High H Platelet Morphology Normal Lab - Chemistry Results 02/01/18 05:23 Sodium 138 Potassium 3.7 Chloride 99 Carbon Dioxide 32.8 H Anion Gap 6 BUN 24 H Creatinine 0.76 Estimated GFR Greater than 89 Random Glucose 124 H Calcium 9.7 Imaging: ITS Impressions Head CT 01/05/18 05:01 CONCLUSION: 1. No acute intracranial findings. 2. Air-fluid levels in the right maxillary and sphenoid sinuses suggesting possible acute sinusitis versus air-fluid levels related to intubation.. . Abdomen X-Ray 01/20/18 05:00 CONCLUSION: Feeding tube distal tip is either in the first portion of the duodenum or pylorus region of the stomach. Venous Doppler Study 01/22/18 00:00 CONCLUSION: No venous thrombosis is identified within either upper extremity. Chest CT 01/25/18 00:00 CONCLUSION: 1. Small bilateral pleural effusions overall improved from January 08. 2. Improving bilateral airspace consolidation in the lungs. 3. Endotracheal tube, nasogastric tube and feeding tube and right central line in good position. Chest X-Ray 01/27/18 06:00 CONCLUSION: 1. Tracheostomy tube now in place. 2. Increased confluent opacity at the lung bases indicating atelectasis versus consolidation. 3. Right hemidiaphragm elevation again seen. Physical Exam: GENERAL: No acute distress. HEENT: Pupils reactive. Extraocular movements grossly intact. Oropharyngeal mucosa is slightly dry. LUNGS: Bilateral rhonchi. HEART: Regular S1, S2, without murmurs, rubs or gallops. ABDOMEN: soft, not tender, positive bowel sounds. EXTREMITIES: No clubbing or cyanosis or edema. SKIN: No diffuse rash. NEUROLOGIC: No gross focal finding PSYCHIATRIC: Calm Assessment and Plan - Plan IMPRESSION: 1. Pneumonia. 2. Bacteremia due to Staphylococcus coag negative. Repeat blood cultures have no growth. This possibly could be contamination. 3. Acute respiratory failure. 4. Intravenous drug use. 5. Probable aspiration. Chest x-ray shows improved aeration. ? R UE DVT Worsening leukocytosis. Possibly due to pulmonary infection. RECOMMENDATIONS: Monitor temperature. Monitor sputum for culture. Monitor white blood cell count. Currently patient appears stable. Will await sputum culture before giving antibiotics.
--- NOTE | 2018-02-02 15:08 | P.PNCC ---
Subjective Subjective Remarks/Hospital Course: 37-year-old male who is brought to [facility] emergency department after friends contacted [facility] due to decreased mental status with suspected heroin overdose. He had used heroin earlier in the evening. [facility] reportedly found him laying in emesis with a thready pulse. They gave him sequential doses of Narcan to a total of 2.4 mg IV at which point he became more awake and alert. He then had multiple episodes of vomiting in route. NG tube was placed by the paramedics and they aspirated gastric contents and then removed s NG prior to arrival. His room air sats were reportedly 84% and he was placed on NR. Patient told Dr. Lovett that this was his first time using heroin and that he injected it. CXR demonstrated RLL opacity. He was started on Unasyn for aspiration pneumonia and given nebs. He eventually was intubated due to hypoxia with sats in high 80s despite nonrebreather. [facility] consulted for admission. 01/06: Remains sedated and intubated, requires PEEP 12 and FiO2 70%, will try to wean these today if tolerated. 01/07: Agitated overnight and this morning, 2 episodes where the patient bit down on ETT, desaturated, and became unstable. Not tolerating pressure support trials. 01/08: Remains sedated, orally intubated on mechanical ventilation. PEEP remains at +12. CT chest done today shows worsening consolidations. Pleural effusion. 01/09: Remains critically ill with severe bilateral lower lobe consolidated pneumonias. Requiring markedly elevated mean airway pressure still. Patient is nutritionally depleted and not responding well to our aggressive medical treatment. 01/10: Continued requirements for markedly elevated fractional inspiratory oxygen concentration. Continued dense consolidation in both lower lobes PEEP reduced to avoid overexpansion of upper lobes. 01/11: Converted to airway pressure release ventilation because of inability to oxygenate adequately. We will probably have to add Flolan. Lengthy discussion with family about the severity of his respiratory problems and pneumonia. 01/12: Some progress but remains with high A-aO2 gradient. ET tube above clavicles; repositioned. Copious foul secretions. High requirement requirements for analgesia and sedation due to alcohol history. Will continue methadone and start scheduled Librium in an attempt to lower the intravenous requirements. 01/13: Remains sedated, orally intubated on mechanical ventilation. 01/14: Remains sedated, orally intubated on mechanical ventilation. Remains on APRV mode. On inhaled Flolan. 01/15: Remains sedated, intubated on AP RV mode mechanical ventilation. Inhaled Flolan titrated down to 30 ng/kg/min. Placed on rotarest bed yesterday. Starting Lasix to mobilize fluid in view of positive fluid balance. 01/16: Dense consolidation right lower lobe causing severe shunting and hypoxemia. He will likely require pronating to drain the basilar lower lobes. Patient remains critically ill with an unrelenting bilateral pneumonia proving refractory to our best antibiotic and ventilatory interventions. 01/17: Persistent shunting through consolidated right lower lobe is producing profound hypoxemia. Presently requiring roto-rest bed and markedly elevated mean airway pressures on mechanical ventilation. Sputum obtained during alveolar lavage of the right lower lobe yesterday is still pending. Patient remains critically ill and generally edematous. 01/18: Not progressing on Roto-Rest bed. Remains on 65% FiO2, inhaled Flolan, AP RV mode mechanical ventilation. We will attempt to place on prone ventilation after neuromuscular blockade and switching to pressure control inverse ratio mode mechanical ventilation. Also placing Dobbhoff to see if he tolerates tube feeds better and will be placing central line 01/19: Placed on prone ventilation on 01/19 after switching to PC/AC PIP+18, PEEP+ 15, Rate 18, I :E 3.5:1, FiO2 65%. FiO2 requirement down to 40% with proning. Remains on inhaled flolan. On neuromuscular blockade. 01/20: Continues on prone ventilation. Flolan being titrated down. Chest x-ray showed significant improvement in aeration bilaterally. 01/21: Remains on prone ventilation. On sedation and neuromuscular blockade. Flolan off since yesterday. O2 sats dropped on attempting to titrate PEEP below 14. Remains on 45-50% FiO2, rate 18, I:E ratio 1.5 :1 01/22: Sedated, orally intubated on mechanical ventilation. Remains on prone ventilation. PCO2 climbing. Changed to PRVC mode, PEEP +12. Increased rate to 24 and tidal volume to 500 this morning in view of elevated PCO2 on ABG. Chest x-ray is essentially clear bilaterally. Obtaining lower extremity venous Dopplers to evaluate for DVT and a 2D echo. 01/23: Remains sedated, orally intubated on neuromuscular blockade. Stopping from ventilation today. On PRVC mode mechanical ventilation tidal volume 450, rate 18, FiO2 40%, PEEP +10. Decreased I time to 1.2 seconds. Gradually advancing Dobbhoff feeds. Plan on stopping neuromuscular blockade later today. 01/24: Intubated sedated remains on neuromuscular blockade. Worsening oxygenation FiO2 up to 60% PEEP increased to 12. Chest x-ray shows right-sided atelectasis versus airspace disease. Bronchoscopy performed and BAL sent. off prone therapy. Mother updated at the bedside 01/25: Patient remains intubated sedation lightened. Eyes are open withdraws lower extremities localizes with left upper extremity slightly withdraws right. Off Nimbex. FiO2 down to 50% PEEP now 10. Persistent right lower lobe infiltrate/effusion. Check CT chest to better evaluate. Status post bronchoscopy yesterday 01/26: Remains intubated sedated remains off Nimbex. More awake eyes are open spontaneously moving upper extremities though generalized weakness persist. Weaker on the lower extremity. FiO2 requirement has increased overnight now 55 % PEEP at 10. We will proceed with tracheostomy with general surgery Dr. Ivey. 01/27: Status post tracheostomy with acceptable airway pressures and improving oxygen requirements. Continues to look around a little bit better. 01/28: TM temperature max 101.1, leukocytosis worsening. Neurologic function remains the same. Chest x-ray with clear gorman but unable to see behind the liver well. 01/29: Much more alert today. Up in chair breathing comfortably on T-piece. Continuing enteral nutrition. 01/30: Remains alert today, interactive through head nods, smiling occasionally. Seems to recognize family at bedside. Tolerating extending spontaneous breathing trials. We will work toward T-piece. Persistent leukocytosis is worrisome and we will investigate thoroughly. 01/31: Increasingly more alert each day. Now responding to family. Up in chair. Try to get him to T-piece now. Hopefully we can find inpatient rehab placement. Persistent leukocytosis is worrisome but he remains afebrile and he does not look ill. 02/01: Awake and alert. On CPAP trials. Wants to drink water. Tolerating PEG feeds. 02/02: Awake and alert. On T piece since yesterday. Cleared for p.o. diet. Remains on tube feeds via PEG Objective Vital Signs / I&O: Vital Signs 02/01/18 16:00 02/01/18 18:00 02/01/18 18:30 Temperature 98.4 F Pulse Rate 83 94 H 93 H Respiratory Rate 21 31 H 37 H Blood Pressure 118/72 128/82 Pulse Oximetry 95 96 97 02/01/18 19:00 02/01/18 19:30 02/01/18 20:00 Temperature 98.4 F 98.6 F Pulse Rate 93 H 84 84 Respiratory Rate 22 13 15 Blood Pressure 122/75 113/67 Pulse Oximetry 95 94 L 94 L 02/01/18 20:30 02/01/18 20:47 02/01/18 21:00 Temperature Pulse Rate 86 92 H Respiratory Rate 19 20 Blood Pressure 124/78 Pulse Oximetry 93 L 96 94 L 02/01/18 22:00 02/01/18 23:00 02/01/18 23:30 Temperature 98.6 F Pulse Rate 89 90 91 H Respiratory Rate 17 17 22 Blood Pressure 117/69 109/69 Pulse Oximetry 94 L 93 L 91 L 02/02/18 00:00 02/02/18 00:30 02/02/18 01:00 Temperature 98.4 F Pulse Rate 88 90 99 H Respiratory Rate 19 19 32 H Blood Pressure 112/66 121/76 Pulse Oximetry 92 L 90 L 92 L 02/02/18 01:30 02/02/18 02:00 02/02/18 02:30 Temperature Pulse Rate 98 H 92 H 94 H Respiratory Rate 23 23 26 H Blood Pressure 122/70 Pulse Oximetry 94 L 95 96 02/02/18 03:00 02/02/18 03:30 02/02/18 04:00 Temperature 98.5 F Pulse Rate 96 H 91 H 95 H Respiratory Rate 23 26 H 20 Blood Pressure 121/76 123/75 Pulse Oximetry 95 95 95 02/02/18 04:30 02/02/18 05:00 02/02/18 05:30 Temperature Pulse Rate 103 H 106 H 103 H Respiratory Rate 24 28 H 58 H Blood Pressure Pulse Oximetry 97 91 L 02/02/18 06:00 02/02/18 10:21 Temperature Pulse Rate 95 H Respiratory Rate 18 Blood Pressure Pulse Oximetry 92 L 92 L Intake & Output 02/01/18 02/02/18 02/02/18 18:59 06:59 18:59 Intake Total 911 / 911 960 / 960 Output Total 650 / 650 450 / 450 Balance 261 / 261 510 / 510 Weight 67.8 kg Intake: Tube Feeding 761 / 761 720 / 720 Water Bolus Amount 150 / 150 240 / 240 Output: Urine Amount (Catheter) 650 / 650 450 / 450 Condom 650 / 650 450 / 450 Other: Date of Last Bowel Movement 01/31/18 02/02/18 # Bowel Movements 1 # Incontinent Bowel Movements 1 Result Diagrams: 02/02/18 05:53 02/01/18 05:23 Objective Remarks: GEN: Alert HEENT: Trachea midline, trach site clean and dry, CARDIO: S1-S2 regular, no murmur. Neck: Supple. PULM: Some mobile secretions but generally clear. Comfortable respiratory pattern on T-piece ABD/GI: Soft, non-distended. No guarding, bowel sounds active. EXT/MSK: Trace peripheral edema, warm, adequately perfused. SKIN: No rashes or lesions. Superficial blisters drying nicely. NEURO: Opens eyes and tracks well. Now focusing. Moves 4 limbs spontaneously. Assessment and Plan - Problem List (1) Heroin overdose Code(s): T40.1X1A - Poisoning by heroin, accidental (unintentional), initial encounter Status: Acute (2) Polysubstance abuse Code(s): F19.10 - Other psychoactive substance abuse, uncomplicated Status: Chronic (3) Cocaine abuse Code(s): F14.10 - Cocaine abuse, uncomplicated Status: Acute (4) Elevated ETOH level Code(s): R78.0 - Finding of alcohol in blood Status: Acute (5) Marijuana abuse Code(s): F12.10 - Cannabis abuse, uncomplicated Status: Acute (6) TORREY (acute kidney injury) Code(s): N17.9 - Acute kidney failure, unspecified Status: Acute (7) Severe sepsis Code(s): A41.9 - Sepsis, unspecified organism; R65.20 - Severe sepsis without septic shock Status: Acute (8) Acute respiratory failure with hypoxia Code(s): J96.01 - Acute respiratory failure with hypoxia Status: Acute (9) Aspiration pneumonia Code(s): J69.0 - Pneumonitis due to inhalation of food and vomit Status: Acute (10) Vomiting Code(s): R11.10 - Vomiting, unspecified Status: Acute (11) Hyperglycemia Code(s): R73.9 - Hyperglycemia, unspecified Status: Acute (12) Protein-calorie malnutrition, moderate Code(s): E44.0 - Moderate protein-calorie malnutrition Status: Acute - Assessment and Plan Plan: NEURO: Heroin overdose Polysubstance abuse (marijuana, opiate, cocaine) Critical illness neuromyopathy Off Propofol/versed/fentanyl gtt. Discontinued Nimbex 01/24/2018 Thiamine/multivitamin supplementation CT head negative. Tolerance to narcotic analgesia implies chronic narcotic use On methadone and weaned fentanyl. PT/OT daily Librium has been discontinued and patient is more alert RESP: Acute hypoxemic respiratory failure Acute aspiration pneumonia New right lower lobe infiltrate Intubated in ED 01/05 due to hypoxia. inhaled Flolan discontinued on 01/21. Nimbex discontinued 01/24/2018 Initially on APRV mode which was switched to pressure control inverse ratio mechanical ventilation with Proning on 01/18. Changed to PRVC on 01/21 a.m. in view of elevated PCO2 to ensure adequate tidal volumes. Bronchoscopy/BAL for right lower lobe new infiltrate. CT chest -bibasilar consolidation DuoNeb every 6 hours. Albuterol every 2 hours as needed. Previous CT chest with dense bilateral basilar consolidations and small right pleural effusion Considerable sputum withdrawn from right lower lobe on 01/16 during bronchoscopy , culture results normal alistair. Tracheostomy 01/26. Tolerated CPAP trials and was placed on T-piece on 02/01. CV: Telemetry and BP monitoring in ICU diuresed to mobilize fluid Lower extremity venous Dopplers negative for DVTs. Echo Normal left ventricular size. Reduced EF 45-50%. GI: Continue tube feedings via PEG On Reglan IV. Zofran prn. Past swallow eval. Advance p.o. diet as tolerated FEN/RENAL: TORREY - suspect pre-renal secondary to overdose and sepsis, improved CPK is normal Urine output adequate Discontinue intravenous fluid. Received Diamox on 01/20 and 01/21 for metabolic alkalosis secondary to diuresis with Lasix. ID: Severe Sepsis secondary to aspiration pneumonia Right lower lobe infiltrate MRSA swab negative Blood cultures from 01/05 growing staph epidermidis in both bottles, repeat cultures sent 01/06 no growth at 1 day Consulted ID for antibiotic management in view of worsening respiratory status/ sepsis. Remains off antibiotics, ID awaiting sputum cultures and will decide regarding resuming antibiotics if needed. Cultures negative to date Lung gorman have cleared nicely. Right hemidiaphragm is elevated due to intestine above the liver. HEME: No acute hematologic issues aside from leukocytosis. Coags are normal. Hemoglobin has remained stable. ENDO: Acute hyperglycemia Monitor bedside glucose every 6 hours and administer low-dose insulin sliding scale as indicated. Poor diabetic control has been an intermittent problem PROPH: -PPI -SCDs/ Lovenox ACCESS: Peripheral lines
[2018-02-02] MEDS: Senna/Docusate Sodium 8.6/50 MG Tablet PO SCH ×2 (19:26→20:16)
[2018-02-03] MEDS: Methadone 10 MG Tablet PO SCH ×2 (03:29→14:19)
[2018-02-03] MEDS: Oral Hygiene Kit OROPHARYNG SCH ×3 (03:30→16:48)
[2018-02-03] MEDS: Famotidine PF Inj 20 MG/2 ML Vial IV.PUSH SCH ×2 (08:15→20:09)
[2018-02-03] MEDS: Chlorhexidine 0.12% Oral Kit 15 ML UDC OROPHARYNG SCH ×2 (08:15→20:09)
[2018-02-03] MEDS: Beneprotein Powder Packet G-TUBE SCH ×3 (08:15→17:10)
[2018-02-03] MEDS: Senna/Docusate Sodium 8.6/50 MG Tablet PO SCH ×2 (08:16→20:09)
--- NOTE | 2018-02-03 11:16 | P.PNID ---
Subjective Remarks: Patient is on trach collar. He is awake and alert and interactive. Appears somewhat confused. Afebrile. WBC still elevated. Sputum culture has staph aureus. 37-year-old white male who was brought in to the emergency department when he was found down by a friend. The patient was noted to have overdosed on drugs. He was noted to have used IV heroin. In the emergency department, his temperature was normal. Chest x-ray was performed and showed an elevation of the right hemidiaphragm and right lower lobe consolidation versus atelectasis and small to moderate-sized right pleural effusion. Blood cultures on admission had Staph coagulase negative. Antibiotics: Past Medical History: Intravenous drug abuse. Allergies/Adverse Reactions: Allergies No Allergy Information Available Allergy (Verified 01/20/18 01:00) UTO Objective Vital Signs 02/02/18 11:29 02/02/18 11:30 02/02/18 12:00 Temperature Pulse Rate 85 92 H 94 H Respiratory Rate 67 H 57 H 35 H Blood Pressure 142/77 H Pulse Oximetry 95 95 95 02/02/18 12:29 02/02/18 12:30 02/02/18 13:00 Temperature Pulse Rate 93 H 91 H 94 H Respiratory Rate 33 H 46 H 21 Blood Pressure 136/79 Pulse Oximetry 94 L 95 93 L 02/02/18 13:29 02/02/18 13:30 02/02/18 14:00 Temperature Pulse Rate 95 H 94 H 95 H Respiratory Rate 35 H 44 H 76 H Blood Pressure 127/79 Pulse Oximetry 93 L 93 L 96 02/02/18 14:29 02/02/18 14:30 02/02/18 15:00 Temperature Pulse Rate 95 H 96 H 97 H Respiratory Rate 23 31 H 24 Blood Pressure 126/81 Pulse Oximetry 93 L 94 L 94 L 02/02/18 15:29 02/02/18 15:30 02/02/18 16:00 Temperature Pulse Rate 96 H 100 H 103 H Respiratory Rate 25 H 30 H 24 Blood Pressure 132/79 Pulse Oximetry 94 L 95 95 02/02/18 16:29 02/02/18 16:30 02/02/18 17:00 Temperature Pulse Rate 88 103 H 97 H Respiratory Rate 17 27 H 41 H Blood Pressure 133/88 Pulse Oximetry 95 97 96 02/02/18 17:29 02/02/18 17:30 02/02/18 18:00 Temperature Pulse Rate 98 H 96 H 94 H Respiratory Rate 27 H 28 H 46 H Blood Pressure 127/84 Pulse Oximetry 93 L 93 L 97 02/02/18 18:29 02/02/18 18:30 02/02/18 19:00 Temperature Pulse Rate 93 H 93 H 96 H Respiratory Rate 22 20 26 H Blood Pressure 129/80 Pulse Oximetry 96 95 94 L 02/02/18 19:29 02/02/18 19:30 02/02/18 20:00 Temperature 98.7 F Pulse Rate 98 H 94 H 100 H Respiratory Rate 28 H 20 22 Blood Pressure 130/79 126/84 Pulse Oximetry 97 97 97 02/02/18 20:01 02/02/18 20:29 02/02/18 20:30 Temperature Pulse Rate 98 H 95 H Respiratory Rate 25 H 28 H Blood Pressure 126/84 Pulse Oximetry 97 93 L 94 L 02/02/18 21:00 02/02/18 21:29 02/02/18 21:30 Temperature Pulse Rate 102 H 96 H 96 H Respiratory Rate 32 H 23 23 Blood Pressure 135/77 Pulse Oximetry 93 L 94 L 93 L 02/02/18 21:59 02/02/18 22:00 02/02/18 22:02 Temperature Pulse Rate 102 H 96 H 96 H Respiratory Rate 22 19 Blood Pressure 125/77 127/77 Pulse Oximetry 93 L 94 L 02/02/18 22:30 02/02/18 23:00 02/02/18 23:02 Temperature Pulse Rate 96 H 97 H 94 H Respiratory Rate 27 H 25 H 25 H Blood Pressure 131/69 Pulse Oximetry 95 95 93 L 02/02/18 23:30 02/03/18 00:00 02/03/18 00:02 Temperature 98.7 F Pulse Rate 96 H 95 H 95 H Respiratory Rate 22 23 21 Blood Pressure 127/83 127/83 Pulse Oximetry 93 L 94 L 93 L 02/03/18 00:30 02/03/18 01:00 02/03/18 01:02 Temperature Pulse Rate 98 H 93 H 90 Respiratory Rate 46 H 23 21 Blood Pressure 128/81 Pulse Oximetry 95 92 L 95 02/03/18 01:30 02/03/18 02:00 02/03/18 02:02 Temperature Pulse Rate 94 H 98 H 99 H Respiratory Rate 26 H 23 27 H Blood Pressure 126/77 Pulse Oximetry 95 95 94 L 02/03/18 02:30 02/03/18 03:00 02/03/18 03:02 Temperature Pulse Rate 94 H 97 H 98 H Respiratory Rate 20 37 H 47 H Blood Pressure 139/83 Pulse Oximetry 94 L 97 97 02/03/18 03:30 02/03/18 04:00 02/03/18 04:02 Temperature 98.0 F Pulse Rate 101 H 83 81 Respiratory Rate 30 H 16 16 Blood Pressure 126/77 Pulse Oximetry 94 L 93 L 95 02/03/18 04:30 02/03/18 04:35 02/03/18 05:00 Temperature Pulse Rate 85 96 H Respiratory Rate 18 29 H Blood Pressure Pulse Oximetry 95 96 94 L 02/03/18 05:02 02/03/18 05:30 02/03/18 06:00 Temperature Pulse Rate 96 H 93 H 92 H Respiratory Rate 28 H 25 H 20 Blood Pressure 128/79 Pulse Oximetry 94 L 94 L 93 L 02/03/18 06:02 02/03/18 06:30 02/03/18 07:00 Temperature Pulse Rate 94 H 93 H 91 H Respiratory Rate 20 21 21 Blood Pressure 127/80 Pulse Oximetry 92 L 95 96 02/03/18 07:02 02/03/18 07:30 02/03/18 07:43 Temperature Pulse Rate 93 H 95 H 90 Respiratory Rate 21 21 Blood Pressure 128/77 Pulse Oximetry 96 97 02/03/18 08:00 02/03/18 08:02 02/03/18 08:30 Temperature 98.3 F Pulse Rate 91 H 93 H 85 Respiratory Rate 21 21 22 Blood Pressure 128/78 Pulse Oximetry 96 95 97 02/03/18 09:00 02/03/18 09:02 02/03/18 09:12 Temperature Pulse Rate 90 88 88 Respiratory Rate 22 23 19 Blood Pressure 129/76 Pulse Oximetry 96 94 L 93 L 02/03/18 09:30 02/03/18 09:51 Temperature Pulse Rate 92 H 85 Respiratory Rate 17 Blood Pressure Pulse Oximetry 90 L Intake & Output 02/02/18 02/03/18 02/03/18 18:59 06:59 18:59 Intake Total 672 / 672 770 / 770 Output Total 475 / 475 900 / 900 Balance 197 / 197 -130 / -130 Weight 71.2 kg Intake: Tube Feeding 672 / 672 710 / 710 Tube Irrigant 60 / 60 Output: Urine 900 / 900 Urine Amount (Catheter) 475 / 475 Condom 475 / 475 Other: Date of Last Bowel Movement 02/02/18 02/03/18 02/03/18 # Bowel Movements 2 02/01/18 17:15 Sputum - Endotracheal Gram Stain - Final 02/01/18 17:15 Sputum - Endotracheal Sputum Culture - Preliminary Staphylococcus aureus Lab - Hematology Results 02/02/18 05:53 WBC 19.0 H RBC 4.19 L Hgb 13.5 Hct 38.5 L MCV 92.0 MCH 32.2 MCHC 35.0 RDW 13.6 Plt Count 479 H MPV 9.4 Prelim Diff (Auto) Slide review pending Neut % (Auto) 68.6 Lymph % (Auto) 12.1 Wise % (Auto) 12.4 H Eos % (Auto) 5.7 H Baso % (Auto) 1.2 Neut # (Auto) 13.0 H Lymph # (Auto) 2.3 Wise # (Auto) 2.4 H Eos # (Auto) 1.1 H Baso # (Auto) 0.2 WBC Differential . Diff Scan Auto diff confirmed Differential Comment . Imaging: ITS Impressions Head CT 01/05/18 05:01 CONCLUSION: 1. No acute intracranial findings. 2. Air-fluid levels in the right maxillary and sphenoid sinuses suggesting possible acute sinusitis versus air-fluid levels related to intubation.. . Abdomen X-Ray 01/20/18 05:00 CONCLUSION: Feeding tube distal tip is either in the first portion of the duodenum or pylorus region of the stomach. Venous Doppler Study 01/22/18 00:00 CONCLUSION: No venous thrombosis is identified within either upper extremity. Chest CT 01/25/18 00:00 CONCLUSION: 1. Small bilateral pleural effusions overall improved from January 08. 2. Improving bilateral airspace consolidation in the lungs. 3. Endotracheal tube, nasogastric tube and feeding tube and right central line in good position. Chest X-Ray 01/27/18 06:00 CONCLUSION: 1. Tracheostomy tube now in place. 2. Increased confluent opacity at the lung bases indicating atelectasis versus consolidation. 3. Right hemidiaphragm elevation again seen. Physical Exam: GENERAL: No acute distress. HEENT: Pupils reactive. Extraocular movements grossly intact. Oropharyngeal mucosa is slightly dry. LUNGS: Bibasilar rhonchi. HEART: Regular S1, S2, without murmurs, rubs or gallops. ABDOMEN: soft, not tender, positive bowel sounds. EXTREMITIES: No clubbing or cyanosis or edema. SKIN: No diffuse rash. NEUROLOGIC: No gross focal finding PSYCHIATRIC: Calm Assessment and Plan - Plan IMPRESSION: 1. Pneumonia. 2. Bacteremia due to Staphylococcus coag negative. Repeat blood cultures have no growth. This possibly could be contamination. 3. Acute respiratory failure. 4. Intravenous drug use. 5. Probable aspiration. Chest x-ray shows improved aeration. ? R UE DVT Worsening leukocytosis. Sputum culture has staph aureus. RECOMMENDATIONS: Begin ceftriaxone. Continue to monitor sputum culture for sensitivity of the staph aureus. Monitor temperature. Monitor white blood cell count.
--- NOTE | 2018-02-03 13:39 | P.PNCC ---
Subjective Subjective Remarks/Hospital Course: 37-year-old male who is brought to [facility] emergency department after friends contacted [facility] due to decreased mental status with suspected heroin overdose. He had used heroin earlier in the evening. [facility] reportedly found him laying in emesis with a thready pulse. They gave him sequential doses of Narcan to a total of 2.4 mg IV at which point he became more awake and alert. He then had multiple episodes of vomiting in route. NG tube was placed by the paramedics and they aspirated gastric contents and then removed s NG prior to arrival. His room air sats were reportedly 84% and he was placed on NR. Patient told Dr. Lovett that this was his first time using heroin and that he injected it. CXR demonstrated RLL opacity. He was started on Unasyn for aspiration pneumonia and given nebs. He eventually was intubated due to hypoxia with sats in high 80s despite nonrebreather. Behavioral Intervention Specialist consulted for admission. 01/06: Remains sedated and intubated, requires PEEP 12 and FiO2 70%, will try to wean these today if tolerated. 01/07: Agitated overnight and this morning, 2 episodes where the patient bit down on ETT, desaturated, and became unstable. Not tolerating pressure support trials. 01/08: Remains sedated, orally intubated on mechanical ventilation. PEEP remains at +12. CT chest done today shows worsening consolidations. Pleural effusion. 01/09: Remains critically ill with severe bilateral lower lobe consolidated pneumonias. Requiring markedly elevated mean airway pressure still. Patient is nutritionally depleted and not responding well to our aggressive medical treatment. 01/10: Continued requirements for markedly elevated fractional inspiratory oxygen concentration. Continued dense consolidation in both lower lobes PEEP reduced to avoid overexpansion of upper lobes. 01/11: Converted to airway pressure release ventilation because of inability to oxygenate adequately. We will probably have to add Flolan. Lengthy discussion with family about the severity of his respiratory problems and pneumonia. 01/12: Some progress but remains with high A-aO2 gradient. ET tube above clavicles; repositioned. Copious foul secretions. High requirement requirements for analgesia and sedation due to alcohol history. Will continue methadone and start scheduled Librium in an attempt to lower the intravenous requirements. 01/13: Remains sedated, orally intubated on mechanical ventilation. 01/14: Remains sedated, orally intubated on mechanical ventilation. Remains on APRV mode. On inhaled Flolan. 01/15: Remains sedated, intubated on AP RV mode mechanical ventilation. Inhaled Flolan titrated down to 30 ng/kg/min. Placed on rotarest bed yesterday. Starting Lasix to mobilize fluid in view of positive fluid balance. 01/16: Dense consolidation right lower lobe causing severe shunting and hypoxemia. He will likely require pronating to drain the basilar lower lobes. Patient remains critically ill with an unrelenting bilateral pneumonia proving refractory to our best antibiotic and ventilatory interventions. 01/17: Persistent shunting through consolidated right lower lobe is producing profound hypoxemia. Presently requiring roto-rest bed and markedly elevated mean airway pressures on mechanical ventilation. Sputum obtained during alveolar lavage of the right lower lobe yesterday is still pending. Patient remains critically ill and generally edematous. 01/18: Not progressing on Roto-Rest bed. Remains on 65% FiO2, inhaled Flolan, AP RV mode mechanical ventilation. We will attempt to place on prone ventilation after neuromuscular blockade and switching to pressure control inverse ratio mode mechanical ventilation. Also placing Dobbhoff to see if he tolerates tube feeds better and will be placing central line 01/19: Placed on prone ventilation on 01/19 after switching to PC/AC PIP+18, PEEP+ 15, Rate 18, I :E 3.5:1, FiO2 65%. FiO2 requirement down to 40% with proning. Remains on inhaled flolan. On neuromuscular blockade. 01/20: Continues on prone ventilation. Flolan being titrated down. Chest x-ray showed significant improvement in aeration bilaterally. 01/21: Remains on prone ventilation. On sedation and neuromuscular blockade. Flolan off since yesterday. O2 sats dropped on attempting to titrate PEEP below 14. Remains on 45-50% FiO2, rate 18, I:E ratio 1.5 :1 01/22: Sedated, orally intubated on mechanical ventilation. Remains on prone ventilation. PCO2 climbing. Changed to PRVC mode, PEEP +12. Increased rate to 24 and tidal volume to 500 this morning in view of elevated PCO2 on ABG. Chest x-ray is essentially clear bilaterally. Obtaining lower extremity venous Dopplers to evaluate for DVT and a 2D echo. 01/23: Remains sedated, orally intubated on neuromuscular blockade. Stopping from ventilation today. On PRVC mode mechanical ventilation tidal volume 450, rate 18, FiO2 40%, PEEP +10. Decreased I time to 1.2 seconds. Gradually advancing Dobbhoff feeds. Plan on stopping neuromuscular blockade later today. 01/24: Intubated sedated remains on neuromuscular blockade. Worsening oxygenation FiO2 up to 60% PEEP increased to 12. Chest x-ray shows right-sided atelectasis versus airspace disease. Bronchoscopy performed and BAL sent. off prone therapy. Mother updated at the bedside 01/25: Patient remains intubated sedation lightened. Eyes are open withdraws lower extremities localizes with left upper extremity slightly withdraws right. Off Nimbex. FiO2 down to 50% PEEP now 10. Persistent right lower lobe infiltrate/effusion. Check CT chest to better evaluate. Status post bronchoscopy yesterday 01/26: Remains intubated sedated remains off Nimbex. More awake eyes are open spontaneously moving upper extremities though generalized weakness persist. Weaker on the lower extremity. FiO2 requirement has increased overnight now 55 % PEEP at 10. We will proceed with tracheostomy with general surgery Dr. Ivey. 01/27: Status post tracheostomy with acceptable airway pressures and improving oxygen requirements. Continues to look around a little bit better. 01/28: TM temperature max 101.1, leukocytosis worsening. Neurologic function remains the same. Chest x-ray with clear gorman but unable to see behind the liver well. 01/29: Much more alert today. Up in chair breathing comfortably on T-piece. Continuing enteral nutrition. 01/30: Remains alert today, interactive through head nods, smiling occasionally. Seems to recognize family at bedside. Tolerating extending spontaneous breathing trials. We will work toward T-piece. Persistent leukocytosis is worrisome and we will investigate thoroughly. 01/31: Increasingly more alert each day. Now responding to family. Up in chair. Try to get him to T-piece now. Hopefully we can find inpatient rehab placement. Persistent leukocytosis is worrisome but he remains afebrile and he does not look ill. 02/01: Awake and alert. On CPAP trials. Wants to drink water. Tolerating PEG feeds. 02/02: Awake and alert. On T piece since yesterday. Cleared for p.o. diet. Remains on tube feeds via PEG 02/03: No overnight events, tolerating T piece x several days. Awake and alert, offers no complaints. Objective Vital Signs / I&O: Vital Signs 02/02/18 13:29 02/02/18 13:30 02/02/18 14:00 Temperature Pulse Rate 95 H 94 H 95 H Respiratory Rate 35 H 44 H 76 H Blood Pressure 127/79 Pulse Oximetry 93 L 93 L 96 02/02/18 14:29 02/02/18 14:30 02/02/18 15:00 Temperature Pulse Rate 95 H 96 H 97 H Respiratory Rate 23 31 H 24 Blood Pressure 126/81 Pulse Oximetry 93 L 94 L 94 L 02/02/18 15:29 02/02/18 15:30 02/02/18 16:00 Temperature Pulse Rate 96 H 100 H 103 H Respiratory Rate 25 H 30 H 24 Blood Pressure 132/79 Pulse Oximetry 94 L 95 95 02/02/18 16:29 02/02/18 16:30 02/02/18 17:00 Temperature Pulse Rate 88 103 H 97 H Respiratory Rate 17 27 H 41 H Blood Pressure 133/88 Pulse Oximetry 95 97 96 02/02/18 17:29 02/02/18 17:30 02/02/18 18:00 Temperature Pulse Rate 98 H 96 H 94 H Respiratory Rate 27 H 28 H 46 H Blood Pressure 127/84 Pulse Oximetry 93 L 93 L 97 02/02/18 18:29 18 18:30 02/02/18 19:00 Temperature Pulse Rate 93 H 93 H 96 H Respiratory Rate 22 20 26 H Blood Pressure 129/80 Pulse Oximetry 96 95 94 L 02/02/18 19:29 02/02/18 19:30 02/02/18 20:00 Temperature 98.7 F Pulse Rate 98 H 94 H 100 H Respiratory Rate 28 H 20 22 Blood Pressure 130/79 126/84 Pulse Oximetry 97 97 97 02/02/18 20:01 02/02/18 20:29 02/02/18 20:30 Temperature Pulse Rate 98 H 95 H Respiratory Rate 25 H 28 H Blood Pressure 126/84 Pulse Oximetry 97 93 L 94 L 02/02/18 21:00 02/02/18 21:29 02/02/18 21:30 Temperature Pulse Rate 102 H 96 H 96 H Respiratory Rate 32 H 23 23 Blood Pressure 135/77 Pulse Oximetry 93 L 94 L 93 L 02/02/18 21:59 02/02/18 22:00 02/02/18 22:02 Temperature Pulse Rate 102 H 96 H 96 H Respiratory Rate 22 19 Blood Pressure 125/77 127/77 Pulse Oximetry 93 L 94 L 02/02/18 22:30 02/02/18 23:00 02/02/18 23:02 Temperature Pulse Rate 96 H 97 H 94 H Respiratory Rate 27 H 25 H 25 H Blood Pressure 131/69 Pulse Oximetry 95 95 93 L 02/02/18 23:30 02/03/18 00:00 02/03/18 00:02 Temperature 98.7 F Pulse Rate 96 H 95 H 95 H Respiratory Rate 22 23 21 Blood Pressure 127/83 127/83 Pulse Oximetry 93 L 94 L 93 L 02/03/18 00:30 02/03/18 01:00 02/03/18 01:02 Temperature Pulse Rate 98 H 93 H 90 Respiratory Rate 46 H 23 21 Blood Pressure 128/81 Pulse Oximetry 95 92 L 95 02/03/18 01:30 02/03/18 02:00 02/03/18 02:02 Temperature Pulse Rate 94 H 98 H 99 H Respiratory Rate 26 H 23 27 H Blood Pressure 126/77 Pulse Oximetry 95 95 94 L 02/03/18 02:30 02/03/18 03:00 02/03/18 03:02 Temperature Pulse Rate 94 H 97 H 98 H Respiratory Rate 20 37 H 47 H Blood Pressure 139/83 Pulse Oximetry 94 L 97 97 02/03/18 03:30 02/03/18 04:00 02/03/18 04:02 Temperature 98.0 F Pulse Rate 101 H 83 81 Respiratory Rate 30 H 16 16 Blood Pressure 126/77 Pulse Oximetry 94 L 93 L 95 02/03/18 04:30 02/03/18 04:35 02/03/18 05:00 Temperature Pulse Rate 85 96 H Respiratory Rate 18 29 H Blood Pressure Pulse Oximetry 95 96 94 L 02/03/18 05:02 02/03/18 05:30 02/03/18 06:00 Temperature Pulse Rate 96 H 93 H 92 H Respiratory Rate 28 H 25 H 20 Blood Pressure 128/79 Pulse Oximetry 94 L 94 L 93 L 02/03/18 06:02 02/03/18 06:30 02/03/18 07:00 Temperature Pulse Rate 94 H 93 H 91 H Respiratory Rate 20 21 21 Blood Pressure 127/80 Pulse Oximetry 92 L 95 96 02/03/18 07:02 02/03/18 07:30 02/03/18 07:43 Temperature Pulse Rate 93 H 95 H 90 Respiratory Rate 21 21 Blood Pressure 128/77 Pulse Oximetry 96 97 02/03/18 08:00 02/03/18 08:02 02/03/18 08:30 Temperature 98.3 F Pulse Rate 91 H 93 H 85 Respiratory Rate 21 21 22 Blood Pressure 128/78 Pulse Oximetry 96 95 97 02/03/18 09:00 02/03/18 09:02 02/03/18 09:12 Temperature Pulse Rate 90 88 88 Respiratory Rate 22 23 19 Blood Pressure 129/76 Pulse Oximetry 96 94 L 93 L 02/03/18 09:30 02/03/18 09:51 02/03/18 10:00 Temperature Pulse Rate 92 H 85 85 Respiratory Rate 17 20 Blood Pressure Pulse Oximetry 90 L 93 L 02/03/18 10:02 02/03/18 10:30 02/03/18 11:00 Temperature Pulse Rate 84 99 H 95 H Respiratory Rate 18 21 20 Blood Pressure 118/74 Pulse Oximetry 93 L 95 96 02/03/18 11:02 02/03/18 11:30 02/03/18 12:00 Temperature 98.4 F Pulse Rate 96 H 96 H 95 H Respiratory Rate 21 22 24 Blood Pressure 149/88 H Pulse Oximetry 97 94 L 94 L 02/03/18 12:02 02/03/18 12:30 02/03/18 13:00 Temperature Pulse Rate 95 H 102 H 93 H Respiratory Rate 22 21 23 Blood Pressure 129/76 Pulse Oximetry 94 L 96 95 02/03/18 13:02 Temperature Pulse Rate 92 H Respiratory Rate 22 Blood Pressure 124/81 Pulse Oximetry 94 L Intake & Output 02/02/18 02/03/18 02/03/18 18:59 06:59 18:59 Intake Total 672 / 672 770 / 770 100 / 100 Output Total 475 / 475 900 / 900 300 / 300 Balance 197 / 197 -130 / -130 -200 / -200 Weight 71.2 kg Intake: IV 100 / 100 Rocephin Inj 2,000 MG In NS Inj 100 / 100 100 ML @ 200 mls/hr IV.SIG Q24H [facility] Rx#:[id number] Tube Feeding 672 / 672 710 / 710 Tube Irrigant 60 / 60 Output: Urine 900 / 900 300 / 300 Urine Amount (Catheter) 475 / 475 Condom 475 / 475 Other: # Voids 3 Date of Last Bowel Movement 02/02/18 02/03/18 02/03/18 # Bowel Movements 2 Result Diagrams: 02/02/18 05:53 02/01/18 05:23 Objective Remarks: GEN: Awake and alert, no acute distress HEENT: NCAT, PERRL NECK: Trach clean and dry CARDIO: Regular rate and rhythm PULM: Coarse breath sounds bilaterally, no tachypnea or respiratory distress ABD/GI: Soft, non-tender in all quadrants EXT/MSK: Trace peripheral edema SKIN: Warm and well-perfused NEURO: RASS +1, awake and alert, follows all commands PSYCH: Calm Assessment and Plan - Assessment and Plan Plan: 37yM presenting with drug overdose, aspiration pneumonia, ARDS, acute hypoxic respiratory failure, encephalopathy NEURO: Heroin overdose Polysubstance abuse (marijuana, opiate, cocaine) Critical illness neuromyopathy * Continue multivitamin supplement * Continue methadone * Delirium precautions * PT/ OOB as tolerated CARDIO: Cardiomyopathy * Continue cardiac monitoring * Echo on 02/01 showed EF of 45-50%, PAP 18 mmHg * Does not need further diuresis, appears euvolemic RESP: Acute hypoxemic respiratory failure- improving Acute aspiration pneumonia Acute respiratory distress syndrome- resolved * s/p flolan, chemical paralysis, proning for ARDS * s/p tracheostomy * Now tolerating T piece x several days * Will ask speech therapy to start teaching patient to use Passey-Arsalan valve * Continue antibiotics as per ID * Continue nebs F/E/N, RENAL: Acute kidney injury- resolved * Change TFs to nocturnal only, patient passed swallow eval for mechanical soft / thin liquids, start calorie count. When able to take enough PO to maintain daily calories, will d/c TFs. * No maintenance fluids * ICU electrolyte protocol ID: Severe Sepsis secondary to aspiration pneumonia Right lower lobe infiltrate * Sputum culture from 02/01 growing MSSA * ID following, patient started on rocephin today * Afebrile, leukocytosis improving, monitor for signs of worsening infection HEME: Acute leukocytosis- improving * No acute issues ENDO: Acute hyperglycemia * Glucose well-controlled overnight PROPH: -PPI -SCDs/ Lovenox OVERALL: This patient is improving and has been stable for the past several days. He can move out of ISC to vent floor near nurses station. Disposition planning. Level 2 follow up To help prompt me to consider important information that might be impacting today's encounter and assessment, information from prior notes written by myself or my colleagues may have been "brought forward" into today's note. My signature on this note, however, is an attestation that I personally performed the exam, history, and/or decision-making noted today, and, unless otherwise indicated, the interactions with patient, family, and staff as well as the review of records all occurred today. I also attest that the listed assessment and stated plan reflect my best clinical judgment today based on the combination of historical information, prior notes, and today's exam/ interactions. Code Status: Full Discussed Condition With: TAWNY
[2018-02-03] MEDS: Acetaminophen 325 MG Tablet PO PRN (21:28)
[2018-02-04] MEDS: Methadone 10 MG Tablet PO SCH ×2 (03:23→14:37)
[2018-02-04] MEDS: Oral Hygiene Kit OROPHARYNG SCH ×4 (03:25→15:54)
[2018-02-04 06:15] LABS: Baso # (Auto) 0.2 th/mm3 (0.0-0.2); Baso % (Auto) 1.2 % (0.0-2.0); Eos # (Auto) 0.9 th/mm3 (0.0-0.4); Eos % (Auto) 5.3 % (0.0-4.0); Hematocrit 36.6 % (39.0-51.0); Hemoglobin 12.5 gm/dL (13.0-17.0); Lymph # (Auto) 2.3 th/mm3 (1.0-4.8); Lymph % (Auto) 13.9 % (9.0-44.0); Mean Corpuscular HGB Conc 34.2 % (32.0-36.0); Mean Corpuscular Hemoglobin 31.5 pg (27.0-34.0); Mean Corpuscular Volume 92.2 fL (80.0-100.0); Mean Platelet Volume 9.5 fL (7.0-11.0); Mono # (Auto) 2.3 th/mm3 (0.0-0.9); Mono % (Auto) 13.8 % (0.0-8.0); Neut % (Auto) 65.8 % (16.0-70.0); Platelet Count 444 th/mm3 (150-450); Red Blood Count 3.97 mil/mm3 (4.50-5.90); Red Cell Distribution Width 13.5 % (11.6-17.2); White Blood Count 16.7 th/mm3 (4.0-11.0)
[2018-02-04 06:35] LABS: Anion Gap 8 meq/L (5-15); Blood Urea Nitrogen 18 mg/dL (7-18); Carbon Dioxide 29.3 meq/L (21.0-32.0); Chloride 99 meq/L (98-107); Glomerular Filtration Rate Greater Than 89 mL/min (>89); Glucose,Random 101 mg/dL (74-106); Magnesium 2.1 mg/dL (1.5-2.5); Potassium 4.3 meq/L (3.5-5.1); Sodium 136 meq/L (136-145)
[2018-02-04] MEDS: Famotidine PF Inj 20 MG/2 ML Vial IV.PUSH SCH ×2 (08:13→21:39)
[2018-02-04] MEDS: Senna/Docusate Sodium 8.6/50 MG Tablet PO SCH ×2 (08:14→21:40)
[2018-02-04] MEDS: Chlorhexidine 0.12% Oral Kit 15 ML UDC OROPHARYNG SCH ×2 (08:15→21:40)
[2018-02-04] MEDS: Beneprotein Powder Packet G-TUBE SCH ×2 (08:16→13:50)
[2018-02-04 08:37] LABS: Eosinophils 3 % (0-4); Lymphocytes 14 % (9-44); Monocytes 20 % (0-8); Toxic Granulation 1+
--- NOTE | 2018-02-04 11:29 | P.PNIM ---
Subjective Interval history: Assuming care of a 37-year-old male who has a history of overdose with heroin that was treated with Narcan on day of admission, patient had had altered mental status at home and had been vomiting there and in transit to the ER. Following admission he had respiratory distress secondary to aspiration pneumonia and required intubation. He has had a prolonged stay in the ICU but has improved to the point that we have been consulted to transfer him to [facility] [place]. His main complaint today is abdominal discomfort near the site of his PEG tube. He has a tracheostomy in place with blow-by oxygen at 28%. Physical Exam Vital signs: Last Vital Signs Temp 98.1 F 02/04/18 08:00 Pulse 84 02/04/18 09:30 Resp 14 02/04/18 09:30 BP 117/75 02/04/18 09:02 Pulse Ox 91 L 02/04/18 09:30 Intake & Output 02/02/18 02/03/18 02/04/18 02/05/18 06:59 06:59 06:59 06:59 Intake Total 1871 / 1871 1442 / 1442 1659 / 1659 Output Total 1100 / 1100 1375 / 1375 1100 / 1100 Balance 771 / 771 67 / 67 559 / 559 Weight 67.8 kg 71.2 kg 69.9 kg Narrative: GENERAL: AAOx3, no acute distress, cooperative with staff SKIN: Warm and dry. No rashes HEAD: Atruamtic, normocephalic. EYES: No scleral icterus. No injection or drainage. ENT: Moist mucous membranes, patent nares, no erythema of oropharynx. NECK: Supple, trachea midline. No JVD or lymphadenopathy. Normal thyroid. CARDIOVASCULAR: Regular rate and rhythm. No murmurs, gallops, or rubs. RESPIRATORY: Transmitted upper airway congestive sounds. No crackles or wheezes. No accessory muscle use. Tracheostomy in place with blow-by oxygen GASTROINTESTINAL: Abdomen soft, non-tender, nondistended, normal active bowel sounds, PEG tube in place MUSCULOSKELETAL: No cyanosis, or edema. NEURO: CN II-XII grossly intact, no focal deficits, no slurring of speech Urinary Catheter Management Indwelling Urethral Catheter: Cath placed during this visit: yes, but has since been removed by the nurse Insertion date: 01/18/18 Insertion time: 09:10 Removal date: 01/28/18 Removal time: 06:00 Condom: Cath placed during this visit: yes Urethral indwelling: Yes Reason for continuing: Hourly intake/output Insertion date: 01/28/18 Insertion time: 06:00 Results Labs CBC & Chem 7: 02/04/18 05:17 02/04/18 05:17 Labs: Microbiology 02/01/18 17:15 Sputum - Endotracheal Gram Stain - Final 02/01/18 17:15 Sputum - Endotracheal Sputum Culture - Final Staphylococcus aureus Assessment and Plan Plan Severe sepsis secondary to aspiration pneumonia Prolonged stay in the ICU due to severe sepsis related to aspiration pneumonia secondary to IVDU s/p treatment with Zosyn, vancomycin prior S/p Flolan, vent secondary to ARDS Patient has tracheostomy in place Continuing blow-by oxygen and tracheostomy management with regular suction Requesting respiratory therapy to do trial of Passy-Arsalan valve New infiltrate right lower lobe Infectious disease recommends ceftriaxone We will follow clinically Appreciate infectious disease Heroin overdose, IVDU By history patient claims his overdose was on his first use of heroin He was given Narcan in transit, vomited, causing aspiration pneumonia Patient has been here long enough that detox is not an issue We will plan to wean down on his methadone Will discuss further the value of quitting heroin DVT Prophylaxis Lovenox Disposition Transfer to MedSur floor Do trial of Passy-Arsalan valve Progress Note: Quality VTE Deep Vein Thrombosis/Pulmonary Embolism Present on Admission: No
[2018-02-04] MEDS: Acetaminophen 325 MG Tablet PO PRN (13:48)
[2018-02-05] MEDS: Oral Hygiene Kit OROPHARYNG SCH ×4 (01:08→15:53)
[2018-02-05] MEDS: Methadone 10 MG Tablet PO SCH ×2 (04:36→15:51)
[2018-02-05] MEDS: Senna/Docusate Sodium 8.6/50 MG Tablet PO SCH ×2 (09:30→21:24)
[2018-02-05] MEDS: Famotidine PF Inj 20 MG/2 ML Vial IV.PUSH SCH ×2 (09:30→21:23)
[2018-02-05] MEDS: Beneprotein Powder Packet G-TUBE SCH ×4 (09:40→17:45)
[2018-02-05] MEDS: Chlorhexidine 0.12% Oral Kit 15 ML UDC OROPHARYNG SCH ×2 (09:40→21:23)
--- NOTE | 2018-02-05 12:47 | P.PNIM ---
Subjective Interval history: Patient transferred out of critical care known to [facility] yesterday. He has been doing very well with activity, was able to walk with physical therapist. His only complaint is intermittent pain at the site of his PEG tube. The site feels tight, feels like it is tugging. He has no other complaints and is looking forward to testing with the Passy[place] valve so that he can speak. Physical Exam Vital signs: Last Vital Signs Temp 98.1 F 02/05/18 11:47 Pulse 95 H 02/05/18 11:47 Resp 19 02/05/18 11:47 BP 149/76 H 02/05/18 11:47 Pulse Ox 91 L 02/05/18 11:47 Intake & Output 02/03/18 02/04/18 02/05/18 02/06/18 06:59 06:59 06:59 06:59 Intake Total 1442 / 1442 1659 / 1659 580 / 580 Output Total 1375 / 1375 1100 / 1100 600 / 600 Balance 67 / 67 559 / 559 -20 / -20 Weight 71.2 kg 69.9 kg Narrative: GENERAL: AAOx3, no acute distress, cooperative with staff SKIN: Warm and dry. No rashes HEAD: Atruamtic, normocephalic. EYES: No scleral icterus. No injection or drainage. ENT: Moist mucous membranes, patent nares, no erythema of oropharynx. NECK: Supple, trachea midline. No JVD or lymphadenopathy. Normal thyroid. CARDIOVASCULAR: Regular rate and rhythm. No murmurs, gallops, or rubs. RESPIRATORY: Transmitted upper airway congestive sounds. No crackles or wheezes. No accessory muscle use. Tracheostomy in place with blow-by oxygen GASTROINTESTINAL: Abdomen soft, non-tender, nondistended, normal active bowel sounds, PEG tube in place, site appears tight, as if tugged from interior MUSCULOSKELETAL: No cyanosis, or edema. NEURO: CN II-XII grossly intact, no focal deficits, no slurring of speech Urinary Catheter Management Indwelling Urethral Catheter: Cath placed during this visit: yes, but has since been removed by the nurse Insertion date: 01/18/18 Insertion time: 09:10 Removal date: 01/28/18 Removal time: 06:00 Condom: Cath placed during this visit: yes Urethral indwelling: Yes Reason for continuing: Hourly intake/output Insertion date: 01/28/18 Insertion time: 06:00 Results Labs CBC & Chem 7: 02/04/18 05:17 02/04/18 05:17 Assessment and Plan Plan Severe sepsis secondary to aspiration pneumonia Prolonged stay in the ICU due to severe sepsis related to aspiration pneumonia secondary to IVDU s/p treatment with Zosyn, vancomycin prior S/p Flolan, vent secondary to ARDS Patient has tracheostomy in place Continuing blow-by oxygen and tracheostomy management with regular suction Requesting respiratory therapy to do trial of Passy-Arsalan valve Abdominal pain Pain in site of PEG tube, area appears clean PEG tube hub seems to be tugged from the interior, giving it a tight appearance Gastroenterology is reconsulted to have a look at the PEG tube site and adjust if necessary New infiltrate right lower lobe Infectious disease recommends ceftriaxone We will follow clinically Appreciate infectious disease Heroin overdose, IVDU By history patient claims his overdose was on his first use of heroin He was given Narcan in transit, vomited, causing aspiration pneumonia Patient has been here long enough that detox is not an issue We will plan to wean down on his methadone when patient is verbal Recommend discontinuation of heroin forever DVT Prophylaxis Lovenox Disposition Awaiting trial of Passy[place] valve Progress Note: Quality VTE Deep Vein Thrombosis/Pulmonary Embolism Present on Admission: No
--- NOTE | 2018-02-05 14:46 | P.DIET ---
Nutritional Evaluation Type of nutrition evaluation: follow-up Nutrition consult regarding: Tube Feeding Screening comments: CALORIE COUNTING from 02/05-02/08 initiated Subjective Subjective Comments: Spoke to pt's nurse and she reports the pt is not eating much. She is aware of the calorie count. Objective - Diagnosis Respiratory Failure s/p heroin overdose - Objective % IBW: 103 (IBW = 178#) Body Weight Used for Calculations: Actual (83 kg) Energy Needs - Lower Range (kCal/kg): 28 Energy Needs - Upper Range (kCal/kg): 32 Lower Limit kCal/kg (kCals): 2,327 Upper Limit kCal/kg (kCals): 2,659 Lower Limit Protein Factor (Grams per Kg): 1.2 Upper Limit Protein Factor (Grams per Kg): 1.6 Lower Protein Needs (Protein): 100 Upper Protein Needs (Protein): 133 Dietitian Reviewed in Medical Record: Current diet, Curent medications, Intake & Output, Labs, Medical history, Tube feeding Diet Order: Mechanical Soft Speech Therapy Recommendations: Yes (ST following) Assessment Assessment: Pt remains at high nutrition risk 2' to the need for TFing, poor po intake, wt loss and clinical status. TF is currently Jevity 1.5 @ 60 mls/hr from 10pm-6am and this provides 720 kcals and 31 gms protein. Calorie counts initiated and will run from 02/05-02/08. Recommend Jevity 1.5 @ 65 mls/hr to provide 2340 kcals, 100 gms protein and 1186 mls of free water until calorie counts are completed. Beneprotein as ordered will provide 36 additional grams of protein. Labs, wts and clinical course reviewed. Wt loss to 69.9 kg noted. Performance Test Engineer's note states "concern for nutritional status". Please note that the pt has been significantly underfed since admission. Recommendations: Jevity 1.5 @ 65 mls/hr goal Beneprotein as ordered Calorie counts from 02/05-02/[address] recommendations to follow. Dietitian to Monitor: Lab values, Intake & Output, Tube feeding tolerance, Weight change, PO Intake, Diet advancement, Swallow recommendations, Medical course
--- NOTE | 2018-02-05 16:31 | P.PNGI ---
Subjective Interval history: Patient awake alert Complaining of pain at PEG tube site <Cee Saha - Last Filed: 02/05/18 19:00> Physical Exam Vital signs: Vital Signs 02/04/18 16:30 02/04/18 17:00 02/04/18 20:00 Temperature 97.8 F Pulse Rate 87 85 90 Respiratory Rate 30 H 31 H 18 Blood Pressure 128/85 Pulse Oximetry 93 L 92 L 95 02/04/18 20:28 02/05/18 00:00 02/05/18 08:00 Temperature 98.2 F 98 F Pulse Rate 102 H 84 Respiratory Rate 19 18 Blood Pressure 143/64 H 135/69 Pulse Oximetry 94 L 93 L 92 L 02/05/18 09:18 02/05/18 11:47 02/05/18 15:55 Temperature 98.1 F 98 F Pulse Rate 95 H Respiratory Rate 19 18 Blood Pressure 149/76 H 132/70 Pulse Oximetry 92 L 91 L 93 L Intake & Output 02/04/18 02/05/18 02/05/18 18:59 06:59 18:59 Intake Total 100 / 100 480 / 480 100 / 100 Output Total 600 / 600 Balance 100 / 100 -120 / -120 100 / 100 Intake: IV 100 / 100 100 / 100 Rocephin Inj 2,000 MG In NS Inj 100 / 100 100 / 100 100 ML @ 200 mls/hr IV.SIG Q24H [facility] Rx#:[id number] Oral 480 / 480 Output: Urine 600 / 600 Other: Date of Last Bowel Movement 02/03/18 - Constitutional no acute distress, chronically ill appearing - Routine HEENT Exam Head: Present: normocephalic - Routine Respiratory Exam Present: CTA bilaterally - Routine Cardiovascular Exam Present: RRR - Routine Abdominal Exam Present: soft, normoactive bowel sounds, ostomy. Absent: distended, guarding, firm Comments: bumper diaphragm loosened on patient abdomen - Routine Extremities Exam Absent: edema - Routine Skin Exam Present: dry, warm - Routine Neurological Exam Present: alert - Urinary Catheter Management Indwelling Urethral Catheter Cath placed during this visit: yes, but has since been removed by the nurse Reason for continuing: Decision to DC catheter Insertion date: 01/18/18 Insertion time: 09:10 Removal date: 01/28/18 Removal time: 06:00 Condom Cath placed during this visit: yes Urethral indwelling: Yes Reason for continuing: Hourly intake/output Insertion date: 01/28/18 Insertion time: 06:00 <Cee Saha - Last Filed: 02/05/18 19:00> Vital signs: Vital Signs 02/05/18 11:47 02/05/18 15:55 02/05/18 19:27 Temperature 98.1 F 98 F Pulse Rate 95 H Respiratory Rate 19 18 Blood Pressure 149/76 H 132/70 Pulse Oximetry 91 L 93 L 93 L 02/05/18 20:00 02/06/18 00:00 02/06/18 04:06 Temperature 97.7 F 97.9 F Pulse Rate 82 98 H Respiratory Rate 18 18 Blood Pressure 135/77 144/75 H Pulse Oximetry 95 96 94 L 02/06/18 08:00 Temperature 97.8 F Pulse Rate 92 H Respiratory Rate 17 Blood Pressure 132/84 Pulse Oximetry 97 Intake & Output 02/05/18 02/06/18 02/06/18 18:59 06:59 18:59 Intake Total 100 / 100 Output Total 2 / 2 500 / 500 Balance 98 / 98 -500 / -500 Weight 69.7 kg Intake: IV 100 / 100 Rocephin Inj 2,000 MG In NS Inj 100 / 100 100 ML @ 200 mls/hr IV.SIG Q24H [facility] Rx#:[id number] Output: Urine 2 / 2 500 / 500 - Urinary Catheter Management Indwelling Urethral Catheter Cath placed during this visit: no Condom Cath placed during this visit: no <Nitin Newman - Last Filed: 02/06/18 09:59> Results - Labs CBC & Chem 7: 02/04/18 05:17 02/04/18 05:17 <Cee Saha - Last Filed: 02/05/18 19:00> - Labs CBC & Chem 7: 02/04/18 05:17 02/04/18 05:17 <Nitin Newman - Last Filed: 02/06/18 09:59> Assessment and Plan - Plan This patient is a 37-year-old male who was brought to [place] emergency room post heroin overdose. Patient is now post placement of tracheostomy and is mechanically ventilated. Sinus tach in the 110's on playground monitor blood pressure 114/68 patient currently with 95-96% saturation. Propofol and fentanyl currently infusing. Patient has NG tube in place with Oxepa infusing at 20 mL's per hour as per dietary recommendation. Dignity shield in place with moderate amount of brown stool noted. Our service has been consulted to evaluate patient for PEG tube placement. 01/28/18 S/P EGD/PEG on 01/27/18 02/05/18 GI asked to see patient due to pain around peg tube site. Diaphragm adjusted and loosened. Patient acknowledges resolved pain. no drainage or redness noted Plan -tube feedings per recommendations -Flush tube every feeding -Dressing to PEG tube site to be placed over the diaphragm -GI will sign off -Supportive care This patient has been seen by myself and Dr. Newman and this note is written on his behalf - Attending Attestation Dr. Newman <Cee Saha - Last Filed: 02/05/18 19:00> - Attending Attestation Patient seen and examined. I agree with the assessment and recommendations above. <Nitin Newman - Last Filed: 02/06/18 09:59>
[2018-02-06] MEDS: Oral Hygiene Kit OROPHARYNG SCH ×5 (02:24→23:03)
[2018-02-06] MEDS: Methadone 10 MG Tablet PO SCH ×2 (02:24→14:47)
[2018-02-06] MEDS: Acetaminophen/Codeine 120/12 MG Elixir 5 ML UDC PO PRN ×3 (06:40→20:27)
[2018-02-06] MEDS: Chlorhexidine 0.12% Oral Kit 15 ML UDC OROPHARYNG SCH ×2 (09:22→20:29)
[2018-02-06] MEDS: Senna/Docusate Sodium 8.6/50 MG Tablet PO SCH ×2 (09:23→20:27)
[2018-02-06] MEDS: Beneprotein Powder Packet G-TUBE SCH ×3 (09:23→18:10)
[2018-02-06] MEDS: Famotidine PF Inj 20 MG/2 ML Vial IV.PUSH SCH ×2 (09:23→20:28)
[2018-02-06 14:05] LABS: Baso # (Auto) 0.1 th/mm3 (0.0-0.2); Baso % (Auto) 0.9 % (0.0-2.0); Eos # (Auto) 0.7 th/mm3 (0.0-0.4); Hematocrit 37.7 % (39.0-51.0); Hemoglobin 13.3 gm/dL (13.0-17.0); Lymph # (Auto) 2.1 th/mm3 (1.0-4.8); Lymph % (Auto) 12.5 % (9.0-44.0); Mean Corpuscular HGB Conc 35.3 % (32.0-36.0); Mean Corpuscular Hemoglobin 32.6 pg (27.0-34.0); Mean Corpuscular Volume 92.4 fL (80.0-100.0); Mean Platelet Volume 9.2 fL (7.0-11.0); Mono # (Auto) 1.8 th/mm3 (0.0-0.9); Mono % (Auto) 10.8 % (0.0-8.0); Neut # (Auto) 12.2 th/mm3 (1.8-7.7); Neut % (Auto) 71.8 % (16.0-70.0); Platelet Count 408 th/mm3 (150-450); Red Blood Count 4.08 mil/mm3 (4.50-5.90); Red Cell Distribution Width 13.5 % (11.6-17.2)
--- NOTE | 2018-02-06 14:42 | P.PNIM ---
Subjective Interval history: Nursing denies any acute changes overnight. Patient however reports coughing up some blood. Reports some coughing induced abdominal pain. Physical Exam Vital signs: Vital Signs 02/05/18 15:55 02/05/18 19:27 02/05/18 20:00 Temperature 98 F 97.7 F Pulse Rate 82 Respiratory Rate 18 18 Blood Pressure 132/70 135/77 Pulse Oximetry 93 L 93 L 95 02/06/18 00:00 02/06/18 04:06 02/06/18 08:00 Temperature 97.9 F 97.8 F Pulse Rate 98 H 92 H Respiratory Rate 18 17 Blood Pressure 144/75 H 132/84 Pulse Oximetry 96 94 L 97 02/06/18 12:40 Temperature Pulse Rate 98 H Respiratory Rate 22 Blood Pressure Pulse Oximetry Intake & Output 02/05/18 02/06/18 02/06/18 18:59 06:59 18:59 Intake Total 100 / 100 100 / 100 Output Total 2 / 2 500 / 500 Balance 98 / 98 -500 / -500 100 / 100 Weight 69.7 kg Intake: IV 100 / 100 100 / 100 Rocephin Inj 2,000 MG In NS Inj 100 / 100 100 / 100 100 ML @ 200 mls/hr IV.SIG Q24H [facility] Rx#:[id number] Output: Urine 2 / 2 500 / 500 Narrative: Coarse breath sounds bilaterally while on tracheostomy Heart sounds regular rate and rhythm Awake alert, no acute distress - Urinary Catheter Management Indwelling Urethral Catheter Cath placed during this visit: yes, but has since been removed by the nurse Reason for continuing: Decision to DC catheter Insertion date: 01/18/18 Insertion time: 09:10 Removal date: 01/28/18 Removal time: 06:00 Condom Cath placed during this visit: yes Urethral indwelling: Yes Reason for continuing: Hourly intake/output Insertion date: 01/28/18 Insertion time: 06:00 Results - Labs CBC & Chem 7: 02/06/18 13:36 02/04/18 05:17 Laboratory Results - last 24 hr 02/06/18 13:36 WBC 17.0 H RBC 4.08 L Hgb 13.3 Hct 37.7 L MCV 92.4 MCH 32.6 MCHC 35.3 RDW 13.5 Plt Count 408 MPV 9.2 Neut % (Auto) 71.8 H Lymph % (Auto) 12.5 [place] % (Auto) 10.8 H Eos % (Auto) 4.0 Baso % (Auto) 0.9 Neut # (Auto) 12.2 H Lymph # (Auto) 2.1 [place] # (Auto) 1.8 H Eos # (Auto) 0.7 H Baso # (Auto) 0.1 WBC Differential . Differential Comment Auto diff final Assessment and Plan - Plan 37-year-old white male admitted with acute respiratory failure and severe sepsis secondary to aspiration pneumonia secondary to heroin overdose. Required mechanical ventilation, was eventually extubated but needed a tracheostomy to be having undergone ARDS. Has completed treatment for aspiration pneumonia. Had a PEG tube placed. New infiltrate found in the right lower lobe, started on Rocephin per infectious disease. Tracheostomy -Continuing blow-by oxygen and tracheostomy management with regular suction -Requesting respiratory therapy to do trial of Passy-[place]sal[place] valve Abdominal pain -Pain in site of PEG tube, area appears clean -PEG tube hub seems to be tugged from the interior, giving it a tight appearance New infiltrate right lower lobe -MSSA based upon sputum, Rocephin Heroin overdose, IVDU -Patient has been here long enough that detox is not an issue -We will plan to wean down on his methadone when patient is verbal -Recommend discontinuation of heroin forever
[2018-02-07] MEDS: Methadone 10 MG Tablet PO SCH ×2 (03:31→14:27)
[2018-02-07] MEDS: Oral Hygiene Kit OROPHARYNG SCH ×2 (05:31→12:02)
[2018-02-07] MEDS: Famotidine PF Inj 20 MG/2 ML Vial IV.PUSH SCH ×2 (08:45→20:41)
[2018-02-07] MEDS: Senna/Docusate Sodium 8.6/50 MG Tablet PO SCH ×2 (08:45→20:42)
[2018-02-07] MEDS: Beneprotein Powder Packet G-TUBE SCH ×3 (08:46→17:16)
[2018-02-07] MEDS: Chlorhexidine 0.12% Oral Kit 15 ML UDC OROPHARYNG SCH (08:46)
[2018-02-07] MEDS: Acetaminophen/Codeine 120/12 MG Elixir 5 ML UDC PO PRN ×2 (08:52→21:18)
--- NOTE | 2018-02-07 17:40 | P.PNIM ---
Subjective Interval history: Nursing denies any acute changes overnight. Patient tolerated successful downsizing of tracheostomy from size 8 to size 6. He has now tolerated well having his trach capped. Denies coughing any further blood. Patient is very happy that he can talk and be much more audible now. Physical Exam Vital signs: Vital Signs 02/06/18 20:00 02/06/18 22:10 02/07/18 00:00 Temperature 98.2 F 98.1 F Pulse Rate 94 H 85 Respiratory Rate 17 17 Blood Pressure 132/86 141/79 H Pulse Oximetry 94 L 96 95 02/07/18 08:00 02/07/18 09:39 02/07/18 12:00 Temperature 97.9 F 97.7 F Pulse Rate 95 H 89 Respiratory Rate 19 17 Blood Pressure 158/75 H 126/76 Pulse Oximetry 95 95 95 02/07/18 12:25 Temperature Pulse Rate Respiratory Rate Blood Pressure Pulse Oximetry 97 Intake & Output 02/06/18 02/07/18 02/07/18 18:59 06:59 18:59 Intake Total 900 / 900 630 / 630 100 / 100 Output Total 600 / 600 801 / 801 Balance 300 / 300 -171 / -171 100 / 100 Weight 69 kg Intake: IV 100 / 100 100 / 100 Rocephin Inj 2,000 MG In NS Inj 100 / 100 100 / 100 100 ML @ 200 mls/hr IV.SIG Q24H [facility] Rx#:[id number] Oral 800 / 800 480 / 480 Tube Feeding 150 / 150 Output: Urine 600 / 600 800 / 800 Urine/Stool Mix 1 / 1 Other: # Bowel Movements 0 Narrative: Clear lungs bilaterally, unlabored breathing Trach site Heart sounds regular rate and rhythm Awake and alert, no lower extremity edema - Urinary Catheter Management Indwelling Urethral Catheter Cath placed during this visit: yes, but has since been removed by the nurse Reason for continuing: Decision to DC catheter Insertion date: 01/18/18 Insertion time: 09:10 Removal date: 01/28/18 Removal time: 06:00 Condom Cath placed during this visit: yes Urethral indwelling: Yes Reason for continuing: Hourly intake/output Insertion date: 01/28/18 Insertion time: 06:00 Results - Labs CBC & Chem 7: 02/06/18 13:36 02/04/18 05:17 Assessment and Plan - Plan 37-year-old white male admitted with acute respiratory failure and severe sepsis secondary to aspiration pneumonia secondary to heroin overdose. Required mechanical ventilation, was eventually extubated but needed a tracheostomy having undergone ARDS. Has completed treatment for aspiration pneumonia. Had a PEG tube placed. New infiltrate found in the right lower lobe , started on Rocephin per infectious disease. Tracheostomy -downsized, now capped, doing well -Consulting pulmonology for end-trach management Abdominal pain -Pain in site of PEG tube, area appears clean -PEG tube hub seems to be tugged from the interior, giving it a tight appearance 01/27 CXR infiltrate -MSSA based upon sputum, Rocephin for now per ID -stop abx if procalcitonin negative (ordered) Heroin overdose, IVDU -Discontinue methadone as the patient no longer once this
[2018-02-08] MEDS: Methadone 10 MG Tablet PO SCH ×2 (04:13→17:20)
[2018-02-08 07:13] LABS: Baso # (Auto) 0.1 th/mm3 (0.0-0.2); Baso % (Auto) 1.2 % (0.0-2.0); Eos # (Auto) 0.7 th/mm3 (0.0-0.4); Eos % (Auto) 6.3 % (0.0-4.0); Hematocrit 34.8 % (39.0-51.0); Lymph # (Auto) 2.3 th/mm3 (1.0-4.8); Lymph % (Auto) 19.4 % (9.0-44.0); Mean Corpuscular HGB Conc 34.5 % (32.0-36.0); Mean Corpuscular Hemoglobin 31.2 pg (27.0-34.0); Mean Corpuscular Volume 90.6 fL (80.0-100.0); Mean Platelet Volume 9.6 fL (7.0-11.0); Mono # (Auto) 1.7 th/mm3 (0.0-0.9); Mono % (Auto) 14.2 % (0.0-8.0); Neut # (Auto) 6.9 th/mm3 (1.8-7.7); Neut % (Auto) 58.9 % (16.0-70.0); Platelet Count 340 th/mm3 (150-450); Red Blood Count 3.84 mil/mm3 (4.50-5.90); Red Cell Distribution Width 13.7 % (11.6-17.2); White Blood Count 11.8 th/mm3 (4.0-11.0)
[2018-02-08] MEDS: Beneprotein Powder Packet G-TUBE SCH ×3 (08:55→17:20)
[2018-02-08] MEDS: Senna/Docusate Sodium 8.6/50 MG Tablet PO SCH ×2 (08:56→20:18)
[2018-02-08] MEDS: Famotidine PF Inj 20 MG/2 ML Vial IV.PUSH SCH ×2 (08:56→20:18)
--- NOTE | 2018-02-08 10:39 | MB ---
cc: Annalisa Barros MD DATE: 02/08/2018 REASON FOR CONSULTATION: Trach management. REFERRING PHYSICIAN: Dr. Eisenberg. HISTORY OF PRESENT ILLNESS: The patient is a 37-year-old male with a past medical history of polysubstance abuse who presented to [facility] on 01/05 with altered mental status secondary to polysubstance abuse. His urine drug screen was positive for cocaine, cannabinoids, and opiates. The patient required intubation and mechanical ventilation. He had a CT scan of the chest on 01/05 which showed bilateral pulmonary opacities in the lower lobes and elevation of the right hemidiaphragm. His ICU course complicated by ARDS, aspiration pneumonia, and severe sepsis. His sputum culture from 02/01 growing MSSA. The patient underwent a percutaneous tracheostomy on 01/27. Echocardiogram was performed, which showed mild LV dysfunction with ejection fraction of 45%-50%. He was eventually weaned off the ventilator and his tracheostomy was downsized to a #6 yesterday. Pulmonary medicine was consulted for trach management. When seen, the patient was ambulating in hallway without any oxygen. He denies any chest pain or shortness of breath. A repeat CT chest was obtained on 01/25, which showed small bilateral pleural effusion, overall improved, and improving bilateral airspace consolidation in the lungs. His last chest x-ray 01/27 showed atelectasis versus consolidation at the lung bases and elevation of the right hemidiaphragm. PAST MEDICAL HISTORY: None. PAST SURGICAL HISTORY: Status post tracheostomy on 01/27. No other history of surgeries. SOCIAL HISTORY: Active smoker, history of polysubstance abuse. FAMILY HISTORY: Noncontributing to present illness. ACTIVE MEDICATIONS: Include Rocephin, Lovenox, Pepcid, multivitamins. REVIEW OF SYSTEMS: As per HPI. The rest of the review of systems is unremarkable. PHYSICAL EXAMINATION: GENERAL: A 37-year-old male in no acute respiratory distress on room air oxygen. VITAL SIGNS: Temperature 97.7, pulse 92, respiratory rate 17, blood pressure 135/82, saturation 95% on room air. HEENT: Atraumatic, normocephalic. Pupils are equal, round, reactive to light and accommodation. Extraocular muscles intact. Conjunctivae pink. Nonicteric sclerae. Oral mucosa within normal. NECK: Supple. No JVD, adenopathy, or thyromegaly. Trachea in midline. Tracheostomy in place. CARDIOVASCULAR: Regular rate and rhythm. Normal S1, S2. No murmurs, rubs, or gallops noted. PULMONARY: Bilateral equal air entry. No rales or wheezing. ABDOMEN: Soft, nontender. No distention. Positive bowel sounds. EXTREMITIES: No cyanosis, clubbing, or edema. NEUROLOGIC: No focal sensory deficit. LABORATORY DATA: Showed a WBC 11.8, hemoglobin 12, hematocrit 34, platelet count of 340. Sodium 136, potassium 4.3, chloride 99, CO2 of 29, BUN 18, creatinine 0.67, glucose of 101. RADIOGRAPHIC STUDIES: Chest x-ray 01/27 showed atelectasis versus consolidation at the lung bases, elevation of right hemidiaphragm. ASSESSMENT: 1. Chronic respiratory failure, status post tracheostomy on 01/27. 2. Methicillin-sensitive Staphylococcus aureus pneumonia. 3. Status post acute respiratory distress syndrome. 4. Leukocytosis, trending down. 5. Elevation right hemidiaphragm. 6. Polysubstance abuse. 7. Anemia. RECOMMENDATIONS: 1. Oxygen p.r.n. to maintain sats above 92%. 2. Bronchodilators in the form of DuoNeb q.6 plus q.2 p.r.n. for shortness of breath. 3. His tracheostomy was downsized to #6 yesterday. We will obtain a chest x-ray. 4. Pulmonary toilet and tracheostomy care. 5. Incentive spirometry q.1 hour while awake. 6. Continue with antibiotics. He is currently on Rocephin 2 grams daily. Infectious disease is following. Monitor for signs of infection, which include fever and WBC. 7. Gastrointestinal and deep venous thrombosis prophylaxis. The patient is on Pepcid and Lovenox subcutaneously daily respectively. 8. Continue other medical management per primary team. 9. Further recommendations will be based on hospital course. Thank you for this consultation and allowing us to participate in this patient's care. MD ZONIA Dixon/ed , 10:08 AM , 10:20 AM
--- NOTE | 2018-02-08 10:59 | XR ---
EXAM DATE: 02/08/2018 10:56 AM EST AGE/SEX: 37 years / Male INDICATIONS: Evaluate post trach change. CLINICAL DATA: This is the patient's subsequent encounter. Patient reports that signs and symptoms h ave been present for 3 days and indicates a pain score of 0/10. MEDICAL/SURGICAL HISTORY: . IVDU. Smoker. . Central line. COMPARISON: C, CHEST 1V SINGLE AP, 01/27/2018. . FINDINGS: There is a tracheostomy tube in place. There is no pneumothorax. The tracheostomy tube appears to be in good position. There continues to be a parenchymal infiltrate in the right lung base which is not significant change compared to the prior examination. The left lung remains grossly clear. The heart size is stable. The bony structures are stable. CONCLUSION: 1. The tracheostomy tube appears to be in good position. 2. No evidence of pneumothorax. 3. No change in the parenchymal infiltrate in the right lung base. Electronically signed by: Benjamín Clifton MD Board Certified Radiologist 02/08/2018 10:58 AM EST
--- NOTE | 2018-02-08 14:44 | P.DIET ---
Nutritional Evaluation Type of nutrition evaluation: follow-up Nutrition consult regarding: Tube Feeding Nutrition screening: [facility] [place] Screening comments: CALORIE COUNTING from 02/05-02/08 initiated Subjective Subjective Comments: Pt talking on the phone when calorie count collected. Pt paused for a moment to say he would drink Ensure. Objective - Diagnosis Respiratory Failure s/p heroin overdose - Objective % IBW: 103 (IBW = 178#) Body Weight Used for Calculations: Actual (83 kg) Energy Needs - Lower Range (kCal/kg): 28 Energy Needs - Upper Range (kCal/kg): 32 Lower Limit kCal/kg (kCals): 2,327 Upper Limit kCal/kg (kCals): 2,659 Lower Limit Protein Factor (Grams per Kg): 1.2 Upper Limit Protein Factor (Grams per Kg): 1.6 Lower Protein Needs (Protein): 100 Upper Protein Needs (Protein): 133 Dietitian Reviewed in Medical Record: Current diet, Curent medications, Intake & Output, Labs, Medical history, Tube feeding Diet Order: TF' and Mechanical Soft Speech Therapy Recommendations: Yes (02/05/19 [facility] Soft Thin Liquids) Objective Comments: 01/27/18 Peg tube placement 01/27/18 Trach placement 02/07/18 Trach down sized to #6 LBM 02/07/18 Feeding - Current Tube Feeding Tube Feeding Product: Jevity 1.5 Tube Feeding Rate: 60 Current kCals Provided by Tube Feedin Current Protein Provided by Tube Feeding (gPRO): 31 Current Free H2O Provided (m/l): 365 - kCal Count Day 1 kCal Intake: 220 Day 1 Protein Intake: 25 Day 2 kCal Intake: 30 Day 2 Protein Intake: 1 Day 3 kCal Intake: 565 Day 3 Protein Intake: 41 kCal Comments: Day#1: 3-meal slips collected and documented Day#2: 1-meal slip collected and documented Day#3: 2-meal slips collected and documented Assessment Assessment: Pt remains at high nutrition risk r/t the need for TFing, poor po intake, wt loss and clinical status. Calorie Count 02/05 through 02/08 w/Inadequate po intake. Pt averaged 272 kcals and 34g protein daily. Rec TF'ing w/Jevity 1.5 w/ increase goal rate to 65 mls/hr 6pm to 6am to offer 1170 kcal, 50g protein and 593ml free water. Rec a bolus feeding w/Jevity 1.5 of 360ml for meals w/LESS than 50% po intake. Each bolus feeding will offer 533 kcal, 23g protein and 270ml free water. Send Ensure Enlive TID(= 350 kcal, 20g protein per serving). Continue Beneprotein as ordered will provide 36 additional grams of protein. Labs, wts and clinical course reviewed. Wt loss to 69 kg noted. Assistant [employer]'s note states "concern for nutritional status". Please note that the pt has been significantly underfed since admission. Recommendations: 1. Calorie Count 02/05 through 02/08 w/Inadequate po intake 2. Rec TF'ing w/Jevity 1.5 w/increase goal rate to 65 mls/hr 6pm to 6am 3. Rec a bolus feeding w/Jevity 1.5 of 360ml for meals w/LESS than 50% po intake 4. Send Ensure Enlive TID 5. Continue Beneprotein as ordered Dietitian to Monitor: Lab values, Supplement acceptance, Intake & Output, Tube feeding tolerance, Weight change, PO Intake, Swallow recommendations, Medical course
--- NOTE | 2018-02-08 15:02 | P.PNID ---
Subjective Remarks: Patient is on room air. Sleepy and not very interactive. Afebrile. WBC is decreasing Sputum culture has staph aureus. 37-year-old white male who was brought in to the emergency department when he was found down by a friend. The patient was noted to have overdosed on drugs. He was noted to have used IV heroin. In the emergency department, his temperature was normal. Chest x-ray was performed and showed an elevation of the right hemidiaphragm and right lower lobe consolidation versus atelectasis and small to moderate-sized right pleural effusion. Blood cultures on admission had Staph coagulase negative. Antibiotics: Ceftriaxone. Past Medical History: Intravenous drug abuse. Allergies/Adverse Reactions: Allergies No Allergy Information Available Allergy (Verified 01/20/18 01:00) UTO Objective Vital Signs 02/07/18 16:00 02/07/18 17:55 02/07/18 20:00 Temperature 97.7 F 97.8 F Pulse Rate 94 H 74 Respiratory Rate 18 16 Blood Pressure 132/74 102/61 Pulse Oximetry 95 97 94 L 02/07/18 23:26 02/07/18 23:37 02/08/18 08:00 Temperature 97.0 F L 97.7 F Pulse Rate 102 H 92 H Respiratory Rate 20 18 17 Blood Pressure 138/82 135/82 Pulse Oximetry 96 91 L 02/08/18 08:14 02/08/18 11:12 02/08/18 12:00 Temperature 97.1 F L Pulse Rate 101 H 105 H Respiratory Rate 14 19 Blood Pressure 114/82 Pulse Oximetry 95 94 L Intake & Output 02/07/18 02/08/18 02/08/18 18:59 06:59 18:59 Intake Total 800 / 800 1290 / 1290 Output Total 1000 / 1000 Balance 800 / 800 290 / 290 Weight 69 kg Intake: IV 100 / 100 Rocephin Inj 2,000 MG In NS Inj 100 / 100 100 ML @ 200 mls/hr IV.SIG Q24H VU Rx#:[id number] Oral 700 / 700 780 / 780 Tube Feeding 310 / 310 Tube Irrigant 200 / 200 Output: Urine 1000 / 1000 Other: # Voids 5 Date of Last Bowel Movement 02/07/18 # Bowel Movements 1 1 Lab - Hematology Results 02/08/18 06:34 WBC 11.8 H RBC 3.84 L Hgb 12.0 L Hct 34.8 L MCV 90.6 MCH 31.2 MCHC 34.5 RDW 13.7 Plt Count 340 MPV 9.6 Neut % (Auto) 58.9 Lymph % (Auto) 19.4 [place] % (Auto) 14.2 H Eos % (Auto) 6.3 H Baso % (Auto) 1.2 Neut # (Auto) 6.9 Lymph # (Auto) 2.3 [place] # (Auto) 1.7 H Eos # (Auto) 0.7 H Baso # (Auto) 0.1 WBC Differential . Differential Comment Auto diff final Lab - Chemistry Results 02/07/18 19:48 Procalcitonin 0.05 Imaging: ITS Impressions Head CT 01/05/18 05:01 CONCLUSION: 1. No acute intracranial findings. 2. Air-fluid levels in the right maxillary and sphenoid sinuses suggesting possible acute sinusitis versus air-fluid levels related to intubation.. . Abdomen X-Ray 01/20/18 05:00 CONCLUSION: Feeding tube distal tip is either in the first portion of the duodenum or pylorus region of the stomach. Venous Doppler Study 01/22/18 00:00 CONCLUSION: No venous thrombosis is identified within either upper extremity. Chest CT 01/25/18 00:00 CONCLUSION: 1. Small bilateral pleural effusions overall improved from January 08. 2. Improving bilateral airspace consolidation in the lungs. 3. Endotracheal tube, nasogastric tube and feeding tube and right central line in good position. Chest X-Ray 02/08/18 09:54 CONCLUSION: 1. The tracheostomy tube appears to be in good position. 2. No evidence of pneumothorax. 3. No change in the parenchymal infiltrate in the right lung base. Physical Exam: GENERAL: No acute distress. HEENT: Pupils reactive. Extraocular movements grossly intact. Oropharyngeal mucosa is slightly dry. LUNGS: Decreased breath sounds. HEART: Regular S1, S2, without murmurs, rubs or gallops. ABDOMEN: soft, not tender, positive bowel sounds. EXTREMITIES: No clubbing or cyanosis or edema. SKIN: No diffuse rash. NEUROLOGIC: No gross focal finding PSYCHIATRIC: Calm Assessment and Plan - Plan IMPRESSION: 1. Pneumonia. 2. Bacteremia due to Staphylococcus coag negative. Repeat blood cultures have no growth. This possibly could be contamination. 3. Acute respiratory failure. 4. Intravenous drug use. 5. Probable aspiration. Chest x-ray shows improved aeration. ? R UE DVT Worsening leukocytosis. We will WBC improving. RECOMMENDATIONS: Give ceftriaxone until dose on 02/10. Monitor temperature. Monitor white blood cell count. Monitor clinical status.
--- NOTE | 2018-02-08 15:40 | P.PNIM ---
Subjective Interval history: Nursing denies any acute changes overnight. Patient himself denies having any complaints. Does not like the hospital food. Denies coughing any blood. Physical Exam Vital signs: Vital Signs 02/07/18 16:00 02/07/18 17:55 02/07/18 20:00 Temperature 97.7 F 97.8 F Pulse Rate 94 H 74 Respiratory Rate 18 16 Blood Pressure 132/74 102/61 Pulse Oximetry 95 97 94 L 02/07/18 23:26 02/07/18 23:37 02/08/18 08:00 Temperature 97.0 F L 97.7 F Pulse Rate 102 H 92 H Respiratory Rate 20 18 17 Blood Pressure 138/82 135/82 Pulse Oximetry 96 91 L 02/08/18 08:14 02/08/18 11:12 02/08/18 12:00 Temperature 97.1 F L Pulse Rate 101 H 105 H Respiratory Rate 14 19 Blood Pressure 114/82 Pulse Oximetry 95 94 L Intake & Output 02/07/18 02/08/18 02/08/18 18:59 06:59 18:59 Intake Total 800 / 800 1290 / 1290 Output Total 1000 / 1000 Balance 800 / 800 290 / 290 Weight 69 kg Intake: IV 100 / 100 Rocephin Inj 2,000 MG In NS Inj 100 / 100 100 ML @ 200 mls/hr IV.SIG Q24H VU Rx#:[id number] Oral 700 / 700 780 / 780 Tube Feeding 310 / 310 Tube Irrigant 200 / 200 Output: Urine 1000 / 1000 Other: # Voids 5 Date of Last Bowel Movement 02/07/18 # Bowel Movements 1 1 Narrative: Clear lungs bilaterally, unlabored breathing Resting on the sofa, sits up with no difficulty Heart sounds regular rate rhythm, no murmurs No lower cavity edema Tracheostomy capped and in place - Urinary Catheter Management Indwelling Urethral Catheter Cath placed during this visit: yes, but has since been removed by the nurse Reason for continuing: Decision to DC catheter Insertion date: 01/18/18 Insertion time: 09:10 Removal date: 01/28/18 Removal time: 06:00 Condom Cath placed during this visit: yes Urethral indwelling: Yes Reason for continuing: Hourly intake/output Insertion date: 01/28/18 Insertion time: 06:00 Results - Labs CBC & Chem 7: 02/08/18 06:34 02/04/18 05:17 Laboratory Results - last 24 hr 02/07/18 02/08/18 19:48 06:34 WBC 11.8 H RBC 3.84 L Hgb 12.0 L Hct 34.8 L MCV 90.6 MCH 31.2 MCHC 34.5 RDW 13.7 Plt Count 340 MPV 9.6 Neut % (Auto) 58.9 Lymph % (Auto) 19.4 [place] % (Auto) 14.2 H Eos % (Auto) 6.3 H Baso % (Auto) 1.2 Neut # (Auto) 6.9 Lymph # (Auto) 2.3 [place] # (Auto) 1.7 H Eos # (Auto) 0.7 H Baso # (Auto) 0.1 WBC Differential . Differential Comment Auto diff final Procalcitonin 0.05 - Imaging Impressions Chest X-Ray 02/08/18 09:54 CONCLUSION: 1. The tracheostomy tube appears to be in good position. 2. No evidence of pneumothorax. 3. No change in the parenchymal infiltrate in the right lung base. Assessment and Plan - Plan 37-year-old white male admitted with acute respiratory failure and severe sepsis secondary to aspiration pneumonia secondary to heroin overdose. Required mechanical ventilation, was eventually extubated but needed a tracheostomy having undergone ARDS. Has completed treatment for aspiration pneumonia. Had a PEG tube placed. New infiltrate found in the right lower lobe , started on Rocephin per infectious disease. Tracheostomy -now capped, doing well -Pulmonology following, repeat a chest x-ray shows same infiltrate is performed with no worsening Abdominal pain -Pain in site of PEG tube, area appears clean, now resolved 01/27 CXR infiltrate -MSSA based upon sputum, Rocephin for now per ID until 02/10 Heroin overdose, IVDU -Patient no longer desiring or requiring opiates at this time.
[2018-02-09] MEDS: Methadone 10 MG Tablet PO SCH ×2 (03:48→15:34)
--- NOTE | 2018-02-09 09:20 | P.PNPL ---
Subjective Interval history: Patient is lying in bed in NAD. Afebrile. On room air oxygen. Physical Exam Vital signs: Vital Signs 02/08/18 11:12 02/08/18 12:00 02/08/18 15:53 Temperature 97.1 F L Pulse Rate 101 H 105 H 98 H Respiratory Rate 14 19 14 Blood Pressure 114/82 Pulse Oximetry 94 L 02/08/18 16:00 02/08/18 20:00 02/08/18 21:03 Temperature 98.0 F 97.7 F Pulse Rate 98 H 103 H 89 Respiratory Rate 19 16 20 Blood Pressure 127/88 124/74 Pulse Oximetry 93 L 96 95 02/09/18 00:00 02/09/18 03:25 02/09/18 04:00 Temperature 97.9 F Pulse Rate 90 85 Respiratory Rate 18 18 17 Blood Pressure 134/76 Pulse Oximetry 96 02/09/18 09:11 Temperature Pulse Rate 92 H Respiratory Rate 16 Blood Pressure Pulse Oximetry 94 L Intake & Output 02/08/18 02/09/18 02/09/18 18:59 06:59 18:59 Intake Total 1600 / 1600 1290 / 1290 Output Total 800 / 800 Balance 1600 / 1600 490 / 490 Weight 69 kg Intake: IV 100 / 100 Rocephin Inj 2,000 MG In NS Inj 100 / 100 100 ML @ 200 mls/hr IV.SIG Q24H VU Rx#:[id number] Oral 1500 / 1500 780 / 780 Tube Feeding 480 / 480 Tube Irrigant 30 / 30 Output: Urine 800 / 800 Other: # Voids 3 - Constitutional no acute distress - Routine HEENT Exam Head: Present: normocephalic, atraumatic Eye: Present: EOMI, PERRL, conjunctivae pink ENT: Present: mucous membranes moist - Routine Neck Exam Present: supple, full ROM, trachea midline - Routine Respiratory Exam Present: CTA bilaterally - Routine Cardiovascular Exam Present: RRR, S1, S2 - Routine Abdominal Exam Present: soft, normoactive bowel sounds - Routine Extremities Exam Present: full ROM, pulses intact, normal capillary refill - Routine Skin Exam Present: intact, dry - Routine Neurological Exam Present: alert, oriented X3, CN II-XII intact - Urinary Catheter Management Indwelling Urethral Catheter Cath placed during this visit: yes, but has since been removed by the nurse Reason for continuing: Decision to DC catheter Insertion date: 01/18/18 Insertion time: 09:10 Removal date: 01/28/18 Removal time: 06:00 Condom Cath placed during this visit: yes Urethral indwelling: Yes Reason for continuing: Hourly intake/output Insertion date: 01/28/18 Insertion time: 06:00 Assessment and Plan - Assessment (1) Heroin overdose Code(s): T40.1X1A - Poisoning by heroin, accidental (unintentional), initial encounter Status: Acute (2) Polysubstance abuse Code(s): F19.10 - Other psychoactive substance abuse, uncomplicated Status: Chronic (3) Cocaine abuse Code(s): F14.10 - Cocaine abuse, uncomplicated Status: Acute (4) Elevated ETOH level Code(s): R78.0 - Finding of alcohol in blood Status: Acute (5) Marijuana abuse Code(s): F12.10 - Cannabis abuse, uncomplicated Status: Acute (6) TORREY (acute kidney injury) Code(s): N17.9 - Acute kidney failure, unspecified Status: Acute (7) Severe sepsis Code(s): A41.9 - Sepsis, unspecified organism; R65.20 - Severe sepsis without septic shock Status: Acute (8) Acute respiratory failure with hypoxia Code(s): J96.01 - Acute respiratory failure with hypoxia Status: Acute (9) Aspiration pneumonia Code(s): J69.0 - Pneumonitis due to inhalation of food and vomit Status: Acute (10) Vomiting Code(s): R11.10 - Vomiting, unspecified Status: Acute (11) Hyperglycemia Code(s): R73.9 - Hyperglycemia, unspecified Status: Acute (12) Protein-calorie malnutrition, moderate Code(s): E44.0 - Moderate protein-calorie malnutrition Status: Acute - Plan 1. Chronic respiratory failure, status post tracheostomy on 01/27. 2. MSSA pneumonia. 3. s/p ARDS 4. Leukocytosis, trending down. 5. Elevation right hemidiaphragm. 6. Polysubstance abuse. 7. Anemia. Plan Oxygen p.r.n. to maintain sats above 92%. Bronchodilators Trach was downsized to #6, patient is on room air oxygen trach can likely be decannulated. Pulmonary toilet and trach care. Incentive spirometry CXR 02/08: No change in the parenchymal infiltrate in the right lung base. Trach in place. Continue abx per ID- on Rocephin 2 grams daily. Monitor for signs of infection( fever and WBC). GI and DVT prophylaxis. on Pepcid and Lovenox subcu daily respectively.
[2018-02-09] MEDS: Senna/Docusate Sodium 8.6/50 MG Tablet PO SCH ×2 (10:53→21:56)
[2018-02-09] MEDS: Famotidine PF Inj 20 MG/2 ML Vial IV.PUSH SCH ×2 (10:53→21:53)
[2018-02-09] MEDS: Beneprotein Powder Packet G-TUBE SCH ×3 (10:54→20:11)
--- NOTE | 2018-02-09 14:52 | P.PNIM ---
Subjective Interval history: Nursing denies any acute changes overnight. Patient himself says he feels great , says he has walked around the nursing station multiple times. Wanting to go home. Physical Exam Vital signs: Vital Signs 02/08/18 15:53 02/08/18 16:00 02/08/18 20:00 Temperature 98.0 F 97.7 F Pulse Rate 98 H 98 H 103 H Respiratory Rate 14 19 16 Blood Pressure 127/88 124/74 Pulse Oximetry 93 L 96 02/08/18 21:03 02/09/18 00:00 02/09/18 03:25 Temperature 97.9 F Pulse Rate 89 90 85 Respiratory Rate 20 18 18 Blood Pressure 134/76 Pulse Oximetry 95 96 02/09/18 04:00 02/09/18 08:00 02/09/18 09:11 Temperature 97.9 F Pulse Rate 102 H 92 H Respiratory Rate 17 16 16 Blood Pressure 146/86 H Pulse Oximetry 98 94 L 02/09/18 12:00 Temperature 98.0 F Pulse Rate 89 Respiratory Rate 16 Blood Pressure 134/82 Pulse Oximetry 96 Intake & Output 02/08/18 02/09/18 02/09/18 18:59 06:59 18:59 Intake Total 1600 / 1600 1290 / 1290 100 / 100 Output Total 800 / 800 Balance 1600 / 1600 490 / 490 100 / 100 Weight 69 kg Intake: IV 100 / 100 100 / 100 Rocephin Inj 2,000 MG In NS Inj 100 / 100 100 / 100 100 ML @ 200 mls/hr IV.SIG Q24H COUNT INCLUDES THE [facility] Rx#:[id number] Oral 1500 / 1500 780 / 780 Tube Feeding 480 / 480 Tube Irrigant 30 / 30 Output: Urine 800 / 800 Other: # Voids 3 Narrative: Clear lungs bilaterally, unlabored breathing Tracheostomy capped, in place Heart sounds regular rate and rhythm Sitting up in chair, awake, alert, no acute distress - Urinary Catheter Management Indwelling Urethral Catheter Cath placed during this visit: yes, but has since been removed by the nurse Reason for continuing: Decision to DC catheter Insertion date: 01/18/18 Insertion time: 09:10 Removal date: 01/28/18 Removal time: 06:00 Condom Cath placed during this visit: yes Urethral indwelling: Yes Reason for continuing: Hourly intake/output Insertion date: 01/28/18 Insertion time: 06:00 Results - Labs CBC & Chem 7: 02/08/18 06:34 02/04/18 05:17 Assessment and Plan - Plan 37-year-old white male admitted with acute respiratory failure and severe sepsis secondary to aspiration pneumonia secondary to heroin overdose. Required mechanical ventilation, was eventually extubated but needed a tracheostomy having undergone ARDS. Has completed treatment for aspiration pneumonia. Had a PEG tube placed. New infiltrate found in the right lower lobe , started on Rocephin per infectious disease. Tracheostomy -now capped, doing well -Pulmonology following, repeat a chest x-ray shows same infiltrate is performed with no worsening -will decannulate today, observe until alec 01/27 CXR infiltrate -MSSA based upon sputum, Rocephin for now per ID until 02/10 Heroin overdose, IVDU -Patient no longer desiring or requiring opiates at this time.
[2018-02-10] MEDS: Methadone 10 MG Tablet PO SCH ×2 (03:01→14:09)
[2018-02-10] MEDS: Senna/Docusate Sodium 8.6/50 MG Tablet PO SCH (08:51)
[2018-02-10] MEDS: Famotidine PF Inj 20 MG/2 ML Vial IV.PUSH SCH (08:51)
[2018-02-10] MEDS: Beneprotein Powder Packet G-TUBE SCH ×3 (08:52→12:10)
--- NOTE | 2018-02-10 09:02 | P.PNPL ---
Subjective Interval history: Patient denies any SOB or CP s/o trach decannulation yesterday. On room air oxygen. Physical Exam Vital signs: Vital Signs 02/09/18 09:11 02/09/18 12:00 02/09/18 16:00 Temperature 98.0 F 97.9 F Pulse Rate 92 H 89 91 H Respiratory Rate 16 16 18 Blood Pressure 134/82 136/83 Pulse Oximetry 94 L 96 96 02/09/18 16:17 02/09/18 20:00 02/10/18 00:00 Temperature 97.7 F 97.7 F Pulse Rate 90 87 87 Respiratory Rate 18 15 15 Blood Pressure 124/68 124/68 Pulse Oximetry 91 L 91 L 02/10/18 08:31 Temperature Pulse Rate 103 H Respiratory Rate 18 Blood Pressure Pulse Oximetry 97 Intake & Output 02/09/18 02/10/18 02/10/18 18:59 06:59 18:59 Intake Total 2700 / 2700 1343 / 1343 Balance 2700 / 2700 1343 / 1343 Weight 66.7 kg Intake: IV 100 / 100 Rocephin Inj 2,000 MG In NS Inj 100 / 100 100 ML @ 200 mls/hr IV.SIG Q24H VU Rx#:[id number] Oral 2600 / 2600 840 / 840 Tube Feeding 503 / 503 Other: # Voids 5 2 Date of Last Bowel Movement 02/09/18 02/09/18 # Bowel Movements 1 - Constitutional no acute distress - Routine HEENT Exam Head: Present: normocephalic, atraumatic Eye: Present: EOMI, PERRL, normal accommodation, conjunctivae pink ENT: Present: mucous membranes moist - Routine Neck Exam Present: supple, full ROM, trachea midline - Routine Respiratory Exam Present: CTA bilaterally - Routine Cardiovascular Exam Present: RRR, S1, S2 - Routine Abdominal Exam Present: soft, normoactive bowel sounds - Routine Extremities Exam Present: pulses intact - Routine Skin Exam Present: intact, dry - Routine Neurological Exam Present: alert, oriented X3, CN II-XII intact - Urinary Catheter Management Indwelling Urethral Catheter Cath placed during this visit: yes, but has since been removed by the nurse Reason for continuing: Decision to DC catheter Insertion date: 01/18/18 Insertion time: 09:10 Removal date: 01/28/18 Removal time: 06:00 Condom Cath placed during this visit: yes Urethral indwelling: Yes Reason for continuing: Hourly intake/output Insertion date: 01/28/18 Insertion time: 06:00 Assessment and Plan - Assessment (1) Heroin overdose Code(s): T40.1X1A - Poisoning by heroin, accidental (unintentional), initial encounter Status: Acute (2) Polysubstance abuse Code(s): F19.10 - Other psychoactive substance abuse, uncomplicated Status: Chronic (3) Cocaine abuse Code(s): F14.10 - Cocaine abuse, uncomplicated Status: Acute (4) Elevated ETOH level Code(s): R78.0 - Finding of alcohol in blood Status: Acute (5) Marijuana abuse Code(s): F12.10 - Cannabis abuse, uncomplicated Status: Acute (6) TORREY (acute kidney injury) Code(s): N17.9 - Acute kidney failure, unspecified Status: Acute (7) Severe sepsis Code(s): A41.9 - Sepsis, unspecified organism; R65.20 - Severe sepsis without septic shock Status: Acute (8) Acute respiratory failure with hypoxia Code(s): J96.01 - Acute respiratory failure with hypoxia Status: Acute (9) Aspiration pneumonia Code(s): J69.0 - Pneumonitis due to inhalation of food and vomit Status: Acute (10) Vomiting Code(s): R11.10 - Vomiting, unspecified Status: Acute (11) Hyperglycemia Code(s): R73.9 - Hyperglycemia, unspecified Status: Acute (12) Protein-calorie malnutrition, moderate Code(s): E44.0 - Moderate protein-calorie malnutrition Status: Acute - Plan 1. Chronic respiratory failure, status post tracheostomy on 01/27. 2. MSSA pneumonia. 3. s/p ARDS 4. Leukocytosis, trending down. 5. Elevation right hemidiaphragm. 6. Polysubstance abuse. 7. Anemia. Plan Oxygen p.r.n. to maintain sats above 92%. Bronchodilators, Incentive spirometry s/p trach decannulation 02/09. CXR today bibasilar atelectasis CXR 02/08: No change in the parenchymal infiltrate in the right lung base. Trach in place. Continue abx per ID- on Rocephin 2 grams daily. Monitor for signs of infection( fever and WBC). GI and DVT prophylaxis. on Pepcid and Lovenox subcu daily respectively. Ok for discharge from pulm standpoint follow up with Dr. Brown in 1 week
--- NOTE | 2018-02-10 09:44 | XR ---
EXAM DATE: 02/10/2018 9:40 AM EST AGE/SEX: 37 years / Male INDICATIONS: Status post trachea decannulation. CLINICAL DATA: This is the patient's initial encounter. Patient reports that signs and symptoms have been present for 1 day and indicates a pain score of 0/10. MEDICAL/SURGICAL HISTORY: None. None. COMPAR[place] [facility] [place], [place]. . FINDINGS: There is persistent elevation of the right hemidiaphragm. Right basilar atelectasis and/or infiltrate is noted. The heart is stable. The tracheostomy tube has been removed. Very minimal discoid atelecta sis is noted within left lung base. No pulmonary edema is noted. CONCLUSION: 1. Right basilar atelectasis and/or infiltrate. 2. Persistent elevation of the right hemidiaphragm. 3. Very minimal discoid atelectasis is noted within left lung base. Electronically signed by: Behzad Banks MD Board Certified Radiologist 02/10/2018 9:42 AM EST
--- NOTE | 2018-02-10 11:03 | P.PNID ---
Subjective Remarks: Patient is on room air. Sitting in bedside chair. Alert and awake. Comminuted fluently. Says he feels okay. No complaints. Afebrile. 37-year-old white male who was brought in to the emergency department when he was found down by a friend. The patient was noted to have overdosed on drugs. He was noted to have used IV heroin. In the emergency department, his temperature was normal. Chest x-ray was performed and showed an elevation of the right hemidiaphragm and right lower lobe consolidation versus atelectasis and small to moderate-sized right pleural effusion. Blood cultures on admission had Staph coagulase negative. Antibiotics: Ceftriaxone. Past Medical History: Intravenous drug abuse. Allergies/Adverse Reactions: Allergies No Allergy Information Available Allergy (Verified 01/20/18 01:00) UTO Objective Vital Signs 02/09/18 12:00 02/09/18 16:00 02/09/18 16:17 Temperature 98.0 F 97.9 F Pulse Rate 89 91 H 90 Respiratory Rate 16 18 18 Blood Pressure 134/82 136/83 Pulse Oximetry 96 96 02/09/18 20:00 02/10/18 00:00 02/10/18 08:00 Temperature 97.7 F 97.7 F 97.8 F Pulse Rate 87 87 88 Respiratory Rate 15 15 18 Blood Pressure 124/68 124/68 123/75 Pulse Oximetry 91 L 91 L 98 02/10/18 08:31 Temperature Pulse Rate 103 H Respiratory Rate 18 Blood Pressure Pulse Oximetry 97 Intake & Output 02/09/18 02/10/18 02/10/18 18:59 06:59 18:59 Intake Total 2700 / 2700 1343 / 1343 100 / 100 Balance 2700 / 2700 1343 / 1343 100 / 100 Weight 66.7 kg Intake: IV 100 / 100 100 / 100 Rocephin Inj 2,000 MG In NS Inj 100 / 100 100 / 100 100 ML @ 200 mls/hr IV.SIG Q24H [facility] Rx#:[id number] Oral 2600 / 2600 840 / 840 Tube Feeding 503 / 503 Other: # Voids 5 2 Date of Last Bowel Movement 02/09/18 02/09/18 # Bowel Movements 1 Imaging: ITS Impressions Head CT 01/05/18 05:01 CONCLUSION: 1. No acute intracranial findings. 2. Air-fluid levels in the right maxillary and sphenoid sinuses suggesting possible acute sinusitis versus air-fluid levels related to intubation.. . Abdomen X-Ray 01/20/18 05:00 CONCLUSION: Feeding tube distal tip is either in the first portion of the duodenum or pylorus region of the stomach. Venous Doppler Study 01/22/18 00:00 CONCLUSION: No venous thrombosis is identified within either upper extremity. Chest CT 01/25/18 00:00 CONCLUSION: 1. Small bilateral pleural effusions overall improved from January 08. 2. Improving bilateral airspace consolidation in the lungs. 3. Endotracheal tube, nasogastric tube and feeding tube and right central line in good position. Chest X-Ray 02/10/18 09:01 CONCLUSION: 1. Right basilar atelectasis and/or infiltrate. 2. Persistent elevation of the right hemidiaphragm. 3. Very minimal discoid atelectasis is noted within left lung base. Physical Exam: GENERAL: No acute distress. HEENT: Pupils reactive. Extraocular movements grossly intact. Oropharyngeal mucosa is slightly dry. LUNGS: Clear breath sounds. HEART: Regular S1, S2, without murmurs, rubs or gallops. ABDOMEN: soft, not tender, positive bowel sounds. EXTREMITIES: No clubbing or cyanosis or edema. SKIN: No diffuse rash. NEUROLOGIC: No gross focal finding PSYCHIATRIC: Calm and cooperative. Assessment and Plan - Plan IMPRESSION: 1. Pneumonia. Staph aureus 2. Bacteremia due to Staphylococcus coag negative. Repeat blood cultures have no growth. This possibly could be contamination. 3. Acute respiratory failure. 4. Intravenous drug use. 5. Probable aspiration. ? R UE DVT Patient is clinically stable. RECOMMENDATIONS: Okay to discharge from ID standpoint. Discussed with Dr. Eisenberg.
--- NOTE | 2018-02-10 12:10 | P.PNGI ---
Subjective Interval history: Patient will follow up ambulating in [place] Discharge home today per attending GI asked to see patient in regards to tube feeding obstruction Patient wishes to continue G-tube feeds along with p.o. intake <Cee Saha - Last Filed: 02/10/18 12:04> Physical Exam Vital signs: Vital Signs 02/09/18 16:00 02/09/18 16:17 02/09/18 20:00 Temperature 97.9 F 97.7 F Pulse Rate 91 H 90 87 Respiratory Rate 18 18 15 Blood Pressure 136/83 124/68 Pulse Oximetry 96 91 L 02/10/18 00:00 02/10/18 08:00 02/10/18 08:31 Temperature 97.7 F 97.8 F Pulse Rate 87 88 103 H Respiratory Rate 15 18 18 Blood Pressure 124/68 123/75 Pulse Oximetry 91 L 98 97 Intake & Output 02/09/18 02/10/18 02/10/18 18:59 06:59 18:59 Intake Total 2700 / 2700 1343 / 1343 100 / 100 Balance 2700 / 2700 1343 / 1343 100 / 100 Weight 66.7 kg Intake: IV 100 / 100 100 / 100 Rocephin Inj 2,000 MG In NS Inj 100 / 100 100 / 100 100 ML @ 200 mls/hr IV.SIG Q24H [facility] Rx#:[id number] Oral 2600 / 2600 840 / 840 Tube Feeding 503 / 503 Other: # Voids 5 2 Date of Last Bowel Movement 02/09/18 02/09/18 # Bowel Movements 1 - Constitutional no acute distress - Routine HEENT Exam Head: Present: normocephalic ENT: Present: mucous membranes moist - Routine Neck Exam Present: supple - Routine Respiratory Exam Present: CTA bilaterally. Absent: accessory muscle use - Routine Cardiovascular Exam Present: RRR - Routine Abdominal Exam Present: soft, normoactive bowel sounds, ostomy. Absent: tenderness, distended , guarding, firm Comments: Gastrostomy tube intact or drainage noted - Routine Extremities Exam Absent: edema - Routine Skin Exam Present: dry, warm. Absent: pallor - Routine Neurological Exam Present: alert - Routine Psychiatric Exam Present: normal affect, cooperative - Urinary Catheter Management Indwelling Urethral Catheter Cath placed during this visit: yes, but has since been removed by the nurse Reason for continuing: Decision to DC catheter Insertion date: 01/18/18 Insertion time: 09:10 Removal date: 01/28/18 Removal time: 06:00 Condom Cath placed during this visit: yes Urethral indwelling: Yes Reason for continuing: Hourly intake/output Insertion date: 01/28/18 Insertion time: 06:00 <Cee Saha - Last Filed: 02/10/18 12:04> Vital signs: Vital Signs 02/09/18 16:00 02/09/18 16:17 02/09/18 20:00 Temperature 97.9 F 97.7 F Pulse Rate 91 H 90 87 Respiratory Rate 18 18 15 Blood Pressure 136/83 124/68 Pulse Oximetry 96 91 L 02/10/18 00:00 02/10/18 08:00 02/10/18 08:31 Temperature 97.7 F 97.8 F Pulse Rate 87 88 103 H Respiratory Rate 15 18 18 Blood Pressure 124/68 123/75 Pulse Oximetry 91 L 98 97 Intake & Output 02/09/18 02/10/18 02/10/18 18:59 06:59 18:59 Intake Total 2700 / 2700 1343 / 1343 100 / 100 Balance 2700 / 2700 1343 / 1343 100 / 100 Weight 66.7 kg Intake: IV 100 / 100 100 / 100 Rocephin Inj 2,000 MG In NS Inj 100 / 100 100 / 100 100 ML @ 200 mls/hr IV.SIG Q24H [facility] Rx#:[id number] Oral 2600 / 2600 840 / 840 Tube Feeding 503 / 503 Other: # Voids 5 2 Date of Last Bowel Movement 02/09/18 02/09/18 # Bowel Movements 1 - Urinary Catheter Management Indwelling Urethral Catheter Cath placed during this visit: no Condom Cath placed during this visit: no <Nadia Hamilton - Last Filed: 02/10/18 12:42> Results - Labs CBC & Chem 7: 02/08/18 06:34 02/04/18 05:17 - Imaging Impressions Chest X-Ray 02/10/18 09:01 CONCLUSION: 1. Right basilar atelectasis and/or infiltrate. 2. Persistent elevation of the right hemidiaphragm. 3. Very minimal discoid atelectasis is noted within left lung base. <Cee Saha - Last Filed: 02/10/18 12:04> - Labs CBC & Chem 7: 02/08/18 06:34 02/04/18 05:17 - Imaging Impressions Chest X-Ray 02/10/18 09:01 CONCLUSION: 1. Right basilar atelectasis and/or infiltrate. 2. Persistent elevation of the right hemidiaphragm. 3. Very minimal discoid atelectasis is noted within left lung base. <Nadia Hamilton - Last Filed: 02/10/18 12:42> Assessment and Plan - Plan This patient is a 37-year-old male who was brought to [facility] emergency room post heroin overdose. Patient is now post placement of tracheostomy and is mechanically ventilated. Sinus tach in the 110's on conveyor monitor blood pressure 114/68 patient currently with 95-96% saturation. Propofol and fentanyl currently infusing. Patient has NG tube in place with Oxepa infusing at 20 mL's per hour as per dietary recommendation. Dignity shield in place with moderate amount of brown stool noted. Our service has been consulted to evaluate patient for PEG tube placement. 01/28/18 S/P EGD/PEG on 01/27/18 02/05/18 GI asked to see patient due to pain around peg tube site. Diaphragm adjusted and loosened. Patient acknowledges resolved pain. no drainage or redness noted sign 02/10/2018 GI asked to see patient due to plan discharge home today As per attending, patient wishes to keep PEG tube as well as nutrition with p.o. intake Bedside RN reports patient taking 90-100% p.o. intake Patient agrees to follow-up with GI post discharge for possible PEG tube removal Patient provided will with printed educational materials. Patient instructed and is able to return demonstrate feeding and tube care. Plan -Tube feedings as per dietary recommendation -Case management to assist with tube feeding product -Dietary to reconsult with patient regarding adequate nutritional intake -Patient agrees to follow-up with GI post discharge for PEG tube removal and evaluation This patient has been seen by myself and and this note is written on his behalf - Attending Attestation Dr. Hamilton <Cee Saha - Last Filed: 02/10/18 12:04> - Attending Attestation Agree with above assessment and plan. <Nadia Hamilton Last Filed: 02/10/18 12:42>
--- NOTE | 2018-02-10 14:40 | P.DS ---
Date of admission: 01/05/18 04:48 Primary care physician: UNKNOWN Brief History from admission: 37-year-old male who is brought to [facility] emergency department after friends contacted [facility] due to decreased mental status with suspected heroin overdose. He had used heroin earlier in the evening. [facility] reportedly found him laying in emesis with a thready pulse. They gave him sequential doses of Narcan to a total of 2.4 mg IV at which point he became more awake and alert. He then had multiple episodes of vomiting in route. NG tube was placed by the paramedics and they aspirated gastric contents and then removed s NG prior to arrival. His room air sats were reportedly 84% and he was placed on NR. Patient told Dr. Lovett that this was his first time using heroin and that he injected it. CXR demonstrated RLL opacity. He was started on Unasyn for aspiration pneumonia and given nebs. He eventually was intubated due to hypoxia with sats in high 80s despite nonrebreather. Cupola Melting Supervisor consulted for admission. DS: Summary - Time Spent with Patient Total time spent providing and/or coordinating discharge services: - Quality: VTE Deep Vein Thrombosis/Pulmonary Embolism Present on Admission: No Exam Vital signs: Vital Signs 02/09/18 16:00 02/09/18 16:17 02/09/18 20:00 Temperature 97.9 F 97.7 F Pulse Rate 91 H 90 87 Respiratory Rate 18 18 15 Blood Pressure 136/83 124/68 Pulse Oximetry 96 91 L 02/10/18 00:00 02/10/18 08:00 02/10/18 08:31 Temperature 97.7 F 97.8 F Pulse Rate 87 88 103 H Respiratory Rate 15 18 18 Blood Pressure 124/68 123/75 Pulse Oximetry 91 L 98 97 Intake & Output 02/09/18 02/10/18 02/10/18 18:59 06:59 18:59 Intake Total 2700 / 2700 1343 / 1343 100 / 100 Balance 2700 / 2700 1343 / 1343 100 / 100 Weight 66.7 kg Intake: IV 100 / 100 100 / 100 Rocephin Inj 2,000 MG In NS Inj 100 / 100 100 / 100 100 ML @ 200 mls/hr IV.SIG Q24H [facility] Rx#:[id number] Oral 2600 / 2600 840 / 840 Tube Feeding 503 / 503 Other: # Voids 5 2 Date of Last Bowel Movement 02/09/18 02/09/18 # Bowel Movements 1 Results - Impressions ITS Impressions Head CT 01/05/18 05:01 CONCLUSION: 1. No acute intracranial findings. 2. Air-fluid levels in the right maxillary and sphenoid sinuses suggesting possible acute sinusitis versus air-fluid levels related to intubation.. . Abdomen X-Ray 01/20/18 05:00 CONCLUSION: Feeding tube distal tip is either in the first portion of the duodenum or pylorus region of the stomach. Venous Doppler Study 01/22/18 00:00 CONCLUSION: No venous thrombosis is identified within either upper extremity. Chest CT 01/25/18 00:00 CONCLUSION: 1. Small bilateral pleural effusions overall improved from January 08. 2. Improving bilateral airspace consolidation in the lungs. 3. Endotracheal tube, nasogastric tube and feeding tube and right central line in good position. Chest X-Ray 02/10/18 09:01 CONCLUSION: 1. Right basilar atelectasis and/or infiltrate. 2. Persistent elevation of the right hemidiaphragm. 3. Very minimal discoid atelectasis is noted within left lung base. Discharge Plan - Discharge Disposition Patient Disposition: 01 Discharge Home - Discharge Condition Condition: Stable - Discharge Order Discharge Orders: Discharge Order (Routine); Ordered 02/10/18 Ordered By: Serge Eisenberg - Discharge Details Discharge Comment: DC once cleared with pulmonolgy and ID - Physicians Team Primary Care Provider: UNKNOWN, Attending Provider: Serge Eisenberg Other Providers: Bishnu Lozoya MD ; Alex Nieto MD ; Nitin Newman MD ; Annalisa Barros MD
--- NOTE | 2018-02-10 16:09 | P.DIET ---
Nutritional Evaluation Type of nutrition evaluation: follow-up Nutrition consult regarding: Tube Feeding Nutrition screening: [facility] Screening comments: CALORIE COUNTING from 02/05-02/08 initiated Subjective Subjective Comments: TAWNY Alvarado phoned to request pt receive diet education for his nutritional needs prior to his discharge today. TAWNY Alvarado reports pt will NOT be going home w/TF'ing formula. TAWNY Alvarado states pt has been educated regarding flushing his feeding tube. Pt planning to go home w/his Mother, who is present during this visit. Objective - Diagnosis Respiratory Failure s/p heroin overdose - Objective % IBW: 103 (IBW = 178#) Body Weight Used for Calculations: Actual (83 kg) Energy Needs - Lower Range (kCal/kg): 28 Energy Needs - Upper Range (kCal/kg): 32 Lower Limit kCal/kg (kCals): 2,327 Upper Limit kCal/kg (kCals): 2,659 Lower Limit Protein Factor (Grams per Kg): 1.2 Upper Limit Protein Factor (Grams per Kg): 1.6 Lower Protein Needs (Protein): 100 Upper Protein Needs (Protein): 133 Dietitian Reviewed in Medical Record: Current diet, Curent medications, Intake & Output, Labs, Medical history, Tube feeding Diet Order: TF' and Mechanical Soft Speech Therapy Recommendations: Yes (02/10/19 Mec Soft Thin Liquids) Objective Comments: 01/27/18 Peg tube placement 01/27/18 Trach placement 02/07/18 Trach down sized to #6 Assessment Assessment: Pt and his Mother provided w/diet education for Mech Soft diet(per ST Recs), kcal and protein needs daily. Rec pt have nutrient-dense oral kcal intake Q 2- hours while awake w/examples given. Rec pt weigh himself daily. Pt has been educated by nursing for free water flushes via feeding tube/tube patency and to follow-up w/GI in 2-weeks. Bolus feeding w/Ensure, Boost and other oral nutritional supplements via feeding tube is not optimal. Pt's and his Mother's questions answered to their satisfaction. Brought forward from previous note 02/07/18: Pt remains at high nutrition risk r /t the need for TFing, poor po intake, wt loss and clinical status. Calorie Count 02/05 through 02/08 w/Inadequate po intake. Pt averaged 272 kcals and 34g protein daily. Rec TF'ing w/Jevity 1.5 w/increase goal rate to 65 mls/hr 6pm to 6am to offer 1170 kcal, 50g protein and 593ml free water. Rec a bolus feeding w/ Jevity 1.5 of 360ml for meals w/LESS than 50% po intake. Each bolus feeding will offer 533 kcal, 23g protein and 270ml free water. Send Ensure Enlive TID(= 350 kcal, 20g protein per serving). Continue Beneprotein as ordered will provide 36 additional grams of protein. Labs, wts and clinical course reviewed. Wt loss to 69 kg noted. Regional Safety Manager's note states "concern for nutritional status". Please note that the pt has been significantly underfed since admission. Recommendations: 1. Pt and his Mother provided w/diet education for [facility] Soft diet(per ST Recs), kcal and protein needs daily 2. Rec pt have nutrient-dense oral kcal intake Q 2-hours while awake w/examples given 3. Rec pt weigh himself daily 4. Pt has been educated by nursing for free water flushes via feeding tube/tube patency and to follow-up w/GI in 2-weeks 5. Bolus feeding w/Ensure, Boost and other oral nutritional supplements via feeding tube is not optimal
--- NOTE | 2018-02-11 14:32 | GIPROC ---
[facility] [address] [facility]. [facility], [id number] EGD PROCEDURE REPORT EXAM DATE: 01/27/2018 PATIENT NAME: Anthony Peralta MR #: [id number] BIRTHDATE: 1980 ATTENDING: Alex Nieto MD ORDER #: [id number] SALON PROFESSIONAL: Vivian Sales Pena, Gabriela, and Yadira Figueredo STATUS: inpatient INDICATIONS: The patient is a 37 yr old male here for an EGD due to G-Tube foer enteral feeding PROCEDURE PERFORMED: EGD w/ percutaneous gastrostomy tube placement MEDICATIONS: Per Anesthesia and None. TOPICAL ANESTHETIC: none CONSENT: The patient understands the risks and benefits of the procedure and understands that these risks include, but are not limited to: sedation, allergic reaction, infection, perforation and/or bleeding. Alternative means of evaluation and treatment include, among others: physical exam, x-rays, and/or surgical intervention. The patient elects to proceed with this endoscopic procedure. medical equipment was checked for proper function. Hand hygiene and appropriate measures for infection prevention was taken. After the risks, benefits and alternatives of the procedure were thoroughly explained, Informed consent was verified, confirmed and timeout was successfully executed by the treatment team. The patient was anesthetized with topical anesthesia and the Pentax EG-[id number] endoscope was introduced through the mouth and advanced to the second portion of the duodenum. Retroflexed views revealed no abnormalities The gastroscope was then slowly withdrawn and removed. ESOPHAGUS: The mucosa of the esophagus appeared normal. STOMACH: The mucosa of the stomach appeared normal. DUODENUM: The duodenal mucosa appeared normal in the entire duodenum. Stomach distended with air ,spot marked on LUQ .2 cc Lidocaine injected sq at this spot. 1 cm incision made at this site .Trocar was passed through the incision.GW passed through the trocar outer sheath into gastric cavity under endoscopic vision.The GW grawed with a snare passed trough the scope and pulled out by withdrawing the scope. 20 F PEG tube attached to the scope and pulled out of the ant abdominal wall by pulling on the GW.Proper placement confirmed by the scope. ADVERSE EVENTS: There were no complications. IMPRESSIONS: 1. The esophagus appeared normal 2. The mucosa of the stomach appeared normal 3. Normal duodenal mucosa in the entire duodenum 4. Retroflexed views revealed no abnormalities 5. Successful placement of GTube RECOMMENDATIONS: Start tube feeding in 4 hrs PATIENT CONDITION: stable DISPOSITION: Inpatient REPEAT EXAM: NONE Alex Nieto MD eSigned: Alex Nieto MD 02/11/2018 2:32 PM cc: PATIENT NAME: Kathryn Anthony M MR#: [id number]
== END 2018-02-10 15:56 | disposition home or self-care (01) ==
LOC: NEPC 03:18 → NEDA 04:48 → N03 06:24 → N07 02-04 18:15
PROVIDERS: ADMIT Hospitalist; ATTEND Hospitalist
PROC: PANENDO (2018-01-27 14:00)